=== PATIENT | male | born 1955 | race Caucasian/White ===

== ENCOUNTER 2021-03-23 12:40 | Emergency (ER) | payer MEDICARE, SELFPAY ==
[2021-03-23] VITALS (8 sets, daily range): BP systolic 126–194; BP diastolic 66–80; PULSE 90–120; RESP 18–23; TEMP 37.3; O2SAT 90–96; BMI 43.5
[2021-03-23 13:04] LABS: Glucose Point of Care 420 mg/dL (70-110)
--- NOTE | 2021-03-23 13:10 | XR_ITS ---
WS: [id number] Right clavicle, 2 views, 03/23/2021 Clinical Data: pain Comparison: None. Findings: No fractures or dislocations are seen. The AC joint is normal. The soft tissues are unremarkable. The sternoclavicular joint is normal. XR/[place] [id number] Impression: Negative right clavicle.
--- NOTE | 2021-03-23 13:10 | CT_ITS ---
WS: [id number] CT HEAD TECHNIQUE: Noncontrast CT of the head obtained from the skullbase to the vertex. CLINICAL INFORMATION: fall COMPARISON: None. DLP: 2004.[address] scans at [facility] use at least one of these dose optimization techniques: automated e xposure control; mA and/or kV adjustment per patient size (includes targeted exams where dose is matc hed to clinical indication); or iterative reconstruction. FINDINGS: Some images degraded by beam hardening artifact. No evidence of intracranial hemorrhage or mass effect. Prior postoperative changes left frontotempora l craniotomy. Encephalomalacia in the underlying frontal and anterior temporal lobes. Ventricular sys tem and basal cisterns are patent. Mild small vessel changes with mild parenchymal volume loss. No ex tra-axial fluid collections. No evidence of mass or mass effect. Paranasal sinuses and mastoid air cells are well aerated. .Normal visualized soft tissues. CT/CT head wo con* [id number] IMPRESSION: 1. No evidence of intracranial hemorrhage or mass effect. 2. Mild small vessel changes with mild parenchymal volume loss. 3. Prior postoperative changes left frontal temporal craniotomy with underlyin g encephalomalacia. 4. No acute intracranial findings.
--- NOTE | 2021-03-23 13:10 | XR_ITS ---
WS: [id number] Right shoulder, 3 views, 03/23/2021 Clinical Data: pain Comparison: None. Findings: No fractures or dislocations are seen. The AC joint is normal. The adjacent right clavicle, right sca pula and ribs are normal. The soft tissues are unremarkable. XR/XR shoulder RT min 2V* [id number] Impression: Negative right shoulder.
--- NOTE | 2021-03-23 13:10 | CT_ITS ---
WS: [id number] CT FACIAL BONES TECHNIQUE: Noncontrast facial bones with coronal and sagittal reformatted images. CLINICAL INFORMATION: fall COMPARISON: None. DLP: 987.[address] scans at [facility] use at least one of these dose optimization techniques: automated e xposure control; mA and/or kV adjustment per patient size (includes targeted exams where dose is matc hed to clinical indication); or iterative reconstruction. FINDINGS: Paranasal sinuses are well aerated. Mastoid air cells are well aerated. Prior postoperative changes l eft frontal craniotomy. Normal zygoma. Normal pterygoid plates. Normal lamina papyracea bilaterally. Anterior nasal bones are normal. Normal mandible. No evidence of mandibular fracture dislocation. Inf erior orbits are normal. Prominent periparotid and intraparotid lymph nodes in the upper neck partial ly visualized. This can be followed up with neck CT. CT/CT facial bones wo con* [id number] IMPRESSION: 1. No acute facial fractures. 2. Paranasal sinuses and mastoid air cells well aerated. 3. Prominent periparotid and intraparotid lymph nodes partially visualized. Th is can be followed up with contrast-enhanced neck CT.
--- NOTE | 2021-03-23 13:10 | XR_ITS ---
WS: [id number] Right arm and humerus, 2 views, 03/23/2021 Clinical Data: pain Comparison: None. Findings: No fractures or dislocations are seen. The shaft of the humerus is intact. The soft tissues of the r ight arm are normal. XR/[place] [id number] Impression: Negative right arm and humerus.
--- NOTE | 2021-03-23 13:10 | XR_ITS ---
WS: [id number] Portable AP upright chest, 03/23/2021 Clinical Data: dyspnea Comparison: Portable chest, 01/26/2018. Findings: No nodules, masses or effusions are seen. The heart is enlarged. The pulmonary vascularity is not increased. No pneumonia or pneumothorax is seen. There is left basilar atelectasis and/or scar ring unchanged. The aortic arch and descending thoracic aorta show minimal tortuosity. XR/XR chest 1V portable [id number] Impression: Cardiomegaly and atherosclerosis.
--- NOTE | 2021-03-23 13:10 | XR_ITS ---
WS: [id number] Right forearm, AP and lateral views, 03/23/2021 Clinical Data: pain Comparison: None. Findings: No fractures or dislocations are seen. The soft tissues are normal. The visualized right wrist and el bow show no obvious abnormalities. XR/XR forearm RT 2V [id number] Impression: Negative for fracture.
--- NOTE | 2021-03-23 13:10 | XR_ITS ---
WS: [id number] Right elbow, 3 views, 03/23/2021 Clinical Data: pain Comparison: None. Findings: No fractures or dislocations are seen. The radial head is normal. The soft tissues are unremarkable. XR/XR elbow RT min 3V* [id number] Impression: Negative right elbow.
--- NOTE | 2021-03-23 13:10 | W.ED.GENADLT ---
HPI - General Adult General: Chief complaint: General Medical Stated complaint: weakness, r shoulder pain Time Seen by Provider: 03/23/21 12:49 History of Present Illness: HPI narrative: Patient is a 65-year-old male with a history of COPD, diabetes, hypertension who presents emergency room 1 week of feeling weak. Patient says that he has been feeling nauseous and has had 4-5 episode of vomiting. Since last week, after mowing his lawn, patient noticed a red streak that is goes up to his right arm on the inner aspect. Patient also noticed a pop sensation and inability to range the R arm after mowing his lawn. Patient went to see a chiropractor for evaluation of the arm and had manipulation performed. No formal XR's were done. Since then, patient has had significant pain. Denies any fever or chills, cough/runny nose/sore throat. Patient reports significant exertional dyspnea. Of note, patient fell yesterday and hit his head. Onset: 1 week ago Duration:1 week Location:home Severity:moderate Review of Systems Narrative: Constitutional: No fever, no chills. HEENT: No vision changes CV: No chest pain, no palpitations PULM: no cough, +dyspnea. GI: No abdominal pain, +N/+V/-D. : No dysuria MSKEL: +R arm pain, +R inner arm redness, +R shoulder pain to ROM SKIN: No new rashes, no lesions. NEURO: No headache, no focal weakness. HEME: No visible bruises PSYCH: Normal mood Physical Exam Narrative: EXAM NARRATIVE: Head: Atraumatic Eyes: PERRL, conjunctiva without injection ENT: Mucous membrane moist NECK: Supple, ROM intact LUNGS: +Wheezing b/l CV: RRR ABDOMEN: Soft, nontender in all quadrants EXTREMITY: Normal ROM SKIN: +erythema over the R arm on the inner aspect, no focal crepitus to palpation on the affected arm, +moderate tenderness to palpation over the R shoulder/R eblow and R humerus NEURO: Awake and alert, no focal motor deficits PSYCH: Normal mood and affect Course Vital Signs: Vital signs: Vital Signs Temperature 99.2 F 03/23/21 12:47 Pulse Rate 109 H 03/23/21 21:46 Respiratory Rate 22 H 03/23/21 21:46 Blood Pressure 126/66 03/23/21 21:46 Pulse Oximetry 96 03/23/21 21:46 MDM - General Adult MDM Narrative: Medical decision making narrative: 65-year-old male presents emergency room with facial redness over the inner aspect of right arm and dyspnea x1 week in the setting of nausea vomiting. On exam, patient is hemodynamically stable noted to be mildly hypoxemic to the low 90s on 3 L nasal cannula. Patient has a baseline COPD and wheezing bilaterally Will evaluate for trauma since patient reports popping sensation in the R arm and inability to move with XR. White count of 19.9 today. Hemoglobin 7.9 today. proBNP and troponin mildly elevated today. Chest x-ray showed cardiomegaly. CT brain did not show any signs of brain bleed. Suspect possible infection of the arm. Breathing treatments given for wheezing Lab showed hyponatriemia, MONCHO, anemia, and hyperglycemia. Troponin mildly elevated. Patient is given clindamycin, vancomycin and cefepime for antibiotics and IVF. CT with contrast of the upper extremity showed right subscapularis gas, intra-articular gas, and right lateral chest cellulitis concerning for possible diffuse necrotizing/gas infection. Case was discussed with Dr. Jones for informs me that he does not feel comfortable with this procedure given possible involvement of the brachial plexus. Case was discussed with Dr. Matute at [facility] who agrees with the ED to ED transfer. Disposition: Transfer to outside ED Lab Data: Labs: Lab Results 03/23/21 03/23/21 03/23/21 12:55 13:00 13:00 WBC 19.9 10^3/uL H 10 ^3/uL (4.0-10.0) RBC 3.34 10^6/uL L 10 ^6/uL (4.1-5.3) Hgb 7.9 g/dL L g/dL (11.7-16.6) Hct 26.4 % L % (42.0-52.0) MCV 79.0 fl L fl (80-94) MCH 23.7 pg L pg (28.0-34.0) MCHC 29.9 g/dL L g/dL (30.0-36.0) RDW 15.2 % H % (12.1-15.1) Plt Count 288 10^3/cmm 10^3 /cmm (130-400) MPV 10.0 fL fL (7.4-10.4) Lymph % (Auto) Not Reportable Maries % (Auto) Not Reportable Lymph # (Auto) Not Reportable Maries # (Auto) Not Reportable Total Counted 100 (0-100) Atypical Lymphs % Not Reportable Absolute Neutrophi ls 18.3 10^3/cmm H 1 0^3/cmm (1.4-6.5) Segmented Neutroph ils 64 % % Abs Segm Neuts (Ma n) 12.7 10/cmm H 10/ cmm (1.6-7.1) Band Neutrophils 28.0 % % Abs Band Neuts (Ma n) 5.6 10^3/cmm H 10 ^3/cmm (0.0-1.2) Lymphocytes (Manua l) 5 % % Monocytes (Manual) 3.0 % % Absolute Monocytes 0.6 10^3/cmm 10^3 /cmm (0.1-0.6) Eosinophils (Manua l) Not Reportable Basophils (Manual) Not Reportable Platelet Estimate Normal (Normal) Giant Platelets Trace Hypochromasia 1+ H Microcytosis Trace Tear Drop Cells Trace Ovalocytes Trace Specimen Type Sample Site ABG pH ABG pCO2 ABG pO2 ABG HCO3 ABG Base Excess Matthew Test Hematocrit O2 Delivery Device O2 Liters/Min FiO2 Environmental Compliance Inspector ID Sodium 124 mmol/L L mmol /L (136-145) Potassium 4.3 mmol/L mmol/L (3.5-5.1) Chloride 89 mmol/L L mmol/ L (98-107) Carbon Dioxide 23 mmol/L mmol/L (22-29) Anion Gap 16.3 (5-19) BUN 43 mg/dL H mg/dL (8-23) Creatinine 1.6 mg/dL H mg/dL (0.7-1.2) GFR Calculation 43.6 mL/min L mL/ min (90-130) Glucose 367 mg/dL H mg/dL (65-115) POC Glucose 420 mg/dL H mg/dL (70-110) Calculated Osmolal ity 284 mOsm/kg L mOs m/kg (285-295) Lactate Calcium 8.5 mg/dL mg/dL (8.5-10.5) Total Bilirubin 0.4 mg/dL mg/dL (0.15-1.2) AST 25 U/L U/L (0-40) ALT 13 U/L U/L (0-41) Alkaline Phosphata se 117 IU/L IU/L (40-130) Troponin T Baselin e Troponin T 120 Min [place] Troponin T Troponin T Hi Sens 6Hr Troponin T Hi Sens 6Hr Delta NT-Pro-B Natriuret Pep 983 pg/mL H pg/mL (0-125) Total Protein 6.3 g/dL L g/dL (6.6-8.7) Albumin 2.5 g/dL L g/dL (3.5-5.2) Globulin 3.8 g/dL g/dL (1.3-4.6) Lipase 21 U/L U/L (13-60) Urine Color Urine Appearance Urine pH Ur Specific Gravit y Urine Protein Urine Glucose (UA) Urine Ketones Urine Blood Urine Nitrate Urine Bilirubin Urine Urobilinogen Ur Leukocyte Meg ase Urine RBC Urine WBC Ur Squamous Epith Cells Amorphous Sediment Urine Bacteria Hyaline Casts Urine Mucus SARS-CoV-2 Ag (Rap id) 03/23/21 03/23/21 03/23/21 13:00 13:00 14:38 WBC RBC Hgb Hct MCV MCH MCHC RDW Plt Count MPV Lymph % (Auto) Maries % (Auto) Lymph # (Auto) Maries # (Auto) Total Counted Atypical Lymphs % Absolute Neutrophi ls Segmented Neutroph ils Abs Segm Neuts (Ma n) Band Neutrophils Abs Band Neuts (Ma n) Lymphocytes (Manua l) Monocytes (Manual) Absolute Monocytes Eosinophils (Manua l) Basophils (Manual) Platelet Estimate Giant Platelets Hypochromasia Microcytosis Tear Drop Cells Ovalocytes Specimen Type Sample Site ABG pH ABG pCO2 ABG pO2 ABG HCO3 ABG Base Excess Matthew Test Hematocrit O2 Delivery Device O2 Liters/Min FiO2 Environmental Compliance Inspector ID Sodium Potassium Chloride Carbon Dioxide Anion Gap BUN Creatinine GFR Calculation Glucose POC Glucose Calculated Osmolal ity Lactate 2.1 mmol/L mmol/L (0.5-2.2) Calcium Total Bilirubin AST ALT Alkaline Phosphata se Troponin T Baselin e 25 ng/L H ng/L (0-15) Troponin T 120 Min [place] Troponin T Troponin T Hi Sens 6Hr Troponin T Hi Sens 6Hr [place] NT-Pro-B Natriuret Pep Total Protein Albumin Globulin Lipase Urine Color Urine Appearance Urine pH Ur Specific Gravit y Urine Protein Urine Glucose (UA) Urine Ketones Urine Blood Urine Nitrate Urine Bilirubin Urine Urobilinogen Ur Leukocyte Meg ase Urine RBC Urine WBC Ur Squamous Epith Cells Amorphous Sediment Urine Bacteria Hyaline Casts Urine Mucus SARS-CoV-2 Ag (Rap id) Negative (Negative) 03/23/21 03/23/21 03/23/21 15:10 15:12 15:53 WBC RBC Hgb Hct MCV MCH MCHC RDW Plt Count MPV Lymph % (Auto) Maries % (Auto) Lymph # (Auto) Maries # (Auto) Total Counted Atypical Lymphs % Absolute Neutrophi ls Segmented Neutroph ils Abs Segm Neuts (Ma n) Band Neutrophils Abs Band Neuts (Ma n) Lymphocytes (Manua l) Monocytes (Manual) Absolute Monocytes Eosinophils (Manua l) Basophils (Manual) Platelet Estimate Giant Platelets Hypochromasia Microcytosis Tear Drop Cells Ovalocytes Specimen Type Arterial Sample Site Radial, left ABG pH 7.36 (7.35-7.45) ABG pCO2 43.5 mmHg mmHg (35-45) ABG pO2 73.2 mmHg L mmHg (80.0-100.0) ABG HCO3 24.4 mmol/L mmol/ L (22-26) ABG Base Excess -1.0 mmol/L mmol/ L (-2.0-2.0) Matthew Test Pos Hematocrit 25.4 % L % (42-52) O2 Delivery Device Nc O2 Liters/Min 2.0 % % FiO2 28.0 % % Environmental Compliance Inspector ID Ed Sodium Potassium Chloride Carbon Dioxide Anion Gap BUN Creatinine GFR Calculation Glucose POC Glucose Calculated Osmolal ity Lactate Calcium Total Bilirubin AST ALT Alkaline Phosphata se Troponin T Baselin e Troponin T 120 Min [place] 25.87 ng/L H ng/L (0-15) Delta Troponin T 0.87 ABS# ABS# (0-10) Troponin T Hi Sens 6Hr Troponin T Hi Sens 6Hr [place] NT-Pro-B Natriuret Pep Total Protein Albumin Globulin Lipase Urine Color Yellow (Yellow) Urine Appearance Hazy A (CLEAR) Urine pH 6.5 (5-7) Ur Specific Gravit y 1.010 (1.005-1.030) Urine Protein Neg (Negative) Urine Glucose (UA) Norm (Normal) Urine Ketones Negative (Negative) Urine Blood 3+ H (Negative) Urine Nitrate Negative (Negative) Urine Bilirubin Neg (Negative) Urine Urobilinogen Norm mg/dL mg/dL (Negative) Ur Leukocyte Meg ase Negative (Negative) Urine RBC 5-10 /hpf H /hpf (0-2) Urine WBC 5-10 /hpf H /hpf (0-5) Ur Squamous Epith Cells Not Reportable Amorphous Sediment 2+ /hpf /hpf Urine Bacteria 1+ /hpf H /hpf (NONE) Hyaline Casts 0-4 /lpf H /lpf Urine Mucus 1+ /hpf /hpf SARS-CoV-2 Ag (Rap id) 03/23/21 19:15 WBC RBC Hgb Hct MCV MCH MCHC RDW Plt Count MPV Lymph % (Auto) Maries % (Auto) Lymph # (Auto) Maries # (Auto) Total Counted Atypical Lymphs % Absolute Neutrophi ls Segmented Neutroph ils Abs Segm Neuts (Ma n) Band Neutrophils Abs Band Neuts (Ma n) Lymphocytes (Manua l) Monocytes (Manual) Absolute Monocytes Eosinophils (Manua l) Basophils (Manual) Platelet Estimate Giant Platelets Hypochromasia Microcytosis Tear Drop Cells Ovalocytes Specimen Type Sample Site ABG pH ABG pCO2 ABG pO2 ABG HCO3 ABG Base Excess Matthew Test Hematocrit O2 Delivery Device O2 Liters/Min FiO2 Environmental Compliance Inspector ID Sodium Potassium Chloride Carbon Dioxide Anion Gap BUN Creatinine GFR Calculation Glucose POC Glucose Calculated Osmolal ity Lactate Calcium Total Bilirubin AST ALT Alkaline Phosphata se Troponin T Baselin e Troponin T 120 Min [place] Troponin T Troponin T Hi Sens 6Hr 23.23 ng/L H ng/L (0-15) Troponin T Hi Sens 6Hr Delta -1.77 ng/L L ng/L (0-12) NT-Pro-B Natriuret Pep Total Protein Albumin Globulin Lipase Urine Color Urine Appearance Urine pH Ur Specific Gravit y Urine Protein Urine Glucose (UA) Urine Ketones Urine Blood Urine Nitrate Urine Bilirubin Urine Urobilinogen Ur Leukocyte Meg ase Urine RBC Urine WBC Ur Squamous Epith Cells Amorphous Sediment Urine Bacteria Hyaline Casts Urine Mucus SARS-CoV-2 Ag (Rap id) Imaging Data^: Other Imaging: Radiologist's impression: [address] [address]NZyt ReportSigned Patient: Juan Thomasnit #: [id number]: 6Acct#:[id number]/Sex: 65 / MADM Date: 03/23/21Loc: ERRoom/Bed:Attending Dr: Ordering Provider/Ordering MD: Maru Ford MD Date of Service: 03/23/21 Procedure(s): XR shoulder RT min 2V* 24172 Accession Number(s): [id number] Report Number: [id number] WS: [email or web address] Right shoulder, 3 views, 03/23/2021 Clinical Data: pain Comparison: None. Findings: No fractures or dislocations are seen. The AC joint is normal. The adjacent right clavicle, right scapula and ribs are normal. The soft tissues are unremarkable. XR/XR shoulder RT min 2V* 23950 Impression: Negative right shoulder. Dictated By:Cortney Goss MDSigned By:Cortney Goss MDSigned Date/Time:03/23/211407DD/ [address] [place] [address], [place] [address]VOic ReportSigned Patient: Juan Thomas #: [id number]: 1955cct#:[id number]/Sex: 65 / MADM Date: 03/23/21Loc: ERRoom/Bed:Attending Dr: Ordering Provider/Ordering MD: Maru Ford MD Date of Service: 03/23/21 Procedure(s): [place] [address] Accession Number(s): [id number] Report Number: [id number] WS: [email or web address] Right arm and humerus, 2 views, 03/23/2021 Clinical Data: pain Comparison: None. Findings: No fractures or dislocations are seen. The shaft of the humerus is intact. The soft tissues of the right arm are normal. XR/[place] [address] Impression: Negative right arm and humerus. Dictated By:Cortney Goss MDSigned By:Cortney Goss MDSigned Date/Time:03/23/21 140DD/ 1408 [facility] [place], [place] [address]LR Scan ReportSigned Patient: Juan Thomas #: [id number]: 1955cct#:[id number]/Sex: 65 / MADM Date: 03/23/21Loc: ERRoom/Bed:Attending Dr: Ordering Provider/Ordering MD: Maru Ford MD Date of Service: 03/23/21 Procedure(s): CT head wo con* 79362 Accession Number(s): [id number] Report Number: [id number] WS: [id number] CT HEAD TECHNIQUE: Noncontrast CT of the head obtained from the skullbase to the vertex. CLINICAL INFORMATION: fall COMPARISON: None. DLP: 2004.[address] scans at [facility] use at least one of these dose optimization techniques: automated exposure control; mA and/or kV adjustment per patient size (includes targeted exams where dose is matched to clinical indication); or iterative reconstruction. FINDINGS: Some images degraded by beam hardening artifact. No evidence of intracranial hemorrhage or mass effect. Prior postoperative changes left frontotemporal craniotomy. Encephalomalacia in the underlying frontal and anterior temporal lobes. Ventricular system and basal cisterns are patent. Mild small vessel changes with mild parenchymal volume loss. No extra-axial fluid collections. No evidence of mass or mass effect. Paranasal sinuses and mastoid air cells are well aerated. .Normal visualized soft tissues. CT/CT head wo con* 81106 IMPRESSION: 1. No evidence of intracranial hemorrhage or mass effect. 2. Mild small vessel changes with mild parenchymal volume loss. 3. Prior postoperative changes left frontal temporal craniotomy with underlying encephalomalacia. 4. No acute intracranial findings. Dictated By:Daljit Villalpando MDSigned By:Daljit Villalpando MDSigned Date/Time:03/23/21 1401DD/ 1358 [address] Thomasnis Marie 65 M 1955 [facility] [place] [address]KVpb ReportSigned Patient: Juan Thomas #: [id number]: 1955cct#:[id number]/Sex: 65 / MADM Date: 03/23/21Loc: ERRoom/Bed:Attending Dr: Ordering Provider/Ordering MD: Maru Ford MD Date of Service: 03/23/21 Procedure(s): XR forearm RT 2V 68339 Accession Number(s): [id number] Report Number: [id number] WS: [email or web address] Right forearm, AP and lateral views, 03/23/2021 Clinical Data: pain Comparison: None. Findings: No fractures or dislocations are seen. The soft tissues are normal. The visualized right wrist and elbow show no obvious abnormalities. XR/XR forearm RT 2V 56484 Impression: Negative for fracture. Dictated By:Cortney Goss MDSigned By:Cortney Goss MDSigned Date/Time:03/23/[address] [address]FP Scan ReportSigned Patient: Juan Thomas #: [id number]: 1955t#:[id number]/Sex: 65 / MAD Date: 03/23/21Loc: ERRoom/Bed:Attending Dr: Ordering Provider/Ordering MD: Maru Ford MD Date of Service: 03/23/21 Procedure(s): CT facial bones wo con* 90032 Accession Number(s): [id number] Report Number: [id number] WS: [id number] CT FACIAL BONES TECHNIQUE: Noncontrast facial bones with coronal and sagittal reformatted images. CLINICAL INFORMATION: fall COMPARISON: None. DLP: 987.[address] scans at [facility] use at least one of these dose optimization techniques: automated exposure control; mA and/or kV adjustment per patient size (includes targeted exams where dose is matched to clinical indication); or iterative reconstruction. FINDINGS: Paranasal sinuses are well aerated. Mastoid air cells are well aerated. Prior postoperative changes left frontal craniotomy. Normal zygoma. Normal pterygoid plates. Normal lamina papyracea bilaterally. Anterior nasal bones are normal. Normal mandible. No evidence of mandibular fracture dislocation. Inferior orbits are normal. Prominent periparotid and intraparotid lymph nodes in the upper neck partially visualized. This can be followed up with neck CT. CT/CT facial bones wo con* 87192 IMPRESSION: 1. No acute facial fractures. 2. Paranasal sinuses and mastoid air cells well aerated. 3. Prominent periparotid and intraparotid lymph nodes partially visualized. This can be followed up with contrast-enhanced neck CT. Dictated By:Daljit Villalpando MDSigned By:Daljit Villalpando MDSigned Date/Time:03/23/21 1406DD/ [address] [place], [place] [address]DQqd ReportSigned Patient: Juan Thomas #: [id number]: 1955cct#:[id number]/Sex: 65 MADM Date: 03/23/21Loc: ERRoom/Bed:Attending Dr: Ordering Provider/Ordering MD: Maru Ford MD Date of Service: 03/23/21 Procedure(s): XR elbow RT min 3V* 64506 Accession Number(s): [id number] Report Number: [id number] WS: [email or web address] Right elbow, 3 views, 03/23/2021 Clinical Data: pain Comparison: None. Findings: No fractures or dislocations are seen. The radial head is normal. The soft tissues are unremarkable. XR/XR elbow RT min 3V* 94222 Impression: Negative right elbow. Dictated By:Cortney Goss MDSigned By:Cortney Goss MDSigned Date/Time:03/23/21 1409DD/ 1409\ [facility] [place], [place] [address]WMhl ReportSigned Patient: Juan Thomas #: [id number]: 1955cct#:[id number]/Sex: 65 / MADM Date: 03/23/21Loc: ERRoom/Bed:Attending Dr: Ordering Provider/Ordering MD: Maru Ford MD Date of Service: 03/23/21 Procedure(s): [place] [address] Accession Number(s): [id number] Report Number: [id number] WS: [email or web address] Right clavicle, 2 views, 03/23/2021 Clinical Data: pain Comparison: None. Findings: No fractures or dislocations are seen. The AC joint is normal. The soft tissues are unremarkable. The sternoclavicular joint is normal. XR/[place] [address] Impression: Negative right clavicle. Dictated By:Cortney Goss MDSigned By:Cortney Goss MDSigned Date/Time:03/23/21 1407DD/ [address] [place], [place] [address]WBmk ReportSigned Patient: Juan Thomas #: [id number]: 1955cct#:[id number]/Sex: 65 / MADM Date: 03/23/21Loc: ERRoom/Bed:Attending Dr: Ordering Provider/Ordering MD: Maru Ford MD Date of Service: 03/23/21 Procedure(s): XR chest 1V portable 30400 Accession Number(s): [id number] Report Number: [id number] WS: [email or web address] Portable AP upright chest, 03/23/2021 Clinical Data: dyspnea Comparison: Portable chest, 01/26/2018. Findings: No nodules, masses or effusions are seen. The heart is enlarged. The pulmonary vascularity is not increased. No pneumonia or pneumothorax is seen. There is left basilar atelectasis and/or scarring unchanged. The aortic arch and descending thoracic aorta show minimal tortuosity. XR/XR chest 1V portable 21876 Impression: Cardiomegaly and atherosclerosis. Dictated By:Cortney Goss MDSigned By:Cortney Goss MDSigned Date/Time:03/23/218DD/ 1426 [facility] [place], [place] [address]SS Scan ReportSigned Patient: Juan Thomas #: [id number]: 1955t#:[id number]/Sex: 65 / MADM Date: 03/23/21Loc: ERRoom/Bed:Attending Dr: Ordering Provider/Ordering MD: Maru Ford MD Date of Service: 03/23/21 Procedure(s): CT humerus RT w con Accession Number(s): [id number] Report Number: [id number] PROCEDURE INFORMATION: Exam: CT Right Upper Extremity With Contrast, Upper Arm Exam date and time: 03/23/2021 5:10 PM Age: 65 years old Clinical indication: Pain; Swelling; Arm, upper; Right; Upper arm; Additional info: Right shoulder pain- eval soft tissue infection TECHNIQUE: Imaging protocol: CT of the Right upper extremity with contrast material. Exam focused on the upper arm. Radiation optimization: All CT scans at this facility use at least one of these dose optimization techniques: automated exposure control; mA and/or kV adjustment per patient size (includes targeted exams where dose is matched to clinical indication); or iterative reconstruction. Contrast material: VISI 320; Contrast volume: 95 ml; Contrast route: INTRAVENOUS (IV); COMPARISON: CT humerus RT w con 03/23/2021 5:00 PM RADIATION DOSE METRICS: Total DLP (mGy-cm): 3894.39 FINDINGS: Bones/joints: No lytic bone lesions. No fractures. Unremarkable glenohumeral joint space alignment. Probable foci of air within the right glenohumeral joint. Small glenohumeral joint effusion cannot be excluded. Low-attenuation fluid and foci of gas in the right acromioclavicular joint. Soft tissues: Subcutaneous soft tissue fat stranding changes are noted in the medial right upper arm. Superficial subcutaneous soft tissue fat stranding changes are noted in the right lateral chest wall. Decreased attenuation in the right subscapularis muscle probably representing muscle necrosis or fluid pockets within the musculature. Scattered foci of air in the right axilla, subscapularis muscle, right pectoralis muscle, right biceps musculature. CT/CT humerus RT w con IMPRESSION: 1. Areas of soft tissue inflammation in the right lateral chest wall and the right upper arm consistent with cellulitis. 2. Areas of fluid attenuation in the right subscapularis with foci of gas representing myositis and possibly multifocal abscesses. 3. Intra-articular air and possible right glenohumeral joint effusion. Cannot exclude septic arthritis. 4. Intra-articular air and small amount of fluid within the right acromioclavicular joint. Septic arthritis not excluded. Radiation Dose CTDIVOL = (mGy): DLP = 3894.39 (mGy-cm) Dictated By:Prasanna Solis By:Prasanna Solis Date/Time:03/23/21 1823DD/ 1710 Discharge Plan Discharge Patient Disposition: Transfer to ED Clinical Impression: Dyspnea, Cellulitis, Anemia, Elevated troponin, Acute hyponatremia, Hypoxemia, Necrotizing soft tissue infection Condition: Stable Prescriptions: No Action atorvastatin 20 mg tablet 20 mg PO DAILY RF: 0 albuterol sulfate 2.5 mg /3 mL (0.083 %) solution for nebulization 2.5 mg inhalation Q4H PRN (Reason: Shortness Of Breath) RF: 0 spironolacton-hydrochlorothiaz 25-25 mg tablet 0.5 tab PO QAM RF: 0 sertraline 100 mg tablet 100 mg PO DAILY RF: 0 clonazepam 1 mg tablet 1 mg PO BEDTIME RF: 0 amlodipine 5 mg tablet 5 mg PO QAM RF: 0 levothyroxine 25 mcg tablet 25 mcg PO QAM RF: 0 gabapentin 800 mg tablet 800 mg PO BID RF: 0 trazodone 150 mg tablet 150 mg PO BEDTIME RF: 0 metformin 1,000 mg tablet 1,000 mg PO BID RF: 0 metoprolol tartrate 50 mg tablet 50 mg PO BID RF: 0 omeprazole 20 mg capsule,delayed release(DR/EC) 20 mg PO QAM RF: 0 lisinopril 5 mg tablet 5 mg PO DAILY RF: 0 Wixela Inhub 100-50 mcg/dose blister with device 1 ea INHALATION BID RF: 0 albuterol sulfate 90 mcg/actuation HFA aerosol inhaler 2 puff INHALATION Q4H PRN (Reason: Shortness Of Breath) RF: 0 Novolog Mix 70-30 U-100 Insuln 100 unit/mL (70-30) solution See Rx Instructions .ROUTE .COMPLEX RF: 0 ibuprofen 200 mg Tablet 800 mg PO Q8H PRN (Reason: Pain) RF: 0 Referrals: Adin,Luisa G, REFINERY OPERATOR ALKYLATION [Primary Care Provider] - Coding Level of Care Code ED Networker for Josh Gallego
--- NOTE | 2021-03-23 13:12 | ECG_ITS ---
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 Measurements Intervals [place] Rate: 92 P: 48 [place]: 171 QRS: 16 QRSD: 107 T: 44 QT: 380 QTc: 470 Interpretive Statements SINUS RHYTHM Compared to ECG 01/26/2018 00:27:42 No significant changes Electronically Signed On 03-24-2021 22:47:17 CDT by Bora Gómez M.D. [email or web address]
[2021-03-23 13:21] LABS: Hematocrit 26.4 % (42.0-52.0); Hemoglobin 7.9 g/dL (11.7-16.6); Mean Corpuscular HGB Conc 29.9 g/dL (30.0-36.0); Mean Corpuscular Hemoglobin 23.7 pg (28.0-34.0); Platelet Count 288 10^3/cmm (130-400); Red Blood Count 3.34 10^6/uL (4.1-5.3); Red Cell Distribution Width 15.2 % (12.1-15.1); White Blood Count 19.9 10^3/uL (4.0-10.0)
[2021-03-23 13:34] LABS: Lactate (Lactic Acid level) 2.1 mmol/L (0.5-2.2)
[2021-03-23 13:38] LABS: Troponin(5th) Baseline 25 ng/L (0-15)
[2021-03-23 13:44] LABS: Alanine Aminotransferase 13 U/L (0-41); Albumin Level 2.5 g/dL (3.5-5.2); Alkaline Phosphatase 117 IU/L (40-130); Aspartate Amino Transferase 25 U/L (0-40); Blood Urea Nitrogen 43 mg/dL (8-23); Calcium 8.5 mg/dL (8.5-10.5); Carbon Dioxide 23 mmol/L (22-29); Chloride 89 mmol/L (98-107); Globulin 3.8 g/dL (1.3-4.6); Glomerular Filtration Rate 43.6 mL/min (90-130); Glucose 367 mg/dL (65-115); Lipase 21 U/L (13-60); NT Pro B Type Natriuretic Pept 983 pg/mL (0-125); Osmolality Calculated 284 mOsm/kg (285-295); Sodium 124 mmol/L (136-145); Total Bilirubin 0.4 mg/dL (0.15-1.2); Total Protein 6.3 g/dL (6.6-8.7)
[2021-03-23 13:50] LABS: Anion Gap 16.3 (5-19); Creatinine Clr Calc Pharmacy 70.1914
[2021-03-23 13:51] LABS: Potassium 4.3 mmol/L (3.5-5.1)
[2021-03-23 14:12] LABS: Absolute Neutrophil 18.3 10^3/cmm (1.4-6.5); Absolute Segmented Neutrophil 12.7 10/cmm (1.6-7.1); Band Neutrophils Absolute 5.6 10^3/cmm (0.0-1.2); Giant Platelets Trace; Hypochromasia 1+; Lymphocytes 5 %; Microcytosis Trace; Monocytes Absolute 0.6 10^3/cmm (0.1-0.6); Platelet Estimate Normal (Normal); Segmented Neutrophils 64 %; Total Cells Counted 100 (0-100)
[2021-03-23 14:13] LABS: Ovalocytes Trace; Tear Drop Cells Trace
[2021-03-23] MEDS: sodium chloride 0.9% 500 ML IV (14:30)
[2021-03-23] MEDS: morphine 4 mg/mL SDV 1 mL IVP (14:30)
[2021-03-23] MEDS: ipratropium-albuterol 3 mL Neb INHALATION ×3 (15:08)
[2021-03-23] MEDS: vancomycin 1,000 MG in sodium chloride 0.9% 250 ML 250 MG IV (15:11)
--- NOTE | 2021-03-23 15:12 | ECG_ITS ---
[facility] Test Date: 2021-03-23 Pat Name: Juan Thomas Department: Room: Gender: Male Sanitizer: : 1955 Requested By: Maru Ford Order Number: [id number] Gaudencio MD: Bora Gómez M.D. Measurements Intervals [place] Rate: 96 P: 43 DC: 165 QRS: 13 QRSD: 107 T: 57 QT: 360 QTc: 455 Interpretive Statements SINUS RHYTHM MODERATE INTRAVENTRICULAR CONDUCTION DELAY [105+ ms QRS DURATION, 80+ ms Q/S IN V1/V2, NO Q AND 60+ ms R IN I/aVL/V5/V6] NONSPECIFIC ST & T-WAVE ABNORMALITY Compared to ECG 03/23/2021 14:14:03 Intraventricular conduction delay now present T-wave abnormality now present Electronically Signed On 03-24-2021 22:50:20 CDT by Bora Gómez M.D. [id number] f
--- NOTE | 2021-03-23 15:19 | PC.PHAR ---
PT STATES HE TAKES CARE OF HIS OWN MEDICATIONS-PT STATES HE TAKES CARE OF THE MEDICATIONS ENTERED-PT STATES HE IS UNSURE IF HE TAKES THE SERTRALINE 100MG DAILY EXT MED HISTORY SHOWS LAST FILLED ON 01/13/21 90D/S
[2021-03-23 15:20] LABS: SARS Covid-2 Antigen Negative (Negative)
[2021-03-23 15:20] LABS: ABG PCO2 43.5 mmHg (35-45); ABG PH Result 7.36 (7.35-7.45); Arterial Blood Gas Hematocrit 25.4 % (42-52); Blood Gas Allen Test Pos; Blood Gas Sample Type Arterial; HCO3 ABG 24.4 mmol/L (22-26); PO2 ABG 73.2 mmHg (80.0-100.0)
[2021-03-23 15:21] LABS: Blood Gas Operator Identificat ED; Blood Gas Sample Site Radial, left; Oxygen Device NC
[2021-03-23 15:36] LABS: Troponin 5 2HR 25.87 ng/L (0-15); Troponin 5 2HR Delta 0.87 ABS# (0-10)
[2021-03-23 16:49] LABS: Add Urine Microscopic? YES; Bilirubin Urine Neg (Negative); Blood Urine 3+ (Negative); Glucose Urine UA Norm (Normal); Ketones Urine Negative (Negative); Leukocyte Esterase Urine Negative (Negative); Nitrate Urine Negative (Negative); Protein Urine Neg (Negative); Urine Appearance Hazy (CLEAR); Urine Color Yellow (Yellow); Urobilinogen Urine Norm (Negative); pH Urine 6.5 (5-7)
[2021-03-23] MEDS: HYDROmorphone 1 mg/mL INJ 1 mL IVP (16:49)
[2021-03-23 16:50] LABS: Amorphous Sediment Urine 2+ /hpf; Bacteria Urine 1+ /hpf; Hyaline Casts Urine 0-4 /lpf; Mucus Urine 1+ /hpf
[2021-03-23 16:51] LABS: Add Urine Culture? No
[2021-03-23] MEDS: clindamycin 600 MG/50 ML PREMIX 100 MG IV (16:55)
--- NOTE | 2021-03-23 17:10 | CTR_ITS ---
PROCEDURE INFORMATION: Exam: CT Right Upper Extremity With Contrast, Upper Arm Exam date and time: 03/23/2021 5:10 PM Age: 65 years old Clinical indication: Pain; Swelling; Arm, upper; Right; Upper arm; Additional info: Right shoulder pain- eval soft tissue infection TECHNIQUE: Imaging protocol: CT of the Right upper extremity with contrast material. Exam focused on the upper arm. Radiation optimization: All CT scans at this facility use at least one of these dose optimization techniques: automated exposure control; mA and/or kV adjustment per patient size (includes targeted exams where dose is matched to clinical indication); or iterative reconstruction. Contrast material: VISI 320; Contrast volume: 95 ml; Contrast route: INTRAVENOUS (IV); COMPARISON: CT humerus RT w con [id number] 03/23/2021 5:00 PM RADIATION DOSE METRICS: Total DLP (mGy-cm): 3894.39 FINDINGS: Bones/joints: No lytic bone lesions. No fractures. Unremarkable glenohumeral joint space alignment. Probable foci of air within the right glenohumeral joint. Small glenohumeral joint effusion cannot be excluded. Low-attenuation fluid and foci of gas in the right acromioclavicular joint. Soft tissues: Subcutaneous soft tissue fat stranding changes are noted in the medial right upper arm. Superficial subcutaneous soft tissue fat stranding changes are noted in the right lateral chest wall. Decreased attenuation in the right subscapularis muscle probably representing muscle necrosis or fluid pockets within the musculature. Scattered foci of air in the right axilla, subscapularis muscle, right pectoralis muscle, right biceps musculature. CT/CT humerus RT w con IMPRESSION: 1. Areas of soft tissue inflammation in the right lateral chest wall and the right upper arm consistent with cellulitis. 2. Areas of fluid attenuation in the right subscapularis with foci of gas representing myositis and possibly multifocal abscesses. 3. Intra-articular air and possible right glenohumeral joint effusion. Cannot exclude septic arthritis. 4. Intra-articular air and small amount of fluid within the right acromioclavicular joint. Septic arthritis not excluded. Radiation Dose CTDIVOL = (mGy): DLP = 3894.39 (mGy-cm)
[2021-03-23] MEDS: iodixanol 320 mg/mL 100mL Btl IV (17:23)
[2021-03-23] MEDS: cefepime 1,000 MG in sodium chloride 0.9% (plus) 50 ML 100 MG IV (18:42)
[2021-03-23 19:58] LABS: Troponin 5 6HR 23.23 ng/L (0-15); Troponin 5 6HR Delta -1.77 ng/L (0-12)
[2021-03-23] MEDS: naloxone 0.4 mg/ml SDV 0.2 MG IVP (20:15)
--- NOTE | 2021-03-23 21:32 | PC.NURSE ---
pt O2 sats dropping to 87% on 2lpm. Pt not responsive to sternal rub or verbal stimulation. O2 increased to 6lpm, Dr notified. vo obtained for 0.4mg of Narcan IVP. after initial IVP, pt GCS improved from 9 to 13. Additional orders obtained from 2mg of Narcan IVP. After second dose of Narcan, pt GCS improved to 15. Report given to EMS. Family updated on transfer status. Pt assisted to stretcher with EMS assistance.
[2021-03-24 16:56] LABS: Coronavirus Test Green County Not Detected
== END 2021-03-23 21:25 ==
PROVIDERS: Emergency Provider Emergency Medicine; PCP Nurse Practitioner
DX: L03.313 Cellulitis of chest wall (principal); R06.00 Dyspnea, unspecified; D64.9 Anemia, unspecified; R77.8 Other specified abnormalities of plasma proteins; E87.1 Hypo-osmolality and hyponatremia; R09.02 Hypoxemia; B99.8 Other infectious disease; M72.6 Necrotizing fasciitis; Z20.822 Contact with and (suspected) exposure to COVID-19
CPT/HCPCS: 36416; 36600; 51702; 70450; 70486; 71045; 73000; 73030; 73060; 73080; 73090; 73201; 80053; 81001; 82803; 82962; 83605; 83690; 83880; 84484; 85007; 85025; 87040; 87077; 87186; 87205; 87426; 87635; 93005; 94640; 96365; 96367; 96375; 99285; J0692; J1170; J2270; J2310; J3370; J3490; J7040; J7050; Q9967

== ENCOUNTER 2021-06-09 05:43 | Emergency (ER) | payer MEDICARE, SELFPAY ==
--- NOTE | 2021-06-09 05:47 | CTR_ITS ---
PROCEDURE INFORMATION: Exam: CT Head Without Contrast Exam date and time: 06/09/2021 5:47 AM Age: 65 years old Clinical indication: Injury or trauma; Blunt trauma (contusions or hematomas); Patient HX: Patient has recently sustained multiple falls and fell again this morning from standing at a nursing faciltiy. States hitting head. C/O of head and neck pain. ; Additional info: URBINA TECHNIQUE: Imaging protocol: Computed tomography of the head without contrast. Radiation optimization: All CT scans at this facility use at least one of these dose optimization techniques: automated exposure control; mA and/or kV adjustment per patient size (includes targeted exams where dose is matched to clinical indication); or iterative reconstruction. COMPARISON: CT head wo con* [id number] 03/23/2021 1:21 PM RADIATION DOSE METRICS: Total DLP (mGy-cm): 705.73 FINDINGS: Brain: On axial image # 49, series 400, suspect a very small subtle area of possible subdural blood adjacent to the right posterior falx. This only measures about 1 mm in thickness, and 4 mm in AP dimension, but the appearance was not present on the comparison exam. Follow-up may be helpful to exclude progression, as clinically directed. No mass effect or midline shift. No other acute intracranial hemorrhage. There is decreased attenuation in the periventricular white matter, likely from microvascular disease. Area of chronic encephalomalacia again seen in the anterior left temporal region. No definite acute infarct by CT. MRI could be more sensitive/specific for detection, as clinically directed. Cerebral ventricles: Ventricle size is normal for age. Paranasal sinuses: Minimal mucosal thickening in the sphenoid sinus. Included paranasal sinuses otherwise appear essentially clear. Mastoid air cells: No significant acute finding. Vasculature: Vascular calcifications in the internal carotid and vertebral basilar systems. Bones/joints: No definite acute skull fracture. Prior left temporal craniotomy. CT/CT head wo con* [id number] IMPRESSION: 1. Suspect a very small subtle area of possible subdural blood adjacent to the right posterior falx. Please see above details/discussion. 2. No mass effect or midline shift. 3. No other acute intracranial hemorrhage. 4. Changes of microvascular disease. 5. No definite acute infarct by CT, see above. 6. Other findings discussed above.
--- NOTE | 2021-06-09 05:47 | CTR_ITS ---
PROCEDURE INFORMATION: Exam: CT Cervical Spine Without Contrast Exam date and time: 06/09/2021 5:47 AM Age: 65 years old Clinical indication: Injury or trauma; Blunt trauma; Patient HX: Patient has recently sustained multiple falls and fell again this morning from standing at a nursing faciltiy. States hitting head. C/O of head and neck pain. ; Additional info: Fall TECHNIQUE: Imaging protocol: Computed tomography images of the cervical spine without contrast. Radiation optimization: All CT scans at this facility use at least one of these dose optimization techniques: automated exposure control; mA and/or kV adjustment per patient size (includes targeted exams where dose is matched to clinical indication); or iterative reconstruction. COMPARISON: No relevant prior studies available. RADIATION DOSE METRICS: Total DLP (mGy-cm): 863.86 FINDINGS: Bones/joints: On axial CT images, no definite acute fracture is visible. Sagittal and coronal reconstructions show no acute fracture or subluxation. Mild to moderate degenerative disc changes and facet joint arthritis at multiple levels. Discs/Spinal canal/Neural foramina: No definite/significant disc herniation by CT, MRI could be more sensitive if clinically indicated. Mastoid air cells: Small amount of fluid in inferior mastoid air cells bilaterally, greater on the left. No visible fracture in these regions. Lungs: No significant acute finding in the upper lungs. CT/CT cervical spin wo con* [id number] IMPRESSION: 1. No definite acute fracture or subluxation by CT. 2. Other findings discussed above.
--- NOTE | 2021-06-09 05:48 | ED_ITS ---
Documented by User: Ronaldo Tobias MD 06/09/21 05:53 HPI - Head Injury General: Chief complaint: Fall Stated complaint: FALL Time Seen by Provider: 06/09/21 05:46 Source: patient Mode of arrival: ambulatory Limitations: no limitations History of Present Illness: HPI Narrative: 65-year-old male who is here from [facility] he has had multiple falls there actually had a fall just the fourth. Hit his head then. Fell out of his bed again tonight states that he hit his head he is got head pain he rates a 3 out of 10 also some slight neck and right shoulder pain denies any other injuries no new lacerations denies any worsening improving factors. He has had no vomiting Associated symptoms: Deny nausea, neck pain or vomiting Review of Systems Const: Denies: fever(s), chills, body aches or change in appetite Eyes: Denies: blurry vision or eye discomfort ENMT: Denies: throat pain or dental pain Card: Denies: chest pain Resp: Denies: dyspnea GI: Denies: abdominal pain, nausea, vomiting or diarrhea : Denies: dysuria Musc: Denies: neck pain or back pain Skin/Breast: Denies: rash Neuro: Reports: headache(s) Psych: Denies: depression Keshav/Lymph: Denies: easy bruising All/Imm: Denies: urticaria PFSH ED PFSH: Medical History (Updated 06/09/21 @ 09:40 by Clayton Ricci DO) COPD (chronic obstructive pulmonary disease) Diabetes HTN (hypertension) Necrotizing fasciitis of shoulder region Social History Smoking and tobacco status: former smoker Alcohol intake: never Physical Exam Const: COMMON NORMALS: no acute distress, patient oriented x3 and healthy appearing HENMT: COMMON NORMALS: normocephalic HEAD & SCALP: normocephalic OTHER: Old laceration to forehead no new injuries noted Eye: COMMON NORMALS: Equal, round and reactive pupils present and EOMs intact bilaterally PUPIL: Yes Equal, round and reactive pupils present Neck/C-Spine: COMMON NORMALS: full ROM and supple Chest: COMMONS NORMALS: normal inspection of the chest and normal palpation of entire chest wall Resp: COMMON NORMALS: normal respiratory effort, No retractions, No use of accessory muscles and clear to auscultation bilaterally AUSCULTATION: clear to auscultation bilaterally Cardio: COMMON NORMALS: regular rate, regular rhythm and No murmurs present (Cardio) RATE: regular rate RHYTHM: regular rhythm GI: COMMON NORMALS: Normal to inspection, nondistended, normoactive bowel sounds present, Soft to palpation, non-tender and no masses PALPATION: Yes Soft to palpation Extremity: COMMON NORMALS: normal to inspection and full ROM Neuro: COMMON NORMALS: patient oriented x3, moves all extremities and no focal motor deficits Psych: COMMON NORMALS: mental status grossly normal, Normal thought process present and cooperative THOUGHT PROCESS: Normal thought process present Skin: COMMON NORMALS: no rashes or lesions noted and no wounds GENERAL SKIN EXAM: no rashes or lesions noted Course Vital Signs: Vital signs: Vital Signs Temperature 98.1 F 06/09/21 05:51 Pulse Rate 101 H 06/09/21 09:54 Respiratory Rate 24 H 06/09/21 10:00 Blood Pressure 180/95 06/09/21 09:54 Pulse Oximetry 91 06/09/21 09:54 Discharge Plan Discharge Patient Disposition: Home Clinical Impression: Fall, Subdural hematoma caused by concussion Condition: Stable Prescriptions: New levofloxacin 500 mg tablet 500 mg PO DAILY 7 Days RF: 0 No Action atorvastatin 20 mg tablet 20 mg PO DAILY RF: 0 albuterol sulfate 2.5 mg /3 mL (0.083 %) solution for nebulization 2.5 mg inhalation Q4H PRN (Reason: Shortness Of Breath) RF: 0 spironolacton-hydrochlorothiaz 25-25 mg tablet 0.5 tab PO QAM RF: 0 sertraline 100 mg tablet 100 mg PO DAILY RF: 0 clonazepam 1 mg tablet 1 mg PO BEDTIME RF: 0 amlodipine 5 mg tablet 5 mg PO QAM RF: 0 levothyroxine 25 mcg tablet 25 mcg PO QAM RF: 0 gabapentin 800 mg tablet 800 mg PO BID RF: 0 trazodone 150 mg tablet 150 mg PO BEDTIME RF: 0 metformin 1,000 mg tablet 1,000 mg PO BID RF: 0 metoprolol tartrate 50 mg tablet 50 mg PO BID RF: 0 omeprazole 20 mg capsule,delayed release(DR/EC) 20 mg PO QAM RF: 0 lisinopril 5 mg tablet 5 mg PO DAILY RF: 0 Wixela Inhub 100-50 mcg/dose blister with device 1 ea INHALATION BID RF: 0 albuterol sulfate 90 mcg/actuation HFA aerosol inhaler 2 puff INHALATION Q4H PRN (Reason: Shortness Of Breath) RF: 0 Novolog Mix 70-30 U-100 Insuln 100 unit/mL (70-30) solution See Rx Instructions .ROUTE .COMPLEX RF: 0 ibuprofen 200 mg Tablet 800 mg PO Q8H PRN (Reason: Pain) RF: 0 Discharge Orders: Discharge ED (Routine); Ordered 06/09/21 Ordered By: Clayton Ricci Referrals: Luisa Oakley APN [Primary Care Provider] - Discharge Diet: Usual diet Discharge Activity: Limit activity as instructed Patient Instructions: Opioid Safety Activity Restrictions/Additional Instructions: Discharge back to the senior care follow-up with Dr. Contreras within the next week for repeat head CT continue Lovenox per the recommendation of neurosurgery. Coding Level of Care Code ED Equipment Maintenance Supervisor for Chg Fwd Exam Comprehensive Documented by User: Clayton Ricci DO 06/10/21 12:13 HPI - Head Injury General: Chief complaint: Fall Stated complaint: FALL Time Seen by Provider: 06/09/21 05:46 History of Present Illness: HPI Narrative: 65-year-old male arrives in the from the senior care via EMS. Patient fell off of position multiple falls he actually has a laceration repair from previous fall in the forehead. No loss consciousness. Patient was initially seen by Dr. Jatinder cherry turned over at change of shift. He is on Lovenox. Complaint: head injury Onset (ago): minute(s) Mechanism of Injury: fall Place: other (snf) Loss of Consciousness: no Location of injury: frontal Severity: mild Radiation: none Other Injuries: laceration Context: other anticoagulant use Associated symptoms: Deny amnesia, confusion, nausea, neck pain, numbness, syncope, tingling, vertigo, visual changes, vomiting or weakness Review of Systems Const: Denies: fever(s), chills, body aches, change in appetite, fatigue or malaise ENMT: Denies: throat pain, ear or mastoid pain, nasal discharge or nasal congestion Card: Denies: syncope Resp: Denies: dyspnea, productive cough or non-productive cough GI: Denies: nausea or vomiting : Denies: flank pain, dysuria, urinary frequency or urinary urgency Musc: Denies: neck pain Skin/Breast: Denies: rash or pruritus Neuro: Denies: vertigo or confusion PFSH ED PFSH: Medical History (Updated 06/09/21 @ 09:40 by Clayton Ricci DO) COPD (chronic obstructive pulmonary disease) Diabetes HTN (hypertension) Necrotizing fasciitis of shoulder region Social History Smoking and tobacco status: former smoker Alcohol intake: never Physical Exam Const: COMMON NORMALS: no acute distress GENERAL APPEARANCE: cooperative and comfortable ORIENTATION/CONSCIOUSNESS: Yes awake HENMT: COMMON NORMALS: normocephalic, atraumatic, hearing grossly normal bila terally, external ears normal, EAC's normal, TM's normal bilaterally, Normal nasal mucous membranes and turbinates present, moist oral mucous membranes and oropharynx normal HEAD & SCALP: normocephalic and atraumatic NOSE: Normal nasal mucous membranes and turbinates present EXTERNAL EAR: Yes external ears normal EXTERNAL AUDITORY CANAL: EAC's normal TYMPANIC MEMBRANE: TM's normal bilaterally Eye: COMMON NORMALS: Equal, round and reactive pupils present, EOMs intact bilaterally, conjunctivae normal and no scleral icterus CONJUNCTIVA: Yes conjunctivae normal PUPIL: Yes Equal, round and reactive pupils present Neck/C-Spine: COMMON NORMALS: full ROM, no lymphadenopathy, supple and no JVD Resp: COMMON NORMALS: normal respiratory effort, No retractions, No use of accessory muscles and clear to auscultation bilaterally AUSCULTATION: clear to auscultation bilaterally Cardio: COMMON NORMALS: no JVD, regular rate, regular rhythm and No murmurs present (Cardio) RATE: regular rate RHYTHM: regular rhythm GI: COMMON NORMALS: Soft to palpation and No hepatosplenomegaly present AUSCULTATION: Yes normoactive bowel sounds PALPATION: Yes Soft to palpation, No Tenderness to palpation present (GI), No Guarding due to palpation present (GI) and Yes No hepatosplenomegaly present Extremity: COMMON NORMALS: normal to inspection, capillary refill normal, no clubbing, cyanosis or edema, no calf tenderness and no pedal edema Skin: COMMON NORMALS: no rashes or lesions noted GENERAL SKIN EXAM: no rashes or lesions noted Course Vital Signs: Vital signs: Vital Signs Temperature 98.1 F 06/09/21 05:51 Pulse Rate 101 H 06/09/21 09:54 Respiratory Rate 24 H 06/09/21 10:00 Blood Pressure 180/95 06/09/21 09:54 Pulse Oximetry 91 06/09/21 09:54 MDM - Head Injury MDM Narrative: Medical decision making narrative: Patient is a very small subdural hematoma along the along the right falx measures 1 x [address] Madden she confirmed it is definitely present although it except seems very minor. Patient is on Lovenox for DVT prophylaxis confirmed this with the senior care and talking to Dr. Contreras's attending. Called neurosurgery on-call Dr. Sr at [facility]. He states in a case like this he would not likely admit the patient he would simply monitor them on an outpatient basis. He does not recommend transfer. He does recommend that we repeat the CT in 1 week unless there is a condition change then do it sooner. He states that we can continue the Lovenox if it is felt to be necessary he does not feel that a finding this small requires stopping the Lovenox. Called and discussed with Dr. Alonzo who is the patient's attending at the senior care he agrees with the plan and is willing to make the follow-up on the head CT. Discussed at length with the family the findings and recommendations. Offered the alternatives of transfer however they told him that Dr. Nazario did not feel he would likely keep the patient and would recommend outpatient follow-up. All this considered they are willing to have him go back to the senior care they actually prefer that course of action they do understand the risks. Discussed with the patient as well. He prefers not to be transferred. Follow-up as above. Discharge Plan Discharge Patient Disposition: Home Clinical Impression: Fall, Subdural hematoma caused by concussion Condition: Stable Prescriptions: New levofloxacin 500 mg tablet 500 mg PO DAILY 7 Days RF: 0 No Action atorvastatin 20 mg tablet 20 mg PO DAILY RF: 0 albuterol sulfate 2.5 mg /3 mL (0.083 %) solution for nebulization 2.5 mg inhalation Q4H PRN (Reason: Shortness Of Breath) RF: 0 spironolacton-hydrochlorothiaz 25-25 mg tablet 0.5 tab PO QAM RF: 0 sertraline 100 mg tablet 100 mg PO DAILY RF: 0 clonazepam 1 mg tablet 1 mg PO BEDTIME RF: 0 amlodipine 5 mg tablet 5 mg PO QAM RF: 0 levothyroxine 25 mcg tablet 25 mcg PO QAM RF: 0 gabapentin 800 mg tablet 800 mg PO BID RF: 0 trazodone 150 mg tablet 150 mg PO BEDTIME RF: 0 metformin 1,000 mg tablet 1,000 mg PO BID RF: 0 metoprolol tartrate 50 mg tablet 50 mg PO BID RF: 0 omeprazole 20 mg capsule,delayed release(DR/EC) 20 mg PO QAM RF: 0 lisinopril 5 mg tablet 5 mg PO DAILY RF: 0 Wixela Inhub 100-50 mcg/dose blister with device 1 ea INHALATION BID RF: 0 albuterol sulfate 90 mcg/actuation HFA aerosol inhaler 2 puff INHALATION Q4H PRN (Reason: Shortness Of Breath) RF: 0 Novolog Mix 70-30 U-100 Insuln 100 unit/mL (70-30) solution See Rx Instructions .ROUTE .COMPLEX RF: 0 ibuprofen 200 mg Tablet 800 mg PO Q8H PRN (Reason: Pain) RF: 0 Discharge Orders: Discharge ED (Routine); Ordered 06/09/21 Ordered By: Clayton Ricci Referrals: Luisa Oakley APN [Primary Care Provider] - Discharge Diet: Usual diet Discharge Activity: Limit activity as instructed Patient Instructions: Opioid Safety Activity Restrictions/Additional Instructions: Discharge back to the senior care follow-up with Dr. Contreras within the next week for repeat head CT continue Lovenox per the recommendation of neurosurgery. Coding Level of Care Code ED Equipment Maintenance Supervisor for Josh Fwjennifer Exam Comprehensive
--- NOTE | 2021-06-09 05:50 | XRR_ITS ---
PROCEDURE INFORMATION: Exam: XR Right Shoulder Exam date and time: 06/09/2021 5:50 AM Age: 65 years old Clinical indication: Injury or trauma; Fall; Blunt trauma (contusions or hematomas); Right; Injury date: ; Injury details: Fell today pain to sholder; Prior surgery; Surgery date: 6+ months; Surgery type: RT shoulder surg x 7 TECHNIQUE: Imaging protocol: XR Right shoulder. Views: 2 or more views. COMPARISON: CR XR shoulder RT min 2V* [id number] 03/23/2021 1:46 PM FINDINGS: Bones/joints: Normal. Soft tissues: Normal. XR/XR shoulder RT min 2V* [id number] IMPRESSION: No acute findings.
[2021-06-09 05:51] VITALS: BP 159/95; PULSE 111; RESP 20; TEMP 36.7; O2SAT 95; BMI 36.5
[2021-06-09 05:57] VITALS: BP 159/95; PULSE 107; RESP 18; O2SAT 97
--- NOTE | 2021-06-09 07:17 | PC.NURSE ---
PT PLACED ON BED HERNANDEZ PER PT REQUEST. PT IS IN NAD.
[2021-06-09 07:30] VITALS: PULSE 106; RESP 28; O2SAT 90
[2021-06-09 08:30] VITALS: PULSE 105; RESP 28; O2SAT 91
--- NOTE | 2021-06-09 09:45 | PC.NURSE ---
REPORT GIVEN TO LEE BERNSTEIN AT [facility].
[2021-06-09 09:54] VITALS: BP 180/95; PULSE 101; RESP 30; O2SAT 91
--- NOTE | 2021-06-09 09:55 | PC.NURSE ---
INFORMED DR. HCIN OF RR OF 30/MIN VERBAL ORDER TO ORDER CXR 1 VIEW STAT.
--- NOTE | 2021-06-09 09:57 | XR_ITS ---
WS: [id number] Portable AP upright chest, 06/09/2021 Clinical Data: COUGH Comparison: Portable chest, 03/23/2021. Findings: The heart is enlarged. There is opacification in the left lower lobe which may represent at electasis, consolidation and/or effusion. The right lung is clear. The aortic arch shows mild tortuos ity. No pneumothorax is seen. XR/XR chest 1V portable [id number] Impression: 1 cardiomegaly. 2. Left lower lobe opacification which may represent atelectasis, effusion and/ or consolidation.
[2021-06-09 10:00] VITALS: RESP 24
--- NOTE | 2021-06-09 10:40 | PC.NURSE ---
REPORT GIVEN TO [facility]. PT IS ASSISTED ON AND OFF OF BED HERNANDEZ. PT IS IN NAD.
== END 2021-06-09 10:43 | disposition home or self-care (01) ==
PROVIDERS: Emergency Provider Family Medicine; PCP Nurse Practitioner
DX: S06.5X9A Traumatic subdural hemorrhage with loss of consciousness of unspecified duration, initial encounter (principal); Z79.4 Long term (current) use of insulin; Z79.84 Long term (current) use of oral hypoglycemic drugs; J44.9 Chronic obstructive pulmonary disease, unspecified; E11.9 Type 2 diabetes mellitus without complications; I10 Essential (primary) hypertension; Z87.891 Personal history of nicotine dependence; W06.XXXA Fall from bed, initial encounter; Y92.129 Unspecified place in nursing home as the place of occurrence of the external cause
CPT/HCPCS: 70450; 71045; 72125; 73030; 99283

== ENCOUNTER 2021-06-19 10:59 | Outpatient (CLI) | payer MEDICARE, SELFPAY ==
--- NOTE | 2021-06-19 11:11 | CT_ITS ---
WS: [id number] CT HEAD NONCONTRAST HISTORY: HEMATOMA/FALL TECHNIQUE: Contiguous axial imaging performed through the brain in 2.5 mm imaging. Bone and soft tiss ue windows. Sagittal and coronal reformats reviewed. All CT scans at [facility] use at least one of these dose optimization techniques: automated exposure control; mA and/or kV adjustment per pa tient size (includes targeted exams where dose is matched to clinical indication); or iterative recon struction. DLP: 1090.96 mGy.cm COMPARISON: 06/09/2021 and 03/23/2021 Focal area of increased density along the posterior RIGHT falx has resolved. No new or progression of suspected hematoma or extra-axial blood. There is no midline shift. Mild atrophy and chronic ischemic disease. Ventricles: Normal size with no hydrocephalus. Paranasal sinuses: As visualized are clear. Mastoid air cells: Well pneumatized. Calvarium and scalp: Resolving soft tissue injury over the frontal bone. CT/CT head wo con* [id number] IMPRESSION: 1. Resolution of the previously described RIGHT posterior falx subdural hemato ma. No new blood products or increasing blood products. 2. Mild atrophy and mild chronic microvascular ischemic disease is stable.
[2021-06-19 20:36] LABS: Glucose Point of Care 291 mg/dL (70-110)
== END 2021-06-19 11:00 | disposition home or self-care (01) ==
LOC: RAD 11:02
PROVIDERS: PCP Nurse Practitioner; Visit Provider Nurse Practitioner Family
DX: S00.93XA Contusion of unspecified part of head, initial encounter (principal); W19.XXXA Unspecified fall, initial encounter; G31.9 Degenerative disease of nervous system, unspecified; I67.82 Cerebral ischemia
CPT/HCPCS: 36416; 70450; 82962

== ENCOUNTER 2021-06-19 14:15 | Emergency (ER) | payer MEDICARE, SELFPAY ==
[2021-06-19 14:46] VITALS: BP 115/72; PULSE 108; RESP 16; TEMP 36.6; O2SAT 96
[2021-06-19 18:51] VITALS: BP 145/71; RESP 24; O2SAT 94
--- NOTE | 2021-06-19 19:30 | ED_ITS ---
Documented by User: Maur Ford MD 06/19/21 20:40 HPI - General Adult General: Chief complaint: Wound/Laceration Stated complaint: REDNESS SWELLING, R UPPER ARM Time Seen by Provider: 06/19/21 18:55 History of Present Illness: HPI narrative: Patient is a 65-year-old male with history of necrotizing fasciitis, diabetes, COPD on 3 L oxygen from [facility] presenting to the emergency room with worsening right arm swelling. Patient had previous fasciotomy performed on the right humerus. Since then, patient has been doing well up until 3 weeks ago when he noticed redness and swelling in the same area. Patient says that over the last 3 days the swelling and redness has progressively gotten worse. Patient denies any fever or chills, or active pain. Patient has been on multiple antibiotics without any resolution of symptoms. Most recently, patient was started on Bactrim this morning. He has no other focal complaints including chest pain shortness of breath, palpitation lightheadedness, abdominal pain, nausea/vomiting, diarrhea melena hematochezia. Onset: 3 weeks ago Duration: 3 weeks Location:home Severity:moderate Associated symptoms: Reports rash; Deny chest pain, dyspnea, nausea, palpitations or vomiting Review of Systems Const: Denies: fever(s) or chills Eyes: Denies: change in vision ENMT: Denies: mouth pain Card: Denies: chest pain or palpitations Resp: Denies: dyspnea or non-productive cough GI: Denies: abdominal pain, nausea, vomiting or diarrhea : Denies: dysuria Musc: Denies: extremity pain Skin/Breast: Reports: rash and new lesions (+R arm swelling and redness) Neuro: Denies: weakness in extremities Psych: Reports: other (Normal mood) Keshav/Lymph: Denies: easy bruising PFSH ED PFSH: Medical History COPD (chronic obstructive pulmonary disease) Diabetes HTN (hypertension) Necrotizing fasciitis of shoulder region Social History Smoking and tobacco status: former smoker Alcohol intake: never Physical Exam Const: COMMON NORMALS: alert HENMT: COMMON NORMALS: atraumatic HEAD & SCALP: atraumatic MOUTH: moist mucous membranes not abnormal Eye: COMMON NORMALS: EOMs intact bilaterally and conjunctivae normal CONJUNCTIVA: Yes conjunctivae normal Neck/C-Spine: COMMON NORMALS: full ROM and supple Resp: COMMON NORMALS: normal respiratory effort and clear to auscultation bilaterally AUSCULTATION: clear to auscultation bilaterally Cardio: RATE: tachycardic GI: COMMON NORMALS: Soft to palpation and non-tender PALPATION: Yes Soft to palpation Extremity: COMMON NORMALS: full ROM NARRATIVE EXTREMITY EXAM: + Right medial erythema along the humerus, no palpable tenderness to palpation, no fluctuance, +mild warmth on the affected area, old fasciotomy scar in place, no tense compartment on the affected side, 2+ radial pulse on the R side, sensations and strength intactin the R arm. Neuro: SENSORIUM/ORIENTATION: Yes alert MOTOR EXAM: No Abnormal motor stren gth present and Other motor observations present (no focal motor deficits) Psych: COMMON NORMALS: speech normal SPEECH: Yes normal speech MOOD & AFFECT: Yes euthymic mood Course Vital Signs: Vital signs: Vital Signs Temperature 97.8 F 06/19/21 14:46 Pulse Rate 108 H 06/19/21 14:46 Respiratory Rate 16 06/19/21 14:46 Blood Pressure 115/72 06/19/21 14:46 Pulse Oximetry 96 06/19/21 14:46 MDM - General Adult MDM Narrative: Medical decision making narrative: 65-year-old male with history of diabetes, prior history of necrotizing fasciitis presenting to the emergency room with complaints of right inner arm erythema that has acutely expanded in the last 3 days. On exam: Patient has erythema and mild warmth to palpation on the R inner arm. +mildly tachycardiac on arrival that improved without IVF. No findings of pain out of porportion. Patient will have white count 6.2. Given failure of outpatient antibiotic treatment, patient started on vancomycin and Unasyn. Blood culture pending. For shared decision making with patient who elects to go home at this time as opposed to getting admitted to the hospital. Patient has a lactic acid of 2.6 initially, pending repeat lactic acid. White count of 6.2. Since patient just recently started on the Bactrim, he will continue taking Bactrim with Augmentin. Patient also has an appointment with the wound care clinic. Rx bactrim DS BID x 10 days and augmentin BID x 10 days I have given patient follow up with our employment case manager to be seen by our outpatient wound care clinic. Patient aware of a call from our employment case manager to rosalio henry for appointment(s) and verbalizes understanding of the importance of following up. Case signed out to Dr. Tobias pending repeat lactic acid after IVF Lab Data: Labs: Lab Results 06/19/21 06/19/21 06/19/21 19:15 19:15 19:28 WBC 6.2 10^3/uL 10^3/ uL (4.0-10.0) RBC 3.53 10^6/uL L 10 ^6/uL (4.1-5.3) Hgb 9.6 g/dL L g/dL (11.7-16.6) Hct 30.2 % L % (42.0-52.0) MCV 85.6 fl fl (80-94) MCH 27.2 pg L pg (28.0-34.0) MCHC 31.8 g/dL g/dL (30.0-36.0) RDW 14.6 % % (12.1-15.1) Plt Count 249 10^3/cmm 10^3 /cmm (130-400) MPV 10.8 fL H fL (7.4-10.4) Neut % (Auto) 56.4 % % Lymph % (Auto) 30.4 % % [place] % (Auto) 11.1 % % Eos % (Auto) 1.3 % % Baso % (Auto) 0.5 % % Neut # (Auto) 3.51 10^3/uL 10^3 /uL (1.8-7.7) Lymph # (Auto) 1.9 10^3/uL 10^3/ uL (0.8-4.8) [place] # (Auto) 0.7 10^3/uL 10^3/ uL (0.2-0.9) Eos # (Auto) 0.1 10^3/uL 10^3/ uL (0.0-0.8) Baso # (Auto) 0.0 10^3/uL 10^3/ uL (0.0-0.1) Nucleated RBC % (a uto) 0 % % Nucleated RBCs # 0.0 /100WBC /100W BC Sodium Cancelled Potassium Cancelled Chloride Cancelled Carbon Dioxide Cancelled Anion Gap Cancelled BUN Cancelled Creatinine Cancelled GFR Calculation Cancelled Glucose Cancelled Calculated Osmolal ity Cancelled Lactic Acid 2.6 mmol/L H mmol /L (0.5-2.2) Lactic Acid (Sepsi s) Calcium Cancelled Total Bilirubin Cancelled AST Cancelled ALT Cancelled Alkaline Phosphata se Cancelled C-Reactive Protein Cancelled Total Protein Cancelled Albumin Cancelled Globulin Cancelled Procalcitonin Cancelled 06/19/21 06/19/21 20:08 22:30 WBC RBC Hgb Hct MCV MCH MCHC RDW Plt Count MPV Neut % (Auto) Lymph % (Auto) [place] % (Auto) Eos % (Auto) Baso % (Auto) Neut # (Auto) Lymph # (Auto) [place] # (Auto) Eos # (Auto) Baso # (Auto) Nucleated RBC % (a uto) Nucleated RBCs # Sodium 134 mmol/L L mmol /L (136-145) Potassium 4.6 mmol/L mmol/L (3.5-5.1) Chloride 95 mmol/L L mmol/ L (98-107) Carbon Dioxide 31 mmol/L H mmol/ L (22-29) Anion Gap 12.6 (5-19) BUN 13 mg/dL mg/dL (8-23) Creatinine 0.9 mg/dL mg/dL (0.7-1.2) GFR Calculation 84.7 mL/min L mL/ min (90-130) Glucose 264 mg/dL H mg/dL (65-115) Calculated Osmolal ity 287 mOsm/kg mOsm/ kg (285-295) Lactic Acid Lactic Acid (Sepsi s) 1.3 mmol/L mmol/L (0.5-2.2) Calcium 7.9 mg/dL L mg/dL (8.5-10.5) Total Bilirubin 0.2 mg/dL mg/dL (0.15-1.2) AST 36 U/L U/L (0-40) ALT 21 U/L U/L (0-41) Alkaline Phosphata se 217 IU/L H IU/L (40-130) C-Reactive Protein 29.4 mg/L H mg/L (0.0-4.9) Total Protein 6.7 g/dL g/dL (6.6-8.7) Albumin 2.6 g/dL L g/dL (3.5-5.2) Globulin 4.1 g/dL g/dL (1.3-4.6) Procalcitonin 0.10 ng/mL ng/mL (0-0.5) Discharge Plan Discharge Patient Disposition: Home Clinical Impression: Cellulitis of arm, right, Diabetes Condition: Stable Prescriptions: New Augmentin 875-125 mg tablet 1 tab PO BID 10 Days Qty: 20 RF: 0 Bactrim DS 800-160 mg tablet 1 tab PO BID 10 Days Qty: 20 RF: 0 Discontinued sertraline 100 mg tablet 100 mg PO DAILY@0800 RF: 0 sulfamethoxazole-trimethoprim [Bactrim DS] 800-160 mg Tablet 1 tab PO BID RF: 0 No Action amlodipine 5 mg tablet 5 mg PO DAILY@0800 RF: 0 levothyroxine 25 mcg tablet 25 mcg PO DAILY@0600 RF: 0 lisinopril 5 mg tablet 5 mg PO DAILY@0800 RF: 0 acetaminophen 325 mg Tablet 650 mg PO Q6H PRN (Reason: Pain) RF: 0 ipratropium-albuterol 0.5 mg-3 mg(2.5 mg base)/3 mL Solution For Nebulization 3 ml INHALATION Q6H PRN (Reason: Shortness Of Breath) RF: 0 fluconazole 200 mg Tablet 400 mg PO DAILY@0800 RF: 0 tamsulosin 0.4 mg Capsule 0.4 mg PO DAILY@0900 RF: 0 cephalexin 500 mg Capsule 500 mg PO Q6H RF: 0 gabapentin 300 mg Capsule 300 mg PO BID@,20 RF: 0 mirtazapine 15 mg Tablet 15 mg PO BEDTIME RF: 0 Maalox 200-200-20 mg/5 mL Suspension 30 ml PO Q4H PRN (Reason: Heartburn) RF: 0 insulin lispro 100 unit/mL Solution See Rx Instructions .ROUTE .COMPLEX RF: 0 Lantus Solostar U-100 Insulin 100 unit/mL (3 mL) Insulin Pen 50 unit SUBCUT BID@,20 RF: 0 melatonin 5 mg Tablet 5 mg PO BEDTIME PRN (Reason: Sleep) RF: 0 Belle-Bid 1 billion cell- 250 mg Tablet 2 tab PO BID@,20 RF: 0 Discharge Orders: Discharge ED (Routine); Ordered 06/19/21 Ordered By: Ronaldo Tobias Referrals: Rachel Blils MD [Primary Care Provider] - Discharge Diet: Advance as tolerated Discharge Activity: Increase activity as tolerated Patient Instructions: Cellulitis (ED) Activity Restrictions/Additional Instructions: Come back to the emergency room if your infection worsens, if you have fever or chills, worsening redness, pain, or any new or concerning complaints. Coding Level of Care Code ED Steam Shovel Operator for Chg Fwd Exam Comprehensive Documented by User: Ronaldo Tobias MD 06/19/21 23:52 HPI - General Adult General: Chief complaint: Wound/Laceration Stated complaint: REDNESS SWELLING, R UPPER ARM Time Seen by Provider: 06/19/21 18:55 PFSH ED PFSH: Medical History COPD (chronic obstructive pulmonary disease) Diabetes HTN (hypertension) Necrotizing fasciitis of shoulder region Social History Smoking and tobacco status: former smoker Alcohol intake: never Course Vital Signs: Vital signs: Vital Signs Temperature 97.8 F 06/19/21 14:46 Pulse Rate 108 H 06/19/21 14:46 Respiratory Rate 16 06/19/21 14:46 Blood Pressure 115/72 06/19/21 14:46 Pulse Oximetry 96 06/19/21 14:46 MDM - General Adult MDM Narrative: Medical decision making narrative: Patient's lactate improved he feels improved would like to go home feel he is stable for discharge to follow-up PCP and return if worsening. Lab Data: Labs: Lab Results 06/19/21 06/19/21 06/19/21 19:15 19:15 19:28 WBC 6.2 10^3/uL 10^3/ uL (4.0-10.0) RBC 3.53 10^6/uL L 10 ^6/uL (4.1-5.3) Hgb 9.6 g/dL L g/dL (11.7-16.6) Hct 30.2 % L % (42.0-52.0) MCV 85.6 fl fl (80-94) MCH 27.2 pg L pg (28.0-34.0) MCHC 31.8 g/dL g/dL (30.0-36.0) RDW 14.6 % % (12.1-15.1) Plt Count 249 10^3/cmm 10^3 /cmm (130-400) MPV 10.8 fL H fL (7.4-10.4) Neut % (Auto) 56.4 % % Lymph % (Auto) 30.4 % % [place] % (Auto) 11.1 % % Eos % (Auto) 1.3 % % Baso % (Auto) 0.5 % % Neut # (Auto) 3.51 10^3/uL 10^3 /uL (1.8-7.7) Lymph # (Auto) 1.9 10^3/uL 10^3/ uL (0.8-4.8) [place] # (Auto) 0.7 10^3/uL 10^3/ uL (0.2-0.9) Eos # (Auto) 0.1 10^3/uL 10^3/ uL (0.0-0.8) Baso # (Auto) 0.0 10^3/uL 10^3/ uL (0.0-0.1) Nucleated RBC % (a uto) 0 % % Nucleated RBCs # 0.0 /100WBC /100W BC Sodium Cancelled Potassium Cancelled Chloride Cancelled Carbon Dioxide Cancelled Anion Gap Cancelled BUN Cancelled Creatinine Cancelled GFR Calculation Cancelled Glucose Cancelled Calculated Osmolal ity Cancelled Lactic Acid 2.6 mmol/L H mmol /L (0.5-2.2) Lactic Acid (Sepsi s) Calcium Cancelled Total Bilirubin Cancelled AST Cancelled ALT Cancelled Alkaline Phosphata se Cancelled C-Reactive Protein Cancelled Total Protein Cancelled Albumin Cancelled Globulin Cancelled Procalcitonin Cancelled 06/19/21 06/19/21 20:08 22:30 WBC RBC Hgb Hct MCV MCH MCHC RDW Plt Count MPV Neut % (Auto) Lymph % (Auto) [place] % (Auto) Eos % (Auto) Baso % (Auto) Neut # (Auto) Lymph # (Auto) [place] # (Auto) Eos # (Auto) Baso # (Auto) Nucleated RBC % (a uto) Nucleated RBCs # Sodium 134 mmol/L L mmol /L (136-145) Potassium 4.6 mmol/L mmol/L (3.5-5.1) Chloride 95 mmol/L L mmol/ L (98-107) Carbon Dioxide 31 mmol/L H mmol/ L (22-29) Anion Gap 12.6 (5-19) BUN 13 mg/dL mg/dL (8-23) Creatinine 0.9 mg/dL mg/dL (0.7-1.2) GFR Calculation 84.7 mL/min L mL/ min (90-130) Glucose 264 mg/dL H mg/dL (65-115) Calculated Osmolal ity 287 mOsm/kg mOsm/ kg (285-295) Lactic Acid Lactic Acid (Sepsi s) 1.3 mmol/L mmol/L (0.5-2.2) Calcium 7.9 mg/dL L mg/dL (8.5-10.5) Total Bilirubin 0.2 mg/dL mg/dL (0.15-1.2) AST 36 U/L U/L (0-40) ALT 21 U/L U/L (0-41) Alkaline Phosphata se 217 IU/L H IU/L (40-130) C-Reactive Protein 29.4 mg/L H mg/L (0.0-4.9) Total Protein 6.7 g/dL g/dL (6.6-8.7) Albumin 2.6 g/dL L g/dL (3.5-5.2) Globulin 4.1 g/dL g/dL (1.3-4.6) Procalcitonin 0.10 ng/mL ng/mL (0-0.5) Discharge Plan Discharge Patient Disposition: Home Clinical Impression: Cellulitis of arm, right, Diabetes Condition: Stable Prescriptions: New Augmentin 875-125 mg tablet 1 tab PO BID 10 Days Qty: 20 RF: 0 Bactrim DS 800-160 mg tablet 1 tab PO BID 10 Days Qty: 20 RF: 0 Discontinued sertraline 100 mg tablet 100 mg PO DAILY@0800 RF: 0 sulfamethoxazole-trimethoprim [Bactrim DS] 800-160 mg Tablet 1 tab PO BID RF: 0 No Action amlodipine 5 mg tablet 5 mg PO DAILY@0800 RF: 0 levothyroxine 25 mcg tablet 25 mcg PO DAILY@0600 RF: 0 lisinopril 5 mg tablet 5 mg PO DAILY@0800 RF: 0 acetaminophen 325 mg Tablet 650 mg PO Q6H PRN (Reason: Pain) RF: 0 ipratropium-albuterol 0.5 mg-3 mg(2.5 mg base)/3 mL Solution For Nebulization 3 ml INHALATION Q6H PRN (Reason: Shortness Of Breath) RF: 0 fluconazole 200 mg Tablet 400 mg PO DAILY@0800 RF: 0 tamsulosin 0.4 mg Capsule 0.4 mg PO DAILY@0900 RF: 0 cephalexin 500 mg Capsule 500 mg PO Q6H RF: 0 gabapentin 300 mg Capsule 300 mg PO BID@08,20 RF: 0 mirtazapine 15 mg Tablet 15 mg PO BEDTIME RF: 0 Maalox 200-200-20 mg/5 mL Suspension 30 ml PO Q4H PRN (Reason: Heartburn) RF: 0 insulin lispro 100 unit/mL Solution See Rx Instructions .ROUTE .COMPLEX RF: 0 Lantus Solostar U-100 Insulin 100 unit/mL (3 mL) Insulin Pen 50 unit SUBCUT BID@07,20 RF: 0 melatonin 5 mg Tablet 5 mg PO BEDTIME PRN (Reason: Sleep) RF: 0 Belle-Bid 1 billion cell- 250 mg Tablet 2 tab PO BID@08,20 RF: 0 Discharge Orders: Discharge ED (Routine); Ordered 06/19/21 Ordered By: Ronaldo Tobias Referrals: Rachel Bills MD [Primary Care Provider] - Discharge Diet: Advance as tolerated Discharge Activity: Increase activity as tolerated Patient Instructions: Cellulitis (ED) Activity Restrictions/Additional Instructions: Come back to the emergency room if your infection worsens, if you have fever or chills, worsening redness, pain, or any new or concerning complaints. Coding Level of Care Code ED Steam Shovel Operator for Josh Fwjennifer Exam Comprehensive
[2021-06-19 19:40] LABS: Basophils % 0.5 %; Eosinophils # 0.1 10^3/uL (0.0-0.8); Eosinophils % 1.3 %; Hematocrit 30.2 % (42.0-52.0); Hemoglobin 9.6 g/dL (11.7-16.6); Lymphocytes # 1.9 10^3/uL (0.8-4.8); Lymphocytes % 30.4 %; Mean Corpuscular HGB Conc 31.8 g/dL (30.0-36.0); Mean Corpuscular Hemoglobin 27.2 pg (28.0-34.0); Mean Corpuscular Volume 85.6 fl (80-94); Mean Platelet Volume 10.8 fL (7.4-10.4); Monocytes # 0.7 10^3/uL (0.2-0.9); Monocytes % 11.1 %; Neutrophils # 3.51 10^3/uL (1.8-7.7); Neutrophils % 56.4 %; Nucleated Red Blood Cells % 0 %; Platelet Count 249 10^3/cmm (130-400); Red Blood Count 3.53 10^6/uL (4.1-5.3); Red Cell Distribution Width 14.6 % (12.1-15.1); White Blood Count 6.2 10^3/uL (4.0-10.0)
[2021-06-19 20:15] LABS: Lactic Sepsis W/Reflex 2.6 mmol/L (0.5-2.2)
[2021-06-19] MEDS: ampicillin-sulbactam 3 GM in sodium chloride 0.9% (plus) 50 ML IV (20:33)
[2021-06-19 20:44] LABS: Alanine Aminotransferase 21 U/L (0-41); Albumin Level 2.6 g/dL (3.5-5.2); Alkaline Phosphatase 217 IU/L (40-130); Blood Urea Nitrogen 13 mg/dL (8-23); C Reactive Protein 29.4 mg/L (0.0-4.9); Calcium 7.9 mg/dL (8.5-10.5); Carbon Dioxide 31 mmol/L (22-29); Chloride 95 mmol/L (98-107); Globulin 4.1 g/dL (1.3-4.6); Glomerular Filtration Rate 84.7 mL/min (90-130); Glucose 264 mg/dL (65-115); Osmolality Calculated 287 mOsm/kg (285-295); Sodium 134 mmol/L (136-145); Total Bilirubin 0.2 mg/dL (0.15-1.2); Total Protein 6.7 g/dL (6.6-8.7)
[2021-06-19 20:45] LABS: Anion Gap 12.6 (5-19); Aspartate Amino Transferase 36 U/L (0-40); Potassium 4.6 mmol/L (3.5-5.1)
[2021-06-19 20:51] VITALS: BP 154/92; RESP 18; O2SAT 96
[2021-06-19] MEDS: sodium chloride 0.9% 1,000 ML 999 ML IV (21:15)
[2021-06-19] MEDS: vancomycin 1,000 MG in sodium chloride 0.9% 250 ML 250 MG IV (21:19)
[2021-06-19 21:43] LABS: Reflex Lactate Order REFLEX LACTIC ORDERD
[2021-06-19 23:04] LABS: Lactic Acid level (Lactate) 1.3 mmol/L (0.5-2.2)
[2021-06-19 23:21] VITALS: BP 182/82; RESP 18; O2SAT 95
[2021-06-20 00:46] VITALS: BP 182/82; RESP 18; O2SAT 95
== END 2021-06-20 00:20 | disposition home or self-care (01) ==
PROVIDERS: Emergency Medicine; Nurse Practitioner Family; Emergency Provider Emergency Medicine; PCP Family Medicine
DX: L03.113 Cellulitis of right upper limb (principal); E11.9 Type 2 diabetes mellitus without complications; Z79.4 Long term (current) use of insulin; J44.9 Chronic obstructive pulmonary disease, unspecified; I10 Essential (primary) hypertension; Z87.891 Personal history of nicotine dependence
CPT/HCPCS: 80053; 83605; 84145; 85025; 86140; 87040; 96365; 96367; 99284; J0295; J3370; J7030; J7050

== ENCOUNTER 2021-08-06 20:20 | Inpatient (IN) | payer MEDICARE, SELFPAY ==
[2021-08-06] VITALS (7 sets, daily range): BP systolic 147–163; BP diastolic 65–97; PULSE 116–134; RESP 18–35; TEMP 37; O2SAT 97–100; BMI 39.5
--- NOTE | 2021-08-06 20:34 | XRR_ITS ---
PROCEDURE INFORMATION: Exam: XR Chest Exam date and time: 08/06/2021 8:34 PM Age: 66 years old Clinical indication: Dyspnea; Additional info: SOB TECHNIQUE: Imaging protocol: XR of the chest. Views: 1 view. COMPARISON: CR XR chest 1V portable [id number] 06/09/2021 10:04 AM FINDINGS: Lungs: A shallow breath is been obtained with crowding of the pulmonary vasculature seen as result. There increased peribronchial markings and increased strandy opacities present in the mid lower hemithoraces, findings that may represent bronchitis and atelectasis although a bilateral basilar pneumonitis cannot be excluded. Pleural spaces: Unremarkable. No pleural effusion. No pneumothorax. Heart/Mediastinum: Unremarkable. No cardiomegaly. Bones/joints: Unremarkable. XR/XR chest 1V portable [id number] IMPRESSION: Probable bilateral bronchitis and basilar atelectasis although a bilateral basilar pneumonitis cannot be excluded.
--- NOTE | 2021-08-06 20:35 | ECG_ITS ---
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 Measurements Intervals [place] Rate: 128 P: [place]: QRS: 23 QRSD: 94 T: 72 QT: 290 QTc: 424 Interpretive Statements ATRIAL FIBRILLATION WITH RAPID VENTRICULAR RESPONSE ANTEROSEPTAL MYOCARDIAL INFARCTION , OF INDETERMINATE AGE WARNING: DATA QUALITY MAY AFFECT INTERPRETATION Compared to ECG 03/23/2021 17:02:09 Myocardial infarct finding now present Sinus rhythm no longer present Intraventricular conduction delay no longer present T-wave abnormality no longer present Electronically Signed On 08-07-2021 16:11:38 RAG INSPECTOR by Melania Massey M.D. [email or web address]
[2021-08-06 20:48] LABS: ABG PH Result 7.41 (7.35-7.45); Arterial Blood Gas Hematocrit 27.7 % (42-52); Base Excess ABG 6.7 mmol/L (-2.0-2.0); Blood Gas Allen Test Pos; Blood Gas Sample Site Radial, left; Blood Gas Sample Type Arterial; HCO3 ABG 32.3 mmol/L (22-26); Oxygen Device NRB
[2021-08-06 20:50] LABS: Basophils % 0.3 %; Eosinophils # 0.1 10^3/uL (0.0-0.8); Eosinophils % 1.9 %; Hematocrit 30.2 % (42.0-52.0); Hemoglobin 8.7 g/dL (11.7-16.6); Lymphocytes # 1.6 10^3/uL (0.8-4.8); Lymphocytes % 20.9 %; Mean Corpuscular HGB Conc 28.8 g/dL (30.0-36.0); Mean Corpuscular Hemoglobin 24.6 pg (28.0-34.0); Mean Corpuscular Volume 85.6 fl (80-94); Mean Platelet Volume 9.9 fL (7.4-10.4); Monocytes # 0.8 10^3/uL (0.2-0.9); Monocytes % 10.1 %; Neutrophils # 4.99 10^3/uL (1.8-7.7); Neutrophils % 66.4 %; Nucleated Red Blood Cells % 0 %; Platelet Count 239 10^3/cmm (130-400); Red Blood Count 3.53 10^6/uL (4.1-5.3); Red Cell Distribution Width 14.3 % (12.1-15.1); White Blood Count 7.5 10^3/uL (4.0-10.0)
[2021-08-06] MEDS: FUROsemide 10 mg/mL SDV 10mL 80 MG IVP (21:01)
[2021-08-06 21:10] LABS: Lactic Sepsis W/Reflex 1.4 mmol/L (0.5-2.2)
[2021-08-06 21:15] LABS: D Dimer 1.86 ug/mIFEU (0-0.59); Troponin(5th) Baseline 42 ng/L (0-15)
--- NOTE | 2021-08-06 21:21 | ED_ITS ---
HPI - SOB/Dyspnea General: Chief Complaint: Shortness of Breath/Dyspnea Stated Complaint: diff breathing Time Seen by Provider: 08/06/21 20:23 Source: patient and EMS Mode of arrival: EMS History of Present Illness: HPI Narrative: 66-year-old male senior care patient, BiPAP dependent. He has a history of COPD and CHF. He presents with progressive shortness of breath for the past day or so. He denies fever or significant cough. He does note some swelling. He is alert and talking, on BiPAP on arrival. correction reported that they could not keep his oxygen saturation up on the BiPAP there. MD elicited complaint: shortness of breath Pertinent past history: COPD and congestive heart failure Onset (ago): hour(s) Timing: constant and progressively worsening Severity: severe Exacerbating factors: movement Relieving factors: nothing Known history of: COPD and congestive heart failure Associated symptoms: Reports chest congestion; Deny abdominal pain, chest pain, cough, fever(s), nausea or vomiting Treatment prior to arrival: oxygen and NIPPV Review of Systems Const: Denies: fever(s) ENMT: Denies: throat pain Card: Denies: chest pain Resp: Reports: dyspnea and chest congestion; Denies: productive cough or non-productive cough GI: Denies: abdominal pain, nausea or vomiting Skin/Breast: Denies: rash Neuro: Denies: confusion PFSH ED PFSH: Medical History COPD (chronic obstructive pulmonary disease) Diabetes HTN (hypertension) Necrotizing fasciitis of shoulder region Social History Smoking and tobacco status: former smoker Alcohol intake: never Physical Exam Const: GENERAL APPEARANCE: cooperative and ill appearing ORIENTA TION/CONSCIOUSNESS: Yes awake, Yes oriented to person, Yes oriented to place and Yes oriented to time HENMT: COMMON NORMALS: normocephalic, atraumatic and Normal external nose present HEAD & SCALP: normocephalic and atraumatic FACE & SINUS: normal facial exam NOSE: Normal external nose present Eye: COMMON NORMALS: Equal, round and reactive pupils present and EOMs intact bilaterally PUPIL: Yes Equal, round and reactive pupils present Neck/C-Spine: COMMON NORMALS: full ROM Chest: COMMONS NORMALS: normal inspection of the chest Resp: EFFORT & INSPECTION: Yes labored and Yes uses accessory muscles AUSCULTATION: rales and rhonchi Cardio: COMMON NORMALS: regular rate and regular rhythm RATE: regular rate RHYTHM: regular rhythm GI: COMMON NORMALS: Normal to inspection, nondistended, normoactive bowel sounds present, Soft to palpation and non-tender PALPATION: Yes Soft to palpation : COMMON NORMALS: Yes no CVA tenderness BLADDER/KIDNEY EXAM: Yes no CVA tenderness Back/Pelvis: COMMON NORMALS: no CVA tenderness Extremity: GENERAL: Yes edema (2+) Neuro: CONNOR COMA SCALE: document GCS findings Connor coma scale eye opening: Spontaneous Connor coma scale verbal response: Orientated Connor coma scale motor response: Obey commands Connor coma scale total score: 15 SENSORIUM/ORIENTATION: Yes oriented to person, Yes oriented to place and Yes oriented to time Psych: COMMON NORMALS: cooperative Course Consultations: Consultation #1: javier Time: 23:41 Vital Signs: Vital signs: Vital Signs Temperature 98.6 F 08/06/21 20:23 Pulse Rate 134 H 08/06/21 21:39 Respiratory Rate 24 H 08/06/21 21:38 Blood Pressure 163/97 08/06/21 23:33 Pulse Oximetry 97 08/06/21 23:33 MDM - SOB/Dyspnea Medical Decision Making 66-year-old male presents in respiratory failure. Has responded well to BiPAP treatment here. He has had 80 mg of Lasix, Solu-Medrol, and DuoNeb treatments. Chest x-ray bilateral lower lobe atelectasis versus pneumonitis. CTA of the chest shows no PE, a possible left lung consolidation, and bilateral effusions. The patient was not given antibiotics, as he is afebrile, has no leukocytosis, and has not been coughing. His COVID-19 PCR is negative. He will be admitted for acute on chronic respiratory failure with hypoxia. His hemoglobin is 8.7 which is roughly stable for him. Lab Data : 08/06/21 20:37 08/06/21 20:37 Labs/Radiology: Radiology Impressions Chest X-Ray 08/06/21 20:34 IMPRESSION: Probable bilateral bronchitis and basilar atelectasis although a bilateral basilar pneumonitis cannot be excluded. Chest CTA 08/06/21 21:53 IMPRESSION: 1. There is no evidence for pulmonary emboli. 2. There are small bilateral pleural effusions. 3. Strandy opacities and consolidation is seen in the left lower lobe. Subtle ground-glass opacities are seen adjacent to the major fissure within the left upper lobe and minimal patchy and strandy opacities are seen in the right lung base. These findings may represent atelectasis although a infiltrate and pneumonia cannot be excluded within the left lower lobe. Laboratory Results WBC 7.5 10^3/uL (4.0-10.0) 08/06/21 20:37 RBC 3.53 10^6/uL (4.1-5.3) L 08/06/21 20:37 Hgb 8.7 g/dL (11.7-16.6) L 08/06/21 20: Hct 30.2 % (42.0-52.0) L 08/06/21 20:37 MCV 85.6 fl (80-94) 08/06/21 20: MCH 24.6 pg (28.0-34.0) L 08/06/21 20: MCHC 28.8 g/dL (30.0-36.0) L 08/06/21 20:37 RDW 14.3 % (12.1-15.1) 08/06/21 20:37 Plt Count 239 10^3/cmm (130-400) 08/06/21 20:37 MPV 9.9 fL (7.4-10.4) 08/06/21 20:37 Neut % (Auto) 66.4 % 08/06/21 20:37 Lymph % (Auto) 20.9 % 08/06/21 20:37 [place] % (Auto) 10.1 % 08/06/21 20:37 Eos % (Auto) 1.9 % 08/06/21 20:37 Baso % (Auto) 0.3 % 08/06/21 20:37 Neut # (Auto) 4.99 10^3/uL (1.8-7.7) 08/06/21 20:37 Lymph # (Auto) 1.6 10^3/uL (0.8-4.8) 08/06/21 20:37 [place] # (Auto) 0.8 10^3/uL (0.2-0.9) 08/06/21 20:37 Eos # (Auto) 0.1 10^3/uL (0.0-0.8) 08/06/21 20:37 Baso # (Auto) 0.0 10^3/uL (0.0-0.1) 08/06/21 20:37 Nucleated RBC % (auto) 0 % 08/06/21 20:37 Nucleated RBCs # 0.0 /100WBC 08/06/21 20:37 D-Dimer 1.86 ug/mIFEU (0-0.59) H 08/06/21 20:37 Specimen Type Arterial 08/06/21 20:35 Sample Site Radial, left 08/06/21 20:35 ABG pH 7.41 (7.35-7.45) 08/06/21 20:35 ABG pCO2 51.0 mmHg (35-45) H 08/06/21 20:35 ABG pO2 101.0 mmHg (80.0-100.0) H 08/06/21 20:35 ABG HCO3 32.3 mmol/L (22-26) H 08/06/21 20:35 ABG Base Excess 6.7 mmol/L (-2.0-2.0) H 08/06/21 20:35 Matthew Test Pos 08/06/21 20:35 Hematocrit 27.7 % (42-52) L 08/06/21 20:35 O2 Delivery Device Nrb 08/06/21 20:35 O2 Liters/Min 15.0 % 08/06/21 20:35 FiO2 100.0 % 08/06/21 20:35 Band Reamer Machine Operator ID Hensa 08/06/21 20:35 Sodium 134 mmol/L (136-145) L 08/06/21 20:37 Potassium 4.3 mmol/L (3.5-5.1) 08/06/21 20:37 Chloride 100 mmol/L (98-107) 08/06/21 20:37 Carbon Dioxide 27 mmol/L (22-29) 08/06/21 20:37 Anion Gap 11.3 (5-19) 08/06/21 20:37 BUN 14 mg/dL (8-23) 08/06/21 20:37 Creatinine 0.9 mg/dL (0.7-1.2) 08/06/21 20:37 GFR Calculation 84.4 mL/min (90-130) L 08/06/21 20:37 Glucose 157 mg/dL (65-115) H 08/06/21 20:37 Calculated Osmolality 282 mOsm/kg (285-295) L 08/06/21 20:37 Lactic Acid 1.4 mmol/L (0.5-2.2) 08/06/21 20:37 Calcium 8.8 mg/dL (8.5-10.5) 08/06/21 20:37 Total Bilirubin 0.2 mg/dL (0.15-1.2) 08/06/21 20:37 AST 21 U/L (0-40) 08/06/21 20:37 ALT 10 U/L (0-41) 08/06/21 20:37 Alkaline Phosphatase 204 IU/L (40-130) H 08/06/21 20:37 Troponin T Baseline 42 ng/L (0-15) H 08/06/21 20:37 Troponin T 120 Minute 40.49 ng/L (0-15) H 08/06/21 22:54 Delta Troponin T -1.51 ABS# (0-10) L 08/06/21 22:54 C-Reactive Protein 40.9 mg/L (0.0-4.9) H 08/06/21 20:37 NT-Pro-B Natriuret Pep 1499 pg/mL (0-125) H 08/06/21 20:37 Total Protein 7.5 g/dL (6.6-8.7) 08/06/21 20:37 Albumin 3.0 g/dL (3.5-5.2) L 08/06/21 20:37 Globulin 4.5 g/dL (1.3-4.6) 08/06/21 20:37 Procalcitonin 0.09 ng/mL (0-0.5) 08/06/21 20:37 Coronavirus 229E (PCR) Not detected (NOT DETECT) 08/06/21 21:05 SARS-CoV-2 (PCR) Not detected (NOT DETECT) 08/06/21 21:05 Discharge Plan Discharge Patient Disposition: Admitted As Inpatient Clinical Impression: Respiratory failure Qualifiers: Chronicity: acute on chronic Respiratory failure complication: hypoxia Qualified Code(s): J96.21 - Acute and chronic respiratory failure with hypoxia Condition: Fair Coding Level of Care Code ED Door To Door Selling Agent for [facility] Fwd Exam Comprehensive
[2021-08-06 21:23] LABS: NT Pro B Type Natriuretic Pept 1499 pg/mL (0-125); Procalcitonin 0.09 ng/mL (0-0.5)
[2021-08-06 21:34] LABS: Alanine Aminotransferase 10 U/L (0-41); Alkaline Phosphatase 204 IU/L (40-130); Anion Gap 11.3 (5-19); Aspartate Amino Transferase 21 U/L (0-40); Blood Urea Nitrogen 14 mg/dL (8-23); C Reactive Protein 40.9 mg/L (0.0-4.9); Calcium 8.8 mg/dL (8.5-10.5); Carbon Dioxide 27 mmol/L (22-29); Chloride 100 mmol/L (98-107); Globulin 4.5 g/dL (1.3-4.6); Glomerular Filtration Rate 84.4 mL/min (90-130); Glucose 157 mg/dL (65-115); Osmolality Calculated 282 mOsm/kg (285-295); Potassium 4.3 mmol/L (3.5-5.1); Sodium 134 mmol/L (136-145); Total Bilirubin 0.2 mg/dL (0.15-1.2); Total Protein 7.5 g/dL (6.6-8.7)
--- NOTE | 2021-08-06 21:53 | CTR_ITS ---
PROCEDURE INFORMATION: Exam: CTA Chest With Contrast Exam date and time: 08/06/2021 9:53 PM Age: 66 years old Clinical indication: Shortness of breath; Patient HX: Progressive SOB x 2 days; Additional info: SOB hypoxia TECHNIQUE: Imaging protocol: Computed tomographic angiography of the chest with contrast. 3D rendering (Not supervised by radiologist): MIP and/or 3D reconstructed images were created by the technologist. Radiation optimization: All CT scans at this facility use at least one of these dose optimization techniques: automated exposure control; mA and/or kV adjustment per patient size (includes targeted exams where dose is matched to clinical indication); or iterative reconstruction. Contrast material: OMNI 350; Contrast volume: 90 ml; Contrast route: INTRAVENOUS (IV); COMPARISON: CR (CHEST, ) 08/06/2021 8:57 PM RADIATION DOSE METRICS: Total DLP (mGy-cm): 629.74 FINDINGS: Pulmonary arteries: Normal. No pulmonary emboli. Aorta: Unremarkable. No aortic aneurysm. No aortic dissection. Lungs: See Pleural spaces finding. Pleural spaces: There are tiny bilateral pleural effusions. Strandy opacities and some consolidation is seen within the left lower lobe superimposed over the small left pleural effusion. Minimal patchy and strandy opacities are seen in the right lung base superimposed over the pleural effusion. Additionally, there are some ground-glass opacity seen within the left upper lobe adjacent to the major fissure. Heart: Calcifications are seen within the coronary arteries. Lymph nodes: Unremarkable. No enlarged lymph nodes. Bones/joints: Unremarkable. No acute fracture. Soft tissues: Unremarkable. CT/CT angio chest PE protcl [id number] IMPRESSION: 1. There is no evidence for pulmonary emboli. 2. There are small bilateral pleural effusions. 3. Strandy opacities and consolidation is seen in the left lower lobe. Subtle ground-glass opacities are seen adjacent to the major fissure within the left upper lobe and minimal patchy and strandy opacities are seen in the right lung base. These findings may represent atelectasis although a infiltrate and pneumonia cannot be excluded within the left lower lobe.
--- NOTE | 2021-08-06 22:35 | ECG_ITS ---
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 Measurements Intervals [place] Rate: 127 P: [place]: QRS: 18 QRSD: 93 T: 63 QT: 294 QTc: 427 Interpretive Statements ATRIAL FIBRILLATION WITH RAPID VENTRICULAR RESPONSE ABNORMAL RHYTHM ECG Compared to ECG 08/06/2021 20:46:49 Myocardial infarct finding no longer present Electronically Signed On 08-07-2021 16:21:41 INSOLE AND OUTSOLE SPLITTER by Melania Massey M.D. [id number]
[2021-08-06 22:52] LABS: Adenovirus Not Detected (NOT DETECT); Chlamydia Pneumoniae Not Detected (NOT DETECT); Coronavirus 229E,HKU1,NL63,OC4 Not Detected (NOT DETECT); Human Metapneumovirus Not Detected (NOT DETECT); Human Rhinovirus/Enterovirus Not Detected (NOT DETECT); Influenza A Not Detected (NOT DETECT); Influenza A H1 Not Detected (NOT DETECT); Influenza A H1-2009 Not Detected (NOT DETECT); Influenza A H3 Not Detected (NOT DETECT); Influenza B Not Detected (NOT DETECT); Mycoplasma Pneumoniae Not Detected (NOT DETECT); Parainfluenza Virus Type 1 Not Detected (NOT DETECT); Parainfluenza Virus Type 2 Not Detected (NOT DETECT); Parainfluenza Virus Type 3 Not Detected (NOT DETECT); Parainfluenza Virus Type 4 Not Detected (NOT DETECT); Respiratory Syncytial Virus A Not Detected (NOT DETECT); Respiratory Syncytial Virus B Not Detected (NOT DETECT); SARS-COV-2 Not Detected (NOT DETECT)
[2021-08-06] MEDS: iohexol 350 mg/mL 100 mL Btl IV (22:52)
[2021-08-06 23:16] LABS: Troponin 5 2HR 40.49 ng/L (0-15)
[2021-08-06 23:20] LABS: Troponin 5 2HR Delta -1.51 ABS# (0-10)
[2021-08-07] VITALS (19 sets, daily range): BP systolic 105–162; BP diastolic 43–86; PULSE 99–126; RESP 15–26; TEMP 36.6–37.1; O2SAT 91–97; BMI 39.5
[2021-08-07] MEDS: ropinirole 1 mg Tablet PO (00:01)
[2021-08-07] MEDS: ketorolac 30 mg/mL INJ 15 MG IVP (00:01)
--- NOTE | 2021-08-07 02:12 | P.HP_ITS ---
Providers/Chief Complaint Admitting Physician: Vanessa Pineda MD Primary Care Provider: Rachel Bills MD Chief Complaint: diff breathing History of Present Illness Juan Thomas is a 66 year old male with PMH COPD on 3lpm at home, recently diagnosed heart failure at SNF, discharged from SNF 2 days ago, h/o necrotizing fascitis of right arm in Mar 2021 which required Tx to [facility], [place] s/p multiple debridements, blood cx with strep spp at the time. States he had a prolonged admission course, then transferred to LTAC and eventually SNF and now discharged home 2 days ago. Presented to ER overnight with c/o shortness of breath that started suddenly yesterday morning. no fever, cough. States he has been compliant with all medications since his SNF discharge. Uses CPAP at home. Did not find any relief with CPAP use yesterday and presented to the ER. Here noted to be hypoxic with 02 sat low 80s. Improved on Bipap. Abg as noted below. CTA chest negative for PE. Shows possible pneumonia vs atelcatasis. Does not recall if he has ever had an echocardiogram. States he was clinically diagnosed with CHF and started on lasix recently. Does not recall dose. Has B/L LE edema. EKG additionally notes A futter/A fib with RVR, patient denies any past h/o being diagnosed with the same. HR ranging between 90-104 at this time. COVID PCR negative Review of Systems General: Reports: 10 or more systems reviewed and unremarkable except in HPI and below Const: Denies: fever(s), chills or body aches Eyes: Denies: change in vision, blurry vision or photophobia ENMT: Reports: hoarseness; Denies: throat pain, enlarged tonsils, odynophagia or nasal congestion Card: Denies: chest pain, palpitations, irregular heart rhythm, edema, swelling of feet/ankles, lightheadedness, pre-syncope, dyspnea on exertion or orthopnea Resp: Denies: dyspnea, productive cough, non-productive cough, wheezing, stridor, pain on inspiration, change in phlegm color, hemoptysis or chest congestion GI: Denies: abdominal pain, nausea, vomiting, hematemesis, coffee ground emesis, dysphagia, heartburn, diarrhea, constipation, GI cramping, change in stool character, hematochezia or melena : Denies: flank pain, dysuria, urinary frequency, urinary urgency, urinary hesitancy or hematuria Musc: Denies: neck pain, back pain, extremity pain, joint swelling, joint warmth or deformity Neuro: Denies: headache(s), numbness in extremities, weakness in extremities, sensory changes, difficulty walking, frequent falls, dizziness, vertigo, behavioral changes, Slurred speech present or seizure-like activity Psych: Denies: anxiety, depression, suicidal ideation or homicidal ideation Endo: Denies: polyuria, polydipsia, tired all the time, cold intolerance or hot flashes Keshav/Lymph: Denies: easy bruising or easy bleeding Medications/Allergies Home Medications Medication Instructions Recorded Confirmed Last Taken Type amlodipine 5 mg tablet 5 mg PO DAILY@0800 03/23/21 06/19/21 03/23/21 History levothyroxine 25 mcg tablet 25 mcg PO DAILY@0600 03/23/21 06/19/21 03/23/21 History lisinopril 5 mg tablet 5 mg PO DAILY@0800 03/23/21 06/19/21 Unknown History L.acidophilus-L.bulgar-B.bifid-S.thermoph 2 tab PO BID@,06/19/21 06/19/21 Unknown History 1 billion cell-250 mg tablet (Belle-Bid) acetaminophen 325 mg tablet 650 mg PO Q6H PRN 06/19/21 06/19/21 Unknown History aluminum-mag hydroxide-simethicone 30 ml PO Q4H PRN 06/19/21 06/19/21 Unknown History 200 mg-200 mg-20 mg/5 mL oral susp cephalexin 500 mg capsule 500 mg PO Q6H 06/19/21 06/19/21 Unknown History fluconazole 200 mg tablet 400 mg PO DAILY@0800 06/19/21 06/19/21 Unknown History gabapentin 300 mg capsule 300 mg PO BID@08,06/19/21 06/19/21 Unknown History insulin glargine 100 unit/mL (3 50 unit SUBCUT BID@07,06/19/21 06/19/21 Unknown History mL) subcutaneous pen (Lantus Solostar U-100 Insulin) insulin lispro 100 unit/mL See Rx Instructions .ROUTE .COMPLEX 06/19/21 06/19/21 Unknown History subcutaneous solution ipratropium 0.5 mg-albuterol 3 mg 3 ml INHALATION Q6H PRN 06/19/21 06/19/21 Unknown History (2.5 mg base)/3 mL nebulization soln melatonin 5 mg tablet 5 mg PO BEDTIME PRN 06/19/21 06/19/21 Unknown History mirtazapine 15 mg tablet 15 mg PO BEDTIME 06/19/21 06/19/21 Unknown History tamsulosin 0.4 mg capsule 0.4 mg PO DAILY@0900 06/19/21 06/19/21 Unknown History Allergies Allergy/AdvReac Type Severity Reaction Status Date / Time No Known Allergies Allergy Unverified 06/19/21 14:51 PFSH Acute PFSH: Medical History COPD (chronic obstructive pulmonary disease) Diabetes HTN (hypertension) Necrotizing fasciitis of shoulder region Social History Smoking and tobacco status: former smoker Alcohol intake: never Vitals/I&O/Wt Last Vital Signs Temp 98.3 F 08/07/21 01:53 Pulse 103 H 08/07/21 02:08 Resp 18 08/07/21 02:08 BP 148/86 08/07/21 02:08 Pulse Ox 96 08/07/21 02:08 Weight last 48 hrs Weight 136.078 kg Physical Exam Narrative: GEN: Awake, alert and oriented, Bipap in place CVS: S1S2 N RS: B/L crackles at lung bases Abd: Soft, nt/nd , bs+ 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 Chest CTA 08/06/21 21:53 IMPRESSION: 1. There is no evidence for pulmonary emboli. 2. There are small bilateral pleural effusions. 3. Strandy opacities and consolidation is seen in the left lower lobe. Subtle ground-glass opacities are seen adjacent to the major fissure within the left upper lobe and minimal patchy and strandy opacities are seen in the right lung base. These findings may represent atelectasis although a infiltrate and pneumonia cannot be excluded within the left lower lobe. Laboratory Results WBC 7.5 10^3/uL (4.0-10.0) 08/06/21 20:37 RBC 3.53 10^6/uL (4.1-5.3) L 08/06/21 20:37 Hgb 8.7 g/dL (11.7-16.6) L 08/06/21 20:37 Hct 30.2 % (42.0-52.0) L 08/06/21 20:37 MCV 85.6 fl (80-94) 08/06/21 20:37 MCH 24.6 pg (28.0-34.0) L 08/06/21 20:37 MCHC 28.8 g/dL (30.0-36.0) L 08/06/21 20:37 RDW 14.3 % (12.1-15.1) 08/06/21 20:37 Plt Count 239 10^3/cmm (130-400) 08/06/21 20:37 MPV 9.9 fL (7.4-10.4) 08/06/21 20:37 Neut % (Auto) 66.4 % 08/06/21 20:37 Lymph % (Auto) 20.9 % 08/06/21 20:37 [place] % (Auto) 10.1 % 08/06/21 20:37 Eos % (Auto) 1.9 % 08/06/21 20:37 Baso % (Auto) 0.3 % 08/06/21 20:37 Neut # (Auto) 4.99 10^3/uL (1.8-7.7) 08/06/21 20:37 Lymph # (Auto) 1.6 10^3/uL (0.8-4.8) 08/06/21 20:37 [place] # (Auto) 0.8 10^3/uL (0.2-0.9) 08/06/21 20:37 Eos # (Auto) 0.1 10^3/uL (0.0-0.8) 08/06/21 20:37 Baso # (Auto) 0.0 10^3/uL (0.0-0.1) 08/06/21 20:37 Nucleated RBC % (auto) 0 % 08/06/21 20:37 Nucleated RBCs # 0.0 /100WBC 08/06/21 20:37 D-Dimer 1.86 ug/mIFEU (0-0.59) H 08/06/21 20:37 Specimen Type Arterial 08/06/21 20:35 Sample Site Radial, left 08/06/21 20:35 ABG pH 7.41 (7.35-7.45) 08/06/21 20:35 ABG pCO2 51.0 mmHg (35-45) H 08/06/21 20:35 ABG pO2 101.0 mmHg (80.0-100.0) H 08/06/21 20:35 ABG HCO3 32.3 mmol/L (22-26) H 08/06/21 20:35 ABG Base Excess 6.7 mmol/L (-2.0-2.0) H 08/06/21 20:35 Matthew Test Pos 08/06/21 20:35 Hematocrit 27.7 % (42-52) L 08/06/21 20:35 O2 Delivery Device Nrb 08/06/21 20:35 O2 Liters/Min 15.0 % 08/06/21 20:35 FiO2 100.0 % 08/06/21 20:35 Mother Repairer ID Hensa 08/06/21 20:35 Sodium 134 mmol/L (136-145) L 08/06/21 20:37 Potassium 4.3 mmol/L (3.5-5.1) 08/06/21 20:37 Chloride 100 mmol/L (98-107) 08/06/21 20:37 Carbon Dioxide 27 mmol/L (22-29) 08/06/21 20:37 Anion Gap 11.3 (5-19) 08/06/21 20:37 BUN 14 mg/dL (8-23) 08/06/21 20:37 Creatinine 0.9 mg/dL (0.7-1.2) 08/06/21 20:37 GFR Calculation 84.4 mL/min (90-130) L 08/06/21 20:37 Glucose 157 mg/dL (65-115) H 08/06/21 20:37 POC Glucose 293 mg/dL (70-110) H 08/07/21 05:44 Calculated Osmolality 282 mOsm/kg (285-295) L 08/06/21 20:37 Lactic Acid 1.4 mmol/L (0.5-2.2) 08/06/21 20:37 Calcium 8.8 mg/dL (8.5-10.5) 08/06/21 20:37 Total Bilirubin 0.2 mg/dL (0.15-1.2) 08/06/21 20:37 AST 21 U/L (0-40) 08/06/21 20:37 ALT 10 U/L (0-41) 08/06/21 20:37 Alkaline Phosphatase 204 IU/L (40-130) H 08/06/21 20:37 Troponin T Baseline 42 ng/L (0-15) H 08/06/21 20:37 Troponin T 120 Minute 40.49 ng/L (0-15) H 08/06/21 22:54 Delta Troponin T -1.51 ABS# (0-10) L 08/06/21 22:54 Troponin T Hi Sens 6Hr 33.15 ng/L (0-15) H 08/07/21 05:32 Troponin T Hi Sens 6Hr Delta -8.85 ng/L (0-12) L 08/07/21 05:32 C-Reactive Protein 40.9 mg/L (0.0-4.9) H 08/06/21 20:37 NT-Pro-B Natriuret Pep 1499 pg/mL (0-125) H 08/06/21 20:37 Total Protein 7.5 g/dL (6.6-8.7) 08/06/21 20:37 Albumin 3.0 g/dL (3.5-5.2) L 08/06/21 20:37 Globulin 4.5 g/dL (1.3-4.6) 03/06/22 20:37 Procalcitonin 0.09 ng/mL (0-0.5) 08/06/21 20:37 Coronavirus 229E (PCR) Not detected (NOT DETECT) 08/06/21 21:05 SARS-CoV-2 (PCR) Not detected (NOT DETECT) 08/06/21 21:05 A&P Assessment and plan (1) Pneumonia: CTA with possible pneumonia vs atelactasis Started on Ceftriaxone and azithromycin for CAP titrate 02 to keep sat ~90% Status: Acute (2) COPD (chronic obstructive pulmonary disease): Acute on chronic with exacerbation Receievd 125mg solumedrol in ER continue methylpred 40mg iv q12h duonebs q6h and budesonide 0.5 q12h Status: Acute (3) Diabetes: Insulin sliding scale Status: Acute (4) HTN (hypertension): Status: Acute (5) Atrial flutter: newly diagnosed per patient HR raging 90-104, start metoprolol 12.mg BID Tele monitoring Status: Acute (6) Heart failure: Unspecified heart failure at this time , per patient this appears to have been a recent clinical diagnosis Check echocardiogram troponin series currently negative at 2 and 6 hrs Lasix 80mg iv given in ER< continue 40mg iv daily titrate per urine output and kidney funtion BNP 1400 Unknown if evalauted for endocarditis in Mar 2021 at time of nec fascitis and strep bacetremia Status: Acute Plan h/o nec fascitis and strep bacetremia Mar 2021: no preceeding trauma per patient. Site of right arm debridements does not appear to grossly cellulitic at this time, however he reports that it appears to be slightly more erythematous over the past week. No fluctuatant swelling Blood cx taken and pending Attestations Medical Necessity Statement*: >2midnight admission anticipated for treatment of pneumonia with iv abx, treatment of heart failure with iv diuretics, need for BIPAP support currently, newly diagnosed A flutter Coding Level of Care Code Acute Corridor Redevelopment Manager for [facility] F[facility] Diagnoses Pneumonia J18.9 COPD (chronic obstructive pulmonary disease) J44.9 Diabetes E11.9 HTN (hypertension) I10 Atrial flutter I48.92 Heart failure I50.9
[2021-08-07] MEDS: metoprolol tartrate 1 mg/1 mL SDV 5 mL 5 MG IVP ×2 (02:35→06:38)
--- NOTE | 2021-08-07 02:35 | ECG_ITS ---
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 Measurements Intervals [place] Rate: 116 P: [place]: QRS: 21 QRSD: 96 T: 69 QT: 319 QTc: 444 Interpretive Statements ATRIAL fibrillation WITH RAPID VENTRICULAR RESPONSE ANTEROSEPTAL MYOCARDIAL INFARCTION , OF INDETERMINATE AGE [40+ ms Q WAVE IN V1-V4] Compared to ECG 08/06/2021 22:54:59 Myocardial infarct finding now present Electronically Signed On 08-07-2021 16:19:59 DIRECTOR OF ASSISTED LIVING by Melania Massey M.D. [id number]
[2021-08-07 05:54] LABS: Glucose Point of Care 293 mg/dL (70-110)
[2021-08-07 06:02] LABS: Troponin 5 6HR 33.15 ng/L (0-15)
[2021-08-07 06:10] LABS: Troponin 5 6HR Delta -8.85 ng/L (0-12)
[2021-08-07] MEDS: enoxaparin 40 mg/0.4 mL Syringe SUBCUT (06:16)
[2021-08-07] MEDS: levothyroxine 25 mcg Tablet PO (06:16)
--- NOTE | 2021-08-07 06:36 | USCV_ITS ---
William Juan Age: 66 Gender: M : 1955 Exam Date: 08/07/2021 16:56 Ordering Phys: Vanessa Pineda MD Technologist: KENDY [place] [facility] [place]: heart [place] BP: 140 / 80 HR: 82 Rhythm: Sinus Technical Quality: Adequate MEASUREMENTS (Male / Female) Normal Values 2D ECHO LV Diastolic Diameter PLAX 4.8 cm 4.2 - 5.9 / 3.9 - 5.3 cm LV Systolic Diameter PLAX 3.5 cm IVS Diastolic Thickness 0.8 cm 0.6 - 1.0 / 0.6 - 0.9 cm IVS Systolic Thickness 1.1 cm LVPW Diastolic Thickness 1.4 cm 0.6 - 1.0 / 0.6 - 0.9 cm LVPW Systolic Thickness 2.0 cm LVOT Diameter 2.0 cm LV Ejection Fraction 2D Teich 53.5 % LV Ejection Fraction MOD 2C 56.0 % LV Ejection Fraction 2C AL 58.7 % LA Diameter 3.8 cm LA Width 4.6 cm LA Height 6.9 cm RA Width 4.9 cm RA Height 5.8 cm Aorta at Sinotubular Diameter 2.5 cm M-MODE Aortic Annulus Diameter 3.0 cm LA Ao Ratio MM 1.1 MV E Point Septal Separation 0.6 cm DOPPLER AV Peak Velocity 134.0 cm/s LVOT Peak Velocity 116.0 cm/s AV Area Cont Eq vti 2.7 cm squared AV Area Cont Eq pk 2.8 cm squared TR Peak Velocity 299.5 cm/s TR Peak Gradient 35.9 mmHg TR Mean Velocity 243.4 cm/s TR Mean Gradient 25.7 mmHg TR Velocity Time Integral 74.0 cm RV Acceleration Time 0.1 s RV Ejection Time 0.3 s RV AcT/ET 0.4 FINDINGS Left Ventricle Normal left ventricular size. LV systolic function is normal with EF of 55-60%. No regional wall motion abnormalities. Diastolic function is indeterminate because of atrial fibrillation Right Ventricle The right ventricle is normal in size and function. Right Atrium The right atrium is normal in size. Left Atrium The left atrium is dilated Mitral Valve Structurally normal mitral valve without significant stenosis or prolapse. There is mild mitral regurgitation. Aortic Valve Structurally normal aortic valve without significant sclerosis or stenosis. There is no aortic regurgitation. Tricuspid Valve Structurally normal tricuspid valve without significant stenosis or regurgitation. Insufficient TR jet to calculate RV systolic pressure Pulmonic Valve Grossly normal Pericardium Normal pericardium without effusion. Aorta Normal ascending aorta dimension. CONCLUSIONS LV systolic function is normal with EF of 55-60% Diastolic function is indeterminate because of atrial fibrillation Left atrium is dilated Mild mitral regurgitation Compared to prior echocardiogram from 01/20/2018, no significant changes are noted Bora Gómez MD (Electronically Signed) Final Date: 07 August 2021 21:51 S
[2021-08-07] MEDS: budesonide 0.5 mg/2 mL Neb INHALATION ×2 (08:41→22:40)
[2021-08-07] MEDS: ipratropium-albuterol 3 mL Neb INHALATION ×3 (08:41→22:40)
[2021-08-07] MEDS: tamsulosin 0.4 mg Capsule PO (09:02)
[2021-08-07] MEDS: azithromycin 250 mg Tablet 500 MG PO (09:02)
[2021-08-07] MEDS: amlodipine 5 mg Tablet PO (09:02)
[2021-08-07] MEDS: lisinopril 5 mg Tablet PO (09:02)
[2021-08-07] MEDS: gabapentin 300 mg Capsule PO ×2 (09:02→21:01)
[2021-08-07] MEDS: insulin lispro 100 unit/1 mL SUBCUT ×4 (09:03→21:08)
[2021-08-07] MEDS: pantoprazole DR 40 mg Tablet PO (09:03)
[2021-08-07] MEDS: metoprolol tartrate 25 mg Tablet 12.5 MG PO (09:03)
[2021-08-07] MEDS: cefTRIAXone 1,000 MG in sodium chloride 0.9% (plus) 50 ML 100 MG IV (09:17)
--- NOTE | 2021-08-07 09:49 | PC.NURSE ---
Physician notified Physician notified of patients afib with RVR rate in 130's this morning and currently in the 112-120 range now. Received verbal orders to give 25mg PO metoprolol once time
[2021-08-07] MEDS: FUROsemide 10 mg/mL SDV 4mL 40 MG IVP (10:07)
[2021-08-07] MEDS: metoprolol tartrate 25 mg Tablet PO ×2 (10:33→12:03)
--- NOTE | 2021-08-07 11:31 | PC.NURSE ---
Physician orders Lantus 45 units ONE time NOW> Additional dose of Metoprolol 25mg PO ONCE NOW.
[2021-08-07 11:37] LABS: Glucose Point of Care 473 mg/dL (70-110)
[2021-08-07] MEDS: insulin glargine 100 units/1 mL 45 UNIT SUBCUT ×2 (12:03→21:03)
--- NOTE | 2021-08-07 12:09 | PC.CHAP ---
Pastoral Care Encounter/Spiritual Assessment Type of Contact [] Declined bookbinder chief visit [] Patient/Family/Request visit [] Outpatient visit [] Follow-up visit [] Physician referral [] Code/Alert [x] Routine visit [] Staff referral [] Actively dying [] Patient sleeping [] Family support [] [] Out of room [] Palliative care [] [] Receiving care in room [] Pre-surgical visit [] Trauma [] Long length of stay [] ICU visit [] Other: Relational/Emotional Strength [x] Patient feels connected with others/family/visitors/staff [] Distress [] Loneliness/isolation [] Abandonment Spirituality of Patient [x] Person of Kasia [x] Attends Orthodoxy of their Kasia [x] Believes in Prayer [] Reads Bible or Jain materials [] There are Spiritual issues to be addressed Mens Locker Room Attendant Interventions [x] Prayer [x] Active listening x] Non-anxious presence [x] Spiritual/emotional support [] Crisis/trauma care [x] Spiritual counseling [] Bereavement support [] Provided bereavement packet [] Provided Bible/devotional materials [] Provided toy/stuffed animal, coloring book to patient or family member [] Provided Communion [] Anointing/[place] [] Salvation [x] Completed spiritual assessment [] Other: Impact on Illness or Injury [] Angry [] Fearful [] Anxious [] Often cries [] Exhaustion [] Unable to work [] Unable to attend baptism [] Unable to walk/stand [] Unable to read [] Unable to drive [] Unable to eat/drink [] Unable to sleep [] Unable to be with family [] Patient intubated [] Other: Summary Time spent with patient 10 min
--- NOTE | 2021-08-07 12:29 | USCV_ITS ---
Juan Thomas Age: 66 Gender: M : 1955 Exam Date: 08/07/2021 16:27 Ordering Phys: Sascha Em MD Technologist: Erik Colunga Exam Location: [facility] – [place] Indication: DVT PROCEDURES: Venous duplex imaging was performed in only the right upper extremity. The following venous structures were evaluated: internal jugular vein, subclavian vein, axillary vein, and brachial veins. In addition, the basilic vein, cephalic vein, radial vein, and ulnar vein. FINDINGS: The veins of the right upper extremity are readily compressible with normal venous flow dynamics including spontaneous flow, respiratory phasic variation and augmentation. The cephalic vein was not identified. The patient had a scar running along the area of the cephalic vein location. CONCLUSIONS No right upper extremity DVT. Cephalic vein not identified. Dr. Dana Madden DO (Electronically Signed) Final Date: 08 August 2021 08:04 S
[2021-08-07 17:03] LABS: Glucose Point of Care 298 mg/dL (70-110)
[2021-08-07] MEDS: levothyroxine 50 mcg Tablet PO (17:26)
[2021-08-07] MEDS: acetaminophen 325 mg Tablet 650 MG PO (21:01)
[2021-08-07] MEDS: CLONazepam 1 mg Tablet 0.5 MG PO (21:02)
[2021-08-07] MEDS: metoprolol tartrate 50 mg Tablet PO (21:02)
[2021-08-07] MEDS: mirtazapine 15 mg Tablet PO (21:02)
--- NOTE | 2021-08-07 21:14 | PC.NURSE ---
Patient complaints of headache and wanting a sleeping aide. Patient takes klonopin at home for sleep. Given tylenol and Klonopin. Will monitor.
[2021-08-07 21:23] LABS: Glucose Point of Care 255 mg/dL (70-110)
[2021-08-08] VITALS (13 sets, daily range): BP systolic 94–143; BP diastolic 62–77; PULSE 76–107; RESP 16–24; TEMP 36.6–36.8; O2SAT 91–99
[2021-08-08 03:25] LABS: Basophils % 0.1 %; Hematocrit 28.8 % (42.0-52.0); Hemoglobin 8.3 g/dL (11.7-16.6); Lymphocytes # 1.6 10^3/uL (0.8-4.8); Lymphocytes % 15.9 %; Mean Corpuscular HGB Conc 28.8 g/dL (30.0-36.0); Mean Corpuscular Hemoglobin 24.5 pg (28.0-34.0); Mean Platelet Volume 10.3 fL (7.4-10.4); Monocytes # 0.9 10^3/uL (0.2-0.9); Neutrophils % 74.5 %; Nucleated Red Blood Cells % 0 %; Platelet Count 285 10^3/cmm (130-400); Red Blood Count 3.39 10^6/uL (4.1-5.3); Red Cell Distribution Width 14.3 % (12.1-15.1); White Blood Count 10.2 10^3/uL (4.0-10.0)
[2021-08-08 03:54] LABS: Alanine Aminotransferase 12 U/L (0-41); Albumin Level 3.4 g/dL (3.5-5.2); Alkaline Phosphatase 169 IU/L (40-130); Anion Gap 14.5 (5-19); Aspartate Amino Transferase 17 U/L (0-40); Blood Urea Nitrogen 31 mg/dL (8-23); Calcium 9.2 mg/dL (8.5-10.5); Carbon Dioxide 27 mmol/L (22-29); Chloride 93 mmol/L (98-107); Globulin 4.2 g/dL (1.3-4.6); Glomerular Filtration Rate 60.6 mL/min (90-130); Glucose 207 mg/dL (65-115); Osmolality Calculated 283 mOsm/kg (285-295); Potassium 4.5 mmol/L (3.5-5.1); Sodium 130 mmol/L (136-145); Thyroid Stimulating Hormone 0.21 uIU/mL (0.27-4.20); Total Bilirubin 0.2 mg/dL (0.15-1.2); Total Protein 7.6 g/dL (6.6-8.7)
[2021-08-08] MEDS: sertraline 50 mg Tablet PO (06:00)
[2021-08-08] MEDS: enoxaparin 40 mg/0.4 mL Syringe SUBCUT (06:00)
--- NOTE | 2021-08-08 07:22 | PC.NURSE ---
Patient alert and oriented. Patient heart rate managed through the night. Will continue to monitor.
[2021-08-08 08:11] LABS: Glucose Point of Care 181 mg/dL (70-110)
[2021-08-08] MEDS: insulin lispro 100 unit/1 mL SUBCUT ×4 (08:15→21:54)
[2021-08-08] MEDS: azithromycin 250 mg Tablet 500 MG PO (08:16)
[2021-08-08] MEDS: cefTRIAXone 1,000 MG in sodium chloride 0.9% (plus) 50 ML 100 MG IV (08:16)
[2021-08-08] MEDS: lisinopril 5 mg Tablet PO (08:16)
[2021-08-08] MEDS: amlodipine 5 mg Tablet PO (08:16)
[2021-08-08] MEDS: tamsulosin 0.4 mg Capsule PO (08:17)
[2021-08-08] MEDS: gabapentin 300 mg Capsule PO ×2 (08:17→21:53)
[2021-08-08] MEDS: pantoprazole DR 40 mg Tablet PO (08:17)
[2021-08-08] MEDS: predniSONE 20 mg Tablet 40 MG PO (08:17)
[2021-08-08] MEDS: FUROsemide 10 mg/mL SDV 4mL 40 MG IVP (08:18)
[2021-08-08] MEDS: metoprolol tartrate 50 mg Tablet PO (08:37)
[2021-08-08] MEDS: insulin glargine 100 units/1 mL 45 UNIT SUBCUT ×2 (08:37→21:54)
[2021-08-08] MEDS: ipratropium-albuterol 3 mL Neb INHALATION ×3 (09:43→20:56)
[2021-08-08] MEDS: budesonide 0.5 mg/2 mL Neb INHALATION ×2 (09:43→20:56)
--- NOTE | 2021-08-08 10:57 | CT_ITS ---
WS: [id number] CT RIGHT SHOULDER HISTORY: History of necrotizing fasciitis, post debridement. Possible collection. Technique: All CT scans at [facility] use at least one of these dose optimization techniques: automated exposure control; mA and/or kV adjustment per patient size (includes targeted exams where dose is matched to clinical indication); or iterative reconstruction. DLP: 4758.99 mGy.cm COMPARISON: Reviewed study from 08/06/2021 and 03/23/2021. Abnormal appearance to the humeral head and the glenoid. There is loss of the normal cortex. Mild ost eolysis and loss of the normal mineral content of the humeral head and the adjacent glenoid. Narrowin g of the glenohumeral joint. Small erosions along the glenoid with loss of the normal cortex. There a re also erosions and irregularity involving the glenoid. Humeral head is slightly high riding. There is a fluid collection surrounding the humeral head with adjacent soft tissue edema. Small osteophyte versus bone fragment just medial to the humeral metaphysis. Narrowing of the AC joint with small osteophytes. Visualized RIGHT lung is clear. There is a very small layering RIGHT pleural effusion. CT/CT shoulder RT wo con* [id number] IMPRESSION: 1. Progressive narrowing and osseous destruction at the RIGHT glenohumeral jama nt since 03/23/2021. There are erosions with joint space narrowing and loss of the normal normalization. There is also a moderate size joint effusion. Differe ntial includes septic arthritis and inflammatory arthritis. Consider rheumatoid but more likely infected joint. Extensive joint capsule thickening and air not ed on a prior CT from 03/23/2021. The foci of air are no longer present but the re has been progressive destruction of the glenohumeral joint. 2. Mild AC joint arthritis.
[2021-08-08 11:08] LABS: Glucose Point of Care 270 mg/dL (70-110)
[2021-08-08 11:53] LABS: Free T4 Free Thyroxine 1.07 ng/dL (0.82-1.77); T3 Free 1.8 PG/ML (2.0-4.4)
[2021-08-08] MEDS: metoprolol tartrate 25 mg Tablet PO (12:41)
--- NOTE | 2021-08-08 15:17 | PM.PN ---
Subjective Subjective: No acute events overnight. Patient has remained hemodynamically stable. Currently on 2 L O2 96%. Seen with family at bedside. States feeling a little better. Heart rate better controlled. Vitals/I&O/Wt Last Vital Signs Temp 98.1 F 08/08/21 07:47 Pulse 78 08/08/21 14:43 Resp 18 08/08/21 14:43 BP 126/77 08/08/21 11:03 Pulse Ox 96 08/08/21 14:43 08/08/21 08/08/21 08/08/21 06:59 14:59 22:59 Intake Total 120 / 664 720 / 720 Output Total 350 / 850 1900 / 1900 Balance -230 / -186 -1180 / -1180 Weight last 48 hrs Weight 136.078 kg Weight 136.078 kg Physical Exam Narrative: General: No acute distress, AO x3, on 2 L nasal cannula HEENT: PERRLA, pupils bilaterally equal and reactive Chest: Bilateral bronchial breath sounds, fine crackles were present in lower zone bilaterally, equal good air entry bilaterally CVS: S1-S2 irregularly irregular, no murmurs, no tachycardia, no gallops, no rubs Abdomen: Soft, nontender, no organomegaly, bowel sounds present Neuro: No focal deficits, no facial deformity, AO x3, power 5/5 in all limbs Data : 08/08/21 02:16 08/08/21 02:16 Micro: Microbiology 08/06/21 22:54 Blood Culture - Preliminary Blood NEGATIVE TO DATE 08/06/21 20:37 Blood Culture - Preliminary Blood NEGATIVE TO DATE A&P Assessment and plan (1) Atrial flutter: Status: Acute (2) Heart failure: Status: Acute Qualifiers: Heart failure type: diastolic Heart failure chronicity: acute on chronic Qualified Code(s): I50.33 - Acute on chronic diastolic (congestive) heart failure (3) Pneumonia: Status: Acute (4) COPD (chronic obstructive pulmonary disease): Status: Acute (5) Diabetes: Status: Acute (6) HTN (hypertension): Status: Acute Plan Shortness of breath: Most likely secondary to diastolic congestive heart failure along with mild COPD exacerbation. Less likely secondary to pneumonia. CT chest done on admission consistent with possible pneumonia in the left lower lobe versus atelectasis. Pro-Sylvester negative, patient has remained afebrile, mild leukocytosis. Hold off on antibiotics and monitor. Echocardiogram done shows an EF of 55%, indeterminate diastolic function given atrial fibrillation., Dilated LA, mild MR. Continue with IV Lasix 40 mg daily for now. Strict input output charting, daily weights. Fluid restriction up to 1500 cc. Continue with DuoNeb every 6 hour, budesonide twice daily. Prednisone 40 mg oral daily for 5 days. Atrial fibrillation with rapid ventricular response: Heart rate better controlled. Increase metoprolol to 75 mg twice daily. Asa vas score?4 for age hypertension, diabetes, congestive heart failure. Discussed in detail regarding anticoagulation with patient about merits versus demerits of anticoagulation for stroke prevention. Patient is agreeable to start. Start on Eliquis 5 mg twice daily. Hypertension: Goal blood pressure less than 140/90 mmHg. Continue to hold dose of lisinopril. Metoprolol as above. Stop amlodipine. If needed will uptitrate lisinopril. Type 2 diabetes mellitus: Insulin sliding scale at high-dose protocol. Lantus 40 units twice daily. Necrotizing fascitis and strep bacetremia Mar 2021: no preceeding trauma per patient. Site of right arm debridements does not appear to grossly cellulitic at this time, however he reports that it appears to be slightly more erythematous over the past week. No fluctuatant swelling. Upper limb Doppler negative for DVT. CT upper limb to rule out underlying collection. Blood cx taken and so far negative. Full code. Cardiac carb consistent diet. Protonix for PUD prophylaxis. Discharge planning: Discussed in detail with the patient. Patient wants to go to SNF for further rehabilitation. Awaiting placement. Attestations Medical Necessity Statement*: Requires further hospitalization for management of shortness of breath secondary to diastolic congestive heart failure, mild COPD exacerbation leading of atrial fibrillation. 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
[2021-08-08 16:57] LABS: Glucose Point of Care 265 mg/dL (70-110)
[2021-08-08] MEDS: levothyroxine 50 mcg Tablet PO (18:08)
--- NOTE | 2021-08-08 20:06 | PC.NURSE ---
i reported high pulse 106 to nurse
[2021-08-08 20:54] LABS: Glucose Point of Care 325 mg/dL (70-110)
[2021-08-08] MEDS: apixaban 5 mg Tablet PO (21:53)
[2021-08-08] MEDS: CLONazepam 1 mg Tablet 0.5 MG PO (21:53)
[2021-08-08] MEDS: mirtazapine 15 mg Tablet PO (21:55)
[2021-08-08] MEDS: metoprolol tartrate 50 mg Tablet 75 MG PO (21:55)
[2021-08-09] VITALS (16 sets, daily range): BP systolic 110–134; BP diastolic 66–82; PULSE 83–111; RESP 16–20; TEMP 36.3–36.7; O2SAT 90–96
[2021-08-09] MEDS: ipratropium-albuterol 3 mL Neb INHALATION ×4 (03:07→20:50)
[2021-08-09] MEDS: sertraline 50 mg Tablet PO (06:11)
[2021-08-09 06:34] LABS: Glucose Point of Care 123 mg/dL (70-110)
[2021-08-09 07:22] LABS: Basophils # 0.1 10^3/uL (0.0-0.1); Basophils % 0.5 %; Eosinophils # 0.1 10^3/uL (0.0-0.8); Eosinophils % 0.7 %; Hematocrit 29.1 % (42.0-52.0); Hemoglobin 8.4 g/dL (11.7-16.6); Lymphocytes # 2.8 10^3/uL (0.8-4.8); Lymphocytes % 29.8 %; Mean Corpuscular HGB Conc 28.9 g/dL (30.0-36.0); Mean Corpuscular Hemoglobin 24.9 pg (28.0-34.0); Mean Corpuscular Volume 86.4 fl (80-94); Mean Platelet Volume 9.7 fL (7.4-10.4); Monocytes % 11.1 %; Neutrophils % 57.5 %; Nucleated Red Blood Cells % 0 %; Platelet Count 262 10^3/cmm (130-400); Red Blood Count 3.37 10^6/uL (4.1-5.3); Red Cell Distribution Width 14.5 % (12.1-15.1); White Blood Count 9.2 10^3/uL (4.0-10.0)
[2021-08-09 07:35] LABS: Alanine Aminotransferase 16 U/L (0-41); Albumin Level 3.2 g/dL (3.5-5.2); Alkaline Phosphatase 159 IU/L (40-130); Anion Gap 12.2 (5-19); Aspartate Amino Transferase 28 U/L (0-40); Blood Urea Nitrogen 41 mg/dL (8-23); Calcium 9.2 mg/dL (8.5-10.5); Carbon Dioxide 27 mmol/L (22-29); Chloride 99 mmol/L (98-107); Globulin 3.9 g/dL (1.3-4.6); Glomerular Filtration Rate 74.8 mL/min (90-130); Glucose 92 mg/dL (65-115); Osmolality Calculated 288 mOsm/kg (285-295); Potassium 4.2 mmol/L (3.5-5.1); Sodium 134 mmol/L (136-145); Total Bilirubin 0.2 mg/dL (0.15-1.2); Total Protein 7.1 g/dL (6.6-8.7)
[2021-08-09] MEDS: budesonide 0.5 mg/2 mL Neb INHALATION ×2 (08:14→20:50)
--- NOTE | 2021-08-09 09:23 | PC.SOCIAL ---
IMM Update Pg. 2 of IMM updated and reviewed with patient, who verbalized understanding. Copy provided.
[2021-08-09] MEDS: cefTRIAXone 1,000 MG in sodium chloride 0.9% (plus) 50 ML 100 MG IV (09:40)
[2021-08-09] MEDS: tamsulosin 0.4 mg Capsule PO (09:41)
[2021-08-09] MEDS: gabapentin 300 mg Capsule PO ×2 (09:41→20:17)
[2021-08-09] MEDS: metoprolol tartrate 50 mg Tablet 75 MG PO ×2 (09:42→20:16)
[2021-08-09] MEDS: pantoprazole DR 40 mg Tablet PO (09:44)
[2021-08-09] MEDS: azithromycin 250 mg Tablet 500 MG PO (09:44)
[2021-08-09] MEDS: predniSONE 20 mg Tablet 40 MG PO (09:44)
[2021-08-09] MEDS: lisinopril 5 mg Tablet PO (09:44)
[2021-08-09] MEDS: apixaban 5 mg Tablet PO ×2 (10:11→20:17)
[2021-08-09] MEDS: insulin glargine 100 units/1 mL 45 UNIT SUBCUT ×2 (10:12→20:17)
[2021-08-09] MEDS: FUROsemide 40 mg Tablet 60 MG PO (10:44)
[2021-08-09 10:48] LABS: Glucose Point of Care 232 mg/dL (70-110)
[2021-08-09] MEDS: insulin lispro 100 unit/1 mL SUBCUT ×3 (12:22→20:23)
--- NOTE | 2021-08-09 13:43 | PM.PN ---
Subjective Subjective: No acute events overnight. Has remained hemodynamically stable. Today morning patient lost his IV line. Denies any nausea, vomiting, headache. Review of CPAP overnight. On 1 L oxygen during the day. Vitals/I&O/Wt Last Vital Signs Temp 97.9 F 08/09/21 12:00 Pulse 93 08/09/21 12:00 Resp 18 08/09/21 12:00 BP 127/68 08/09/21 12:00 Pulse Ox 90 08/09/21 12:00 08/08/21 08/09/21 08/09/21 22:59 06:59 14:59 Intake Total 290 / 1010 1080 / 1080 Output Total 710 / 3110 320 / 3430 700 / 700 Balance -420 / -2100 -320 / -2420 380 / 380 Physical Exam Narrative: General: No acute distress, AO x3, on 2 L nasal cannula HEENT: PERRLA, pupils bilaterally equal and reactive Chest: Bilateral bronchial breath sounds, fine crackles were present in lower zone bilaterally, equal good air entry bilaterally CVS: S1-S2 irregularly irregular, no murmurs, no tachycardia, no gallops, no rubs Abdomen: Soft, nontender, no organomegaly, bowel sounds present Neuro: No focal deficits, no facial deformity, AO x3, power 5/5 in all limbs Data : 08/09/21 07:04 08/09/21 07:04 A&P Assessment and plan (1) Atrial flutter: Status: Acute (2) Heart failure: Status: Acute Qualifiers: Heart failure type: diastolic Heart failure chronicity: acute on chronic Qualified Code(s): I50.33 - Acute on chronic diastolic (congestive) heart failure (3) Pneumonia: Status: Acute (4) COPD (chronic obstructive pulmonary disease): Status: Acute (5) Diabetes: Status: Acute (6) HTN (hypertension): Status: Acute Plan Shortness of breath: Most likely secondary to diastolic congestive heart failure along with mild COPD exacerbation. Less likely secondary to pneumonia. CT chest done on admission consistent with possible pneumonia in the left lower lobe versus atelectasis. Pro-Sylvester negative, patient has remained afebrile, mild leukocytosis. Hold off on antibiotics and monitor. Echocardiogram done shows an EF of 55%, indeterminate diastolic function given atrial fibrillation. Dilated LA, mild MR. Switch to oral Lasix 60 mg daily. Strict input output charting, daily weights. Fluid restriction up to 1500 cc. Continue with DuoNeb every 6 hour, budesonide twice daily. Prednisone 40 mg oral daily for 5 days. Atrial fibrillation with rapid ventricular response: Heart rate better controlled. Continue with metoprolol 75 mg twice daily. Asa vas score?4 for age hypertension, diabetes, congestive heart failure. Discussed in detail regarding anticoagulation with patient about merits versus demerits of anticoagulation for stroke prevention. Patient is agreeable to start. Continue with Eliquis 5 mg twice daily. Hypertension: Goal blood pressure less than 140/90 mmHg. Continue with lisinopril 5 mg daily, metoprolol as above. Stop amlodipine. If needed will uptitrate lisinopril. Type 2 diabetes mellitus: Insulin sliding scale at high-dose protocol. Lantus 40 units twice daily. Necrotizing fascitis and strep bacetremia Mar 2021: no preceeding trauma per patient. Site of right arm debridements does not appear to grossly cellulitic at this time, however he reports that it appears to be slightly more erythematous over the past week. No fluctuatant swelling. Upper limb Doppler negative for DVT. CT upper limb to rule out underlying collection. Blood cx taken and so far negative. Full code. Cardiac carb consistent diet. Protonix for PUD prophylaxis. Discharge planning: Discussed in detail with the patient. Patient wants to go to SNF for further rehabilitation. Awaiting placement. 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 Fwd Diagnoses Atrial flutter I48.92 Heart failure I50.33 Heart failure type: diastolic Heart failure chronicity: acute on chronic Pneumonia J18.9 COPD (chronic obstructive pulmonary disease) J44.9 Diabetes E11.9 HTN (hypertension) I10
[2021-08-09 16:59] LABS: Glucose Point of Care 232 mg/dL (70-110)
--- NOTE | 2021-08-09 18:55 | PC.NURSE ---
i reported high pulse 107 to nurse
[2021-08-09] MEDS: levothyroxine 50 mcg Tablet PO (19:15)
[2021-08-09] MEDS: mirtazapine 15 mg Tablet PO (20:17)
[2021-08-09 20:27] LABS: Glucose Point of Care 371 mg/dL (70-110)
[2021-08-09] MEDS: CLONazepam 1 mg Tablet 0.5 MG PO (22:59)
[2021-08-10] VITALS (9 sets, daily range): BP systolic 120–136; BP diastolic 67–87; PULSE 83–101; RESP 16–20; TEMP 36.4–36.6; O2SAT 88–95
[2021-08-10] MEDS: ipratropium-albuterol 3 mL Neb INHALATION ×2 (02:55→08:45)
[2021-08-10 04:28] LABS: Basophils % 0.4 %; Eosinophils % 0.3 %; Hematocrit 29.4 % (42.0-52.0); Hemoglobin 8.6 g/dL (11.7-16.6); Lymphocytes # 2.3 10^3/uL (0.8-4.8); Lymphocytes % 25.3 %; Mean Corpuscular HGB Conc 29.3 g/dL (30.0-36.0); Mean Corpuscular Hemoglobin 24.4 pg (28.0-34.0); Mean Corpuscular Volume 83.5 fl (80-94); Mean Platelet Volume 9.7 fL (7.4-10.4); Monocytes # 1.2 10^3/uL (0.2-0.9); Monocytes % 12.9 %; Neutrophils # 5.49 10^3/uL (1.8-7.7); Neutrophils % 60.7 %; Nucleated Red Blood Cells % 0 %; Platelet Count 278 10^3/cmm (130-400); Red Blood Count 3.52 10^6/uL (4.1-5.3); Red Cell Distribution Width 14.5 % (12.1-15.1); White Blood Count 9.1 10^3/uL (4.0-10.0)
[2021-08-10 04:54] LABS: Alanine Aminotransferase 18 U/L (0-41); Alkaline Phosphatase 159 IU/L (40-130); Anion Gap 13.4 (5-19); Aspartate Amino Transferase 29 U/L (0-40); Blood Urea Nitrogen 43 mg/dL (8-23); Calcium 9.2 mg/dL (8.5-10.5); Carbon Dioxide 29 mmol/L (22-29); Chloride 98 mmol/L (98-107); Globulin 4.4 g/dL (1.3-4.6); Glomerular Filtration Rate 84.4 mL/min (90-130); Glucose 95 mg/dL (65-115); Osmolality Calculated 293 mOsm/kg (285-295); Potassium 4.4 mmol/L (3.5-5.1); Sodium 136 mmol/L (136-145); Total Bilirubin 0.2 mg/dL (0.15-1.2); Total Protein 7.4 g/dL (6.6-8.7)
[2021-08-10] MEDS: sertraline 50 mg Tablet PO (06:05)
[2021-08-10 06:20] LABS: Glucose Point of Care 93 mg/dL (70-110)
--- NOTE | 2021-08-10 07:47 | PC.NURSE ---
Report received from Anisha Haskins at this time.
[2021-08-10] MEDS: metoprolol tartrate 50 mg Tablet 75 MG PO (08:24)
[2021-08-10] MEDS: tamsulosin 0.4 mg Capsule PO (08:24)
[2021-08-10] MEDS: lisinopril 5 mg Tablet PO (08:24)
[2021-08-10] MEDS: FUROsemide 40 mg Tablet 60 MG PO (08:25)
[2021-08-10] MEDS: gabapentin 300 mg Capsule PO (08:25)
[2021-08-10] MEDS: apixaban 5 mg Tablet PO (08:25)
[2021-08-10] MEDS: pantoprazole DR 40 mg Tablet PO (08:25)
[2021-08-10] MEDS: predniSONE 20 mg Tablet 40 MG PO (08:25)
[2021-08-10] MEDS: insulin glargine 100 units/1 mL 45 UNIT SUBCUT (08:32)
[2021-08-10] MEDS: budesonide 0.5 mg/2 mL Neb INHALATION (08:45)
[2021-08-10 11:24] LABS: SARS Covid-2 Antigen Negative (Negative)
[2021-08-10 12:15] LABS: Glucose Point of Care 168 mg/dL (70-110)
--- NOTE | 2021-08-10 12:40 | P.DS_ITS ---
Discharge Providers Date of Admission: 08/06/21 23:43 Date of Discharge: August 10, 2021 Attending Provider at Admission: Vanessa Pineda MD Attending Provider at Discharge: Sascha Em MD Primary Care Provider: Rachel Bills MD Diagnoses at Discharge Discharge Diagnosis (1) Atrial flutter: Status: Acute (2) Heart failure: Status: Acute Qualifiers: Heart failure type: diastolic Heart failure chronicity: acute on chronic Qualified Code(s): I50.33 - Acute on chronic diastolic (congestive) heart failure (3) Pneumonia: Status: Acute (4) COPD (chronic obstructive pulmonary disease): Status: Acute (5) Diabetes: Status: Acute (6) HTN (hypertension): Status: Acute Reason for Visit Reason for Visit: diff breathing Hospital Course Hospital Course Juan Thomas is a 66 year old male with PMH COPD on 3lpm at home, recently diagnosed heart failure at SNF, discharged from SNF 2 days ago, h/o necrotizing fascitis of right arm in Mar 2021 which required Tx to [facility] ID s/p multiple debridements, blood cx with strep spp at the time. States he had a prolonged admission course, then transferred to LTAC and eventually SNF and now discharged home 2 days ago. Presented to ER overnight with c/o? shortness of breath that started suddenly yesterday morning. no fever, cough. States he has been compl iant with all medications since his SNF discharge. Uses CPAP at home. Did not find any relief with CPAP use yesterday and presented to the ER. Here noted to be hypoxic with 02 sat low 80s. Improved on Bipap. Abg as noted below. CTA chest negative for PE. Shows possible pneumonia vs atelcatasis. Does not recall if he has ever had an echocardiogram. States he was clinically diagnosed with CHF and started on lasix recently. Does not recall dose. Has B/L LE edema. EKG additionally notes A futter/A fib with RVR, patient denies any past h/o being diagnosed with the same. HR ranging between 90-104 at this time. COVID PCR negative. Patient admitted to hospital for further evaluation and management of hypoxia. It is believed her symptoms are most likely secondary to acute on chronic diastolic heart failure exacerbated due to atrial fibrillation with rapid ventricular response. He was started on rate controlling medication and IV diuresis. He responded well to the treatment. Echocardiogram was done which showed an EF 55 to 60% with dilated LA. For admission there was some concerns for a possible pneumonia which ruled out with a negative chest imaging and procalcitonin. Patient has remained hemodynamically stable and afebrile off antibiotics. There was a concern for infection in the arm where he had necrotizing fasciitis for which upper limb ultrasound and CT scan were done which were negative for any acute abnormality but CT arm was consistent with arthritis of right shoulder with moderate-sized effusion. There are no concerns currently for infection. Blood cultures and urine culture during hospitalization has remained negative. Patient worked well with physical therapy. Safe discharge planning were discussed with patient and his family members and he is agreeable to go to SNF. He has been discharged hemodynamically stable condition to SNF with advised to follow-up with his primary care provider within next 1 week. Home oxygen evaluation has been requested prior to discharge. Physical Exam Narrative: General: No acute distress, AO x3, on 2 L nasal cannula HEENT: PERRLA, pupils bilaterally equal and reactive Chest: Bilateral bronchial breath sounds, fine crackles were present in lower zone bilaterally, equal good air entry bilaterally CVS: S1-S2 irregularly irregular, no murmurs, no tachycardia, no gallops, no rubs Abdomen: Soft, nontender, no organomegaly, bowel sounds present Neuro: No focal deficits, no facial deformity, AO x3, power 5/5 in all limbs Discharge Data Studies Completed and Pending Completed Studies During Hospitalization Category Date Time Status CT angio chest PE protcl [id number] Urgent Cat Scan 08/06/21 21:[address] shoulder RT wo con* [id number] Routine Cat Scan 08/08/21 10:57 Completed XR chest 1V portable [id number] Urgent Exams 08/06/21 20:34 [place] [id number] Routine Ultrasound 08/07/21 12:29 Completed CV. echo complete* [id number] Routine Ultrasound 08/07/21 06:36 Completed Pending at discharge Category Date Time Status Blood Culture Stat Lab 08/06/21 22:54 Results Sputum Culture and Gram Stain Routine Lab 08/07/21 02:06 Uncollected Radiology Impressions Chest X-Ray 08/06/21 20:34 IMPRESSION: Probable bilateral bronchitis and basilar atelectasis although a bilateral basilar pneumonitis cannot be excluded. Chest CTA 08/06/21 21:53 IMPRESSION: 1. There is no evidence for pulmonary emboli. 2. There are small bilateral pleural effusions. 3. Strandy opacities and consolidation is seen in the left lower lobe. Subtle ground-glass opacities are seen adjacent to the major fissure within the left upper lobe and minimal patchy and strandy opacities are seen in the right lung base. These findings may represent atelectasis although a infiltrate and pneumonia cannot be excluded within the left lower lobe. Shoulder CT 08/08/21 10:57 IMPRESSION: 1. Progressive narrowing and osseous destruction at the RIGHT glenohumeral joint since 03/23/2021. There are erosions with joint space narrowing and loss of the normal normalization. There is also a moderate size joint effusion. Differential includes septic arthritis and inflammatory arthritis. Consider rheumatoid but more likely infected joint. Extensive joint capsule thickening and air noted on a prior CT from 03/23/2021. The foci of air are no longer present but there has been progressive destruction of the glenohumeral joint. 2. Mild AC joint arthritis. Echocardiogram: CONCLUSIONS ?LV systolic function is normal with EF of 55-60% ?Diastolic function is indeterminate because of atrial?fibrillation ?Left atrium is dilated ?Mild mitral regurgitation ?Compared to prior echocardiogram from 01/20/2018, no significant?changes are noted ?Bora Gómez MD ?(Electronically Signed) ?Final Date:? ? ? 07 August 2021 ? 21:51 Laboratory Results WBC 9.1 10^3/uL (4.0-10.0) 08/10/21 03:40 RBC 3.52 10^6/uL (4.1-5.3) L 08/10/21 03:40 Hgb 8.6 g/dL (11.7-16.6) L 08/10/21 03:40 Hct 29.4 % (42.0-52.0) L 08/10/21 03:40 MCV 83.5 fl (80-94) 08/10/21 03:40 MCH 24.4 pg (28.0-34.0) L 08/10/21 03:40 MCHC 29.3 g/dL (30.0-36.0) L 08/10/21 03:40 RDW 14.5 % (12.1-15.1) 08/10/21 03:40 Plt Count 278 10^3/cmm (130-400) 08/10/21 03:40 MPV 9.7 fL (7.4-10.4) 08/10/21 03:40 Neut % (Auto) 60.7 % 08/10/21 03:40 Lymph % (Auto) 25.3 % 08/10/21 03:40 [place] % (Auto) 12.9 % 08/10/21 03:40 Eos % (Auto) 0.3 % 08/10/21 03:40 Baso % (Auto) 0.4 % 08/10/21 03:40 Neut # (Auto) 5.49 10^3/uL (1.8-7.7) 08/10/21 03:40 Lymph # (Auto) 2.3 10^3/uL (0.8-4.8) 08/10/21 03:40 [place] # (Auto) 1.2 10^3/uL (0.2-0.9) H 08/10/21 03:40 Eos # (Auto) 0.0 10^3/uL (0.0-0.8) 08/10/21 03:40 Baso # (Auto) 0.0 10^3/uL (0.0-0.1) 08/10/21 03:40 Nucleated RBC % (auto) 0 % 08/10/21 03:40 Nucleated RBCs # 0.0 /100WBC 08/10/21 03:40 D-Dimer 1.86 ug/mIFEU (0-0.59) H 08/06/21 20:37 Specimen Type Arterial 08/06/21 20:35 Sample Site Radial, left 08/06/21 20:35 ABG pH 7.41 (7.35-7.45) 08/06/21 20:35 ABG pCO2 51.0 mmHg (35-45) H 08/06/21 20:35 ABG pO2 101.0 mmHg (80.0-100.0) H 08/06/21 20:35 ABG HCO3 32.3 mmol/L (22-26) H 08/06/21 20:35 ABG Base Excess 6.7 mmol/L (-2.0-2.0) H 08/06/21 20:35 Matthew Test Pos 08/06/21 20:35 Hematocrit 27.7 % (42-52) L 08/06/21 20:35 O2 Delivery Device Nrb 08/06/21 20:35 O2 Liters/Min 15.0 % 08/06/21 20:35 FiO2 100.0 % 08/06/21 20:35 Director Construction Services ID Amauri 08/06/21 20:35 Sodium 136 mmol/L (136-145) 08/10/21 03:40 Potassium 4.4 mmol/L (3.5-5.1) 08/10/21 03:40 Chloride 98 mmol/L (98-107) 08/10/21 03:40 Carbon Dioxide 29 mmol/L (22-29) 08/10/21 03:40 Anion Gap 13.4 (5-19) 08/10/21 03:40 BUN 43 mg/dL (8-23) H 08/10/21 03:40 Creatinine 0.9 mg/dL (0.7-1.2) 08/10/21 03:40 GFR Calculation 84.4 mL/min (90-130) L 08/10/21 03:40 Glucose 95 mg/dL (65-115) 08/10/21 03:40 POC Glucose 168 mg/dL (70-110) H 08/10/21 12:02 Calculated Osmolality 293 mOsm/kg (285-295) 08/10/21 03:40 Lactic Acid 1.4 mmol/L (0.5-2.2) 08/06/21 20:37 Calcium 9.2 mg/dL (8.5-10.5) 08/10/21 03:40 Total Bilirubin 0.2 mg/dL (0.15-1.2) 08/10/21 03:40 AST 29 U/L (0-40) 08/10/21 03:40 ALT 18 U/L (0-41) 08/10/21 03:40 Alkaline Phosphatase 159 IU/L (40-130) H 08/10/21 03:40 Troponin T Baseline 42 ng/L (0-15) H 08/06/21 20:37 Troponin T 120 Minute 40.49 ng/L (0-15) H 08/06/21 22:54 Delta Troponin T -1.51 ABS# (0-10) L 08/06/21 22:54 Troponin T Hi Sens 6Hr 33.15 ng/L (0-15) H 08/07/21 05:32 Troponin T Hi Sens 6Hr Delta -8.85 ng/L (0-12) L 08/07/21 05:32 C-Reactive Protein 40.9 mg/L (0.0-4.9) H 08/06/21 20:37 NT-Pro-B Natriuret Pep 1499 pg/mL (0-125) H 08/06/21 20:37 Total Protein 7.4 g/dL (6.6-8.7) 08/10/21 03:40 Albumin 3.0 g/dL (3.5-5.2) L 08/10/21 03:40 Globulin 4.4 g/dL (1.3-4.6) 08/10/21 03:40 Procalcitonin 0.09 ng/mL (0-0.5) 08/06/21 20:37 TSH 0.21 uIU/mL (0.27-4.20) L 08/08/21 02:16 Free T4 1.07 ng/dL (0.82-1.77) 08/08/21 02:16 Free T3 1.8 PG/ML (2.0-4.4) L 08/08/21 02:16 Coronavirus 229E (PCR) Not detected (NOT DETECT) 08/06/21 21:05 SARS-CoV-2 (PCR) Not detected (NOT DETECT) 08/06/21 21:05 SARS-CoV-2 Ag (Rapid) Negative (Negative) 08/10/21 10:30 Vitals Last Vital Signs Temp 97.9 F 08/10/21 12:00 Pulse 101 H 08/10/21 12:00 Resp 18 08/10/21 12:00 BP 136/87 08/10/21 12:00 Pulse Ox 93 08/10/21 12:00 Discharge Plan Discharge Patient Disposition: Home Condition: Stable Prescriptions: New prednisone 20 mg Tablet 40 mg PO DAILY Qty: 3 0RF pantoprazole 40 mg Tablet,Delayed Release (Dr/Ec) 40 mg PO DAILY Qty: 30 0RF metoprolol tartrate 50 mg Tablet 75 mg PO BID@0900,2100 30 Days Qty: 90 0RF Eliquis 5 mg Tablet 5 mg PO BID@0900,2100 Qty: 60 0RF furosemide [Lasix] 40 mg tablet 40 mg PO DAILY Qty: 30 0RF Continued metformin 500 mg tablet 500 mg PO QAM 0RF sertraline 100 mg tablet 100 mg PO QAM 0RF clonazepam 1 mg tablet 0.5 mg PO BEDTIME PRN (Reason: Sleep) 0RF levothyroxine 50 mcg tablet 50 mcg PO QPM 0RF Novolog Flexpen U-100 Insulin 100 unit/mL (3 mL) insulin pen See Rx Instructions .ROUTE .COMPLEX 0RF Rx Instructions: sliding scale subcutaneously before meals Probiotic 1 cap PO DAILY 0RF Rx Instructions: for 14 days lisinopril 5 mg tablet 5 mg PO DAILY@0800 0RF acetaminophen 325 mg Tablet 650 mg PO Q6H PRN (Reason: Pain) 0RF ipratropium-albuterol 0.5 mg-3 mg(2.5 mg base)/3 mL Solution For Nebulization 3 ml INHALATION Q6H PRN (Reason: Shortness Of Breath) 0RF tamsulosin 0.4 mg Capsule 0.4 mg PO DAILY@0900 0RF gabapentin 300 mg Capsule 300 mg PO BID@08,20 0RF alum-mag hydroxide-simeth [Maalox] 200-200-20 mg/5 mL Suspension 30 ml PO Q4H PRN (Reason: Heartburn) 0RF Lantus Solostar U-100 Insulin 100 unit/mL (3 mL) Insulin Pen 45 unit SUBCUT BID 0RF melatonin 5 mg Tablet 5 mg PO BEDTIME PRN (Reason: Sleep) 0RF Belle-Bid 1 billion cell- 250 mg Tablet 2 tab PO BID@08,20 0RF Discontinued sulfamethoxazole-trimethoprim 800-160 mg tablet 1 tab PO Q12H 0RF Rx Instructions: rx filled 08/04/21 3d/s amoxicillin-pot clavulanate 875-125 mg tablet 1 tab PO BID 0RF Rx Instructions: rx filled 08/04/21 3d/s amlodipine 5 mg tablet 5 mg PO DAILY@0800 0RF Discharge Orders: Discharge Order (Routine); Ordered 08/10/21 Ordered By: Sascha Em Referrals: Rachel Bills MD [Primary Care Provider] - 2 weeks Discharge Diet: Cardiac and Diabetic Discharge Activity: Resume usual activity and Increase activity as tolerated Patient Instructions: Opioid Safety Activity Restrictions/Additional Instructions: Continue with fluid restriction up to 2 L. Do not take more than 2 g of salt daily. Take Lasix 40 mg oral daily. Repeat BMP in 1 week. Please follow-up with your primary care provider within next 2 weeks. Should consider follow-up with orthopedics within next 1 month for right shoulder arthritis. Discharge Attestations Time Spent in Discharge Care*: greater than 30 min Quality Metrics Clinical Quality Measures [ No reported AMI, CVA or VTE this stay] Coding Level of Care Code Acute [facility] note Diagnoses Atrial flutter I48.92 Heart failure I50.33 Heart failure type: diastolic Heart failure chronicity: acute on chronic Pneumonia J18.9 COPD (chronic obstructive pulmonary disease) J44.9 Diabetes E11.9 HTN (hypertension) I10
--- NOTE | 2021-08-10 14:06 | PC.NURSE ---
Report to Delisa at [facility] AT THIS TIME.
== END 2021-08-10 14:35 | disposition skilled nursing facility (03) | DRG 291 ==
LOC: ER 23:44 → MEDSURG 08-07 00:41
PROVIDERS: Admitting Provider Student in an Organized Health Care Education/Training Program; Emergency Provider Emergency Medicine; PCP Family Medicine; Visit Provider Student in an Organized Health Care Education/Training Program
DX: I11.0 Hypertensive heart disease with heart failure (principal); I50.33 Acute on chronic diastolic (congestive) heart failure; J96.21 Acute and chronic respiratory failure with hypoxia; J44.1 Chronic obstructive pulmonary disease with (acute) exacerbation; I48.91 Unspecified atrial fibrillation; Z99.89 Dependence on other enabling machines and devices; Z87.891 Personal history of nicotine dependence; E11.65 Type 2 diabetes mellitus with hyperglycemia; M19.011 Primary osteoarthritis, right shoulder; Z79.84 Long term (current) use of oral hypoglycemic drugs; Z79.4 Long term (current) use of insulin
CPT/HCPCS: 36415; 36416; 36600; 71045; 71275; 73200; 80053; 82803; 82962; 83605; 83880; 84145; 84439; 84443; 84481; 84484; 85025; 85378; 86140; 87040; 87426; 87635; 93005; 93306; 93971; 94640; 94660; 94664; 96372; 96374; 96375; 97116; 97162; 97530; 99291; J0696; J1650; J1815 ×2; J1885; J1940; J2920; J2930; J3490; J7512; J7626; Q0144; Q9967

== ENCOUNTER 2021-09-10 09:39 | Inpatient (IN) | payer MEDICARE, SELFPAY ==
[2021-09-10] VITALS (10 sets, daily range): BP systolic 111–130; BP diastolic 59–86; PULSE 88–119; RESP 13–28; TEMP 36.8–36.9; O2SAT 93–100; BMI 42.2; BMI 44.0
--- NOTE | 2021-09-10 10:11 | ECG_ITS ---
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 Measurements Intervals [place] Rate: 103 P: [place]: QRS: 10 QRSD: 97 T: 53 QT: 362 QTc: 475 Interpretive Statements ATRIAL FIBRILLATION WITH RAPID VENTRICULAR RESPONSE LOW QRS VOLTAGE IN PRECORDIAL LEADS [QRS DEFLECTION < 1.0 mV IN CHEST LEADS] ABNORMAL RHYTHM ECG Possible old anteroseptal Compared to ECG 08/07/2021 03:03:59 Low QRS voltage now present Electronically Signed On 09-10-2021 22:00:32 CDT by Rohit Mas M.D. [email or web address]
--- NOTE | 2021-09-10 10:11 | XRR_ITS ---
PROCEDURE INFORMATION: Exam: XR Chest Exam date and time: 09/10/2021 10:48 AM Age: 66 years old Clinical indication: Shortness of breath; Additional info: SOB TECHNIQUE: Imaging protocol: XR of the chest. Views: 1 view. Total images: 1 COMPARISON: CR (CHEST, ) 08/06/2021 8:57 PM FINDINGS: Lungs: Nonspecific left greater than right bibasilar opacities, favoring atelectasis or pneumonia. Pleural spaces: There is blunting of both costophrenic angles, suggestive of small pleural effusions. Heart/Mediastinum: Cardiomegaly. Bones/joints: Osseous structures are unchanged from the prior exam. XR/XR chest 1V portable [id number] IMPRESSION: 1. Cardiomegaly. 2. Nonspecific left greater than right bibasilar opacities, favoring atelectasis or pneumonia. 3. There is blunting of both costophrenic angles, suggestive of small pleural effusions.
--- NOTE | 2021-09-10 10:12 | W.ED.SOB ---
HPI - SOB/Dyspnea General: Chief Complaint: Shortness of Breath/Dyspnea Stated Complaint: RESP DISTRESS Time Seen by Provider: 09/10/21 09:56 History of Present Illness: HPI Narrative: 66-year-old with history of CHF and COPD presents with shortness of breath. States she recently was discharged from long-term care however for the last 3 to 4 days the shortness of breath has been worse. He is normally on 3-3.5 liters by nasal cannula but was saturating at 83% on this at home. He denies any chest pain. Denies any worsening lower extremity swelling. Denies any lower extremity pain. States that he previously had necrotizing fasciitis that required operation on his right upper extremity but denies any recent pain swelling erythema or rash. Review of Systems Narrative: - CONSTITUTIONAL: Denies weight loss, fever and chills. - HEENT: Denies changes in vision and hearing. - RESPIRATORY: As above - CV: Denies palpitations and CP. - GI: Denies abdominal pain, nausea, vomiting and diarrhea. - : Denies dysuria and urinary frequency. - MSK: Denies myalgia and joint pain. - SKIN: Denies rash and pruritus. - NEUROLOGICAL: Denies headache, weakness, numbness and syncope. - PSYCHIATRIC: Denies suicidal ideation [facility] ED PFSH: Medical History COPD (chronic obstructive pulmonary disease) Diabetes HTN (hypertension) Necrotizing fasciitis of shoulder region Social History Smoking and tobacco status: former smoker Alcohol intake: never Physical Exam Narrative: EXAM NARRATIVE: - GENERAL: Alert and oriented x 3. No acute distress. Well-nourished. - EYES: EOMI. Anicteric. - HENT: Atraumatic, no C-spine tenderness. Moist mucous membranes. No scleral icterus. No cervical lymphadenopathy. - LUNGS: Bilateral crackles. No accessory muscle use. Equal lung sounds bilaterally. No respiratory distress. - CARDIOVASCULAR: Regular rate and rhythm. No murmur. No JVD. - ABDOMEN: Soft, non-tender and non-distended. Negative CVA tenderness bilaterally, no rebound or guarding, negative Gonzalez sign. No palpable masses. - EXTREMITIES: No edema. Non-tender. Old surgical scars on right upper extremity. - SKIN: No rashes or lesions. Warm. - NEUROLOGIC: No meningismus or focal neurological deficits. CN II-XII grossly intact. - PSYCHIATRIC: Cooperative. Appropriate mood and affect. Course Vital Signs: Vital signs: Vital Signs Temperature 98.3 F 09/10/21 09:43 Pulse Rate 91 09/10/21 12:34 Respiratory Rate 23 H 09/10/21 12:34 Blood Pressure 127/86 09/10/21 12:34 Pulse Oximetry 98 09/10/21 12:34 MDM - SOB/Dyspnea Medical Decision Making 66-year-old presents due to shortness of breath. Does appear to be fluid overloaded and has crackles on his lungs. Improved with Lasix. Still requires 2 L by nasal cannula. States his Lasix dose was recently been up to 40 from 20 and then 40 twice daily abdomen 40 once a day. States despite this he still getting more more short of breath and overloaded. D-dimer is elevated but CTA does not reveal any signs of PE. Imaging is consistent with volume overload. EKG and troponins do not reveal any sign of acute ischemia or other acute abnormality. High-sensitivity troponin is elevated in the 30s but repeat is stable. He denies any chest pain. Remainder of lab work and imaging reviewed. Discussed with hospitalist and they agreed patient would benefit from admission. Patient admitted in stable condition. Further evaluation management per hospitalist team. Lab Data : 09/10/21 10:31 09/10/21 10:31 Labs/Radiology: Radiology Impressions Chest X-Ray 09/10/21 10:11 IMPRESSION: 1. Cardiomegaly. 2. Nonspecific left greater than right bibasilar opacities, favoring atelectasis or pneumonia. 3. There is blunting of both costophrenic angles, suggestive of small pleural effusions. Chest CTA 09/10/21 10:53 IMPRESSION: 1. Intra-abdominal ascites is present. 2. Small bilateral pleural effusions with compressive atelectasis. 3. No pulmonary artery embolism identified. 4. Cardiomegaly with pulmonary vascular congestion. 5. Nonspecific left basilar opacities, edema and/or pneumonia. Laboratory Results WBC 7.4 10^3/uL (4.0-10.0) 09/10/21 10:31 RBC 3.05 10^6/uL (4.1-5.3) L 09/10/21 10: Hgb 7.2 g/dL (11.7-16.6) L 09/10/21 10: Hct 25.1 % (42.0-52.0) L 09/10/21 10: MCV 82.3 fl (80-94) 09/10/21 10: MCH 23.6 pg (28.0-34.0) L 09/10/21: MCHC 28.7 g/dL (30.0-36.0) L 09/10/21 10: RDW 15.4 % (12.1-15.1) H 09/10/21 10: Plt Count 199 10^3/cmm (130-400) 09/10/21: MPV 9.9 fL (7.4-10.4) 09/10/21: Neut % (Auto) 64.1 % 09/10/21: Lymph % (Auto) 21.6 % 09/10/21: [place] % (Auto) 12.1 % 09/10/21: Eos % (Auto) 1.4 % 09/10/21: Baso % (Auto) 0.5 % 09/10/21: Neut # (Auto) 4.71 10^3/uL (1.8-7.7) 09/10/21: Lymph # (Auto) 1.6 10^3/uL (0.8-4.8) 09/10/21 10: [place] # (Auto) 0.9 10^3/uL (0.2-0.9) 09/10/21 10: Eos # (Auto) 0.1 10^3/uL (0.0-0.8) 09/10/21: Baso # (Auto) 0.0 10^3/uL (0.0-0.1) 09/10/21: Nucleated RBC % (auto) 0 % 09/10/21: Nucleated RBCs # 0.0 /100WBC 09/10/21 10: D-Dimer 2.36 ug/mIFEU (0-0.59) H 09/10/21 10: Specimen Type Venous 09/10/21 11:57 Matthew Test N/a 09/10/21 11:57 VBG pH 7.39 (7.32-7.42) 09/10/21 11:57 VBG pCO2 53.1 mmHg (41-51) H 09/10/21 11:57 VBG pO2 29.2 mmHg (25-40) 09/10/21 11:57 VBG HCO3 32.4 mmol/L (24-28) H 09/10/21 11:57 VBG Base Excess 6.7 mmol/L (-3.0-3.0) H 09/10/21 11:57 VBG Hematocrit 23.2 % (42-52) L 09/10/21 11:57 O2 Liters/Min 2.0 % 09/10/21 11:57 Mathematical Engineering Technician ID Clarrrro 09/10/21 11:57 Sodium 134 mmol/L (136-145) L 09/10/21 10:31 Potassium 4.2 mmol/L (3.5-5.1) 09/10/21 10:31 Chloride 96 mmol/L (98-107) L 09/10/21 10:31 Carbon Dioxide 30 mmol/L (22-29) H 09/10/21 10:31 Anion Gap 12.2 (5-19) 09/10/21 10:31 BUN 26 mg/dL (8-23) H 09/10/21 10:31 Creatinine 1.0 mg/dL (0.7-1.2) 09/10/21 10:31 GFR Calculation 74.8 mL/min (90-130) L 09/10/21 10:31 Glucose 198 mg/dL (65-115) H 09/10/21 10:31 Calculated Osmolality 288 mOsm/kg (285-295) 09/10/21 10:31 Calcium 8.8 mg/dL (8.5-10.5) 09/10/21 10:31 Total Bilirubin 0.3 mg/dL (0.15-1.2) 09/10/21 10:31 AST 19 U/L (0-40) 09/10/21 10:31 ALT 11 U/L (0-41) 09/10/21 10:31 Alkaline Phosphatase 173 IU/L (40-130) H 09/10/21 10:31 Troponin T Baseline 39 ng/L (0-15) H 09/10/21 10:31 Troponin T 120 Minute 39.02 ng/L (0-15) H 09/10/21 11:57 Delta Troponin T 0.02 ABS# (0-10) 09/10/21 11:57 NT-Pro-B Natriuret Pep 1030 pg/mL (0-125) H 09/10/21 10:31 Total Protein 7.1 g/dL (6.6-8.7) 09/10/21 10:31 Albumin 3.1 g/dL (3.5-5.2) L 09/10/21 10:31 Globulin 4.0 g/dL (1.3-4.6) 09/10/21 10:31 SARS-CoV-2 Ag (Rapid) Negative (Negative) 09/10/21 10:31 EKG Data EKG 1: Other EKG Comments: A. fib with RVR, rate of 103, no sign of acute ischemia or other acute abnormality. Discharge Plan Discharge Condition: Stable Prescriptions: No Action metformin 500 mg tablet 500 mg PO QAM 0RF sertraline 100 mg tablet 100 mg PO QAM 0RF clonazepam 1 mg tablet 0.5 mg PO BEDTIME PRN (Reason: Sleep) 0RF levothyroxine 50 mcg tablet 50 mcg PO QPM 0RF Novolog Flexpen U-100 Insulin 100 unit/mL (3 mL) insulin pen See Rx Instructions .ROUTE .COMPLEX 0RF Rx Instructions: sliding scale subcutaneously before meals Probiotic 1 cap PO DAILY 0RF Rx Instructions: for 14 days prednisone 20 mg Tablet 40 mg PO DAILY Qty: 3 0RF pantoprazole 40 mg Tablet,Delayed Release (Dr/Ec) 40 mg PO DAILY Qty: 30 0RF Eliquis 5 mg Tablet 5 mg PO BID@0900,2100 Qty: 60 0RF Lasix 40 mg tablet 40 mg PO DAILY Qty: 30 0RF lisinopril 5 mg tablet 5 mg PO DAILY@0800 0RF acetaminophen 325 mg Tablet 650 mg PO Q6H PRN (Reason: Pain) 0RF ipratropium-albuterol 0.5 mg-3 mg(2.5 mg base)/3 mL Solution For Nebulization 3 ml INHALATION Q6H PRN (Reason: Shortness Of Breath) 0RF tamsulosin 0.4 mg Capsule 0.4 mg PO DAILY@0900 0RF gabapentin 300 mg Capsule 300 mg PO BID@08,20 0RF alum-mag hydroxide-simeth 200-200-20 mg/5 mL Suspension 30 ml PO Q4H PRN (Reason: Heartburn) 0RF Lantus Solostar U-100 Insulin 100 unit/mL (3 mL) Insulin Pen 45 unit SUBCUT BID 0RF melatonin 5 mg Tablet 5 mg PO BEDTIME PRN (Reason: Sleep) 0RF Belle-Bid 1 billion cell- 250 mg Tablet 2 tab PO BID@,20 0RF Referrals: Rachel Bills MD [Primary Care Provider] - Coding Level of Care Code ED [employer] for Josh Gallego
[2021-09-10] MEDS: FUROsemide 10 mg/mL SDV 4mL 40 MG IVP ×2 (10:24→15:32)
[2021-09-10 10:36] LABS: Basophils % 0.5 %; Eosinophils # 0.1 10^3/uL (0.0-0.8); Eosinophils % 1.4 %; Hematocrit 25.1 % (42.0-52.0); Hemoglobin 7.2 g/dL (11.7-16.6); Lymphocytes # 1.6 10^3/uL (0.8-4.8); Lymphocytes % 21.6 %; Mean Corpuscular HGB Conc 28.7 g/dL (30.0-36.0); Mean Corpuscular Hemoglobin 23.6 pg (28.0-34.0); Mean Corpuscular Volume 82.3 fl (80-94); Mean Platelet Volume 9.9 fL (7.4-10.4); Monocytes # 0.9 10^3/uL (0.2-0.9); Monocytes % 12.1 %; Neutrophils # 4.71 10^3/uL (1.8-7.7); Neutrophils % 64.1 %; Nucleated Red Blood Cells % 0 %; Platelet Count 199 10^3/cmm (130-400); Red Blood Count 3.05 10^6/uL (4.1-5.3); Red Cell Distribution Width 15.4 % (12.1-15.1); White Blood Count 7.4 10^3/uL (4.0-10.0)
[2021-09-10 10:51] LABS: D Dimer 2.36 ug/mIFEU (0-0.59)
--- NOTE | 2021-09-10 10:53 | CTR_ITS ---
PROCEDURE INFORMATION: Exam: CTA Chest With Contrast Exam date and time: 09/10/2021 12:20 PM Age: 66 years old Clinical indication: Shortness of breath; Additional info: Pe TECHNIQUE: Imaging protocol: Computed tomographic angiography of the chest with contrast. 3D rendering (Not supervised by radiologist): MIP and/or 3D reconstructed images were created by the technologist. Total images: 863 Radiation optimization: All CT scans at this facility use at least one of these dose optimization techniques: automated exposure control; mA and/or kV adjustment per patient size (includes targeted exams where dose is matched to clinical indication); or iterative reconstruction. Contrast material: OMNIPAQUE 350; Contrast volume: 83 ml; Contrast route: INTRAVENOUS (IV); COMPARISON: CT angio chest PE protcl [id number] 08/06/2021 10:43 PM RADIATION DOSE METRICS: Total DLP (mGy-cm): 989.28 FINDINGS: Pulmonary arteries: Pulmonary artery evaluation of good technical quality with no pulmonary artery embolism identified. Pulmonary vascular congestion. Aorta: Unremarkable. No aortic aneurysm. No aortic dissection. Other arteries: Mild atherosclerotic disease is evident. Lungs: Compressive atelectasis of the lungs. Nonspecific left basilar opacities, edema and/or pneumonia. Pleural spaces: Small bilateral pleural effusions are present. Heart: There is severe coronary arterial calcification present. Cardiomegaly. Lymph nodes: Numerous mildly prominent mediastinal lymph nodes felt to be reactive. Calcified mediastinal and hilar nodes noted. Intraperitoneal space: Intra-abdominal ascites is present. Bones/joints: Old rib fractures are evident. Soft tissues: Unremarkable. CT/CT angio chest PE protcl [id number] IMPRESSION: 1. Intra-abdominal ascites is present. 2. Small bilateral pleural effusions with compressive atelectasis. 3. No pulmonary artery embolism identified. 4. Cardiomegaly with pulmonary vascular congestion. 5. Nonspecific left basilar opacities, edema and/or pneumonia.
[2021-09-10 11:08] LABS: SARS Covid-2 Antigen Negative (Negative)
[2021-09-10 11:10] LABS: Troponin(5th) Baseline 39 ng/L (0-15)
[2021-09-10 11:20] LABS: Alanine Aminotransferase 11 U/L (0-41); Albumin Level 3.1 g/dL (3.5-5.2); Alkaline Phosphatase 173 IU/L (40-130); Anion Gap 12.2 (5-19); Aspartate Amino Transferase 19 U/L (0-40); Blood Urea Nitrogen 26 mg/dL (8-23); Calcium 8.8 mg/dL (8.5-10.5); Carbon Dioxide 30 mmol/L (22-29); Chloride 96 mmol/L (98-107); Glomerular Filtration Rate 74.8 mL/min (90-130); Glucose 198 mg/dL (65-115); NT Pro B Type Natriuretic Pept 1030 pg/mL (0-125); Osmolality Calculated 288 mOsm/kg (285-295); Potassium 4.2 mmol/L (3.5-5.1); Sodium 134 mmol/L (136-145); Total Bilirubin 0.3 mg/dL (0.15-1.2); Total Protein 7.1 g/dL (6.6-8.7)
[2021-09-10 12:19] LABS: Base Excess VBG 6.7 mmol/L (-3.0-3.0); Blood Gas Sample Type Venous; HCO3 VBG 32.4 mmol/L (24-28); PCO2 VBG 53.1 mmHg (41-51); PO2 VBG 29.2 mmHg (25-40); Venous Blood Gas Hematocrit 23.2 % (42-52); pH VBG 7.39 (7.32-7.42)
[2021-09-10 12:24] LABS: Troponin 5 2HR 39.02 ng/L (0-15)
[2021-09-10 12:34] LABS: Troponin 5 2HR Delta 0.02 ABS# (0-10)
[2021-09-10] MEDS: iodixanol 320 mg/mL 100mL Btl IV (13:01)
--- NOTE | 2021-09-10 14:00 | PM.HP ---
Providers/Chief Complaint Admitting Physician: Evan Stock DO Primary Care Provider: Rachel Bills MD Chief Complaint: RESP DISTRESS History of Present Illness Juan Thomas is a 66 year old male who presented to ER with wosening dyspnea and leg swelling. was recently discharged from SNF and has been home a few days when symptoms started. He has a history of Atrial fibrillation and COPD. Was recently treated for sepsis last march and has been in/out of hospital and rehab since that time. He takes eliquis for chronic atrial fibrillation. In ER today he was noted to be in respiratory distress and tachypneic, tachycardic. EKG demonstrated A-fib with rate into the 100's. Labs noted anemia, which is chronic for the patient. He had an elevatd D-dimer with negative CT for PE. CXR and CT both concerning for fluid overload. BNP was elevated to 1030. Troponin was mildly elevated with negative delta. Received lasix in the ER x 1 dose today IV. Admitted to Med-Surg for inpatient managment. Review of Systems General: Reports: 10 or more systems reviewed and unremarkable except in HPI and below Const: Reports: other (Denies recent illness. ); Denies: fever(s) or chills Eyes: Denies: change in vision or eye discharge ENMT: Denies: throat pain or oral sores Card: Reports: edema; Denies: chest pain or palpitations Resp: Reports: dyspnea; Denies: productive cough, non-productive cough or wheezing GI: Denies: abdominal pain, nausea, vomiting, diarrhea or constipation : Denies: dysuria or urinary frequency Musc: Denies: joint pain or joint swelling Skin/Breast: Denies: rash or sores Neuro: Denies: headache(s), weakness in extremities or sensory changes Psych: Denies: anxiety or depression Endo: Denies: polyuria or polydipsia Keshav/Lymph: Denies: easy bruising Medications/Allergies Home Medications Medication Instructions Recorded Confirmed Last Taken Type lisinopril 5 mg tablet 5 mg PO DAILY@0800 03/23/21 08/07/21 Unknown History acetaminophen 325 mg tablet 650 mg PO Q6H PRN 06/19/21 08/07/21 Unknown History aluminum-mag hydroxide-simethicone 30 ml PO Q4H PRN 06/19/21 08/07/21 Unknown History 200 mg-200 mg-20 mg/5 mL oral susp gabapentin 300 mg capsule 300 mg PO BID@08,20 06/19/21 08/07/21 Unknown History insulin glargine 100 unit/mL (3 45 unit SUBCUT BID 06/19/21 08/07/21 Unknown History mL) subcutaneous pen (Lantus Solostar U-100 Insulin) ipratropium 0.5 mg-albuterol 3 mg 3 ml INHALATION Q6H PRN 06/19/21 08/07/21 Unknown History (2.5 mg base)/3 mL nebulization soln tamsulosin 0.4 mg capsule 0.4 mg PO DAILY@0900 06/19/21 08/07/21 Unknown History clonazepam 1 mg tablet 0.5 mg PO BEDTIME PRN 08/07/21 08/07/21 Unknown History insulin aspart U-100 100 unit/mL See Rx Instructions .ROUTE .COMPLEX 08/07/21 08/07/21 Unknown History (3 mL) subcutaneous pen (Novolog Flexpen U-100 Insulin aspart) levothyroxine 50 mcg tablet 50 mcg PO QPM 08/07/21 08/07/21 Unknown History metformin 500 mg tablet 500 mg PO QAM 08/07/21 08/07/21 Unknown History sertraline 100 mg tablet 100 mg PO QAM 08/07/21 08/07/21 Unknown History apixaban 5 mg tablet (Eliquis) 5 mg PO BID@0900,2100 #60 tab 08/10/21 Unknown Rx furosemide 40 mg tablet (Lasix) 40 mg PO DAILY #30 tab 08/10/21 Unknown Rx pantoprazole 40 mg tablet,delayed 40 mg PO DAILY #30 tab 08/10/21 Unknown Rx release Lactobacillus acidophilus 5,000 mmu cells PO BID 09/10/21 09/10/21 09/09/21 History (Acidophilus) trazodone 150 mg tablet 150 mg PO BEDTIME 09/10/21 09/10/21 09/09/21 History Allergies Allergy/AdvReac Type Severity Reaction Status Date / Time No Known Allergies Allergy Verified 08/07/21 09:28 PFSH Acute PFSH: Medical History (Updated 09/10/21 @ 14:14 by Evan Stock DO) COPD (chronic obstructive pulmonary disease) Diabetes HTN (hypertension) Necrotizing fasciitis of shoulder region Social History Smoking and tobacco status: former smoker Alcohol intake: never Vitals/I&O/Wt Last Vital Signs Temp 98.3 F 09/10/21 09:43 Pulse 97 09/10/21 13:18 Resp 28 H 09/10/21 13:18 BP 120/67 09/10/21 13:18 Pulse Ox 93 09/10/21 13:18 Weight last 48 hrs Weight 320 lb Physical Exam Const: COMMON NORMALS: no acute distress and patient oriented x3 NUTRITIONAL APPEARANCE: obese HENMT: COMMON NORMALS: normocephalic and atraumatic EXTERNAL EAR: Yes external ears normal MOUTH: Normal oral and palatal mucosa present Eye: COMMON NORMALS: Equal, round and reactive pupils present, EOMs intact bilaterally and conjunctivae normal CONJUNCTIVA: Yes conjunctivae normal Neck/C-Spine: COMMON NORMALS: full ROM GENERAL: Yes JVD Resp: EFFORT & INSPECTION: Yes tachypneic AUSCULTATION: crackles Laterality: bilateral (Throughout the lung platt. ) Cardio: COMMON NORMALS: regular rate RHYTHM: abnormal rhythm irregularly irregular HEART SOUNDS: no gallops and no murmurs GI: COMMON NORMALS: Normal to inspection, nondistended, normoactive bowel sounds present, Soft to palpation and non-tender Back/Pelvis: COMMON NORMALS: no CVA tenderness Extremity: GENERAL: Yes edema (2+ LE edema) Skin: COMMON NORMALS: no rashes or lesions noted Data : 09/10/21 10:31 09/10/21 10:31 A&P Assessment and plan (1) Dyspnea: Status: Acute (2) Atrial fibrillation: Status: Acute (3) Elevated troponin: Status: Acute (4) Normocytic anemia: Status: Acute (5) Hyponatremia: Status: Acute (6) HTN (hypertension): Status: Acute (7) Diabetes mellitus type 2, uncontrolled, with complications: Status: Acute (8) Diabetic peripheral neuropathy associated with type 2 diabetes mellitus: Status: Acute (9) Acquired hypothyroidism: Status: Acute (10) GERD without esophagitis: Status: Acute (11) Anxiety and depression: Status: Acute (12) BPH (benign prostatic hyperplasia): Status: Acute Plan 66 y/o M admitted for worsening dyspnea and worsening edema with history of A-fib. - Admit to Med/Surg for inpatient monitoring and treatment. - history of COPD. Previous diagnosis of Diastolic heart failure. 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 - CXR, CT today demonstrate fluid overload and compressive atelectasis with pleural effusions. Exam with diffuse crackles and BLE edema. EKG demonstrates Atrial fibrillation with RVR - rate at 103. He did have recent echo one month ago which showed EF at 55-60%. - Troponin elevated with negative delta. Negative D-Dimer. He does have elevated trop at baseline, likely from volume overload vs. cardiac strain. CT negative for PE. - Discussed case with cardiology who has agreed to see the patient. Appreciate their recommendations. - Lasix 40mg IV BID. - Continue home eliquis for atrial fibrillation. - Telemetry on floor. - Strict I/O's and daily weights. - 2L fluid restriction. - Will have PT to eval and treat for decreased strength. - Will check anemia panel as he does have chronic anemia. Hgb today is at 7.2 - SCD's and Eliquis for DVT PPx. - History of GERD on protonix. Will continue daily for GI PPx. - Recheck labs in a.m. including TSH, anemia panel, A1c, lipid panel. He does not appear to be on statin at this time. - Continue other home meds for chronic medical illnesses. 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
[2021-09-10 17:26] LABS: Glucose Point of Care 194 mg/dL (70-110)
[2021-09-10 17:27] LABS: Troponin 5 6HR 44.58 ng/L (0-15)
[2021-09-10 17:31] LABS: Troponin 5 6HR Delta 5.58 ng/L (0-12)
[2021-09-10] MEDS: levothyroxine 50 mcg Tablet PO (17:44)
--- NOTE | 2021-09-10 18:05 | PM.CONSULT ---
Providers/Reason For Consult Consulting Physician/Specialty*: KEMI Mas MD/cardiology Reason for Consult*: Atrial fibrillation/CHF Requesting Physician: Dr. Stock Attending Physician: Evan Stock DO Primary Care Provider: Rachel Bills MD History of Present Illness History of Present Illness Juan Thomas is a 66 year old male, is admitted to hospital through the emergency room, where he presented with complaints of progressive shortness of breath. This patient has a history of hypertension, type 2 diabetes, COPD, sleep apnea and a recent prolonged , atrial fibrillation, diastolic heart failure has baseline shortness of breath and was on 3 L of oxygen by nasal cannula. For the last few days, his shortness of breath has been getting worse. He was finding extremely difficult to move around without getting into respiratory distress. He did not have any chest pain or chest tightness. No fever or chills. No severe cough. He has some swelling of the lower extremities which is somewhat chronic with no significant worsening. No other associated symptoms. Patient has been in and out of hospitals in the emergency room several times in the recent past. In March of last year, he presented to the hospital with pain and swelling of the right shoulder and shortness of breath. He was diagnosed with necrotizing fasciitis of the right shoulder area. At that time he was transferred to the [facility] in [facility]. He was in the ICU for up almost 2 months. Currently patient, he was on a ventilator and then he subsequently underwent tracheostomy. According the patient, he almost spent 2 months in the ICU/hospital. He also had multiple surgical intervention for the fasciitis, total of 7?. From the hospital, [facility] was in [facility] [place] [facility] for a total of 4 months or so. He was admitted to this hospital in August when he presented with shortness of breath. He had some features of bronchitis/pneumonia. He also had evidence of heart failure. He was treated with IV antibiotics, diuretics and other symptomatic measures. He was discharged home in stable condition. He might have developed atrial fibrillation during his prolonged hospital stay. Apparently the patient never had atrial fibrillation prior to March of last year. He is currently on long-term oral anticoagulation. He was found to be anemic with a hemoglobin around 8 during his last hospital admission. Today the hemoglobin was 7.2. Patient is any hematemesis or melena. Normal ejection fraction by echocardiogram in August. He has no history for coronary artery disease or myocardial infarction. In his knowledge, he never had any ischemia work-up. He denies any history of chest pain. Review of Systems Narrative: CONSTITUTIONAL: No fever or chills. Has been having feeling of weakness and shortness of breath for the last several months EYES: No blurring of vision or other visual disturbances lately. ENT: No hoarseness of voice, auditory disturbances or sore throat. CARDIOVASCULAR: As mentioned above. RESPIRATORY: COPD/sleep apnea GASTROINTESTINAL: No hematemesis or melena. GENITOURINARY: No dysuria or hematuria. INTEGUMENTARY: Necrotizing fasciitis as mentioned above NEURO: History of anxiety disorder PSYCHIATRIC: No history of psychosis or major depression. HEMATOLOGIC: Iron deficiency anemia ENDOCRINE: Type 2 diabetes MUSCULOSKELETAL: No recent joint pain or swelling. ALLERGY/IMMUNOLOGY: As mentioned above. Medications/Allergies Home Medications Medication Instructions Recorded Confirmed Last Taken Type lisinopril 5 mg tablet 5 mg PO DAILY@0800 03/23/21 09/10/21 09/09/21 History acetaminophen 325 mg tablet 650 mg PO Q6H PRN 06/19/21 09/10/21 Unknown History aluminum-mag hydroxide-simethicone 30 ml PO Q4H PRN 06/19/21 09/10/21 Unknown History 200 mg-200 mg-20 mg/5 mL oral susp gabapentin 300 mg capsule 300 mg PO BID@08,20 06/19/21 09/10/21 09/09/21 History insulin glargine 100 unit/mL (3 25 unit SUBCUT BID 06/19/21 09/10/21 09/09/21 History mL) subcutaneous pen (Lantus Solostar U-100 Insulin) ipratropium 0.5 mg-albuterol 3 mg 3 ml INHALATION Q6H PRN 06/19/21 09/10/21 Unknown History (2.5 mg base)/3 mL nebulization soln tamsulosin 0.4 mg capsule 0.4 mg PO DAILY@0900 06/19/21 09/10/21 09/09/21 History clonazepam 1 mg tablet 0.5 mg PO BEDTIME PRN 08/07/21 09/10/21 09/09/21 History insulin aspart U-100 100 unit/mL See Rx Instructions .ROUTE .COMPLEX 08/07/21 09/10/21 Unknown History (3 mL) subcutaneous pen (Novolog Flexpen U-100 Insulin aspart) levothyroxine 50 mcg tablet 50 mcg PO QPM 08/07/21 09/10/21 09/09/21 History metformin 500 mg tablet 500 mg PO QAM 08/07/21 09/10/21 09/09/21 History sertraline 100 mg tablet 100 mg PO QAM 08/07/21 09/10/21 09/09/21 History apixaban 5 mg tablet (Eliquis) 5 mg PO BID@0900,2100 #60 tab 08/10/21 09/10/21 09/09/21 Rx furosemide 40 mg tablet (Lasix) 40 mg PO DAILY #30 tab 08/10/21 09/10/21 09/09/21 Rx pantoprazole 40 mg tablet,delayed 40 mg PO DAILY #30 tab 08/10/21 09/10/21 09/09/21 Rx release Lactobacillus acidophilus 5,000 mmu cells PO BID 09/10/21 09/10/21 09/09/21 History (Acidophilus) trazodone 150 mg tablet 150 mg PO BEDTIME 09/10/21 09/10/21 09/09/21 History Allergies Allergy/AdvReac Type Severity Reaction Status Date / Time No Known Allergies Allergy Verified 08/07/21 09:28 Current Medications Generic Name Dose Route Start Last Admin Trade Name Freq PRN Reason Stop Dose Admin Furosemide 40 mg 09/10/21 14:30 09/10/21 15:32 Furosemide 10 Mg/Ml Sdv 4ml IVP 40 mg Q12H ARMANDO Administration Levothyroxine Sodium 50 mcg 09/10/21 18:00 09/10/21 17:44 Levothyroxine 50 Mcg Tablet PO 50 mcg QPM ARMANDO Administration PFSH Acute PFSH: Medical History COPD (chronic obstructive pulmonary disease) Diabetes HTN (hypertension) Necrotizing fasciitis of shoulder region Social History Smoking and tobacco status: former smoker Alcohol intake: never Vitals/I&O/Wt Last Vital Signs Temp 98.3 F 09/10/21 09:43 Pulse 92 09/10/21 15:05 Resp 13 04/10/22 15:05 BP 130/73 09/10/21 15:05 Pulse Ox 97 09/10/21 15:05 09/10/21 09/10/21 09/10/21 06:59 14:59 22:59 Intake Total 240 / 240 Output Total 400 / 400 Balance -160 / -160 Weight last 48 hrs Weight 334 lb Weight 320 lb Physical Exam Narrative: GENERAL: The patient is alert and oriented times three. Moderate respiratory distress especially when he tries to move in the bed HEENT: Moderate pallor. No, icterus or lymphadenopathy. The pupils are symmetrical oral cavity: There are no mucous membrane lesions. Funduscopic examination: The fundus is not visualized. NECK: Trachea appears to be central. No masses noted. No JVD or thyromegaly appreciated. No carotid bruit. RESPIRATORY: Chest is symmetrical. No intercostals muscle retraction or any accessory muscle activation. There is no chest wall tenderness. Breath sounds are heard bilaterally. Patient is depressed at the bases coarse crackles and occasional expiratory wheezes BREASTS: Deferred. HEART: The PMI could not be palpated. No palpable precordial events. The first heart sound is variable. Second heart sound is normal no S3 or S4 heard. No pericardial rub or any click heard. ABDOMEN: Abdomen is obese. No vessel pulsations or distention. No tenderness. No organomegaly appreciated. No abdominal bruit. Bowel sounds are normally heard. : Deferred. RECTAL: Deferred. LYMPHATIC: No lymphadenopathy noted in the neck or groin. EXTREMITIES: 1-2+ edema both lower extremities. No cyanosis. Peripheral pulses are palpable and fairly good volume and amplitude MUSCULOSKELETAL: No acute joint deformities or swelling. SKIN: The long scar in the right shoulder area appears to have healed fairly well NEUROPSYCHIATRIC: The patient is alert and oriented x3. Appears to be in a good mood. The higher functions are grossly within normal limits. No tremors or rigidity noted. Data : 09/10/21 18:55 09/10/21 10:31 Other Labs: Laboratory Last Values WBC 7.4 10^3/uL (4.0-10.0) 09/10/21 10:31 RBC 3.05 10^6/uL (4.1-5.3) L 09/10/21 10:31 Hgb 7.2 g/dL (11.7-16.6) L 09/10/21 10: Hct 25.1 % (42.0-52.0) L 09/10/21: MCV 82.3 fl (80-94) 09/10/21 10: MCH 23.6 pg (28.0-34.0) L 09/10/21 10: MCHC 28.7 g/dL (30.0-36.0) L 09/10/21: RDW 15.4 % (12.1-15.1) H 09/10/21 10: Plt Count 199 10^3/cmm (130-400) 09/10/21: MPV 9.9 fL (7.4-10.4) 09/10/21: Neut % (Auto) 64.1 % 09/10/21: Lymph % (Auto) 21.6 % 09/10/21: [place] % (Auto) 12.1 % 09/10/21: Eos % (Auto) 1.4 % 09/10/21 10: Baso % (Auto) 0.5 % 09/10/21 10: Neut # (Auto) 4.71 10^3/uL (1.8-7.7) 09/10/21: Lymph # (Auto) 1.6 10^3/uL (0.8-4.8) 09/10/21 10: [place] # (Auto) 0.9 10^3/uL (0.2-0.9) 09/10/21 10: Eos # (Auto) 0.1 10^3/uL (0.0-0.8) 09/10/21: Baso # (Auto) 0.0 10^3/uL (0.0-0.1) 09/10/21: Nucleated RBC % (auto) 0 % 09/10/21: Nucleated RBCs # 0.0 /100WBC 09/10/21 10: D-Dimer 2.36 ug/mIFEU (0-0.59) H 09/10/21 10:31 Specimen Type Venous 09/10/21 11:57 Matthew Test N/a 09/10/21 11:57 VBG pH 7.39 (7.32-7.42) 09/10/21 11:57 VBG pCO2 53.1 mmHg (41-51) H 09/10/21 11:57 VBG pO2 29.2 mmHg (25-40) 09/10/21 11:57 VBG HCO3 32.4 mmol/L (24-28) H 09/10/21 11:57 VBG Base Excess 6.7 mmol/L (-3.0-3.0) H 09/10/21 11:57 VBG Hematocrit 23.2 % (42-52) L 09/10/21 11:57 O2 Liters/Min 2.0 % 09/10/21 11:57 Lace Finisher ID Clarrrro 09/10/21 11:57 Sodium 134 mmol/L (136-145) L 09/10/21 10:31 Potassium 4.2 mmol/L (3.5-5.1) 09/10/21 10:31 Chloride 96 mmol/L (98-107) L 09/10/21 10:31 Carbon Dioxide 30 mmol/L (22-29) H 09/10/21 10:31 Anion Gap 12.2 (5-19) 09/10/21 10:31 BUN 26 mg/dL (8-23) H 09/10/21 10:31 Creatinine 1.0 mg/dL (0.7-1.2) 09/10/21 10:31 GFR Calculation 74.8 mL/min (90-130) L 09/10/21 10:31 Glucose 198 mg/dL (65-115) H 09/10/21 10:31 POC Glucose 194 mg/dL (70-110) H 09/10/21 17:08 Calculated Osmolality 288 mOsm/kg (285-295) 09/10/21 10:31 Calcium 8.8 mg/dL (8.5-10.5) 09/10/21 10:31 Total Bilirubin 0.3 mg/dL (0.15-1.2) 09/10/21 10:31 AST 19 U/L (0-40) 09/10/21 10:31 ALT 11 U/L (0-41) 09/10/21 10:31 Alkaline Phosphatase 173 IU/L (40-130) H 09/10/21 10:31 Troponin T Baseline 39 ng/L (0-15) H 09/10/21 10:31 Troponin T 120 Minute 39.02 ng/L (0-15) H 09/10/21 11:57 Delta Troponin T 0.02 ABS# (0-10) 09/10/21 11:57 Troponin T Hi Sens 6Hr 44.58 ng/L (0-15) H 09/10/21 16:40 Troponin T Hi Sens 6Hr Delta 5.58 ng/L (0-12) 09/10/21 16:40 NT-Pro-B Natriuret Pep 1030 pg/mL (0-125) H 09/10/21 10:31 Total Protein 7.1 g/dL (6.6-8.7) 09/10/21 10:31 Albumin 3.1 g/dL (3.5-5.2) L 09/10/21 10:31 Globulin 4.0 g/dL (1.3-4.6) 09/10/21 10:31 SARS-CoV-2 Ag (Rapid) Negative (Negative) 09/10/21 10:31 EKG 1: My Interpretation: Atrial fibrillation with a rapid ventricular rate of 103 bpm. Poor R wave progression. Features suggestive of old anteroseptal myocardial infarction. Nonspecific T wave changes. EKG computer-generated impression: Chest X-Ray 09/10/21 10:11 IMPRESSION: 1. Cardiomegaly. 2. Nonspecific left greater than right bibasilar opacities, favoring atelectasis or pneumonia. 3. There is blunting of both costophrenic angles, suggestive of small pleural effusions. Chest CTA 09/10/21 10:53 IMPRESSION: 1. Intra-abdominal ascites is present. 2. Small bilateral pleural effusions with compressive atelectasis. 3. No pulmonary artery embolism identified. 4. Cardiomegaly with pulmonary vascular congestion. 5. Nonspecific left basilar opacities, edema and/or pneumonia. Echocardiogram on 08/07/2021 LV systolic function is normal with EF of 55-60% ?Diastolic function is indeterminate because of atrial ?fibrillation ?Left atrium is dilated ?Mild mitral regurgitation ?Compared to prior echocardiogram from 01/20/2018, no significant ?changes are noted A&P Assessment and plan (1) Acute on chronic diastolic (congestive) heart failure: Etiology could be multifactorial. Anemia, COPD exacerbation, atrial fibrillation, etc. are contributing factors. Patient may be carefully treated with IV diuretics. Status: Acute (2) Atrial fibrillation with rapid ventricular response: Patient's heart rate is fairly under control now. Because of the severe anemia, the rapid ventricular rate could be a compensatory mechanism. At this point, I would be focusing more on correcting the anemia and treating the underlying cause. Status: Acute (3) Hypochromic microcytic anemia: Patient may benefit from blood transfusion to keep the hemoglobin around 9-10. Anemia work-up as per the primary. Status: Acute (4) COPD exacerbation: Patient has a history of sleep apnea. Management as per the primary. Status: Acute (5) Diabetes mellitus type 2, uncontrolled, with complications: Aggressive management be appropriate. Status: Acute (6) HTN (hypertension): The blood pressure is fairly under control. Status: Acute Plan Agree with IV Lasix 40 mg every 12 hours. Once respiratory status is stable, we may consider doing a myocardial perfusion imaging to rule out any underlying coronary ischemia. Based on the patient's clinical progress, further recommendations will be made. Thank you for the opportunity to eval this patient and make these recommendations Consult Attestations Medical Necessity Statement: Patient requires continued hospital stay for close monitoring and further management Coding Level of Care Code Acute Trial [employer] Judge for [facility] Fwd History Detailed Exam Detailed Medical Decision Making High Complexity Diagnoses Acute on chronic diastolic (congestive) heart failure I50.33 Atrial fibrillation with rapid ventricular response I48.91 COPD exacerbation J44.1 Diabetes mellitus type 2, uncontrolled, with complications HTN (hypertension) I10 Hypochromic microcytic anemia D50.9 Time Spent (min) 70
[2021-09-10 19:05] LABS: Hematocrit 25.2 % (42.0-52.0); Hemoglobin 7.4 g/dL (11.7-16.6)
[2021-09-10] MEDS: apixaban 5 mg Tablet PO (20:23)
[2021-09-10] MEDS: gabapentin 300 mg Capsule PO (20:23)
[2021-09-10] MEDS: trazodone 150 mg Tablet PO (21:25)
[2021-09-10] MEDS: insulin glargine 100 units/1 mL 45 UNIT SUBCUT (21:25)
[2021-09-10] MEDS: CLONazepam 1 mg Tablet PO (21:25)
[2021-09-11] VITALS (23 sets, daily range): BP systolic 108–163; BP diastolic 52–86; PULSE 79–116; RESP 16–20; TEMP 36.3–37.1; O2SAT 91–99
[2021-09-11] MEDS: FUROsemide 10 mg/mL SDV 4mL 40 MG IVP ×3 (02:40→15:05)
[2021-09-11 05:46] LABS: Anion Gap 11.9 (5-19); Blood Urea Nitrogen 23 mg/dL (8-23); Calcium 8.9 mg/dL (8.5-10.5); Carbon Dioxide 29 mmol/L (22-29); Chloride 98 mmol/L (98-107); Glomerular Filtration Rate 74.8 mL/min (90-130); Glucose 171 mg/dL (65-115); Osmolality Calculated 288 mOsm/kg (285-295); Potassium 3.9 mmol/L (3.5-5.1); Sodium 135 mmol/L (136-145); Thyroid Stimulating Hormone 0.67 uIU/mL (0.27-4.20)
[2021-09-11 06:07] LABS: Estmated Average Glucose 151; Hemoglobin A1C 6.9 % (4.0-6.0)
[2021-09-11 06:09] LABS: Chol HDL Ratio 3.27 mg/dL (1.0-5.00); Cholesterol 108 mg/dL (0-200); Ferritin 40 ng/mL (30-400); HDL Cholesterol 33 mg/dL (60-100); Iron 18 ug/dL (59-158); LDL Cholesterol Calculated 61 mg/dL (50-129); LDL HDL Ratio 1.85 RATIO (0.00-3.22); Percent Saturation 5.2 % (20-50); Total Iron Binding Capacity 342 mcg/dl; Transferrin 308 mg/dL (200-360); Triglycerides 69 mg/dL (0-150); Unsaturated Iron Binding 324 ug/dL (112-347)
[2021-09-11] MEDS: metformin 500 mg Tablet PO (06:13)
[2021-09-11] MEDS: sertraline 100 mg Tablet PO (06:13)
[2021-09-11 06:25] LABS: Glucose Point of Care 220 mg/dL (70-110)
[2021-09-11 06:26] LABS: Glucose Point of Care 185 mg/dL (70-110)
[2021-09-11 06:43] LABS: Basophils % 0.3 %; Eosinophils # 0.1 10^3/uL (0.0-0.8); Eosinophils % 2.1 %; Hematocrit 23.4 % (42.0-52.0); Hemoglobin 6.8 g/dL (11.7-16.6); Lymphocytes # 1.3 10^3/uL (0.8-4.8); Lymphocytes % 20.4 %; Mean Corpuscular HGB Conc 29.1 g/dL (30.0-36.0); Mean Corpuscular Hemoglobin 23.7 pg (28.0-34.0); Mean Corpuscular Volume 81.5 fl (80-94); Mean Platelet Volume 10.1 fL (7.4-10.4); Monocytes # 0.8 10^3/uL (0.2-0.9); Monocytes % 13.4 %; Neutrophils # 3.91 10^3/uL (1.8-7.7); Neutrophils % 63.3 %; Nucleated Red Blood Cells % 0 %; Platelet Count 189 10^3/cmm (130-400); Red Blood Count 2.87 10^6/uL (4.1-5.3); Red Cell Distribution Width 15.6 % (12.1-15.1); White Blood Count 6.2 10^3/uL (4.0-10.0)
[2021-09-11] MEDS: lisinopril 5 mg Tablet PO (07:44)
[2021-09-11] MEDS: tamsulosin 0.4 mg Capsule PO (07:44)
[2021-09-11] MEDS: apixaban 5 mg Tablet PO (07:44)
[2021-09-11] MEDS: pantoprazole DR 40 mg Tablet PO ×3 (07:44→17:15)
[2021-09-11] MEDS: insulin glargine 100 units/1 mL 45 UNIT SUBCUT ×2 (07:44→19:48)
[2021-09-11] MEDS: gabapentin 300 mg Capsule PO ×2 (07:44→19:38)
--- NOTE | 2021-09-11 08:06 | P.PN_ITS ---
Subjective Subjective: History and physical reviewed. Patient reports he still feels short of breath. Perhaps a little bit better from yesterday. No chest discomfort. Admits to some nosebleeds in the past. No black or tarry stool or blood in his stool. Denies any hematuria. Had been drinking quite a bit of water at home. Medications: Reviewed: Yes Vitals/I&O/Wt Last Vital Signs Temp 98.3 F 09/11/21 07:56 Pulse 114 H 09/11/21 07:56 Resp 18 09/11/21 07:56 BP 111/68 09/11/21 07:56 Pulse Ox 95 09/11/21 07:56 09/10/21 09/11/21 09/11/21 22:59 06:59 14:59 Intake Total 600 / 600 50 / 650 Output Total 1400 / 1400 1200 / 2600 Balance -800 / -800 -1150 / -1950 Weight last 48 hrs Weight 133.084 kg Weight 151.5 kg Weight 145.15 kg Physical Exam Narrative: General exam is a pale white male in no apparent distress. 2 L out over the last 24 hours Neck is supple Cardiovascular irregular, irregular without murmur Lungs clear but with diminished breath sounds at the bases Abdomen is soft with positive bowel sounds Extremities 2+ edema, no cyanosis or clubbing Data : 09/11/21 04:19 09/11/21 04:19 A&P Assessment and plan (1) Acute on chronic diastolic (congestive) heart failure: Patient currently being diuresed with 40 mg of Lasix IV every 12 hours He is 2 L negative over the last 24 hours Creatinine 1.0. Additional 40 mg of Lasix IV, following 1 unit of blood Appreciate cardiology consultation May need to increase Lasix overall, but is getting an extra 40 mg of Lasix IV after blood transfusion we will readdress this tomorrow. 1500 cc fluid restriction Status: Acute (2) Atrial fibrillation with rapid ventricular response: Heart rhythm not ideally controlled currently. Consider metoprolol, low-dose, should heart rate not improved with transfusion Discontinue Eliquis Status: Acute (3) Hypochromic microcytic anemia: Check stool Hemoccults Noted to be iron deficient Transfuse 1 unit packed red blood cell Hemoglobin 1 hour following transfusion Increase Protonix to twice daily Discontinue Eliquis. Risks discussed with patient. Status: Acute (4) Diabetes mellitus type 2, uncontrolled, with complications: Discontinue Metformin Continue sliding scale Status: Acute Plan Multiple other medical problems as not noted in past medical history Global weakness, recently discharged from the custodial. Physical therapy consultation. SCDs for DVT prophylaxis. Anticoagulation contraindicated secondary to anemia Attestations Medical Necessity Statement*: Needs continued hospitalization secondary to need for further diuresis for acute diastolic heart failure, and treatment and exploration of anemia. Coding Level of Care Code Acute Long Term Care Social Worker for [facility] Fwd Diagnoses Acute on chronic diastolic (congestive) heart failure I50.33 Atrial fibrillation with rapid ventricular response I48.91 Hypochromic microcytic anemia D50.9 Diabetes mellitus type 2, uncontrolled, with complications
[2021-09-11] MEDS: acetaminophen 325 mg Tablet 650 MG PO (09:57)
--- NOTE | 2021-09-11 10:32 | PC.CHAP ---
Pastoral Care Encounter/Spiritual Assessment Type of Contact [] Declined centrifugal supervisor visit [] Patient/Family/Request visit [] Outpatient visit [] Follow-up visit [] Physician referral [] Code/Alert x[] Routine visit [] Staff referral [] Actively dying [] Patient sleeping [] Family support [] [] Out of room [] Palliative care [] [] Receiving care in room [] Pre-surgical visit [] Trauma [] Long length of stay [] ICU visit [] Other: Relational/Emotional Strength [x] Patient feels connected with others/family/visitors/staff [] Distress [] Loneliness/isolation [] Abandonment Spirituality of Patient [x] Person of Kasia [x] Attends [facility] of their [place] [x] Believes in Prayer [] Reads Bible or Anabaptism materials [] There are Spiritual issues to be addressed Sheriffs Interventions [x] Prayer [] Active listening [x] Non-anxious presence [] Spiritual/emotional support [] Crisis/trauma care [] Spiritual counseling [] Bereavement support [] Provided bereavement packet [] Provided Bible/devotional materials [] Provided toy/stuffed animal, coloring book to patient or family member [] Provided Communion [] Anointing/[place] [] Salvation [x] Completed spiritual assessment [] Other: Impact on Illness or Injury [] Angry [] Fearful [] Anxious [] Often cries [] Exhaustion [] Unable to work [] Unable to attend yazdanism [] Unable to walk/stand [] Unable to read [] Unable to drive [] Unable to eat/drink [] Unable to sleep [] Unable to be with family [] Patient intubated [] Other: Summary Time spent with patient 10 mi9n
[2021-09-11 11:30] LABS: Glucose Point of Care 245 mg/dL (70-110)
[2021-09-11] MEDS: sodium chloride 0.9% (100 ml) 100 ML (15:03)
[2021-09-11 16:10] LABS: Hematocrit 27.2 % (42.0-52.0); Hemoglobin 7.7 g/dL (11.7-16.6)
[2021-09-11] MEDS: levothyroxine 50 mcg Tablet PO (17:15)
[2021-09-11 17:22] LABS: Glucose Point of Care 111 mg/dL (70-110)
[2021-09-11 18:15] LABS: Add Urine Culture? No; Bacteria Urine TRACE /hpf; Bilirubin Urine Neg (Negative); Blood Urine Neg (Negative); Glucose Urine UA Norm (Normal); Ketones Urine Negative (Negative); Leukocyte Esterase Urine Negative (Negative); Nitrate Urine Negative (Negative); Protein Urine Neg (Negative); Urine Appearance Clear (CLEAR); Urine Color Colorless (Yellow); Urobilinogen Urine Norm (Negative); pH Urine 5 (5-7)
--- NOTE | 2021-09-11 18:36 | PM.PN ---
Subjective Subjective: The patient's breathing is much better. Denies any chest pain. No fever or chills. No significant cough. Vitals are stable Medications: Medication Review Details: Current Medications Acetaminophen (Acetaminophen 325 Mg Tablet) 650 mg PO Q6H PRN PRN Reason: Mild/Mod Pain Or Temp >/= 101 Last Admin: 09/11/21 09:57 Dose: 650 mg Documented by: Hydrocodone Bitart/Acetaminophen (Hydrocodone-Acetaminophen 5-325 Mg Tablet) 1 tab PO Q4H PRN PRN Reason: MODERATE TO SEVERE PAIN Albuterol/Ipratropium (Ipratropium-Albuterol 3 Ml Neb) 3 ml INHALATION Q6H PRN PRN Reason: Shortness Of Breath Calcium Carbonate (Calcium Carbonate 500 Mg Chew Tablet) 1,000 mg PO Q4H PRN PRN Reason: DYSPEPSI Clonazepam (Clonazepam 1 Mg Tablet) 1 mg PO BEDTIME PENDING SALE TO [facility] Last Admin: 09/10/21 21:25 Dose: 1 mg Documented by: Furosemide (Furosemide 10 Mg/Ml Sdv 4ml) 40 mg IVP Q12H PENDING SALE TO [facility] Last Admin: 09/11/21 15:05 Dose: 40 mg Documented by: Gabapentin (Gabapentin 300 Mg Capsule) 300 mg PO BID@08,20 PENDING SALE TO [facility] Last Admin: 09/11/21 07:44 Dose: 300 mg Documented by: Insulin Glargine (Insulin Glargine 100 Units/1 Ml) 45 unit SUBCUT BID@0800,2000 PENDING SALE TO [facility] Last Admin: 09/11/21 07:44 Dose: 45 unit Documented by: Levothyroxine Sodium (Levothyroxine 50 Mcg Tablet) 50 mcg PO QPM PENDING SALE TO [facility] Last Admin: 09/11/21 17:15 Dose: 50 mcg Documented by: Lisinopril (Lisinopril 5 Mg Tablet) 5 mg PO DAILY@0800 PENDING SALE TO [facility] Last Admin: 09/11/21 07:44 Dose: 5 mg Documented by: Metoprolol Tartrate (Metoprolol Tartrate 25 Mg Tablet) 25 mg PO BID@0900,2100 PENDING SALE TO [facility] Non-Formulary Medication (Insulin Aspart U-100 [Novolog Flexpen U-100 Insulin]) 0 unit PO .COMPLEX PENDING SALE TO [facility] Ondansetron HCl (Ondansetron 4 Mg Tablet) 4 mg PO Q8H PRN PRN Reason: NAUSEA Pantoprazole Sodium (Pantoprazole Dr 40 Mg Tablet) 40 mg PO BID PENDING SALE TO [facility] Last Admin: 09/11/21 17:15 Dose: 40 mg Documented by: Sertraline HCl (Sertraline 100 Mg Tablet) 100 mg PO QAM PENDING SALE TO [facility] Last Admin: 09/11/21 06:13 Dose: 100 mg Documented by: Tamsulosin HCl (Tamsulosin 0.4 Mg Capsule) 0.4 mg PO DAILY@0900 PENDING SALE TO [facility] Last Admin: 09/11/21 07:44 Dose: 0.4 mg Documented by: Trazodone HCl (Trazodone 150 Mg Tablet) 150 mg PO BEDTIME PENDING SALE TO [facility] Last Admin: 09/10/21 21:25 Dose: 150 mg Documented by: Vitals/I&O/Wt Last Vital Signs Temp 97.7 F 09/11/21 16:00 Pulse 101 H 09/11/21 16:00 Resp 18 09/11/21 16:00 BP 159/74 09/11/21 16:00 Pulse Ox 91 09/11/21 16:00 09/11/21 09/11/21 09/11/21 06:59 14:59 22:59 Intake Total 50 / 650 480 / 480 580 / 1060 Output Total 1200 / 2600 Balance -1150 / -1950 480 / 480 580 / 1060 Weight last 48 hrs Weight 293 lb 6.4 oz Weight 334 lb Weight 320 lb Physical Exam Narrative: GENERAL: The patient is alert and oriented times three. Moderate respiratory distress especially when he tries to move in the bed HEENT: Moderate pallor. No, icterus or lymphadenopathy. oral cavity: There are no mucous membrane lesions. NECK: Trachea appears to be central. No masses noted. No JVD or thyromegaly appreciated. No carotid bruit. RESPIRATORY: Chest is symmetrical. No intercostals muscle retraction or any accessory muscle activation. There is no chest wall tenderness. Breath sounds are heard bilaterally. Patient is depressed at the bases coarse crackles and occasional expiratory wheezes BREASTS: Deferred. HEART: The PMI could not be palpated. No palpable precordial events. The first heart sound is variable. Second heart sound is normal no S3 or S4 heard. No pericardial rub or any click heard. ABDOMEN: Abdomen is obese. No vessel pulsations or distention. No tenderness. No organomegaly appreciated. No abdominal bruit. Bowel sounds are normally heard. : Deferred. RECTAL: Deferred. LYMPHATIC: No lymphadenopathy noted in the neck. EXTREMITIES: 1-2+ edema both lower extremities. No cyanosis. Peripheral pulses are palpable and fairly good volume and amplitude MUSCULOSKELETAL: No acute joint deformities or swelling. SKIN: The long scar in the right shoulder area appears to have healed fairly well NEUROPSYCHIATRIC: The patient is alert and oriented x3. Appears to be in a good mood. The higher functions are grossly within normal limits. No tremors or rigidity noted. Data : 09/11/21 16:00 09/11/21 04:19 Other Labs: Laboratory Last Values WBC 6.2 10^3/uL (4.0-10.0) 09/11/21 04:19 RBC 2.87 10^6/uL (4.1-5.3) L 09/11/21 04:19 Hgb 7.7 g/dL (11.7-16.6) L 09/11/21 16:00 Hct 27.2 % (42.0-52.0) L 09/11/21 16:00 MCV 81.5 fl (80-94) 09/11/21 04:19 MCH 23.7 pg (28.0-34.0) L 09/11/21 04:19 MCHC 29.1 g/dL (30.0-36.0) L 09/11/21 04:19 RDW 15.6 % (12.1-15.1) H 09/11/21 04:19 Plt Count 189 10^3/cmm (130-400) 09/11/21 04:19 MPV 10.1 fL (7.4-10.4) 09/11/21 04:19 Neut % (Auto) 63.3 % 09/11/21 04:19 Lymph % (Auto) 20.4 % 09/11/21 04:19 [place] % (Auto) 13.4 % 09/11/21 04:19 Eos % (Auto) 2.1 % 09/11/21 04:19 Baso % (Auto) 0.3 % 09/11/21 04:19 Neut # (Auto) 3.91 10^3/uL (1.8-7.7) 09/11/21 04:19 Lymph # (Auto) 1.3 10^3/uL (0.8-4.8) 09/11/21 04:19 [place] # (Auto) 0.8 10^3/uL (0.2-0.9) 09/11/21 04:19 Eos # (Auto) 0.1 10^3/uL (0.0-0.8) 09/11/21 04:19 Baso # (Auto) 0.0 10^3/uL (0.0-0.1) 09/11/21 04:19 Nucleated RBC % (auto) 0 % 09/11/21 04:19 Nucleated RBCs # 0.0 /100WBC 09/11/21 04:19 Haptoglobin 212.0 mg/L (30-200) H 09/11/21 04:19 D-Dimer 2.36 ug/mIFEU (0-0.59) H 09/10/21 10:31 Specimen Type Venous 09/10/21 11:57 Matthew Test N/a 09/10/21 11:57 VBG pH 7.39 (7.32-7.42) 09/10/21 11:57 VBG pCO2 53.1 mmHg (41-51) H 09/10/21 11:57 VBG pO2 29.2 mmHg (25-40) 09/10/21 11:57 VBG HCO3 32.4 mmol/L (24-28) H 09/10/21 11:57 VBG Base Excess 6.7 mmol/L (-3.0-3.0) H 09/10/21 11:57 VBG Hematocrit 23.2 % (42-52) L 09/10/21 11:57 O2 Liters/Min 2.0 % 09/10/21 11:57 Cotton Weigher ID Clarrrro 09/10/21 11:57 Sodium 135 mmol/L (136-145) L 09/11/21 04:19 Potassium 3.9 mmol/L (3.5-5.1) 09/11/21 04:19 Chloride 98 mmol/L (98-107) 09/11/21 04:19 Carbon Dioxide 29 mmol/L (22-29) 09/11/21 04:19 Anion Gap 11.9 (5-19) 09/11/21 04:19 BUN 23 mg/dL (8-23) 09/11/21 04:19 Creatinine 1.0 mg/dL (0.7-1.2) 09/11/21 04:19 GFR Calculation 74.8 mL/min (90-130) L 09/11/21 04:19 Glucose 171 mg/dL (65-115) H 09/11/21 04:19 POC Glucose 111 mg/dL (70-110) H 09/11/21 17:07 Estimat Average Glucose 151 09/11/21 04:19 Hemoglobin A1c 6.9 % (4.0-6.0) H 09/11/21 04:19 Calculated Osmolality 288 mOsm/kg (285-295) 09/11/21 04:19 Calcium 8.9 mg/dL (8.5-10.5) 09/11/21 04:19 Iron 18 ug/dL (59-158) L 09/11/21 04:19 TIBC 342 mcg/dl 09/11/21 04:19 % Saturation 5.2 % (20-50) L 09/11/21 04:19 Unsat Iron Binding 324 ug/dL (112-347) 09/11/21 04:19 Transferrin 308 mg/dL (200-360) 09/11/21 04:19 Ferritin 40 ng/mL (30-400) 09/11/21 04:19 Total Bilirubin 0.3 mg/dL (0.15-1.2) 09/10/21 10:31 AST 19 U/L (0-40) 09/10/21 10:31 ALT 11 U/L (0-41) 09/10/21 10:31 Alkaline Phosphatase 173 IU/L (40-130) H 09/10/21 10:31 Troponin T Baseline 39 ng/L (0-15) H 09/10/21 10:31 Troponin T 120 Minute 39.02 ng/L (0-15) H 09/10/21 11:57 Delta Troponin T 0.02 ABS# (0-10) 09/10/21 11:57 Troponin T Hi Sens 6Hr 44.58 ng/L (0-15) H 09/10/21 16:40 Troponin T Hi Sens 6Hr Delta 5.58 ng/L (0-12) 09/10/21 16:40 NT-Pro-B Natriuret Pep 1030 pg/mL (0-125) H 09/10/21 10:31 Total Protein 7.1 g/dL (6.6-8.7) 09/10/21 10:31 Albumin 3.1 g/dL (3.5-5.2) L 09/10/21 10:31 Globulin 4.0 g/dL (1.3-4.6) 09/10/21 10:31 Triglycerides 69 mg/dL (0-150) 09/11/21 04:19 Cholesterol 108 mg/dL (0-200) 09/11/21 04:19 LDL Cholesterol, Calc 61 mg/dL (50-129) 09/11/21 04:19 HDL Cholesterol 33 mg/dL (60-100) L 09/11/21 04:19 LDL/HDL Ratio 1.85 RATIO (0.00-3.22) 09/11/21 04: Cholesterol/HDL Ratio 3.27 mg/dL (1.0-5.00) 09/11/21 04:19 TSH 0.67 uIU/mL (0.27-4.20) 09/11/21 04:19 Urine Color Colorless (Yellow) 09/11/21 17:00 Urine Appearance Clear (CLEAR) 09/11/21 17:00 Urine pH 5 (5-7) 09/11/21 17:00 Ur Specific [place] 1.010 (1.005-1.030) 09/11/21 17:00 Urine Protein Neg (Negative) 09/11/21 17:00 Urine Glucose (UA) Norm (Normal) 09/11/21 17:00 Urine Ketones Negative (Negative) 09/11/21 17:00 Urine Blood Neg (Negative) 09/11/21 17:00 Urine Nitrate Negative (Negative) 09/11/21 17:00 Urine Bilirubin Neg (Negative) 09/11/21 17:00 Urine Urobilinogen Norm mg/dL (Negative) 09/11/21 17:00 Ur Leukocyte Esterase Negative (Negative) 09/11/21 17:00 Urine RBC None /hpf (0-2) 09/11/21 17:00 Urine WBC None /hpf (0-5) 09/11/21 17:00 Ur Squamous Epith Cells None /hpf (0-5) 09/11/21 17:00 Amorphous Sediment Not Reportable 09/11/21 17:00 Urine Bacteria Trace /hpf (NONE) 09/11/21 17:00 SARS-CoV-2 Ag (Rapid) Negative (Negative) 09/10/21 10:31 Blood Type O Negative 09/11/21 09:00 Rho(D) Type Negative 09/11/21 09:00 Antibody Screen Negative 09/11/21 09:00 Crossmatch See Detail 09/11/21 09:00 A&P Assessment and plan (1) Acute on chronic diastolic (congestive) heart failure: Etiology could be multifactorial. Anemia, COPD exacerbation, atrial fibrillation, etc. are contributing factors. Patient may be carefully treated with IV diuretics. Status: Acute (2) Atrial fibrillation with rapid ventricular response: Patient's heart rate is fairly under control now. Because of the severe anemia, the rapid ventricular rate could be a compensatory mechanism. At this point, I would be focusing more on correcting the anemia and treating the underlying cause. Status: Acute (3) Hypochromic microcytic anemia: Patient may benefit from blood transfusion to keep the hemoglobin around 9-10. Anemia work-up as per the primary. Status: Acute (4) COPD exacerbation: Patient has a history of sleep apnea. Management as per the primary. Status: Acute (5) Diabetes mellitus type 2, uncontrolled, with complications: Aggressive management be appropriate. Status: Acute (6) HTN (hypertension): The blood pressure is fairly under control. Status: Acute Plan May continue on the Lasix and potassium. Possible blood transfusion today. We will consider myocardial perfusion imaging once the respiratory status is more stable Attestations Medical Necessity Statement*: Patient requires continued hospital stay for close monitoring and further management Coding Level of Care Code Acute Veneer Marker for g Fwd History Detailed Exam Detailed Medical Decision Making Moderate Complexity Diagnoses Acute on chronic diastolic (congestive) heart failure I50.33 Atrial fibrillation with rapid ventricular response I48.91 Hypochromic microcytic anemia D50.9 COPD exacerbation J44.1 Diabetes mellitus type 2, uncontrolled, with complications HTN (hypertension) I10
[2021-09-11] MEDS: CLONazepam 1 mg Tablet PO (20:14)
[2021-09-11] MEDS: trazodone 150 mg Tablet PO (20:14)
[2021-09-11] MEDS: metoprolol tartrate 25 mg Tablet PO (20:14)
[2021-09-11] MEDS: sodium chloride 0.9% (100 ml) 100 ML 50 ML (20:19)
[2021-09-11 20:49] LABS: Glucose Point of Care 132 mg/dL (70-110)
[2021-09-12] VITALS (10 sets, daily range): BP systolic 117–158; BP diastolic 69–81; PULSE 81–109; RESP 17–18; TEMP 36.3–36.7; O2SAT 93–98
[2021-09-12] MEDS: FUROsemide 10 mg/mL SDV 10mL 60 MG IVP ×2 (02:37→13:52)
[2021-09-12 03:29] LABS: Basophils % 0.6 %; Eosinophils # 0.2 10^3/uL (0.0-0.8); Eosinophils % 2.7 %; Hematocrit 28.2 % (42.0-52.0); Hemoglobin 8.2 g/dL (11.7-16.6); Lymphocytes # 1.4 10^3/uL (0.8-4.8); Lymphocytes % 21.1 %; Mean Corpuscular HGB Conc 29.1 g/dL (30.0-36.0); Mean Corpuscular Hemoglobin 24.1 pg (28.0-34.0); Mean Corpuscular Volume 82.9 fl (80-94); Mean Platelet Volume 9.7 fL (7.4-10.4); Monocytes % 14.4 %; Neutrophils # 4.01 10^3/uL (1.8-7.7); Neutrophils % 60.7 %; Nucleated Red Blood Cells % 0 %; Platelet Count 180 10^3/cmm (130-400); Red Cell Distribution Width 15.8 % (12.1-15.1); White Blood Count 6.6 10^3/uL (4.0-10.0)
[2021-09-12 04:00] LABS: Alanine Aminotransferase 11 U/L (0-41); Alkaline Phosphatase 160 IU/L (40-130); Anion Gap 12.8 (5-19); Aspartate Amino Transferase 20 U/L (0-40); Blood Urea Nitrogen 22 mg/dL (8-23); Carbon Dioxide 31 mmol/L (22-29); Chloride 100 mmol/L (98-107); Globulin 3.7 g/dL (1.3-4.6); Glucose 72 mg/dL (65-115); Osmolality Calculated 292 mOsm/kg (285-295); Potassium 3.8 mmol/L (3.5-5.1); Sodium 140 mmol/L (136-145); Total Bilirubin 0.4 mg/dL (0.15-1.2); Total Protein 6.7 g/dL (6.6-8.7)
--- NOTE | 2021-09-12 05:00 | PC.NURSE ---
SHIFT SUMMARY Pt is very pleasant. Has denied pain. Received 1 unit of PRBC's in the evening and tolerated well. Receiving IV Lasix and is voiding per urinal with very good output. Continues to have pitting edema to BLE. Has been up in chair couple of times tonight. O2 at 3l per NC and is SOB with exertion. Says this has been normal for him lately. Wears own CPAP at HS.
[2021-09-12] MEDS: sertraline 100 mg Tablet PO (06:06)
[2021-09-12 06:46] LABS: Glucose Point of Care 65 mg/dL (70-110)
--- NOTE | 2021-09-12 07:56 | P.PN_ITS ---
Subjective Subjective: Juan reports he feels some better. Less short of breath. Up and around the room some yesterday. Still feels swollen. Medications: Reviewed: Yes Vitals/I&O/Wt Last Vital Signs Temp 97.9 F 09/12/21 07:41 Pulse 109 H 09/12/21 07:41 Resp 18 09/12/21 07:41 BP 138/79 09/12/21 07:41 Pulse Ox 98 09/12/21 07:41 09/11/21 09/12/21 09/12/21 22:59 06:59 14:59 Intake Total 580 / 1060 750 / 1810 Output Total 3050 / 3050 2275 / 5325 Balance -2470 / -1989 -1525 / -3515 Weight last 48 hrs Weight 147.508 kg Weight 133.084 kg Weight 151.5 kg Weight 145.15 kg Physical Exam Narrative: General exam is a pale white male in no apparent distress. Over 3 L negative over the last 24 hours Neck is supple Cardiovascular irregular, irregular without murmur Lungs clear but with diminished breath sounds at the bases Abdomen is soft with positive bowel sounds Extremities 1+ edema, no cyanosis or clubbing Data : 09/12/21 02:46 09/12/21 02:46 Other Labs: Stool was heme positive Micro: Microbiology 09/11/21 18:41 Occult Blood (FIT) - Final Stool A&P Assessment and plan (1) Acute on chronic diastolic (congestive) heart failure: Becoming more compensated. He still has some extra fluid on board. Continue Lasix 60 mg IV every 12 hours Continue fluid restriction, salt restriction Status: Acute (2) Atrial fibrillation with rapid ventricular response: Heart rate still a little high, despite correction of anemia. Increase metoprolol to 50 mg twice daily Eliquis has been discontinued secondary to anemia. Risk discussed with the patient yesterday. Daughter was present for conversation. Status: Acute (3) Hypochromic microcytic anemia: Significantly iron deficient Transfused 2 units of packed red blood cells yesterday Iron transfusion today Repeat CBC tomorrow Stool Hemoccult positive. He will need an EGD and a colonoscopy as an outpatient Continue Protonix twice daily Status: Acute (4) Diabetes mellitus type 2, uncontrolled, with complications: Sliding scale insulin Status: Acute Plan Obstructive sleep apnea. To wear CPAP when sleeping. Multiple other medical problems as outlined in past medical history SCDs for DVT prophylaxis Full code Attestations Medical Necessity Statement*: Needs continued hospitalization for further diuresis secondary to acute diastolic heart failure. Coding Level of Care Code Acute Desizing Pad Operator for Chg Fwd Diagnoses Acute on chronic diastolic (congestive) heart failure I50.33 Atrial fibrillation with rapid ventricular response I48.91 Hypochromic microcytic anemia D50.9 Diabetes mellitus type 2, uncontrolled, with complications
[2021-09-12] MEDS: insulin glargine 100 units/1 mL 45 UNIT SUBCUT ×2 (08:04→21:37)
[2021-09-12] MEDS: tamsulosin 0.4 mg Capsule PO (08:04)
[2021-09-12] MEDS: iron sucrose 200 MG in sodium chloride 0.9% (100 ml) 100 ML 220 MG IV (08:04)
[2021-09-12] MEDS: pantoprazole DR 40 mg Tablet PO ×2 (08:04→17:29)
[2021-09-12] MEDS: gabapentin 300 mg Capsule PO ×2 (08:04→21:36)
[2021-09-12] MEDS: lisinopril 5 mg Tablet PO (08:04)
[2021-09-12] MEDS: metoprolol tartrate 25 mg Tablet 50 MG PO ×2 (08:15→21:38)
[2021-09-12 08:42] LABS: Glucose Point of Care 116 mg/dL (70-110)
[2021-09-12 12:34] LABS: Glucose Point of Care 138 mg/dL (70-110)
[2021-09-12] MEDS: levothyroxine 50 mcg Tablet PO (17:29)
[2021-09-12 17:36] LABS: Glucose Point of Care 115 mg/dL (70-110)
[2021-09-12 20:52] LABS: Glucose Point of Care 193 mg/dL (70-110)
[2021-09-12] MEDS: CLONazepam 1 mg Tablet PO (21:38)
[2021-09-12] MEDS: trazodone 150 mg Tablet PO (21:38)
--- NOTE | 2021-09-12 22:47 | P.PN_ITS ---
Subjective Subjective: Patient had tenderness of blood transfusion yesterday. He is currently receiving iron transfusion. Denies any chest pain or chest tightness. Shortness of breath has markedly improved. Medications: Medication Review Details: Current Medications Acetaminophen (Acetaminophen 325 Mg Tablet) 650 mg PO Q6H PRN PRN Reason: Mild/Mod Pain Or Temp >/= 101 Last Admin: 09/11/21 09:57 Dose: 650 mg Documented by: Hydrocodone Bitart/Acetaminophen (Hydrocodone-Acetaminophen 5-325 Mg Tablet) 1 tab PO Q4H PRN PRN Reason: MODERATE TO SEVERE PAIN Albuterol/Ipratropium (Ipratropium-Albuterol 3 Ml Neb) 3 ml INHALATION Q6H PRN PRN Reason: Shortness Of Breath Calcium Carbonate (Calcium Carbonate 500 Mg Chew Tablet) 1,000 mg PO Q4H PRN PRN Reason: DYSPEPSI Clonazepam (Clonazepam 1 Mg Tablet) 1 mg PO BEDTIME [facility] Last Admin: 09/12/21 21:38 Dose: 1 mg Documented by: Furosemide (Furosemide 10 Mg/Ml Sdv 4ml) 40 mg IVP Q12H [facility] Gabapentin (Gabapentin 300 Mg Capsule) 300 mg PO BID@08,20 [facility] Last Admin: 09/12/21 21:36 Dose: 300 mg Documented by: Insulin Glargine (Insulin Glargine 100 Units/1 Ml) 45 unit SUBCUT BID@0800,2000 [facility] Last Admin: 09/12/21 21:37 Dose: 45 unit Documented by: Levothyroxine Sodium (Levothyroxine 50 Mcg Tablet) 50 mcg PO QPM [facility] Last Admin: 09/12/21 17:29 Dose: 50 mcg Documented by: Lisinopril (Lisinopril 5 Mg Tablet) 5 mg PO DAILY@0800 [facility] Last Admin: 09/12/21 08:04 Dose: 5 mg Documented by: Metoprolol Tartrate (Metoprolol Tartrate 25 Mg Tablet) 50 mg PO BID@0900,2100 [facility] Last Admin: 09/12/21 21:38 Dose: 50 mg Documented by: Non-Formulary Medication (Insulin Aspart U-100 [Novolog Flexpen U-100 Insulin]) 0 unit PO .COMPLEX [facility] Ondansetron HCl (Ondansetron 4 Mg Tablet) 4 mg PO Q8H PRN PRN Reason: NAUSEA Pantoprazole Sodium (Pantoprazole Dr 40 Mg Tablet) 40 mg PO BID [facility] Last Admin: 09/12/21 17:29 Dose: 40 mg Documented by: Sertraline HCl (Sertraline 100 Mg Tablet) 100 mg PO QAM [facility] Last Admin: 09/12/21 06:06 Dose: 100 mg Documented by: Tamsulosin HCl (Tamsulosin 0.4 Mg Capsule) 0.4 mg PO DAILY@0900 [facility] Last Admin: 09/12/21 08:04 Dose: 0.4 mg Documented by: Trazodone HCl (Trazodone 150 Mg Tablet) 150 mg PO BEDTIME [facility] Last Admin: 09/12/21 21:38 Dose: 150 mg Documented by: Vitals/I&O/Wt Last Vital Signs Temp 97.6 F 09/12/21 20:00 Pulse 100 09/12/21 20:00 Resp 17 09/12/21 20:00 BP 158/79 09/12/21 20:00 Pulse Ox 95 09/12/21 20:00 09/12/21 09/12/21 09/12/21 06:59 14:59 22:59 Intake Total 750 / 1810 830 / 830 240 / 1070 Output Total 2275 / 5325 350 / 350 340 / 690 Balance -1525 / -3515 480 / 480 -100 / 380 Weight last 48 hrs Weight 325 lb 3.2 oz Weight 293 lb 6.4 oz Physical Exam Narrative: GENERAL: The patient is alert and oriented times three. Moderate respiratory distress especially when he tries to move in the bed HEENT: Moderate pallor. No, icterus or lymphadenopathy. oral cavity: There are no mucous membrane lesions. NECK: Trachea appears to be central. No masses noted. No JVD or thyromegaly appreciated. No carotid bruit. RESPIRATORY: Chest is symmetrical. No intercostals muscle retraction or any acc essory muscle activation. There is no chest wall tenderness. Breath sounds are heard bilaterally. Patient is depressed at the bases coarse crackles and occasional expiratory wheezes BREASTS: Deferred. HEART: The PMI could not be palpated. No palpable precordial events. The first heart sound is variable. Second heart sound is normal no S3 or S4 heard. No pericardial rub or any click heard. ABDOMEN: Abdomen is obese. No vessel pulsations or distention. No tenderness. No organomegaly appreciated. No abdominal bruit. Bowel sounds are normally heard. : Deferred. RECTAL: Deferred. LYMPHATIC: No lymphadenopathy noted in the neck. EXTREMITIES: 1-2+ edema both lower extremities. No cyanosis. Peripheral pulses are palpable and fairly good volume and amplitude MUSCULOSKELETAL: No acute joint deformities or swelling. SKIN: The long scar in the right shoulder area appears to have healed fairly well NEUROPSYCHIATRIC: The patient is alert and oriented x3. Appears to be in a good mood. The higher functions are grossly within normal limits. No tremors or rigidity noted. Data : 09/12/21 02:46 09/12/21 02:46 Other Labs: Laboratory Last Values WBC 6.6 10^3/uL (4.0-10.0) 09/12/21 02:46 RBC 3.40 10^6/uL (4.1-5.3) L 09/12/21 02:46 Hgb 8.2 g/dL (11.7-16.6) L 09/12/21 02:46 Hct 28.2 % (42.0-52.0) L 09/12/21 02:46 MCV 82.9 fl (80-94) 09/12/21 02:46 MCH 24.1 pg (28.0-34.0) L 09/12/21 02:46 MCHC 29.1 g/dL (30.0-36.0) L 09/12/21 02:46 RDW 15.8 % (12.1-15.1) H 09/12/21 02:46 Plt Count 180 10^3/cmm (130-400) 09/12/21 02:46 MPV 9.7 fL (7.4-10.4) 09/12/21 02:46 Neut % (Auto) 60.7 % 09/12/21 02:46 Lymph % (Auto) 21.1 % 09/12/21 02:46 [place] % (Auto) 14.4 % 09/12/21 02:46 Eos % (Auto) 2.7 % 09/12/21 02:46 Baso % (Auto) 0.6 % 09/12/21 02:46 Neut # (Auto) 4.01 10^3/uL (1.8-7.7) 09/12/21 02:46 Lymph # (Auto) 1.4 10^3/uL (0.8-4.8) 09/12/21 02:46 [place] # (Auto) 1.0 10^3/uL (0.2-0.9) H 09/12/21 02:46 Eos # (Auto) 0.2 10^3/uL (0.0-0.8) 09/12/21 02:46 Baso # (Auto) 0.0 10^3/uL (0.0-0.1) 09/12/21 02:46 Nucleated RBC % (auto) 0 % 09/12/21 02:46 Nucleated RBCs # 0.0 /100WBC 09/12/21 02:46 Haptoglobin 212.0 mg/L (30-200) H 09/11/21 04:19 D-Dimer 2.36 ug/mIFEU (0-0.59) H 09/10/21 10:31 Specimen Type Venous 09/10/21 11:57 Matthew Test N/a 09/10/21 11:57 VBG pH 7.39 (7.32-7.42) 09/10/21 11:57 VBG pCO2 53.1 mmHg (41-51) H 09/10/21 11:57 VBG pO2 29.2 mmHg (25-40) 09/10/21 11:57 VBG HCO3 32.4 mmol/L (24-28) H 09/10/21 11:57 VBG Base Excess 6.7 mmol/L (-3.0-3.0) H 09/10/21 11:57 VBG Hematocrit 23.2 % (42-52) L 09/10/21 11:57 O2 Liters/Min 2.0 % 09/10/21 11:57 Load Builder ID Clarrrro 09/10/21 11:57 Sodium 140 mmol/L (136-145) 09/12/21 02:46 Potassium 3.8 mmol/L (3.5-5.1) 09/12/21 02:46 Chloride 100 mmol/L (98-107) 09/12/21 02:46 Carbon Dioxide 31 mmol/L (22-29) H 09/12/21 02:46 Anion Gap 12.8 (5-19) 09/12/21 02:46 BUN 22 mg/dL (8-23) 09/12/21 02:46 Creatinine 1.1 mg/dL (0.7-1.2) 09/12/21 02:46 GFR Calculation 67.0 mL/min (90-130) L 09/12/21 02:46 Glucose 72 mg/dL (65-115) 09/12/21 02:46 POC Glucose 193 mg/dL (70-110) H 09/12/21 20:38 Estimat Average Glucose 151 09/11/21 04:19 Hemoglobin A1c 6.9 % (4.0-6.0) H 09/11/21 04:19 Calculated Osmolality 292 mOsm/kg (285-295) 09/12/21 02:46 Calcium 9.0 mg/dL (8.5-10.5) 09/12/21 02:46 Iron 18 ug/dL (59-158) L 09/11/21 04:19 TIBC 342 mcg/dl 09/11/21 04:19 % Saturation 5.2 % (20-50) L 09/11/21 04:19 Unsat Iron Binding 324 ug/dL (112-347) 09/11/21 04:19 Transferrin 308 mg/dL (200-360) 09/11/21 04:19 Ferritin 40 ng/mL (30-400) 09/11/21 04:19 Total Bilirubin 0.4 mg/dL (0.15-1.2) 09/12/21 02:46 AST 20 U/L (0-40) 09/12/21 02:46 ALT 11 U/L (0-41) 09/12/21 02:46 Alkaline Phosphatase 160 IU/L (40-130) H 09/12/21 02:46 Troponin T Baseline 39 ng/L (0-15) H 09/10/21 10:31 Troponin T 120 Minute 39.02 ng/L (0-15) H 09/10/21 11:57 Delta Troponin T 0.02 ABS# (0-10) 09/10/21 11:57 Troponin T Hi Sens 6Hr 44.58 ng/L (0-15) H 09/10/21 16:40 Troponin T Hi Sens 6Hr Delta 5.58 ng/L (0-12) 09/10/21 16:40 NT-Pro-B Natriuret Pep 1030 pg/mL (0-125) H 09/10/21 10:31 Total Protein 6.7 g/dL (6.6-8.7) 09/12/21 02:46 Albumin 3.0 g/dL (3.5-5.2) L 09/12/21 02:46 Globulin 3.7 g/dL (1.3-4.6) 09/12/21 02:46 Triglycerides 69 mg/dL (0-150) 09/11/21 04:19 Cholesterol 108 mg/dL (0-200) 09/11/21 04:19 LDL Cholesterol, Calc 61 mg/dL (50-129) 09/11/21 04:19 HDL Cholesterol 33 mg/dL (60-100) L 09/11/21 04:19 LDL/HDL Ratio 1.85 RATIO (0.00-3.22) 09/11/21 04:19 Cholesterol/HDL Ratio 3.27 mg/dL (1.0-5.00) 09/11/21 04:19 TSH 0.67 uIU/mL (0.27-4.20) 09/11/21 04:19 Urine Color Colorless (Yellow) 09/11/21 17:00 Urine Appearance Clear (CLEAR) 09/11/21 17:00 Urine pH 5 (5-7) 09/11/21 17:00 Ur Specific [place] 1.010 (1.005-1.030) 09/11/21 17:00 Urine Protein Neg (Negative) 09/11/21 17:00 Urine Glucose (UA) Norm (Normal) 09/11/21 17:00 Urine Ketones Negative (Negative) 09/11/21 17:00 Urine Blood Neg (Negative) 09/11/21 17:00 Urine Nitrate Negative (Negative) 09/11/21 17:00 Urine Bilirubin Neg (Negative) 09/11/21 17:00 Urine Urobilinogen Norm mg/dL (Negative) 09/11/21 17:00 Ur Leukocyte Esterase Negative (Negative) 09/11/21 17:00 Urine RBC None /hpf (0-2) 09/11/21 17:00 Urine WBC None /hpf (0-5) 09/11/21 17:00 Ur Squamous Epith Cells None /hpf (0-5) 09/11/21 17:00 Amorphous Sediment Not Reportable 09/11/21 17:00 Urine Bacteria Trace /hpf (NONE) 09/11/21 17:00 SARS-CoV-2 Ag (Rapid) Negative (Negative) 09/10/21 10:31 Blood Type O Negative 09/11/21 09:00 Rho(D) Type Negative 09/11/21 09:00 Antibody Screen Negative 09/11/21 09:00 Crossmatch See Detail 09/11/21 09:00 Micro: Microbiology 09/11/21 18:41 Occult Blood (FIT) - Final Stool A&P Assessment and plan (1) Acute on chronic diastolic (congestive) heart failure: Etiology could be multifactorial. Anemia, COPD exacerbation, atrial fibrillation, etc. are contributing factors. Patient seems to be responding to the diuretics and the blood transfusion well. At this point, he may not require any further investigations. Status: Acute (2) Atrial fibrillation with rapid ventricular response: Patient's heart rate is fairly under control now. Because of the severe anemia, the rapid ventricular rate could be a compensatory mechanism. At this point, I would be focusing more on correcting the anemia and treating the underlying cause. I discussed with the patient about doing a myocardial perfusion imaging, to evaluate for any underlying coronary ischemia. For the patient, he had a stress test many years ago and is not wanting to go for another stress test. Status: Acute (3) Hypochromic microcytic anemia: Patient may benefit from blood transfusion to keep the hemoglobin around 9-10. Anemia work-up as per the primary. Status: Acute (4) COPD exacerbation: Patient has a history of sleep apnea. Management as per the primary. Status: Acute (5) Diabetes mellitus type 2, uncontrolled, with complications: Aggressive management be appropriate. Status: Acute (6) HTN (hypertension): The blood pressure is fairly under control. Status: Acute Plan May continue on the Lasix and potassium. Repeat BMP and CBC in the morning. Attestations 2 Medical Necessity Statement*: Disposition as per the primary Coding Level of Care Code Acute Professional Services Consultant for Josh Gallego Diagnoses Acute on chronic diastolic (congestive) heart failure I50.33 Atrial fibrillation with rapid ventricular response I48.91 Hypochromic microcytic anemia D50.9 COPD exacerbation J44.1 Diabetes mellitus type 2, uncontrolled, with complications HTN (hypertension) I10
[2021-09-13] VITALS (9 sets, daily range): BP systolic 116–146; BP diastolic 66–78; PULSE 80–100; RESP 12–17; TEMP 36.5–36.9; O2SAT 90–98
[2021-09-13] MEDS: FUROsemide 10 mg/mL SDV 4mL 40 MG IVP ×2 (03:21→08:27)
[2021-09-13 04:52] LABS: Basophils % 0.6 %; Eosinophils # 0.2 10^3/uL (0.0-0.8); Eosinophils % 2.6 %; Hemoglobin 8.7 g/dL (11.7-16.6); Lymphocytes # 1.6 10^3/uL (0.8-4.8); Lymphocytes % 24.3 %; Mean Corpuscular Hemoglobin 24.4 pg (28.0-34.0); Mean Corpuscular Volume 84.3 fl (80-94); Mean Platelet Volume 10.2 fL (7.4-10.4); Monocytes % 15.4 %; Neutrophils % 56.6 %; Nucleated Red Blood Cells % 0 %; Platelet Count 191 10^3/cmm (130-400); Red Blood Count 3.56 10^6/uL (4.1-5.3); Red Cell Distribution Width 15.9 % (12.1-15.1); White Blood Count 6.5 10^3/uL (4.0-10.0)
[2021-09-13] MEDS: sertraline 100 mg Tablet PO (05:20)
[2021-09-13 05:23] LABS: Alanine Aminotransferase 11 U/L (0-41); Alkaline Phosphatase 167 IU/L (40-130); Anion Gap 13.9 (5-19); Aspartate Amino Transferase 22 U/L (0-40); Blood Urea Nitrogen 21 mg/dL (8-23); Carbon Dioxide 32 mmol/L (22-29); Chloride 99 mmol/L (98-107); Globulin 4.2 g/dL (1.3-4.6); Glomerular Filtration Rate 74.8 mL/min (90-130); Glucose 78 mg/dL (65-115); Osmolality Calculated 294 mOsm/kg (285-295); Potassium 3.9 mmol/L (3.5-5.1); Sodium 141 mmol/L (136-145); Total Bilirubin 0.3 mg/dL (0.15-1.2); Total Protein 7.2 g/dL (6.6-8.7)
[2021-09-13] MEDS: metoprolol tartrate 25 mg Tablet 50 MG PO ×2 (08:26→20:54)
[2021-09-13] MEDS: tamsulosin 0.4 mg Capsule PO (08:26)
[2021-09-13] MEDS: gabapentin 300 mg Capsule PO ×2 (08:26→20:54)
[2021-09-13] MEDS: insulin glargine 100 units/1 mL 45 UNIT SUBCUT ×2 (08:27→21:30)
[2021-09-13] MEDS: lisinopril 5 mg Tablet PO (08:27)
[2021-09-13] MEDS: iron sucrose 200 MG in sodium chloride 0.9% (100 ml) 100 ML 220 MG IV (08:27)
[2021-09-13] MEDS: pantoprazole DR 40 mg Tablet PO ×2 (08:27→16:57)
--- NOTE | 2021-09-13 10:24 | PC.SOCIAL ---
IMM Update Pg. 2 of IMM updated and reviewed with patient who verbalized understanding. Copy provided.
--- NOTE | 2021-09-13 12:01 | P.PN_ITS ---
Subjective Subjective: Juan reports he is still swollen. Still has shortness of breath when he exerts himself. Is better from on admission. Denies any chest pain. Medications: Reviewed: Yes Vitals/I&O/Wt Last Vital Signs Temp 98.5 F 09/13/21 11:15 Pulse 89 09/13/21 11:15 Resp 16 09/13/21 08:36 BP 116/72 09/13/21 11:15 Pulse Ox 96 09/13/21 11:15 09/12/21 09/13/21 09/13/21 22:59 06:59 14:59 Intake Total 240 / 1070 125 / 1195 110 / 110 Output Total 340 / 690 1220 / 1910 Balance -100 / 380 -1095 / -715 110 / 110 Weight last 48 hrs Weight 147.508 kg Physical Exam Narrative: General exam no distress. 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 Additional 40 mg of Lasix IV now Continue Lasix 60 mg IV every 12 hours Continue fluid restriction, salt restriction Status: Acute (2) Atrial fibrillation with rapid ventricular response: Heart rate now well controlled on metoprolol 50 mg twice daily Eliquis has been discontinued secondary to anemia. Risk discussed with the patient yesterday. Daughter was present for conversation. Status: Acute (3) Hypochromic microcytic anemia: Significantly iron deficient Transfused 2 units of packed red blood cells September 11 Repeat iron transfusion today. One was given September 12 as well Hemoglobin improved Stool Hemoccult positive. He will need an EGD and a colonoscopy as an outpatient Continue Protonix twice daily Status: Acute (4) Diabetes mellitus type 2, uncontrolled, with complications: Sliding scale insulin Status: Acute Plan Obstructive sleep apnea. To wear CPAP when sleeping. Multiple other medical problems as outlined in past medical history SCDs for DVT prophylaxis Full code Patient and family contemplating placement at intermediate facility. Attestations Medical Necessity Statement*: Needs continued hospitalization for further diu resis to fully compensate heart failure prior to discharge. 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
[2021-09-13 12:54] LABS: Glucose Point of Care 145 mg/dL (70-110)
[2021-09-13] MEDS: levothyroxine 50 mcg Tablet PO (16:57)
[2021-09-13] MEDS: acetaminophen 325 mg Tablet 650 MG PO (17:09)
[2021-09-13 17:43] LABS: Glucose Point of Care 95 mg/dL (70-110)
[2021-09-13] MEDS: trazodone 150 mg Tablet PO (20:54)
[2021-09-13] MEDS: CLONazepam 1 mg Tablet PO (20:54)
[2021-09-13 21:02] LABS: Glucose Point of Care 73 mg/dL (70-110)
[2021-09-13 21:03] LABS: Glucose Point of Care 147 mg/dL (70-110)
[2021-09-13] MEDS: FUROsemide 10 mg/mL SDV 10mL 60 MG IVP (21:26)
--- NOTE | 2021-09-13 21:49 | PC.NURSE ---
Administered 25units Lantus per patient request. Verified by JORGITO Bradford.
--- NOTE | 2021-09-13 22:37 | P.PN_ITS ---
Subjective Subjective: Patient is mainly complaining about swelling of both lower extremities. He has been sitting up in the chair most of the day. Is swelling of the abdomen is much better. His shortness of breath also significantly improved. Denies any fever or chills. No cough. Hemoglobin seems to be dropping Medications: Medication Review Details: Current Medications Acetaminophen (Acetaminophen 325 Mg Tablet) 650 mg PO Q6H PRN PRN Reason: Mild/Mod Pain Or Temp >/= 101 Last Admin: 09/13/21 17:09 Dose: 650 mg Documented by: Hydrocodone Bitart/Acetaminophen (Hydrocodone-Acetaminophen 5-325 Mg Tablet) 1 tab PO Q4H PRN PRN Reason: MODERATE TO SEVERE PAIN Albuterol/Ipratropium (Ipratropium-Albuterol 3 Ml Neb) 3 ml INHALATION Q6H PRN PRN Reason: Shortness Of Breath Calcium Carbonate (Calcium Carbonate 500 Mg Chew Tablet) 1,000 mg PO Q4H PRN PRN Reason: DYSPEPSI Clonazepam (Clonazepam 1 Mg Tablet) 1 mg PO BEDTIME [facility] Last Admin: 09/13/21 20:54 Dose: 1 mg Documented by: Furosemide (Furosemide 10 Mg/Ml Sdv 10ml) 60 mg IVP Q12H [facility] Last Admin: 09/13/21 21:26 Dose: 60 mg Documented by: Gabapentin (Gabapentin 300 Mg Capsule) 300 mg PO BID@08 [facility] Last Admin: 09/13/21 20:54 Dose: 300 mg Documented by: Insulin Glargine (Insulin Glargine 100 Units/1 Ml) 45 unit SUBCUT BID@0800,2000 [facility] Last Admin: 09/13/21 21:30 Dose: 45 unit Documented by: Levothyroxine Sodium (Levothyroxine 50 Mcg Tablet) 50 mcg PO QPM [facility] Last Admin: 09/13/21 16:57 Dose: 50 mcg Documented by: Lisinopril (Lisinopril 5 Mg Tablet) 5 mg PO DAILY@0800 [facility] Last Admin: 09/13/21 08:27 Dose: 5 mg Documented by: Metoprolol Tartrate (Metoprolol Tartrate 25 Mg Tablet) 50 mg PO BID@0900,2100 [facility] Last Admin: 09/13/21 20:54 Dose: 50 mg Documented by: Non-Formulary Medication (Insulin Aspart U-100 [Novolog Flexpen U-100 Insulin]) 0 unit PO .COMPLEX [facility] Ondansetron HCl (Ondansetron 4 Mg Tablet) 4 mg PO Q8H PRN PRN Reason: NAUSEA Pantoprazole Sodium (Pantoprazole Dr 40 Mg Tablet) 40 mg PO BID [facility] Last Admin: 09/13/21 16:57 Dose: 40 mg Documented by: Sertraline HCl (Sertraline 100 Mg Tablet) 100 mg PO QAM [facility] Last Admin: 09/13/21 05:20 Dose: 100 mg Documented by: Tamsulosin HCl (Tamsulosin 0.4 Mg Capsule) 0.4 mg PO DAILY@0900 [facility] Last Admin: 09/13/21 08:26 Dose: 0.4 mg Documented by: Trazodone HCl (Trazodone 150 Mg Tablet) 150 mg PO BEDTIME [facility] Last Admin: 09/13/21 20:54 Dose: 150 mg Documented by: Vitals/I&O/Wt Last Vital Signs Temp 98.2 F 09/13/21 20:00 Pulse 80 09/13/21 20:24 Resp 16 09/13/21 20:24 BP 122/78 09/13/21 20:00 Pulse Ox 97 09/13/21 20:24 09/13/21 09/13/21 09/13/21 06:59 14:59 22:59 Intake Total 125 / 1195 110 / 110 Output Total 1220 / 1910 1500 / 1500 1430 / 2930 Balance -1095 / -715 -1390 / -1390 -1430 / -2820 Weight last 48 hrs Weight 325 lb 3.2 oz Physical Exam Narrative: GENERAL: The patient is alert and oriented times three. Moderate respiratory distress especially when he tries to move in the bed HEENT: Mild pallor. No, icterus or lymphadenopathy. oral cavity: There are no mucous membrane lesions. NECK: Trachea appears to be central. No masses noted. No JVD or thyromegaly appreciated. No carotid bruit. RESPIRATORY: Chest is symmetrical. No intercostals muscle retraction or any accessory muscle activation. There is no chest wall tenderness. Breath sounds are heard bilaterally. Patient is depressed at the bases coarse crackles and occasional expiratory wheezes BREASTS: Deferred. HEART: The PMI could not be palpated. No palpable precordial events. The first heart sound is variable. Second heart sound is normal no S3 or S4 heard. No per icardial rub or any click heard. ABDOMEN: Abdomen is obese. No vessel pulsations or distention. No tenderness. No organomegaly appreciated. No abdominal bruit. Bowel sounds are normally heard. : Deferred. RECTAL: Deferred. LYMPHATIC: No lymphadenopathy noted in the neck. EXTREMITIES: 2+ edema both lower extremities. No cyanosis. Peripheral pulses are palpable and fairly good volume and amplitude MUSCULOSKELETAL: No acute joint deformities or swelling. SKIN: The long scar in the right shoulder area appears to have healed fairly well NEUROPSYCHIATRIC: The patient is alert and oriented x3. Appears to be in a good mood. The higher functions are grossly within normal limits. No tremors or ri gidity noted. Data : 09/13/21 04:30 09/13/21 04:30 A&P Assessment and plan (1) Acute on chronic diastolic (congestive) heart failure: The heart failure seems to be getting compensated clinically. I discussed the patient about doing a myocardial perfusion imaging, to evaluate for any underlying coronary ischemia. The patient does not have any chest pain or any chest tightness. The patient is wanting to hold off on this for the time being. He seems to understand implications. Status: Acute (2) Atrial fibrillation with rapid ventricular response: The ventricular rate seems to be getting under control. Advised to continue on the current measures. Status: Acute (3) Hypochromic microcytic anemia: Patient had 2 units of blood transfusion. The hemoglobin seems to be slowly dropping Status: Acute (4) COPD exacerbation: Clinically improving. Continue on the current measures. Status: Acute (5) Diabetes mellitus type 2, uncontrolled, with complications: Aggressive management be appropriate. Status: Acute (6) HTN (hypertension): The blood pressure is fairly under control. May continue to monitor the blood pressure closely. Status: Acute Plan Peripheral edema -mostly dependent. May try compression stockings and feet elevation. May continue on the Lasix and potassium. Repeat BMP and CBC in the morning. 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
[2021-09-13] MEDS: HYDROcodone-acetaminophen 5-325 mg Tablet 1 TAB PO (23:09)
[2021-09-14 04:00] VITALS: BP 144/75; PULSE 101; RESP 18; TEMP 36.7; O2SAT 94
[2021-09-14] MEDS: sertraline 100 mg Tablet PO (05:29)
[2021-09-14 06:06] LABS: Basophils % 0.5 %; Eosinophils # 0.2 10^3/uL (0.0-0.8); Eosinophils % 2.9 %; Hematocrit 32.2 % (42.0-52.0); Hemoglobin 9.2 g/dL (11.7-16.6); Lymphocytes # 1.6 10^3/uL (0.8-4.8); Lymphocytes % 26.9 %; Mean Corpuscular HGB Conc 28.6 g/dL (30.0-36.0); Mean Corpuscular Hemoglobin 23.8 pg (28.0-34.0); Mean Corpuscular Volume 83.4 fl (80-94); Mean Platelet Volume 10.1 fL (7.4-10.4); Monocytes # 0.8 10^3/uL (0.2-0.9); Neutrophils # 3.19 10^3/uL (1.8-7.7); Neutrophils % 55.2 %; Nucleated Red Blood Cells % 0 %; Platelet Count 197 10^3/cmm (130-400); Red Blood Count 3.86 10^6/uL (4.1-5.3); Red Cell Distribution Width 16.1 % (12.1-15.1); White Blood Count 5.8 10^3/uL (4.0-10.0)
[2021-09-14 06:17] LABS: Glucose Point of Care 88 mg/dL (70-110)
[2021-09-14 06:33] LABS: Anion Gap 11.7 (5-19); Blood Urea Nitrogen 23 mg/dL (8-23); Calcium 9.1 mg/dL (8.5-10.5); Carbon Dioxide 34 mmol/L (22-29); Chloride 98 mmol/L (98-107); Glomerular Filtration Rate 60.6 mL/min (90-130); Glucose 72 mg/dL (65-115); Magnesium 2.3 mg/dL (1.7-2.3); Osmolality Calculated 292 mOsm/kg (285-295); Potassium 3.7 mmol/L (3.5-5.1); Sodium 140 mmol/L (136-145)
[2021-09-14 07:09] VITALS: BP 143/80; PULSE 99; RESP 15; TEMP 36.4; O2SAT 97
[2021-09-14] MEDS: insulin glargine 100 units/1 mL 45 UNIT SUBCUT (08:16)
[2021-09-14] MEDS: lisinopril 5 mg Tablet PO (08:16)
[2021-09-14] MEDS: FUROsemide 10 mg/mL SDV 10mL 60 MG IVP (08:16)
[2021-09-14] MEDS: tamsulosin 0.4 mg Capsule PO (08:16)
[2021-09-14] MEDS: gabapentin 300 mg Capsule PO (08:16)
[2021-09-14] MEDS: pantoprazole DR 40 mg Tablet PO (08:17)
[2021-09-14] MEDS: metoprolol tartrate 25 mg Tablet 50 MG PO (08:17)
--- NOTE | 2021-09-14 09:20 | PM.DCS ---
Discharge Providers Date of Admission: 09/10/21 13:02 Date of Discharge: September 14, 2021 Attending Provider at Admission: Evan Stock DO Attending Provider at Discharge: Gopal Bills MD Primary Care Provider: Rachel Bills MD Diagnoses at Discharge Discharge Diagnosis (1) Acute on chronic diastolic (congestive) heart failure: Status: Acute (2) Atrial fibrillation with rapid ventricular response: Status: Acute (3) Hypochromic microcytic anemia: Status: Acute (4) COPD exacerbation: Status: Acute (5) Diabetes mellitus type 2, uncontrolled, with complications: Status: Acute (6) HTN (hypertension): Status: Acute Reason for Visit Reason for Visit: RESP DISTRESS Hospital Course Hospital Course Juan is a 66-year-old white male who presented to the hospital short of breath, and significantly anemic. He was found to be in acute diastolic heart failure. Hemoglobin drifted down less than 7. He was clearly iron deficient, and had heme positive stools although this was not grossly bloody. His Eliquis was discontinued for his atrial fibrillation. He was transfused 2 units of packed red blood cells. He received 2 transfusions of iron. IV Lasix was used during his hospital stay for diuresis. Protonix was increased to 40 mg twice daily. With these changes the patient improved significantly and became much less short of breath. I discussed with him holding his Eliquis until further evaluation of his GI tract could occur when his heart failure was better compensated. He agreed to this risk. As he was improving significantly but still weak, arrangements for transfer to a nursing facility occurred on September 14. He will follow-up with his primary care provider at the nursing facility, and have a CBC and BMP in 3 days. He will see Dr. Gordon in follow-up in clinic for consideration of EGD and colonoscopy. He will not take Eliquis in the interim. Discharge hemoglobin 9.2. Discharge creatinine 1.2. Overall negative fluid balance in the hospital 10.9 L of diuresis. He will continue his low-salt diet and fluid restriction as an outpatient. Physical Exam Narrative: General exam is a white male, no distress, on 2 to 3 L of oxygen which is his baseline Neck is supple Cardiovascular regular rate and rhythm. Heart sounds distant. No murmur Lungs clear. Diminished breath sounds at the bases. No wheezes or crackles Abdomen is soft nontender positive bowel sounds Extremities no cyanosis clubbing or edema, cap refill brisk Skin no rash Discharge Data Studies Completed and Pending Completed Studies During Hospitalization Category Date Time Status CT angio chest PE protcl [id number] Stat Cat Scan 09/10/21 10:53 Completed XR chest 1V portable [id number] Stat Exams 09/10/21 10:11 Completed Radiology Impressions Chest X-Ray 09/10/21 10:11 IMPRESSION: 1. Cardiomegaly. 2. Nonspecific left greater than right bibasilar opacities, favoring atelectasis or pneumonia. 3. There is blunting of both costophrenic angles, suggestive of small pleural effusions. Chest CTA 09/10/21 10:53 IMPRESSION: 1. Intra-abdominal ascites is present. 2. Small bilateral pleural effusions with compressive atelectasis. 3. No pulmonary artery embolism identified. 4. Cardiomegaly with pulmonary vascular congestion. 5. Nonspecific left basilar opacities, edema and/or pneumonia. Laboratory Results WBC 5.8 10^3/uL (4.0-10.0) 09/14/21 05:16 RBC 3.86 10^6/uL (4.1-5.3) L 09/14/21 05:16 Hgb 9.2 g/dL (11.7-16.6) L 09/14/21 05:16 Hct 32.2 % (42.0-52.0) L 09/14/21 05:16 MCV 83.4 fl (80-94) 09/14/21 05:16 MCH 23.8 pg (28.0-34.0) L 09/14/21 05:16 MCHC 28.6 g/dL (30.0-36.0) L 09/14/21 05:16 RDW 16.1 % (12.1-15.1) H 09/14/21 05:16 Plt Count 197 10^3/cmm (130-400) 09/14/21 05:16 MPV 10.1 fL (7.4-10.4) 09/14/21 05:16 Neut % (Auto) 55.2 % 09/14/21 05:16 Lymph % (Auto) 26.9 % 09/14/21 05:16 [place] % (Auto) 14.0 % 09/14/21 05:16 Eos % (Auto) 2.9 % 09/14/21 05:16 Baso % (Auto) 0.5 % 09/14/21 05:16 Neut # (Auto) 3.19 10^3/uL (1.8-7.7) 09/14/21 05:16 Lymph # (Auto) 1.6 10^3/uL (0.8-4.8) 09/14/21 05:16 [place] # (Auto) 0.8 10^3/uL (0.2-0.9) 09/14/21 05:16 Eos # (Auto) 0.2 10^3/uL (0.0-0.8) 09/14/21 05:16 Baso # (Auto) 0.0 10^3/uL (0.0-0.1) 09/14/21 05:16 Nucleated RBC % (auto) 0 % 09/14/21 05:16 Nucleated RBCs # 0.0 /100WBC 09/14/21 05:16 Haptoglobin 212.0 mg/L (30-200) H 09/11/21 04:19 D-Dimer 2.36 ug/mIFEU (0-0.59) H 09/10/21 10:31 Specimen Type Venous 09/10/21 11:57 Sample Site Not Reportable 09/10/21 11:57 Matthew Test N/a 09/10/21 11:57 VBG pH 7.39 (7.32-7.42) 09/10/21 11:57 VBG pCO2 53.1 mmHg (41-51) H 09/10/21 11:57 VBG pO2 29.2 mmHg (25-40) 09/10/21 11:57 VBG HCO3 32.4 mmol/L (24-28) H 09/10/21 11:57 VBG Base Excess 6.7 mmol/L (-3.0-3.0) H 09/10/21 11:57 VBG Hematocrit 23.2 % (42-52) L 09/10/21 11:57 O2 Delivery Device Not Reportable 09/10/21 11:57 O2 Liters/Min 2.0 % 09/10/21 11:57 Emanations Analysis Technician ID Clarrrro 09/10/21 11:57 Sodium 140 mmol/L (136-145) 09/14/21 05:16 Potassium 3.7 mmol/L (3.5-5.1) 09/14/21 05:16 Chloride 98 mmol/L (98-107) 09/14/21 05:16 Carbon Dioxide 34 mmol/L (22-29) H 09/14/21 05:16 Anion Gap 11.7 (5-19) 09/14/21 05:16 BUN 23 mg/dL (8-23) 09/14/21 05:16 Creatinine 1.2 mg/dL (0.7-1.2) 09/14/21 05:16 GFR Calculation 60.6 mL/min (90-130) L 09/14/21 05:16 Glucose 72 mg/dL (65-115) 09/14/21 05:16 POC Glucose 88 mg/dL (70-110) 09/14/21 06:07 Estimat Average Glucose 151 09/11/21 04:19 Hemoglobin A1c 6.9 % (4.0-6.0) H 09/11/21 04:19 Calculated Osmolality 292 mOsm/kg (285-295) 09/14/21 05:16 Calcium 9.1 mg/dL (8.5-10.5) 09/14/21 05:16 Magnesium 2.3 mg/dL (1.7-2.3) 09/14/21 05:16 Iron 18 ug/dL (59-158) L 09/11/21 04:19 TIBC 342 mcg/dl 09/11/21 04:19 % Saturation 5.2 % (20-50) L 09/11/21 04:19 Unsat Iron Binding 324 ug/dL (112-347) 09/11/21 04:19 Transferrin 308 mg/dL (200-360) 09/11/21 04:19 Ferritin 40 ng/mL (30-400) 09/11/21 04:19 Total Bilirubin 0.3 mg/dL (0.15-1.2) 09/13/21 04:30 AST 22 U/L (0-40) 09/13/21 04:30 ALT 11 U/L (0-41) 09/13/21 04:30 Alkaline Phosphatase 167 IU/L (40-130) H 09/13/21 04:30 Troponin T Baseline 39 ng/L (0-15) H 09/10/21 10:31 Troponin T 120 Minute 39.02 ng/L (0-15) H 09/10/21 11:57 Delta Troponin T 0.02 ABS# (0-10) 09/10/21 11:57 Troponin T Hi Sens 6Hr 44.58 ng/L (0-15) H 09/10/21 16:40 Troponin T Hi Sens 6Hr Delta 5.58 ng/L (0-12) 09/10/21 16:40 NT-Pro-B Natriuret Pep 1030 pg/mL (0-125) H 09/10/21 10:31 Total Protein 7.2 g/dL (6.6-8.7) 09/13/21 04:30 Albumin 3.0 g/dL (3.5-5.2) L 09/13/21 04:30 Globulin 4.2 g/dL (1.3-4.6) 09/13/21 04:30 Triglycerides 69 mg/dL (0-150) 09/11/21 04:19 Cholesterol 108 mg/dL (0-200) 09/11/21 04:19 LDL Cholesterol, Calc 61 mg/dL (50-129) 09/11/21 04:19 HDL Cholesterol 33 mg/dL (60-100) L 09/11/21 04:19 LDL/HDL Ratio 1.85 RATIO (0.00-3.22) 09/11/21 04:19 Cholesterol/HDL Ratio 3.27 mg/dL (1.0-5.00) 09/11/21 04:19 TSH 0.67 uIU/mL (0.27-4.20) 09/11/21 04:19 Urine Color Colorless (Yellow) 09/11/21 17:00 Urine Appearance Clear (CLEAR) 09/11/21 17:00 Urine pH 5 (5-7) 09/11/21 17:00 Ur Specific [place] 1.010 (1.005-1.030) 09/11/21 17:00 Urine Protein Neg (Negative) 09/11/21 17:00 Urine Glucose (UA) Norm (Normal) 09/11/21 17:00 Urine Ketones Negative (Negative) 09/11/21 17:00 Urine Blood Neg (Negative) 09/11/21 17:00 Urine Nitrate Negative (Negative) 09/11/21 17:00 Urine Bilirubin Neg (Negative) 09/11/21 17:00 Urine Urobilinogen Norm mg/dL (Negative) 09/11/21 17:00 Ur Leukocyte Esterase Negative (Negative) 09/11/21 17:00 Urine RBC None /hpf (0-2) 09/11/21 17:00 Urine WBC None /hpf (0-5) 09/11/21 17:00 Ur Squamous Epith Cells None /hpf (0-5) 09/11/21 17:00 Amorphous Sediment Not Reportable 09/11/21 17:00 Urine Bacteria Trace /hpf (NONE) 09/11/21 17:00 SARS-CoV-2 Ag (Rapid) Negative (Negative) 09/10/21 10:31 Blood Type O Negative 09/11/21 09:00 Rho(D) Type Negative 09/11/21 09:00 Antibody Screen Negative 09/11/21 09:00 Crossmatch See Detail 09/11/21 09:00 Vitals Last Vital Signs Temp 97.5 F L 09/14/21 07:09 Pulse 99 09/14/21 07:09 Resp 15 09/14/21 07:09 BP 143/80 09/14/21 07:09 Pulse Ox 97 09/14/21 07:09 Discharge Plan Discharge Patient Disposition: Xfer SNF Condition: Stable Prescriptions: New pantoprazole 40 mg Tablet,Delayed Release (Dr/Ec) 40 mg PO BID Qty: 60 0RF bumetanide 1 mg tablet 1 mg PO BID Qty: 60 0RF potassium chloride 10 mEq capsule, extended release 10 meq PO DAILY Qty: 30 0RF metoprolol tartrate 25 mg Tablet 50 mg PO BID@0900,2100 Qty: 60 0RF Continued metformin 500 mg tablet 500 mg PO QAM 0RF sertraline 100 mg tablet 100 mg PO QAM 0RF clonazepam 1 mg tablet 0.5 mg PO BEDTIME PRN (Reason: Sleep) 0RF levothyroxine 50 mcg tablet 50 mcg PO QPM 0RF insulin aspart U-100 [Novolog Flexpen U-100 Insulin] 100 unit/mL (3 mL) insulin pen See Rx Instructions .ROUTE .COMPLEX 0RF Rx Instructions: sliding scale subcutaneously before meals lisinopril 5 mg tablet 5 mg PO DAILY@0800 0RF acetaminophen 325 mg Tablet 650 mg PO Q6H PRN (Reason: Pain) 0RF ipratropium-albuterol 0.5 mg-3 mg(2.5 mg base)/3 mL Solution For Nebulization 3 ml INHALATION Q6H PRN (Reason: Shortness Of Breath) 0RF tamsulosin 0.4 mg Capsule 0.4 mg PO DAILY@0900 0RF gabapentin 300 mg Capsule 300 mg PO BID@08,20 0RF alum-mag hydroxide-simeth 200-200-20 mg/5 mL Suspension 30 ml PO Q4H PRN (Reason: Heartburn) 0RF Lantus Solostar U-100 Insulin 100 unit/mL (3 mL) Insulin Pen 25 unit SUBCUT BID 0RF trazodone 150 mg Tablet 150 mg PO BEDTIME 0RF Acidophilus Capsule 5,000 mmu cells PO BID 0RF Discontinued pantoprazole 40 mg Tablet,Delayed Release (Dr/Ec) 40 mg PO DAILY Qty: 30 0RF Eliquis 5 mg Tablet 5 mg PO BID@0900,2100 Qty: 60 0RF furosemide [Lasix] 40 mg tablet 40 mg PO DAILY Qty: 30 0RF Discharge Orders: Discharge Order (Routine); Ordered 09/14/21 Ordered By: Gopal Bills Referrals: [facility] [Outside] [facility] [Outside] Rachel Bills MD [Primary Care Provider] - 4-7 days (At nursing facility CBC, BMP in 3 days) Wesley Gordon MD [Physician] - 7-10 days (Referral for evaluation for EGD and colonoscopy, anemia) Discharge Diet: Cardiac and Diabetic Discharge Activity: Increase activity as tolerated Activity Restrictions/Additional Instructions: CBC and BMP in 3 days Weigh daily, notify physician if weight gain greater than 3 pounds of baseline 2 straight days or any worsening fluid gain Continue 2 L oxygen on discharge, titrate for sat greater than or equal to 92% Low-salt diet 1500 cc fluid restriction Discharge Attestations Time Spent in Discharge Care*: greater than 30 min Quality Metrics Clinical Quality Measures [ No reported AMI, CVA or VTE this stay] Coding Level of Care Code Acute Chg FW DC note Diagnoses Acute on chronic diastolic (congestive) heart failure I50.33 Atrial fibrillation with rapid ventricular response I48.91 Hypochromic microcytic anemia D50.9 COPD exacerbation J44.1 Diabetes mellitus type 2, uncontrolled, with complications HTN (hypertension) I10
[2021-09-14 09:45] VITALS: PULSE 89; RESP 16; O2SAT 98
[2021-09-14 11:36] LABS: Glucose Point of Care 123 mg/dL (70-110)
[2021-09-14 12:00] VITALS: BP 119/67; PULSE 94; RESP 15; TEMP 36.8; O2SAT 90
[2021-09-14 14:19] VITALS: BP 119/67; PULSE 94; RESP 15; TEMP 36.8; O2SAT 90
== END 2021-09-14 14:19 | disposition skilled nursing facility (03) | DRG 291 ==
LOC: ER 13:08 → MEDSURG 13:25 → CSU 09-11 18:07 → MEDSURG 09-11 18:10
PROVIDERS: Admitting Provider Family Medicine; Emergency Provider Emergency Medicine; PCP Family Medicine; Visit Provider Internal Medicine
DX: I11.0 Hypertensive heart disease with heart failure (principal); I50.33 Acute on chronic diastolic (congestive) heart failure; J44.1 Chronic obstructive pulmonary disease with (acute) exacerbation; E87.1 Hypo-osmolality and hyponatremia; I48.20 Chronic atrial fibrillation, unspecified; D50.9 Iron deficiency anemia, unspecified; Z79.84 Long term (current) use of oral hypoglycemic drugs; Z79.4 Long term (current) use of insulin; Z87.891 Personal history of nicotine dependence; K21.9 Gastro-esophageal reflux disease without esophagitis; E11.42 Type 2 diabetes mellitus with diabetic polyneuropathy; G47.33 Obstructive sleep apnea (adult) (pediatric); R19.5 Other fecal abnormalities; F32.A Depression, unspecified; F41.9 Anxiety disorder, unspecified
CPT/HCPCS: 36415; 36416; 36430; 71045; 71275; 80048; 80053; 80061; 81001; 82274; 82728; 82803; 82962; 83010; 83036; 83540; 83550; 83735; 83880; 84443; 84466; 84484; 85014; 85018; 85025; 85378; 86850; 86900; 86920; 87426; 93005; 96372; 96374; 97110; 97116; 97161; 97530; 99285; J1644; J1756; J1815; J1940; J2250; J3010; J3490; P9016; Q9967

== ENCOUNTER → 2021-09-26 09:30 | Outpatient (BNVA) | payer MEDICARE, SELFPAY | PROVIDERS: PCP Family Medicine; Visit Provider Surgery | DX: D50.9 Iron deficiency anemia, unspecified (principal); K21.9 Gastro-esophageal reflux disease without esophagitis | CPT/HCPCS: 99204 ==

== ENCOUNTER → 2021-10-05 10:07 | Outpatient (BNVA) | payer MEDICARE, SELFPAY | PROVIDERS: PCP Family Medicine; Visit Provider Internal Medicine Critical Care Medicine | DX: J44.9 Chronic obstructive pulmonary disease, unspecified (principal); J96.11 Chronic respiratory failure with hypoxia; I50.30 Unspecified diastolic (congestive) heart failure; I95.9 Hypotension, unspecified; F17.210 Nicotine dependence, cigarettes, uncomplicated; E11.8 Type 2 diabetes mellitus with unspecified complications | CPT/HCPCS: 99204 ==

== ENCOUNTER 2021-10-05 10:50 | Emergency (ER) | payer MEDICARE, SELFPAY ==
[2021-10-05 11:03] VITALS: BP 111/62; PULSE 101; RESP 18; TEMP 36.8; O2SAT 94
--- NOTE | 2021-10-05 11:20 | PC.NURSE ---
Placed on cardiac catheterization technician, showing a-fib with rate of 104
--- NOTE | 2021-10-05 11:20 | ED_ITS ---
HPI - Dizziness General: Chief Complaint: Dizziness Stated Complaint: SYNCOPE Time Seen by Provider: 10/05/21 10:57 Source: patient Mode of arrival: wheelchair Limitations: no limitations History of Present Illness: HPI Narrative: This patient was brought to the emergency department from outpatient clinic. He was there for a follow-up appointment and felt lightheaded and dizzy and felt as if he might pass out . He notified staff who mobilized assistance and transported him to the emergency department. He denies any concomitant chest pain, focal weakness, difficulty with speech etc. He has a history of atrial fibrillation, congestive heart failure, diabetes. He does admit to not eating anything today and did not take his usual a.m. insulin. He recently returned h [facility] within the last few days from a SNF stay after an inpatient hospitalization for anemia. He was taken off his anticoagulants for stroke prevention [facility] due to his anemia. At that time he also received packed red cells as well as iron infusion. He states he is not had any dark stools now he is having normal colored stools he is having urine output. He states he had a few loose stools yesterday but he no more issues throughout the night. He denies any known exposure to infectious disease fevers chills etc. He states while driving his vehicle in the parking lot before his hospital appointment he had a brief episode of chest discomfort that he attributed to possibly being related the fact that he is driving predominantly with his left arm due to his right arm being less functional after multiple surgeries. 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 MD elicited complaint: lightheadedness and near syncope Severity: moderate Description: lightheadedness Associated symptoms: Reports no associated symptoms; Denies chills, headache(s), nausea, palpitations or vomiting Associated neuro symptoms: Reports no associated symptoms; Deny numbness in extremities Review of Systems Const: Denies: fever(s), chills or body aches Eyes: Denies: change in vision or blurry vision ENMT: Denies: throat pain or odynophagia Card: Reports: irregular heart rhythm; Denies: palpitations Resp: Denies: productive cough, non-productive cough, wheezing or stridor GI: Denies: abdominal pain, nausea, vomiting, hematochezia or melena : Denies: flank pain, difficulty urinating, dysuria or urinary frequency Musc: Reports: limited range of motion (Right shoulder chronic); Denies: neck pain, extremity pain or extremity swelling Skin/Breast: Denies: rash, pruritus or erythema Neuro: Denies: headache(s), numbness in extremities, weakness in extremities, vertigo, Slurred speech present, difficulty communicating thoughts or seizure- like activity Endo: Denies: polyuria, polydipsia or tired all the time PFSH ED PFSH: Medical History Brain aneurysm COPD (chronic obstructive pulmonary disease) Diabetes Necrotizing fasciitis of shoulder region Surgical History History of shoulder surgery Social History Smoking and tobacco status: current every day smoker (2/day) cigarettes Packs smoked per day: 2 Years cigarettes smoked: 50 [ Other cigarette details: started at age 16] Alcohol intake: never Physical Exam Narrative: EXAM NARRATIVE: The patient is alert makes good eye contact answers questions in a goal-directed fashion. Const: COMMON NORMALS: no acute distress and patient oriented x3 NUTRITIONAL APPEARANCE: overweight HENMT: COMMON NORMALS: normocephalic, atraumatic, Normal nasal mucous membranes and turbinates present, moist oral mucous membranes and oropharynx normal HEAD & SCALP: normocephalic and atraumatic FACE & SINUS: face not symmetric (He has right-sided facial weakness) NOSE: Normal nasal mucous membranes and turbinates present Eye: COMMON NORMALS: Equal, round and reactive pupils present, EOMs intact bilaterally and no scleral icterus PUPIL: Yes Equal, round and reactive pupils present Neck/C-Spine: COMMON NORMALS: full ROM, supple, no JVD and Thyroid normal THYROID: Thyroid normal Chest: COMMONS NORMALS: normal inspection of the chest and normal palpation of entire chest wall Resp: COMMON NORMALS: normal respiratory effort, No retractions, No use of accessory muscles and clear to auscultation bilaterally AUSCULTATION: clear to auscultation bilaterally Cardio: COMMON NORMALS: no JVD, No murmurs present (Cardio) and Peripheral pulses 2+ throughout RHYTHM: abnormal rhythm irregularly irregular PERIPHERAL PULSES: Peripheral pulses 2+ throughout GI: COMMON NORMALS: Normal to inspection, nondistended, normoactive bowel sounds present (He has a obese protuberant down abdomen without scars masses or other abnor), Soft to palpation, non-tender, No hepatosplenomegaly present and no masses PALPATION: Yes Soft to palpation and Yes No hepatosplenomegaly present : COMMON NORMALS: Yes no CVA tenderness BLADDER/KIDNEY EXAM: Yes no CVA tenderness Back/Pelvis: COMMON NORMALS: no CVA tenderness, thoracic and lumbar spine normal to inspection, no thoracic nor lumbar tenderness and thoraco-lumbar ROM normal Extremity: GENERAL: Yes normal exam except as noted, No calf tenderness and No cyanosis RIGHT UPPER EXTREMITY: Yes shoulder joint Right shoulder: Yes Right shoulder joint ROM exam (Markedly diminished right shoulder range of motion) Neuro: COMMON NORMALS: patient oriented x3, moves all extremities, no focal motor deficits and no sensory deficits noted CRANIAL NERVES: Yes CN VII (facial) (Weakness) Laterality: right SPEECH: speech normal Course Reevaluation(s): Reevaluation #1: Initial labs noted. His hemoglobin is somewhat stable and consistent with prior hemoglobins since discharge. His initial troponin is elevated. He is no longer having current chest pain however will need to go ahead and do a serial troponin evaluation to ensure that there is no ongoing ACS or other worrisome condition. Time: 12:32 Reevaluation #2: Repeat troponin shows a decrease his high-sensitivity troponin value. Review of past chart reveals that he is had troponin leak in the past which is likely related to his chronic atrial fibrillation and cardiac dysfunction. He was seen by cardiology during his last hospitalization. Patient states he feels back to baseline and desires to be discharged. No evidence at this time of ongoing emergency medical condition. Should note that the patient normally wears oxygen at 24 hours a day but this morning when he was headed to the doctor's office he had discovered that his oxygen concentrator was not functioning so therefore had his oxygen off. I am not sure if this contributed to his current presentation but certainly consideration. No evidence at this time of ACS or other ongoing emergency medical condition. Patient voices understanding and acknowledges all discussion. Time: 14:31 Vital Signs: Vital signs: Vital Signs Temperature 98.2 F 10/05/21 11:03 Pulse Rate 76 10/05/21 12:57 Respiratory Rate 16 10/05/21 12:57 Blood Pressure 104/79 10/05/21 12:57 Pulse Oximetry 94 10/05/21 12:57 MDM - Dizziness Medical Decision Making Patient with multiple medical problems to include cardiac dysfunction, atrial fibrillation etc. presented to emergency department from clinic with lightheadedness and possible near syncope symptoms. His work-up and observation time in emergency department been reassuring. No evidence at this time of an ongoing emergency medical condition. Certainly does not suggest CABLE HOOKER related event, ACS, hyper or hypoglycemia etc. After period of observation and repeat ancillary studies he is stable to be discharged to outpatient follow-up. Medical Records I reviewed the patient's medical records. Prior cardiology work-up noted. Prior elevated troponin T levels noted. Lab Data I reviewed the patient's lab results. : 10/05/21 11:32 10/05/21 11:32 Laboratory Results WBC 7.2 10^3/uL (4.0-10.0) 10/05/21 11:32 RBC 3.77 10^6/uL (4.1-5.3) L 10/05/21 11:32 Hgb 9.5 g/dL (11.7-16.6) L 10/05/21 11:32 Hct 32.2 % (42.0-52.0) L 10/05/21 11:32 MCV 85.4 fl (80-94) 10/05/21 11:32 MCH 25.2 pg (28.0-34.0) L 10/05/21 11:32 MCHC 29.5 g/dL (30.0-36.0) L 10/05/21 11:32 RDW 18.1 % (12.1-15.1) H 10/05/21 11:32 Plt Count 201 10^3/cmm (130-400) 10/05/21 11:32 MPV 10.6 fL (7.4-10.4) H 10/05/21 11:32 Neut % (Auto) 68.6 % 10/05/21 11:32 Lymph % (Auto) 20.3 % 10/05/21 11:32 [place] % (Auto) 8.6 % 10/05/21 11:32 Eos % (Auto) 1.3 % 10/05/21 11:32 Baso % (Auto) 0.6 % 10/05/21 11:32 Neut # (Auto) 4.95 10^3/uL (1.8-7.7) 10/05/21 11:32 Lymph # (Auto) 1.5 10^3/uL (0.8-4.8) 10/05/21 11:32 [place] # (Auto) 0.6 10^3/uL (0.2-0.9) 10/05/21 11:32 Eos # (Auto) 0.1 10^3/uL (0.0-0.8) 10/05/21 11:32 Baso # (Auto) 0.0 10^3/uL (0.0-0.1) 10/05/21 11:32 Nucleated RBC % (auto) 0 % 10/05/21 11:32 Nucleated RBCs # 0.0 /100WBC 10/05/21 11:32 Sodium 138 mmol/L (136-145) 10/05/21 11:32 Potassium 3.7 mmol/L (3.5-5.1) 10/05/21 11:32 Chloride 96 mmol/L (98-107) L 10/05/21 11:32 Carbon Dioxide 32 mmol/L (22-29) H 10/05/21 11:32 Anion Gap 13.7 (5-19) 10/05/21 11:32 BUN 16 mg/dL (8-23) 10/05/21 11:32 Creatinine 1.2 mg/dL (0.7-1.2) 10/05/21 11:32 GFR Calculation 60.6 mL/min (90-130) L 10/05/21 11:32 Glucose 182 mg/dL (65-115) H 10/05/21 11:32 Calculated Osmolality 292 mOsm/kg (285-295) 10/05/21 11:32 Calcium 9.3 mg/dL (8.5-10.5) 10/05/21 11:32 Troponin T Gen 5 ng/L 46 ng/L (0-15) H 10/05/21 11:32 Troponin T 120 Minute 40.51 ng/L (0-15) H 10/05/21 13:32 Delta Troponin T -5.49 ABS# (0-10) L 10/05/21 13:32 EKG Data EKG 1: I personally reviewed and interpreted this EKG as follows: EKG interpretation time: 11:21 Interpretation: Resting EKG shows a ventricular rate of 103 bpm. Rhythm consistent with atrial fibrillation with a rapid ventricular response. QRS duration is normal. QTc normal. No discernible acute ST-T wave changes at this time. Consistent with prior tracings available in the system. EKG 2: I personally reviewed and interpreted this EKG as follows: EKG interpretation time: 14:22 Interpretation: Second EKG this date reveals atrial fibrillation with a ventricular rate of 81 bpm. Normal intervals normal axis no other acute ST-T wave changes noted at this time. No change from previous. Discharge Plan Discharge Patient Disposition: Home Clinical Impression: Atrial fibrillation, Chronic respiratory failure with hypoxia, Heart failure with preserved ejection fraction Condition: Stable Prescriptions: No Action Anoro Ellipta 62.5-25 mcg/actuation blister with device 1 inh inhalation DAILY 60 Days Qty: 60 3RF metformin 500 mg tablet 500 mg PO QAM 0RF sertraline 100 mg tablet 100 mg PO QAM 0RF clonazepam 1 mg tablet 0.5 mg PO BEDTIME PRN (Reason: Sleep) 0RF levothyroxine 50 mcg tablet 50 mcg PO QPM 0RF insulin aspart U-100 [Novolog Flexpen U-100 Insulin] 100 unit/mL (3 mL) insulin pen See Rx Instructions .ROUTE .COMPLEX 0RF Rx Instructions: sliding scale subcutaneously before meals lisinopril 5 mg tablet 5 mg PO DAILY@0800 0RF acetaminophen 325 mg Tablet 650 mg PO Q6H PRN (Reason: Pain) 0RF ipratropium-albuterol 0.5 mg-3 mg(2.5 mg base)/3 mL Solution For Nebulization 3 ml INHALATION Q6H PRN (Reason: Shortness Of Breath) 0RF tamsulosin 0.4 mg Capsule 0.4 mg PO DAILY@0900 0RF gabapentin 300 mg Capsule 300 mg PO BID@08,20 0RF alum-mag hydroxide-simeth 200-200-20 mg/5 mL Suspension 30 ml PO Q4H PRN (Reason: Heartburn) 0RF Lantus Solostar U-100 Insulin 100 unit/mL (3 mL) Insulin Pen 25 unit SUBCUT BID 0RF trazodone 150 mg Tablet 150 mg PO BEDTIME 0RF Acidophilus Capsule 5,000 mmu cells PO BID 0RF pantoprazole 40 mg Tablet,Delayed Release (Dr/Ec) 40 mg PO BID Qty: 60 0RF metoprolol tartrate 25 mg Tablet 50 mg PO BID@0900,2100 Qty: 60 0RF bumetanide 1 mg tablet 1 mg PO BID Qty: 60 0RF potassium chloride 10 mEq capsule, extended release 10 meq PO DAILY Qty: 30 0RF Discharge Orders: Discharge ED (Routine); Ordered 10/05/21 Ordered By: Juan Howard Referrals: Rachel Bills MD [Primary Care Provider] - Discharge Diet: Usual diet Discharge Activity: Increase activity as tolerated Patient Instructions: Opioid Safety Activity Restrictions/Additional Instructions: Follow-up with your regular scheduled appointments. Ensure that you are oxygen concentrator and other sources of supplemental oxygen are working. Wear them as previously prescribed. Take all your usual medications as prescribed. If you develop any sustained chest pain of more than an hour, increasing shortness of breath or other constitutional symptoms of concern return to this or the nearest emergency department. Coding Level of Care Code ED Forensic Identification Specialist for Josh Gallego Exam Comprehensive
--- NOTE | 2021-10-05 11:25 | ECG_ITS ---
[facility] Test Date: 2021-10-05 Pat Name: Juan Thomas Department: Room: Gender: Male Retrieval Specialist: : 1955 Requested By: Juan Howard Order Number: [id number] Ratliff MD: Melania Massey M.D. Measurements Intervals [place] Rate: 103 P: [place]: QRS: 3 QRSD: 97 T: 62 QT: 359 QTc: 472 Interpretive Statements ATRIAL FIBRILLATION WITH RAPID VENTRICULAR RESPONSE ANTEROSEPTAL MYOCARDIAL INFARCTION , OF INDETERMINATE AGE [40+ ms Q WAVE IN V1-V4] Compared to ECG 09/10/2021 10:29:35 Myocardial infarct finding now present Electronically Signed On 10-05-2021 12:23:27 CDT by Melania Massey M.D. [id number]
[2021-10-05 11:49] LABS: Basophils % 0.6 %; Eosinophils # 0.1 10^3/uL (0.0-0.8); Eosinophils % 1.3 %; Hematocrit 32.2 % (42.0-52.0); Hemoglobin 9.5 g/dL (11.7-16.6); Lymphocytes # 1.5 10^3/uL (0.8-4.8); Lymphocytes % 20.3 %; Mean Corpuscular HGB Conc 29.5 g/dL (30.0-36.0); Mean Corpuscular Hemoglobin 25.2 pg (28.0-34.0); Mean Corpuscular Volume 85.4 fl (80-94); Mean Platelet Volume 10.6 fL (7.4-10.4); Monocytes # 0.6 10^3/uL (0.2-0.9); Monocytes % 8.6 %; Neutrophils # 4.95 10^3/uL (1.8-7.7); Neutrophils % 68.6 %; Nucleated Red Blood Cells % 0 %; Platelet Count 201 10^3/cmm (130-400); Red Blood Count 3.77 10^6/uL (4.1-5.3); Red Cell Distribution Width 18.1 % (12.1-15.1); White Blood Count 7.2 10^3/uL (4.0-10.0)
[2021-10-05 12:05] LABS: Troponin T (5th) Once 46 ng/L (0-15)
[2021-10-05 12:06] LABS: Anion Gap 13.7 (5-19); Blood Urea Nitrogen 16 mg/dL (8-23); Calcium 9.3 mg/dL (8.5-10.5); Carbon Dioxide 32 mmol/L (22-29); Chloride 96 mmol/L (98-107); Glomerular Filtration Rate 60.6 mL/min (90-130); Glucose 182 mg/dL (65-115); Osmolality Calculated 292 mOsm/kg (285-295); Potassium 3.7 mmol/L (3.5-5.1); Sodium 138 mmol/L (136-145)
[2021-10-05 12:57] VITALS: BP 104/79; PULSE 76; RESP 16; O2SAT 94
--- NOTE | 2021-10-05 12:57 | PC.NURSE ---
Pt ate a snack, resting in bed without complaints at this time.
[2021-10-05 14:00] LABS: Troponin 5 2HR 40.51 ng/L (0-15)
[2021-10-05 14:04] LABS: Troponin 5 2HR Delta -5.49 ABS# (0-10)
--- NOTE | 2021-10-05 14:31 | ECG_ITS ---
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 Measurements Intervals [place] Rate: 81 P: [place]: QRS: 7 QRSD: 98 T: 31 QT: 381 QTc: 442 Interpretive Statements ATRIAL FIBRILLATION ANTEROSEPTAL MYOCARDIAL INFARCTION , PROBABLY OLD [40+ ms Q WAVE IN V1-V4] Compared to ECG 10/05/2021 11:19:17 No significant changes Electronically Signed On 10-05-2021 16:16:39 CDT by Shaka Varela M.D. [id number]
[2021-10-05 15:22] VITALS: BP 104/79; PULSE 76; RESP 18; TEMP 36.6; O2SAT 96
[2021-10-05 23:22] LABS: Glucose Point of Care 183 mg/dL (70-110)
== END 2021-10-05 15:23 | disposition home or self-care (01) ==
PROVIDERS: Emergency Provider Emergency Medicine; PCP Family Medicine
DX: I48.20 Chronic atrial fibrillation, unspecified (principal); J96.11 Chronic respiratory failure with hypoxia; I50.32 Chronic diastolic (congestive) heart failure; E11.9 Type 2 diabetes mellitus without complications; D64.9 Anemia, unspecified; F17.210 Nicotine dependence, cigarettes, uncomplicated; Z99.81 Dependence on supplemental oxygen; Z79.4 Long term (current) use of insulin; Z79.84 Long term (current) use of oral hypoglycemic drugs
CPT/HCPCS: 36416; 80048; 82962; 84484; 85025; 93005; 99283

== ENCOUNTER 2021-10-18 07:14 | Day surgery (SDC) | payer MEDICARE, SELFPAY ==
[2021-10-16 10:36] VITALS: BMI 39.3
[2021-10-18 07:34] VITALS: BP 121/77; PULSE 81; RESP 20; TEMP 36.1; O2SAT 97
--- NOTE | 2021-10-18 07:53 | ANES.PREANE2 ---
Pre-Anesthetic Assessment Height/Weight: Height 1.85 m Weight 135.171 kg Temp Pulse Resp BP Pulse Ox 97.0 F L 81 20 H 121/77 97 10/18/21 07:34 10/18/21 07:34 10/18/21 07:34 10/18/21 07:34 10/18/21 07:34 Preop Diagnosis: diagnostic Operation Date: 10/18/21 08:30 Proposed Procedures p EGD [id number]/k21.96/z12.11(Not Applicable) - Wesley Gordon MD s Colonoscopy(Not Applicable) - Wesley Gordon MD Familial anesthetic complications: None Was Beta Mary Beth taken within 24 hours: Yes Was Clonidine taken within 24 hours: N/A Last intake: Intake Last Liquid Date 10/17/21 Last Liquid Time 22:30 Last Solid Date 10/16/21 Social Tobacco and No alcohol Exam alert, oriented x 3 and clear to auscultation bilaterally Airway Submandibular: within normal limits Cervical ROM: within normal limits Mallampati: Class II Dentition: false Pulmonary Chronic Obstructive Pulmonary Disease CV/HEM Atrial Fibrillation, Anemia, Arrythmia, Congestive Heart Failure and Hypertension GI Gastroesophageal Reflux Disease Metabolic Diabetes Mellitus, Hyperlipidemia, Morbid Obesity and Thyroid Disease Neuropsych Anxiety and Depression Anesthetic Plan ASA status: 3 Anesthesia: MAC Medications/Allergies Home Medications Medication Instructions Recorded Confirmed Last Taken Type lisinopril 5 mg tablet 5 mg PO DAILY@0800 03/23/21 10/16/21 10/17/21 History aluminum-mag hydroxide-simethicone 30 ml PO Q4H PRN 06/19/21 10/16/21 10/17/21 History 200 mg-200 mg-20 mg/5 mL oral susp gabapentin 300 mg capsule 300 mg PO BID@08,20 06/19/21 10/16/21 10/17/21 History insulin glargine 100 unit/mL (3 25 unit SUBCUT BID 06/19/21 10/16/21 10/17/21 History mL) subcutaneous pen (Lantus Solostar U-100 Insulin) ipratropium 0.5 mg-albuterol 3 mg 3 ml INHALATION Q6H PRN 06/19/21 10/16/21 10/17/21 History (2.5 mg base)/3 mL nebulization soln tamsulosin 0.4 mg capsule 0.4 mg PO DAILY@0900 06/19/21 10/16/21 10/17/21 History clonazepam 1 mg tablet 0.5 mg PO BEDTIME PRN 08/07/21 10/16/21 10/17/21 History insulin aspart U-100 100 unit/mL See Rx Instructions .ROUTE .COMPLEX 08/07/21 10/16/21 10/17/21 History (3 mL) subcutaneous pen (Novolog Flexpen U-100 Insulin aspart) levothyroxine 50 mcg tablet 50 mcg PO QPM 08/07/21 10/16/21 10/17/21 History metformin 500 mg tablet 500 mg PO QAM 08/07/21 10/16/21 10/17/21 History sertraline 100 mg tablet 100 mg PO QAM 08/07/21 10/16/21 10/17/21 History Lactobacillus acidophilus 5,000 mmu cells PO BID 09/10/21 10/16/21 10/17/21 History (Acidophilus) trazodone 150 mg tablet 150 mg PO BEDTIME 09/10/21 10/16/21 10/17/21 History bumetanide 1 mg tablet 1 mg PO BID #60 tab 09/14/21 10/16/21 10/17/21 Rx metoprolol tartrate 25 mg tablet 50 mg PO BID@0900,2100 #60 tab 09/14/21 10/16/21 10/18/21 Rx pantoprazole 40 mg tablet,delayed 40 mg PO BID #60 tab 09/14/21 10/16/21 10/17/21 Rx release potassium chloride 10 mEq 10 meq PO DAILY #30 cap 09/14/21 10/16/21 10/17/21 Rx capsule,extended release glycopyrrolate 9 mcg-formoterol 2 puff INHALATION Q12H 30 Days 10/09/21 10/16/21 10/17/21 Rx 4.8 mcg HFA aerosol inhaler #10.7 g (Bevespi Aerosphere) Allergies Allergy/AdvReac Type Severity Reaction Status Date / Time No Known Allergies Allergy Verified 10/16/21 10:33 [facility] Anesthesia Medical History Brain aneurysm COPD (chronic obstructive pulmonary disease) Diabetes Necrotizing fasciitis of shoulder region Surgical History History of shoulder surgery Social History Smoking and tobacco status: current every day smoker (2/day) cigarettes Packs smoked per day: 2 Years cigarettes smoked: 50 [ Other cigarette details: started at age 16] Alcohol intake: never Data Anesthesia Cardiac Studies: Echocardiogram 08/07/21
[2021-10-18] MEDS: sodium chloride 0.9% 1,000 ML 30 ML IV (08:06)
--- NOTE | 2021-10-18 08:28 | W.PM.OPSFHP ---
Same Day Surgery H&P Indication for Procedure/HPI DATE OF PROCEDURE: October 18, 2021 CHIEF COMPLAINT/INDICATIONFOR SURGICAL PROCEDURE: egd/colon PREOP DIAGNOSIS: diagnostic PLANNED PROCEDURE: Operation Date: 10/18/21 08:30 Proposed Procedures p EGD [id number]/k21.96/z12.11(Not Applicable) - Wesley Gordon MD s Colonoscopy(Not Applicable) - Wesley Gordon MD Medications/Allergies* Home Medications Medication Instructions Recorded Confirmed Type lisinopril 5 mg tablet 5 mg PO DAILY@0800 03/23/21 10/16/21 History aluminum-mag hydroxide-simethicone 30 ml PO Q4H PRN 06/19/21 10/16/21 History 200 mg-200 mg-20 mg/5 mL oral susp gabapentin 300 mg capsule 300 mg PO BID@08,20 06/19/21 10/16/21 History insulin glargine 100 unit/mL (3 25 unit SUBCUT BID 06/19/21 10/16/21 History mL) subcutaneous pen (Lantus Solostar U-100 Insulin) ipratropium 0.5 mg-albuterol 3 mg 3 ml INHALATION Q6H PRN 06/19/21 10/16/21 History (2.5 mg base)/3 mL nebulization soln tamsulosin 0.4 mg capsule 0.4 mg PO DAILY@0900 06/19/21 10/16/21 History clonazepam 1 mg tablet 0.5 mg PO BEDTIME PRN 08/07/21 10/16/21 History insulin aspart U-100 100 unit/mL See Rx Instructions .ROUTE .COMPLEX 08/07/21 10/16/21 History (3 mL) subcutaneous pen (Novolog Flexpen U-100 Insulin aspart) levothyroxine 50 mcg tablet 50 mcg PO QPM 08/07/21 10/16/21 History metformin 500 mg tablet 500 mg PO QAM 08/07/21 10/16/21 History sertraline 100 mg tablet 100 mg PO QAM 08/07/21 10/16/21 History Lactobacillus acidophilus 5,000 mmu cells PO BID 09/10/21 10/16/21 History (Acidophilus) trazodone 150 mg tablet 150 mg PO BEDTIME 09/10/21 10/16/21 History Allergies/Adverse Reactions Allergy/AdvReac Type Severity Reaction Status Date / Time No Known Allergies Allergy Verified 10/16/21 10:33 Current Medications: Generic Name Dose Route Start Last Admin Trade Name Freq PRN Reason Stop Dose Admin Sodium Chloride 1,000 mls @ 30 mls/hr 10/18/21 07:30 10/18/21 08:06 Sodium Chloride 0.9% IV 10/19/21 07:29 30 mls/hr .Q24H ARMANDO Administration Pertinent History/Comorbid Conditions* Medical History (Updated 10/05/21 @ 14:32 by Juan Howard DO) Brain aneurysm COPD (chronic obstructive pulmonary disease) Diabetes Necrotizing fasciitis of shoulder region Surgical History (Updated 09/26/21 @ 10:08 by Wesley Gordon MD) History of shoulder surgery Social History Smoking and tobacco status: current every day smoker (2/day) cigarettes Packs smoked per day: 2 Years cigarettes smoked: 50 [ Other cigarette details: started at age 16] Alcohol intake: never Pertinent Exam Findings alert, oriented x 3 and regular rate & rhythm Recommendations Surgery/Procedure today Coding Level of Care Code Acute Copier And Printer Field Technician for Josh Gallego
[2021-10-18 09:20] VITALS: BP 93/51; PULSE 50; RESP 16; TEMP 36.1; O2SAT 95
[2021-10-18 09:35] VITALS: BP 112/73; PULSE 86; RESP 18; O2SAT 97
--- NOTE | 2021-10-18 09:35 | ANE.PACU2 ---
Inpatient post-anesthesia follow up: Airway intact: Yes Vital signs: Temperature 97 F Pulse Rate 50 Respiratory Rate 16 Blood Pressure 93/51 Pulse Oximetry 95 Oxygen Delivery Me thod Nasal Cannula Oxygen Flow Rate 3 Fraction of Inspir ed Oxygen Hydration adequate: Yes Nausea and vomiting: No Pain level: 1 Mental status: Baseline
[2021-10-18 09:41] VITALS: BP 116/65; PULSE 87; RESP 6; O2SAT 97
== END 2021-10-18 10:09 | disposition home or self-care (01) ==
PROVIDERS: PCP Family Medicine; Visit Provider Surgery
PROC: 0DJ08ZZ Inspection of Upper Intestinal Tract, Via Natural or Artificial Opening Endoscopic (ICD-10-PCS; CPT 43235; principal; 2021-10-18 08:30)
PROC: 0DJD8ZZ Inspection of Lower Intestinal Tract, Via Natural or Artificial Opening Endoscopic (ICD-10-PCS; CPT 45378; 2021-10-18 08:30)
DX: Z12.11 Encounter for screening for malignant neoplasm of colon (principal); K21.9 Gastro-esophageal reflux disease without esophagitis; D12.5 Benign neoplasm of sigmoid colon; K29.70 Gastritis, unspecified, without bleeding; J44.9 Chronic obstructive pulmonary disease, unspecified; I48.91 Unspecified atrial fibrillation; I11.0 Hypertensive heart disease with heart failure; I50.9 Heart failure, unspecified; E11.9 Type 2 diabetes mellitus without complications; E78.5 Hyperlipidemia, unspecified; E66.01 Morbid (severe) obesity due to excess calories; Z68.39 Body mass index [BMI] 39.0-39.9, adult; F41.9 Anxiety disorder, unspecified; F32.9 Major depressive disorder, single episode, unspecified; Z79.4 Long term (current) use of insulin; Z79.84 Long term (current) use of oral hypoglycemic drugs; F17.210 Nicotine dependence, cigarettes, uncomplicated
CPT/HCPCS: 43235; 45385; 88305; J2704; J7030

== ENCOUNTER → 2021-10-31 10:25 | Outpatient (BNVA) | payer MEDICARE, SELFPAY | PROVIDERS: PCP Family Medicine; Visit Provider Surgery | DX: Z09 Encounter for follow-up examination after completed treatment for conditions other than malignant neoplasm (principal) | CPT/HCPCS: 99212 ==

== ENCOUNTER 2021-11-01 14:04 | Outpatient (CLI) | payer MEDICARE, SELFPAY ==
--- NOTE | 2021-11-01 14:15 | PFTS_ITS ---
Date of Study:11/01/21 Date of Dictation: 11/03/2021 MECHANICS: Postbronchodilator forced vital capacity (FVC) is reduced. Postbronchodilator forced expiratory volume in one second (FEV1) is moderately reduced 71 %. FEV1/FVC is normal. There is no significant response to bronchodilators. FLOW VOLUME LOOP: Normal . LUNG VOLUMES: Total lung capacity (TLC) is reduced. Residual volume (RV) is reduced. DIFFUSING CAPACITY FOR CARBON MONOXIDE: Moderately reduced . INTERPRETATION: The spirometry consistent with moderate restriction. No significant response to bronchodilators. Lung volumes suggestive of mild restriction. There is moderate gas transfer defect. Clinical correlation recommended. MTDD
== END 2021-11-01 14:05 | disposition home or self-care (01) ==
LOC: RT 14:08
PROVIDERS: PCP Family Medicine; Visit Provider Internal Medicine Critical Care Medicine
DX: R06.02 Shortness of breath (principal); F17.210 Nicotine dependence, cigarettes, uncomplicated
CPT/HCPCS: 94060; 94726; 94729; J7611

== ENCOUNTER → 2021-11-07 11:31 | Outpatient (BNVA) | payer MEDICARE, SELFPAY | PROVIDERS: PCP Family Medicine; Visit Provider Internal Medicine Cardiovascular Disease | DX: I11.0 Hypertensive heart disease with heart failure (principal); I50.33 Acute on chronic diastolic (congestive) heart failure; J96.11 Chronic respiratory failure with hypoxia; D50.9 Iron deficiency anemia, unspecified; E11.8 Type 2 diabetes mellitus with unspecified complications; Z79.84 Long term (current) use of oral hypoglycemic drugs; Z79.4 Long term (current) use of insulin; F17.210 Nicotine dependence, cigarettes, uncomplicated; Z79.01 Long term (current) use of anticoagulants; I48.20 Chronic atrial fibrillation, unspecified | CPT/HCPCS: 80048; 83880; 85025; 99214 ==

== ENCOUNTER → 2022-01-05 09:33 | Outpatient (BNVA) | payer MEDICARE, SELFPAY | PROVIDERS: PCP Family Medicine; Visit Provider Internal Medicine Critical Care Medicine | DX: J96.11 Chronic respiratory failure with hypoxia (principal); I50.30 Unspecified diastolic (congestive) heart failure; J41.0 Simple chronic bronchitis; F17.210 Nicotine dependence, cigarettes, uncomplicated; E66.01 Morbid (severe) obesity due to excess calories; Z68.39 Body mass index [BMI] 39.0-39.9, adult; Z99.81 Dependence on supplemental oxygen | CPT/HCPCS: 99214 ==

== ENCOUNTER 2022-02-15 22:43 | Observation (INO) | payer MEDICARE, SELFPAY ==
[2022-02-15 22:51] VITALS: BP 183/74; PULSE 86; RESP 18; TEMP 37.1; O2SAT 89; BMI 39.5
--- NOTE | 2022-02-15 22:54 | ED_ITS ---
HPI - Altered Mental Status General: Chief Complaint: Altered Mental Status Stated Complaint: AMS Time Seen by Provider: 02/15/22 22:53 Limitations: altered mental status History of Present Illness: Mr. Thomas is a 66-year-old gentleman with complex past medical history including hypertension, hyperlipidemia, diabetes with history of noncompliance, atrial fibrillation, chronic respiratory failure with hypoxia, heart failure who presents to the emergency department for altered mental status. Patient was last known well via telephone at approximately 7 PM and shortly before 911 was activated called family again and appeared confused and breathing heavily. Patient himself is a very limited historian at this time it does appear to have altered mental status. Does endorse some abdominal symptoms recently but otherwise history is limited by mental status. Review of Systems General: Reports: ROS unobtainable due to mental status PFSH ED PFSH: Medical History Brain aneurysm Diabetes Iron deficiency anemia Necrotizing fasciitis of shoulder region Surgical History H/O esophagogastroduodenoscopy (10/18/21) History of shoulder surgery Status post colonoscopy (10/18/21) Family History Grandfather Clotting disorder Family/Other CAD (coronary artery disease) Cancer Diabetes Stroke Grandmother CAD (coronary artery disease) Dementia Father Cancer Lung disease Mother Cancer Denies family history of Chronic kidney disease (CKD) Suicide Anesthesia complication Bleeding disorder Social History Smoking and tobacco status: current every day smoker cigarettes Packs smoked per day: 2 Years cigarettes smoked: 50 [ Other cigarette details: started at age 16] Alcohol intake: never Physical Exam Const: COMMON NORMALS: alert GENERAL APPEARANCE: well developed and ill appearing HENMT: COMMON NORMALS: normocephalic and atraumatic HEAD & SCALP: normocephalic and atraumatic THROAT: posterior oropharynx normal Eye: COMMON NORMALS: conjunctivae normal CONJUNCTIVA: Yes conjunctivae normal SCLERA: sclerae normal Neck/C-Spine: COMMON NORMALS: supple GENERAL: Yes trachea midline Resp: COMMON NORMALS: clear to auscultation bilaterally EFFORT & INSPECTION: Yes able to speak in complete sentences AUSCULTATION: clear to auscultation bilaterally Cardio: COMMON NORMALS: regular rate and regular rhythm RATE: regular rate RHYTHM: regular rhythm GI: COMMON NORMALS: Soft to palpation PALPATION: Yes Soft to palpation and Yes Tenderness to palpation present (GI) PERCUSSION: normal to percussion Extremity: GENERAL: Yes normal exam except as noted and No edema Neuro: COMMON NORMALS: moves all extremities, no focal motor deficits and no sensory deficits noted; negative for CN's II-XII intact bilaterally (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 Patient outside tPA window. Exam noted for altered mental status and possibly baseline neurologic findings. EKG shows first-degree AV block sinus rhythm, no STEMI. Labs with normocytic anemia, no leukocytosis. ABG compensated. Metabolic end without clear etiology of patient's symptoms. Imaging negative for acute etiology patient symptoms. Somewhat improved on reexamination however given absence of etiology admitted for further management. Medical Records I reviewed the patient's medical records. Lab Data I reviewed the patient's lab results. : 02/19/22 08:33 02/19/22 08:33 Radiology Impressions Chest X-Ray 02/15/22 23:00 IMPRESSION: 1. Left lower lobe atelectasis versus minimal infiltrate. 2. Cardiomegaly. Head CT 02/15/22 23:00 IMPRESSION: No acute intracranial abnormality. Chest/Abdomen/Pelvis CT 02/16/22 00:35 IMPRESSION: 1. Negative for pulmonary embolus. 2. Cardiomegaly. 3. Coronary artery atherosclerotic calcifications. 4. Scattered prominent mediastinal lymph nodes measuring 10 mm, nonspecific. 5. Bibasilar left greater than right atelectasis versus infiltrate. IMPRESSION: 1. Negative for acute inflammatory process in the abdomen or pelvis. 2. Small to moderate umbilical hernia without bowel or inflammation. 3. Minimal edema about the pancreatic head may reflect a mild pancreatitis in the appropriate clinical setting Head/Neck CTA 02/16/22 00:35 IMPRESSION: There is no evidence for aneurysmal dilatation, occlusion or significant stenoses of the visualized intracranial arteries. IMPRESSION: No significant stenosis or occlusion. REFERENCES: NASCET CRITERIA. The degree of stenosis in the cervical segment of the internal carotid artery is based on NASCET criteria. Normal is no stenosis. Mild is less than 50% stenosis. Moderate is 50-69% stenosis. Severe is 70% to 99% stenosis. Total occlusion is no detectable patent lumen. Laboratory Results WBC 8.6 10^3/uL (4.0-10.0) 02/15/22 23:10 RBC 2.77 10^6/uL (4.1-5.3) L 02/15/22 23:10 Hgb 7.0 g/dL (11.7-16.6) L 02/15/22 23:10 Hct 23.8 % (42.0-52.0) L 02/15/22 23:10 MCV 85.9 fl (80-94) 02/15/22 23:10 MCH 25.3 pg (28.0-34.0) L 02/15/22 23:10 MCHC 29.4 g/dL (30.0-36.0) L 02/15/22 23:10 RDW 14.2 % (12.1-15.1) 02/15/22 23:10 Plt Count 196 10^3/cmm (130-400) 02/15/22 23:10 MPV 10.3 fL (7.4-10.4) 02/15/22 23:10 Neut % (Auto) 61.1 % 02/15/22 23:10 Lymph % (Auto) 26.3 % 02/15/22 23:10 [place] % (Auto) 9.6 % 02/15/22 23:10 Eos % (Auto) 1.6 % 02/15/22 23:10 Baso % (Auto) 0.5 % 02/15/22 23:10 Neut # (Auto) 5.27 10^3/uL (1.8-7.7) 02/15/22 23:10 Lymph # (Auto) 2.3 10^3/uL (0.8-4.8) 02/15/22 23:10 [place] # (Auto) 0.8 10^3/uL (0.2-0.9) 02/15/22 23:10 Eos # (Auto) 0.1 10^3/uL (0.0-0.8) 02/15/22 23:10 Baso # (Auto) 0.0 10^3/uL (0.0-0.1) 02/15/22 23:10 Nucleated RBC % (auto) 0 % 02/15/22 23:10 Nucleated RBCs # 0.0 /100WBC 02/15/22 23:10 Specimen Type Arterial 02/15/22 23:12 Sample Site Radial, left 02/15/22 23:12 ABG pH 7.38 (7.35-7.45) 02/15/22 23:12 ABG pCO2 56.3 mmHg (35-45) H 02/15/22 23:12 ABG pO2 61.0 mmHg (80.0-100.0) L 02/15/22 23:12 ABG HCO3 33.5 mmol/L (22-26) H 02/15/22 23:12 ABG Base Excess 7.6 mmol/L (-2.0-2.0) H 02/15/22 23:12 Matthew Test Pos 02/15/22 23:12 Hematocrit 20.6 % (42-52) L 02/15/22 23:12 O2 Delivery Device Nc 02/15/22 23:12 O2 Liters/Min 4.0 % 02/15/22 23:12 Blood Donor Recruiter Supervisor ID Rick 02/15/22 23:12 Sodium 134 mmol/L (136-145) L 02/15/22 23:10 Potassium 3.9 mmol/L (3.5-5.1) 02/15/22 23:10 Chloride 95 mmol/L (98-107) L 02/15/22 23:10 Carbon Dioxide 30 mmol/L (22-29) H 02/15/22 23:10 Anion Gap 12.9 (5-19) 02/15/22 23:10 BUN 14 mg/dL (8-23) 02/15/22 23:10 Creatinine 1.1 mg/dL (0.7-1.2) 02/15/22 23:10 GFR Calculation 67.0 mL/min (90-130) L 02/15/22 23:10 Glucose 194 mg/dL (65-115) H 02/15/22 23:10 POC Glucose 136 mg/dL (70-110) H 02/16/22 06:40 Calculated Osmolality 284 mOsm/kg (285-295) L 02/15/22 23:10 Calcium 8.7 mg/dL (8.5-10.5) 02/15/22 23:10 Iron 23 ug/dL (59-158) L 02/16/22 05:45 TIBC 427 mcg/dl 02/16/22 05:45 % Saturation 5.3 % (20-50) L 02/16/22 05:45 Unsat Iron Binding 404 ug/dL (112-347) H 02/16/22 05:45 Total Bilirubin 0.2 mg/dL (0.15-1.2) 02/15/22 23:10 AST 27 U/L (0-40) 02/15/22 23:10 ALT 20 U/L (0-41) 02/15/22 23:10 Alkaline Phosphatase 164 U/L (40-130) H 02/15/22 23:10 Troponin T Baseline 31 ng/L (0-15) H 02/15/22 23:10 Troponin T 120 Minute 31.96 ng/L (0-15) H 02/16/22 01:56 Delta Troponin T 0.96 ABS# (0-10) 02/16/22 01:56 Troponin T Hi Sens 6Hr 35.93 ng/L (0-15) H 02/16/22 05:10 Troponin T Hi Sens 6Hr Delta 4.93 ng/L (0-12) 02/16/22 05:10 C-Reactive Protein 7.6 mg/L (0.0-4.9) H 02/16/22 05:10 NT-Pro-B Natriuret Pep 365 pg/mL (0-125) H 02/16/22 05:10 Total Protein 7.0 g/dL (6.6-8.7) 02/15/22 23:10 Albumin 3.3 g/dL (3.5-5.2) L 02/15/22 23:10 Globulin 3.7 g/dL (1.3-4.6) 02/15/22 23:10 Lipase 28 U/L (13-60) 02/16/22 01:56 Procalcitonin 0.05 ng/mL (0-0.5) 02/16/22 05:10 TSH 0.38 uIU/mL (0.27-4.20) 02/16/22 05:10 Urine Color Yellow (Yellow) 02/16/22 00:50 Urine Appearance Clear (CLEAR) 02/16/22 00:50 Urine pH 5 (5-7) 02/16/22 00:50 Ur Specific [place] 1.020 (1.005-1.030) 02/16/22 00:50 Urine Protein Neg (Negative) 02/16/22 00:50 Urine Glucose (UA) Norm (Normal) 02/16/22 00:50 Urine Ketones Negative (Negative) 02/16/22 00:50 Urine Blood 2+ (Negative) H 02/16/22 00:50 Urine Nitrate Negative (Negative) 02/16/22 00:50 Urine Bilirubin Neg (Negative) 02/16/22 00:50 Urine Urobilinogen Norm mg/dL (Negative) 02/16/22 00:50 Ur Leukocyte Esterase Negative (Negative) 02/16/22 00:50 Urine RBC 5-10 /hpf (0-2) H 02/16/22 00:50 Urine WBC 0-4 /hpf (0-5) H 02/16/22 00:50 Ur Squamous Epith Cells 0-4 /hpf (0-5) H 02/16/22 00:50 Amorphous Sediment 1+ /hpf 02/16/22 00:50 Urine Bacteria None /hpf (NONE) 02/16/22 00:50 Hyaline Casts 0-4 /lpf H 02/16/22 00:50 Urine Mucus 2+ /hpf 02/16/22 00:50 Salicylates 1.7 mg/dL (3-10) L 02/15/22 23:10 Urine Opiates Screen Negative ng/mL (Negative) 02/16/22 00:50 Acetaminophen < 5.0 ug/mL (10-30) L 02/15/22 23:10 Ur Barbiturates Screen Negative ng/mL (Negative) 02/16/22 00:50 Ur Phencyclidine Scrn Negative ng/mL (Negative) 02/16/22 00:50 Ur Amphetamines Screen Negative ng/mL (Negative) 02/16/22 00:50 U Benzodiazepines Scrn Negative ng/mL (Negative) 02/16/22 00:50 Urine Cocaine Screen Negative ng/mL (Negative) 02/16/22 00:50 U Marijuana (THC) Screen Positive ng/mL (Negative) H 02/16/22 00:50 Ethyl Alcohol < 10 mg/dL (0-10) 02/15/22 23:10 Coronavirus 229E (PCR) Not detected (NOT DETECT) 02/15/22 23:18 SARS-CoV-2 (PCR) Not detected (NOT DETECT) 02/15/22 23:18 Blood Type O Negative 02/16/22 05:45 Rho(D) Type Negative 02/16/22 05:45 Antibody Screen Negative 02/16/22 05:45 Crossmatch See Detail 02/16/22 05:45 Discharge Plan Discharge Patient Disposition: Placed in Observation Admit Provider: Kiran Quinones Clinical Impression: Altered mental status Discharge Diet: Cardiac and Diabetic Discharge Activity: Resume usual activity Coding Level of Care Code ED Miller Helper for Josh Gallego
--- NOTE | 2022-02-15 23:00 | CTR_ITS ---
PROCEDURE INFORMATION: Exam: CT Head Without Contrast Exam date and time: 02/15/2022 11:31 PM Age: 66 years old Clinical indication: Other: General weakness. Patient HX: General weakness and lethargy. History of bells palsy and cerebral aneurysm. ; Additional info: AMS, facial droop TECHNIQUE: Imaging protocol: Computed tomography of the head without contrast. Radiation optimization: All CT scans at this facility use at least one of these dose optimization techniques: automated exposure control; mA and/or kV adjustment per patient size (includes targeted exams where dose is matched to clinical indication); or iterative reconstruction. COMPARISON: CT head wo con* [id number] 06/19/2021 12:12 PM RADIATION DOSE METRICS: Total DLP (mGy-cm): 1629.18 FINDINGS: Brain: Normal. No hemorrhage. Unremarkable white matter. No mass effect. Cerebral ventricles: No ventriculomegaly. Paranasal sinuses: Visualized sinuses are unremarkable. No fluid levels. Mastoid air cells: Visualized mastoid air cells are well aerated. Bones/joints: Left frontal temporal craniotomy changes. Soft tissues: Unremarkable. CT/CT head wo con* [id number] IMPRESSION: No acute intracranial abnormality.
--- NOTE | 2022-02-15 23:00 | XRR_ITS ---
PROCEDURE INFORMATION: Exam: XR Chest Exam date and time: 02/15/2022 11:39 PM Age: 66 years old Clinical indication: Shortness of breath; Patient HX: SOB with general weakness. History of copd. ; Additional info: SOB, AMS TECHNIQUE: Imaging protocol: Radiologic exam of the chest. Views: 1 view. COMPARISON: CR (CHEST, ) 09/10/2021 10:48 AM FINDINGS: Lungs: Left lower lobe atelectasis versus minimal infiltrate. Pleural spaces: Unremarkable. No pleural effusion. No pneumothorax. Heart/Mediastinum: Cardiomegaly. Bones/joints: Unremarkable. XR/XR chest 1V portable [id number] IMPRESSION: 1. Left lower lobe atelectasis versus minimal infiltrate. 2. Cardiomegaly.
--- NOTE | 2022-02-15 23:01 | ECG_ITS ---
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 Measurements Intervals [place] Rate: 87 P: 42 [place]: 178 QRS: 12 QRSD: 106 T: 71 QT: 374 QTc: 451 Interpretive Statements SINUS RHYTHM NONSPECIFIC ST & T-WAVE ABNORMALITY Compared to ECG 10/05/2021 14:17:58 T-wave abnormality now present Atrial fibrillation no longer present Myocardial infarct finding no longer present Electronically Signed On 02-16-2022 13:43:35 CDT by Melania Massey M.D. [id number]
[2022-02-15] MEDS: lactated ringers 1,000 ML 999 ML IV (23:14)
[2022-02-15 23:24] LABS: ABG PCO2 56.3 mmHg (35-45); ABG PH Result 7.38 (7.35-7.45); Arterial Blood Gas Hematocrit 20.6 % (42-52); Base Excess ABG 7.6 mmol/L (-2.0-2.0); Blood Gas Allen Test Pos; Blood Gas Operator Identificat WALCI; Blood Gas Sample Site Radial, left; Blood Gas Sample Type Arterial; HCO3 ABG 33.5 mmol/L (22-26); Oxygen Device NC
[2022-02-15 23:37] LABS: Basophils % 0.5 %; Eosinophils # 0.1 10^3/uL (0.0-0.8); Eosinophils % 1.6 %; Hematocrit 23.8 % (42.0-52.0); Lymphocytes # 2.3 10^3/uL (0.8-4.8); Lymphocytes % 26.3 %; Mean Corpuscular HGB Conc 29.4 g/dL (30.0-36.0); Mean Corpuscular Hemoglobin 25.3 pg (28.0-34.0); Mean Corpuscular Volume 85.9 fl (80-94); Mean Platelet Volume 10.3 fL (7.4-10.4); Monocytes # 0.8 10^3/uL (0.2-0.9); Monocytes % 9.6 %; Neutrophils # 5.27 10^3/uL (1.8-7.7); Neutrophils % 61.1 %; Nucleated Red Blood Cells % 0 %; Platelet Count 196 10^3/cmm (130-400); Red Blood Count 2.77 10^6/uL (4.1-5.3); Red Cell Distribution Width 14.2 % (12.1-15.1); White Blood Count 8.6 10^3/uL (4.0-10.0)
[2022-02-15 23:46] VITALS: BP 164/71; PULSE 80; RESP 20; O2SAT 97
[2022-02-16] VITALS (15 sets, daily range): BP systolic 137–214; BP diastolic 72–98; PULSE 65–91; RESP 16–22; TEMP 36.5–36.8; O2SAT 95–99; BMI 39.5
[2022-02-16 00:01] LABS: Troponin(5th) Baseline 31 ng/L (0-15)
[2022-02-16 00:08] LABS: NT Pro B Type Natriuretic Pept 355 pg/mL (0-125); Procalcitonin 0.05 ng/mL (0-0.5); Thyroid Stimulating Hormone 0.53 uIU/mL (0.27-4.20)
[2022-02-16 00:20] LABS: Alanine Aminotransferase 20 U/L (0-41); Albumin Level 3.3 g/dL (3.5-5.2); Alkaline Phosphatase 164 U/L (40-130); Aspartate Amino Transferase 27 U/L (0-40); Blood Urea Nitrogen 14 mg/dL (8-23); C Reactive Protein 7.4 mg/L (0.0-4.9); Calcium 8.7 mg/dL (8.5-10.5); Carbon Dioxide 30 mmol/L (22-29); Chloride 95 mmol/L (98-107); Globulin 3.7 g/dL (1.3-4.6); Glucose 194 mg/dL (65-115); Osmolality Calculated 284 mOsm/kg (285-295); Salicylate 1.7 mg/dL (3-10); Sodium 134 mmol/L (136-145); Total Bilirubin 0.2 mg/dL (0.15-1.2)
[2022-02-16 00:32] LABS: Acetaminophen < 5.0 ug/mL (10-30); Alcohol Level < 10 mg/dL (0-10)
[2022-02-16 00:33] LABS: Anion Gap 12.9 (5-19); Potassium 3.9 mmol/L (3.5-5.1)
--- NOTE | 2022-02-16 00:35 | CTR_ITS ---
PROCEDURE INFORMATION: Exam: CTA Head With Contrast, Arteriography Exam date and time: 02/16/2022 1:05 AM Age: 66 years old Clinical indication: Patient HX: General weakness and lethargy. History of intracranial aneurysm. ; Additional info: AMS, HX aneurysm TECHNIQUE: Imaging protocol: Computed tomographic angiography of the head with contrast. Exam focused on the arteries. 3D rendering (Not supervised by radiologist): MIP and/or 3D reconstructed images were created by the technologist. Radiation optimization: All CT scans at this facility use at least one of these dose optimization techniques: automated exposure control; mA and/or kV adjustment per patient size (includes targeted exams where dose is matched to clinical indication); or iterative reconstruction. Contrast material: OMNI 350; Contrast volume: 150 ml; Contrast route: INTRAVENOUS (IV); COMPARISON: CT head wo con* [id number] 02/15/2022 11:31 PM RADIATION DOSE METRICS: Total DLP (mGy-cm): 1139.06 FINDINGS: ANTERIOR CIRCULATION: Right internal carotid artery: Diffuse calcifications are seen within the cavernous segments of the right internal carotid artery. Right middle cerebral artery: No occlusion or significant stenosis. No aneurysm. Right anterior cerebral artery: No occlusion or significant stenosis. No aneurysm. Left internal carotid artery: An aneurysmal clip is seen in the region of the clinoid segment the left internal carotid artery. Diffuse calcifications are seen within the cavernous segment of the left internal carotid artery. Left middle cerebral artery: No occlusion or significant stenosis. No aneurysm. Left anterior cerebral artery: No occlusion or significant stenosis. No aneurysm. POSTERIOR CIRCULATION: Right vertebral artery: No occlusion or significant stenosis. No aneurysm. Left vertebral artery: No occlusion or significant stenosis. No aneurysm. Basilar artery: No occlusion or significant stenosis. No aneurysm. Right posterior cerebral artery: No occlusion or significant stenosis. No aneurysm. Left posterior cerebral artery: No occlusion or significant stenosis. No aneurysm. Brain: No definite mass, mass effect, or midline shift. Cerebral ventricles: No ventriculomegaly. Bones/joints: Status post left frontotemporal craniotomy. Soft tissues: Unremarkable. PROCEDURE INFORMATION: Exam: CTA Neck With Contrast Exam date and time: 02/16/2022 1:05 AM Age: 66 years old Clinical indication: Patient HX: General weakness and lethargy. History of intracranial aneurysm. ; Additional info: AMS, HX aneurysm TECHNIQUE: Imaging protocol: Computed tomographic angiography of the neck with contrast. 3D rendering (Not supervised by radiologist): MIP and/or 3D reconstructed images were created by the technologist. Radiation optimization: All CT scans at this facility use at least one of these dose optimization techniques: automated exposure control; mA and/or kV adjustment per patient size (includes targeted exams where dose is matched to clinical indication); or iterative reconstruction. Contrast material: OMNI 350; Contrast volume: 150 ml; Contrast route: INTRAVENOUS (IV); COMPARISON: CT cervical spin wo con* [id number] 06/09/2021 6:17 AM RADIATION DOSE METRICS: Total DLP (mGy-cm): 1139.06 FINDINGS: Right common carotid artery: No stenosis. No dissection or occlusion. Right internal carotid artery: Mild calcifications are seen within the carotid bulb. No stenosis of the extracranial segment. No dissection or occlusion. Right external carotid artery: No occlusion or stenosis of the origin. Left common carotid artery: No stenosis. No dissection or occlusion. Left internal carotid artery: Mild calcifications are seen within the carotid bulb. No stenosis of the extracranial segment. No dissection or occlusion. Left external carotid artery: No occlusion or stenosis of the origin. Right vertebral artery: No stenosis. No dissection or occlusion. Left vertebral artery: No stenosis. No dissection or occlusion. Soft tissues: Normal. No significant soft tissue swelling. Bones/joints: No acute fracture. CT/CT angio headneck* [id number] IMPRESSION: There is no evidence for aneurysmal dilatation, occlusion or significant stenoses of the visualized intracranial arteries. IMPRESSION: No significant stenosis or occlusion. REFERENCES: NASCET CRITERIA. The degree of stenosis in the cervical segment of the internal carotid artery is based on NASCET criteria. Normal is no stenosis. Mild is less than 50% stenosis. Moderate is 50-69% stenosis. Severe is 70% to 99% stenosis. Total occlusion is no detectable patent lumen.
--- NOTE | 2022-02-16 00:35 | CTR_ITS ---
PROCEDURE INFORMATION: Exam: CT Chest With Contrast; Diagnostic Exam date and time: 02/16/2022 1:16 AM Age: 66 years old Clinical indication: Other: N/a; Abdominal pain; Generalized; Shortness of breath; Patient HX: SOB with abd pain. ; Additional info: AMS, abd pain TECHNIQUE: Imaging protocol: Diagnostic computed tomography of the chest with contrast. Radiation optimization: All CT scans at this facility use at least one of these dose optimization techniques: automated exposure control; mA and/or kV adjustment per patient size (includes targeted exams where dose is matched to clinical indication); or iterative reconstruction. Contrast material: OMNI 350; Contrast volume: 65 ml; Contrast route: INTRAVENOUS (IV); COMPARISON: CT angio chest PE protcl [id number] 09/10/2021 12:20 PM RADIATION DOSE METRICS: Total DLP (mGy-cm): 1895.58 FINDINGS: Lungs: Bibasilar left greater than right atelectasis versus infiltrate. Pleural spaces: Unremarkable. No pneumothorax. No pleural effusion. Heart: Cardiomegaly. Coronary artery atherosclerotic calcifications. Lymph nodes: Scattered prominent mediastinal lymph nodes measuring 10 mm, nonspecific. Vasculature: Unremarkable. No aortic aneurysm. Bones/joints: Unremarkable. No acute fracture. Soft tissues: Unremarkable. PROCEDURE INFORMATION: Exam: CT Abdomen And Pelvis With Contrast Exam date and time: 02/16/2022 1:16 AM Age: 66 years old Clinical indication: Other: N/a; Abdominal pain; Generalized; Shortness of breath; Patient HX: SOB with abd pain. ; Additional info: AMS, abd pain TECHNIQUE: Imaging protocol: Computed tomography of the abdomen and pelvis with contrast. Radiation optimization: All CT scans at this facility use at least one of these dose optimization techniques: automated exposure control; mA and/or kV adjustment per patient size (includes targeted exams where dose is matched to clinical indication); or iterative reconstruction. Contrast material: OMNI 350; Contrast volume: 65 ml; Contrast route: INTRAVENOUS (IV); COMPARISON: CT angio chest PE protcl [id number] 09/10/2021 12:20 PM RADIATION DOSE METRICS: Total DLP (mGy-cm): 1895.58 FINDINGS: Liver: Normal. No mass. Gallbladder and bile ducts: Normal. No calcified stones. No ductal dilation. Pancreas: Minimal edema about the pancreatic head may reflect a mild pancreatitis in the appropriate clinical setting Spleen: Normal. No splenomegaly. Adrenal glands: Normal. No mass. Kidneys and ureters: Normal. No hydronephrosis. Stomach and bowel: Unremarkable. No obstruction. No mucosal thickening. Appendix: No evidence of appendicitis. Intraperitoneal space: Unremarkable. No free air. No significant fluid collection. Vasculature: Unremarkable. No abdominal aortic aneurysm. Lymph nodes: Unremarkable. No enlarged lymph nodes. Urinary bladder: Unremarkable as visualized. Reproductive: Unremarkable as visualized. Bones/joints: Unremarkable. No acute fracture. Soft tissues: Small to moderate umbilical hernia without bowel or inflammation. CT/CT chest abd pel w con* IMPRESSION: 1. Negative for pulmonary embolus. 2. Cardiomegaly. 3. Coronary artery atherosclerotic calcifications. 4. Scattered prominent mediastinal lymph nodes measuring 10 mm, nonspecific. 5. Bibasilar left greater than right atelectasis versus infiltrate. IMPRESSION: 1. Negative for acute inflammatory process in the abdomen or pelvis. 2. Small to moderate umbilical hernia without bowel or inflammation. 3. Minimal edema about the pancreatic head may reflect a mild pancreatitis in the appropriate clinical setting
--- NOTE | 2022-02-16 01:01 | ECG_ITS ---
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 Measurements Intervals [place] Rate: 86 P: 53 DC: 211 QRS: 16 QRSD: 109 T: 65 QT: 363 QTc: 436 Interpretive Statements SINUS RHYTHM WITH FIRST DEGREE AV BLOCK Compared to ECG 02/15/2022 23:17:39 First degree AV block now present T-wave abnormality no longer present Electronically Signed On 02-17-2022 8:44:55 CDT by Melania Massey M.D. [id number]
[2022-02-16 01:10] LABS: Adenovirus Not Detected (NOT DETECT); Chlamydia Pneumoniae Not Detected (NOT DETECT); Coronavirus 229E,HKU1,NL63,OC4 Not Detected (NOT DETECT); Human Metapneumovirus Not Detected (NOT DETECT); Human Rhinovirus/Enterovirus Not Detected (NOT DETECT); Influenza A Not Detected (NOT DETECT); Influenza A H1 Not Detected (NOT DETECT); Influenza A H1-2009 Not Detected (NOT DETECT); Influenza A H3 Not Detected (NOT DETECT); Influenza B Not Detected (NOT DETECT); Mycoplasma Pneumoniae Not Detected (NOT DETECT); Parainfluenza Virus Type 1 Not Detected (NOT DETECT); Parainfluenza Virus Type 2 Not Detected (NOT DETECT); Parainfluenza Virus Type 3 Not Detected (NOT DETECT); Parainfluenza Virus Type 4 Not Detected (NOT DETECT); Respiratory Syncytial Virus A Not Detected (NOT DETECT); Respiratory Syncytial Virus B Not Detected (NOT DETECT); SARS-COV-2 Not Detected (NOT DETECT)
[2022-02-16 01:10] LABS: Amphetamines Screen Urine Negative (Negative); Barbiturates Screen Urine Negative (Negative); Benzodiazepines Screen Urine Negative (Negative); Cocaine Screen Urine Negative (Negative); Opiate Screen Urine Negative (Negative); PCP Screen Urine Negative (Negative); THC Screen Urine Positive (Negative)
[2022-02-16 01:20] LABS: Urine Appearance Clear (CLEAR); Urine Color Yellow (Yellow); pH Urine 5 (5-7)
[2022-02-16 01:21] LABS: Add Urine Culture? No; Add Urine Microscopic? YES; Amorphous Sediment Urine 1+ /hpf; Bilirubin Urine Neg (Negative); Blood Urine 2+ (Negative); Glucose Urine UA Norm (Normal); Hyaline Casts Urine 0-4 /lpf; Ketones Urine Negative (Negative); Leukocyte Esterase Urine Negative (Negative); Mucus Urine 2+ /hpf; Nitrate Urine Negative (Negative); Protein Urine Neg (Negative); Squamous Epithelial Cell Urine 0-4 /hpf (0-5); Urobilinogen Urine Norm (Negative); WBC Urine 0-4 /hpf (0-5)
[2022-02-16] MEDS: iohexol 350 mg/mL 100 mL Btl IV ×3 (02:27→02:28)
[2022-02-16 02:36] LABS: Troponin 5 2HR 31.96 ng/L (0-15)
[2022-02-16 02:37] LABS: Troponin 5 2HR Delta 0.96 ABS# (0-10)
[2022-02-16 02:55] LABS: Lipase 28 U/L (13-60)
--- NOTE | 2022-02-16 03:24 | PC.NURSE ---
Report called to Alirio Berkowitz
--- NOTE | 2022-02-16 03:30 | PM.HP ---
Providers/Chief Complaint Admitting Physician: Kiran Quinones MD Primary Care Provider: Rachel Bills MD Chief Complaint: AMS History of Present Illness Juan Thomas is a 66 year old male with a past medical history of atrial fibrillation not on anticoagulation due to GI bleed history, history of insulin-dependent type 2 diabetes mellitus, hypertension, heart failure with preserved ejection fraction, history of COPD, history of smoking, recent hospitalization for necrotizing fasciitis of the right shoulder requiring prolonged intubation mechanical ventilation, reversal of tracheostomy who presents [facility] due to increased confusion, generalized weakness, fatigue. Patient tells me that he lives at home by himself, he is able to ambulate without any difficulty, he is able to take care of himself. He tells me this evening he started to not feel well, no fevers, no chills, but was not feeling well. He then tells me that he proceeded to have generalized weakness, no focal neurologic deficits he has bilateral lower extremity peripheral neuropathy. No slurring of his words, no facial droop, but he tells me that he was so weak he had trouble lifting both his arms. He was also increasingly confused. Denies any dysuria, no hematuria, no shortness of breath, no abdominal pain, no diarrhea, no chest pain. Currently he is alert oriented x3, following all commands, no facial droop no slurring of his words, no paresthesias, no weakness what I did neurologic testing, testing of his strength he tells me that he feels a lot better but a few hours ago he was unable to move all of his extremities due to weakness. Review of Systems Const: Reports: fatigue and malaise; Denies: fever(s) Eyes: Denies: change in vision Card: Denies: chest pain Resp: Denies: dyspnea GI: Denies: abdominal pain : Denies: dysuria Musc: Denies: back pain Neuro: Reports: numbness in extremities, weakness in extremities and difficulty walking; Denies: dizziness, Slurred speech present or difficulty communicating thoughts Medications/Allergies Home Medications Medication Instructions Recorded Confirmed Last Taken Type lisinopril 5 mg tablet 5 mg PO DAILY@0800 03/23/21 01/05/22 10/17/21 History aluminum-mag hydroxide-simethicone 30 ml PO Q4H PRN Heartburn 06/19/21 01/05/22 10/17/21 History 200 mg-200 mg-20 mg/5 mL oral susp gabapentin 300 mg capsule 300 mg PO BID@08,20 06/19/21 01/05/22 10/17/21 History ipratropium 0.5 mg-albuterol 3 mg 3 ml inhalation Q6H PRN Shortness 06/19/21 01/05/22 10/17/21 History (2.5 mg base)/3 mL nebulization Of Breath soln tamsulosin 0.4 mg capsule 0.4 mg PO DAILY@0900 06/19/21 01/05/22 10/17/21 History clonazepam 1 mg tablet 0.5 mg PO BEDTIME PRN Sleep 08/07/21 01/05/22 10/17/21 History insulin aspart U-100 100 unit/mL See Rx Instructions .Route .COMPLEX 08/07/21 01/05/22 10/17/21 History (3 mL) subcutaneous pen (Novolog Flexpen U-100 Insulin aspart) levothyroxine 50 mcg tablet 50 mcg PO QPM 08/07/21 01/05/22 10/17/21 History sertraline 100 mg tablet 100 mg PO QAM 08/07/21 01/05/22 10/17/21 History Lactobacillus acidophilus 5,000 mmu cells PO BID 09/10/21 01/05/22 10/17/21 History (Acidophilus) trazodone 150 mg tablet 150 mg PO BEDTIME 09/10/21 01/05/22 10/17/21 History bumetanide 1 mg tablet 1 mg PO BID #60 tabs 09/14/21 01/05/22 10/17/21 Rx glycopyrrolate 9 mcg-formoterol 2 puff inhalation Q12H 30 days 10/09/21 01/05/22 10/17/21 Rx 4.8 mcg HFA aerosol inhaler #10.7 grams (Bevespi Aerosphere) fluticasone propionate 50 2 spray intranasal DAILY 11/07/21 01/05/22 Unknown History mcg/actuation nasal spray,suspension insulin glargine 100 unit/mL (3 25 unit SUBCUT BID 11/07/21 01/05/22 Unknown History mL) subcutaneous pen (Lantus Solostar U-100 Insulin) melatonin 3 mg tablet 6 mg PO DAILY 11/07/21 01/05/22 Unknown History metformin 500 mg tablet,extended 500 mg PO DAILY 11/07/21 01/05/22 Unknown History release 24 hr metoprolol tartrate 25 mg tablet 75 mg PO BID@0900,2100 11/07/21 01/05/22 Unknown History omeprazole 20 mg capsule,delayed 20 mg PO DAILY 11/07/21 01/05/22 Unknown History release pantoprazole 40 mg tablet,delayed 40 mg PO DAILY 11/07/21 01/05/22 Unknown History release potassium chloride 10 mEq 10 meq PO DAILY 11/07/21 01/05/22 Unknown History tablet,extended release Allergies Allergy/AdvReac Type Severity Reaction Status Date / Time No Known Allergies Allergy Verified 01/05/22 09:45 PFSH Acute PFSH: Medical History Brain aneurysm Diabetes Necrotizing fasciitis of shoulder region Surgical History H/O esophagogastroduodenoscopy (10/18/21) History of shoulder surgery Status post colonoscopy (10/18/21) Family History Grandfather Clotting disorder Family/Other CAD (coronary artery disease) Cancer Diabetes Stroke Grandmother CAD (coronary artery disease) Dementia Father Cancer Lung disease Mother Cancer Denies family history of Chronic kidney disease (CKD) Suicide Anesthesia complication Bleeding disorder Social History Smoking and tobacco status: current every day smoker (less than pack a day) cigarettes Packs smoked per day: 2 Years cigarettes smoked: 50 [ Other cigarette details: started at age 16] Alcohol intake: never Vitals/I&O/Wt Last Vital Signs Temp 98.8 F 02/15/22 22:51 Pulse 90 02/16/22 02:39 Resp 22 H 02/16/22 02:39 BP 189/82 02/16/22 02:39 Pulse Ox 95 02/16/22 02:39 O2 Del Method 02/15/22 22:51 O2 Flow Rate 3 02/15/22 22:51 02/15/22 02/15/22 02/16/22 14:59 22:59 06:59 Intake Total 1000 / 1000 Balance 1000 / 1000 Weight last 48 hrs Weight 136.078 kg Physical Exam Const: COMMON NORMALS: no acute distress and patient oriented x3 HENMT: COMMON NORMALS: normocephalic HEAD & SCALP: normocephalic Eye: COMMON NORMALS: Equal, round and reactive pupils present and EOMs intact bilaterally Neck/C-Spine: COMMON NORMALS: no JVD Resp: COMMON NORMALS: normal respiratory effort, No retractions, No use of accessory muscles and clear to auscultation bilaterally AUSCULTATION: clear to auscultation bilaterally Cardio: COMMON NORMALS: no JVD, regular rate, regular rhythm, S1 normal heart sound present and S2 normal heart sound present RATE: regular rate RHYTHM: regular rhythm HEART SOUNDS: S1 normal heart sound present and S2 normal heart sound present GI: COMMON NORMALS: Normal to inspection, nondistended, normoactive bowel sounds present, Soft to palpation, non-tender, No hepatosplenomegaly present, no masses and no bruits PALPATION: Yes Soft to palpation and Yes No hepatosplenomegaly present Extremity: COMMON NORMALS: capillary refill normal, no clubbing, cyanosis or edema, no calf tenderness and no pedal edema Neuro: COMMON NORMALS: patient oriented x3, CN's II-XII intact bilaterally, moves all extremities and no focal motor deficits Psych: COMMON NORMALS: mental status grossly normal Skin: NARRATIVE SKIN EXAM: Surgical scar, right shoulder Data : 02/15/22 23:10 02/15/22 23:10 Micro: Microbiology 02/15/22 23:59 Blood Culture - Preliminary Blood SPECIMEN COLLECTED A&P Assessment and plan (1) Altered mental status: Status: Acute (2) Heart failure with preserved ejection fraction: Status: Acute (3) Chronic respiratory failure with hypoxia: Status: Acute (4) Hypochromic microcytic anemia: Status: Acute (5) Anxiety and depression: Status: Acute (6) GERD without esophagitis: Status: Acute (7) Acquired hypothyroidism: Status: Acute (8) Atrial fibrillation: Status: Acute (9) Diabetic peripheral neuropathy associated with type 2 diabetes mellitus: Status: Acute (10) HTN (hypertension): Status: Acute Plan Altered mental status with generalized weakness -Currently alert oriented x3, weakness has resolved -Etiology unclear, -He is hypertensive, possible hypertensive encephalopathy -He also has a history of atrial fibrillation, not on anticoagulation, potentially TIA episode -Hemoglobin 7 -UA no evidence of UTI, -Urine positive for marijuana -Head CTA no acute findings -Head CT no acute findings -[place] CT does show bibasilar left greater than right atelectasis, no shortness of breath complaints, no cough, no fevers, no significant leukocytosis Plan -Neurochecks,NIH stroke scale stroke scale, aspiration precautions -Blood pressure management, hydralazine, continue home metoprolol -Serial EKGs, serial troponins, telemetry monitoring -Pro-Sylvester, CRP, although CT of the chest shows infiltrates bibasilar, potentially pneumonia could be an etiology of started on Rocephin and azithromycin -Not on anticoagulation due to atrial fibrillation, can consider MRI of the brain if mentation worsens however he is back to baseline -Type 2 diabetes mellitus, low-dose sliding scale, Lantus 10 units twice daily -History of GI bleed, with acute on chronic anemia, hemoglobin 7, tonics, Carafate, monitor hemoglobin repeat at 8 PM, no bloody or black stools reported -Full code -SCDs for DVT prophylaxis Attestations Medical Necessity Statement*: Patient requires hospitalization for altered mental status, generalized weakness, outpatient with observation Coding Level of Care Code Acute Supervisor Cell Room for g Fwd Diagnoses Altered mental status R41.82 Heart failure with preserved ejection fraction I50.30 Chronic respiratory failure with hypoxia J96.11 Hypochromic microcytic anemia D50.9 Anxiety and depression F41.9; F32.A GERD without esophagitis K21.9 Acquired hypothyroidism E03.9 Atrial fibrillation I48.91 Diabetic peripheral neuropathy associated with type 2 diabetes mellitus E11.42 HTN (hypertension) I10
[2022-02-16] MEDS: cefTRIAXone 1,000 MG in sodium chloride 0.9% (plus) 50 ML 100 MG IV (04:43)
[2022-02-16] MEDS: pantoprazole 40 mg SDV IVP ×2 (04:47→15:19)
[2022-02-16] MEDS: hyDRALAzine 10 mg Tablet PO ×3 (04:47→17:30)
[2022-02-16] MEDS: azithromycin 500 MG in sodium chloride 0.9% 250 ML 250 MG IV (05:01)
--- NOTE | 2022-02-16 05:01 | ECG_ITS ---
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 Measurements Intervals [place] Rate: 82 P: 40 [place]: 203 QRS: -9 QRSD: 107 T: 49 QT: 369 QTc: 432 Interpretive Statements SINUS RHYTHM Compared to ECG 02/16/2022 03:32:14 First degree AV block no longer present Electronically Signed On 02-17-2022 8:44:20 CDT by Melania Massey M.D. [id number]
[2022-02-16] MEDS: sertraline 100 mg Tablet PO (05:02)
[2022-02-16] MEDS: sucralfate 1 gm Tablet PO ×4 (06:03→20:18)
[2022-02-16 06:31] LABS: Troponin 5 6HR 35.93 ng/L (0-15)
[2022-02-16 06:41] LABS: Troponin 5 6HR Delta 4.93 ng/L (0-12)
[2022-02-16 06:43] LABS: Glucose Point of Care 136 mg/dL (70-110)
[2022-02-16 07:08] LABS: NT Pro B Type Natriuretic Pept 365 pg/mL (0-125); Procalcitonin 0.05 ng/mL (0-0.5); Thyroid Stimulating Hormone 0.38 uIU/mL (0.27-4.20)
[2022-02-16 07:19] LABS: C Reactive Protein 7.6 mg/L (0.0-4.9)
[2022-02-16 08:17] LABS: Hematocrit 23.5 % (42.0-52.0); Hemoglobin 7.1 g/dL (11.7-16.6); Mean Corpuscular HGB Conc 30.2 g/dL (30.0-36.0); Mean Corpuscular Hemoglobin 25.4 pg (28.0-34.0); Mean Corpuscular Volume 83.9 fl (80-94); Mean Platelet Volume 10.3 fL (7.4-10.4); Platelet Count 183 10^3/cmm (130-400); Red Cell Distribution Width 14.4 % (12.1-15.1); White Blood Count 8.9 10^3/uL (4.0-10.0)
[2022-02-16] MEDS: potassium chloride ER 10 mEq Tablet PO (09:01)
[2022-02-16] MEDS: bumetanide 1 mg Tablet PO ×2 (09:02→17:30)
[2022-02-16] MEDS: tamsulosin 0.4 mg Capsule PO (09:02)
[2022-02-16] MEDS: lisinopril 5 mg Tablet PO (09:02)
[2022-02-16] MEDS: insulin glargine 100 units/1 mL 10 UNIT SUBCUT ×2 (09:02→17:30)
[2022-02-16 09:06] LABS: Absolute Eosinophils 0.1 10^3/cmm (0.0-0.7); Absolute Segmented Neutrophil 5.6 10/cmm (1.6-7.1); Eosinophils 2 %; Lymphocytes 28 %; Lymphocytes Absolute 2.5 10^3/cmm (1.2-3.4); Monocytes Absolute 0.6 10^3/cmm (0.1-0.6); Segmented Neutrophils 63 %; Total Cells Counted 100 (0-100)
[2022-02-16] MEDS: metoprolol tartrate 25 mg Tablet 75 MG PO ×2 (09:06→20:17)
[2022-02-16 09:07] LABS: Absolute Neutrophil 5.6 10^3/cmm (1.4-6.5); Platelet Estimate Normal (Normal)
[2022-02-16] MEDS: gabapentin 300 mg Capsule PO ×2 (09:07→20:18)
[2022-02-16 11:21] LABS: Glucose Point of Care 218 mg/dL (70-110)
[2022-02-16] MEDS: insulin lispro 100 unit/1 mL SUBCUT ×2 (12:01→17:29)
--- NOTE | 2022-02-16 14:08 | PM.MISC ---
Miscellaneous Note Note: Seen this morning. Patient states he has been feeling weak and has been monitoring his stools for the last few days as he is felt his generalized weakness come back on. He said he has felt like this even before when his hemoglobin dropped. He was not surprised that it was 7.1 because he could feel the symptoms coming on. In the past he had an EGD and colonoscopy done but nothing was found except a polyp. He did not see any gross blood or blackness in his stools lately. He states overall he just feels weak. 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 I will order FOBT Iron studies Continue Protonix 40 twice daily If FOBT positive will discuss with GEN stallworth for potential scope We will continue to monitor hemoglobin. Check CBC tonight. Will transfuse if less than 7 Control blood sugar At time of my evaluation patient mental status is back to baseline. He knows where he is he knows what is going on he knows why he is in the hospital he is oriented and alert to person time place.
[2022-02-16 15:12] LABS: Iron 23 ug/dL (59-158)
[2022-02-16 15:13] LABS: Percent Saturation 5.3 % (20-50); Total Iron Binding Capacity 427 mcg/dl; Unsaturated Iron Binding 404 ug/dL (112-347)
[2022-02-16 17:08] LABS: Glucose Point of Care 173 mg/dL (70-110)
[2022-02-16] MEDS: levothyroxine 50 mcg Tablet PO (17:30)
--- NOTE | 2022-02-16 19:34 | PC.NURSE ---
NIHSS Pt has some right facial asymetry and weakness of his right arm. He says both are competely normal. Tells me he has history of [place] Palsy and has had facial droop since.
[2022-02-16 19:41] LABS: Basophils % 0.5 %; Eosinophils # 0.1 10^3/uL (0.0-0.8); Eosinophils % 1.2 %; Hematocrit 22.1 % (42.0-52.0); Hemoglobin 6.6 g/dL (11.7-16.6); Lymphocytes # 2.2 10^3/uL (0.8-4.8); Lymphocytes % 25.7 %; Mean Corpuscular HGB Conc 29.9 g/dL (30.0-36.0); Mean Corpuscular Hemoglobin 25.5 pg (28.0-34.0); Mean Corpuscular Volume 85.3 fl (80-94); Mean Platelet Volume 10.3 fL (7.4-10.4); Monocytes % 11.6 %; Neutrophils # 5.26 10^3/uL (1.8-7.7); Neutrophils % 60.5 %; Nucleated Red Blood Cells % 0 %; Platelet Count 195 10^3/cmm (130-400); Red Blood Count 2.59 10^6/uL (4.1-5.3); Red Cell Distribution Width 14.6 % (12.1-15.1); White Blood Count 8.7 10^3/uL (4.0-10.0)
[2022-02-16] MEDS: ondansetron 2 mg/ML SDV 2 mL 4 MG IVP (19:46)
[2022-02-16] MEDS: trazodone 150 mg Tablet PO (20:18)
[2022-02-16 21:10] LABS: Glucose Point of Care 174 mg/dL (70-110)
--- NOTE | 2022-02-16 22:51 | PC.NURSE ---
TRANSFUSION Unit of PRBC's started by RN. Will stay with pt to monitor first 15 min
[2022-02-17] VITALS (13 sets, daily range): BP systolic 136–158; BP diastolic 64–81; PULSE 64–86; RESP 16–18; TEMP 36.3–36.7; O2SAT 93–100
[2022-02-17] MEDS: acetaminophen 325 mg Tablet 650 MG PO (01:42)
[2022-02-17] MEDS: sodium chloride 0.9% (100 ml) 100 ML 125 ML (02:26)
[2022-02-17] MEDS: hyDRALAzine 10 mg Tablet PO ×3 (03:52→20:19)
[2022-02-17] MEDS: cefTRIAXone 1,000 MG in sodium chloride 0.9% (plus) 50 ML 100 MG IV (03:52)
[2022-02-17] MEDS: pantoprazole 40 mg SDV IVP ×2 (03:53→15:08)
[2022-02-17] MEDS: azithromycin 500 MG in sodium chloride 0.9% 250 ML 250 MG IV (04:40)
[2022-02-17 05:15] LABS: Basophils % 0.5 %; Eosinophils # 0.2 10^3/uL (0.0-0.8); Eosinophils % 2.3 %; Hematocrit 27.5 % (42.0-52.0); Lymphocytes # 2.9 10^3/uL (0.8-4.8); Lymphocytes % 33.6 %; Mean Corpuscular HGB Conc 29.1 g/dL (30.0-36.0); Mean Corpuscular Hemoglobin 25.6 pg (28.0-34.0); Mean Corpuscular Volume 88.1 fl (80-94); Mean Platelet Volume 10.5 fL (7.4-10.4); Monocytes # 0.9 10^3/uL (0.2-0.9); Monocytes % 10.9 %; Neutrophils # 4.49 10^3/uL (1.8-7.7); Neutrophils % 52.2 %; Nucleated Red Blood Cells % 0 %; Platelet Count 188 10^3/cmm (130-400); Red Blood Count 3.12 10^6/uL (4.1-5.3); Red Cell Distribution Width 14.5 % (12.1-15.1); White Blood Count 8.6 10^3/uL (4.0-10.0)
[2022-02-17 05:38] LABS: Anion Gap 10.4 (5-19); Blood Urea Nitrogen 18 mg/dL (8-23); Calcium 8.6 mg/dL (8.5-10.5); Carbon Dioxide 32 mmol/L (22-29); Chloride 98 mmol/L (98-107); Glucose 119 mg/dL (65-115); Osmolality Calculated 285 mOsm/kg (285-295); Potassium 4.4 mmol/L (3.5-5.1); Sodium 136 mmol/L (136-145)
[2022-02-17] MEDS: sucralfate 1 gm Tablet PO ×4 (06:10→20:19)
[2022-02-17] MEDS: sertraline 100 mg Tablet PO (06:10)
[2022-02-17 06:21] LABS: Glucose Point of Care 126 mg/dL (70-110)
[2022-02-17] MEDS: gabapentin 300 mg Capsule PO ×2 (09:54→20:19)
[2022-02-17] MEDS: insulin glargine 100 units/1 mL 10 UNIT SUBCUT ×2 (09:55→17:17)
[2022-02-17] MEDS: lisinopril 5 mg Tablet PO (09:55)
[2022-02-17] MEDS: metoprolol tartrate 25 mg Tablet 75 MG PO ×2 (09:55→20:19)
[2022-02-17] MEDS: bumetanide 1 mg Tablet PO ×2 (09:55→17:18)
[2022-02-17] MEDS: potassium chloride ER 10 mEq Tablet PO (09:56)
[2022-02-17] MEDS: tamsulosin 0.4 mg Capsule PO (09:56)
--- NOTE | 2022-02-17 11:13 | PM.PN ---
Subjective Subjective: Seen this morning. Overnight patient's hemoglobin dropped to 6.6. He required 1 unit of blood transfusion. He is status post 1 unit at this time. Repeat hemoglobin is 8.0. He states he does not feel any better and still feels overall weak. Patient recently had a EGD colonoscopy done in October 2021. It showed nonerosive gastritis. Colonoscopy showed a polyp that was clipped. Vitals/I&O/Wt Last Vital Signs Temp 97.6 F 02/17/22 04:59 Pulse 78 02/17/22 08:02 Resp 16 02/17/22 08:02 BP 154/81 02/17/22 08:00 Pulse Ox 98 02/17/22 08:02 O2 Del Method 02/17/22 08:02 O2 Flow Rate 3 02/17/22 08:02 02/16/22 02/17/22 02/17/22 22:59 06:59 14:59 Intake Total 240 / 960 1010 / 1970 340 / 340 Output Total 300 / 975 1500 / 2475 Balance -60 / -15 -490 / -505 340 / 340 Weight last 48 hrs Weight 136.078 kg Weight 136.078 kg Physical Exam Narrative: General: Alert oriented x3, patient seen sitting up in bed appearing comfortable at this time on 2 L nasal cannula which is his baseline. HEENT: Normocephalic, atraumatic, EOMI, breathing properly, no acute distress Cardio: Regular rate rhythm, normal S1-S2, Respiratory: To auscultation bilaterally, no wheezes no rhonchi, diminished at bases GI: Abdomen soft, nontender, nondistended, bowel sounds + Extremities: No lower extremity edema Data : 02/17/22 04:23 02/17/22 04:27 Micro: Microbiology 02/15/22 23:59 Blood Culture - Preliminary Blood NEGATIVE TO DATE A&P Assessment and plan (1) Altered mental status: Status: Acute (2) Heart failure with preserved ejection fraction: Status: Acute (3) Chronic respiratory failure with hypoxia: Status: Acute (4) Hypochromic microcytic anemia: Status: Acute (5) Anxiety and depression: Status: Acute (6) GERD without esophagitis: Status: Acute (7) Acquired hypothyroidism: Status: Acute (8) Atrial fibrillation: Status: Acute (9) Diabetic peripheral neuropathy associated with type 2 diabetes mellitus: Status: Acute (10) HTN (hypertension): Status: Acute Plan #Acute on chronic anemia #Altered mental status with generalized weakness present at admission?resolved by next morning #Atrial fibrillation, not on anticoagulation due to GI bleed history #Insulin-dependent type 2 diabetes mellitus #Hypertension #Heart failure with preserved ejection fraction #History of COPD #History of smoking #Recent hospitalization for necrotizing fasciitis of right shoulder requiring prolonged intubation mechanical ventilation reversal of tracheostomy ? Patient is alert oriented x3, weakness is resolved, etiology unclear ? He was hypotensive on admission. Mental status was probably due to hypertensive encephalopathy. This has resolved as well. ? He also has a history of atrial fibrillation not on anticoagulation possibly had a TIA episode. ? Hemoglobin at admission was 7. No evidence of black stools ? No evidence of UTI. Urine positive for marijuana ? CT abdomen, head CT no acute findings ? Head CT does show posterior left greater than right atelectasis no shortness of breath complaints, fever or leukocytosis. ? Continue to manage blood pressure continue home medications ? Rocephin and azithromycin to be continued at this time to complete 7 days of therapy due to chest CT showing some infiltrates. ? Lantus 10 units twice a day, low-dose sliding scale ? Patient did require a unit of blood overnight. Continue to monitor hemoglobin every 12 hours. Continue Carafate, Protonix. ? Patient recently had EGD colonoscopy October 2021 with no significant findings ? Patient may potentially benefit from PillCam endoscopy. We will consult GI for further input. Discussed with Dr. Rizo. He recommended to monitor patient for now. Should he develop gross blood per rectum or melanotic stool he will require emergent EGD colonoscopy otherwise we will possibly plan for Saturday or see how he does clinically today and tomorrow. Due to his recent scope we will not barnett to another procedure. We will continue to monitor patient in the hospital for now. -Full code -SCDs for DVT prophylaxis Attestations Medical Necessity Statement*: Continue to monitor in the hospital for anemia. Patient has required a blood transfusion. We will continue monitor hemoglobin for now. 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
[2022-02-17 11:43] LABS: Glucose Point of Care 228 mg/dL (70-110)
[2022-02-17] MEDS: insulin lispro 100 unit/1 mL SUBCUT (12:08)
[2022-02-17] MEDS: ondansetron 2 mg/ML SDV 2 mL 4 MG IVP (14:50)
[2022-02-17 17:07] LABS: Glucose Point of Care 130 mg/dL (70-110)
[2022-02-17] MEDS: levothyroxine 50 mcg Tablet PO (17:18)
[2022-02-17 18:52] LABS: Basophils % 0.4 %; Eosinophils # 0.2 10^3/uL (0.0-0.8); Hematocrit 24.7 % (42.0-52.0); Hemoglobin 7.5 g/dL (11.7-16.6); Lymphocytes # 1.9 10^3/uL (0.8-4.8); Mean Corpuscular HGB Conc 30.4 g/dL (30.0-36.0); Mean Corpuscular Hemoglobin 26.3 pg (28.0-34.0); Mean Corpuscular Volume 86.7 fl (80-94); Monocytes # 0.8 10^3/uL (0.2-0.9); Monocytes % 9.9 %; Neutrophils % 62.4 %; Nucleated Red Blood Cells % 0 %; Platelet Count 178 10^3/cmm (130-400); Red Blood Count 2.85 10^6/uL (4.1-5.3); Red Cell Distribution Width 14.4 % (12.1-15.1); White Blood Count 7.7 10^3/uL (4.0-10.0)
[2022-02-17] MEDS: trazodone 150 mg Tablet PO (20:20)
[2022-02-18] VITALS (7 sets, daily range): BP systolic 137–173; BP diastolic 69–75; PULSE 65–78; RESP 15–18; TEMP 36.5–36.7; O2SAT 91–99
[2022-02-18] MEDS: acetaminophen 325 mg Tablet 650 MG PO ×2 (01:58→20:45)
[2022-02-18] MEDS: cefTRIAXone 1,000 MG in sodium chloride 0.9% (plus) 50 ML 100 MG IV (03:38)
[2022-02-18] MEDS: hyDRALAzine 10 mg Tablet PO ×3 (03:38→20:44)
[2022-02-18] MEDS: azithromycin 500 MG in sodium chloride 0.9% 250 ML 250 MG IV (04:24)
[2022-02-18] MEDS: pantoprazole 40 mg SDV IVP ×2 (04:33→15:49)
[2022-02-18 05:54] LABS: Basophils # 0.1 10^3/uL (0.0-0.1); Basophils % 0.6 %; Eosinophils # 0.2 10^3/uL (0.0-0.8); Eosinophils % 2.3 %; Hematocrit 26.6 % (42.0-52.0); Hemoglobin 7.9 g/dL (11.7-16.6); Lymphocytes # 2.4 10^3/uL (0.8-4.8); Lymphocytes % 30.4 %; Mean Corpuscular HGB Conc 29.7 g/dL (30.0-36.0); Mean Corpuscular Volume 87.5 fl (80-94); Mean Platelet Volume 10.5 fL (7.4-10.4); Monocytes # 0.9 10^3/uL (0.2-0.9); Monocytes % 11.1 %; Neutrophils # 4.29 10^3/uL (1.8-7.7); Neutrophils % 55.3 %; Nucleated Red Blood Cells % 0 %; Platelet Count 189 10^3/cmm (130-400); Red Blood Count 3.04 10^6/uL (4.1-5.3); Red Cell Distribution Width 14.5 % (12.1-15.1); White Blood Count 7.8 10^3/uL (4.0-10.0)
[2022-02-18 06:26] LABS: Glucose Point of Care 134 mg/dL (70-110)
[2022-02-18 06:28] LABS: Anion Gap 12.2 (5-19); Blood Urea Nitrogen 22 mg/dL (8-23); Calcium 8.5 mg/dL (8.5-10.5); Carbon Dioxide 32 mmol/L (22-29); Chloride 97 mmol/L (98-107); Glomerular Filtration Rate 50.7 mL/min (90-130); Glucose 156 mg/dL (65-115); Osmolality Calculated 291 mOsm/kg (285-295); Potassium 4.2 mmol/L (3.5-5.1); Sodium 137 mmol/L (136-145)
[2022-02-18] MEDS: sucralfate 1 gm Tablet PO ×4 (06:28→20:45)
[2022-02-18] MEDS: sertraline 100 mg Tablet PO (06:28)
[2022-02-18] MEDS: gabapentin 300 mg Capsule PO ×2 (08:55→20:44)
[2022-02-18] MEDS: lisinopril 5 mg Tablet PO (08:55)
[2022-02-18] MEDS: bumetanide 1 mg Tablet PO (08:56)
[2022-02-18] MEDS: tamsulosin 0.4 mg Capsule PO (08:56)
[2022-02-18] MEDS: metoprolol tartrate 25 mg Tablet 75 MG PO ×2 (08:56→20:45)
[2022-02-18] MEDS: insulin glargine 100 units/1 mL 10 UNIT SUBCUT ×2 (08:57→17:30)
[2022-02-18] MEDS: potassium chloride ER 10 mEq Tablet PO (09:02)
[2022-02-18] MEDS: lactulose oral liq 20 gm/30 mL UDC PO (09:08)
[2022-02-18 11:07] LABS: Glucose Point of Care 214 mg/dL (70-110)
[2022-02-18] MEDS: insulin lispro 100 unit/1 mL SUBCUT ×2 (11:40→17:31)
--- NOTE | 2022-02-18 12:43 | USCV_ITS ---
William Juan Age: 66 Gender: M : 1955 Exam Date: 02/18/2022 13:02 Ordering Phys: Daksha العلي MD Technologist: Reynaldo Dumont Exam Location: [facility] [place] Indication: chf BP: 132 / 84 HR: 66 Rhythm: Sinus Technical Quality: Adequate MEASUREMENTS (Male / Female) Normal Values 2D ECHO LV Diastolic Diameter PLAX 4.1 cm 4.2 - 5.9 / 3.9 - 5.3 cm LV Systolic Diameter PLAX 2.8 cm IVS Diastolic Thickness 1.0 cm 0.6 - 1.0 / 0.6 - 0.9 cm IVS Systolic Thickness 1.6 cm LVPW Diastolic Thickness 1.1 cm 0.6 - 1.0 / 0.6 - 0.9 cm LVPW Systolic Thickness 1.2 cm LVOT Diameter 2.1 cm LV Ejection Fraction 2D Teich 59.2 % LV Ejection Fraction MOD 2C 68.1 % LV Ejection Fraction 2C AL 69.4 % LA Diameter 3.9 cm M-MODE Aortic Annulus Diameter 3.8 cm LA Ao Ratio MM 1.2 MV E Point Septal Separation 0.8 cm FINDINGS Left Ventricle This is a 2D examination only. No M-mode or Doppler examination performed. Normal left ventricular size, systolic function and wall thickness, with no regional wall motion abnormalities. Left ventricular ejection fraction is estimated at 55-60 %. Right Ventricle Normal right ventricular size and systolic function. Right Atrium The right atrium is normal in size. Left Atrium Mildly increased left atrial size. Mitral Valve Structurally normal mitral valve. Aortic Valve Structurally normal trileaflet aortic valve. Tricuspid Valve Structurally normal tricuspid valve. Pulmonic Valve Pulmonic valve not well visualized. Pericardium Normal pericardium without effusion. Aorta Normal ascending aorta dimension. IVC Inferior vena cava not visualized. CONCLUSIONS This is a 2D examination only. No M-mode or Doppler examination performed. Normal left ventricular size, systolic function and wall thickness, with no regional wall motion abnormalities. Left ventricular ejection fraction is estimated at 55-60 %. There is no change from the previous study done 08/07/2021 Dr. Shaka Varela MD (Electronically Signed) Final Date: 18 February 2022 17:33 S
--- NOTE | 2022-02-18 12:44 | P.PN_ITS ---
Vitals/I&O/Wt Last Vital Signs Temp 97.7 F 02/18/22 08:00 Pulse 66 02/18/22 08:00 Resp 16 02/18/22 08:00 BP 159/75 02/18/22 08:00 Pulse Ox 98 02/18/22 08:00 O2 Del Method 02/18/22 08:00 O2 Flow Rate 3 02/18/22 08:00 02/17/22 02/18/22 02/18/22 22:59 06:59 14:59 Intake Total 720 / 1300 770 / 2070 610 / 610 Output Total 700 / 700 1600 / 2300 Balance 20 / 600 -830 / -230 610 / 610 Physical Exam Narrative: General: Alert oriented x3, patient seen sitting up in bed appearing comfortable at this time on 2 L nasal cannula which is his baseline. HEENT: Normocephalic, atraumatic, EOMI, breathing properly, no acute distress Cardio: Regular rate rhythm, normal S1-S2, Respiratory: To auscultation bilaterally, no wheezes no rhonchi, diminished at bases GI: Abdomen soft, nontender, nondistended, bowel sounds + Extremities: No lower extremity edema Data : 02/18/22 05:02 02/18/22 05:02 A&P Assessment and plan (1) Altered mental status: Status: Acute (2) Heart failure with preserved ejection fraction: Status: Acute (3) Chronic respiratory failure with hypoxia: Status: Acute (4) Hypochromic microcytic anemia: Status: Acute (5) Anxiety and depression: Status: Acute (6) GERD without esophagitis: Status: Acute (7) Acquired hypothyroidism: Status: Acute (8) Atrial fibrillation: Status: Acute (9) Diabetic peripheral neuropathy associated with type 2 diabetes mellitus: Status: Acute (10) HTN (hypertension): Status: Acute Plan #Acute on chronic anemia -stable #MONCHO #Altered mental status with generalized weakness present at admission?resolved by next morning #Atrial fibrillation, not on anticoagulation due to GI bleed history #Insulin-dependent type 2 diabetes mellitus #Hypertension #Heart failure with preserved ejection fraction #History of COPD #History of smoking #Recent hospitalization for necrotizing fasciitis of right shoulder requiring prolonged intubation mechanical ventilation reversal of tracheostomy ? Patient is alert oriented x3, weakness is resolved, etiology unclear ? He was hypotensive on admission. Mental status was probably due to hypertensive encephalopathy. This has resolved as well. ? He also has a history of atrial fibrillation not on anticoagulation possibly had a TIA episode. ? Hemoglobin at admission was 7. No evidence of black stools ? No evidence of UTI. Urine positive for marijuana ? CT abdomen, head CT no acute findings ? Head CT does show posterior left greater than right atelectasis no shortness of breath complaints, fever or leukocytosis. ? Continue to manage blood pressure continue home medications ? Rocephin and azithromycin to be continued at this time to complete 7 days of therapy due to chest CT showing some infiltrates. ? Lantus 10 units twice a day, low-dose sliding scale ? Received 1 unit blood transfusion on 02/16.. Continue Carafate, Protonix. ? Patient recently had EGD colonoscopy October 2021 with no significant findings ? Patient may potentially benefit from PillCam endoscopy. Due to his recent scope we will not barnett to another procedure. We will continue to monitor patient in the hospital for now. Hemoglobin is now stable. We will refer as an outpatient for PillCam endoscopy. -Creatinine 1.4 today. - MONCHO. We will start normal saline 75 cc/h. Hold diuretics. -Full code -SCDs for DVT prophylaxis Attestations Medical Necessity Statement*: Patient has a newly developed acute kidney injury. He will need IV fluids and we need to hold diuretics today. Once kidney function improved we will plan for discharge. Coding Level of Care Code Acute [employer] Worker for Chg Fwd Diagnoses Altered mental status R41.82 Heart failure with preserved ejection fraction I50.30 Chronic respiratory failure with hypoxia J96.11 Hypochromic microcytic anemia D50.9 Anxiety and depression F41.9; F32.A GERD without esophagitis K21.9 Acquired hypothyroidism E03.9 Atrial fibrillation I48.91 Diabetic peripheral neuropathy associated with type 2 diabetes mellitus E11.42 HTN (hypertension) I10
[2022-02-18] MEDS: iron sucrose 200 MG in sodium chloride 0.9% (100 ml) 100 ML 220 MG IV (14:59)
[2022-02-18] MEDS: sodium chloride 0.9% 1,000 ML 75 ML IV (15:01)
[2022-02-18 17:10] LABS: Glucose Point of Care 184 mg/dL (70-110)
[2022-02-18] MEDS: levothyroxine 50 mcg Tablet PO (17:31)
[2022-02-18] MEDS: trazodone 150 mg Tablet PO (20:45)
[2022-02-18 20:52] LABS: Glucose Point of Care 203 mg/dL (70-110)
[2022-02-19] MEDS: pantoprazole 40 mg SDV IVP (03:33)
[2022-02-19] MEDS: hyDRALAzine 10 mg Tablet PO (03:37)
[2022-02-19] MEDS: cefTRIAXone 1,000 MG in sodium chloride 0.9% (plus) 50 ML 100 MG IV (03:38)
[2022-02-19 03:52] VITALS: BP 173/69; PULSE 78; RESP 17; TEMP 36.6
[2022-02-19 04:06] VITALS: BP 190/80; PULSE 71; RESP 18; TEMP 36.6; O2SAT 96
[2022-02-19 04:59] VITALS: O2SAT 97
[2022-02-19] MEDS: sertraline 100 mg Tablet PO (05:32)
[2022-02-19] MEDS: sodium chloride 0.9% 1,000 ML 75 ML IV (05:32)
[2022-02-19] MEDS: azithromycin 500 MG in sodium chloride 0.9% 250 ML 250 MG IV (05:32)
[2022-02-19 05:57] LABS: Glucose Point of Care 133 mg/dL (70-110)
[2022-02-19 06:44] LABS: Glucose Point of Care 164 mg/dL (70-110)
[2022-02-19 07:42] VITALS: BP 165/74; PULSE 68; RESP 18; TEMP 36.6; O2SAT 95
[2022-02-19 09:09] LABS: Anion Gap 15.6 (5-19); Blood Urea Nitrogen 20 mg/dL (8-23); Calcium 8.8 mg/dL (8.5-10.5); Carbon Dioxide 28 mmol/L (22-29); Chloride 99 mmol/L (98-107); Glucose 108 mg/dL (65-115); Osmolality Calculated 289 mOsm/kg (285-295); Potassium 4.6 mmol/L (3.5-5.1); Sodium 138 mmol/L (136-145)
[2022-02-19] MEDS: sucralfate 1 gm Tablet PO (09:16)
[2022-02-19] MEDS: insulin lispro 100 unit/1 mL SUBCUT (09:16)
[2022-02-19] MEDS: gabapentin 300 mg Capsule PO (09:17)
[2022-02-19] MEDS: tamsulosin 0.4 mg Capsule PO (09:17)
[2022-02-19] MEDS: lisinopril 5 mg Tablet PO (09:17)
[2022-02-19] MEDS: insulin glargine 100 units/1 mL 10 UNIT SUBCUT (09:17)
[2022-02-19] MEDS: metoprolol tartrate 25 mg Tablet 75 MG PO (09:17)
[2022-02-19 09:27] VITALS: PULSE 75; RESP 18; O2SAT 97
[2022-02-19] MEDS: potassium chloride ER 10 mEq Tablet PO (09:30)
[2022-02-19 09:40] LABS: Basophils # 0.1 10^3/uL (0.0-0.1); Basophils % 0.9 %; Eosinophils # 0.2 10^3/uL (0.0-0.8); Eosinophils % 2.4 %; Hematocrit 26.9 % (42.0-52.0); Hemoglobin 8.1 g/dL (11.7-16.6); Mean Corpuscular HGB Conc 30.1 g/dL (30.0-36.0); Mean Corpuscular Hemoglobin 26.1 pg (28.0-34.0); Mean Corpuscular Volume 86.8 fl (80-94); Mean Platelet Volume 10.8 fL (7.4-10.4); Monocytes # 0.9 10^3/uL (0.2-0.9); Monocytes % 12.2 %; Neutrophils # 3.86 10^3/uL (1.8-7.7); Neutrophils % 55.2 %; Nucleated Red Blood Cells % 0 %; Platelet Count 196 10^3/cmm (130-400); Red Cell Distribution Width 14.6 % (12.1-15.1)
--- NOTE | 2022-02-19 09:57 | PM.DCS ---
Discharge Providers Date of Admission: 02/18/22 14:47 Date of Discharge: February 19, 2022 Attending Provider at Admission: Kiran Quinones MD Attending Provider at Discharge: Daksha العلي MD Primary Care Provider: Rachel Bills MD Diagnoses at Discharge Discharge Diagnosis (1) Altered mental status: Status: Resolved (2) Heart failure with preserved ejection fraction: Status: Acute (3) Chronic respiratory failure with hypoxia: Status: Acute (4) Hypochromic microcytic anemia: Status: Acute (5) Anxiety and depression: Status: Acute (6) GERD without esophagitis: Status: Acute (7) Acquired hypothyroidism: Status: Acute (8) Atrial fibrillation: Status: Acute (9) Diabetic peripheral neuropathy associated with type 2 diabetes mellitus: Status: Acute (10) HTN (hypertension): Status: Acute Reason for Visit Reason for Visit: AMS Brief History: As per Dr. Quinones Juan Thomas is a 66 year old male with a past medical history of atrial fibrillation not on anticoagulation due to GI bleed history, history of insulin-dependent type 2 diabetes mellitus, hypertension, heart failure with preserved ejection fraction, history of COPD, history of smoking, recent hospitalization for necrotizing fasciitis of the right shoulder requiring prolonged intubation mechanical ventilation, reversal of tracheostomy who presents [facility] due to increased confusion, generalized weakness, fatigue.? Patient tells me that he lives at home by himself, he is able to ambulate without any difficulty, he is able to take care of himself.? He tells me this evening he started to not feel well, no fevers, no chills, but was not feeling well.? He then tells me that he proceeded to have generalized weakness, no focal neurologic deficits he has bilateral lower extremity peripheral neuropathy.? No slurring of his words, no facial droop, but he tells me that he was so weak he had trouble lifting both his arms.? He was also increasingly confused.? Denies any dysuria, no hematuria, no shortness of breath, no abdominal pain, no diarrhea, no chest pain.? Currently he is alert oriented x3, following all commands, no facial droop no slurring of his words, no paresthesias, no weakness what I did neurologic testing, testing of his strength he tells me that he feels a lot better but a few hours ago he was unable to move all of his extremities due to weakness. Hospital Course Hospital Course Patient presented to the ER with altered. And weakness. By the time he got admitted to the hospital the weakness had already resolved. CT head did not show any acute findings, head CTA did not show any acute findings. Urine positive for marijuana, UA had no evidence of UTI. He does have a history of atrial fibrillation but not on anticoagulation due to history of GI bleed. Hemoglobin 7 at admission. He was placed on Protonix, Carafate. Patient was monitoring his stools few days before coming in. He had a recent EGD colonoscopy done on October 2021. 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 He was given 1 unit of blood and hemoglobin came up. Remained stable. FOBT was positive. Due to patient's recent colonoscopy endoscopy and hemoglobin being currently stable with no black tarry stools or gross blood it was decided to discharge patient with referral for [facility] endoscopy as an outpatient. Patient was referred to Dr. Smith's office. I also discussed the case with him who happily excepted the referral. Patient also had a limited echo done which did not show much of a change compared to last time. Patient was also given an office visit referral to hematology for further work-up of his anemia. During hospital stay he did develop a little bit of an MONCHO. Patient's diuretic was held and he was given some fluids. Patient was sent home on his usual diuretic dose after her IV hydration. I did discuss the possibility of doing a low-dose of diuretic but patient did not agree. He stated he will continue to monitor BMP as an outpatient follow-up with his primary care doctor but would like to continue his current Bumex dose. Patient was discharged home in stable condition. All questions were answered. This documentation was created by [employer] clinical partner software. Every effort was made to ensure accuracy of clinical partner. Any obvious errors or omissions should be clarified with the author of the document. Physical Exam Narrative: General: Alert oriented x3, patient seen sitting up in bed appearing comfortable at this time on 2 L nasal cannula which is his baseline. HEENT: Normocephalic, atraumatic, EOMI, breathing properly, no acute distress Cardio: Regular rate rhythm, normal S1-S2, Respiratory: To auscultation bilaterally, no wheezes no rhonchi, diminished at bases GI: Abdomen soft, nontender, nondistended, bowel sounds + Extremities: No lower extremity edema Discharge Data Studies Completed and Pending Completed Studies During Hospitalization Category Date Time Status CT chest abdomen pelvis [CT chest abd pel w con*] Stat Cat Scan 02/16/22 00:[address] head wo con* [id number] Stat Cat Scan 02/15/22 23:00 Completed CTA head neck [CT angio headneck* [id number]] Stat Cat Scan 02/16/22 00:35 Completed XR chest 1V portable [id number] Stat Exams 02/15/22 23:00 Completed CV. echo limited [id number] Routine Ultrasound 02/18/22 12:43 Completed Pending at discharge Category Date Time Status Blood Culture Stat Lab 02/15/22 23:01 Results Radiology Impressions Chest X-Ray 02/15/22 23:00 IMPRESSION: 1. Left lower lobe atelectasis versus minimal infiltrate. 2. Cardiomegaly. Head CT 02/15/22 23:00 IMPRESSION: No acute intracranial abnormality. Chest/Abdomen/Pelvis CT 02/16/22 00:35 IMPRESSION: 1. Negative for pulmonary embolus. 2. Cardiomegaly. 3. Coronary artery atherosclerotic calcifications. 4. Scattered prominent mediastinal lymph nodes measuring 10 mm, nonspecific. 5. Bibasilar left greater than right atelectasis versus infiltrate. IMPRESSION: 1. Negative for acute inflammatory process in the abdomen or pelvis. 2. Small to moderate umbilical hernia without bowel or inflammation. 3. Minimal edema about the pancreatic head may reflect a mild pancreatitis in the appropriate clinical setting Head/Neck CTA 02/16/22 00:35 IMPRESSION: There is no evidence for aneurysmal dilatation, occlusion or significant stenoses of the visualized intracranial arteries. IMPRESSION: No significant stenosis or occlusion. REFERENCES: NASCET CRITERIA. The degree of stenosis in the cervical segment of the internal carotid artery is based on NASCET criteria. Normal is no stenosis. Mild is less than 50% stenosis. Moderate is 50-69% stenosis. Severe is 70% to 99% stenosis. Total occlusion is no detectable patent lumen. Laboratory Results WBC 7.0 10^3/uL (4.0-10.0) 02/19/22 08:33 RBC 3.10 10^6/uL (4.1-5.3) L 02/19/22 08:33 Hgb 8.1 g/dL (11.7-16.6) L 02/19/22 08:33 Hct 26.9 % (42.0-52.0) L 02/19/22 08:33 MCV 86.8 fl (80-94) 02/19/22 08:33 MCH 26.1 pg (28.0-34.0) L 02/19/22 08:33 MCHC 30.1 g/dL (30.0-36.0) 02/19/22 08:33 RDW 14.6 % (12.1-15.1) 02/19/22 08:33 Plt Count 196 10^3/cmm (130-400) 02/19/22 08:33 MPV 10.8 fL (7.4-10.4) H 02/19/22 08:33 Neut % (Auto) 55.2 % 02/19/22 08:33 Lymph % (Auto) 29.0 % 02/19/22 08:33 Lynn % (Auto) 12.2 % 02/19/22 08:33 Eos % (Auto) 2.4 % 02/19/22 08:33 Baso % (Auto) 0.9 % 02/19/22 08:33 Neut # (Auto) 3.86 10^3/uL (1.8-7.7) 02/19/22 08:33 Lymph # (Auto) 2.0 10^3/uL (0.8-4.8) 02/19/22 08:33 Lynn # (Auto) 0.9 10^3/uL (0.2-0.9) 02/19/22 08:33 Eos # (Auto) 0.2 10^3/uL (0.0-0.8) 02/19/22 08:33 Baso # (Auto) 0.1 10^3/uL (0.0-0.1) 02/19/22 08:33 Nucleated RBC % (auto) 0 % 02/19/22 08:33 Total Counted 100 (0-100) 02/16/22 08:03 Atypical Lymphs % 0.0 % (0-5) 02/16/22 08:03 Absolute Neutrophils 5.6 10^3/cmm (1.4-6.5) 02/16/22 08:03 Segmented Neutrophils 63 % 02/16/22 08:03 Abs Segm Neuts (Man) 5.6 10/cmm (1.6-7.1) 02/16/22 08:03 Band Neutrophils 0.0 % 02/16/22 08:03 Abs Band Neuts (Man) 0.0 10^3/cmm (0.0-1.2) 02/16/22 08:03 Absolute Lymphocytes 2.5 10^3/cmm (1.2-3.4) 02/16/22 08:03 Lymphocytes (Manual) 28 % 02/16/22 08:03 Monocytes (Manual) 7.0 % 02/16/22 08:03 Absolute Monocytes 0.6 10^3/cmm (0.1-0.6) 02/16/22 08:03 Eosinophils (Manual) 2 % 02/16/22 08:03 Absolute Eosinophils 0.1 10^3/cmm (0.0-0.7) 02/16/22 08:03 Basophils (Manual) 0.0 % 02/16/22 08:03 Absolute Basophils 0.0 10^3/cmm (0.0-0.2) 02/16/22 08:03 Nucleated RBCs # 0.0 /100WBC 02/19/22 08:33 Platelet Estimate Normal (Normal) 02/16/22 08:03 Specimen Type Arterial 02/15/22 23:12 Sample Site Radial, left 02/15/22 23:12 ABG pH 7.38 (7.35-7.45) 02/15/22 23:12 ABG pCO2 56.3 mmHg (35-45) H 02/15/22 23:12 ABG pO2 61.0 mmHg (80.0-100.0) L 02/15/22 23:12 ABG HCO3 33.5 mmol/L (22-26) H 02/15/22 23:12 ABG Base Excess 7.6 mmol/L (-2.0-2.0) H 02/15/22 23:12 Matthew Test Pos 02/15/22 23:12 Hematocrit 20.6 % (42-52) L 02/15/22 23:12 O2 Delivery Device Nc 02/15/22 23:12 O2 Liters/Min 4.0 % 02/15/22 23:12 Cottonseed Meat Presser ID Rick 02/15/22 23:12 Sodium 138 mmol/L (136-145) 02/19/22 08:33 Potassium 4.6 mmol/L (3.5-5.1) 02/19/22 08:33 Chloride 99 mmol/L (98-107) 02/19/22 08:33 Carbon Dioxide 28 mmol/L (22-29) 02/19/22 08:33 Anion Gap 15.6 (5-19) 02/19/22 08:33 BUN 20 mg/dL (8-23) 02/19/22 08:33 Creatinine 1.1 mg/dL (0.7-1.2) 02/19/22 08:33 GFR Calculation 67.0 mL/min (90-130) L 02/19/22 08:33 Glucose 108 mg/dL (65-115) 02/19/22 08:33 POC Glucose 164 mg/dL (70-110) H 02/19/22 06:32 Calculated Osmolality 289 mOsm/kg (285-295) 02/19/22 08:33 Calcium 8.8 mg/dL (8.5-10.5) 02/19/22 08:33 Iron 23 ug/dL (59-158) L 02/16/22 05:45 TIBC 427 mcg/dl 02/16/22 05:45 % Saturation 5.3 % (20-50) L 02/16/22 05:45 Unsat Iron Binding 404 ug/dL (112-347) H 02/16/22 05:45 Total Bilirubin 0.2 mg/dL (0.15-1.2) 02/15/22 23:10 AST 27 U/L (0-40) 02/15/22 23:10 ALT 20 U/L (0-41) 02/15/22 23:10 Alkaline Phosphatase 164 U/L (40-130) H 02/15/22 23:10 Troponin T Baseline 31 ng/L (0-15) H 02/15/22 23:10 Troponin T 120 Minute 31.96 ng/L (0-15) H 02/16/22 01:56 Delta Troponin T 0.96 ABS# (0-10) 02/16/22 01:56 Troponin T Hi Sens 6Hr 35.93 ng/L (0-15) H 02/16/22 05:10 Troponin T Hi Sens 6Hr Delta 4.93 ng/L (0-12) 02/16/22 05:10 C-Reactive Protein 7.6 mg/L (0.0-4.9) H 02/16/22 05:10 NT-Pro-B Natriuret Pep 365 pg/mL (0-125) H 02/16/22 05:10 Total Protein 7.0 g/dL (6.6-8.7) 02/15/22 23:10 Albumin 3.3 g/dL (3.5-5.2) L 02/15/22 23:10 Globulin 3.7 g/dL (1.3-4.6) 02/15/22 23:10 Lipase 28 U/L (13-60) 02/16/22 01:56 Procalcitonin 0.05 ng/mL (0-0.5) 02/16/22 05:10 TSH 0.38 uIU/mL (0.27-4.20) 02/16/22 05:10 Urine Color Yellow (Yellow) 02/16/22 00:50 Urine Appearance Clear (CLEAR) 02/16/22 00:50 Urine pH 5 (5-7) 02/16/22 00:50 Ur Specific Rincon 1.020 (1.005-1.030) 02/16/22 00:50 Urine Protein Neg (Negative) 02/16/22 00:50 Urine Glucose (UA) Norm (Normal) 02/16/22 00:50 Urine Ketones Negative (Negative) 02/16/22 00:50 Urine Blood 2+ (Negative) H 02/16/22 00:50 Urine Nitrate Negative (Negative) 02/16/22 00:50 Urine Bilirubin Neg (Negative) 02/16/22 00:50 Urine Urobilinogen Norm mg/dL (Negative) 02/16/22 00:50 Ur Leukocyte Esterase Negative (Negative) 02/16/22 00:50 Urine RBC 5-10 /hpf (0-2) H 02/16/22 00:50 Urine WBC 0-4 /hpf (0-5) H 02/16/22 00:50 Ur Squamous Epith Cells 0-4 /hpf (0-5) H 02/16/22 00:50 Amorphous Sediment 1+ /hpf 02/16/22 00:50 Urine Bacteria None /hpf (NONE) 02/16/22 00:50 Hyaline Casts 0-4 /lpf H 02/16/22 00:50 Urine Mucus 2+ /hpf 02/16/22 00:50 Salicylates 1.7 mg/dL (3-10) L 02/15/22 23:10 Urine Opiates Screen Negative ng/mL (Negative) 02/16/22 00:50 Acetaminophen < 5.0 ug/mL (10-30) L 02/15/22 23:10 Ur Barbiturates Screen Negative ng/mL (Negative) 02/16/22 00:50 Ur Phencyclidine Scrn Negative ng/mL (Negative) 02/16/22 00:50 Ur Amphetamines Screen Negative ng/mL (Negative) 02/16/22 00:50 U Benzodiazepines Scrn Negative ng/mL (Negative) 02/16/22 00:50 Urine Cocaine Screen Negative ng/mL (Negative) 02/16/22 00:50 U Marijuana (THC) Screen Positive ng/mL (Negative) H 02/16/22 00:50 Ethyl Alcohol < 10 mg/dL (0-10) 02/15/22 23:10 Coronavirus 229E (PCR) Not detected (NOT DETECT) 02/15/22 23:18 SARS-CoV-2 (PCR) Not detected (NOT DETECT) 02/15/22 23:18 Blood Type O Negative 02/16/22 05:45 Rho(D) Type Negative 02/16/22 05:45 Antibody Screen Negative 02/16/22 05:45 Crossmatch See Detail 02/16/22 05:45 Vitals Last Vital Signs Temp 97.8 F 02/19/22 07:42 Pulse 75 02/19/22 09:27 Resp 18 02/19/22 09:27 BP 165/74 02/19/22 07:42 Pulse Ox 97 02/19/22 09:27 O2 Del Method 02/19/22 09:27 O2 Flow Rate 3 02/19/22 09:27 Discharge Plan Discharge Patient Disposition: Home Condition: Stable Prescriptions: New metoprolol tartrate 25 mg Tablet 75 mg PO BID@0900,2100 30 Days Qty: 60 0RF hydralazine 25 mg tablet 50 mg PO Q8H 30 Days Qty: 180 0RF sucralfate 1 gram Tablet 1 g PO AC&BEDTIME 14 Days Qty: 28 0RF Continued potassium chloride 10 mEq tablet extended release 10 meq PO DAILY Bevespi Aerosphere 9-4.8 mcg HFA aerosol inhaler 2 puff inhalation Q12H 30 Days Qty: 10.7 4RF sertraline 100 mg tablet 100 mg PO QAM clonazepam 1 mg tablet 0.5 mg PO BEDTIME PRN (Reason: Sleep) levothyroxine 50 mcg tablet 50 mcg PO QPM insulin aspart U-100 [Novolog Flexpen U-100 Insulin] 100 unit/mL (3 mL) insulin pen See Rx Instructions .ROUTE .COMPLEX Rx Instructions: sliding scale subcutaneously before meals ipratropium-albuterol 0.5 mg-3 mg(2.5 mg base)/3 mL Solution For Nebulization 3 ml INHALATION Q6H PRN (Reason: Shortness Of Breath) tamsulosin 0.4 mg Capsule 0.4 mg PO DAILY@0900 gabapentin 300 mg Capsule 300 mg PO BID@08,20 alum-mag hydroxide-simeth 200-200-20 mg/5 mL Suspension 30 ml PO Q4H PRN (Reason: Heartburn) Lantus Solostar U-100 Insulin 100 unit/mL (3 mL) insulin pen 25 unit SUBCUT BID levothyroxine 25 mcg tablet 25 mcg PO DAILY metformin 1,000 mg tablet 1,000 mg PO BID FeroSul 325 mg (65 mg iron) tablet 325 mg PO DAILY levocetirizine 5 mg tablet 5 mg PO DAILY bumetanide 1 mg tablet 1 mg PO BID Qty: 60 0RF trazodone 150 mg Tablet 150 mg PO BEDTIME Changed pantoprazole 40 mg tablet,delayed release (DR/EC) 40 mg PO BIDWMEAL 30 Days Qty: 60 0RF Held lisinopril 5 mg tablet 5 mg PO DAILY@0800 Hold Instructions: Acute kidney injury. Hold for 72 hours. See Primary care doctor before resuming Discontinued omeprazole 20 mg capsule,delayed release(DR/EC) 20 mg PO DAILY Discharge Orders: Discharge Order (Routine); Ordered 02/19/22 Ordered By: Daksha العلي Referrals: Rachel Bills MD [Primary Care Provider] - 02/22/22 11:15 am Vipul Smith MD [Physician] - 02/28/22 2:00 pm () Andre Matute MD [Staff Physician] - 7-10 days (Dr. Matute office will call with appointment.) Discharge Diet: Cardiac and Diabetic Discharge Activity: Resume usual activity Patient Instructions: Anemia, Metoprolol (By mouth), Sucralfate (By mouth), Hydralazine (By mouth), Pneumonitis (DC), Opioid Safety Discharge Attestations Time Spent in Discharge Care*: greater than 30 min Quality Metrics Clinical Quality Measures [ No reported AMI, CVA or VTE this stay] Coding Level of Care Code Acute Chg FW DC note Diagnoses Altered mental status R41.82 Heart failure with preserved ejection fraction I50.30 Chronic respiratory failure with hypoxia J96.11 Hypochromic microcytic anemia D50.9 Anxiety and depression F41.9; F32.A GERD without esophagitis K21.9 Acquired hypothyroidism E03.9 Atrial fibrillation I48.91 Diabetic peripheral neuropathy associated with type 2 diabetes mellitus E11.42 HTN (hypertension) I10
[2022-02-19 10:55] LABS: Glucose Point of Care 228 mg/dL (70-110)
== END 2022-02-19 13:37 | disposition home or self-care (01) ==
LOC: ER 02-16 02:51 → MEDSURG 02-16 03:13
PROVIDERS: Admitting Provider Family Medicine; Emergency Provider Emergency Medicine; PCP Family Medicine; Visit Provider Internal Medicine
DX: R41.82 Altered mental status, unspecified (principal); I50.30 Unspecified diastolic (congestive) heart failure; J96.11 Chronic respiratory failure with hypoxia; D50.9 Iron deficiency anemia, unspecified; F41.9 Anxiety disorder, unspecified; F32.A Depression, unspecified; K21.9 Gastro-esophageal reflux disease without esophagitis; E03.9 Hypothyroidism, unspecified; I48.91 Unspecified atrial fibrillation; E11.42 Type 2 diabetes mellitus with diabetic polyneuropathy; I10 Essential (primary) hypertension; Z79.4 Long term (current) use of insulin; J44.9 Chronic obstructive pulmonary disease, unspecified; Z87.891 Personal history of nicotine dependence; D64.9 Anemia, unspecified; N17.9 Acute kidney failure, unspecified; I11.0 Hypertensive heart disease with heart failure; I50.9 Heart failure, unspecified; F17.210 Nicotine dependence, cigarettes, uncomplicated
CPT/HCPCS: 36415; 36416; 36430; 36600; 70450; 70496; 70498; 71045; 71260; 74177; 80048; 80053; 80306; 80307; 81001; 82274; 82803; 82962; 83540; 83550; 83690; 83880; 84145; 84443; 84484; 85007; 85025; 85027; 86140; 86850; 86900; 86920; 87040; 87635; 93005; 93308; 94664; 96372; 97116; 97161; 97165; 99285; C9113; G0378; J0456; J0696; J1756; J1815; J2405; J7030; J7050; P9016; Q9967

== ENCOUNTER 2022-02-27 13:36 | Oncology outpatient (recurring) (ONCR) | payer MEDICARE, SELFPAY ==
[2022-02-27 14:12] LABS: Basophils # 0.1 10^3/uL (0.0-0.1); Basophils % 0.7 %; Eosinophils # 0.2 10^3/uL (0.0-0.8); Eosinophils % 2.1 %; Hematocrit 31.4 % (42.0-52.0); Hemoglobin 9.3 g/dL (11.7-16.6); Lymphocytes # 1.8 10^3/uL (0.8-4.8); Mean Corpuscular HGB Conc 29.6 g/dL (30.0-36.0); Mean Corpuscular Hemoglobin 26.6 pg (28.0-34.0); Mean Corpuscular Volume 89.7 fl (80-94); Mean Platelet Volume 9.6 fL (7.4-10.4); Monocytes # 0.7 10^3/uL (0.2-0.9); Monocytes % 9.8 %; Neutrophils # 4.76 10^3/uL (1.8-7.7); Neutrophils % 63.1 %; Nucleated Red Blood Cells % 0 %; Platelet Count 221 10^3/cmm (130-400); Red Cell Distribution Width 15.9 % (12.1-15.1); White Blood Count 7.5 10^3/uL (4.0-10.0)
[2022-02-27 14:31] LABS: Anion Gap 10.6 (5-19); Blood Urea Nitrogen 15 mg/dL (8-23); Carbon Dioxide 34 mmol/L (22-29); Chloride 99 mmol/L (98-107); Glucose 174 mg/dL (65-115); Osmolality Calculated 295 mOsm/kg (285-295); Potassium 3.6 mmol/L (3.5-5.1); Sodium 140 mmol/L (136-145)
[2022-02-27 16:18] LABS: Ferritin 66 ng/mL (30-400); Iron 115 ug/dL (59-158); Percent Saturation 29.2 % (20-50); Total Iron Binding Capacity 393 mcg/dl; Unsaturated Iron Binding 278 ug/dL (112-347); Vitamin B12 426 pg/mL (232-1245)
== END 2022-03-02 23:59 | disposition home or self-care (01) ==
PROVIDERS: Internal Medicine; PCP Family Medicine; Visit Provider Internal Medicine Hematology & Oncology
DX: D50.9 Iron deficiency anemia, unspecified (principal); R53.1 Weakness; R53.83 Other fatigue; K52.9 Noninfective gastroenteritis and colitis, unspecified; Z86.010 Personal history of colon polyps; Z79.899 Other long term (current) drug therapy; F17.210 Nicotine dependence, cigarettes, uncomplicated
CPT/HCPCS: 36415; 80048; 82607; 82728; 83540; 83550; 85025; 99204

== ENCOUNTER 2022-03-01 07:53 | Outpatient (CLI) | payer MEDICARE, SELFPAY ==
--- NOTE | 2022-03-01 | ECG_ITS ---
[facility] Test Date: 2022-03-01 Pat Name: Juan Thomas Department: Room: Gender: Male Watch Parts Inspector: Simran Burnett : 1955 Requested By: Rohit Mas Order Number: [id number] Gaudencio MD: Rohit Mas M.D. Interpretive Statements NAME OF STUDY: LEXISCAN SESTAMIBI STRESS TEST INDICATION: Chest Pain PROCEDURE: At the baseline, the EKG revealed normal sinus rhythm with a poor R wave progression. Nonspecific IVCD. The baseline heart was 69 bpm with a blood pressue of 136/73 mm of Hg Lexiscan was infused over a period of 20 seconds. A total of 0.4 milligrams of Lexiscan was infused. The stress phase was continued for a total of 5 minutes. Heart rate at the end of the stress phase was 79 bpm with a blood pressure 130/65 mm of Hg. The EKG at the peak infusion revealed no significant changes. Sestamibi was injected 20 seconds after the Lexiscan infusion. Heart rate at the end of the recovery phase was 77 bpm with a blood pressure of 116/61 mm of Hg. CONCLUSION: 1. No significant EKG changes with the LexiScan infusion 2. No LexiScan induced chest pain or cardiac arrhythmia 3. Normal blood pressure and heart rate response 4. Sestamibi/sestamibi perfusion scan pending; see separate report. Electronically Signed On 03-03-2022 17:29:53 CDT by Rohit Mas M.D. [email or web address] Technologiesselect medical [facility].[employer]/store/OM/[id number]
[2022-03-01 07:57] VITALS: BMI 40.2
--- NOTE | 2022-03-01 07:58 | NMCV_ITS ---
NM orestes perf SPECT r/s* [id number] Juan Thomas Age: 66 Gender: M : 1955 Exam Date: 03/01/2022 09:10 Ordering Phys: Rohit Mas MD ([email or web address]) Technologist: DHAVAL Townsend Exam Location: [facility] Indications: SHORTNESS OF BREATH STRESS TEST Please see separate stress test [facility] for full findings IMAGE PROTOCOL Rest/Stress 1 Lexiscan Day Radiopharmaceutical Dose (mCi) Administration Site Administered by Rest: Tc-99m 11.0 IV DHAVAL Townsend Sestamibi Stress:Tc-99m 32.5 IV DHAVAL Townsend Sestamibi Rest: 01-Mar-2022 60 Discovery 630 Stress: 01-Mar-2022 30 Discovery 630 0.4mg Lexiscan. Supine position only as patient was unable to lay prone. SPECT RESULTS Technical Quality: Good Raw Data Analysis: Normal Image Corrections: No attenuation or motion correction applied Summed Stress Score: 6 Summed Rest Score: 3 Summed Difference Score: 4 PERFUSION FINDINGS Moderate areas of moderately decreased tracer uptake in the basal and mid inferior, mid inferolateral and apical lateral regions. Some reversibility was noted in the apical lateral, mid inferolateral and basal inferior regions. FUNCTIONAL RESULTS (calculated via Gated SPECT) Stress Image LV EF (%): 54 Stress EDV (mL):169 TID: 0.98 Stress ESV (mL):78 FUNCTIONAL FINDINGS: Segmental wall motion analysis revealing mild hypokinesia of the LV apex IMPRESSIONS 1. Myocardial perfusion imaging revealing moderate areas of decreased tracer uptake in the inferior, inferolateral and apical lateral regions with some reversibility in the inferolateral apical lateral and basal inferior regions, suggesting myocardial scarring with ischemia, mostly in the distribution of the left circumflex artery with some areas of ischemia in the distribution of the right coronary artery 2. Normal LV ejection fraction of 54%. 3. LV wall motion analysis revealed mild hypokinesia of the LV apex. 4. Mildly dilated LV cavity with an end-systolic volume of 78 mL Compared to the study from 01/21/2018, areas of ischemia appears to be new Dr Rohit Mas MD [facility] (Electronically Signed) Final Date: 02 March 2022 13:11 S
[2022-03-01] MEDS: regadenoson 0.4 Mg/5 ml Syringe IVP (09:51)
[2022-03-01 10:05] VITALS: BP 116/61; PULSE 77
== END 2022-03-01 07:54 | disposition home or self-care (01) ==
PROVIDERS: PCP Family Medicine; Visit Provider Internal Medicine Cardiovascular Disease
DX: I50.9 Heart failure, unspecified (principal)
CPT/HCPCS: 78452; 93017; A9500; J2785

== ENCOUNTER → 2022-03-06 12:16 | Outpatient (BNVA) | payer MEDICARE, SELFPAY | PROVIDERS: PCP Family Medicine; Visit Provider Internal Medicine Cardiovascular Disease | DX: I48.91 Unspecified atrial fibrillation (principal); I11.0 Hypertensive heart disease with heart failure; I50.30 Unspecified diastolic (congestive) heart failure; J96.11 Chronic respiratory failure with hypoxia; F17.210 Nicotine dependence, cigarettes, uncomplicated; D50.8 Other iron deficiency anemias; E11.69 Type 2 diabetes mellitus with other specified complication; Z79.4 Long term (current) use of insulin; D64.9 Anemia, unspecified | CPT/HCPCS: 36415; 80048; 82728; 83540; 83550; 83880; 85025; 99214 ==

== ENCOUNTER → 2022-03-08 15:01 | Outpatient (BNVA) | payer MEDICARE, SELFPAY | PROVIDERS: PCP Family Medicine; Visit Provider Surgery | DX: D50.9 Iron deficiency anemia, unspecified (principal) | CPT/HCPCS: 99213 ==

== ENCOUNTER → 2022-03-12 09:01 | Outpatient (BNVA) | payer MEDICARE, SELFPAY | PROVIDERS: PCP Family Medicine; Visit Provider Surgery | DX: D50.9 Iron deficiency anemia, unspecified (principal) | CPT/HCPCS: 99024 ==

== ENCOUNTER 2022-03-16 12:19 | Outpatient (CLI) | payer MEDICARE, SELFPAY ==
[2022-03-16 12:47] LABS: Basophils # 0.1 10^3/uL (0.0-0.1); Basophils % 0.7 %; Eosinophils # 0.2 10^3/uL (0.0-0.8); Hemoglobin 9.9 g/dL (11.7-16.6); Lymphocytes # 1.5 10^3/uL (0.8-4.8); Lymphocytes % 19.3 %; Mean Corpuscular HGB Conc 30.9 g/dL (30.0-36.0); Mean Corpuscular Hemoglobin 27.3 pg (28.0-34.0); Mean Corpuscular Volume 88.2 fl (80-94); Mean Platelet Volume 10.7 fL (7.4-10.4); Monocytes # 0.7 10^3/uL (0.2-0.9); Monocytes % 9.4 %; Neutrophils # 5.24 10^3/uL (1.8-7.7); Neutrophils % 68.2 %; Nucleated Red Blood Cells % 0 %; Platelet Count 176 10^3/cmm (130-400); Red Blood Count 3.63 10^6/uL (4.1-5.3); Red Cell Distribution Width 15.4 % (12.1-15.1); White Blood Count 7.7 10^3/uL (4.0-10.0)
== END 2022-03-16 12:20 | disposition home or self-care (01) ==
LOC: LAB 12:20
PROVIDERS: PCP Family Medicine; Visit Provider Family Medicine
DX: Z01.89 Encounter for other specified special examinations (principal)
CPT/HCPCS: 85025

== ENCOUNTER → 2022-03-28 11:36 | Outpatient (BNVA) | payer MEDICARE, SELFPAY | PROVIDERS: PCP Family Medicine; Visit Provider Surgery | DX: Z09 Encounter for follow-up examination after completed treatment for conditions other than malignant neoplasm (principal); D50.9 Iron deficiency anemia, unspecified | CPT/HCPCS: 99213 ==

== ENCOUNTER 2022-04-03 13:05 | Oncology outpatient (recurring) (ONCR) | payer MEDICARE, SELFPAY ==
[2022-04-03 13:42] LABS: Basophils # 0.1 10^3/uL (0.0-0.1); Basophils % 0.6 %; Eosinophils # 0.2 10^3/uL (0.0-0.8); Eosinophils % 2.1 %; Hematocrit 34.7 % (42.0-52.0); Hemoglobin 10.5 g/dL (11.7-16.6); Lymphocytes # 1.7 10^3/uL (0.8-4.8); Lymphocytes % 21.2 %; Mean Corpuscular HGB Conc 30.3 g/dL (30.0-36.0); Mean Corpuscular Hemoglobin 26.7 pg (28.0-34.0); Mean Corpuscular Volume 88.3 fl (80-94); Monocytes # 0.8 10^3/uL (0.2-0.9); Monocytes % 10.4 %; Neutrophils # 5.23 10^3/uL (1.8-7.7); Neutrophils % 65.3 %; Nucleated Red Blood Cells % 0 %; Platelet Count 198 10^3/cmm (130-400); Red Blood Count 3.93 10^6/uL (4.1-5.3); Red Cell Distribution Width 15.9 % (12.1-15.1)
[2022-04-03 14:02] LABS: Ferritin 46 ng/mL (30-400); Iron 95 ug/dL (59-158); Percent Saturation 26.4 % (20-50); Total Iron Binding Capacity 359 mcg/dl; Unsaturated Iron Binding 264 ug/dL (112-347)
== END 2022-05-02 23:59 | disposition home or self-care (01) ==
PROVIDERS: PCP Family Medicine; Visit Provider Internal Medicine Hematology & Oncology
DX: D50.9 Iron deficiency anemia, unspecified (principal); R53.1 Weakness; R53.83 Other fatigue; K52.9 Noninfective gastroenteritis and colitis, unspecified; Z86.010 Personal history of colon polyps; Z79.899 Other long term (current) drug therapy
CPT/HCPCS: 36415; 82728; 83540; 83550; 85025; 99214

== ENCOUNTER 2022-04-30 20:00 | Outpatient (CLI) | payer MEDICARE, SELFPAY | END 2022-04-30 20:01 | disposition home or self-care (01) | LOC: SLEEP 05-01 05:57 | PROVIDERS: PCP Family Medicine; Visit Provider Family Medicine | DX: G47.33 Obstructive sleep apnea (adult) (pediatric) (principal) | CPT/HCPCS: 95811 ==

== ENCOUNTER 2022-05-04 10:11 | Oncology outpatient (recurring) (ONCR) | payer MEDICARE, SELFPAY ==
[2022-05-04 10:33] LABS: Basophils # 0.1 10^3/uL (0.0-0.1); Basophils % 0.8 %; Eosinophils # 0.3 10^3/uL (0.0-0.8); Eosinophils % 3.3 %; Hematocrit 39.3 % (42.0-52.0); Hemoglobin 12.3 g/dL (11.7-16.6); Lymphocytes # 2.7 10^3/uL (0.8-4.8); Lymphocytes % 25.9 %; Mean Corpuscular HGB Conc 31.3 g/dL (30.0-36.0); Mean Corpuscular Hemoglobin 27.4 pg (28.0-34.0); Mean Corpuscular Volume 87.5 fl (80-94); Mean Platelet Volume 10.3 fL (7.4-10.4); Monocytes # 1.1 10^3/uL (0.2-0.9); Neutrophils # 6.03 10^3/uL (1.8-7.7); Neutrophils % 58.6 %; Nucleated Red Blood Cells % 0 %; Platelet Count 209 10^3/cmm (130-400); Red Blood Count 4.49 10^6/uL (4.1-5.3); Red Cell Distribution Width 15.6 % (12.1-15.1); White Blood Count 10.3 10^3/uL (4.0-10.0)
[2022-05-04 10:51] LABS: Ferritin 73 ng/mL (30-400); Iron 83 ug/dL (59-158); Total Iron Binding Capacity 377 mcg/dl; Unsaturated Iron Binding 294 ug/dL (112-347)
== END 2022-06-02 23:59 | disposition home or self-care (01) ==
LOC: ONCMED 10:12
PROVIDERS: PCP Family Medicine; Visit Provider Internal Medicine Hematology & Oncology
DX: D50.9 Iron deficiency anemia, unspecified (principal); R53.1 Weakness; R53.83 Other fatigue; K52.9 Noninfective gastroenteritis and colitis, unspecified; Z86.010 Personal history of colon polyps; Z79.899 Other long term (current) drug therapy; F17.210 Nicotine dependence, cigarettes, uncomplicated
CPT/HCPCS: 36415; 82728; 83540; 83550; 85025; 99214

== ENCOUNTER 2022-07-25 12:29 | Emergency (ER) | payer MEDICARE, SELFPAY ==
[2022-07-25] VITALS (7 sets, daily range): BP systolic 94–132; BP diastolic 58–70; PULSE 74–86; RESP 15–20; TEMP 37.2; O2SAT 94–98; BMI 42.3
--- NOTE | 2022-07-25 12:37 | ECG_ITS ---
[facility] Test Date: 2022-07-25 Pat Name: Juan Thomas Department: Room: Gender: Male Cable Tender: : 1955 Requested By: Clayton Gregory Order Number: [id number] Gaudencio MD: Bora Gómez M.D. Measurements Intervals [place] Rate: 83 P: 13 AK: 173 QRS: 7 QRSD: 100 T: 71 QT: 341 QTc: 401 Interpretive Statements SINUS RHYTHM Compared to ECG 02/16/2022 05:08:02 No significant changes Electronically Signed On 07-25-2022 17:27:46 [employer] by Bora Gómez M.D. [email or web address].Who Can Fix My Carwhitfield medical surgical hospitalIn [facility].[employer]/store/OM/[id number]
--- NOTE | 2022-07-25 12:38 | XR_ITS ---
WS: [id number] Exam: XR chest 1V portable [id number] Date/Time of Exam: 07/25/2022 12:38 PM Reason For Exam: dyspnea/cough Comparison 02/15/2022. The lungs are fully expanded and clear. Normal cardiomediastinal silhouette. No pleural effusions. [place] structures are intact. XR/XR chest 1V portable [id number] IMPRESSION: 1. No acute cardiopulmonary process.
--- NOTE | 2022-07-25 12:45 | W.ED.WEAKNES ---
HPI - Weakness General: Chief complaint: Weakness Stated complaint: GENERALIZED WEAKNESS Time Seen by Provider: 07/25/22 12:30 Source: patient Mode of arrival: ambulatory History of Present Illness: 67-year-old male presents emergency room with complaints of generally feeling weak this morning. Please get a pass out at times she denies any chest pain or abdominal pain no dysuria urgency or frequency nausea vomiting or diarrhea. No fever sweats or chills. He has a history of diabetes mellitus hypertension hypothyroidism. In addition to this he has a history of atrial fibrillation he is not on any anticoagulation because of previous GI bleeding. He has seen oncology for iron deficiency anemia. MD Complaint: generalized weakness Onset (ago): day(s) Duration: constant Location: generalized Relieving factors: none Exacerbating factors: none Associated symptoms: Denies chest pain, chills, confusion, melena, decreased appetite, diaphoresis, dysuria, easy bruising, fever(s), headache(s), myalgias, nausea, rash, short of breath, syncope or vomiting Review of Systems Const: Denies: fever(s), chills or diaphoresis ENMT: Denies: throat pain, ear or mastoid pain, nasal discharge or nasal congestion Card: Denies: chest pain or syncope Resp: Denies: dyspnea, productive cough or non-productive cough GI: Denies: nausea, vomiting or melena : Denies: dysuria Skin/Breast: Denies: rash or pruritus Neuro: Denies: headache(s) or confusion Keshav/Lymph: Denies: easy bruising PFSH ED PFSH: Medical History Brain aneurysm Diabetes Iron deficiency anemia Necrotizing fasciitis of shoulder region Surgical History H/O esophagogastroduodenoscopy (10/18/21) History of shoulder surgery Status post colonoscopy (10/18/21) Family History Grandfather Clotting disorder Family/Other CAD (coronary artery disease) Cancer Diabetes Stroke Grandmother CAD (coronary artery disease) Dementia Father Cancer Lung disease Mother Cancer Denies family history of Chronic kidney disease (CKD) Suicide Anesthesia complication Bleeding disorder Social History Smoking and tobacco status: current every day smoker (1 ppd, smoked x 50 years) cigarettes Packs smoked per day: 2 Years cigarettes smoked: 50 [ Other cigarette details: started at age 16] Alcohol intake: never Physical Exam Const: GENERAL APPEARANCE: cooperative and comfortable ORIENTATION/CONSCIOUSNESS: Yes awake, Yes oriented to person, Yes oriented to place and Yes oriented to time HENMT: COMMON NORMALS: normocephalic, atraumatic and hearing grossly normal bilaterally HEAD & SCALP: normocephalic and atraumatic Resp: COMMON NORMALS: normal respiratory effort, No retractions, No use of accessory muscles and clear to auscultation bilaterally AUSCULTATION: clear to auscultation bilaterally Cardio: COMMON NORMALS: regular rate, regular rhythm and No murmurs present (Cardio) RATE: regular rate RHYTHM: regular rhythm GI: COMMON NORMALS: Soft to palpation and No hepatosplenomegaly present AUSCULTATION: Yes normoactive bowel sounds PALPATION: Yes Soft to palpation, No Tenderness to palpation present (GI), No Guarding due to palpation present (GI) and Yes No hepatosplenomegaly present Extremity: COMMON NORMALS: normal to inspection, capillary refill normal, no clubbing, cyanosis or edema, no calf tenderness and no pedal edema Neuro: SENSORIUM/ORIENTATION: Yes oriented to person, Yes oriented to place and Yes oriented to time Skin: COMMON NORMALS: no rashes or lesions noted GENERAL SKIN EXAM: no rashes or lesions noted Course Vital Signs: Vital signs: Vital Signs Temperature 98.9 F 07/25/22 12:37 Pulse Rate 76 07/25/22 15:26 Respiratory Rate 15 07/25/22 14:48 Blood Pressure 125/60 07/25/22 15:26 Pulse Oximetry 94 07/25/22 15:26 Oxygen Delivery Me thod 07/25/22 14:48 Oxygen Flow Rate 3 07/25/22 14:00 MDM - Weakness Medical Decision Making Abs and imaging reviewed mild leukocytosis and mild acute kidney injury. His symptoms markedly improved with 1500 mL of fluid in the ER. He is feeling much better would like to go home. I think it is appropriate at this point recommend he continue his current medications and recheck with his primary care doctor within the week to reevaluate his kidney function. Medical Records I reviewed the patient's medical records. Lab Data I reviewed the patient's lab results. 07/25/22 12:50 07/25/22 12:50 Radiology Impressions Chest X-Ray 07/25/22 12:38 IMPRESSION: 1. No acute cardiopulmonary process. Laboratory Results WBC 14.1 10^3/uL (4.0-10.0) H 07/25/22 12:50 RBC 3.73 10^6/uL (4.1-5.3) L 07/25/22 12:50 Hgb 10.9 g/dL (11.7-16.6) L 07/25/22 12:50 Hct 33.6 % (42.0-52.0) L 07/25/22 12:50 MCV 90.1 fl (80-94) 07/25/22 12:50 MCH 29.2 pg (28.0-34.0) 07/25/22 12:50 MCHC 32.4 g/dL (30.0-36.0) 07/25/22 12:50 RDW 14.1 % (12.1-15.1) 07/25/22 12:50 Plt Count 218 10^3/cmm (130-400) 07/25/22 12:50 MPV 10.3 fL (7.4-10.4) 07/25/22 12:50 Neut % (Auto) 69.4 % 07/25/22 12:50 Lymph % (Auto) 20.1 % 07/25/22 12:50 [place] % (Auto) 7.2 % 07/25/22 12:50 Eos % (Auto) 2.1 % 07/25/22 12:50 Baso % (Auto) 0.6 % 07/25/22 12:50 Neut # (Auto) 9.80 10^3/uL (1.8-7.7) H 07/25/22 12:50 Lymph # (Auto) 2.8 10^3/uL (0.8-4.8) 07/25/22 12:50 [place] # (Auto) 1.0 10^3/uL (0.2-0.9) H 07/25/22 12:50 Eos # (Auto) 0.3 10^3/uL (0.0-0.8) 07/25/22 12:50 Baso # (Auto) 0.1 10^3/uL (0.0-0.1) 07/25/22 12:50 Nucleated RBC % (auto) 0 % 07/25/22 12:50 Nucleated RBCs # 0.0 /100WBC 07/25/22 12:50 Sodium 135 mmol/L (136-145) L 07/25/22 12:50 Potassium 4.8 mmol/L (3.5-5.1) 07/25/22 12:50 Chloride 95 mmol/L (98-107) L 07/25/22 12:50 Carbon Dioxide 26 mmol/L (22-29) 07/25/22 12:50 Anion Gap 18.8 (5-19) 07/25/22 12:50 BUN 35 mg/dL (8-23) H 07/25/22 12:50 Creatinine 2.0 mg/dL (0.7-1.2) H 07/25/22 12:50 GFR Calculation 33.5 mL/min (90-130) L 07/25/22 12:50 Glucose 195 mg/dL (65-115) H 07/25/22 12:50 Calculated Osmolality 293 mOsm/kg (285-295) 07/25/22 12:50 Calcium 8.9 mg/dL (8.5-10.5) 07/25/22 12:50 Total Bilirubin 0.3 mg/dL (0.15-1.2) 07/25/22 12:50 AST 23 U/L (0-40) 07/25/22 12:50 ALT 18 U/L (0-41) 07/25/22 12:50 Alkaline Phosphatase 118 U/L (40-130) 07/25/22 12:50 NT-Pro-B Natriuret Pep 162 pg/mL (0-125) H 07/25/22 12:50 Total Protein 7.1 g/dL (6.6-8.7) 07/25/22 12:50 Albumin 3.5 g/dL (3.5-5.2) 07/25/22 12:50 Globulin 3.6 g/dL (1.3-4.6) 07/25/22 12:50 Discharge Plan Discharge Patient Disposition: Home Clinical Impression: Acute kidney injury, Diabetes mellitus type 2, uncontrolled, with complications Condition: Stable Prescriptions: No Action potassium chloride 10 mEq tablet extended release 10 meq PO DAILY omeprazole 20 mg capsule,delayed release(DR/EC) 20 mg PO DAILY pantoprazole 40 mg tablet,delayed release (DR/EC) 40 mg PO DAILY sertraline 100 mg tablet 100 mg PO QAM clonazepam 1 mg tablet 0.5 mg PO BEDTIME PRN (Reason: Sleep) levothyroxine 50 mcg tablet 50 mcg PO QPM insulin aspart U-100 [Novolog FlexPen U-100 Insulin] 100 unit/mL (3 mL) insulin pen See Rx Instructions .ROUTE .COMPLEX Rx Instructions: sliding scale subcutaneously before meals lisinopril 5 mg tablet 5 mg PO DAILY@0800 Hold Instructions: Acute kidney injury. Hold for 72 hours. See Primary care doctor before resuming ipratropium-albuterol 0.5 mg-3 mg(2.5 mg base)/3 mL Solution For Nebulization 3 ml INHALATION Q6H PRN (Reason: Shortness Of Breath) tamsulosin 0.4 mg Capsule 0.4 mg PO DAILY@0900 gabapentin 300 mg Capsule 300 mg PO BID@08,20 Lantus Solostar U-100 Insulin 100 unit/mL (3 mL) insulin pen 25 unit SUBCUT BID levothyroxine 25 mcg tablet 25 mcg PO DAILY metformin 1,000 mg tablet 1,000 mg PO BID levocetirizine 5 mg tablet 5 mg PO DAILY bumetanide 1 mg tablet 1 mg PO BID Qty: 60 0RF FeroSul 325 mg (65 mg iron) tablet 325 mg PO BID trazodone 150 mg Tablet 150 mg PO BEDTIME Discharge Orders: Discharge ED (Routine); Ordered 07/25/22 Ordered By: Clayton Ricci Referrals: Rachel Bills MD [Primary Care Provider] - Discharge Diet: Usual diet Discharge Activity: Increase activity as tolerated Patient Instructions: Opioid Safety, Pain Management Activity Restrictions/Additional Instructions: You are seen today for generalized weakness. Kidney function is slightly worsened reflecting volume depletion (dehydration). With IV fluids given you have significant improvement we will discharge you home continue same medications recommend you follow-up with your doctor within the next week for repeat evaluation of your kidney function. Coding Level of Care Code ED Associate Professor [employer] for Josh Gallego
[2022-07-25 12:54] LABS: Basophils # 0.1 10^3/uL (0.0-0.1); Basophils % 0.6 %; Eosinophils # 0.3 10^3/uL (0.0-0.8); Eosinophils % 2.1 %; Hematocrit 33.6 % (42.0-52.0); Hemoglobin 10.9 g/dL (11.7-16.6); Lymphocytes # 2.8 10^3/uL (0.8-4.8); Lymphocytes % 20.1 %; Mean Corpuscular HGB Conc 32.4 g/dL (30.0-36.0); Mean Corpuscular Hemoglobin 29.2 pg (28.0-34.0); Mean Corpuscular Volume 90.1 fl (80-94); Mean Platelet Volume 10.3 fL (7.4-10.4); Monocytes % 7.2 %; Neutrophils % 69.4 %; Nucleated Red Blood Cells % 0 %; Platelet Count 218 10^3/cmm (130-400); Red Blood Count 3.73 10^6/uL (4.1-5.3); Red Cell Distribution Width 14.1 % (12.1-15.1); White Blood Count 14.1 10^3/uL (4.0-10.0)
[2022-07-25] MEDS: sodium chloride 0.9% 500 ML 999 ML IV (12:57)
[2022-07-25 13:17] LABS: Alanine Aminotransferase 18 U/L (0-41); Albumin Level 3.5 g/dL (3.5-5.2); Alkaline Phosphatase 118 U/L (40-130); Anion Gap 18.8 (5-19); Aspartate Amino Transferase 23 U/L (0-40); Blood Urea Nitrogen 35 mg/dL (8-23); Calcium 8.9 mg/dL (8.5-10.5); Carbon Dioxide 26 mmol/L (22-29); Chloride 95 mmol/L (98-107); Globulin 3.6 g/dL (1.3-4.6); Glomerular Filtration Rate 33.5 mL/min (90-130); Glucose 195 mg/dL (65-115); Osmolality Calculated 293 mOsm/kg (285-295); Potassium 4.8 mmol/L (3.5-5.1); Sodium 135 mmol/L (136-145); Total Bilirubin 0.3 mg/dL (0.15-1.2); Total Protein 7.1 g/dL (6.6-8.7)
[2022-07-25 14:22] LABS: NT Pro B Type Natriuretic Pept 162 pg/mL (0-125)
[2022-07-25] MEDS: sodium chloride 0.9% 500 ML IV (15:13)
== END 2022-07-25 16:53 | disposition home or self-care (01) ==
PROVIDERS: Emergency Provider Family Medicine; PCP Family Medicine
DX: N17.9 Acute kidney failure, unspecified (principal); E11.9 Type 2 diabetes mellitus without complications; Z79.4 Long term (current) use of insulin; Z79.84 Long term (current) use of oral hypoglycemic drugs; F17.210 Nicotine dependence, cigarettes, uncomplicated
CPT/HCPCS: 71045; 80053; 83880; 85025; 93005; 96360; 96361; 99285; J7040

== ENCOUNTER 2023-03-15 17:50 | Emergency (ER) | payer MEDICARE, SELFPAY ==
[2023-03-15 18:01] VITALS: BP 138/84; PULSE 83; RESP 17; TEMP 37; O2SAT 97; BMI 36.9
[2023-03-15 18:14] VITALS: BP 179/83; PULSE 80; RESP 18; O2SAT 93
[2023-03-15] MEDS: tetanus-diphtheria tox (adult) 0.5 mL SDV IM (18:47)
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
[2023-03-15 19:37] VITALS: BP 156/87; PULSE 83; RESP 18; O2SAT 94
[2023-03-19 16:14] LABS: Carboxyhemoglobin, Blood 6 %TOTAL HGB
== END 2023-03-15 19:30 | disposition home or self-care (01) ==
PROVIDERS: Emergency Provider Family Medicine; PCP Family Medicine
DX: T23.151A Burn of first degree of right palm, initial encounter (principal); T23.152A Burn of first degree of left palm, initial encounter; T20.04XA Burn of unspecified degree of nose (septum), initial encounter; W40.8XXA Explosion of other specified explosive materials, initial encounter; T59.811A Toxic effect of smoke, accidental (unintentional), initial encounter; Z79.4 Long term (current) use of insulin; Z79.84 Long term (current) use of oral hypoglycemic drugs; F17.210 Nicotine dependence, cigarettes, uncomplicated; E11.9 Type 2 diabetes mellitus without complications; Z23 Encounter for immunization
CPT/HCPCS: 36415; 82375; 90471; 90714; 99283

== ENCOUNTER 2023-12-15 18:32 | Inpatient (IN) | payer MEDICARE, SELFPAY ==
[2023-12-15] VITALS (9 sets, daily range): BP systolic 185–213; BP diastolic 75–106; PULSE 65–80; RESP 14–26; TEMP 36.9; O2SAT 93–99; BMI 44.9
--- NOTE | 2023-12-15 18:38 | ECG_ITS ---
[facility] Test Date: 2023-12-15 Pat Name: Juan Thomas Department: Room: Gender: Male Ball Winder: : 1955 Requested By: Chase Acosta Order Number: [id number] Ratliff MD: Bora Gómez M.D. Measurements Intervals [place] Rate: 66 P: 30 WI: 199 QRS: -6 QRSD: 124 T: 81 QT: 394 QTc: 415 Interpretive Statements SINUS RHYTHM MODERATE INTRAVENTRICULAR CONDUCTION DELAY [105+ ms QRS DURATION, 80+ ms Q/S IN V1/V2, NO Q AND 60+ ms R IN I/aVL/V5/V6] Compared to ECG 07/25/2022 12:42:05 Intraventricular conduction delay now present Electronically Signed On 12-16-2023 9:45:45 CDT by Bora Gómez M.D. [email or web address]
--- NOTE | 2023-12-15 18:52 | XRR_ITS ---
PROCEDURE INFORMATION: Exam: XR Chest Exam date and time: 12/15/2023 7:09 PM Age: 68 years old Clinical indication: Shortness of breath; Patient HX: SOB TECHNIQUE: Imaging protocol: Radiologic exam of the chest. Views: 1 view. COMPARISON: CR XR chest 1V portable [id number] 07/25/2022 1:24 PM FINDINGS: Lungs: Small airspace opacity in the peripheral left lung base. The right lung is clear. Pleural spaces: Unremarkable. No pleural effusion. No pneumothorax. Heart/Mediastinum: Unremarkable. No cardiomegaly. Diaphragm: Stable elevation of left diaphragm. Bones/joints: Unremarkable. XR/XR chest 1V portable [id number] IMPRESSION: Atelectasis versus pneumonia in the peripheral left base.
--- NOTE | 2023-12-15 18:56 | W.ED.SOB ---
HPI - SOB/Dyspnea General: Chief Complaint: Shortness of Breath/Dyspnea Stated Complaint: SOB Time Seen by Provider: 12/15/23 18:39 History of Present Illness: HPI Narrative: 68-year-old male with a history of diabetes COPD and atrial fibrillation. He is evidently not on anticoagulation because of a GI bleed history. He presents with generalized weakness and shortness of breath since this morning. He notes that he had some drainage yesterday. Drainage seems to increase today. He denies fever or chills. Denies increased swelling in his legs although he does have chronic swelling. He denies chest pain. Cough is productive of clear to green sputum. Associated symptoms: Deny abdominal pain, chest pain, dizziness, fever(s), nausea, palpitations or vomiting Review of Systems Const: Denies: fever(s), chills or body aches Eyes: Denies: change in vision Card: Denies: chest pain or palpitations GI: Denies: abdominal pain, nausea, vomiting, diarrhea or hematochezia Skin/Breast: Denies: rash Neuro: Denies: headache(s), weakness in extremities, dizziness or confusion PFSH ED PFSH: Medical History Iron deficiency anemia Brain aneurysm Necrotizing fasciitis of shoulder region Diabetes Surgical History Status post colonoscopy (10/18/21) H/O esophagogastroduodenoscopy (10/18/21) History of shoulder surgery Family History Grandfather Clotting disorder Family/Other CAD (coronary artery disease) Cancer Diabetes Stroke Grandmother CAD (coronary artery disease) Dementia Father Cancer Lung disease Mother Cancer Denies family history of Chronic kidney disease (CKD) Suicide Anesthesia complication Bleeding disorder Social History Smoking and tobacco/nicotine status: current every day tobacco/nicotine user (1 ppd, smoked x 50 years) cigarettes Packs smoked per day: 2 Years cigarettes smoked: 50 [ Other cigarette details: started at age 16] Alcohol intake: never Substance/Drug Use: never Physical Exam Const: GENERAL APPEARANCE: cooperative and ill appearing (mildly); not frail appearing HENMT: COMMON NORMALS: normocephalic, atraumatic and Normal external nose present HEAD & SCALP: normocephalic and atraumatic FACE & SINUS: normal facial exam and other (Left-sided chronic facial weakness) NOSE: Normal external nose present Eye: COMMON NORMALS: Equal, round and reactive pupils present and EOMs intact bilaterally PUPIL: Yes Equal, round and reactive pupils present Neck/C-Spine: GENERAL: Yes trachea midline Chest: CHEST: Yes Symmetrical chest wall rise Resp: EFFORT & INSPECTION: Yes tachypneic AUSCULTATION: wheezes and diminished lung sounds Cardio: COMMON NORMALS: regular rate and regular rhythm RATE: regular rate RHYTHM: regular rhythm GI: COMMON NORMALS: Normal to inspection, nondistended, normoactive bowel sounds present Extremity: COMMON NORMALS: no pedal edema Neuro: CONNOR COMA SCALE: document GCS findings Connor coma scale eye opening: Spontaneous [place] coma scale verbal response: Orientated [place] coma scale motor response: Obey commands [place] coma scale total score: 15 SENSORY EXAM: Yes extremities (intact) Psych: COMMON NORMALS: speech normal SPEECH: Yes normal speech Skin: COMMON NORMALS: no rashes or lesions noted GENERAL SKIN EXAM: no rashes or lesions noted Course Vital Signs: Vital signs: Vital Signs Temperature 98.4 F 12/15/23 18:41 Pulse Rate 68 12/15/23 19:12 Respiratory Rate 18 12/15/23 19:12 Blood Pressure 185/94 12/15/23 18:41 Pulse Oximetry 99 12/15/23 19:12 Oxygen Delivery Me thod Nasal Cannula 12/15/23 19:12 Oxygen Flow Rate 3 12/15/23 19:12 MDM - SOB/Dyspnea Medical Decision Making 68-year-old male here with weakness, and shortness of breath. Chest x-ray shows atelectasis versus less likely pneumonia in the left base. White blood cell count is 10. Hemoglobin is 8.7. He does have a history of blood loss anemia prior. His creatinine is 2.4, which is an increase from prior. BUN is elevated at 44. He is significantly hyperkalemic 7.8. EKG shows interventricular conduction delay with a QRS of 120 ms, normal axis, significantly peaked T waves, and no acute ST wave changes. His rate is 65. He is given insulin/dextrose, calcium, sodium bicarbonate, and albuterol for hyperkalemia. He will go to the ICU. Hospitalist is seeing the patient in the ER. Lab Data 12/15/23 20:06 12/15/23 20:06 Labs/Radiology: Radiology Impressions Chest X-Ray 12/15/23 18:52 IMPRESSION: Atelectasis versus pneumonia in the peripheral left base. Abdomen/Pelvis CT 12/15/23 21:17 IMPRESSION: 1. No acute findings. COMMENTS: Consistent with the [place]'s Incidental Findings Committee white paper (J Am Ivon Radiol 2017): For any incidental adrenal lesion greater than or equal to 1 cm but less than or equal to 4 cm classified in this report as benign, likely benign, or containing fat (including classification as an adenoma or myelolipoma), no follow-up imaging is recommended per consensus recommendations based on imaging criteria. Further lab evaluation could be pursued if warranted based on clinical findings. Laboratory Results WBC 10.10 10^3/uL (3.29-11.43) 12/15/23 20:06 RBC 3.06 10^6/uL (3.85-5.65) L 12/15/23 20:06 Hgb 8.70 g/dL (11.27-16.99) L 12/15/23 20:06 Hct 28.7 % (37-53) L 12/15/23 20:06 MCV 93.8 fl (82-101) 12/15/23 20:06 MCH 28.4 pg (27-33) 12/15/23 20:06 MCHC 30.3 g/dL (30-55) 12/15/23 20:06 RDW 13.8 % (12.1-15.1) 12/15/23 20:06 Plt Count 199 10^3/cmm (157-399) 12/15/23 20:06 MPV 10.1 fL (7.4-10.4) 12/15/23 20:06 Neut % (Auto) 75.2 % 12/15/23 20:06 Lymph % (Auto) 14.3 % 12/15/23 20:06 Burt % (Auto) 7.4 % 12/15/23 20:06 Eos % (Auto) 2.1 % 12/15/23 20:06 Baso % (Auto) 0.5 % 12/15/23 20:06 Neut # (Auto) 7.60 10^3/uL (1.8-7.7) 12/15/23 20:06 Lymph # (Auto) 1.4 10^3/uL (0.8-4.8) 12/15/23 20:06 Burt # (Auto) 0.8 10^3/uL (0.2-0.9) 12/15/23 20:06 Eos # (Auto) 0.2 10^3/uL (0.0-0.8) 12/15/23 20:06 Baso # (Auto) 0.1 10^3/uL (0.0-0.1) 12/15/23 20:06 Nucleated RBC % (auto) 0 % 12/15/23 20:06 Nucleated RBCs # 0.0 /100WBC 12/15/23 20:06 Specimen Type Arterial 12/15/23 19:25 Sample Site Radial, left 12/15/23 19:25 ABG pH 7.40 (7.35-7.45) 12/15/23 19:25 ABG pCO2 44.6 mmHg (35-45) 12/15/23 19:25 ABG pO2 88.8 mmHg (80.0-100.0) 12/15/23 19:25 ABG HCO3 27.5 mmol/L (22-26) H 12/15/23 19:25 ABG Base Excess 2.3 mmol/L (-2.0-2.0) H 12/15/23 19:25 Matthew Test Pos 12/15/23 19:25 Hematocrit 27.9 % (42-52) L 12/15/23 19:25 Hgb O2 Saturation 92.9 % (95-100) L 12/15/23 19:25 Carboxyhemoglobin 3.5 %THgb (0.4-20.1) 12/15/23 19:25 Methemoglobin 0.5 % (0.4-1.5) 12/15/23 19:25 Total Hemoglobin 9.1 g/dL (14-18) L 12/15/23 19:25 O2 Delivery Device Nc 12/15/23 19:25 O2 Liters/Min 3.0 % 12/15/23 19:25 Automat Watcher ID Cl 12/15/23 19:25 Sodium 133 mmol/L (136-145) L 12/15/23 20:06 Potassium 7.8 mmol/L (3.5-5.1) H* 12/15/23 20:06 Chloride 99 mmol/L (98-107) 12/15/23 20:06 Carbon Dioxide 27 mmol/L (22-29) 12/15/23 20:06 Anion Gap 14.8 (5-19) 12/15/23 20:06 BUN 44 mg/dL (8-23) H 12/15/23 20:06 Creatinine 2.4 mg/dL (0.7-1.2) H 12/15/23 20:06 GFR Calculation 27.1 mL/min (90-130) L 12/15/23 20:06 Glucose 182 mg/dL (65-115) H 12/15/23 20:06 Calculated Osmolality 292 mOsm/kg (285-295) 12/15/23 20:06 Lactic Acid 0.9 mmol/L (0.5-2.2) 12/15/23 20:06 Calcium 8.9 mg/dL (8.5-10.5) 12/15/23 20:06 Phosphorus 3.3 mg/dL (2.5-4.5) 12/15/23 20:06 Magnesium 2.4 mg/dL (1.7-2.3) H 12/15/23 20:06 Total Bilirubin 0.2 mg/dL (0.15-1.2) 12/15/23 20:06 AST 19 U/L (0-40) 12/15/23 20:06 ALT 12 U/L (0-41) 12/15/23 20:06 Alkaline Phosphatase 143 U/L (40-130) H 12/15/23 20:06 NT-Pro-B Natriuret Pep 3067 pg/mL (0-125) H 12/15/23 20:06 Total Protein 7.8 g/dL (6.6-8.7) 12/15/23 20:06 Albumin 3.8 g/dL (3.5-5.2) 12/15/23 20:06 Globulin 4.0 g/dL (1.3-4.6) 12/15/23 20:06 All radiology interpretation(s) finalized by discharge Critical Care Time Critical Care Time: Critical Care Time: Yes Total Critical Care Time: 35 Attestation: This case had a high probability of a clinically significant, sudden, or life threatening deterioration of this patient's condition which required my full and direct attention, intervention and personal management. Time is independent of any procedures performed Discharge Plan Discharge Patient Disposition: Admitted As Inpatient Clinical Impression: Acute hyperkalemia, Heart failure, Hypochromic microcytic anemia Condition: Serious Prescriptions: No Action potassium chloride 10 mEq tablet extended release 10 meq PO DAILY furosemide 40 mg tablet 40 mg PO lisinopril 20 mg tablet 20 mg PO metoprolol tartrate 50 mg tablet 50 mg PO pramipexole 0.125 mg tablet 0.25 mg PO DAILY metformin 500 mg tablet extended release 24 hr 500 mg PO omeprazole 20 mg capsule,delayed release(DR/EC) 20 mg PO DAILY sertraline 100 mg tablet 100 mg PO QAM clonazepam 1 mg tablet 0.5 mg PO BEDTIME PRN (Reason: Sleep) insulin aspart U-100 [Novolog FlexPen U-100 Insulin] 100 unit/mL (3 mL) insulin pen See Rx Instructions .ROUTE .COMPLEX Rx Instructions: sliding scale subcutaneously before meals ipratropium-albuterol 0.5 mg-3 mg(2.5 mg base)/3 mL Solution For Nebulization 3 ml INHALATION Q6H PRN (Reason: Shortness Of Breath) gabapentin 300 mg Capsule 300 mg PO BID@08,20 Lantus Solostar U-100 Insulin 100 unit/mL (3 mL) insulin pen 25 unit SUBCUT BID levothyroxine 25 mcg tablet 25 mcg PO DAILY levocetirizine 5 mg tablet 5 mg PO DAILY FeroSul 325 mg (65 mg iron) tablet 325 mg PO BID trazodone 150 mg Tablet 150 mg PO BEDTIME Silvadene 1 % cream 1 applic topical BID Qty: 50 0RF Rx Instructions: apply a 1.5 mm thickness Referrals: Rachel Bills MD [Primary Care Provider] - Coding Level of Care Code ED Head Filter Tank Tender Helper for Josh Gallego
[2023-12-15] MEDS: ipratropium-albuterol 3 mL Neb INHALATION (19:12)
[2023-12-15] MEDS: FUROsemide 10 mg/mL SDV 10mL 60 MG IVP (19:19)
[2023-12-15] MEDS: methylPREDNISolone sod succ 125 mg/2 mL INJ 80 MG IV (19:19)
[2023-12-15 19:35] LABS: ABG PCO2 44.6 mmHg (35-45); Arterial Blood Gas Hematocrit 27.9 % (42-52); Base Excess ABG 2.3 mmol/L (-2.0-2.0); Blood Gas Allen Test Pos; Blood Gas Operator Identificat CL; Blood Gas Sample Site Radial, left; Blood Gas Sample Type Arterial; Carboxyhemoglobin 3.5 %THgb (0.4-20.1); HCO3 ABG 27.5 mmol/L (22-26); HGB O2 Sat 92.9 % (95-100); Methemoglobin 0.5 % (0.4-1.5); Oxygen Device NC; PO2 ABG 88.8 mmHg (80.0-100.0); Total Hemoglobin 9.1 g/dL (14-18)
[2023-12-15 20:14] LABS: Basophils # 0.1 10^3/uL (0.0-0.1); Basophils % 0.5 %; Eosinophils # 0.2 10^3/uL (0.0-0.8); Eosinophils % 2.1 %; Hematocrit 28.7 % (37-53); Lymphocytes # 1.4 10^3/uL (0.8-4.8); Lymphocytes % 14.3 %; Mean Corpuscular HGB Conc 30.3 g/dL (30-55); Mean Corpuscular Hemoglobin 28.4 pg (27-33); Mean Corpuscular Volume 93.8 fl (82-101); Mean Platelet Volume 10.1 fL (7.4-10.4); Monocytes # 0.8 10^3/uL (0.2-0.9); Monocytes % 7.4 %; Neutrophils % 75.2 %; Nucleated Red Blood Cells % 0 %; Platelet Count 199 10^3/cmm (157-399); Red Blood Count 3.06 10^6/uL (3.85-5.65); Red Cell Distribution Width 13.8 % (12.1-15.1)
[2023-12-15 20:32] LABS: Alanine Aminotransferase 12 U/L (0-41); Albumin Level 3.8 g/dL (3.5-5.2); Alkaline Phosphatase 143 U/L (40-130); Anion Gap 14.8 (5-19); Aspartate Amino Transferase 19 U/L (0-40); Blood Urea Nitrogen 44 mg/dL (8-23); Calcium 8.9 mg/dL (8.5-10.5); Carbon Dioxide 27 mmol/L (22-29); Chloride 99 mmol/L (98-107); Creatinine Clr Calc Pharmacy 45.6785; Glomerular Filtration Rate 27.1 mL/min (90-130); Glucose 182 mg/dL (65-115); Lactic Sepsis W/Reflex 0.9 mmol/L (0.5-2.2); Osmolality Calculated 292 mOsm/kg (285-295); Sodium 133 mmol/L (136-145); Total Bilirubin 0.2 mg/dL (0.15-1.2); Total Protein 7.8 g/dL (6.6-8.7)
[2023-12-15 20:35] LABS: Potassium 7.8 mmol/L (3.5-5.1)
[2023-12-15] MEDS: cefTRIAXone 1,000 mg SDV 1000 MG IVP (20:46)
[2023-12-15 21:08] LABS: NT Pro B Type Natriuretic Pept 3067 pg/mL (0-125)
--- NOTE | 2023-12-15 21:17 | CTR_ITS ---
PROCEDURE INFORMATION: Exam: CT Abdomen And Pelvis Without Contrast Exam date and time: 12/15/2023 9:31 PM Age: 68 years old Clinical indication: Patient HX: Ty. Creat 2.4. ; Additional info: Acute renal failure. Obstruction? TECHNIQUE: Imaging protocol: Computed tomography of the abdomen and pelvis without contrast. Radiation optimization: All CT scans at this facility use at least one of these dose optimization techniques: automated exposure control; mA and/or kV adjustment per patient size (includes targeted exams where dose is matched to clinical indication); or iterative reconstruction. COMPARISON: CT chest abdpel w/*[id number] 02/16/2022 1:16 AM RADIATION DOSE METRICS: Total DLP (mGy-cm): 1376.67 FINDINGS: Lungs: Atelectasis and calcified granuloma in the left lower lobe. Liver: Normal. No mass. Gallbladder and biliary ducts: Normal. No calcified stones. No ductal dilation. Pancreas: Normal. No ductal dilation. Spleen: Normal. No splenomegaly. Adrenal glands: 1.7 cm right and 1.8 cm left adrenal nodules, Hounsfield units less than 10, consistent with a benign adenomas. No imaging follow-up recommended. Kidneys and ureters: Normal. No hydronephrosis. Stomach and bowel: Unremarkable. No obstruction. No mucosal thickening. Appendix: The appendix is visualized and is normal. Intraperitoneal space: Mild mesenteric fat stranding or scarring in the right lower quadrant, posterior and separate from the appendix. No pneumoperitoneum. No fluid collection. Vasculature: Moderate calcified arterial plaque. No aneurysm. Lymph nodes: Unremarkable. No enlarged lymph nodes. Urinary bladder: Unremarkable as visualized. Reproductive: Calcification in the central prostate. Bones/joints: Degenerative changes of the spine. No acute fracture. Soft tissues: Fat containing right inguinal and umbilical hernias. CT/CT kidney stone [id number] IMPRESSION: 1. No acute findings. COMMENTS: Consistent with the [place] [employer]'s Incidental Findings Committee white paper (J Am Ivon Radiol 2017): For any incidental adrenal lesion greater than or equal to 1 cm but less than or equal to 4 cm classified in this report as benign, likely benign, or containing fat (including classification as an adenoma or myelolipoma), no follow-up imaging is recommended per consensus recommendations based on imaging criteria. Further lab evaluation could be pursued if warranted based on clinical findings.
--- NOTE | 2023-12-15 21:23 | P.HP_ITS ---
Providers/Chief Complaint 2 Primary Care Provider: Rachel Bills MD Chief Complaint: SOB History of Present Illness Juan Thomas is a 68 year old male who present to the hospital with chief complaint of shortness of breath generalized weakness and malaise. In the ER he was diagnosed with MONCHO, hyperkalemia. He was given hyperkalemia cocktail. I have requested CT abdomen pelvis without contrast to rule out obstruction. Patient does not want Briceño catheter placement stating that he has been voiding every hour for last few days. He is compliant with his medications. Patient takes lisinopril, potassium supplementation along Lasix We are requesting ICU admission, repeat BMP to check potassium level at 10:30 PM Patient has active CHF signs with high BNP Cardiorenal MONCHO Patient stating that he probably needs to follow-up with nephrology but has not seen anyone his GFR is around 33 EKG showing hyperacute T waves, no QTc punctation or QT widening At baseline patient uses 3 to 4 L of oxygen, currently doing well on 3 L Review of Systems 2 Const: Denies: fever(s) Eyes: Denies: change in vision ENMT: Denies: throat pain Card: Reports: swelling of feet/ankles; Denies: chest pain Resp: Reports: dyspnea GI: Denies: abdominal pain : Denies: flank pain Medications/Allergies Home Medications Medication Instructions Recorded Confirmed Last Taken Type gabapentin 300 mg capsule 300 mg PO BID@08,20 06/19/21 03/15/23 10/17/21 History ipratropium 0.5 mg-albuterol 3 mg 3 ml inhalation Q6H PRN Shortness 06/19/21 03/15/23 10/17/21 History (2.5 mg base)/3 mL nebulization Of Breath soln clonazepam 1 mg tablet 0.5 mg PO BEDTIME PRN Sleep 08/07/21 03/15/23 10/17/21 History insulin aspart U-100 100 unit/mL See Rx Instructions .Route .COMPLEX 08/07/21 03/15/23 10/17/21 History (3 mL) subcutaneous pen (Novolog FlexPen U-100 Insulin aspart) sertraline 100 mg tablet 100 mg PO QAM 08/07/21 03/15/23 10/17/21 History trazodone 150 mg tablet 150 mg PO BEDTIME 09/10/21 03/15/2310/17/22 History insulin glargine 100 unit/mL (3 25 unit SUBCUT BID 11/07/21 03/15/23 Unknown History mL) subcutaneous pen (Lantus Solostar U-100 Insulin) potassium chloride 10 mEq 10 meq PO DAILY 11/07/21 03/15/23 Unknown History tablet,extended release levocetirizine 5 mg tablet 5 mg PO DAILY 02/16/22 03/15/23 Unknown History levothyroxine 25 mcg tablet 25 mcg PO DAILY 02/16/22 03/15/23 Unknown History ferrous sulfate 325 mg (65 mg 325 mg PO BID 03/06/22 03/15/23 Unknown History iron) tablet (FeroSul) omeprazole 20 mg capsule,delayed 20 mg PO DAILY 04/03/22 03/15/23 Unknown History release furosemide 40 mg tablet 40 mg PO 03/15/23 03/15/23 Unknown History lisinopril 20 mg tablet 20 mg PO 03/15/23 03/15/23 Unknown History metformin 500 mg tablet,extended 500 mg PO 03/15/23 03/15/23 Unknown History release 24 hr metoprolol tartrate 50 mg tablet 50 mg PO 03/15/23 03/15/23 Unknown History pramipexole 0.125 mg tablet 0.25 mg PO DAILY 03/15/23 03/15/23 Unknown History silver sulfadiazine 1 % topical 1 applic topical BID #50 grams 03/15/23 Unknown Rx cream (Silvadene) Allergies Allergy/AdvReac Type Severity Reaction Status Date / Time No Known Allergies Allergy Verified 03/15/23 17:11 PFSH Acute 2 PFSH: Medical History Iron deficiency anemia Brain aneurysm Necrotizing fasciitis of shoulder region Diabetes Surgical History Status post colonoscopy (10/18/21) H/O esophagogastroduodenoscopy (10/18/21) History of shoulder surgery Family History Grandfather Clotting disorder Family/Other CAD (coronary artery disease) Cancer Diabetes Stroke Grandmother CAD (coronary artery disease) Dementia Father Cancer Lung disease Mother Cancer Denies family history of Chronic kidney disease (CKD) Suicide Anesthesia complication Bleeding disorder Social History Smoking and tobacco/nicotine status: current every day tobacco/nicotine user (1 ppd, smoked x 50 years) cigarettes Packs smoked per day: 2 Years cigarettes smoked: 50 [ Other cigarette details: started at age 16] Alcohol intake: never Substance/Drug Use: never Vitals/I&O/Wt Last Vital Signs Temp 98.4 F 12/15/23 18:41 Pulse 68 12/15/23 19:12 Resp 18 12/15/23 19:12 BP 185/94 12/15/23 18:41 Pulse Ox 99 12/15/23 19:12 O2 Del Method Nasal Cannula 12/15/23 19:12 O2 Flow Rate 3 12/15/23 19:12 Weight last 48 hrs Weight 154.221 kg Physical Exam 2 Narrative: Signs of hyperkalemia Awake and alert GCS 15 Hemodynamic stable Hypertensive No active chest pain Pleasant cooperative Currently on 3 L and at the bedside Lower extremity edema S1, S2 variable with heart rate around 60s to 68 Data 12/15/23 20:06 12/15/23 20:06 A&P Assessment and plan (1) HTN (hypertension): (2) Heart failure with preserved ejection fraction: (3) Atrial fibrillation: (4) Diabetes mellitus type 2, uncontrolled, with complications: (5) GERD without esophagitis: (6) BPH (benign prostatic hyperplasia): (7) Pneumonia: (8) Shortness of breath: (9) Acute hyperkalemia: Plan Hyperkalemia Hyperacute T waves on EKG Patient has been given hyperkalemia cocktail Repeat BMP to check potassium at 10:30 PM Admit to ICU Discontinue lisinopril and potassium supplementation Acute diastolic CHF exacerbation Use IV diuresis Acute on chronic kidney disease Cardiorenal Patient does not want Briceño catheter placement Start IV diuresis Stop lisinopril, hold potassium supplementation I will reduce the dose of insulin Gabapentin has to be readjusted as well Chronic hypoxia required 3 L at baseline Community-acquired pneumonia continue antibiotics Afebrile Patient is endorsing patient endorsing productive cough Full code Cardiac consistent carb diet A-fib without RVR not a candidate of anticoagulation secondary to history of GI bleed DVT prophylaxis heparin Attestations 2 Medical Necessity Statement*: More than 2 midnights anticipated Diagnoses HTN (hypertension) I10 Heart failure with preserved ejection fraction I50.30 Atrial fibrillation I48.91 Diabetes mellitus type 2, uncontrolled, with complications GERD without esophagitis K21.9 BPH (benign prostatic hyperplasia) N40.0 Pneumonia J18.9 Shortness of breath R06.02 Acute hyperkalemia E87.5
[2023-12-15] MEDS: sodium bicarbonate 8.4% 1 mEq/mL 50mL Syr 50 MEQ IVP (21:46)
[2023-12-15] MEDS: calcium gluconate 0.1 gm/mL 10% SDV 10mL 1 GM IVP (21:47)
[2023-12-15] MEDS: dextrose 10% 250 ML 1000 ML IV ×2 (22:01→22:24)
[2023-12-15 22:07] LABS: Magnesium 2.4 mg/dL (1.7-2.3); Phosphorus 3.3 mg/dL (2.5-4.5)
[2023-12-15] MEDS: insulin regular-human 100 units/1 mL 10 UNIT IVP (22:09)
[2023-12-15] MEDS: azithromycin 500 MG in sodium chloride 0.9% 250 ML 250 MG IV (22:46)
[2023-12-15] MEDS: sodium polystyrene sulfonate 15 gm/60 mL Btl PO (22:50)
[2023-12-15] MEDS: heparin 5,000 unit/mL INJ 1 mL 5000 UNIT SUBCUT (22:51)
[2023-12-15 23:13] LABS: Adenovirus Not Detected (NOT DETECT); Chlamydia Pneumoniae Not Detected (NOT DETECT); Coronavirus 229E,HKU1,NL63,OC4 Not Detected (NOT DETECT); Human Metapneumovirus Not Detected (NOT DETECT); Human Rhinovirus/Enterovirus Not Detected (NOT DETECT); Influenza A Not Detected (NOT DETECT); Influenza A H1 Not Detected (NOT DETECT); Influenza A H1-2009 Not Detected (NOT DETECT); Influenza A H3 Not Detected (NOT DETECT); Influenza B Not Detected (NOT DETECT); Mycoplasma Pneumoniae Not Detected (NOT DETECT); Parainfluenza Virus Type 1 Not Detected (NOT DETECT); Parainfluenza Virus Type 2 Not Detected (NOT DETECT); Parainfluenza Virus Type 3 Not Detected (NOT DETECT); Parainfluenza Virus Type 4 Not Detected (NOT DETECT); Respiratory Syncytial Virus A Not Detected (NOT DETECT); Respiratory Syncytial Virus B Not Detected (NOT DETECT); SARS-COV-2 Not Detected (NOT DETECT)
[2023-12-15] MEDS: hyDRALAzine 20 mg/mL INJ 1 mL IVP (23:32)
[2023-12-16] VITALS (147 sets, daily range): BP systolic 116–220; BP diastolic 52–120; PULSE 63–105; RESP 11–32; TEMP 36.7–37; O2SAT 89–97; BMI 46.6
--- NOTE | 2023-12-16 00:05 | PC.NURSE ---
PT ACCIDENTALLY PULLED IV OUT. IV INTACT. WILL REPLACE BEFORE TRANSFER TO ICU.
--- NOTE | 2023-12-16 00:39 | PC.NURSE ---
PT PLACED IN RECLINER DUE TO UNBEARABLE PAIN IN ER BED. PT FEELS MORE COMFORTABLE NOW.
[2023-12-16] MEDS: nitroglycerin 1 gm/inch oint Pkt 2 INCH TOPICAL ×4 (01:23→20:30)
--- NOTE | 2023-12-16 03:24 | P.PNCC_ITS ---
Critical Care Event Note There was quite a delay in moving patient from ER to ICU. Orders were held in transfer. Particularly the repeat BMP at 11 PM and message to nurse was not seen by anyone. Around 2 AM I ordered a stat BMP. It is finally getting drawn at 3.25 AM. Patient still having peaked T waves. Blood pressure 243 systolic. Will start Cardene drip at this time. Around 1 AM patient was placed on Nitro- Bid. I was not informed regarding hypertension up until a few moments ago. I have ordered a stat EKG, BMP and ordered a Cardene drip with instructions not to lower blood pressure past 170 systolic. If patient still hyperkalemic we will repeat insulin dextrose, calcium gluconate, Kayexalate. Upon reviewing labs, may consider nephrology consult for potential need of dialysis. Discussed with RN in detail. Patient asymptomatic at this time The high probability of a clinically significant, sudden or life threatening deterioration of the patient's [cardiovascular, renal] system(s) required my full and direct attention, intervention and personal management. The critical care time is as shown. This time is in addition to time spent performing any reported procedures but includes the following: [x] Data and vital sign review and interpretation [x] Patient assessment, examination and intervention [x] Documentation [x] Medication orders and management Critical Care Time Code activated: No Critical Care Time (min): 15 Coding Level of Care Code Acute Code for Chg Julián
--- NOTE | 2023-12-16 03:25 | ECG_ITS ---
[facility] Test Date: 2023-12-16 Pat Name: Juan Thomas Department: Room: ICU10 Gender: Male Quad Stayer: : 1955 Requested By: Daksha العلي Order Number: [id number] Gaudencio MD: Bora Gómez M.D. Measurements Intervals [place] Rate: 85 P: 34 ID: [id number] QRS: 107 QRSD: 123 T: -6 QT: 375 QTc: 448 Interpretive Statements SINUS RHYTHM RIGHT AXIS DEVIATION [QRS AXIS > 100] POSSIBLE RIGHT VENTRICULAR CONDUCTION DELAY [RSR (QR) IN V1/V2] SEPTAL MYOCARDIAL INFARCTION , OF INDETERMINATE AGE [40+ ms Q WAVE IN V1/V2] Compared to ECG 12/15/2023 18:38:08 Right-axis deviation now present Myocardial infarct finding now present Intraventricular conduction delay no longer present Electronically Signed On 12-16-2023 9:44:59 CDT by Bora Gómez M.D. [id number]
[2023-12-16] MEDS: nicardipine 20 MG/200 ML PREMIX 50 MG IV (03:35)
[2023-12-16 04:12] LABS: Anion Gap 19.3 (5-19); Blood Urea Nitrogen 46 mg/dL (8-23); Carbon Dioxide 22 mmol/L (22-29); Chloride 95 mmol/L (98-107); Creatinine Clr Calc Pharmacy 46.7218; Glomerular Filtration Rate 27.1 mL/min (90-130); Glucose 390 mg/dL (65-115); Osmolality Calculated 296 mOsm/kg (285-295); Sodium 129 mmol/L (136-145)
[2023-12-16 04:13] LABS: Potassium 7.3 mmol/L (3.5-5.1)
[2023-12-16 04:18] LABS: Basophils % 0.1 %; Hematocrit 28.4 % (37-53); Lymphocytes # 0.4 10^3/uL (0.8-4.8); Lymphocytes % 5.3 %; Mean Corpuscular Hemoglobin 28.6 pg (27-33); Mean Corpuscular Volume 92.2 fl (82-101); Mean Platelet Volume 10.5 fL (7.4-10.4); Monocytes # 0.1 10^3/uL (0.2-0.9); Monocytes % 0.6 %; Neutrophils # 7.74 10^3/uL (1.8-7.7); Neutrophils % 93.5 %; Nucleated Red Blood Cells % 0 %; Platelet Count 182 10^3/cmm (157-399); Red Blood Count 3.08 10^6/uL (3.85-5.65); Red Cell Distribution Width 13.6 % (12.1-15.1); White Blood Count 8.28 10^3/uL (3.29-11.43)
[2023-12-16] MEDS: sodium polystyrene sulfonate 15 gm/60 mL Btl PO (04:24)
[2023-12-16 04:40] LABS: Troponin(5th) Baseline 99 ng/L (0-15)
[2023-12-16 04:42] LABS: Magnesium 2.2 mg/dL (1.7-2.3); Phosphorus 2.9 mg/dL (2.5-4.5)
[2023-12-16] MEDS: calcium gluconate 0.1 gm/mL 10% SDV 10mL 1 GM IVP (05:04)
[2023-12-16] MEDS: insulin regular-human 10 UNIT in SYRINGE 1 EACH IVP (05:10)
[2023-12-16] MEDS: sodium bicarbonate 150 MEQ in dextrose 5% 1,000 ML 100 MEQ IV (05:24)
[2023-12-16 05:44] LABS: Glucose Point of Care 439 mg/dL (70-110)
[2023-12-16] MEDS: INSULIN REGULAR IN 0.9 % NACL 100 UNIT/100 ML BAG 15 UNIT IV (05:46)
--- NOTE | 2023-12-16 05:52 | PC.NURSE ---
Insulin drip Dr. العلي contacted and order received for the new insulin drip protocol and to discontinue the older insulin drip protocol.
--- NOTE | 2023-12-16 06:04 | ECG_ITS ---
[facility] Test Date: 2023-12-16 Pat Name: Juan Thomas Department: Room: ICU10 Gender: Male Library Services Dean: : 1955 Requested By: Daksha العلي Order Number: [id number] Gaudencio MD: Bora Gómez M.D. Measurements Intervals [place] Rate: 85 P: 67 FL: 148 QRS: 49 QRSD: 107 T: 1 QT: 364 QTc: 435 Interpretive Statements SINUS RHYTHM MODERATE ST DEPRESSION [0.05+ mV ST DEPRESSION] Compared to ECG 12/16/2023 03:49:28 ST (T wave) deviation now present Right-axis deviation no longer present Myocardial infarct finding no longer present Electronically Signed On 12-16-2023 9:46:50 CDT by Bora Gómez M.D. [id number]
[2023-12-16 06:38] LABS: Glucose Point of Care 396 mg/dL (70-110)
--- NOTE | 2023-12-16 06:44 | P.CONIM_ITS ---
Providers/Reason For Consult 2 Consulting Physician/Specialty*: bernie perdomo md/ telenephrology Reason for Consult*: shaji, hyperkalemia Requesting Physician: Dr Marshal العلي Attending Physician: Daksha العلي MD Primary Care Provider: Rachel Bills MD History of Present Illness History of Present Illness Juan Thomas is a 68 year old male With history of right shoulder and arm necrotizing fasciitis in 2021. Patient has history of diabetes with severe restless leg syndrome. Patient has history of hypertension obesity depression sleep apnea. The patient takes significant amount of Advil he tells me up to 16 a day for the last few months for his restless leg syndrome. The patient is here with weakness and lethargy and shortness of breath and was found to have acute kidney injury however looking at old labs his creatinine was 2 it is now 2.4 mg/dL. The patient was also found to have hyperkalemia. Renal is asked to see the patient for further consultation. Patient states that he is short of breath patient a Briceño placed with urine output. Patient remains short of breath. Patient has dyspnea on exertion and orthopnea. Patient was also started on antibiotics and Bumex by the house doctor. Review of Systems 2 Narrative: Week, shortness of breath, orthopnea, dyspnea, urinary frequency wakes up a few times a night and has to urinate almost every hour during the day. No nausea no vomiting no chest pain no headaches no diarrhea no constipation positive leg swelling. Medications/Allergies Home Medications Medication Instructions Recorded Confirmed Last Taken Type gabapentin 300 mg capsule 300 mg PO BID@08,20 06/19/21 03/15/23 10/17/21 History ipratropium 0.5 mg-albuterol 3 mg 3 ml inhalation Q6H PRN Shortness 06/19/21 03/15/23 10/17/21 History (2.5 mg base)/3 mL nebulization Of Breath soln clonazepam 1 mg tablet 0.5 mg PO BEDTIME PRN Sleep 08/07/21 03/15/23 10/17/21 History insulin aspart U-100 100 unit/mL See Rx Instructions .Route .COMPLEX 08/07/21 03/15/23 10/17/21 History (3 mL) subcutaneous pen (Novolog FlexPen U-100 Insulin aspart) sertraline 100 mg tablet 100 mg PO QAM 08/07/21 03/15/23 10/17/21 History trazodone 150 mg tablet 150 mg PO BEDTIME 09/10/21 03/15/23 10/17/21 History insulin glargine 100 unit/mL (3 25 unit SUBCUT BID 11/07/21 03/15/23 Unknown History mL) subcutaneous pen (Lantus Solostar U-100 Insulin) potassium chloride 10 mEq 10 meq PO DAILY 11/07/21 03/15/23 Unknown History tablet,extended release levocetirizine 5 mg tablet 5 mg PO DAILY 02/16/22 03/15/23 Unknown History levothyroxine 25 mcg tablet 25 mcg PO DAILY 02/16/22 03/15/23 Unknown History ferrous sulfate 325 mg (65 mg 325 mg PO BID 03/06/22 03/15/23 Unknown History iron) tablet (FeroSul) omeprazole 20 mg capsule,delayed 20 mg PO DAILY 04/03/22 03/15/23 Unknown History release furosemide 40 mg tablet 40 mg PO 03/15/23 03/15/23 Unknown History lisinopril 20 mg tablet 20 mg PO 03/15/23 03/15/23 Unknown History metformin 500 mg tablet,extended 500 mg PO 03/15/23 03/15/23 Unknown History release 24 hr metoprolol tartrate 50 mg tablet 50 mg PO 03/15/23 03/15/23 Unknown History pramipexole 0.125 mg tablet 0.25 mg PO DAILY 03/15/23 03/15/23 Unknown History silver sulfadiazine 1 % topical 1 applic topical BID #50 grams 03/15/23 Unknown Rx cream (Silvadene) Allergies Allergy/AdvReac Type Severity Reaction Status Date / Time No Known Allergies Allergy Verified 03/15/23 17:11 Current Medications Generic Name Dose Route Start Last Admin Trade Name Freq PRN Reason Stop Dose Admin Heparin Sodium (Porcine) 5,000 unit 12/15/23 21:30 12/15/23 22:51 Heparin 5,000 Unit/Ml Inj 1 Ml SUBCUT 5,000 unit Q12H ARMANDO Administration Nicardipine/Sodium Chloride 20 mg in 200 mls @ 0 mls/hr 12/16/23 03:30 12/16/23 04:08 Cardene IV 7.5 mg/hr .Q0M ARMANDO 75 mls/hr Titration Protocol Per Protocol Sodium Bicarbonate 150 meq/ 1,150 mls @ 100 mls/hr 12/16/23 04:30 12/16/23 05:24 Dextrose IV 100 mls/hr .[id number] ARMANDO Administration Insulin Human Regular 100 unit in 100 mls @ 0 mls/hr 12/16/23 05:45 12/16/23 06:37 Myxredlin 100 Unit/100 Ml Bag IV 16.5 unit/hr PROTOCOL ARMANDO 16.5 mls/hr Titration Protocol Per Protocol Nitroglycerin 2 inch 12/16/23 01:15 12/16/23 01:23 Nitroglycerin 1 Gm/Inch Oint Pkt TOPICAL 2 inch Q6H ARMANDO Administration PFSH Acute 2 PFSH: Medical History Iron deficiency anemia Brain aneurysm Necrotizing fasciitis of shoulder region Diabetes Surgical History Status post colonoscopy (10/18/21) H/O esophagogastroduodenoscopy (10/18/21) History of shoulder surgery Family History Grandfather Clotting disorder Family/Other CAD (coronary artery disease) Cancer Diabetes Stroke Grandmother CAD (coronary artery disease) Dementia Father Cancer Lung disease Mother Cancer Denies family history of Chronic kidney disease (CKD) Suicide Anesthesia complication Bleeding disorder Social History Smoking and tobacco/nicotine status: current every day tobacco/nicotine user (1 ppd, smoked x 50 years) cigarettes Packs smoked per day: 2 Years cigarettes smoked: 50 [ Other cigarette details: started at age 16] Alcohol intake: never Substance/Drug Use: never Vitals/I&O/Wt Last Vital Signs Temp 98.4 F 12/15/23 18:41 Pulse 96 12/16/23 05:13 Resp 25 H 12/16/23 01:30 BP 215/97 12/16/23 01:30 Pulse Ox 93 12/16/23 05:13 O2 Del Method Nasal Cannula 12/16/23 02:06 O2 Flow Rate 3 12/15/23 23:30 FiO2 32 12/16/23 05:13 12/15/23 12/15/23 12/16/23 14:59 22:59 06:59 Intake Total 500 / 500 290.25 / 790.25 Output Total 925 / 925 Balance 500 / 500 -634.75 / -134.75 Weight last 48 hrs Weight 160.481 kg Weight 154.221 kg Physical Exam 2 Narrative: Obese man sitting up using BiPAP. Vital signs noted blood pressure elevated. HEENT normocephalic atraumatic. Neck is supple Lungs dull bases rhonchi and crackles. Heart regular positive S1-S2. Abdomen soft positive bowel sounds. Extremities 1+ edema. Patient has a Briceño catheter. Neuro awake alert oriented x 3. Urinary Catheter Management: Briceño: Cath Placed During This Visit: yes Reason for Continuing Indwelling Catheter: Accurate Measurement of Urinary Output in Critically Ill Patients Urinary Catheter Date of Insertion: 12/16/23 Urinary Catheter Time of Insertion: 05:04 Data 12/16/23 03:41 12/16/23 03:41 Micro: Microbiology 12/15/23 22:30 Blood Culture - Preliminary Blood SPECIMEN COLLECTED 12/15/23 22:30 Blood Culture - Preliminary Blood SPECIMEN COLLECTED A&P Assessment and plan (1) Acute hyperkalemia: 68-year-old gentleman with heart failure preserved EF, GI bleed, home O2 dependent, diabetes, sleep apnea, obesity. The patient is here with weakness and shortness of breath. 1. Acute kidney injury -his labs were reviewed. His creatinine was 1.1 mg to 1.2 mg/dL in 2021. Creatinine of 2 in 2022, and his creatinine is now 2.4 mg/dL. Imaging reviewed without hydronephrosis. Risk for renal dysfunction in this patient can be from interstitial nephritis the patient takes 16 NSAIDs a day. Also risk for diabetic hypertensive disease. Agree with stopping ADRIANA in addition. Will send urine studies. Also protein creatinine and albumin and electrolytes. Will give the patient Bumex at this time to try to help with the diuresis. 2. Severe hypertension: To be concerned about a hypertensive TMA he is anemic however does not have significant thrombocytopenia. Will try to treat his blood pressure without using a send admission. Patient is on a Cardene drip. Will add amlodipine, can add a beta-rustam. No ADRIANA inhibitor's or ARB with severe hyperkalemia and acute kidney injury. 3. Hyponatremia somewhat corrects given his hyperglycemia. 4. Hyperkalemia from acute kidney injury using a [facility] [place] and potassium supplements. Stop ADRIANA intervention and potassium supplements monitor chemistries every 4 hours. Monitor with Bumex. 5. Anemia send iron studies also send electrophoresis and immunofixation given renal insufficiency and acute kidney injury. 6. Patient has an anion gap metabolic acidosis of approximately 12 however he is well compensated. Patient likely has hypercapnic respiratory acidosis at baseline however now is hyperventilating. Check thyroid function. Diabetic control. Consider repeat echo. Will follow the patient closely along with you. The patient was seen and examined using A/V equipment and a nurse at the telehealth visit. The patient consents to telehealth and to hemodialysis if necessary. Plan See above Consult Attestations 2 Medical Necessity Statement: Acute kidney injury hyperkalemia EKG changes heart failure preserved EF hypertensive urgency. And anemia Time Spent in Patient Care: Greater than 35 minutes (>than 50% of time spent in counselling and/or direct pt care on unit) . Critical Care Time: The high probability of a clinically significant, sudden or life threatening deterioration of the patient's [] system(s) required my full and direct attention, intervention and personal management. The critical care time is as shown. This time is in addition to time spent performing any reported procedures but includes the following: [x] Data and vital sign review and interpretation [x] Patient assessment, examination and intervention [x] Documentation [x] Medication orders and management Critical Care Time (min): 45 Coding Level of Care Code Acute Code for g Fwd Diagnoses Acute hyperkalemia E87.5
[2023-12-16] MEDS: nicardipine 20 MG/200 ML PREMIX 75 MG IV ×7 (06:54→22:20)
--- NOTE | 2023-12-16 07:02 | USCV_ITS ---
Juan Thomas Age: 68 Gender: M : 1955 Exam Date: 12/16/2023 09:34 Ordering Phys: Pb Camacho MD Technologist: CT Exam Location: [facility] [place] Indication: chf BP: 116 / 85 HR: 84 Rhythm: Sinus Technical Quality: Adequate MEASUREMENTS (Male / Female) Normal Values 2D ECHO LVOT Diameter 2.2 cm LV Ejection Fraction MOD 4C 65.4 % LV Ejection Fraction MOD 2C 55.5 % LV Ejection Fraction 2C AL 55.3 % LA Diameter 5.0 cm RA Systolic Volume 4C AL 66.3 ml RA Systolic Volume 4C MOD 63.8 ml LA Sys Volume AL 95.1 cm cubed LA Sys Volume Index AL 32.1 cm cubed/m squared Aorta at Sinotubular Diameter 3.1 cm M-MODE LA Ao Ratio MM 1.8 AV Cusp Separation MM 2.6 cm DOPPLER AV Peak Velocity 161.0 cm/s LVOT Peak Velocity 152.0 cm/s AV Area Cont Eq vti 4.1 cm squared AV Area Cont Eq pk 3.7 cm squared MV Peak Velocity 117.0 cm/s MV Area PHT 4.0 cm squared Mitral E to A Ratio 1.2 TR Peak Velocity 172.0 cm/s TR Peak Gradient 11.8 mmHg TV Peak E Velocity 75.0 cm/s Right Atrial Pressure 3.0 mmHg Pulmonary Artery Systolic Pressu 14.8 mmHg PV Peak Velocity 150.8 cm/s FINDINGS Left Ventricle Normal left ventricular size and systolic function, EF 65%. No regional wall motion abnormalities. Mild left ventricular hypertrophy. Grade III/IV diastolic dysfunction (restrictive filling pattern), severely elevated filling pressures. Right Ventricle Normal right ventricular size and systolic function Right Atrium Normal right atrial size. Left Atrium The left atrium is normal in size. Mitral Valve No gross abnormalities noted Aortic Valve No gross abnormalities noted Tricuspid Valve Trace tricuspid valve regurgitation. Pulmonic Valve Pulmonic valve not well visualized. Pericardium Normal pericardium without effusion. Aorta Normal aortic annulus size. IVC Inferior vena cava not visualized. CONCLUSIONS Normal left ventricular size and systolic function, EF 65%. No regional wall motion abnormalities. Mild left ventricular hypertrophy. Grade III/IV diastolic dysfunction (restrictive filling pattern), severely elevated filling pressures. Trace tricuspid valve regurgitation. Estimated pulmonary artery peak systolic pressure, possibly within normal limits There is no pericardial effusion. There are no intracardiac masses. Dr Rohit Mas MD FACC (Electronically Signed) Final Date: 17 December 2023 08:21 S
[2023-12-16 07:55] LABS: Troponin 5 2HR 84.86 ng/L (0-15)
[2023-12-16 07:57] LABS: Uric Acid 9.5 mg/dL (3.4-7.0)
[2023-12-16 08:02] LABS: Hepatitis C Virus Antibody Non-Reactive (Nonreactive); Thyroid Stimulating Hormone 0.51 uIU/mL (0.27-4.20)
[2023-12-16 08:03] LABS: Troponin 5 2HR Delta -14.14 ABS# (0-10)
[2023-12-16 08:09] LABS: Blood Urea Nitrogen 49 mg/dL (8-23); Carbon Dioxide 18 mmol/L (22-29); Chloride 96 mmol/L (98-107); Glomerular Filtration Rate 25.8 mL/min (90-130); Glucose 311 mg/dL (65-115); Osmolality Calculated 295 mOsm/kg (285-295); Sodium 130 mmol/L (136-145)
[2023-12-16 08:10] LABS: Anion Gap 22.4 (5-19); Potassium 6.4 mmol/L (3.5-5.1)
[2023-12-16 08:13] LABS: Complement C3 153 mg/dL (90-180); Creatine Phosphokinase 152 U/L (39-308)
[2023-12-16 08:20] LABS: Glucose Point of Care 331 mg/dL (70-110)
--- NOTE | 2023-12-16 08:50 | P.PN_ITS ---
Subjective 2 Subjective: Has not physical reviewed. Patient without complaints this morning. I reviewed the business transformation consultant's note as well. He reports he feels little swollen, but it is better than it has been in the last week. Feels like his shortness of breath is improved. Denies any chest discomfort. Medications: Reviewed: Yes Vitals/I&O/Wt Last Vital Signs Temp 98.4 F 12/15/23 18:41 Pulse 96 12/16/23 05:13 Resp 25 H 12/16/23 01:30 BP 215/97 12/16/23 01:30 Pulse Ox 93 12/16/23 05:13 O2 Del Method Nasal Cannula 12/16/23 02:06 O2 Flow Rate 3 12/15/23 23:30 FiO2 32 12/16/23 05:13 12/15/23 12/16/23 12/16/23 22:59 06:59 14:59 Intake Total 500 / 500 462.75 / 962.75 22.825 / 22.825 Output Total 925 / 925 Balance 500 / 500 -462.25 / 37.75 22.825 / 22.825 Weight last 48 hrs Weight 160.481 kg Weight 160.481 kg Weight 154.221 kg Physical Exam 2 Narrative: General exam is a white male, on nasal cannula, with an elevated respiratory rate but denied major complaints. Approximately mid 20s on his respiratory rate. Neck is supple Cardiovascular regular rate and rhythm without murmur Lungs no wheezing or crackles. Diminished breath sounds are noted bilaterally. Abdomen is soft nontender with positive bowel sounds Extremities 1+ edema bilaterally Urinary Catheter Management: Briceño: Cath Placed During This Visit: yes Reason for Continuing Indwelling Catheter: Accurate Measurement of Urinary Output in Critically Ill Patients Urinary Catheter Date of Insertion: 12/16/23 Urinary Catheter Time of Insertion: 05:04 Data 12/16/23 03:41 12/16/23 07:12 Micro: Microbiology 12/15/23 22:30 Blood Culture - Preliminary Blood SPECIMEN COLLECTED 12/15/23 22:30 Blood Culture - Preliminary Blood SPECIMEN COLLECTED A&P Assessment and plan (1) Acute hyperkalemia: Patient presents with acute hyperkalemia Kayexalate 30 g p.o. given this morning by nephrology. Currently on a insulin drip Currently getting bicarbonate fluids Received a dose of Bumex this morning Potassium is decreasing, now 6.4 BMP ordered for noon Appreciate nephrology consultation (2) Acute kidney injury: Patient taking a significant amount of anti-inflammatories prior to coming in No obstruction on CT scan. Abdomen and pelvis CT without contrast was done with no acute findings. Continue to follow serial BMPs secondary to hyperkalemia Hold ARB. Discontinue Neurontin secondary to renal failure Avoid renal toxic medication Continue Briceño (3) Normocytic anemia: Patient with significant anemia Stool Hemoccults. While dictating this note I was informed patient has some blood in stool. Will give him Protonix 40 mg IV every 12 hours. Hold heparin. Monitor and consider further workup after patient is stabilized. Previous iron studies did not demonstrate iron deficiency May in part be due to renal dysfunction CBC daily Check PT PTT with next blood draw. (4) Diabetes mellitus type 2, uncontrolled, with complications: Continue insulin drip Transition to sliding scale, likely small dose of long-acting insulin later in the afternoon (5) Elevated troponin: Appears to be a type II elevation Echocardiogram is when ordered (6) Pneumonia: Concern of pneumonia on x-ray Patient is hypoxic Continue Rocephin, doxycycline Sputum culture, MRSA PCR, respiratory panel. Respiratory panel was negative (7) Heart failure with preserved ejection fraction: Patient with some evidence of fluid overload on exam Bumex had been ordered by nephrology. (8) HTN (hypertension): Patient with marked hypertension Reconcile medicine list Currently on nicardipine Goal blood pressures around 150-170 systolic Plan History of A-fib. Currently sinus rhythm. Taken off anticoagulation secondary to history of GI bleed. Multiple other medical problems as outlined in past medical history Full code SCDs for DVT prophylaxis. Anticoagulation contraindicated secondary to blood noted in stool. Attestations 2 Medical Necessity Statement*: Needs continued hospitalization secondary to hyperkalemia with potential for worsening secondary to the patient's acute kidney injury. Also now with some bleeding. Critical Care Time: The high probability of a clinically significant, sudden or life threatening deterioration of the patient's [renal, pulmonary, cardiac] system(s) required my full and direct attention, intervention and personal management. The critical care time is as shown. This time is in addition to time spent performing any reported procedures but includes the following: [x] Data and vital sign review and interpretation [x] Patient assessment, examination and intervention [x] Documentation [x] Medication orders and management Critical Care Time (min): 38 Coding Level of Care Code Critical Care >/= 30 minutes Critical care time (in minutes): 38 The high probability of a clinically significant, sudden or life threatening deterioration, as referenced in this documentation, required my full and direct attention, intervention and personal management. The critical care time shown is in addition to time spent performing any reported separately billable procedures and includes the following: [x] Data and vital sign review and interpretation [x ] Patient assessment, examination and intervention [x] Medication orders and management [x] Patient/Family updates as able [x] Care Coordination and Documentation. Diagnoses Acute hyperkalemia E87.5 Acute kidney injury N17.9 Normocytic anemia D64.9 Diabetes mellitus type 2, uncontrolled, with complications Elevated troponin R77.8 Pneumonia J18.9 Heart failure with preserved ejection fraction I50.30 HTN (hypertension) I10
[2023-12-16] MEDS: bumetanide 0.25 mg/mL SDV 4 mL 1 MG IVP (08:53)
[2023-12-16] MEDS: sodium polystyrene sulfonate 15 gm/60 mL Btl 30 GM PO (08:54)
[2023-12-16] MEDS: pantoprazole DR 40 mg Tablet PO (08:54)
[2023-12-16] MEDS: doxycycline 100 mg Tablet PO ×2 (08:54→17:07)
[2023-12-16] MEDS: cefTRIAXone 1,000 MG in sodium chloride 0.9% (plus) 50 ML 100 MG IV (08:55)
[2023-12-16] MEDS: bumetanide 25 MG in empty flexible container 1 EACH 4 MG IV (08:55)
[2023-12-16] MEDS: pantoprazole 40 mg SDV IVP ×2 (09:19→20:30)
[2023-12-16 09:26] LABS: Glucose Point of Care 139 mg/dL (70-110)
--- NOTE | 2023-12-16 10:04 | ECG_ITS ---
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 Measurements Intervals [place] Rate: 84 P: 46 FL: 204 QRS: 8 QRSD: 106 T: 55 QT: 373 QTc: 442 Interpretive Statements SINUS RHYTHM MODERATE INTRAVENTRICULAR CONDUCTION DELAY [105+ ms QRS DURATION, 80+ ms Q/S IN V1/V2, NO Q AND 60+ ms R IN I/aVL/V5/V6] MODERATE ST DEPRESSION [0.05+ mV ST DEPRESSION] Compared to ECG 12/16/2023 06:35:07 Intraventricular conduction delay now present ST (T wave) deviation still present Electronically Signed On 12-16-2023 14:22:01 CDT by Bora Gómez M.D. [id number]
[2023-12-16 11:02] LABS: Lactate (Lactic Acid level) 2.9 mmol/L (0.5-2.2)
[2023-12-16 11:04] LABS: Troponin 5 6HR 88.58 ng/L (0-15)
[2023-12-16 11:05] LABS: Glucose Point of Care 152 mg/dL (70-110)
[2023-12-16] MEDS: metoprolol tartrate 25 mg Tablet PO ×2 (11:05→20:31)
[2023-12-16 11:07] LABS: Troponin 5 6HR Delta -10.42 ng/L (0-12)
[2023-12-16 12:10] LABS: Glucose Point of Care 297 mg/dL (70-110)
[2023-12-16 12:10] LABS: Glucose Point of Care 251 mg/dL (70-110)
[2023-12-16 14:11] LABS: INR 1.24 (0.8-1.2)
[2023-12-16 14:12] LABS: Partial Thromboplastin Time 25.7 SECONDS (23.9-36.7)
[2023-12-16 14:17] LABS: Anion Gap 19.1 (5-19); Blood Urea Nitrogen 53 mg/dL (8-23); Carbon Dioxide 26 mmol/L (22-29); Chloride 96 mmol/L (98-107); Glomerular Filtration Rate 25.8 mL/min (90-130); Glucose 287 mg/dL (65-115); Osmolality Calculated 305 mOsm/kg (285-295); Potassium 6.1 mmol/L (3.5-5.1); Sodium 135 mmol/L (136-145)
[2023-12-16 14:36] LABS: Glucose Point of Care 360 mg/dL (70-110)
[2023-12-16 15:45] LABS: Glucose Urine UA 1+ (Normal); Protein Urine 3+ (Negative); Urine Appearance Turbid (CLEAR); Urine Color Red (Yellow); pH Urine 6 (5-7)
[2023-12-16 15:46] LABS: Bilirubin Urine Neg (Negative); Blood Urine 3+ (Negative); Ketones Urine 1+ (Negative); Leukocyte Esterase Urine 2+ (Negative); Nitrate Urine Negative (Negative); Urobilinogen Urine Norm (Negative)
[2023-12-16 15:47] LABS: Add Urine Culture? Yes; Bacteria Urine TRACE /hpf; RBC Urine TOO NUMEROUS TO CNT /hpf (0-2); Squamous Epithelial Cell Urine 0-4 /hpf (0-5)
[2023-12-16 15:49] LABS: Potassium, Radom Urine 44 mmol/L; Urine Creatinine 80 mg/dL (39-259); Urine Random Chloride 34 mmol/L; Urine Random Sodium 45 mmol/L
[2023-12-16 15:50] LABS: Creatinine Urine, Random 80 mg/dL (39-259)
[2023-12-16 16:01] LABS: Urine Protein Random 341 mg/dL
[2023-12-16 16:02] LABS: Microalbum Creatinine Ratio Ur 2863 mg/dL (0-20); Microalbumin Random Urine 229 ug/dL (0-20)
[2023-12-16 16:14] LABS: Anion Gap 20.1 (5-19); Blood Urea Nitrogen 52 mg/dL (8-23); Calcium 8.8 mg/dL (8.5-10.5); Carbon Dioxide 24 mmol/L (22-29); Chloride 93 mmol/L (98-107); Glomerular Filtration Rate 25.8 mL/min (90-130); Glucose 285 mg/dL (65-115); Osmolality Calculated 296 mOsm/kg (285-295); Potassium 6.1 mmol/L (3.5-5.1); Sodium 131 mmol/L (136-145)
[2023-12-16 17:03] LABS: Glucose Point of Care 311 mg/dL (70-110)
[2023-12-16] MEDS: insulin lispro 100 unit/1 mL SUBCUT (17:07)
[2023-12-16 22:57] LABS: Anion Gap 17.7 (5-19); Blood Urea Nitrogen 54 mg/dL (8-23); Carbon Dioxide 28 mmol/L (22-29); Chloride 96 mmol/L (98-107); Creatinine Clr Calc Pharmacy 46.7218; Glomerular Filtration Rate 27.1 mL/min (90-130); Glucose 185 mg/dL (65-115); Osmolality Calculated 302 mOsm/kg (285-295); Potassium 5.7 mmol/L (3.5-5.1); Sodium 136 mmol/L (136-145)
[2023-12-17] VITALS (240 sets, daily range): BP systolic 144–194; BP diastolic 49–141; PULSE 62–93; RESP 11–33; TEMP 36.4–36.9; O2SAT 84–98
[2023-12-17] MEDS: nicardipine 20 MG/200 ML PREMIX 75 MG IV ×5 (00:57→21:57)
[2023-12-17 01:27] LABS: Blood Urea Nitrogen 53 mg/dL (8-23); Calcium 8.6 mg/dL (8.5-10.5); Carbon Dioxide 27 mmol/L (22-29); Chloride 95 mmol/L (98-107); Glomerular Filtration Rate 25.8 mL/min (90-130); Glucose 197 mg/dL (65-115); Osmolality Calculated 300 mOsm/kg (285-295); Sodium 135 mmol/L (136-145)
[2023-12-17 01:47] LABS: Anion Gap 18.7 (5-19); Potassium 5.7 mmol/L (3.5-5.1)
[2023-12-17] MEDS: nystatin powder 15 gm Btl 1 APPLIC TOPICAL ×3 (01:56→17:16)
[2023-12-17] MEDS: nitroglycerin 1 gm/inch oint Pkt 2 INCH TOPICAL ×3 (01:56→12:58)
[2023-12-17 03:56] LABS: Basophils % 0.3 %; Eosinophils # 0.1 10^3/uL (0.0-0.8); Eosinophils % 0.6 %; Hematocrit 25.4 % (37-53); Lymphocytes # 1.5 10^3/uL (0.8-4.8); Lymphocytes % 10.4 %; Mean Corpuscular HGB Conc 31.5 g/dL (30-55); Mean Corpuscular Hemoglobin 28.7 pg (27-33); Mean Platelet Volume 10.7 fL (7.4-10.4); Monocytes # 1.2 10^3/uL (0.2-0.9); Monocytes % 8.6 %; Neutrophils # 11.19 10^3/uL (1.8-7.7); Neutrophils % 79.7 %; Nucleated Red Blood Cells % 0 %; Platelet Count 201 10^3/cmm (157-399); Red Blood Count 2.79 10^6/uL (3.85-5.65); White Blood Count 14.03 10^3/uL (3.29-11.43)
[2023-12-17 04:24] LABS: Alanine Aminotransferase 11 U/L (0-41); Albumin Level 3.5 g/dL (3.5-5.2); Alkaline Phosphatase 124 U/L (40-130); Aspartate Amino Transferase 20 U/L (0-40); Blood Urea Nitrogen 53 mg/dL (8-23); Calcium 8.8 mg/dL (8.5-10.5); Carbon Dioxide 27 mmol/L (22-29); Chloride 95 mmol/L (98-107); Globulin 2.9 g/dL (1.3-4.6); Glomerular Filtration Rate 25.8 mL/min (90-130); Glucose 212 mg/dL (65-115); Osmolality Calculated 303 mOsm/kg (285-295); Sodium 136 mmol/L (136-145); Total Bilirubin 0.3 mg/dL (0.15-1.2); Total Protein 6.4 g/dL (6.6-8.7)
[2023-12-17 04:29] LABS: Calcium 8.9 mg/dL (8.5-10.5)
[2023-12-17 04:39] LABS: 25 Hydroxy Vitamin D 6 ng/mL (30-100); Ferritin 68 ng/mL (30-400); Iron 34 ug/dL (59-158); Percent Saturation 10.2 % (20-50); Phosphorus 5.2 mg/dL (2.5-4.5); Total Iron Binding Capacity 333 mcg/dl; Unsaturated Iron Binding 299 ug/dL (112-347)
--- NOTE | 2023-12-17 07:27 | XR_ITS ---
WS: [id number] PORTABLE CHEST HISTORY: Post PICC insertion COMPARISON: 12/15/2023 Interval insertion of left-sided PICC line in good position. Tip terminates at the caval atrial junct ion. No complications are apparent. There are a few scattered asymmetries at the lung bases probably representing atelectasis. No pleural effusion or pneumothorax. Cardiac size: Normal. Mediastinum/Aorta: Normal mediastinum. No osseous abnormality seen. XR/XR chest 1V portable [id number] IMPRESSION: Satisfactory positioning LEFT PICC line.
[2023-12-17 07:45] LABS: Uric Acid 9.7 mg/dL (3.4-7.0)
--- NOTE | 2023-12-17 08:03 | P.PN_ITS ---
Subjective 2 Subjective: feels better. no n/v/f/c/whitaker/d. per chart he had bloody stools. he does not recall bloody stools. Medications: Reviewed: Yes Medication Review Details: Current Medications Acetaminophen (Acetaminophen 500 Mg Tablet) 500 mg PO Q4H PRN PRN Reason: fever Albuterol/Ipratropium (Ipratropium-Albuterol 3 Ml Neb) 3 ml INHALATION Q6H PRN PRN Reason: SHORTNESS OF BREATH Doxycycline Monohydrate (Doxycycline 100 Mg Tablet) 100 mg PO BID [facility]; Protocol Last Admin: 12/16/23 17:07 Dose: 100 mg Glucagon (Glucagon 1 Mg/Ml Kit 1 Ml) 1 mg IM ONCE PRN; Protocol PRN Reason: Adult Acute Hypoglycemia Nursing Prot. Glucagon (Glucagon 1 Mg/Ml Kit 1 Ml) 1 mg IM ONCE PRN; Protocol PRN Reason: Adult Acute Hypoglycemia Nursing Prot. Heparin Sodium (Porcine) (Heparin 5,000 Unit/Ml Inj 1 Ml) 5,000 unit SUBCUT Q12H [facility] Last Admin: 12/16/23 09:00 Dose: Not Given Dextrose (D5w) 500 mls @ 0 mls/hr IV ONCE PRN; Protocol PRN Reason: Adult Acute Hypoglycemia Prot Dextrose (D10w) 125 mls @ 750 mls/hr IV PRN PRN; Protocol PRN Reason: Adult Acute Hypoglycemia Nursing Protocol Dextrose (D10w) 250 mls @ 1,000 mls/hr IV PRN PRN; Protocol PRN Reason: Adult Acute Hypoglycemia Nursing Protocol Ceftriaxone Sodium 1,000 mg/ (Sodium Chloride) 50 mls @ 100 mls/hr IV DAILY [facility]; Protocol Last Infusion: 12/16/23 09:25 Dose: Infused Nicardipine/Sodium Chloride (Cardene) 20 mg in 200 mls @ 0 mls/hr IV .Q0M [facility]; Protocol Last Admin: 12/17/23 06:26 Dose: 7.5 mg/hr, 75 mls/hr Dextrose (D10w) 250 mls @ 1,000 mls/hr IV PRN PRN PRN Reason: HYPOGLYCEMIA Dextrose (D5w) 500 mls @ 0 mls/hr IV ONCE PRN; Protocol PRN Reason: Adult Acute Hypoglycemia Prot Dextrose (D10w) 125 mls @ 750 mls/hr IV PRN PRN; Protocol PRN Reason: Adult Acute Hypoglycemia Nursing Protocol Dextrose (D10w) 250 mls @ 1,000 mls/hr IV PRN PRN; Protocol PRN Reason: Adult Acute Hypoglycemia Nursing Protocol Bumetanide 25 mg/ N/A 100 mls @ 4 mls/hr IV .Q24H [facility] Last Admin: 12/16/23 08:55 Dose: 1 mg/hr, 4 mls/hr Insulin Human Lispro (Insulin Lispro 100 Unit/1 Ml) 0 unit SUBCUT TIDWM [facility]; Protocol Last Admin: 12/16/23 17:07 Dose: 12 unit Metoprolol Tartrate (Metoprolol Tartrate 25 Mg Tablet) 25 mg PO BID@0900,2100 [facility] Last Admin: 12/16/23 20:31 Dose: 25 mg Nitroglycerin (Nitroglycerin 1 Gm/Inch Oint Pkt) 2 inch TOPICAL Q6H [facility] Last Admin: 12/17/23 01:56 Dose: 2 inch Nystatin (Nystatin Powder 15 Gm Btl) 1 applic TOPICAL BID [facility] Last Admin: 12/17/23 01:56 Dose: 1 applic Ondansetron HCl (Ondansetron 2 Mg/Ml Sdv 2 Ml) 4 mg IVP Q6H PRN PRN Reason: NAUSEA AND VOMITING Pantoprazole Sodium (Pantoprazole 40 Mg Sdv) 40 mg IVP Q12H [facility] Last Admin: 12/16/23 20:30 Dose: 40 mg Pramipexole Dihydrochloride (Pramipexole 0.25 Mg Tablet) 0.25 mg PO TID PRN PRN Reason: RESTLESS LEG SYNDROME Vitals/I&O/Wt Last Vital Signs Temp 98.5 F 12/17/23 04:20 Pulse 76 12/17/23 06:30 Resp 14 12/17/23 06:30 BP 146/100 12/17/23 06:30 Pulse Ox 93 12/17/23 06:30 O2 Del Method Nasal Cannula 12/16/23 09:36 O2 Flow Rate 3 12/16/23 09:36 FiO2 32 12/16/23 23:15 12/16/23 12/17/23 12/17/23 22:59 06:59 14:59 Intake Total 701.25 / 1528.550 840 / 2368.550 Output Total 1700 / 1700 3300 / 5000 Balance -998.75 / -171.450 -2460 / -2631.450 Weight last 48 hrs Weight 161.479 kg Weight 160.481 kg Weight 160.481 kg Weight 154.221 kg Physical Exam 2 Narrative: Obese man sitting in chair, NARD Vital signs noted on cardene and bumex drips HEENT normocephalic atraumatic. Neck is supple Lungs dull bases , improved air movement b/l. Heart regular positive S1-S2. Abdomen soft positive bowel sounds. Extremities 1+ edema improving b/l Patient has a Briceño catheter. Neuro awake alert oriented x 3. Urinary Catheter Management: Briceño: Cath Placed During This Visit: yes Reason for Continuing Indwelling Catheter: Accurate Measurement of Urinary Output in Critically Ill Patients Urinary Catheter Date of Insertion: 12/16/23 Urinary Catheter Time of Insertion: 05:04 Data 12/17/23 03:20 12/17/23 03:20 Micro: Microbiology 12/15/23 22:30 Blood Culture - Preliminary Blood NEGATIVE TO DATE 12/15/23 22:30 Blood Culture - Preliminary Blood NEGATIVE TO DATE A&P Assessment and plan (1) Acute hyperkalemia: 68-year-old gentleman with heart failure preserved EF, GI bleed, home O2 dependent, diabetes, sleep apnea, obesity. The patient is here with weakness and shortness of breath. 1. Acute kidney injury -his labs were reviewed. His creatinine was 1.1 mg to 1.2 mg/dL in 2021. Creatinine of 2 in 2022, and his creatinine is now 2.4 mg/dL. Imaging reviewed without hydronephrosis. Risk for renal dysfunction in this patient can be from interstitial nephritis the patient takes 16 NSAIDs a day. Also risk for diabetic, hypertensive disease. Agree with stopping ADRIANA in addition. -urine reviewed w/ blood and protein- likely from dm- has ur alb/ cr 2863- will however, send serologies -check ldh, retic count, haptaglobin 2. Severe hypertension: To be concerned about a hypertensive TMA he is anemic however does not have significant thrombocytopenia. Will try to treat his blood pressure without using a adriana-i or arb Patient is on a Cardene drip. wean off cardene Will add amlodipine, can inc beta-rustam. No ADRIANA inhibitor's or ARB with severe hyperkalemia and acute kidney injury. 3. Hyponatremia improved 4. Hyperkalemia from acute kidney injury using a center mission and potassium supplements. Stop ADRIANA intervention and potassium supplements monitor chemistries every 4 hours. Monitor with Bumex. 5. Anemia -replace iron await electrophoresis and immunofixation given renal insufficiency and acute kidney injury. 6. replace vit d . Diabetic control -f/u echo. Will follow the patient closely along with you. The patient was seen and examined using A/V equipment and a nurse at the telehealth visit. The patient consents to telehealth and to hemodialysis if necessary. Plan See above Attestations 2 Medical Necessity Statement*: shaji, hyperkalemia Time Spent in Patient Care: 16 - 35 minutes (>than 50% of time sp ent in counselling and/or direct pt care on unit) . Coding Level of Care Code Acute Code for Chg Fwd Diagnoses Acute hyperkalemia E87.5
--- NOTE | 2023-12-17 08:10 | PICC.NOTE ---
Triple lumen PICC placed to left brachial vein. Referred to vascular access nurse for PICC placement due to poor access. Risks and benefits discussed and informed consent obtained from patient. Pt with history of surgery to right shoulder. Extensive scarring noted. Left arm assessed with left brachial vein measuring 4.8 mm, straight, and apparent best choice for placement. Using sterile technique and MST, left brachial vein accessed x 1 stick. Mid-arm circumference measured 10 cm from left AC 41 cm. Trimmed cath 53 cm with 0 cm external length noted. CXR shows tip in cavoatrial junction, in good position for use per radiologist. Line secured with stat-lock. Insertion site covered with Biopatch and TSM. Report given to bedside nurse, JORGITO Dorado.
[2023-12-17 08:22] LABS: Reticulocyte % 2.7 % (0.5-2.0)
[2023-12-17 08:40] LABS: Lactate Dehydrogenase 183 U/L (135-225)
[2023-12-17 08:55] LABS: Glucose Point of Care 259 mg/dL (70-110)
[2023-12-17] MEDS: pantoprazole 40 mg SDV IVP ×2 (08:59→20:36)
[2023-12-17] MEDS: cefTRIAXone 1,000 MG in sodium chloride 0.9% (plus) 50 ML 100 MG IV (08:59)
[2023-12-17] MEDS: amlodipine 10 mg Tablet PO (08:59)
[2023-12-17] MEDS: bumetanide 0.25 mg/mL SDV 4 mL 1 MG IVP ×2 (08:59→20:00)
[2023-12-17] MEDS: doxycycline 100 mg Tablet PO ×2 (09:00→17:14)
[2023-12-17] MEDS: insulin lispro 100 unit/1 mL SUBCUT ×3 (09:01→17:15)
[2023-12-17] MEDS: sodium polystyrene sulfonate 15 gm/60 mL Btl 30 GM PO (09:01)
[2023-12-17] MEDS: ergocalciferol (vitamin D2) 50,000 Unit Capsule 50000 UNIT PO (09:05)
[2023-12-17] MEDS: metoprolol tartrate 25 mg Tablet 50 MG PO ×2 (09:05→20:00)
--- NOTE | 2023-12-17 09:05 | P.PN_ITS ---
Subjective 2 Subjective: No complaints. Feels better. No chest discomfort. Does not feel short of breath. Still on nicardipine. Still on Bumex. Wants something for his restless legs. No further blood noted in bowel movement Medications: Reviewed: Yes Vitals/I&O/Wt Last Vital Signs Temp 98.5 F 12/17/23 04:20 Pulse 75 12/17/23 08:26 Resp 17 12/17/23 08:26 BP 146/100 12/17/23 06:30 Pulse Ox 94 12/17/23 08:26 O2 Del Method Nasal Cannula 12/17/23 08:26 O2 Flow Rate 3 12/17/23 08:26 FiO2 32 12/16/23 23:15 12/16/23 12/17/23 12/17/23 22:59 06:59 14:59 Intake Total 701.25 / 1528.550 840 / 2368.550 Output Total 1700 / 1700 3300 / 5000 Balance -998.75 / -171.450 -2460 / -2631.450 Weight last 48 hrs Weight 161.479 kg Weight 160.481 kg Weight 160.481 kg Weight 154.221 kg Physical Exam 2 Narrative: General exam is a white male, on 3 L, no distress Neck is supple Cardiovascular regular rate and rhythm without murmur Lungs no wheezing or crackles. Diminished breath sounds are noted bilaterally. Abdomen is soft nontender with positive bowel sounds Extremities no significant edema Urinary Catheter Management: Briceoñ: Cath Placed During This Visit: yes Reason for Continuing Indwelling Catheter: Accurate Measurement of Urinary Output in Critically Ill Patients Urinary Catheter Date of Insertion: 12/16/23 Urinary Catheter Time of Insertion: 05:04 Data 12/17/23 03:20 12/17/23 03:20 Micro: Microbiology 12/15/23 22:30 Blood Culture - Preliminary Blood NEGATIVE TO DATE 12/15/23 22:30 Blood Culture - Preliminary Blood NEGATIVE TO DATE A&P Assessment and plan (1) Acute hyperkalemia: Patient presents with acute hyperkalemia Potassium is still elevated Kayexalate 30 g p.o. x 1 Currently on a Bumex drip Repeat BMP about 1 PM Appreciate nephrology consultation (2) Acute kidney injury: Patient taking a significant amount of anti-inflammatories prior to coming in No obstruction on CT scan. Abdomen and pelvis CT without contrast was done with no acute findings. Continue to follow BMP secondary to hyperkalemia, renal failure Hold ARB. Discontinue Neurontin secondary to renal failure Avoid renal toxic medication Continue Briceño (3) Normocytic anemia: Patient with significant anemia Had several episodes of blood in stool yesterday. Heparin subcutaneous was held. Had previous workup and no source found in the past. Placed on Protonix IV. If no further bleeding today, consider restart of heparin subcu. SCDs for now. Has iron deficiency, and may be in some part secondary to chronic kidney disease CBC daily Haptoglobin was checked by nephrology. No evidence of hemolysis. Nephrology supplementing with IV iron (4) Diabetes mellitus type 2, uncontrolled, with complications: Continue sliding scale insulin. Add low-dose Lantus 10 units at night considering his renal dysfunction (5) Elevated troponin: Appears to be a type II elevation Echocardiogram is when ordered (6) Pneumonia: Concern of pneumonia on x-ray Patient is hypoxic Continue Rocephin, doxycycline Sputum culture, MRSA PCR, respiratory panel. Respiratory panel was negative (7) Heart failure with preserved ejection fraction: Patient with some evidence of fluid overload on exam Bumex had been ordered by nephrology. Converted to every 12 hours Bumex today (8) HTN (hypertension): Patient with marked hypertension Reconcile medicine list Currently on nicardipine Will wean off nicardipine. Norvasc has been initiated by nephrology. Metoprolol has been increased. Plan History of A-fib. Currently sinus rhythm. Taken off anticoagulation secondary to history of GI bleed. Multiple other medical problems as outlined in past medical history Full code SCDs for DVT prophylaxis. Anticoagulation contraindicated secondary to blood noted in stool. Attestations 2 Medical Necessity Statement*: Needs continued hospital stay secondary to marked hypertension requiring nicardipine drip, fluid overload requiring Bumex IV, acute kidney injury with hyperkalemia. Critical Care Time: The high probability of a clinically significant, sudden or life threatening deterioration of the patient's [renal failure, hyperkalemia, hypertension, pneumonia] system(s) required my full and direct attention, intervention and personal management. The critical care time is as shown. This time is in addition to time spent performing any reported procedures but includes the following: [x] Data and vital sign review and interpretation [x] Patient assessment, examination and intervention [x] Documentation [x] Medication orders and management Critical Care Time (min): 34 Coding Level of Care Code Acute Code for Chg Fwd Diagnoses Acute hyperkalemia E87.5 Acute kidney injury N17.9 Normocytic anemia D64.9 Diabetes mellitus type 2, uncontrolled, with complications Elevated troponin R77.8 Pneumonia J18.9 Heart failure with preserved ejection fraction I50.30 HTN (hypertension) I10
[2023-12-17] MEDS: pramipexole 0.25 mg Tablet PO ×2 (09:11→20:00)
[2023-12-17] MEDS: ferric gluconate 125 MG in sodium chloride 0.9% (100 ml) 100 ML 110 MG IV (10:40)
[2023-12-17 12:25] LABS: Anti-Double Strand DNA AB 2 IU/mL
[2023-12-17 12:52] LABS: Glucose Point of Care 276 mg/dL (70-110)
[2023-12-17] MEDS: nicardipine 20 MG/200 ML PREMIX 50 MG IV ×2 (12:58→19:30)
[2023-12-17] MEDS: isosorbide mononitrate ER 30 mg Tablet PO (13:37)
[2023-12-17 14:39] LABS: Blood Urea Nitrogen 57 mg/dL (8-23); Calcium 8.7 mg/dL (8.5-10.5); Carbon Dioxide 28 mmol/L (22-29); Chloride 93 mmol/L (98-107); Creatinine Clr Calc Pharmacy 43.2814; Glomerular Filtration Rate 24.7 mL/min (90-130); Glucose 223 mg/dL (65-115); Osmolality Calculated 297 mOsm/kg (285-295); Sodium 132 mmol/L (136-145)
[2023-12-17 16:00] LABS: Anti-Nuclear Antibody Screen NEGATIVE (NEGATIVE)
[2023-12-17 17:08] LABS: Glucose Point of Care 271 mg/dL (70-110)
[2023-12-17] MEDS: heparin 5,000 unit/mL INJ 1 mL 5000 UNIT SUBCUT (17:15)
[2023-12-17] MEDS: insulin glargine 100 units/1 mL 10 UNIT SUBCUT (20:00)
[2023-12-17 20:26] LABS: Methicillin-Resist S.aureu PCR DETECTED (NOT DETECTED)
[2023-12-18] VITALS (227 sets, daily range): BP systolic 130–222; BP diastolic 60–153; PULSE 60–100; RESP 6–33; TEMP 36.4–37.1; O2SAT 88–99
[2023-12-18] MEDS: nicardipine 20 MG/200 ML PREMIX 75 MG IV (00:19)
[2023-12-18 04:14] LABS: Basophils # 0.1 10^3/uL (0.0-0.1); Basophils % 0.5 %; Eosinophils # 0.2 10^3/uL (0.0-0.8); Eosinophils % 1.8 %; Hematocrit 25.3 % (37-53); Lymphocytes # 1.5 10^3/uL (0.8-4.8); Lymphocytes % 14.9 %; Mean Corpuscular HGB Conc 30.8 g/dL (30-55); Mean Corpuscular Hemoglobin 28.3 pg (27-33); Mean Corpuscular Volume 91.7 fl (82-101); Mean Platelet Volume 10.3 fL (7.4-10.4); Monocytes # 1.1 10^3/uL (0.2-0.9); Monocytes % 10.3 %; Neutrophils % 71.9 %; Nucleated Red Blood Cells % 0 %; Platelet Count 198 10^3/cmm (157-399); Red Blood Count 2.76 10^6/uL (3.85-5.65); Red Cell Distribution Width 13.8 % (12.1-15.1); White Blood Count 10.29 10^3/uL (3.29-11.43)
[2023-12-18 04:35] LABS: Alanine Aminotransferase 11 U/L (0-41); Albumin Level 3.3 g/dL (3.5-5.2); Alkaline Phosphatase 125 U/L (40-130); Anion Gap 19.9 (5-19); Aspartate Amino Transferase 17 U/L (0-40); Blood Urea Nitrogen 62 mg/dL (8-23); Calcium 8.4 mg/dL (8.5-10.5); Carbon Dioxide 28 mmol/L (22-29); Chloride 98 mmol/L (98-107); Creatinine Clr Calc Pharmacy 41.6784; Globulin 2.8 g/dL (1.3-4.6); Glomerular Filtration Rate 23.6 mL/min (90-130); Glucose 205 mg/dL (65-115); Osmolality Calculated 316 mOsm/kg (285-295); Phosphorus 5.5 mg/dL (2.5-4.5); Potassium 4.9 mmol/L (3.5-5.1); Sodium 141 mmol/L (136-145); Total Bilirubin 0.2 mg/dL (0.15-1.2); Total Protein 6.1 g/dL (6.6-8.7)
[2023-12-18] MEDS: heparin 5,000 unit/mL INJ 1 mL 5000 UNIT SUBCUT ×2 (05:51→17:23)
[2023-12-18] MEDS: pramipexole 0.25 mg Tablet PO ×3 (06:14→20:24)
[2023-12-18 07:48] LABS: Glucose Point of Care 236 mg/dL (70-110)
[2023-12-18] MEDS: pantoprazole DR 40 mg Tablet PO ×2 (08:14→17:23)
[2023-12-18] MEDS: bumetanide 0.25 mg/mL SDV 4 mL 1 MG IVP ×2 (08:15→20:16)
[2023-12-18] MEDS: amlodipine 10 mg Tablet PO (08:15)
[2023-12-18] MEDS: levothyroxine 25 mcg Tablet PO (08:15)
[2023-12-18] MEDS: insulin lispro 100 unit/1 mL SUBCUT ×3 (08:15→17:24)
[2023-12-18] MEDS: isosorbide mononitrate ER 30 mg Tablet PO ×2 (08:15→17:23)
[2023-12-18] MEDS: doxycycline 100 mg Tablet PO ×2 (08:15→17:23)
[2023-12-18] MEDS: cefTRIAXone 1,000 MG in sodium chloride 0.9% (plus) 50 ML 100 MG IV (08:16)
[2023-12-18] MEDS: metoprolol tartrate 25 mg Tablet 50 MG PO ×2 (08:18→20:16)
[2023-12-18] MEDS: tamsulosin 0.4 mg Capsule PO (08:20)
[2023-12-18] MEDS: ferric gluconate 125 MG in sodium chloride 0.9% (100 ml) 100 ML 110 MG IV (09:03)
--- NOTE | 2023-12-18 09:15 | P.PN_ITS ---
Subjective 2 Subjective: Patient reports he is feeling better. Denies being short of breath. Feels less swollen. Was taken off nicardipine last night but put back on early this morning. Medications: Reviewed: Yes Vitals/I&O/Wt Last Vital Signs Temp 97.8 F 12/18/23 05:00 Pulse 89 12/18/23 07:40 Resp 15 12/18/23 07:40 BP 189/80 12/18/23 07:40 Pulse Ox 93 12/18/23 07:40 O2 Del Method Nasal Cannula 12/17/23 08:26 O2 Flow Rate 3 12/17/23 08:26 FiO2 32 12/16/23 23:15 12/17/23 12/18/23 12/18/23 22:59 06:59 14:59 Intake Total 491.250 / 2538.800 339.584 / 2878.384 Output Total 2400 / 2400 1450 / 3850 Balance -1908.750 / 138.800 -1110.416 / -971.616 Weight last 48 hrs Weight 162.477 kg Weight 161.479 kg Physical Exam 2 Narrative: General exam is a white male, on 3 L, no distress. I turned this down to 2 L. Neck is supple Cardiovascular regular rate and rhythm without murmur Lungs no wheezing or crackles. Diminished breath sounds are noted bilaterally. Abdomen is soft nontender with positive bowel sounds Extremities no significant edema Urinary Catheter Management: Briceño: Cath Placed During This Visit: yes Reason for Continuing Indwelling Catheter: Accurate Measurement of Urinary Output in Critically Ill Patients Urinary Catheter Date of Insertion: 12/16/23 Urinary Catheter Time of Insertion: 05:04 Data 12/18/23 03:46 12/18/23 03:46 Micro: Microbiology 12/15/23 22:30 Blood Culture - Preliminary Blood Staphylococcus epidermidis 12/16/23 19:35 Gram Stain - Final Sputum - Expectorated Sputum 12/16/23 14:50 Urine Culture - Preliminary Urine,Clean Catch A&P Assessment and plan (1) Acute hyperkalemia: Patient presents with acute hyperkalemia Potassium is now normal Renal function slightly worse, nephrology following Appreciate nephrology consultation (2) Acute kidney injury: Patient taking a significant amount of anti-inflammatories prior to coming in No obstruction on CT scan. Abdomen and pelvis CT without contrast was done with no acute findings. Continue to follow BMP secondary to hyperkalemia, renal failure Hold ARB. Neurontin was discontinued secondary to renal failure Avoid renal toxic medication Continue Briceño (3) Normocytic anemia: Patient with significant anemia Hemoglobin stable. Past history of GI bleed. He did have a slight bloody stool his first hospital stay but nothing further. Heparin subcu was restarted. Previous GI workup for anemia was negative. Change Protonix to p.o. Has iron deficiency, and may be in some part secondary to chronic kidney disease CBC daily Haptoglobin was checked by nephrology. No evidence of hemolysis. Nephrology supplementing with IV iron (4) Diabetes mellitus type 2, uncontrolled, with complications: Continue sliding scale insulin. Continue low-dose Lantus (5) Elevated troponin: Appears to be a type II elevation Echocardiogram demonstrates preserved EF, 3/4 diastolic dysfunction (6) Pneumonia: Concern of pneumonia on x-ray Patient is now back on his baseline oxygen requirement Currently on Rocephin, doxycycline Sputum culture, pending. MRSA PCR positive but last x-ray demonstrates infiltration his cleared and only a slight amount of atelectasis is present. Will not place on vancomycin as this could endanger kidney function and patient is significantly improving. Blood culture 1/4 bottles staph epi likely contaminant (7) Heart failure with preserved ejection fraction: Patient is better compensated today On Bumex IV Nephrology will address diuretics (8) HTN (hypertension): Patient with marked hypertension Currently back on nicardipine Continue Norvasc 10 mg a day, metoprolol 50 mg twice daily. Imdur was added and will increase to twice daily. Hydralazine will be ordered as needed. Try to wean off nicardipine today and transfer to first floor Plan History of A-fib. Currently sinus rhythm. Taken off anticoagulation secondary to history of GI bleed in the past Multiple other medical problems as outlined in past medical history Full code SCDs for DVT prophylaxis. Heparin for DVT prophylaxis Overall plan is to skilled care for rehabilitation. Attestations 2 Medical Necessity Statement*: Needs continued hospital stay for close follow-up of renal function as patient with renal failure, and IV antibiotics for pneumonia. Diagnoses Acute hyperkalemia E87.5 Acute kidney injury N17.9 Normocytic anemia D64.9 Diabetes mellitus type 2, uncontrolled, with complications Elevated troponin R77.8 Pneumonia J18.9 Heart failure with preserved ejection fraction I50.30 HTN (hypertension) I10 Time Spent (min) 31
[2023-12-18] MEDS: hyDRALAzine 50 mg Tablet PO ×3 (10:17→20:16)
[2023-12-18] MEDS: hyDRALAzine 20 mg/mL INJ 1 mL 10 MG IVP ×2 (10:17→22:08)
[2023-12-18] MEDS: nystatin powder 15 gm Btl 1 APPLIC TOPICAL ×2 (10:21→17:26)
--- NOTE | 2023-12-18 12:41 | P.PN_ITS ---
Subjective 2 Subjective: no new complaints Medications: Reviewed: Yes Vitals/I&O/Wt Last Vital Signs Temp 98.6 F 12/18/23 12:00 Pulse 78 12/18/23 12:05 Resp 14 12/18/23 12:05 BP 147/77 12/18/23 12:10 Pulse Ox 95 12/18/23 12:05 O2 Del Method Nasal Cannula 12/18/23 09:43 O2 Flow Rate 3 12/18/23 09:43 FiO2 32 12/16/23 23:15 12/17/23 12/18/23 12/18/23 22:59 06:59 14:59 Intake Total 491.250 / 2538.800 339.584 / 2878.384 467.916 / 467.916 Output Total 2400 / 2400 1450 / 3850 Balance -1908.750 / 138.800 -1110.416 / -971.616 467.916 / 467.916 Weight last 48 hrs Weight 162.477 kg Weight 161.479 kg Physical Exam 2 Narrative: Obese man sitting in chair, NARD Vital signs noted on cardene and bumex drips HEENT normocephalic atraumatic. Neck is supple Lungs dull bases , improved air movement b/l. Heart regular positive S1-S2. Abdomen soft positive bowel sounds. Extremities 1+ edema improving b/l Patient has a Briceño catheter. Neuro awake alert oriented x 3. Urinary Catheter Management: Briceño: Cath Placed During This Visit: yes Reason for Continuing Indwelling Catheter: Accurate Measurement of Urinary Output in Critically Ill Patients Urinary Catheter Date of Insertion: 12/16/23 Urinary Catheter Time of Insertion: 05:04 Data 12/18/23 03:46 12/18/23 03:46 Micro: Microbiology 12/16/23 14:50 Urine Culture - Final Urine,Clean Catch 12/15/23 22:30 Blood Culture - Preliminary Blood Staphylococcus epidermidis 12/16/23 19:35 Gram Stain - Final Sputum - Expectorated Sputum A&P Assessment and plan (1) Acute hyperkalemia: 68-year-old gentleman with heart failure preserved EF, GI bleed, home O2 dependent, diabetes, sleep apnea, obesity. The patient is here with weakness and shortness of breath. 1. Acute kidney injury -his labs were reviewed. His creatinine was 1.1 mg to 1.2 mg/dL in 2021. Creatinine of 2 in 2022, and his creatinine is now 2.4 mg/dL. Imaging reviewed without hydronephrosis. Risk for renal dysfunction in this patient can be from interstitial nephritis the patient takes 16 NSAIDs a day. Also risk for diabetic, hypertensive disease. Agree with stopping ADRIANA in addition. -urine reviewed w/ blood and protein- likely from dm- has ur alb/ cr 2863- will however, send serologies -check ldh, retic count, haptaglobin - continue to monitor renal fxn - Cr 2.7 today 2. Severe hypertension: To be concerned about a hypertensive TMA he is anemic however does not have significant thrombocytopenia. Will try to treat his blood pressure without using a adriana-i or arb Patient is on a Cardene drip. wean off cardene Will add amlodipine, can inc beta-rustam. No ADRIANA inhibitor's or ARB with severe hyperkalemia and acute kidney injury. 3. Hyponatremia improved 4. Hyperkalemia from acute kidney injury using a [facility] [place] and potassium supplements. Stop ADRIANA intervention and potassium supplements monitor chemistries every 4 hours. Monitor with Bumex. 5. Anemia -replace iron await electrophoresis and immunofixation given renal insufficiency and acute kidney injury. 6. replace vit d . 7. Diabetic control -f/u echo. Will follow the patient closely along with you. The patient was seen and examined using A/V equipment and a nurse at the telehealth visit. The patient consents to telehealth and to hemodialysis if necessary. Plan See above Attestations 2 Medical Necessity Statement*: per cintia Coding Level of Care Code Acute Code for Chg Fwd Diagnoses Acute hyperkalemia E87.5
--- NOTE | 2023-12-18 14:02 | PC.SOCIAL ---
IMM Update pg 2 of IMM updated and reviewed w/ patient. Copy provided and copy dated, initialed and placed in chart.
--- NOTE | 2023-12-18 14:11 | PICC.NOTE ---
24 hour dressing change to left upper arm completed using sterile technique. Small amount old bloody drainage noted on gauze dressing. Insertion site cleaned with CHG. Biopatch applied. Secured with stat-lock and Sorbaview TSM. No significant bleeding or bruising noted. Pt tolerated well. Report given to bedside nurseEstrada.
[2023-12-18 21:21] LABS: Glucose Point of Care 204 mg/dL (70-110)
[2023-12-18 21:24] LABS: Glucose Point of Care 250 mg/dL (70-110)
[2023-12-18 21:57] LABS: Glucose Point of Care 349 mg/dL (70-110)
[2023-12-18] MEDS: trazodone 150 mg Tablet PO (21:58)
[2023-12-18] MEDS: insulin glargine 100 units/1 mL 10 UNIT SUBCUT (21:58)
[2023-12-18] MEDS: acetaminophen 500 mg Tablet PO (23:05)
[2023-12-19] VITALS (18 sets, daily range): BP systolic 157–217; BP diastolic 54–93; PULSE 65–101; RESP 13–30; TEMP 36.4–36.6; O2SAT 91–97; BMI 47.2
[2023-12-19 01:45] LABS: ANCA Screen NEGATIVE (NEGATIVE)
[2023-12-19 05:42] LABS: Basophils # 0.1 10^3/uL (0.0-0.1); Basophils % 0.5 %; Eosinophils # 0.2 10^3/uL (0.0-0.8); Eosinophils % 2.4 %; Hematocrit 26.7 % (37-53); Lymphocytes % 21.5 %; Mean Corpuscular HGB Conc 31.1 g/dL (30-55); Mean Corpuscular Volume 90.2 fl (82-101); Mean Platelet Volume 10.4 fL (7.4-10.4); Monocytes # 1.1 10^3/uL (0.2-0.9); Monocytes % 11.1 %; Neutrophils # 6.08 10^3/uL (1.8-7.7); Nucleated Red Blood Cells % 0 %; Platelet Count 226 10^3/cmm (157-399); Red Blood Count 2.96 10^6/uL (3.85-5.65); Red Cell Distribution Width 13.6 % (12.1-15.1)
[2023-12-19 06:01] LABS: Magnesium 2.1 mg/dL (1.7-2.3); Phosphorus 4.7 mg/dL (2.5-4.5)
[2023-12-19 06:03] LABS: Blood Urea Nitrogen 57 mg/dL (8-23); Calcium 8.5 mg/dL (8.5-10.5); Carbon Dioxide 27 mmol/L (22-29); Chloride 99 mmol/L (98-107); Creatinine Clr Calc Pharmacy 49.1003; Glomerular Filtration Rate 28.4 mL/min (90-130); Glucose 168 mg/dL (65-115); Osmolality Calculated 308 mOsm/kg (285-295); Sodium 139 mmol/L (136-145)
[2023-12-19 06:04] LABS: Anion Gap 17.3 (5-19); Potassium 4.3 mmol/L (3.5-5.1)
[2023-12-19] MEDS: heparin 5,000 unit/mL INJ 1 mL 5000 UNIT SUBCUT (06:28)
[2023-12-19] MEDS: amlodipine 10 mg Tablet PO (08:32)
[2023-12-19] MEDS: pantoprazole DR 40 mg Tablet PO (08:32)
[2023-12-19] MEDS: levothyroxine 25 mcg Tablet PO (08:32)
[2023-12-19] MEDS: tamsulosin 0.4 mg Capsule PO (08:32)
[2023-12-19] MEDS: doxycycline 100 mg Tablet PO (08:32)
[2023-12-19] MEDS: isosorbide mononitrate ER 30 mg Tablet PO (08:32)
[2023-12-19] MEDS: hyDRALAzine 50 mg Tablet PO (08:33)
[2023-12-19] MEDS: metoprolol tartrate 25 mg Tablet 50 MG PO (08:36)
[2023-12-19 08:55] LABS: Glucose Point of Care 272 mg/dL (70-110)
[2023-12-19] MEDS: insulin lispro 100 unit/1 mL SUBCUT ×2 (08:55→15:23)
[2023-12-19] MEDS: bumetanide 1 mg Tablet PO (08:55)
[2023-12-19] MEDS: cefTRIAXone 1,000 MG in sodium chloride 0.9% (plus) 50 ML 100 MG IV (08:55)
[2023-12-19] MEDS: ferric gluconate 125 MG in sodium chloride 0.9% (100 ml) 100 ML 100 MG IV (09:30)
[2023-12-19] MEDS: pramipexole 0.25 mg Tablet PO (10:21)
[2023-12-19] MEDS: hyDRALAzine 20 mg/mL INJ 1 mL 10 MG IVP (10:43)
[2023-12-19] MEDS: nystatin powder 15 gm Btl 1 APPLIC TOPICAL (11:07)
[2023-12-19 11:55] LABS: Glucose Point of Care 199 mg/dL (70-110)
--- NOTE | 2023-12-19 12:24 | P.DS_ITS ---
Discharge Providers Date of Admission: 12/16/23 02:00 Date of Discharge: December 19, 2023 Attending Provider at Admission: Daksha العلي MD Attending Provider at Discharge: Gopal Bills MD Primary Care Provider: Rachel Bills MD Diagnoses at Discharge Discharge Diagnosis (1) Acute hyperkalemia: Status: Acute Reason for Visit Reason for Visit: SOB Hospital Course Hospital Course Juan is a 68-year-old white male who presented to the hospital with significant renal failure and hyperkalemia. He was concern of pneumonia as well, and he had significant heart failure with fluid overload. He was placed in the ICU, and treatment for hyperkalemia ensued. A catheter was placed, and he was placed on IV diuretics. Ultimately with treatment potassium came down. Renal function slowly improved. There was no evidence of obstruction on scan. Pneumonia was treated with Rocephin, and doxycycline. He continued to improve until 12/18 which he was thought to be stable to be discharged from the hospital to nursing facility for rehab. At that time he was on 3 L of oxygen which was his baseline. His edema is markedly improved. He has been transition to oral Bumex. He will complete 5 days more of antibiotics, and should have follow-up lab in 3 to 5 days at the nursing facility. Multiple medication changes were made, and he should avoid any renal toxic medication. He was given opportunity ask questions, and agrees with the plan. An echocardiogram was also performed and the patient was in the hospital this demonstrated 3/4 diastolic dysfunction, and preserved EF. Physical Exam Narrative: General exam no distress Neck is supple Cardiovascular regular in rhythm Lungs clear Abdomen soft Extremities no cyanosis clubbing. Trace edema is present bilaterally. Urinary Catheter Management: Briceño: Cath Placed During This Visit: yes, but has since been removed by the nurse Reason for Continuing Indwelling Catheter: Decision to DC Catheter Urinary Catheter Date of Insertion: 12/16/23 Urinary Catheter Time of Insertion: 05:04 Date Urinary Catheter Removed: 12/19/23 Time Urinary Catheter Discontinued: 10:58 Discharge Data Studies Completed and Pending Completed Studies During Hospitalization Category Date Time Status CT kidney stone 03072 Stat Cat Scan 12/15/23 21:17 Completed CXRP [XR chest 1V portable [id number]] Routine Exams 12/17/23 07:27 Completed XR chest 1V portable [id number] Stat Exams 12/15/23 18:52 Completed CV. echo complete* [id number] Routine Ultrasound 12/16/23 07:02 Completed Pending at discharge Category Date Time Status Blood Culture Stat Lab 12/15/23 22:30 Results Glomerular Basement AB IGG Routine Lab 12/17/23 08:09 Received Radiology Impressions Abdomen/Pelvis CT 12/15/23 21:17 IMPRESSION: 1. No acute findings. COMMENTS: Consistent with the [employer]'s Incidental Findings Committee white paper (J Am Ivon Radiol 2017): For any incidental adrenal lesion greater than or equal to 1 cm but less than or equal to 4 cm classified in this report as benign, likely benign, or containing fat (including classification as an adenoma or myelolipoma), no follow-up imaging is recommended per consensus recommendations based on imaging criteria. Further lab evaluation could be pursued if warranted based on clinical findings. Chest X-Ray 12/17/23 07:27 IMPRESSION: Satisfactory positioning LEFT PICC line. Laboratory Results WBC 9.50 10^3/uL (3.29-11.43) 12/19/23 04:19 RBC 2.96 10^6/uL (3.85-5.65) L 12/19/23 04:19 Hgb 8.30 g/dL (11.27-16.99) L 12/19/23 04:19 Hct 26.7 % (37-53) L 12/19/23 04:19 MCV 90.2 fl (82-101) 12/19/23 04:19 MCH 28.0 pg (27-33) 12/19/23 04:19 MCHC 31.1 g/dL (30-55) 12/19/23 04:19 RDW 13.6 % (12.1-15.1) 12/19/23 04:19 Plt Count 226 10^3/cmm (157-399) 12/19/23 04:19 MPV 10.4 fL (7.4-10.4) 12/19/23 04:19 Neut % (Auto) 64.0 % 12/19/23 04:19 Lymph % (Auto) 21.5 % 12/19/23 04:19 [place] % (Auto) 11.1 % 12/19/23 04:19 Eos % (Auto) 2.4 % 12/19/23 04:19 Baso % (Auto) 0.5 % 12/19/23 04:19 Reticulocyte % (Auto) 2.7 % (0.5-2.0) H 12/17/23 03:20 Neut # (Auto) 6.08 10^3/uL (1.8-7.7) 12/19/23 04:19 Lymph # (Auto) 2.0 10^3/uL (0.8-4.8) 12/19/23 04:19 [place] # (Auto) 1.1 10^3/uL (0.2-0.9) H 12/19/23 04:19 Eos # (Auto) 0.2 10^3/uL (0.0-0.8) 12/19/23 04:19 Baso # (Auto) 0.1 10^3/uL (0.0-0.1) 12/19/23 04:19 Nucleated RBC % (auto) 0 % 12/19/23 04:19 Nucleated RBCs # 0.0 /100WBC 12/19/23 04:19 Haptoglobin 249.0 mg/L (30-200) H 12/17/23 03:20 PT 16.10 SECONDS (12.1-14.9) H 12/16/23 13:15 INR 1.24 (0.8-1.2) H 12/16/23 13:15 APTT 25.7 SECONDS (23.9-36.7) 12/16/23 13:15 Specimen Type Arterial 12/15/23 19:25 Sample Site Radial, left 12/15/23 19:25 ABG pH 7.40 (7.35-7.45) 12/15/23 19:25 ABG pCO2 44.6 mmHg (35-45) 12/15/23 19:25 ABG pO2 88.8 mmHg (80.0-100.0) 12/15/23 19:25 ABG HCO3 27.5 mmol/L (22-26) H 12/15/23 19:25 ABG Base Excess 2.3 mmol/L (-2.0-2.0) H 12/15/23 19:25 Matthew Test Pos 12/15/23 19:25 Hematocrit 27.9 % (42-52) L 12/15/23 19:25 Hgb O2 Saturation 92.9 % (95-100) L 12/15/23 19:25 Carboxyhemoglobin 3.5 %THgb (0.4-20.1) 12/15/23 19:25 Methemoglobin 0.5 % (0.4-1.5) 12/15/23 19:25 Total Hemoglobin 9.1 g/dL (14-18) L 12/15/23 19:25 O2 Delivery Device Nc 12/15/23 19:25 O2 Liters/Min 3.0 % 12/15/23 19:25 Busperson ID Cl 12/15/23 19:25 Sodium 139 mmol/L (136-145) 12/19/23 04:19 Potassium 4.3 mmol/L (3.5-5.1) 12/19/23 04:19 Chloride 99 mmol/L (98-107) 12/19/23 04:19 Carbon Dioxide 27 mmol/L (22-29) 12/19/23 04:19 Anion Gap 17.3 (5-19) 12/19/23 04:19 BUN 57 mg/dL (8-23) H 12/19/23 04:19 Creatinine 2.3 mg/dL (0.7-1.2) H 12/19/23 04:19 GFR Calculation 28.4 mL/min (90-130) L 12/19/23 04:19 Glucose 168 mg/dL (65-115) H 12/19/23 04:19 POC Glucose 199 mg/dL (70-110) H 12/19/23 11:52 Calculated Osmolality 308 mOsm/kg (285-295) H 12/19/23 04:19 Lactic Acid 0.9 mmol/L (0.5-2.2) 12/15/23 20:06 Lactate 2.9 mmol/L (0.5-2.2) H 12/16/23 09:41 Uric Acid 9.7 mg/dL (3.4-7.0) H 12/17/23 03:20 Calcium 8.5 mg/dL (8.5-10.5) 12/19/23 04:19 Phosphorus 4.7 mg/dL (2.5-4.5) H 12/19/23 04:19 Magnesium 2.1 mg/dL (1.7-2.3) 12/19/23 04:19 Iron 34 ug/dL (59-158) L 12/17/23 03:20 TIBC 333 mcg/dl 12/17/23 03:20 % Saturation 10.2 % (20-50) L 12/17/23 03:20 Unsat Iron Binding 299 ug/dL (112-347) 12/17/23 03:20 Ferritin 68 ng/mL (30-400) 12/17/23 03:20 Total Bilirubin 0.2 mg/dL (0.15-1.2) 12/18/23 03:46 AST 17 U/L (0-40) 12/18/23 03:46 ALT 11 U/L (0-41) 12/18/23 03:46 Alkaline Phosphatase 125 U/L (40-130) 12/18/23 03:46 Lactate Dehydrogenase 183 U/L (135-225) 12/17/23 03:20 Creatine Kinase 152 U/L (39-308) 12/16/23 03:43 Troponin T Baseline 99 ng/L (0-15) H 12/16/23 03:41 Troponin T 120 Minute 84.86 ng/L (0-15) H 12/16/23 07:12 Delta Troponin T -14.14 ABS# (0-10) L 12/16/23 07:12 Troponin T Hi Sens 6Hr 88.58 ng/L (0-15) H 12/16/23 09:41 Troponin T Hi Sens 6Hr Delta -10.42 ng/L (0-12) L 12/16/23 09:41 NT-Pro-B Natriuret Pep 3067 pg/mL (0-125) H 12/15/23 20:06 Total Protein 6.1 g/dL (6.6-8.7) L 12/18/23 03:46 Albumin 3.3 g/dL (3.5-5.2) L 12/18/23 03:46 Globulin 2.8 g/dL (1.3-4.6) 12/18/23 03:46 25-OH Vitamin D Total 6 ng/mL (30-100) L 12/17/23 03:20 TSH 0.51 uIU/mL (0.27-4.20) 12/16/23 03:43 PTH Intact 81.0 pg/mL (15-65) H 12/17/23 03:20 Calcium (PTH Intact) 8.9 mg/dL (8.5-10.5) 12/17/23 03:20 Urine Color Red (Yellow) A 12/16/23 14:50 Urine Appearance Turbid (CLEAR) A 12/16/23 14:50 Urine pH 6 (5-7) 12/16/23 14:50 Ur Specific [place] 1.010 (1.005-1.030) 12/16/23 14:50 Urine Protein 3+ (Negative) H 12/16/23 14:50 Urine Glucose (UA) 1+ (Normal) H 12/16/23 14:50 Urine Ketones 1+ (Negative) H 12/16/23 14:50 Urine Blood 3+ (Negative) H 12/16/23 14:50 Urine Nitrate Negative (Negative) 12/16/23 14:50 Urine Bilirubin Neg (Negative) 12/16/23 14:50 Urine Urobilinogen Norm mg/dL (Negative) 12/16/23 14:50 Ur Leukocyte Esterase 2+ (Negative) H 12/16/23 14:50 Urine RBC Too numerous to cnt /hpf (0-2) H 12/16/23 14:50 Urine WBC 11-20 /hpf (0-5) 12/16/23 14:50 Ur Squamous Epith Cells 0-4 /hpf (0-5) H 12/16/23 14:50 Amorphous Sediment Not Reportable 12/16/23 14:50 Urine Bacteria Trace /hpf (NONE) 12/16/23 14:50 Ur Random Microalbumin 229 ug/dL (0-20) H 12/16/23 14:50 U Random Total Protein 341 mg/dL 12/16/23 14:50 Ur Random Sodium 45 mmol/L 12/16/23 14:50 Ur Random Sodium Cancelled 12/16/23 14:50 Ur Random Potassium 44 mmol/L 12/16/23 14:50 Ur Random Chloride 34 mmol/L 12/16/23 14:50 Urine Creatinine 80 mg/dL (39-259) 12/16/23 14:50 Urine Creatinine 80 mg/dL (39-259) 12/16/23 14:50 Microalb/Creat Ratio 2863 mg/dL (0-20) H 12/16/23 14:50 CALOS Screen Negative (NEGATIVE) 12/16/23 09:41 ANCA Screen Negative (NEGATIVE) 12/16/23 09:41 ANCA Titer Not Reportable 12/16/23 09:41 Anti-ds DNA IgG Ab 2 IU/mL 12/16/23 09:41 Complement C3 153 mg/dL (90-180) 12/16/23 03:43 Complement C4 29 mg/dL (10-40) 12/16/23 03:43 Adenovirus (PCR) Not detected (NOT DETECT) 12/15/23 19:24 C. pneumoniae DNA (PCR) Not detected (NOT DETECT) 12/15/23 19:24 Coronavirus 229E (PCR) Not detected (NOT DETECT) 12/15/23 19:24 Hepatitis C Antibody Non-reactive (Nonreactive) 12/16/23 03:43 Human Metapneumovir PCR Not detected (NOT DETECT) 12/15/23 19:24 Influenza A (H1) PCR Not detected (NOT DETECT) 12/15/23 19:24 Influ A (H1/09) PCR Not detected (NOT DETECT) 12/15/23 19:24 Influenza A (H3) PCR Not detected (NOT DETECT) 12/15/23 19:24 Influenza Type A (PCR) Not detected (NOT DETECT) 12/15/23 19:24 Influenza Type B (PCR) Not detected (NOT DETECT) 12/15/23 19:24 M. pneumoniae (PCR) Not detected (NOT DETECT) 12/15/23 19:24 Parainfluenza 1 (PCR) Not detected (NOT DETECT) 12/15/23 19:24 Parainfluenza 2 (PCR) Not detected (NOT DETECT) 12/15/23 19:24 Parainfluenza 3 (PCR) Not detected (NOT DETECT) 12/15/23 19:24 Parainfluenza 4 (PCR) Not detected (NOT DETECT) 12/15/23 19:24 RSV Type A (PCR) Not detected (NOT DETECT) 12/15/23 19:24 RSV Type B (PCR) Not detected (NOT DETECT) 12/15/23 19:24 Entero/Rhino (PCR) Not detected (NOT DETECT) 12/15/23 19:24 SARS-CoV-2 (PCR) Not detected (NOT DETECT) 12/15/23 19:24 MRSA (PCR) Detected (NOT DETECTED) A 12/16/23 14:50 Vitals Last Vital Signs Temp 97.6 F 12/19/23 05:00 Pulse 80 12/19/23 11:00 Resp 18 12/19/23 11:00 BP 209/81 12/19/23 11:00 Pulse Ox 94 12/19/23 09:19 O2 Del Method Nasal Cannula 12/19/23 09:19 O2 Flow Rate 2 12/19/23 09:19 FiO2 32 12/16/23 23:15 Discharge Plan Discharge Patient Disposition: Xfer SNF Condition: Stable Prescriptions: New ipratropium-albuterol 0.5 mg-3 mg(2.5 mg base)/3 mL Solution For Nebulization 3 ml inhalation Q6H PRN (Reason: Shortness Of Breath) Qty: 280 0RF nystatin [Nystop] 100,000 unit/gram Powder 1 applic topical BID Qty: 60 0RF amlodipine 10 mg Tablet 10 mg PO DAILY Qty: 30 0RF cefdinir 300 mg capsule 300 mg PO BID 5 Days Qty: 10 0RF doxycycline monohydrate 100 mg Tablet 100 mg PO BID Qty: 10 0RF pramipexole 0.25 mg Tablet 0.25 mg PO TID PRN (Reason: Restless Leg Syndrome) Qty: 90 0RF metoprolol tartrate 25 mg Tablet 50 mg PO BID@0900,2100 Qty: 120 0RF pantoprazole 40 mg Tablet,Delayed Release (Dr/Ec) 40 mg PO BID Qty: 60 0RF isosorbide mononitrate 30 mg Tablet Extended Release 24 Hr 30 mg PO BID Qty: 60 0RF hydralazine 50 mg Tablet 50 mg PO TID Qty: 90 0RF bumetanide 1 mg Tablet 1 mg PO BID Qty: 60 0RF Continued omeprazole 20 mg capsule,delayed release(DR/EC) 20 mg PO DAILY sertraline 100 mg tablet 100 mg PO QAM clonazepam 1 mg tablet 0.5 mg PO BEDTIME PRN (Reason: Sleep) insulin aspart U-100 [Novolog FlexPen U-100 Insulin] 100 unit/mL (3 mL) insulin pen See Rx Instructions .ROUTE .COMPLEX Rx Instructions: sliding scale subcutaneously before meals levothyroxine 25 mcg tablet 25 mcg PO DAILY levocetirizine 5 mg tablet 5 mg PO DAILY FeroSul 325 mg (65 mg iron) tablet 325 mg PO BID silver sulfadiazine [Silvadene] 1 % cream 1 applic topical BID Qty: 50 0RF Rx Instructions: apply a 1.5 mm thickness simvastatin 10 mg tablet 10 mg PO DAILY tamsulosin 0.4 mg capsule 0.4 mg PO DAILY Changed Lantus Solostar U-100 Insulin 100 unit/mL (3 mL) insulin pen 20 unit SUBCUT BID Qty: 10 0RF Discontinued potassium chloride 10 mEq tablet extended release 10 meq PO DAILY furosemide 40 mg tablet 40 mg PO DAILY lisinopril 20 mg tablet 20 mg PO DAILY metoprolol tartrate 50 mg tablet 50 mg PO DAILY pramipexole 0.125 mg tablet 0.25 mg PO DAILY metformin 500 mg tablet extended release 24 hr 500 mg PO DAILY gabapentin 300 mg Capsule 300 mg PO TID trazodone 150 mg Tablet 150 mg PO BEDTIME bumetanide 1 mg tablet 1 mg PO DAILY spironolactone 50 mg tablet 50 mg PO DAILY Discharge Orders: Discharge Order (Routine); Ordered 12/19/23 Ordered By: Gopal Bills Referrals: [facility] [Outside] Rachel Bills MD [Primary Care Provider] - Discharge Diet: Cardiac and Diabetic Discharge Activity: Increase activity as tolerated Activity Restrictions/Additional Instructions: Oxygen 3 L per nasal cannula titrate for sat greater than equal to 90% CBC and BMP on Saturday Take all medicine as prescribed Discharge Attestations Time Spent in Discharge Care*: greater than 30 min Quality Metrics Clinical Quality Measures [ No reported AMI, CVA or VTE this stay] Coding Level of Care Code 54825 Total time (in minutes) for Discharge: 43 Diagnoses Acute hyperkalemia E87.5
[2023-12-19 15:00] LABS: Glomerular Bsmt Membrane IGG <1.0 AI
--- NOTE | 2023-12-19 16:28 | PC.NURSE ---
report called to [facility] nurse Ellie Manzo LPN , sent per taxi after picc removed whole and intact voided freely
--- NOTE | 2023-12-19 18:28 | P.PN_ITS ---
Subjective 2 Subjective: no new complaints Medications: Reviewed: Yes Vitals/I&O/Wt Last Vital Signs Temp 97.6 F 12/19/23 05:00 Pulse 92 12/19/23 16:36 Resp 18 12/19/23 16:36 BP 167/71 12/19/23 16:36 Pulse Ox 94 12/19/23 09:19 O2 Del Method Nasal Cannula 12/19/23 09:19 O2 Flow Rate 2 12/19/23 09:19 FiO2 32 12/16/23 23:15 12/19/23 12/19/23 12/19/23 06:59 14:59 22:59 Intake Total 750 / 750 Output Total 801 / 3651 3351 / 3351 Balance -801 / -2263.084 -2601 / -2601 Weight last 48 hrs Weight 162.477 kg Weight 162.477 kg Physical Exam 2 Narrative: Obese man sitting in chair, NARD Vital signs noted on cardene and bumex drips HEENT normocephalic atraumatic. Neck is supple Lungs dull bases , improved air movement b/l. Heart regular positive S1-S2. Abdomen soft positive bowel sounds. Extremities 1+ edema improving b/l Patient has a Briceño catheter. Neuro awake alert oriented x 3. Urinary Catheter Management: Briceño: Cath Placed During This Visit: yes, but has since been removed by the nurse Reason for Continuing Indwelling Catheter: Decision to DC Catheter Urinary Catheter Date of Insertion: 12/16/23 Urinary Catheter Time of Insertion: 05:04 Date Urinary Catheter Removed: 12/19/23 Time Urinary Catheter Discontinued: 10:58 Data 12/19/23 04:19 12/19/23 04:19 Micro: Microbiology 12/16/23 19:35 Gram Stain - Final Sputum - Expectorated Sputum Sputum Culture - Final A&P Assessment and plan (1) Acute hyperkalemia: 68-year-old gentleman with heart failure preserved EF, GI bleed, home O2 dependent, diabetes, sleep apnea, obesity. The patient is here with weakness and shortness of breath. 1. Acute kidney injury -his labs were reviewed. His creatinine was 1.1 mg to 1.2 mg/dL in 2021. Creatinine of 2 in 2022, and his creatinine is now 2.4 mg/dL. Imaging reviewed without hydronephrosis. Risk for renal dysfunction in this patient can be from interstitial nephritis the patient takes 16 NSAIDs a day. Also risk for diabetic, hypertensive disease. Agree with stopping ADRIANA in addition. -urine reviewed w/ blood and protein- likely from dm- has ur alb/ cr 2863- will however, send serologies -check ldh, retic count, haptaglobin - continue to monitor renal fxn - Cr 2.3 today 2. Severe hypertension: To be concerned about a hypertensive TMA he is anemic however does not have significant thrombocytopenia. Will try to treat his blood pressure without using a adriana-i or arb Patient is on a Cardene drip. wean off cardene Will add amlodipine, can inc beta-rustam. No ADRIANA inhibitor's or ARB with severe hyperkalemia and acute kidney injury. 3. Hyponatremia improved 4. Hyperkalemia from acute kidney injury using a [facility] [place] and potassium supplements. Stop ADRIANA intervention and potassium supplements monitor chemistries every 4 hours. Monitor with Bumex. 5. Anemia -replace iron await electrophoresis and immunofixation given renal insufficiency and acute kidney injury. 6. replace vit d . 7. Diabetic control -f/u echo. Will follow the patient closely along with you. The patient was seen and examined using A/V equipment and a nurse at the telehealth visit. The patient consents to telehealth and to hemodialysis if necessary. Plan See above Attestations 2 Medical Necessity Statement*: per cintia Coding Level of Care Code Acute Code for Chg Fwd Diagnoses Acute hyperkalemia E87.5
== END 2023-12-19 16:10 | disposition skilled nursing facility (03) | DRG 640 ==
LOC: ER 22:41 → ICU 12-16 04:41
PROVIDERS: Internal Medicine; Internal Medicine Nephrology; Admitting Provider Internal Medicine; Emergency Provider Emergency Medicine; PCP Family Medicine; Visit Provider Internal Medicine
DX: E87.5 Hyperkalemia (principal); I50.33 Acute on chronic diastolic (congestive) heart failure; J18.9 Pneumonia, unspecified organism; I13.0 Hypertensive heart and chronic kidney disease with heart failure and stage 1 through stage 4 chronic kidney disease, or unspecified chronic kidney disease; N17.9 Acute kidney failure, unspecified; Z68.42 Body mass index [BMI] 45.0-49.9, adult; N18.9 Chronic kidney disease, unspecified; E11.22 Type 2 diabetes mellitus with diabetic chronic kidney disease; Z11.52 Encounter for screening for COVID-19; Z79.4 Long term (current) use of insulin; Z79.84 Long term (current) use of oral hypoglycemic drugs; E11.65 Type 2 diabetes mellitus with hyperglycemia; F17.210 Nicotine dependence, cigarettes, uncomplicated; I48.91 Unspecified atrial fibrillation; K21.9 Gastro-esophageal reflux disease without esophagitis; N40.0 Benign prostatic hyperplasia without lower urinary tract symptoms; R09.02 Hypoxemia; G25.81 Restless legs syndrome; E66.9 Obesity, unspecified; R79.89 Other specified abnormal findings of blood chemistry; D63.1 Anemia in chronic kidney disease; I16.0 Hypertensive urgency; E87.1 Hypo-osmolality and hyponatremia; G47.30 Sleep apnea, unspecified; F32.A Depression, unspecified
CPT/HCPCS: 36415; 36416; 36573; 36592; 36600; 51702; 71045; 74176; 80048; 80053; 81001; 82044; 82306; 82310; 82436; 82550; 82570; 82728; 82805; 82962; 83010; 83520; 83540; 83550; 83605; 83615; 83735; 83880; 83970; 84100; 84133; 84156; 84300; 84443; 84484; 84550; 85025; 85045; 85610; 85730; 86036; 86038; 86160; 86225; 86803; 87040; 87070; 87077; 87086; 87150; 87186; 87205; 87486; 87581; 87633; 87641; 93005; 93306; 94640; 94660; 96365; 96372; 96375; 96376; 97110; 97116; 97162; 97167; 97530; 97535; 99285; C1751; C9113; J0360; J0456; J0612; J0696; J1644; J1815; J1940; J2916; J2919; J3490; J7050; J7070; J7799; Q3014

== ENCOUNTER 2024-01-24 12:35 | Inpatient (IN) | payer MEDICARE, SELFPAY ==
[2024-01-24] VITALS (16 sets, daily range): BP systolic 110–179; BP diastolic 54–73; PULSE 58–67; RESP 15–19; TEMP 36.4–37; O2SAT 90–98; BMI 50.1; BMI 50.9
--- NOTE | 2024-01-24 13:02 | ED_ITS ---
HPI - Recheck/Abnormal Lab/Rx 2 General: Chief Complaint: Recheck/Abnormal Lab/Rx Stated Complaint: Kidney failure - doctor sent Time Seen by Provider: 01/24/24 12:52 History of Present Illness: Six 68-year-old male presents to the emergency room with complaints of renal failure. Patient has chronic kidney disease they did recently make some changes stopped his metformin decreased another medicine he is not sure which one it was in response to worsening kidney function. He had lab work done either yesterday or today that showed significant worsening is directly over his primary care doctor 1 patient seen initially we do not have the most recent labs done as an outpatient. Denies chest pain or shortness of breath. Related Data Home Medications Medication Instructions Recorded Confirmed clonazepam 1 mg tablet 0.5 mg PO BEDTIME PRN Sleep 08/07/21 12/16/23 insulin aspart U-100 100 unit/mL See Rx Instructions .Route .COMPLEX 08/07/21 12/16/23 (3 mL) subcutaneous pen (Novolog FlexPen U-100 Insulin aspart) sertraline 100 mg tablet 100 mg PO QAM 08/07/21 12/16/23 levocetirizine 5 mg tablet 5 mg PO DAILY 02/16/22 12/16/23 levothyroxine 25 mcg tablet 25 mcg PO DAILY 02/16/22 12/16/23 ferrous sulfate 325 mg (65 mg 325 mg PO BID 03/06/22 12/16/23 iron) tablet (FeroSul) omeprazole 20 mg capsule,delayed 20 mg PO DAILY 04/03/22 12/16/23 release simvastatin 10 mg tablet 10 mg PO DAILY 12/16/23 12/16/23 tamsulosin 0.4 mg capsule 0.4 mg PO DAILY 12/16/23 12/16/23 Previous Rx's Medication Instructions Recorded silver sulfadiazine 1 % topical 1 applic topical BID #50 grams 03/15/23 cream (Silvadene) amlodipine 10 mg tablet 10 mg PO DAILY #30 tabs 12/19/23 bumetanide 1 mg tablet 1 mg PO BID #60 tabs 12/19/23 doxycycline monohydrate 100 mg 100 mg PO BID #10 tabs 12/19/23 tablet hydralazine 50 mg tablet 50 mg PO TID #90 tabs 12/19/23 insulin glargine 100 unit/mL (3 20 unit (0.2 mL) SUBCUT BID #10 mL 12/19/23 mL) subcutaneous pen (Lantus Solostar U-100 Insulin) ipratropium 0.5 mg-albuterol 3 mg 3 ml inhalation Q6H PRN Shortness 12/19/23 (2.5 mg base)/3 mL nebulization Of Breath #280 mL soln isosorbide mononitrate 30 mg 30 mg PO BID #60 tabs 12/19/23 tablet,extended release 24 hr metoprolol tartrate 25 mg tablet 50 mg (2 x 25 mg) PO BID@0900,2100 12/19/23 #120 tabs nystatin 100,000 unit/gram topical 1 applic topical BID #60 grams 12/19/23 powder (Nystop) pantoprazole 40 mg tablet,delayed 40 mg PO BID #60 tabs 12/19/23 release pramipexole 0.25 mg tablet 0.25 mg PO TID PRN Restless Leg 12/19/23 Syndrome #90 tabs Allergies Allergy/AdvReac Type Severity Reaction Status Date / Time No Known Allergies Allergy Verified 03/15/23 17:11 Review of Systems 2 Const: Denies: fever(s) or chills Card: Denies: chest pain Resp: Denies: dyspnea GI: Denies: abdominal pain : Denies: dysuria, urinary frequency or urinary urgency Musc: Denies: neck pain or back pain Skin/Breast: Denies: rash PFSH ED 2 PFSH: Medical History Iron deficiency anemia Brain aneurysm Necrotizing fasciitis of shoulder region Diabetes Surgical History Status post colonoscopy (10/18/21) H/O esophagogastroduodenoscopy (10/18/21) History of shoulder surgery Family History Grandfather Clotting disorder Family/Other CAD (coronary artery disease) Cancer Diabetes Stroke Grandmother CAD (coronary artery disease) Dementia Father Cancer Lung disease Mother Cancer Denies family history of Chronic kidney disease (CKD) Suicide Anesthesia complication Bleeding disorder Social History Smoking and tobacco/nicotine status: current every day tobacco/nicotine user (1 ppd, smoked x 50 years) cigarettes Packs smoked per day: 2 Years cigarettes smoked: 50 [ Other cigarette details: started at age 16] Alcohol intake: never Substance/Drug Use: never Physical Exam 2 Const: GENERAL APPEARANCE: cooperative ORIENTATION/CONSCIOUSNESS: Yes awake, Yes oriented to person, Yes oriented to place and Yes oriented to time HENMT: COMMON NORMALS: normocephalic, atraumatic and hearing grossly normal bilaterally HEAD & SCALP: normocephalic and atraumatic Resp: COMMON NORMALS: normal respiratory effort, No retractions, No use of accessory muscles and clear to auscultation bilaterally AUSCULTATION: clear to auscultation bilaterally Cardio: COMMON NORMALS: regular rate, regular rhythm and No murmurs present (Cardio) RATE: regular rate RHYTHM: regular rhythm GI: COMMON NORMALS: Soft to palpation and No hepatosplenomegaly present A USCULTATION: Yes normoactive bowel sounds PALPATION: Yes Soft to palpation, No Tenderness to palpation present (GI), No Guarding due to palpation present (GI) and Yes No hepatosplenomegaly present OTHER: Hemoccult positive on rectal exam no masses noted on rectal exam normal external rectal sphincter tone Extremity: COMMON NORMALS: capillary refill normal and no calf tenderness G ENERAL: Yes edema (+2) Neuro: SENSORIUM/ORIENTATION: Yes oriented to person, Yes oriented to place and Yes oriented to time Skin: COMMON NORMALS: no rashes or lesions noted GENERAL SKIN EXAM: no rashes or lesions noted Course 2 Vital Signs: Vital signs: Vital Signs Temperature 98.3 F 01/24/24 12:53 Pulse Rate 61 01/24/24 15:56 Respiratory Rate 18 01/24/24 14:37 Blood Pressure 152/69 01/24/24 15:56 Pulse Oximetry 96 01/24/24 15:56 Oxygen Delivery Me thod Room Air 01/24/24 15:23 Oxygen Flow Rate 3 01/24/24 14:37 MDM - Recheck/Abnormal Lab/Rx Medical Decision Making Worsening anemia as well as worsening acute on chronic kidney failure with hyperkalemia. Patient's hyperkalemia treated in the emergency room with calcium chloride albuterol and insulin. Is not having any arrhythmias at this point. Will admit for improvement of renal function and monitoring of potassium for top potential transfusion for anemia. Patient relates he previously had full endoscopy workup for anemia with no findings. Medical Records I reviewed the patient's medical records. Lab Data I reviewed the patient's lab results. 01/24/24 13:05 01/24/24 13:05 Laboratory Results WBC 10.76 10^3/uL (3.29-11.43) 01/24/24 13:05 RBC 2.54 10^6/uL (3.85-5.65) L 01/24/24 13:05 Hgb 7.10 g/dL (11.27-16.99) L 01/24/24 13:05 Hct 23.5 % (37-53) L 01/24/24 13:05 MCV 92.5 fl (82-101) 01/24/24 13:05 MCH 28.0 pg (27-33) 01/24/24 13:05 MCHC 30.2 g/dL (30-55) 01/24/24 13:05 RDW 14.6 % (12.1-15.1) 01/24/24 13:05 Plt Count 189 10^3/cmm (157-399) 01/24/24 13:05 MPV 10.3 fL (7.4-10.4) 01/24/24 13:05 Neut % (Auto) 78.1 % 01/24/24 13:05 Lymph % (Auto) 11.2 % 01/24/24 13:05 [place] % (Auto) 7.3 % 01/24/24 13:05 Eos % (Auto) 2.0 % 01/24/24 13:05 Baso % (Auto) 0.5 % 01/24/24 13:05 Neut # (Auto) 8.40 10^3/uL (1.8-7.7) H 01/24/24 13:05 Lymph # (Auto) 1.2 10^3/uL (0.8-4.8) 01/24/24 13:05 [place] # (Auto) 0.8 10^3/uL (0.2-0.9) 01/24/24 13:05 Eos # (Auto) 0.2 10^3/uL (0.0-0.8) 01/24/24 13:05 Baso # (Auto) 0.1 10^3/uL (0.0-0.1) 01/24/24 13:05 Nucleated RBC % (auto) 0 % 01/24/24 13:05 Nucleated RBCs # 0.0 /100WBC 01/24/24 13:05 Sodium 135 mmol/L (136-145) L 01/24/24 13:05 Potassium 5.5 mmol/L (3.5-5.1) H 01/24/24 13:05 Chloride 100 mmol/L (98-107) 01/24/24 13:05 Carbon Dioxide 25 mmol/L (22-29) 01/24/24 13:05 Anion Gap 15.5 (5-19) 01/24/24 13:05 BUN 48 mg/dL (8-23) H 01/24/24 13:05 Creatinine 2.8 mg/dL (0.7-1.2) H 01/24/24 13:05 GFR Calculation 22.6 mL/min (90-130) L 01/24/24 13:05 Glucose 212 mg/dL (65-115) H 01/24/24 13:05 Calculated Osmolality 299 mOsm/kg (285-295) H 01/24/24 13:05 Calcium 8.3 mg/dL (8.5-10.5) L 01/24/24 13:05 Total Bilirubin 0.2 mg/dL (0.15-1.2) 01/24/24 13:05 AST 14 U/L (0-40) 01/24/24 13:05 ALT 9 U/L (0-41) 01/24/24 13:05 Alkaline Phosphatase 118 U/L (40-130) 01/24/24 13:05 Total Protein 6.3 g/dL (6.6-8.7) L 01/24/24 13:05 Albumin 3.3 g/dL (3.5-5.2) L 01/24/24 13:05 Globulin 3.0 g/dL (1.3-4.6) 01/24/24 13:05 Blood Type O Negative 01/24/24 14:08 Rho(D) Type Rh negative 01/24/24 14:08 Antibody Screen Negative 01/24/24 14:08 Crossmatch See Detail 01/24/24 14:08 All radiology interpretation(s) finalized by discharge Discharge Plan Discharge Patient Disposition: Admitted As Inpatient Admit Provider: Sangeeta Rodriguez Clinical Impression: Acute on chronic renal failure, Acute hyperkalemia, Anemia Condition: Stable Coding Level of Care Code ED Placement Director for Josh Gallego
--- NOTE | 2024-01-24 13:03 | ECG_ITS ---
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 Measurements Intervals [place] Rate: 57 P: 60 VA: 231 QRS: 45 QRSD: 108 T: 69 QT: 411 QTc: 402 Interpretive Statements SINUS BRADYCARDIA WITH FIRST DEGREE AV BLOCK SEPTAL MYOCARDIAL INFARCTION , OF INDETERMINATE AGE [40+ ms Q WAVE IN V1/V2] Compared to ECG 12/16/2023 11:28:58 First degree AV block now present Myocardial infarct finding now present Sinus rhythm no longer present Intraventricular conduction delay no longer present ST (T wave) deviation no longer present Electronically Signed On 01-24-2024 20:03:02 CDT by Bora Gómez M.D. [id number]
[2024-01-24 13:21] LABS: Basophils # 0.1 10^3/uL (0.0-0.1); Basophils % 0.5 %; Eosinophils # 0.2 10^3/uL (0.0-0.8); Hematocrit 23.5 % (37-53); Lymphocytes # 1.2 10^3/uL (0.8-4.8); Lymphocytes % 11.2 %; Mean Corpuscular HGB Conc 30.2 g/dL (30-55); Mean Corpuscular Volume 92.5 fl (82-101); Mean Platelet Volume 10.3 fL (7.4-10.4); Monocytes # 0.8 10^3/uL (0.2-0.9); Monocytes % 7.3 %; Neutrophils % 78.1 %; Nucleated Red Blood Cells % 0 %; Platelet Count 189 10^3/cmm (157-399); Red Blood Count 2.54 10^6/uL (3.85-5.65); Red Cell Distribution Width 14.6 % (12.1-15.1); White Blood Count 10.76 10^3/uL (3.29-11.43)
[2024-01-24 13:45] LABS: Alanine Aminotransferase 9 U/L (0-41); Albumin Level 3.3 g/dL (3.5-5.2); Alkaline Phosphatase 118 U/L (40-130); Anion Gap 15.5 (5-19); Aspartate Amino Transferase 14 U/L (0-40); Blood Urea Nitrogen 48 mg/dL (8-23); Calcium 8.3 mg/dL (8.5-10.5); Carbon Dioxide 25 mmol/L (22-29); Chloride 100 mmol/L (98-107); Glomerular Filtration Rate 22.6 mL/min (90-130); Glucose 212 mg/dL (65-115); Osmolality Calculated 299 mOsm/kg (285-295); Potassium 5.5 mmol/L (3.5-5.1); Sodium 135 mmol/L (136-145); Total Bilirubin 0.2 mg/dL (0.15-1.2); Total Protein 6.3 g/dL (6.6-8.7)
[2024-01-24] MEDS: sodium chloride 0.9% 1,000 ML 999 ML IV (13:48)
[2024-01-24] MEDS: calcium chloride 10% Syr 10 mL 1 GM IVP (14:15)
[2024-01-24] MEDS: insulin regular-human 100 units/1 mL 10 UNIT IVP (14:19)
[2024-01-24] MEDS: albuterol 2.5 mg/3 mL Neb 10 MG INHALATION (14:24)
--- NOTE | 2024-01-24 15:51 | P.HP_ITS ---
Providers/Chief Complaint 2 Admitting Physician: Sangeeta Rodriguez MD Primary Care Provider: Rachel Bills MD Chief Complaint: Kidney failure - doctor sent History of Present Illness Juan Thomas is a 68 year old male with history of diabetes, insulin- dependent, no history of cardiomyopathy however takes diuretics, hypertension, lives alone, presented from home when PCP called him because of abnormal labs of hyperkalemia and anemia. Patient is stating that he has not noticed any chest pain, fever, diarrhea. He has noticed that he is gaining weight and he is weight has worsened in last 1 month, he is denying previous history of stent placed or heart attack. In the past he had received blood, stating that he has undergone capsule endoscopy and colonoscopy and no active GI bleed was found anywhere he is not sure why he had anemic episodes in the past Review of Systems 2 Const: Denies: fever(s) Eyes: Denies: change in vision ENMT: Denies: throat pain Card: Reports: swelling of feet/ankles Resp: Reports: dyspnea GI: Denies: abdominal pain : Denies: flank pain Musc: Reports: back pain and extremity pain Medications/Allergies Home Medications Medication Instructions Recorded Confirmed Last Taken Type clonazepam 1 mg tablet 0.5 mg PO BEDTIME PRN Sleep 08/07/21 12/16/23 10/17/21 History insulin aspart U-100 100 unit/mL See Rx Instructions .Route .COMPLEX 08/07/21 12/16/23 12/15/23 History (3 mL) subcutaneous pen (Novolog FlexPen U-100 Insulin aspart) sertraline 100 mg tablet 100 mg PO QAM 08/07/21 12/16/23 12/15/23 History levocetirizine 5 mg tablet 5 mg PO DAILY 02/16/22 12/16/23 12/15/23 History levothyroxine 25 mcg tablet 25 mcg PO DAILY 02/16/22 12/16/23 12/15/23 History ferrous sulfate 325 mg (65 mg 325 mg PO BID 03/06/22 12/16/23 12/15/23 History iron) tablet (FeroSul) omeprazole 20 mg capsule,delayed 20 mg PO DAILY 04/03/22 12/16/23 12/15/23 History release silver sulfadiazine 1 % topical 1 applic topical BID #50 grams 03/15/23 12/16/23 Unknown Rx cream (Silvadene) simvastatin 10 mg tablet 10 mg PO DAILY 12/16/23 12/16/23 12/15/23 History tamsulosin 0.4 mg capsule 0.4 mg PO DAILY 12/16/23 12/16/23 12/15/23 History amlodipine 10 mg tablet 10 mg PO DAILY #30 tabs 12/19/23 Unknown Rx bumetanide 1 mg tablet 1 mg PO BID #60 tabs 12/19/23 Unknown Rx doxycycline monohydrate 100 mg 100 mg PO BID #10 tabs 12/19/23 Unknown Rx tablet hydralazine 50 mg tablet 50 mg PO TID #90 tabs 12/19/23 Unknown Rx insulin glargine 100 unit/mL (3 20 unit (0.2 mL) SUBCUT BID #10 mL 12/19/23 12/16/23 12/15/23 Rx mL) subcutaneous pen (Lantus Solostar U-100 Insulin) ipratropium 0.5 mg-albuterol 3 mg 3 ml inhalation Q6H PRN Shortness 12/19/23 Unknown Rx (2.5 mg base)/3 mL nebulization Of Breath #280 mL soln isosorbide mononitrate 30 mg 30 mg PO BID #60 tabs 12/19/23 Unknown Rx tablet,extended release 24 hr metoprolol tartrate 25 mg tablet 50 mg (2 x 25 mg) PO BID@0900,2100 12/19/23 Unknown Rx #120 tabs nystatin 100,000 unit/gram topical 1 applic topical BID #60 grams 12/19/23 Unknown Rx powder (Nystop) pantoprazole 40 mg tablet,delayed 40 mg PO BID #60 tabs 12/19/23 Unknown Rx release pramipexole 0.25 mg tablet 0.25 mg PO TID PRN Restless Leg 12/19/23 Unknown Rx Syndrome #90 tabs Allergies Allergy/AdvReac Type Severity Reaction Status Date / Time No Known Allergies Allergy Verified 03/15/23 17:11 PFSH Acute 2 PFSH: Medical History Iron deficiency anemia Brain aneurysm Necrotizing fasciitis of shoulder region Diabetes Surgical History Status post colonoscopy (10/18/21) H/O esophagogastroduodenoscopy (10/18/21) History of shoulder surgery Family History Grandfather Clotting disorder Family/Other CAD (coronary artery disease) Cancer Diabetes Stroke Grandmother CAD (coronary artery disease) Dementia Father Cancer Lung disease Mother Cancer Denies family history of Chronic kidney disease (CKD) Suicide Anesthesia complication Bleeding disorder Social History Smoking and tobacco/nicotine status: current every day tobacco/nicotine user (1 ppd, smoked x 50 years) cigarettes Packs smoked per day: 2 Years cigarettes smoked: 50 [ Other cigarette details: started at age 16] Alcohol intake: never Substance/Drug Use: never Vitals/I&O/Wt Last Vital Signs Temp 98.3 F 01/24/24 12:53 Pulse 66 01/24/24 15:23 Resp 18 01/24/24 14:37 BP 145/70 01/24/24 15:23 Pulse Ox 94 01/24/24 15:23 O2 Del Method Room Air 01/24/24 15:23 O2 Flow Rate 3 01/24/24 14:37 Weight last 48 hrs Weight 172.365 kg Physical Exam 2 Narrative: Congestive heart failure Anasarca Lower extremity venous stasis dermatitis Nonpurulent cellulitis Pleasant cooperative Currently on 3 L GCS 15 Nonfocal neuroexam Eating supper Data 01/24/24 13:05 01/24/24 13:05 A&P Assessment and plan (1) HTN (hypertension): (2) Heart failure with preserved ejection fraction: (3) Atrial fibrillation: (4) Diabetes mellitus type 2, uncontrolled, with complications: (5) GERD without esophagitis: (6) Acute on chronic renal failure: (7) Acute hyperkalemia: (8) BPH (benign prostatic hyperplasia): (9) Normocytic anemia: (10) Diabetic peripheral neuropathy associated with type 2 diabetes mellitus: (11) Chronic respiratory failure with hypoxia: Plan Anasarca I think this is combination of CHF and chronic kidney disease Will not request echo, it was not recently Previous echo showed preserved action fraction Start Bumex 2 mg IV every 12 hours Patient does not want Briceño catheter placement Acute on chronic anemia Patient is stating that previous Endoscopy and Colonoscopy Were Unremarkable He Has Not Noticed Dark-Colored Stools or Hematemesis Will Give 1 Unit PRBC Check B12 and iron level Could be anemia of chronic disease Acute on chronic kidney disease Hyperkalemia cocktail given Will give Kayexalate as well Recheck BMP Will request nephro consultation Restless leg syndrome continue pramipexole Chronic hypoxia required 3 L of oxygen Poor insight, lives alone, insulin-dependent diabetes Will use consistent carb diet with insulin and sliding scale Hypertension, continue diabetes regimen Full code Attestations 2 Medical Necessity Statement*: AlertMore than 2 midnights anticipated Coding Level of Care Code Acute Code for Chg Fwd Diagnoses HTN (hypertension) I10 Heart failure with preserved ejection fraction I50.30 Atrial fibrillation I48.91 Diabetes mellitus type 2, uncontrolled, with complications GERD without esophagitis K21.9 Acute on chronic renal failure N17.9; N18.9 Acute hyperkalemia E87.5 BPH (benign prostatic hyperplasia) N40.0 Normocytic anemia D64.9 Diabetic peripheral neuropathy associated with type 2 diabetes mellitus E11.42 Chronic respiratory failure with hypoxia J96.11
[2024-01-24] MEDS: sodium chloride 0.9% 500 ML IV (16:44)
[2024-01-24 17:25] LABS: Glucose Point of Care 164 mg/dL (70-110)
[2024-01-24] MEDS: doxycycline 100 mg Tablet PO (17:25)
[2024-01-24] MEDS: pantoprazole 40 mg SDV IVP (17:25)
[2024-01-24] MEDS: isosorbide mononitrate ER 30 mg Tablet PO (17:25)
[2024-01-24] MEDS: sodium chloride 0.9% 100 mL Bag 50 ML IV (17:26)
[2024-01-24] MEDS: bumetanide 0.25 mg/mL SDV 10 mL 2 MG IVP (18:15)
[2024-01-24] MEDS: insulin lispro 100 unit/1 mL SUBCUT ×2 (18:16→21:25)
[2024-01-24] MEDS: sodium polystyrene sulfonate 15 gm/60 mL Btl PO (18:29)
[2024-01-24 19:19] LABS: Blood Urea Nitrogen 48 mg/dL (8-23); Calcium 9.3 mg/dL (8.5-10.5); Carbon Dioxide 26 mmol/L (22-29); Chloride 101 mmol/L (98-107); Glomerular Filtration Rate 24.7 mL/min (90-130); Glucose 173 mg/dL (65-115); Iron 42 ug/dL (59-158); Osmolality Calculated 299 mOsm/kg (285-295); Sodium 136 mmol/L (136-145); Vitamin B12 345 pg/mL (232-1245)
[2024-01-24 19:45] LABS: Charge for UA Resulting for Rev
[2024-01-24 19:49] LABS: Bilirubin Urine Negative (Negative); Blood Urine Negative (Negative); Glucose Urine UA Negative (Normal); Ketones Urine Negative (Negative); Leukocyte Esterase Urine Negative (Negative); Nitrate Urine Negative (Negative); Protein Urine 1+ (Negative); Urine Appearance Clear (CLEAR); Urine Color Yellow (Yellow); Urobilinogen Urine 0.2 mg/dL (Negative)
[2024-01-24 19:51] LABS: Bacteria Urine None Seen /hpf; Hyaline Casts Urine 3.71 /lpf; RBC Urine 0-2 /hpf (0-2); Squamous Epithelial Cell Urine 0-5 /hpf (0-5); WBC Urine 0-5 /hpf (0-5)
[2024-01-24 20:54] LABS: Glucose Point of Care 208 mg/dL (70-110)
[2024-01-24] MEDS: metoprolol tartrate 25 mg Tablet 50 MG PO (21:24)
[2024-01-24] MEDS: hyDRALAzine 50 mg Tablet PO (21:25)
[2024-01-24] MEDS: insulin glargine 100 units/1 mL 20 UNIT SUBCUT (21:25)
[2024-01-24] MEDS: pramipexole 0.25 mg Tablet PO (21:28)
[2024-01-25] VITALS (11 sets, daily range): BP systolic 136–185; BP diastolic 65–81; PULSE 56–62; RESP 16–20; TEMP 36.4–36.8; O2SAT 92–99
[2024-01-25] MEDS: trazodone 150 mg Tablet PO (01:07)
[2024-01-25 04:37] LABS: Basophils # 0.1 10^3/uL (0.0-0.1); Basophils % 0.6 %; Eosinophils # 0.2 10^3/uL (0.0-0.8); Eosinophils % 2.1 %; Hematocrit 26.5 % (37-53); Lymphocytes # 1.6 10^3/uL (0.8-4.8); Lymphocytes % 15.7 %; Mean Corpuscular HGB Conc 28.7 g/dL (30-55); Mean Corpuscular Hemoglobin 28.4 pg (27-33); Mean Corpuscular Volume 98.9 fl (82-101); Mean Platelet Volume 10.1 fL (7.4-10.4); Monocytes # 0.9 10^3/uL (0.2-0.9); Neutrophils # 7.13 10^3/uL (1.8-7.7); Neutrophils % 71.7 %; Nucleated Red Blood Cells % 0 %; Platelet Count 165 10^3/cmm (157-399); Red Blood Count 2.68 10^6/uL (3.85-5.65); Red Cell Distribution Width 14.6 % (12.1-15.1); White Blood Count 9.94 10^3/uL (3.29-11.43)
[2024-01-25 04:55] LABS: Anion Gap 16.7 (5-19); Blood Urea Nitrogen 47 mg/dL (8-23); Calcium 8.3 mg/dL (8.5-10.5); Carbon Dioxide 22 mmol/L (22-29); Chloride 99 mmol/L (98-107); Glomerular Filtration Rate 23.6 mL/min (90-130); Glucose 111 mg/dL (65-115); Magnesium 2.4 mg/dL (1.7-2.3); Osmolality Calculated 289 mOsm/kg (285-295); Potassium 4.7 mmol/L (3.5-5.1); Sodium 133 mmol/L (136-145)
[2024-01-25] MEDS: bumetanide 0.25 mg/mL SDV 10 mL 2 MG IVP ×2 (06:01→17:32)
[2024-01-25 06:46] LABS: Glucose Point of Care 121 mg/dL (70-110)
--- OUTSIDE RECORDS SUMMARY | 2024-01-25 08:37 | XMS_ITS ---
Author Name Unknown Organization [facility] Address [address] [facility] [place] [address] Care Team Providers Care Machinist Set Up Name Role Phone Rachel Bills MD Primary Care Provider UnaAvila Rey [facility] [phone] REASON FOR VISIT Referral Encounters Encounter Location Date Provider Diagnosis [facility] [address] [place] [address] Dr Berger [address] [place] [address] 11/19/2023 Avila Mayorga Plan Of Treatment No Information Progress Notes * Juan GARCIA EDOB: [birth year] (68 yo M)Acc No.[id number]:11/19/2023 Patient:?Juan GARCIA :1955???Age:68 Y???Sex:Male Address:[address] [place] [address], [place], [address] * true * Date:? Generated for Printi ng/Charog/eTransmitting on:?01/25/2024 08:37 AM CDT
--- OUTSIDE RECORDS SUMMARY | 2024-01-25 08:38 | XMS_ITS | Patient Health Record ---
Author Name Unknown Organization [facility] Address [address] [place] [address] Care Team Providers Care Livestock Sales Representative Name Role Phone Rachel Bills MD Primary Care Provider Unava Avila [facility] [phone] Reason For Referral No Information Encounters Encounter Location Date Provider Diagnosis [facility] [address] [place] [address] Dr Berger [address] [place] [address] 11/19/2023 Avila Mayorga Plan Of Treatment No Information Insurance Providers Payer Name Payer Address Payer Phone Subscriber Number Group Number Insured Name Patient Relationship to Insured Coverage Start Date Coverage End Date [employer] Medicare Replacement [address] [address] [place] [address] [id number] Juan Thomas Self - patient is the insured
[2024-01-25] MEDS: metoprolol tartrate 25 mg Tablet 50 MG PO (10:25)
[2024-01-25] MEDS: levothyroxine 25 mcg Tablet PO (10:25)
[2024-01-25] MEDS: doxycycline 100 mg Tablet PO ×2 (10:25→17:32)
[2024-01-25] MEDS: hyDRALAzine 50 mg Tablet PO ×3 (10:25→21:38)
[2024-01-25] MEDS: pantoprazole 40 mg SDV IVP (10:26)
[2024-01-25] MEDS: pramipexole 0.25 mg Tablet PO ×3 (10:26→21:38)
[2024-01-25] MEDS: isosorbide mononitrate ER 30 mg Tablet PO ×2 (10:26→17:32)
--- NOTE | 2024-01-25 11:17 | P.CONIM_ITS ---
Providers/Reason For Consult 2 Consulting Physician/Specialty*: kommana/Nephrology Reason for Consult*: MONCHO on CKD Attending Physician: Dave Kothari MD Primary Care Provider: Rachel Bills MD History of Present Illness History of Present Illness Juan Thomas is a 68 year old male patient is a 68-year-old male with past medical history of diabetes, hypertension hypertension, hospital sent to the emergency department due to abnormal labs including hyperkalemia and anemia. Patient was recently discharged from the hospital about a month ago and during that time was noted to have acute on chronic kidney disease severe anemia. Baseline creatinine was noted to be in the mid 1 range creatinine was 2 range by the time he was discharged last month. He was noted to have proteinuria with an ACR of 2800 serologies was checked at that time. Also patient was noted to be taking NSAIDs and there was possibility of interstitial nephritis was considered and patient has stopped NSAIDs since then. Other lab data is significant for potassium of 5.5, hemoglobin of 7.1 creatinine was 2.8 on presentation. Review of Systems 2 Narrative: Other ROS negative Medications/Allergies Home Medications Medication Instructions Recorded Confirmed Last Taken Type clonazepam 1 mg tablet 0.5 mg PO BEDTIME PRN Sleep 08/07/21 01/24/24 1 Day Ago History ~01/23/24 insulin aspart U-100 100 unit/mL See Rx Instructions .Route .COMPLEX 08/07/21 01/24/24 1 Day Ago History (3 mL) subcutaneous pen (Novolog ~01/23/24 FlexPen U-100 Insulin aspart) sertraline 100 mg tablet 100 mg PO QAM 08/07/21 01/24/24 01/24/24 History levocetirizine 5 mg tablet 5 mg PO DAILY 02/16/22 01/24/24 01/24/24 History levothyroxine 25 mcg tablet 25 mcg PO DAILY 02/16/22 01/24/24 01/24/24 History ferrous sulfate 325 mg (65 mg 325 mg PO BID 03/06/22 01/24/24 01/24/24 History iron) tablet (FeroSul) omeprazole 20 mg capsule,delayed 20 mg PO DAILY 04/03/22 01/24/24 01/24/24 History release silver sulfadiazine 1 % topical 1 applic topical BID #50 grams 03/15/23 01/24/24 01/17/24 Rx cream (Silvadene) simvastatin 10 mg tablet 10 mg PO DAILY 12/16/23 01/24/24 01/24/24 History tamsulosin 0.4 mg capsule 0.4 mg PO DAILY 12/16/23 01/24/24 01/24/24 History amlodipine 10 mg tablet 10 mg PO DAILY #30 tabs 12/19/23 01/24/24 01/24/24 Rx bumetanide 1 mg tablet 1 mg PO BID #60 tabs 12/19/23 01/24/24 01/24/24 Rx doxycycline monohydrate 100 mg 100 mg PO BID #10 tabs 12/19/23 01/24/24 2 Weeks Ago Rx tablet ~01/10/24 hydralazine 50 mg tablet 50 mg PO TID #90 tabs 12/19/23 01/24/24 01/24/24 Rx insulin glargine 100 unit/mL (3 20 unit (0.2 mL) SUBCUT BID #10 mL 12/19/23 01/24/24 2 Days Ago Rx mL) subcutaneous pen (Lantus ~01/22/24 Solostar U-100 Insulin) ipratropium 0.5 mg-albuterol 3 mg 3 ml inhalation Q6H PRN Shortness 12/19/23 01/24/24 01/24/24 Rx (2.5 mg base)/3 mL nebulization Of Breath #280 mL soln isosorbide mononitrate 30 mg 30 mg PO BID #60 tabs 12/19/23 01/24/24 01/24/24 Rx tablet,extended release 24 hr metoprolol tartrate 25 mg tablet 50 mg (2 x 25 mg) PO BID@0900,2100 12/19/23 01/24/24 01/24/24 Rx #120 tabs nystatin 100,000 unit/gram topical 1 applic topical BID #60 grams 12/19/23 01/24/24 01/19/24 Rx powder (Nystop) pantoprazole 40 mg tablet,delayed 40 mg PO BID #60 tabs 12/19/23 01/24/24 01/24/24 Rx release pramipexole 0.25 mg tablet 0.25 mg PO TID PRN Restless Leg 12/19/23 01/24/24 01/24/24 Rx Syndrome #90 tabs Allergies Allergy/AdvReac Type Severity Reaction Status Date / Time No Known Allergies Allergy Verified 03/15/23 17:11 Current Medications Generic Name Dose Route Start Last Admin Trade Name Sadiq PRN Reason Stop Dose Admin Bumetanide 2 mg 01/24/24 18:15 01/25/24 06:01 Bumetanide 0.25 Mg/Ml Sdv 10 Ml IVP 2 mg Q12H ARMANDO Administration Doxycycline Monohydrate 100 mg 01/24/24 18:00 01/25/24 10:25 Doxycycline 100 Mg Tablet PO 100 mg BID ARMANDO Administration Protocol Hydralazine HCl 50 mg 01/24/24 21:00 01/25/24 10:25 Hydralazine 50 Mg Tablet PO 50 mg TID ARMANDO Administration Insulin Glargine 20 unit 01/24/24 21:00 01/24/24 21:25 Insulin Glargine 100 Units/1 Ml SUBCUT 20 unit BEDTIME ARMANDO Administration Insulin Human Lispro 0 unit 01/24/24 18:00 01/25/24 07:57 Insulin Lispro 100 Unit/1 Ml SUBCUT Not Given WM&BEDTIME ARMANDO Protocol Isosorbide Mononitrate 30 mg 01/24/24 18:00 01/25/24 10:26 Isosorbide Mononitrate Er 30 Mg Tablet PO 30 mg BID ARMANDO Administration Levothyroxine Sodium 25 mcg 01/25/24 09:00 01/25/24 10:25 Levothyroxine 25 Mcg Tablet PO 25 mcg DAILY ARMANDO Administration Metoprolol Tartrate 50 mg 01/24/24 21:00 01/25/24 10:25 Metoprolol Tartrate 25 Mg Tablet PO 50 mg BID@0900,2100 ARMANDO Administration Pantoprazole Sodium 40 mg 01/24/24 18:00 01/25/24 10:26 Pantoprazole 40 Mg Sdv IVP 40 mg BID ARMANDO Administration Pramipexole Dihydrochloride 0.25 mg 01/24/24 18:28 01/25/24 10:26 Pramipexole 0.25 Mg Tablet PO 0.25 mg TID PRN Administration Restless Leg Syndrome Senna/Docusate Sodium 1 tab 01/25/24 09:00 01/25/24 10:27 Sennosides-Docusate Tablet PO Not Given DAILY ARMANDO Sodium Chloride 50 ml 01/24/24 15:54 01/24/24 17:26 Sodium Chloride 0.9% 100 Ml Bag IV 01/25/24 15:55 50 ml PRN PRN Administration Blood transfusion prime and flush Trazodone HCl 150 mg 01/25/24 00:29 01/25/24 01:07 Trazodone 150 Mg Tablet PO 150 mg ONCE PRN Administration SLEEP PFSH Acute 2 PFSH: Medical History Iron deficiency anemia Brain aneurysm Necrotizing fasciitis of shoulder region Diabetes Surgical History Status post colonoscopy (10/18/21) H/O esophagogastroduodenoscopy (10/18/21) History of shoulder surgery Family History Grandfather Clotting disorder Family/Other CAD (coronary artery disease) Cancer Diabetes Stroke Grandmother CAD (coronary artery disease) Dementia Father Cancer Lung disease Mother Cancer Denies family history of Chronic kidney disease (CKD) Suicide Anesthesia complication Bleeding disorder Social History Smoking and tobacco/nicotine status: current every day tobacco/nicotine user (1 ppd, smoked x 50 years) cigarettes Packs smoked per day: 2 Years cigarettes smoked: 50 [ Other cigarette details: started at age 16] Alcohol intake: never Substance/Drug Use: never Vitals/I&O/Wt Last Vital Signs Temp 98.2 F 01/25/24 07:27 Pulse 60 01/25/24 08:37 Resp 16 01/25/24 08:37 BP 169/74 01/25/24 07:27 Pulse Ox 96 01/25/24 08:37 O2 Del Method Nasal Cannula 01/25/24 08:37 O2 Flow Rate 2.5 01/25/24 08:37 01/24/24 01/25/24 01/25/24 22:59 06:59 14:59 Intake Total 1726 / 1726 480 / 480 Output Total 800 / 800 250 / 1050 300 / 300 Balance 926 / 926 -250 / 676 180 / 180 Weight last 48 hrs Weight 177.383 kg Weight 175.172 kg Weight 172.365 kg Physical Exam 2 Narrative: Patient is awake alert no distress HEENT S1-S2 regular rate and rhythm per report Lungs Data 01/25/24 04:22 01/25/24 04:22 A&P Assessment and plan (1) Acute on chronic renal failure: 1. Acute on chronic kidney disease stage III: Baseline creatinine in the 1.5-2 range, patient was recently admitted to the hospital and was thought to have possible interstitial nephritis as etiology of MONCHO at that time due to NSAID use and also probable diabetic nephropathy. Patient now admitted with volume overload and congestive cardiac failure, -Agree with IV diuretics-IV Bumex 2 mg twice daily, strict intake and output, daily weights, 2 g sodium restriction and 1500 mL fluid. -No indication for dialysis, continue to monitor 2. Proteinuria: pt has Close to nephrotic range proteinuria, likely from diabetic nephropathy, serologies were checked during last admissions and negative 3. Severe anemia: Had negative GI workup in the past, will order DAVONTE 4. History of hypertension: Resumed home meds 4. Acute on chronic respiratory failure, due to volume overload, history of sleep apnea, diuretics as above 5. Hyperkalemia: Improved, low K diet Patient evaluated using audiovisual cart. Time spent 40 minutes. Consult Attestations 2 Medical Necessity Statement: Per medicine team Coding Level of Care Code Acute Code for Chg Fwd Diagnoses Acute on chronic renal failure N17.9; N18.9
[2024-01-25 11:32] LABS: Glucose Point of Care 237 mg/dL (70-110)
[2024-01-25] MEDS: insulin lispro 100 unit/1 mL SUBCUT ×3 (12:23→21:39)
[2024-01-25] MEDS: ipratropium-albuterol 3 mL Neb INHALATION ×2 (13:17→20:53)
--- NOTE | 2024-01-25 14:59 | P.PN_ITS ---
Subjective 2 Subjective: Patient reports he is feeling slightly better today. Does note edema in his lower extremities. Reports he lives alone. Endorses diffuse weakness. Discussed with nursing staff, he is requiring a fair amount of assistance. Patient otherwise denies other new complaints. Denies nausea or vomiting. Denies fevers or chills. Medications: Reviewed: Yes Vitals/I&O/Wt Last Vital Signs Temp 97.6 F 01/25/24 11:36 Pulse 56 L 01/25/24 13:18 Resp 17 01/25/24 13:18 BP 154/65 01/25/24 11:36 Pulse Ox 94 01/25/24 13:18 O2 Del Method Nasal Cannula 01/25/24 13:18 O2 Flow Rate 3 01/25/24 13:18 01/24/24 01/25/24 01/25/24 22:59 06:59 14:59 Intake Total 1726 / 1726 960 / 960 Output Total 800 / 800 250 / 1050 300 / 300 Balance 926 / 926 -250 / 676 660 / 660 Weight last 48 hrs Weight 177.383 kg Weight 175.172 kg Weight 172.365 kg Physical Exam 2 Narrative: General: Patient is awake and alert. Very pleasant. Head: Normocephalic. Atraumatic. EOM intact. Neck: No JVD. Cardiovascular: RRR. No gallops. No murmurs. Bilateral lower extremity edema present. Lungs: Breath sounds are diminished bilateral bases, no use of accessory muscles, no crackles or wheezes. Skin: No jaundice. No rashes. Abdomen: Normal bowel sounds, abdomen soft and nontender. Genito Urinary: Genital exam not performed since complaints not related. Rectal: Rectal exam not performed since no symptoms indicated blood loss. Extremities: No cyanosis or clubbing. Musculoskeletal: No swollen or erythematous joints. Neurological: Moves all 4 extremities. No myoclonus. Data 01/25/24 04:22 01/25/24 04:22 A&P Assessment and plan (1) HTN (hypertension): (2) Heart failure with preserved ejection fraction: (3) Atrial fibrillation: (4) Diabetes mellitus type 2, uncontrolled, with complications: (5) GERD without esophagitis: (6) Acute on chronic renal failure: (7) Acute hyperkalemia: (8) BPH (benign prostatic hyperplasia): (9) Normocytic anemia: (10) Diabetic peripheral neuropathy associated with type 2 diabetes mellitus: (11) Chronic respiratory failure with hypoxia: Plan Anasarca suspected secondary to CHF and CKD Recent echocardiogram reviewed Continue Bumex 2 mg IV every 12 hours Strict I's and O's Daily weights Acute on chronic anemia of chronic disease Status post 1 packed red blood cell with decent hemoglobin response Monitor for evidence of bleeding Repeat blood work in a.m. Acute on chronic kidney disease Hyperkalemia, resolved Nephrology has evaluated, appreciate recommendations Restless leg syndrome Continue pramipexole Chronic hypoxic respiratory failure 3 L baseline oxygen Continue breathing treatments Debility and physical deconditioning Patient noted the weak by care team Optimize underlying medical comorbidities Hypertension Off amlodipine Continue hydralazine Continue Lopressor Hypothyroidism Continue Synthroid GERD Continue PPI DVT prophylaxis: SCD CODE STATUS: Full code Attestations 2 Medical Necessity Statement*: Patient requires ongoing hospitalization for IV diuresis, titration of medications, serial labs, nephrology evaluation, and supportive care. Coding Level of Care Code Acute Code for Chg Fwd Diagnoses HTN (hypertension) I10 Heart failure with preserved ejection fraction I50.30 Atrial fibrillation I48.91 Diabetes mellitus type 2, uncontrolled, with complications GERD without esophagitis K21.9 Acute on chronic renal failure N17.9; N18.9 Acute hyperkalemia E87.5 BPH (benign prostatic hyperplasia) N40.0 Normocytic anemia D64.9 Diabetic peripheral neuropathy associated with type 2 diabetes mellitus E11.42 Chronic respiratory failure with hypoxia J96.11
[2024-01-25 16:22] LABS: Glucose Point of Care 197 mg/dL (70-110)
[2024-01-25] MEDS: pantoprazole DR 40 mg Tablet PO (17:32)
[2024-01-25 20:53] LABS: Glucose Point of Care 184 mg/dL (70-110)
[2024-01-25] MEDS: insulin glargine 100 units/1 mL 20 UNIT SUBCUT (21:38)
[2024-01-25] MEDS: metoprolol tartrate 25 mg Tablet PO (22:32)
[2024-01-26] VITALS (9 sets, daily range): BP systolic 148–194; BP diastolic 63–79; PULSE 57–76; RESP 18–20; TEMP 36.1–36.9; O2SAT 96–98
[2024-01-26] MEDS: trazodone 150 mg Tablet PO (01:09)
[2024-01-26] MEDS: ipratropium-albuterol 3 mL Neb INHALATION (01:43)
[2024-01-26] MEDS: acetaminophen 500 mg Tablet PO (02:08)
[2024-01-26] MEDS: hyDRALAzine 20 mg/mL INJ 1 mL 10 MG IVP (02:08)
[2024-01-26 05:00] LABS: Basophils # 0.1 10^3/uL (0.0-0.1); Basophils % 0.5 %; Eosinophils # 0.2 10^3/uL (0.0-0.8); Eosinophils % 1.8 %; Hematocrit 24.8 % (37-53); Lymphocytes # 1.6 10^3/uL (0.8-4.8); Lymphocytes % 16.8 %; Mean Corpuscular HGB Conc 30.2 g/dL (30-55); Mean Corpuscular Hemoglobin 28.8 pg (27-33); Mean Corpuscular Volume 95.4 fl (82-101); Mean Platelet Volume 10.5 fL (7.4-10.4); Monocytes # 0.8 10^3/uL (0.2-0.9); Neutrophils # 6.57 10^3/uL (1.8-7.7); Neutrophils % 71.1 %; Nucleated Red Blood Cells % 0 %; Platelet Count 167 10^3/cmm (157-399); Red Cell Distribution Width 14.3 % (12.1-15.1); White Blood Count 9.24 10^3/uL (3.29-11.43)
[2024-01-26 05:20] LABS: Albumin Level 3.2 g/dL (3.5-5.2); Anion Gap 16.4 (5-19); Blood Urea Nitrogen 48 mg/dL (8-23); Calcium 8.2 mg/dL (8.5-10.5); Carbon Dioxide 23 mmol/L (22-29); Chloride 99 mmol/L (98-107); Creatinine Clr Calc Pharmacy 45.7282; Glomerular Filtration Rate 24.7 mL/min (90-130); Glucose 130 mg/dL (65-115); Magnesium 2.2 mg/dL (1.7-2.3); Phosphorus 4.4 mg/dL (2.5-4.5); Potassium 4.4 mmol/L (3.5-5.1); Sodium 134 mmol/L (136-145)
[2024-01-26] MEDS: bumetanide 0.25 mg/mL SDV 10 mL 2 MG IVP (05:27)
[2024-01-26] MEDS: isosorbide mononitrate ER 30 mg Tablet PO (07:48)
[2024-01-26] MEDS: metoprolol tartrate 25 mg Tablet 50 MG PO (07:49)
[2024-01-26] MEDS: doxycycline 100 mg Tablet PO (07:51)
[2024-01-26] MEDS: hyDRALAzine 50 mg Tablet PO (07:51)
[2024-01-26] MEDS: sennosides-docusate Tablet 1 TAB PO (07:52)
[2024-01-26] MEDS: insulin lispro 100 unit/1 mL SUBCUT ×2 (07:52→12:27)
[2024-01-26] MEDS: levothyroxine 25 mcg Tablet PO (07:52)
[2024-01-26] MEDS: pramipexole 0.25 mg Tablet PO (07:52)
[2024-01-26] MEDS: pantoprazole DR 40 mg Tablet PO (07:52)
--- NOTE | 2024-01-26 09:55 | P.PN_ITS ---
Subjective 2 Subjective: denies any complaints Medications: Reviewed: Yes Vitals/I&O/Wt Last Vital Signs Temp 97 F L 01/26/24 07:25 Pulse 65 01/26/24 07:25 Resp 20 H 01/26/24 07:25 BP 162/71 01/26/24 07:25 Pulse Ox 96 01/26/24 07:25 O2 Del Method Nasal Cannula 01/26/24 07:25 O2 Flow Rate 3 01/26/24 07:25 01/25/24 01/26/24 01/26/24 22:59 06:59 14:59 Intake Total 240 / 1200 480 / 480 Output Total 700 / 1000 400 / 1400 500 / 500 Balance -460 / 200 -400 / -200 -20 / -20 Weight last 48 hrs Weight 178.715 kg Weight 177.383 kg Weight 175.172 kg Weight 172.365 kg Physical Exam 2 Narrative: Patient is awake alert no distress HEENT S1-S2 regular rate and rhythm per report Lungs Data 01/26/24 04:51 01/26/24 04:51 A&P Assessment and plan (1) Acute on chronic renal failure: 1. Acute on chronic kidney disease stage III: Baseline creatinine in the 1.5-2 range, patient was recently admitted to the hospital and was thought to have possible interstitial nephritis as etiology of MONCHO at that time due to NSAID use and also probable diabetic nephropathy. Patient now admitted with volume overload and congestive cardiac failure, -Agree with IV diuretics-IV Bumex 2 mg twice daily, strict intake and output, daily weights, 2 g sodium restriction and 1500 mL fluid. - can switch to PO bumex in AM , Cr stable -No indication for dialysis currently , continue to monitor - arrange Nephrology follow up @ [place] 2. Proteinuria: pt has Close to nephrotic range proteinuria, likely from diabetic nephropathy, serologies were checked during last admissions and negative 3. Severe anemia: Had negative GI workup in the past, will order DAVONTE 4. History of hypertension: Resumed home meds 4. Acute on chronic respiratory failure, due to volume overload, history of sleep apnea, diuretics as above 5. Hyperkalemia: Improved, low K diet Patient evaluated using audiovisual cart. Time spent 40 minutes. Attestations 2 Medical Necessity Statement*: PER MATTEO Coding Level of Care Code Acute Code for Chg Fwd Diagnoses Acute on chronic renal failure N17.9; N18.9
[2024-01-26 11:19] LABS: Glucose Point of Care 202 mg/dL (70-110)
--- NOTE | 2024-01-26 13:22 | PM.DCS ---
Discharge Providers Date of Admission: 01/24/24 18:10 Date of Discharge: January 26, 2024 Attending Provider at Admission: Sangeeta Rodriguez MD Attending Provider at Discharge: Dave Kothari MD Consults: Nephrology Primary Care Provider: Rachel Bills MD Diagnoses at Discharge Discharge Diagnosis (1) Acute on chronic renal failure: Status: Acute (2) HTN (hypertension): Status: Acute (3) Heart failure with preserved ejection fraction: Status: Acute (4) Diabetes mellitus type 2, uncontrolled, with complications: Status: Acute (5) BPH (benign prostatic hyperplasia): Status: Acute (6) Acute hyperkalemia: Status: Acute (7) Chronic respiratory failure with hypoxia: Status: Acute (8) Diabetic peripheral neuropathy associated with type 2 diabetes mellitus: Status: Acute (9) GERD without esophagitis: Status: Acute (10) Acquired hypothyroidism: Status: Acute (11) Iron deficiency anemia: Status: Chronic Reason for Visit Reason for Visit: Kidney failure - doctor sent Hospital Course Hospital Course Juan Thomas is a 68-year-old male with a past medical history significant for chronic kidney disease, insulin-dependent type 2 diabetes mellitus, hypertension, chronic hypoxic respiratory failure on 3 L oxygen, iron deficiency, and multiple other comorbidities who presented with abnormal labs obtained through his PCPs office. Patient was found to have acute hyperkalemia and renal insufficiency for which she was directed to the hospital. Patient was admitted for further management. He underwent medical treatment for hyperkalemia which resolved. Nephrology was consulted and followed for acute kidney injury on suspected chronic kidney disease. He was treated with IV Bumex with improvement in volume status. His home Bumex dose was increased to 2 mg twice daily. Due to lower extremity edema his amlodipine was discontinued. Recommend patient have close follow-up with his primary care provider with repeat labs within 1 week. Patient was noted to have a history of obstructive sleep apnea. He wears a home CPAP machine but has not been updated in about 15 years. Patient may benefit from BiPAP, he will likely need outpatient sleep studies in order to determine this. Will ultimately defer to PCP. Patient symptomatology significantly improved. Postacute care was considered but patient declined. He reports good support network through home health, friends and family. Patient discharged to home in stable condition. Physical Exam Narrative: General: Patient is awake and alert. Head: Normocephalic. Atraumatic. EOM intact. Neck: No JVD. Cardiovascular: Regular rate. No gallops. No murmurs. 2+ pitting edema bilateral lower extremities Lungs: Breath sounds diminished bilateral bases, no use of accessory muscles, no crackles or wheezes. On 3 L nasal cannula support. Skin: No jaundice. No rashes. Abdomen: Normal bowel sounds, abdomen soft and nontender. Genito Urinary: Genital exam not performed since complaints not related. Rectal: Rectal exam not performed since no symptoms indicated blood loss. Extremities: No cyanosis or clubbing. Musculoskeletal: No swollen or erythematous joints. Neurological: Moves all 4 extremities. No myoclonus. Discharge Data Studies Completed and Pending Pending at discharge Category Date Time Status Fecal Occult Blood [Immunochemical Fecal OCB] Routine Lab 01/24/24 15:23 Ordered Laboratory Results WBC 9.24 10^3/uL (3.29-11.43) 01/26/24 04:51 RBC 2.60 10^6/uL (3.85-5.65) L 01/26/24 04:51 Hgb 7.50 g/dL (11.27-16.99) L 01/26/24 04:51 Hct 24.8 % (37-53) L 01/26/24 04:51 MCV 95.4 fl (82-101) 01/26/24 04:51 MCH 28.8 pg (27-33) 01/26/24 04:51 MCHC 30.2 g/dL (30-55) D 01/26/24 04:51 RDW 14.3 % (12.1-15.1) 01/26/24 04:51 Plt Count 167 10^3/cmm (157-399) 01/26/24 04:51 MPV 10.5 fL (7.4-10.4) H 01/26/24 04:51 Neut % (Auto) 71.1 % 01/26/24 04:51 Lymph % (Auto) 16.8 % 01/26/24 04:51 [place] % (Auto) 9.0 % 01/26/24 04:51 Eos % (Auto) 1.8 % 01/26/24 04:51 Baso % (Auto) 0.5 % 01/26/24 04:51 Neut # (Auto) 6.57 10^3/uL (1.8-7.7) 01/26/24 04:51 Lymph # (Auto) 1.6 10^3/uL (0.8-4.8) 01/26/24 04:51 [place] # (Auto) 0.8 10^3/uL (0.2-0.9) 01/26/24 04:51 Eos # (Auto) 0.2 10^3/uL (0.0-0.8) 01/26/24 04:51 Baso # (Auto) 0.1 10^3/uL (0.0-0.1) 01/26/24 04:51 Nucleated RBC % (auto) 0 % 01/26/24 04:51 Nucleated RBCs # 0.0 /100WBC 01/26/24 04:51 Sodium 134 mmol/L (136-145) L 01/26/24 04:51 Potassium 4.4 mmol/L (3.5-5.1) 01/26/24 04:51 Chloride 99 mmol/L (98-107) 01/26/24 04:51 Carbon Dioxide 23 mmol/L (22-29) 01/26/24 04:51 Anion Gap 16.4 (5-19) 01/26/24 04:51 BUN 48 mg/dL (8-23) H 01/26/24 04:51 Creatinine 2.6 mg/dL (0.7-1.2) H 01/26/24 04:51 GFR Calculation 24.7 mL/min (90-130) L 01/26/24 04:51 Glucose 130 mg/dL (65-115) H 01/26/24 04:51 POC Glucose 202 mg/dL (70-110) H 01/26/24 11:13 Calculated Osmolality 289 mOsm/kg (285-295) 01/25/24 04:22 Calcium 8.2 mg/dL (8.5-10.5) L 01/26/24 04:51 Phosphorus 4.4 mg/dL (2.5-4.5) 01/26/24 04:51 Magnesium 2.2 mg/dL (1.7-2.3) 01/26/24 04:51 Iron 42 ug/dL (59-158) L 01/24/24 18:23 Total Bilirubin 0.2 mg/dL (0.15-1.2) 01/24/24 13:05 AST 14 U/L (0-40) 01/24/24 13:05 ALT 9 U/L (0-41) 01/24/24 13:05 Alkaline Phosphatase 118 U/L (40-130) 01/24/24 13:05 Total Protein 6.3 g/dL (6.6-8.7) L 01/24/24 13:05 Albumin 3.2 g/dL (3.5-5.2) L 01/26/24 04:51 Globulin 3.0 g/dL (1.3-4.6) 01/24/24 13:05 Vitamin B12 345 pg/mL (232-1245) 01/24/24 18:23 Urine Color Yellow (Yellow) 01/24/24 19:30 Urine Appearance Clear (CLEAR) 01/24/24 19:30 Urine pH 5.0 (5-7) 01/24/24 19:30 Ur Specific [place] 1.010 (1.005-1.030) 01/24/24 19:30 Urine Protein 1+ (Negative) A 01/24/24 19:30 Urine Glucose (UA) Negative (Normal) 01/24/24 19:30 Urine Ketones Negative (Negative) 01/24/24 19:30 Urine Blood Negative (Negative) 01/24/24 19:30 Urine Nitrate Negative (Negative) 01/24/24 19:30 Urine Bilirubin Negative (Negative) 01/24/24 19:30 Urine Urobilinogen 0.2 mg/dL (Negative) 01/24/24 19:30 Ur Leukocyte Esterase Negative (Negative) 01/24/24 19:30 Urine RBC 0-2 /hpf (0-2) 01/24/24 19:30 Urine WBC 0-5 /hpf (0-5) 01/24/24 19:30 Ur Squamous Epith Cells 0-5 /hpf (0-5) 01/24/24 19:30 Amorphous Sediment Not Reportable 01/24/24 19:30 Urine Bacteria None seen /hpf (NONE) 01/24/24 19:30 Hyaline Casts 3.71 /lpf 01/24/24 19:30 Blood Type O Negative 01/24/24 14:08 Rho(D) Type Rh negative 01/24/24 14:08 Antibody Screen Negative 01/24/24 14:08 Crossmatch See Detail 01/24/24 14:08 Vitals Last Vital Signs Temp 97.6 F 01/26/24 11:27 Pulse 57 L 01/26/24 11:27 Resp 18 01/26/24 11:27 BP 148/79 01/26/24 11:27 Pulse Ox 96 01/26/24 11:27 O2 Del Method Nasal Cannula 01/26/24 11:27 O2 Flow Rate 3 01/26/24 11:27 Discharge Plan Discharge Patient Disposition: Home Condition: Stable Prescriptions: Continued sertraline 100 mg tablet 100 mg PO QAM clonazepam 1 mg tablet 0.5 mg PO BEDTIME PRN (Reason: Sleep) insulin aspart U-100 [Novolog FlexPen U-100 Insulin] 100 unit/mL (3 mL) insulin pen See Rx Instructions .ROUTE .COMPLEX Rx Instructions: sliding scale subcutaneously before meals levothyroxine 25 mcg tablet 25 mcg PO DAILY levocetirizine 5 mg tablet 5 mg PO DAILY FeroSul 325 mg (65 mg iron) tablet 325 mg PO BID silver sulfadiazine [Silvadene] 1 % cream 1 applic topical BID Qty: 50 0RF Patient Comments: doesnt take anymore Rx Instructions: apply a 1.5 mm thickness simvastatin 10 mg tablet 10 mg PO DAILY tamsulosin 0.4 mg capsule 0.4 mg PO DAILY ipratropium-albuterol 0.5 mg-3 mg(2.5 mg base)/3 mL Solution For Nebulization 3 ml inhalation Q6H PRN (Reason: Shortness Of Breath) Qty: 280 0RF isosorbide mononitrate 30 mg Tablet Extended Release 24 Hr 30 mg PO BID Qty: 60 0RF doxycycline monohydrate 100 mg Tablet 100 mg PO BID Qty: 10 0RF Patient Comments: no longer takes pantoprazole 40 mg Tablet,Delayed Release (Dr/Ec) 40 mg PO BID Qty: 60 0RF pramipexole 0.25 mg Tablet 0.25 mg PO TID PRN (Reason: Restless Leg Syndrome) Qty: 90 0RF hydralazine 50 mg Tablet 50 mg PO TID Qty: 90 0RF nystatin [Nystop] 100,000 unit/gram Powder 1 applic topical BID Qty: 60 0RF Patient Comments: doesnt use anymore metoprolol tartrate 25 mg Tablet 50 mg PO BID@0900,2100 Qty: 120 0RF insulin glargine [Lantus Solostar U-100 Insulin] 100 unit/mL (3 mL) insulin pen 20 unit SUBCUT BID Qty: 10 0RF Changed bumetanide 1 mg Tablet 2 mg PO BID Qty: 60 0RF Discontinued omeprazole 20 mg capsule,delayed release(DR/EC) 20 mg PO DAILY amlodipine 10 mg Tablet 10 mg PO DAILY Qty: 30 0RF Discharge Orders: Discharge Order (Routine); Ordered 01/26/24 Ordered By: Dave Kothari Other Ambulatory Orders: Complete Blood Count w/Auto (Routine) Timeframe: 1 Week Location: Determined by Patient Ordered By: Dave Kothari Comprehensive Metabolic Panel (Routine) Timeframe: 1 Week Facility: [facility] - Location: Lab - Main Lab Ordered By: Dave Kothari NT Pro B Type Natriuretic Pept (Routine) Timeframe: 1 Week Facility: [facility] - Location: Lab - Main Lab Ordered By: Dave Kothari Referrals: Rachel Bills MD [Primary Care Provider] - 1 week (You will need to contact your primary care provider Dr. Bills at [phone] and make a follow up appointment.) Discharge Diet: Cardiac and Diabetic Discharge Activity: Resume usual activity and Increase activity as tolerated Patient Instructions: Chronic Kidney Disease (DC), Hyperkalemia (DC), Anemia (DC), Opioid Safety Activity Restrictions/Additional Instructions: 1. Follow up with PCP within one week with repeat labs. Outpatient lab orders have been entered. 2. Take medications as prescribed. 3. Avoid nephrotoxins. No NSAIDs. Discharge Attestations Time Spent in Discharge Care*: greater than 30 min Quality Metrics Clinical Quality Measures [ No reported AMI, CVA or VTE this stay] Coding Level of Care Code Acute Code for Chg Fwd Diagnoses Acute on chronic renal failure N17.9; N18.9 HTN (hypertension) I10 Heart failure with preserved ejection fraction I50.30 Diabetes mellitus type 2, uncontrolled, with complications BPH (benign prostatic hyperplasia) N40.0 Acute hyperkalemia E87.5 Chronic respiratory failure with hypoxia J96.11 Diabetic peripheral neuropathy associated with type 2 diabetes mellitus E11.42 GERD without esophagitis K21.9 Acquired hypothyroidism E03.9 Iron deficiency anemia D50.9
== END 2024-01-26 15:06 | disposition home or self-care (01) | DRG 683 ==
LOC: ER 13:02 → MEDSURG 15:57
PROVIDERS: Admitting Provider Internal Medicine; Emergency Provider Family Medicine; PCP Family Medicine; Visit Provider Internal Medicine
DX: N17.9 Acute kidney failure, unspecified (principal); I13.0 Hypertensive heart and chronic kidney disease with heart failure and stage 1 through stage 4 chronic kidney disease, or unspecified chronic kidney disease; I50.32 Chronic diastolic (congestive) heart failure; J96.11 Chronic respiratory failure with hypoxia; E11.22 Type 2 diabetes mellitus with diabetic chronic kidney disease; N18.30 Chronic kidney disease, stage 3 unspecified; E11.42 Type 2 diabetes mellitus with diabetic polyneuropathy; N40.0 Benign prostatic hyperplasia without lower urinary tract symptoms; E87.5 Hyperkalemia; K21.9 Gastro-esophageal reflux disease without esophagitis; E03.9 Hypothyroidism, unspecified; D50.9 Iron deficiency anemia, unspecified; G47.33 Obstructive sleep apnea (adult) (pediatric); G25.81 Restless legs syndrome; F17.210 Nicotine dependence, cigarettes, uncomplicated; Z79.4 Long term (current) use of insulin
CPT/HCPCS: 36415; 36416; 36430; 80048; 80053; 80069; 81003; 81015; 82607; 82962; 83540; 83735; 85025; 86850; 86900; 86902; 86920; 93005; 94640; 96361; 96372; 96374; 96375; 99285; J0360; J1815; J2470; J3490; J7030; J7040; J7613; P9016

== ENCOUNTER 2024-01-31 08:46 | Outpatient (CLI) | payer MEDICARE, SELFPAY ==
[2024-01-31 09:34] LABS: Anion Gap 13.9 (5-19); Blood Urea Nitrogen 49 mg/dL (8-23); Calcium 8.2 mg/dL (8.5-10.5); Carbon Dioxide 30 mmol/L (22-29); Chloride 101 mmol/L (98-107); Glomerular Filtration Rate 24.7 mL/min (90-130); Glucose 236 mg/dL (65-115); Osmolality Calculated 311 mOsm/kg (285-295); Potassium 4.9 mmol/L (3.5-5.1); Sodium 140 mmol/L (136-145)
== END 2024-01-31 08:47 | disposition home or self-care (01) ==
LOC: LAB 08:50
PROVIDERS: PCP Family Medicine; Visit Provider Family Medicine
DX: I50.9 Heart failure, unspecified (principal)
CPT/HCPCS: 80048

== ENCOUNTER 2024-02-21 13:33 | Outpatient (CLI) | payer MEDICARE, SELFPAY ==
[2024-02-21 13:58] LABS: Basophils # 0.1 10^3/uL (0.0-0.1); Basophils % 0.6 %; Eosinophils # 0.2 10^3/uL (0.0-0.8); Lymphocytes % 10.2 %; Mean Corpuscular HGB Conc 32.4 g/dL (30-55); Mean Corpuscular Hemoglobin 28.2 pg (27-33); Mean Corpuscular Volume 87.1 fl (82-101); Mean Platelet Volume 10.7 fL (7.4-10.4); Monocytes # 0.7 10^3/uL (0.2-0.9); Monocytes % 7.6 %; Neutrophils # 7.67 10^3/uL (1.8-7.7); Neutrophils % 78.9 %; Nucleated Red Blood Cells % 0 %; Platelet Count 186 10^3/cmm (157-399); Red Blood Count 2.87 10^6/uL (3.85-5.65); Red Cell Distribution Width 13.4 % (12.1-15.1); White Blood Count 9.72 10^3/uL (3.29-11.43)
[2024-02-21 14:21] LABS: Alanine Aminotransferase 13 U/L (0-41); Albumin Level 3.9 g/dL (3.5-5.2); Alkaline Phosphatase 141 U/L (40-130); Anion Gap 16.5 (5-19); Aspartate Amino Transferase 19 U/L (0-40); Blood Urea Nitrogen 77 mg/dL (8-23); Calcium 8.9 mg/dL (8.5-10.5); Carbon Dioxide 26 mmol/L (22-29); Chloride 95 mmol/L (98-107); Glomerular Filtration Rate 25.8 mL/min (90-130); Glucose 203 mg/dL (65-115); Osmolality Calculated 303 mOsm/kg (285-295); Potassium 5.5 mmol/L (3.5-5.1); Sodium 132 mmol/L (136-145); Total Bilirubin 0.2 mg/dL (0.15-1.2); Total Protein 6.9 g/dL (6.6-8.7)
== END 2024-02-21 13:34 | disposition home or self-care (01) ==
LOC: LAB 13:34
PROVIDERS: PCP Family Medicine; Visit Provider Family Medicine
DX: I13.0 Hypertensive heart and chronic kidney disease with heart failure and stage 1 through stage 4 chronic kidney disease, or unspecified chronic kidney disease (principal)
CPT/HCPCS: 80053; 85025

== ENCOUNTER 2024-05-18 22:42 | Inpatient (IN) | payer MEDICARE, SELFPAY ==
[2024-05-18] VITALS (11 sets, daily range): BP systolic 197–199; BP diastolic 72–74; PULSE 59–66; RESP 16–24; TEMP 36.7; O2SAT 95–98; BMI 44.9
--- NOTE | 2024-05-18 22:48 | XRR_ITS ---
PROCEDURE INFORMATION: Exam: XR Chest Exam date and time: 05/18/2024 11:24 PM Age: 68 years old Clinical indication: Shortness of breath and wheezing; Additional info: Weakness TECHNIQUE: Imaging protocol: Radiologic exam of the chest. Views: 1 view. COMPARISON: CR XR chest 1V portable [id number] 12/17/2023 8:10 AM FINDINGS: Limitations: Patient rotation. Lungs: Left basilar opacities suggesting atelectasis or scarring, similar compared to prior study. Stable mild interstitial prominence. Pleural spaces: No pleural effusion or pneumothorax. Heart/Mediastinum: Heart size is poorly evaluated. The cardiomediastinal silhouette appears stable. Bones/joints: No acute osseous abnormalities are seen. XR/XR chest 1V portable [id number] IMPRESSION: Left basilar opacities suggesting atelectasis or scarring, similar compared to prior study. Developing consolidation could also have this appearance.
--- NOTE | 2024-05-18 22:52 | ECG_ITS ---
[facility] Test Date: 2024-05-18 Pat Name: Juan Thomas Department: Room: ICU10 Gender: Male Public Opinion Survey Taker: : 1955 Requested By: Janie Gregory Order Number: [id number] Gaudencio MD: Bora Gómez M.D. Measurements Intervals [place] Rate: 65 P: 42 MO: 173 QRS: -10 QRSD: 125 T: 66 QT: 392 QTc: 410 Interpretive Statements SINUS RHYTHM MODERATE INTRAVENTRICULAR CONDUCTION DELAY [105+ ms QRS DURATION, 80+ ms Q/S IN V1/V2, NO Q AND 60+ ms R IN I/aVL/V5/V6] Compared to ECG 01/24/2024 13:11:13 Intraventricular conduction delay now present Sinus bradycardia no longer present First degree AV block no longer present Myocardial infarct finding no longer present Electronically Signed On 05-19-2024 15:10:36 RETAIL ASSET PROTECTION SPECIALIST by Bora Gómez M.D. [email or web address]
--- NOTE | 2024-05-18 23:05 | ED_ITS ---
HPI - Weakness 2 General: Chief complaint: Weakness Stated complaint: WEAKNESS Time Seen by Provider: 05/18/24 22:45 History of Present Illness: 68-year-old man with history of morbid o besity, COPD, chronic hypoxemic respiratory failure on 4 L nasal cannula at all times, diabetes, atrial fibrillation, and he reports congestive heart failure who presents the emergency room with generalized weakness. He normally uses canes to get around but today had gotten so weak that he was having to use a walker. He had then gone to the kitchen and became so weak that he had to sit down on the floor. EMS was called to help him get up. At that point he decided he should come in to be checked out because he was too weak to walk. He has a chronic cough. He does not think that is much worse than usual. He has chronic lower extremity swelling which may be a little worse than normal. No known fevers. No abdominal pain. No nausea or vomiting. He is slightly hypertensive on presentation. He is satting well on his home 4 L. Review of Systems 2 Narrative: Constitutional symptoms: Negative except as documented in HPI. Skin symptoms: Negative except as documented in HPI. Eye symptoms: Negative except as documented in HPI. ENMT symptoms: Negative except as documented in HPI. Respiratory symptoms: Negative except as documented in HPI. Cardiovascular symptoms: Negative except as documented in HPI. Gastrointestinal symptoms: Negative except as documented in HPI. Genitourinary symptoms: Negative except as documented in HPI. Musculoskeletal symptoms: Negative except as documented in HPI. Neurologic symptoms: Negative except as documented in HPI. Psychiatric symptoms: Negative except as documented in HPI. Endocrine symptoms: Negative except as documented in HPI. PFSH ED 2 PFSH: Medical History Anemia Acute hyperkalemia Hypotension Hypochromic microcytic anemia Anxiety and depression Normocytic anemia Heart failure Atrial flutter Pneumonia Respiratory failure Iron deficiency anemia Brain aneurysm Necrotizing fasciitis of shoulder region Diabetes Surgical History Status post colonoscopy (10/18/21) H/O esophagogastroduodenoscopy (10/18/21) History of shoulder surgery Family History Grandfather Clotting disorder Family/Other CAD (coronary artery disease) Cancer Diabetes Stroke Grandmother CAD (coronary artery disease) Dementia Father Cancer Lung disease Mother Cancer Denies family history of Chronic kidney disease (CKD) Suicide Anesthesia complication Bleeding disorder Social History Smoking and tobacco/nicotine status: current every day tobacco/nicotine user (1 ppd, smoked x 50 years) cigarettes Packs smoked per day: 2 Years cigarettes smoked: 50 [ Other cigarette details: started at age 16] Alcohol intake: never Substance/Drug Use: never Physical Exam 2 Narrative: EXAM NARRATIVE: General: Alert, no acute distress. Skin: Warm, dry. Head: Normocephalic, atraumatic. Neck: Supple, trachea midline. Eye: Extraocular movements are intact. Ears, nose, mouth and throat: mucosa moist. Cardiovascular: Regular, Normal peripheral perfusion. Tibial edema Respiratory: Coarse, mild wheeze, mild tachypnea. No increased work of breathing EMS reports that his oxygen saturations did drop with any exertion. Gastrointestinal: Soft, Nontender, Non distended Musculoskeletal: Normal ROM, no deformity. Neurological: Alert and oriented, No focal neurological deficit observed. Psychiatric: Cooperative, appropriate mood & affect. Course 2 Vital Signs: Vital signs: Vital Signs Temperature 98.0 F 05/18/24 22:47 Pulse Rate 60 05/18/24 23:45 Respiratory Rate 16 05/18/24 23:45 Blood Pressure 197/72 05/18/24 23:30 Pulse Oximetry 98 05/18/24 23:45 Oxygen Delivery Me thod Nasal Cannula 05/18/24 22:52 Oxygen Flow Rate 4 05/18/24 22:52 MDM - Weakness Medical Decision Making Medical decision making: Differential diagnosis for patient presenting with generalized weakness including but not limited to and based on the above HPI, review of systems and physical exam: Sepsis. Dehydration. Renal failure. Electrolyte abnormalities. Anemia. Congestive heart failure. Hypotension. Coronary syndrome. Hepatitis. Cirrhosis. Infections such as pneumonia, urinary tract infection, [place] illness, Cellulitis, Viral infections including influenza and Covid-19. Workup: labwork and lab/exam driven imaging ordered to evaluate, rule in and rule out above pathologies. EKG: Time 2252. Rate 65. Normal sinus rhythm, no ST-T changes, no ectopy, normal IN & QRS intervals, This was reviewed and interpreted by myself the ER physician at 2255. Chest x-ray: Scarring in the left lower lobe that appears similar to previous chest x-ray. No acute process. No infiltrate. No pneumothorax. This was reviewed and interpreted by myself the emergency room physician. I also reviewed the radiology report. Lab Review: Laboratory results were reviewed and interpreted by myself the emergency room physician. No leukocytosis. Hemoglobin stable at 8.5. BUN and creatinine are up slightly from previous at 40 and 3. Of note his potassium is 8. I reviewed the patient's medical record. Patient has been admitted recently with acute renal failure and hyperkalemia. Reexamination: Patient remained stable. No increased work of breathing. No altered mental status. No focal motor deficits. Consultation: I spoke with Dr. Kothari who is on-call for the hospitalist service. He recommends admission. He also recommends consultation with nephrology. I have contacted them. Consultation: I spoke with Dr. Camacho with nephrology. He is consulting on the patient. He agrees with Kayexalate, D10, insulin and calcium gluconate. He also recommends an indwelling Briceño catheter and an albuterol updraft which I have ordered. Assessment and plan: Hyperkalemia Renal failure Generalized weakness Chronic hypoxemic respiratory failure -Insulin, 250 bolus of D10, calcium gluconate, Kayexalate, albuterol updraft, indwelling Briceño catheter ? Oxygen stable on his 4 L nasal cannula at this time. ? I discussed the patient with the hospitalist on-call who is admitting the patient. - Discussed findings and plan with patient. Answered any questions. - All laboratory values were reviewed and interpreted personally by myself, the ER physician - All imaging was reviewed and interpreted personally by myself, the ER physician. - Evaluation and treatment of this problem were appropriate in the emergency setting Critical care -I spent a total of >35 minutes of critical care time managing the patient, independent of any other practitioner. -The time involved in the performance of separately reportable procedures was not counted towards critical care time. Lab Data 05/18/24 23:12 05/18/24 23:12 Laboratory Results WBC 9.12 10^3/uL (3.29-11.43) 05/18/24 23:12 RBC 2.97 10^6/uL (3.85-5.65) L 05/18/24 23:12 Hgb 8.50 g/dL (11.27-16.99) L 05/18/24 23:12 Hct 28.3 % (37-53) L 05/18/24 23:12 MCV 95.3 fl (82-101) 05/18/24 23:12 MCH 28.6 pg (27-33) 05/18/24 23:12 MCHC 30.0 g/dL (30-55) 05/18/24 23:12 RDW 13.8 % (12.1-15.1) 05/18/24 23:12 Plt Count 215 10^3/cmm (157-399) 05/18/24 23:12 MPV 10.0 fL (7.4-10.4) 05/18/24 23:12 Neut % (Auto) 76.6 % 05/18/24 23:12 Lymph % (Auto) 12.0 % 05/18/24 23:12 [place] % (Auto) 7.9 % 05/18/24 23:12 Eos % (Auto) 1.9 % 05/18/24 23:12 Baso % (Auto) 0.8 % 05/18/24 23:12 Neut # (Auto) 7.00 10^3/uL (1.8-7.7) 05/18/24 23:12 Lymph # (Auto) 1.1 10^3/uL (0.8-4.8) 05/18/24 23:12 [place] # (Auto) 0.7 10^3/uL (0.2-0.9) 05/18/24 23:12 Eos # (Auto) 0.2 10^3/uL (0.0-0.8) 05/18/24 23:12 Baso # (Auto) 0.1 10^3/uL (0.0-0.1) 05/18/24 23:12 Nucleated RBC % (auto) 0 % 05/18/24 23:12 Nucleated RBCs # 0.0 /100WBC 05/18/24 23:12 Specimen Type Arterial 05/18/24 23:19 Sample Site Brachial, right 05/18/24 23:19 ABG pH 7.36 (7.35-7.45) 05/18/24 23:19 ABG pCO2 44.1 mmHg (35-45) 05/18/24 23:19 ABG pO2 83.6 mmHg (80.0-100.0) 05/18/24 23:19 ABG HCO3 25.1 mmol/L (22-26) 05/18/24 23:19 ABG O2 Saturation 96.4 05/18/24 23:19 ABG Base Excess -0.4 mmol/L (-2.0-2.0) 05/18/24 23:19 Matthew Test N/a 05/18/24 23:19 A-a O2 Gradient 1.6 mmHg (5-10) L 05/18/24 23:19 Hematocrit 25.4 % (42-52) L 05/18/24 23:19 Hgb O2 Saturation 92.8 % (95-100) L 05/18/24 23:19 Carboxyhemoglobin 2.4 %THgb (0.4-20.1) 05/18/24 23:19 Methemoglobin 1.4 % (0.4-1.5) 05/18/24 23:19 Total Hemoglobin 8.3 g/dL (14-18) L 05/18/24 23:19 Sodium 135.0 mmol/L (131-143) 05/18/24 23:19 Potassium 7.5 mmol/L (3.5-5.0) H 05/18/24 23:19 Glucose 222.0 mg/dL (70-115) H 05/18/24 23:19 Ionized Calcium 1.2 mmol/L (1.1-1.4) 05/18/24 23:19 O2 Delivery Device Nc 05/18/24 23:19 O2 Liters/Min 4.0 % 05/18/24 23:19 Woodwork Salvage Inspector ID [email or web address] 05/18/24 23:19 Sodium 134 mmol/L (136-145) L 05/18/24 23:12 Potassium 8.0 mmol/L (3.5-5.1) H* 05/18/24 23:12 Chloride 100 mmol/L (98-107) 05/18/24 23:12 Carbon Dioxide 25 mmol/L (22-29) 05/18/24 23:12 Anion Gap 17.0 (5-19) 05/18/24 23:12 BUN 40 mg/dL (8-23) H 05/18/24 23:12 Creatinine 3.0 mg/dL (0.7-1.2) H 05/18/24 23:12 GFR Calculation 20.9 mL/min (90-130) L 05/18/24 23:12 Glucose 228 mg/dL (65-115) H 05/18/24 23:12 Calculated Osmolality 295 mOsm/kg (285-295) 05/18/24 23:12 Lactic Acid 1.1 mmol/L (0.5-2.2) 05/18/24 23:12 Calcium 9.2 mg/dL (8.5-10.5) 05/18/24 23:12 Total Bilirubin 0.2 mg/dL (0.15-1.2) 05/18/24 23:12 AST 21 U/L (0-40) 05/18/24 23:12 ALT 13 U/L (0-41) 05/18/24 23:12 Alkaline Phosphatase 178 U/L (40-130) H 05/18/24 23:12 Troponin T Baseline 107 ng/L (0-15) H* 05/18/24 23:12 NT-Pro-B Natriuret Pep 1743 pg/mL (0-125) H 05/18/24 23:12 Total Protein 7.7 g/dL (6.6-8.7) 05/18/24 23:12 Albumin 4.1 g/dL (3.5-5.2) 05/18/24 23:12 Globulin 3.6 g/dL (1.3-4.6) 05/18/24 23:12 Coronavirus (PCR) Negative (Negative) 05/18/24 23:12 Influenza A (PCR) Negative (Negative) 05/18/24 23:12 Influenza Type B (PCR) Negative (Negative) 05/18/24 23:12 RSV (PCR) Negative (Negative) 05/18/24 23:12 XR interpretation done by ED provider, pending radiology final review Discharge Plan Discharge Patient Disposition: Admitted As Inpatient Clinical Impression: Hyperkalemia, Chronic hypoxemic respiratory failure, Acute on chronic renal failure Condition: Stable Coding Level of Care Code ED Special Events Fundraiser for Chg Fwd Related Data Home Medications Medication Instructions Recorded Confirmed clonazepam 1 mg tablet 0.5 mg PO BEDTIME PRN Sleep 08/07/21 01/24/24 insulin aspart U-100 100 unit/mL See Rx Instructions .Route .COMPLEX 08/07/21 01/24/24 (3 mL) subcutaneous pen (Novolog FlexPen U-100 Insulin aspart) sertraline 100 mg tablet 100 mg PO QAM 08/07/21 01/24/24 levocetirizine 5 mg tablet 5 mg PO DAILY 02/16/22 01/24/24 levothyroxine 25 mcg tablet 25 mcg PO DAILY 02/16/22 01/24/24 ferrous sulfate 325 mg (65 mg 325 mg PO BID 03/06/22 01/24/24 iron) tablet (FeroSul) simvastatin 10 mg tablet 10 mg PO DAILY 12/16/23 01/24/24 tamsulosin 0.4 mg capsule 0.4 mg PO DAILY 12/16/23 01/24/24 Previous Rx's Medication Instructions Recorded silver sulfadiazine 1 % topical 1 applic topical BID #50 grams 03/15/23 cream (Silvadene) doxycycline monohydrate 100 mg 100 mg PO BID #10 tabs 12/19/23 tablet hydralazine 50 mg tablet 50 mg PO TID #90 tabs 12/19/23 insulin glargine 100 unit/mL (3 20 unit (0.2 mL) SUBCUT BID #10 mL 12/19/23 mL) subcutaneous pen (Lantus Solostar U-100 Insulin) ipratropium 0.5 mg-albuterol 3 mg 3 ml inhalation Q6H PRN Shortness 12/19/23 (2.5 mg base)/3 mL nebulization Of Breath #280 mL soln isosorbide mononitrate 30 mg 30 mg PO BID #60 tabs 12/19/23 tablet,extended release 24 hr metoprolol tartrate 25 mg tablet 50 mg (2 x 25 mg) PO BID@0900,2100 12/19/23 #120 tabs nystatin 100,000 unit/gram topical 1 applic topical BID #60 grams 12/19/23 powder (Nystop) pantoprazole 40 mg tablet,delayed 40 mg PO BID #60 tabs 12/19/23 release pramipexole 0.25 mg tablet 0.25 mg PO TID PRN Restless Leg 12/19/23 Syndrome #90 tabs bumetanide 1 mg tablet 2 mg (2 x 1 mg) PO BID #60 tabs 01/26/24 Allergies Allergy/AdvReac Type Severity Reaction Status Date / Time No Known Allergies Allergy Verified 05/18/24 22:52
[2024-05-18 23:27] LABS: Basophils # 0.1 10^3/uL (0.0-0.1); Basophils % 0.8 %; Eosinophils # 0.2 10^3/uL (0.0-0.8); Eosinophils % 1.9 %; Hematocrit 28.3 % (37-53); Lymphocytes # 1.1 10^3/uL (0.8-4.8); Mean Corpuscular Hemoglobin 28.6 pg (27-33); Mean Corpuscular Volume 95.3 fl (82-101); Monocytes # 0.7 10^3/uL (0.2-0.9); Monocytes % 7.9 %; Neutrophils % 76.6 %; Nucleated Red Blood Cells % 0 %; Platelet Count 215 10^3/cmm (157-399); Red Blood Count 2.97 10^6/uL (3.85-5.65); Red Cell Distribution Width 13.8 % (12.1-15.1); White Blood Count 9.12 10^3/uL (3.29-11.43)
[2024-05-18 23:30] LABS: ABG PCO2 44.1 mmHg (35-45); ABG PH Result 7.36 (7.35-7.45); Alveolar-Arterial Oxygen Gradi 1.6 mmHg (5-10); Arterial Blood Gas Hematocrit 25.4 % (42-52); Base Excess ABG -0.4 mmol/L (-2.0-2.0); Blood Gas Sample Site Brachial, right; Blood Gas Sample Type Arterial; Carboxyhemoglobin 2.4 %THgb (0.4-20.1); HCO3 ABG 25.1 mmol/L (22-26); HGB O2 Sat 92.8 % (95-100); Ionized Calcium Level - ABG 1.2 mmol/L (1.1-1.4); Methemoglobin 1.4 % (0.4-1.5); Oxygen Device NC; Oxygen Saturation ABG 96.4; PO2 ABG 83.6 mmHg (80.0-100.0); Potassium Level - ABG 7.5 mmol/L (3.5-5.0); Total Hemoglobin 8.3 g/dL (14-18)
[2024-05-18 23:42] LABS: Lactic Sepsis W/Reflex 1.1 mmol/L (0.5-2.2)
[2024-05-18 23:45] LABS: Troponin(5th) Baseline 107 ng/L (0-15)
[2024-05-18 23:52] LABS: Alanine Aminotransferase 13 U/L (0-41); Albumin Level 4.1 g/dL (3.5-5.2); Alkaline Phosphatase 178 U/L (40-130); Aspartate Amino Transferase 21 U/L (0-40); Blood Urea Nitrogen 40 mg/dL (8-23); Calcium 9.2 mg/dL (8.5-10.5); Carbon Dioxide 25 mmol/L (22-29); Chloride 100 mmol/L (98-107); Creatinine Clr Calc Pharmacy 36.5428; Globulin 3.6 g/dL (1.3-4.6); Glomerular Filtration Rate 20.9 mL/min (90-130); Glucose 228 mg/dL (65-115); NT Pro B Type Natriuretic Pept 1743 pg/mL (0-125); Osmolality Calculated 295 mOsm/kg (285-295); Sodium 134 mmol/L (136-145); Total Bilirubin 0.2 mg/dL (0.15-1.2); Total Protein 7.7 g/dL (6.6-8.7)
[2024-05-19] VITALS (123 sets, daily range): BP systolic 153–223; BP diastolic 63–140; PULSE 60–85; RESP 12–29; TEMP 36.6–36.9; O2SAT 90–100; BMI 47.0
[2024-05-19] LABS: Covid PCR NEGATIVE (Negative); Influenza A NEGATIVE (Negative); Influenza B NEGATIVE (Negative); Respiratory Syncytial Virus Ce NEGATIVE (Negative)
--- NOTE | 2024-05-19 00:04 | P.HP_ITS ---
Providers/Chief Complaint 2 Primary Care Provider: Rachel Bills MD Chief Complaint: WEAKNESS History of Present Illness Juan Thomas is a 68 year old male with a past medical history significant for hypertension, heart failure with a preserved ejection fraction, atrial fibrillation, type 2 diabetes mellitus, GERD, chronic renal failure, hyperkalemia, anemia, and multiple other comorbidities who presents to the emergency department with severe weakness. He reports onset yesterday. He describes his weakness as severe weakness in his bilateral lower extremities producing gait difficulty. He reports prior to arrival he was having to use his walker which he typically uses canes; however the walker was not enough and he became weak in his kitchen and had to sit down onto the floor. Had to call EMS for assistance. He endorses associated chronic lower extremity edema and wet cough. States his cough has been slightly worse for the past week. Denies fevers, chills, nausea or emesis. Reports chronic home oxygen use. In the emergency department, he is found to have severe hyperkalemia. Patient has a known history of prior hyperkalemic episodes. He denies prior history of temporary dialysis needs. In the ED, he was medically treated. ED provider contacted nephrology on-call for further recommendations. Review of Systems 2 Narrative: A complete review of systems was obtained and is negative except as stated in HPI. Medications/Allergies Home Medications Medication Instructions Recorded Confirmed Last Taken Type clonazepam 1 mg tablet 0.5 mg PO BEDTIME PRN Sleep 08/07/21 01/24/24 1 Day Ago History ~01/23/24 insulin aspart U-100 100 unit/mL See Rx Instructions .Route .COMPLEX 08/07/21 01/24/24 1 Day Ago History (3 mL) subcutaneous pen (Novolog ~01/23/24 FlexPen U-100 Insulin aspart) sertraline 100 mg tablet 100 mg PO QAM 08/07/21 01/24/24 01/24/24 History levocetirizine 5 mg tablet 5 mg PO DAILY 02/16/22 01/24/24 01/24/24 History levothyroxine 25 mcg tablet 25 mcg PO DAILY 02/16/22 01/24/24 01/24/24 History ferrous sulfate 325 mg (65 mg 325 mg PO BID 03/06/22 01/24/24 01/24/24 History iron) tablet (FeroSul) silver sulfadiazine 1 % topical 1 applic topical BID #50 grams 03/15/23 01/24/24 01/17/24 Rx cream (Silvadene) simvastatin 10 mg tablet 10 mg PO DAILY 12/16/23 01/24/24 01/24/24 History tamsulosin 0.4 mg capsule 0.4 mg PO DAILY 12/16/23 01/24/24 01/24/24 History doxycycline monohydrate 100 mg 100 mg PO BID #10 tabs 12/19/23 01/24/24 2 Weeks Ago Rx tablet ~01/10/24 hydralazine 50 mg tablet 50 mg PO TID #90 tabs 12/19/23 01/24/24 01/24/24 Rx insulin glargine 100 unit/mL (3 20 unit (0.2 mL) SUBCUT BID #10 mL 12/19/23 01/24/24 2 Days Ago Rx mL) subcutaneous pen (Lantus ~01/22/24 Solostar U-100 Insulin) ipratropium 0.5 mg-albuterol 3 mg 3 ml inhalation Q6H PRN Shortness 12/19/23 01/24/24 01/24/24 Rx (2.5 mg base)/3 mL nebulization Of Breath #280 mL soln isosorbide mononitrate 30 mg 30 mg PO BID #60 tabs 12/19/23 01/24/24 01/24/24 Rx tablet,extended release 24 hr metoprolol tartrate 25 mg tablet 50 mg (2 x 25 mg) PO BID@0900,2100 12/19/23 01/24/24 01/24/24 Rx #120 tabs nystatin 100,000 unit/gram topical 1 applic topical BID #60 grams 12/19/23 01/24/24 01/19/24 Rx powder (Nystop) pantoprazole 40 mg tablet,delayed 40 mg PO BID #60 tabs 12/19/23 01/24/24 01/24/24 Rx release pramipexole 0.25 mg tablet 0.25 mg PO TID PRN Restless Leg 12/19/23 01/24/24 01/24/24 Rx Syndrome #90 tabs bumetanide 1 mg tablet 2 mg (2 x 1 mg) PO BID #60 tabs 01/26/24 01/24/24 01/24/24 Rx Allergies Allergy/AdvReac Type Severity Reaction Status Date / Time No Known Allergies Allergy Verified 05/18/24 22:52 PFSH Acute 2 PFSH: Medical History Anemia Acute hyperkalemia Hypotension Hypochromic microcytic anemia Anxiety and depression Normocytic anemia Heart failure Atrial flutter Pneumonia Respiratory failure Iron deficiency anemia Brain aneurysm Necrotizing fasciitis of shoulder region Diabetes Surgical History Status post colonoscopy (10/18/21) H/O esophagogastroduodenoscopy (10/18/21) History of shoulder surgery Family History Grandfather Clotting disorder Family/Other CAD (coronary artery disease) Cancer Diabetes Stroke Grandmother CAD (coronary artery disease) Dementia Father Cancer Lung disease Mother Cancer Denies family history of Chronic kidney disease (CKD) Suicide Anesthesia complication Bleeding disorder Social History Smoking and tobacco/nicotine status: current every day tobacco/nicotine user (1 ppd, smoked x 50 years) cigarettes Packs smoked per day: 2 Years cigarettes smoked: 50 [ Other cigarette details: started at age 16] Alcohol intake: never Substance/Drug Use: never Vitals/I&O/Wt Last Vital Signs Temp 98.0 F 05/18/24 22:47 Pulse 60 05/18/24 23:45 Resp 16 05/18/24 23:45 BP 197/72 05/18/24 23:30 Pulse Ox 98 05/18/24 23:45 O2 Del Method Nasal Cannula 05/18/24 22:52 O2 Flow Rate 4 05/18/24 22:52 Weight last 48 hrs Weight 154.221 kg Physical Exam 2 Narrative: General: Patient is awake and alert. Pleasant. Head: Normocephalic. Atraumatic. EOM intact. Neck: No JVD. Cardiovascular: RRR. No gallops. No murmurs. Bilateral lower extremity edema present. Lungs: Breath sounds are diminished bilateral bases, no use of accessory muscles, no crackles or wheezes. Cough present. Skin: No jaundice. No rashes. Abdomen: Normal bowel sounds, abdomen soft and nontender. Genito Urinary: Genital exam not performed since complaints not related. Rectal: Rectal exam not performed since no symptoms indicated blood loss. Extremities: No cyanosis or clubbing. Musculoskeletal: No swollen or erythematous joints. Lower extremities diffusely weak. Neurological: Moves all 4 extremities. No myoclonus. Data 05/18/24 23:12 05/18/24 23:12 Micro: Microbiology 05/18/24 23:12 Blood Culture - Preliminary Blood SPECIMEN COLLECTED A&P Assessment and plan (1) Hyperkalemia: Severe life-threatening hyperkalemia to 8.0 Status post calcium gluconate, insulin/dextrose, Kayexalate in ED Trend potassium level Continuous telemetry monitoring Nephrology evaluated prior to my evaluation, follow-up recommendations (2) Acute kidney injury superimposed on CKD: Acute acute kidney injury on chronic kidney disease Patient started on lactated Ringer's by nephrology Urine analysis with urine electrolytes pending Strict I's and O's Renally dose medications Serial labs (3) Chronic hypoxemic respiratory failure: Continue supplemental oxygen Chest x-ray reviewed Breathing treatments as needed (4) Iron deficiency anemia: Hemoglobin at recent baseline Iron labs pending Continue to monitor (5) Diabetes mellitus type 2, uncontrolled, with complications: Continue long-acting insulin at reduced home dose Sliding scale insulin correction (6) Atrial fibrillation: Continue beta-rustam Telemetry monitoring (7) Heart failure with preserved ejection fraction: Strict I's and O's Daily weights IV Bumex ordered Continue home beta-rustam Plan DVT prophylaxis: SCD Attestations 2 Medical Necessity Statement*: Patient presents with severe weakness of lower extremities, found to have severe life-threatening hyperkalemia requiring pharmacological treatment, nephrology evaluation, IV fluids, possibly dialysis, and supportive care. Coding Level [facility] Care Code [facility] Hyperkal[facility] E87.5 Acute kidney injury superimposed on CKD N17.9; N18.9 Chronic hypoxemic respiratory failure J96.11 Iron deficiency anemia D50.9 Diabetes mellitus type 2, uncontrolled, with complications Atrial fibrillation I48.91 Heart failure with preserved ejection fraction I50.30
[2024-05-19] MEDS: calcium gluconate 0.1 gm/mL 10% SDV 10mL 1 GM IVP (00:26)
[2024-05-19] MEDS: insulin regular-human 100 units/1 mL 10 UNIT IVP (00:26)
--- NOTE | 2024-05-19 00:35 | USR_ITS ---
PROCEDURE INFORMATION: Exam: US Retroperitoneal, Complete, Kidneys and Bladder Exam date and time: 05/19/2024 1:13 AM Age: 68 years old Clinical indication: Other: Ty TECHNIQUE: Imaging protocol: Real-time ultrasound of the retroperitoneum with image documentation. Complete exam focused on the bilateral kidneys and urinary bladder. COMPARISON: US abdomen limited [id number] 01/26/2018 1:56 PM FINDINGS: Right kidney: The right kidney is normal. There is no evidence of renal calcification or hydronephrosis. The right kidney measures 9.6 cm in length. Left kidney: 3 cm simple appearing left renal cyst. Kidney is otherwise normal. There is no evidence of renal calcification or hydronephrosis. The left kidney measures 13.5 cm in length. Urinary bladder: The bladder is decompressed and contains a Briceño catheter. US/US renal BI* [id number] IMPRESSION: Unremarkable renal ultrasound.
--- NOTE | 2024-05-19 00:41 | P.CONIM_ITS ---
Providers/Reason For Consult 2 Consulting Physician/Specialty*: bernie perdomo md/ telenephrology Reason for Consult*: Acute kidney injury and hyperkalemia Requesting Physician: Dr Kothari and Dr Alonso Attending Physician: DR Kothari Primary Care Provider: Rachel Bills MD History of Present Illness History of Present Illness Juan Thomas is a 68 year old male Diabetic hypertensive CKD stage IV baseline creatinine 2.5 mg/dL from previous NSAID use hypertension obesity and diabetes. Patient also has history of hyperkalemia in the past. The patient presentsWith weakness and he fell today. Patient also states that he had a cough. Patient denies any NSAID use. The patient does have shortness of breath. Patient has minimal edema. Review of Systems 2 Narrative: Weak, fell, shortness of breath, cough, wheezing. Patient smokes and has known COPD. Medications/Allergies Home Medications Medication Instructions Recorded Confirmed Last Taken Type clonazepam 1 mg tablet 0.5 mg PO BEDTIME PRN Sleep 08/07/21 01/24/24 1 Day Ago History ~01/23/24 insulin aspart U-100 100 unit/mL See Rx Instructions .Route .COMPLEX 08/07/21 01/24/24 1 Day Ago History (3 mL) subcutaneous pen (Novolog ~01/23/24 FlexPen U-100 Insulin aspart) sertraline 100 mg tablet 100 mg PO QAM 08/07/21 01/24/24 01/24/24 History levocetirizine 5 mg tablet 5 mg PO DAILY 02/16/22 01/24/24 01/24/24 History levothyroxine 25 mcg tablet 25 mcg PO DAILY 02/16/22 01/24/24 01/24/24 History ferrous sulfate 325 mg (65 mg 325 mg PO BID 03/06/22 01/24/24 01/24/24 History iron) tablet (FeroSul) silver sulfadiazine 1 % topical 1 applic topical BID #50 grams 03/15/23 01/24/24 01/17/24 Rx cream (Silvadene) simvastatin 10 mg tablet 10 mg PO DAILY 12/16/23 01/24/24 01/24/24 History tamsulosin 0.4 mg capsule 0.4 mg PO DAILY 12/16/23 01/24/24 01/24/24 History doxycycline monohydrate 100 mg 100 mg PO BID #10 tabs 12/19/23 01/24/24 2 Weeks Ago Rx tablet ~01/10/24 hydralazine 50 mg tablet 50 mg PO TID #90 tabs 12/19/23 01/24/24 01/24/24 Rx insulin glargine 100 unit/mL (3 20 unit (0.2 mL) SUBCUT BID #10 mL 12/19/23 01/24/24 2 Days Ago Rx mL) subcutaneous pen (Lantus ~01/22/24 Solostar U-100 Insulin) ipratropium 0.5 mg-albuterol 3 mg 3 ml inhalation Q6H PRN Shortness 12/19/23 01/24/24 01/24/24 Rx (2.5 mg base)/3 mL nebulization Of Breath #280 mL soln isosorbide mononitrate 30 mg 30 mg PO BID #60 tabs 12/19/23 01/24/24 01/24/24 Rx tablet,extended release 24 hr metoprolol tartrate 25 mg tablet 50 mg (2 x 25 mg) PO BID@0900,2100 12/19/23 01/24/24 01/24/24 Rx #120 tabs nystatin 100,000 unit/gram topical 1 applic topical BID #60 grams 12/19/23 01/24/24 01/19/24 Rx powder (Nystop) pantoprazole 40 mg tablet,delayed 40 mg PO BID #60 tabs 12/19/23 01/24/24 01/24/24 Rx release pramipexole 0.25 mg tablet 0.25 mg PO TID PRN Restless Leg 12/19/23 01/24/24 01/24/24 Rx Syndrome #90 tabs bumetanide 1 mg tablet 2 mg (2 x 1 mg) PO BID #60 tabs 01/26/24 01/24/24 01/24/24 Rx Allergies Allergy/AdvReac Type Severity Reaction Status Date / Time No Known Allergies Allergy Verified 05/18/24 22:52 PFSH Acute 2 PFSH: Medical History Anemia Acute hyperkalemia Hypotension Hypochromic microcytic anemia Anxiety and depression Normocytic anemia Heart failure Atrial flutter Pneumonia Respiratory failure Iron deficiency anemia Brain aneurysm Necrotizing fasciitis of shoulder region Diabetes Surgical History Status post colonoscopy (10/18/21) H/O esophagogastroduodenoscopy (10/18/21) History of shoulder surgery Family History Grandfather Clotting disorder Family/Other CAD (coronary artery disease) Cancer Diabetes Stroke Grandmother CAD (coronary artery disease) Dementia Father Cancer Lung disease Mother Cancer Denies family history of Chronic kidney disease (CKD) Suicide Anesthesia complication Bleeding disorder Social History Smoking and tobacco/nicotine status: current every day tobacco/nicotine user (1 ppd, smoked x 50 years) cigarettes Packs smoked per day: 2 Years cigarettes smoked: 50 [ Other cigarette details: started at age 16] Alcohol intake: never Substance/Drug Use: never Vitals/I&O/Wt Last Vital Signs Temp 98.0 F 05/18/24 22:47 Pulse 60 05/18/24 23:45 Resp 16 05/18/24 23:45 BP 197/72 05/18/24 23:30 Pulse Ox 98 05/18/24 23:45 O2 Del Method Nasal Cannula 05/18/24 22:52 O2 Flow Rate 4 05/18/24 22:52 Weight last 48 hrs Weight 154.221 kg Physical Exam 2 Narrative: Morbidly obese man in bed vital signs noted. Patient is hypertensive. HEENT normocephalic atraumatic. Neck obese supple. Lungs wheezes and dull bases. Heart regular positive S1-S2. Abdomen is soft positive bowel sounds. Extremities bilateral Movement of legs. Minimal left lower extremity edema Neuro awake alert oriented x 3 Data 05/18/24 23:12 05/18/24 23:12 Micro: Microbiology 05/18/24 23:12 Blood Culture - Preliminary Blood SPECIMEN COLLECTED A&P Assessment and plan (1) Acute kidney injury superimposed on CKD: 68-year-old gentleman obesity hypertension insulin-dependent diabetes, COPD, HFpEF. The patient presents with weakness and shortness of breath involved. 1. CKD stage IV baseline creatinine 2.5 mg/dL from cardiorenal syndrome, hypertension, diabetes and previous NSAID use. 2. Acute on chronic renal failure question of progression versus question obstruction question medication. Patient denies any NSAID use ADRIANA inhibitor's ARB or Aldactone. 3. Hyperkalemia will treat medically now with Kayexalate calcium D50 regular insulin and albuterol. Will monitor labs every 4 hours if potassium does not improve I advised him that he will need to start dialysis. I explained the risk and benefits of hemodialysis and he consents to dialysis as needed. For now we will start Bumex as patient has heart failure preserved EF and in the past when he presented with acute kidney injury he responded to Bumex. Will also give lactated Ringer's to help force the diuresis. 4. Please do full anemia workup. 5. PTH was 81 in December 2023-Can repeat can check vitamin D level. Also check TSH was normal in the past. Patient was seen and examined using audiovisual equipment with the aid of a nurse. The patient consented to telehealth. and hemodialysis is needed. Plan see above Consult Attestations 2 Medical Necessity Statement: hyperkalemia Time Spent in Patient Care: Greater than 35 minutes (>than 50% of time spent in counselling and/or direct pt care on unit) . Coding Level of Care Code Acute Code for Chg Fwd Diagnoses Acute kidney injury superimposed on CKD N17.9; N18.9
[2024-05-19] MEDS: dextrose 10% 250 ML 1000 ML IV (00:50)
--- NOTE | 2024-05-19 00:50 | ECG_ITS ---
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 Measurements Intervals [place] Rate: 65 P: 42 WV: 173 QRS: -10 QRSD: 125 T: 66 QT: 392 QTc: 410 Interpretive Statements SINUS RHYTHM MODERATE INTRAVENTRICULAR CONDUCTION DELAY [105+ ms QRS DURATION, 80+ ms Q/S IN V1/V2, NO Q AND 60+ ms R IN I/aVL/V5/V6] Compared to ECG 01/24/2024 13:11:13 Intraventricular conduction delay now present Sinus bradycardia no longer present First degree AV block no longer present Myocardial infarct finding no longer present Electronically Signed On 05-19-2024 15:14:52 CARTOGRAPHIC ENGINEER by Bora Gómez M.D. [id number]
[2024-05-19 01:18] LABS: Bilirubin Urine Negative (Negative); Blood Urine Negative (Negative); Glucose Urine UA Trace (Normal); Ketones Urine Negative (Negative); Leukocyte Esterase Urine Negative (Negative); Nitrate Urine Negative (Negative); Protein Urine 3+ (Negative); Specific Gravity, Urine 1.013 (1.005-1.030); Urine Appearance Clear (CLEAR); Urine Color Yellow (Yellow); Urobilinogen Urine 0.2 mg/dL (Negative)
[2024-05-19 01:20] LABS: Bacteria Urine None Seen /hpf; RBC Urine 0-2 /hpf (0-2); Squamous Epithelial Cell Urine 0-5 /hpf (0-5); WBC Urine 0-5 /hpf (0-5)
[2024-05-19 01:36] LABS: Creatine Phosphokinase 148 U/L (39-308)
[2024-05-19 01:44] LABS: Hepatitis C Virus Antibody Non-Reactive (Nonreactive)
[2024-05-19] MEDS: sodium polystyrene sulfonate 15 gm/60 mL Btl PO (01:45)
[2024-05-19 01:47] LABS: Potassium 7.4 mmol/L (3.5-5.1)
[2024-05-19] MEDS: sodium polystyrene sulfonate 15 gm/60 mL Btl 30 GM PO ×3 (02:54→20:21)
[2024-05-19] MEDS: lactated ringers 1,000 ML 100 ML IV (02:55)
[2024-05-19] MEDS: bumetanide 0.25 mg/mL SDV 4 mL 2 MG IVP (02:55)
[2024-05-19] MEDS: bumetanide 0.25 mg/mL SDV 4 mL 2 MG IV (03:03)
[2024-05-19] MEDS: ropinirole 0.25 mg Tablet PO ×4 (04:13→21:21)
[2024-05-19] MEDS: hyDRALAzine 20 mg/mL INJ 1 mL 10 MG IVP ×3 (04:18→14:55)
--- NOTE | 2024-05-19 04:50 | ECG_ITS ---
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 Measurements Intervals [place] Rate: 70 P: -1 CT: 157 QRS: 9 QRSD: 112 T: 68 QT: 380 QTc: 412 Interpretive Statements SINUS RHYTHM MODERATE INTRAVENTRICULAR CONDUCTION DELAY [105+ ms QRS DURATION, 80+ ms Q/S IN V1/V2, NO Q AND 60+ ms R IN I/aVL/V5/V6] Compared to ECG 05/18/2024 22:52:04 No significant changes Electronically Signed On 05-19-2024 15:14:38 COMMUNITY HEALTH PLANNING DIRECTOR by Bora Gómez M.D. [id number]
[2024-05-19 05:51] LABS: Uric Acid 10.4 mg/dL (3.4-7.0)
[2024-05-19 05:54] LABS: Ferritin 61 ng/mL (30-400); Iron 31 ug/dL (59-158); Percent Saturation 9.6 % (20-50); Total Iron Binding Capacity 321 mcg/dl; Troponin 5 6HR Delta -0.5 ng/L (0-12); Unsaturated Iron Binding 290 ug/dL (112-347)
[2024-05-19 05:55] LABS: Troponin 5 6HR 106.5 ng/L (0-15)
[2024-05-19 06:06] LABS: Blood Urea Nitrogen 42 mg/dL (8-23); Calcium 9.2 mg/dL (8.5-10.5); Calcium 9.3 mg/dL (8.5-10.5); Carbon Dioxide 25 mmol/L (22-29); Chloride 100 mmol/L (98-107); Creatinine Clr Calc Pharmacy 41.6815; Glomerular Filtration Rate 23.6 mL/min (90-130); Glucose 153 mg/dL (65-115); Osmolality Calculated 298 mOsm/kg (285-295); Sodium 137 mmol/L (136-145)
[2024-05-19 06:09] LABS: 25 Hydroxy Vitamin D 6 ng/mL (30-100)
[2024-05-19 06:13] LABS: Parathyroid Hormone 36.7 pg/mL (15-65)
[2024-05-19 06:14] LABS: Potassium, Radom Urine 38 mmol/L; Urine Random Chloride 76 mmol/L; Urine Random Sodium 73 mmol/L
[2024-05-19 08:20] LABS: Glucose Point of Care 157 mg/dL (70-110)
--- NOTE | 2024-05-19 09:31 | P.PN_ITS ---
Subjective 2 Subjective: feels better. dec sob. excellent diuresis Medications: Reviewed: Yes Medication Review Details: Current Medications Acetaminophen (Acetaminophen 325 Mg Tablet) 650 mg PO Q6H PRN PRN Reason: Mild/Mod Pain Or Temp >/= 101 Glucagon (Glucagon 1 Mg/Ml Kit 1 Ml) 1 mg IM ONCE PRN; Protocol PRN Reason: Adult Acute Hypoglycemia Nursing Prot. Hydralazine HCl (Hydralazine 20 Mg/Ml Inj 1 Ml) 10 mg IVP Q4H PRN PRN Reason: SBP>180mmHg or DBP>110mmHG Last Admin: 05/19/24 04:18 Dose: 10 mg Dextrose (D10w) 250 mls @ 1,000 mls/hr IV PRN PRN PRN Reason: HYPOGLYCEMIA Last Infusion: 05/19/24 01:36 Dose: Infused Lactated Ringer's (Lactated Ringers) 1,000 mls @ 100 mls/hr IV .Q10H [facility] Last Admin: 05/19/24 02:55 Dose: 100 mls/hr Dextrose (D5w) 500 mls @ 0 mls/hr IV ONCE PRN; Protocol PRN Reason: Adult Acute Hypoglycemia Prot Dextrose (D10w) 125 mls @ 750 mls/hr IV PRN PRN; Protocol PRN Reason: Adult Acute Hypoglycemia Nursing Protocol Dextrose (D10w) 250 mls @ 1,000 mls/hr IV PRN PRN; Protocol PRN Reason: Adult Acute Hypoglycemia Nursing Protocol Insulin Glargine (Insulin Glargine 100 Units/1 Ml) 16 unit SUBCUT BID ARM[facility]O Insulin Human Lispro (Insulin Lispro 100 Unit/1 Ml) 0 unit SUBCUT WM&BEDTIME ARM[facility]O; Protocol Metoprolol Tartrate (Metoprolol Tartrate 50 Mg Tablet) 50 mg PO BID@0900,2100 [facility] Ondansetron HCl (Ondansetron 2 Mg/Ml Sdv 2 Ml) 4 mg IVP Q8H PRN PRN Reason: vomiting, or N/V if npo Ondansetron HCl (Ondansetron 4 Mg Tablet) 4 mg PO Q8H PRN PRN Reason: NAUSEA Ropinirole HCl (Ropinirole 0.25 Mg Tablet) 0.25 mg PO TID [facility] Last Admin: 05/19/24 04:13 Dose: 0.25 mg Vitals/I&O/Wt Last Vital Signs Temp 98.4 F 05/19/24 02:01 Pulse 73 05/19/24 06:20 Resp 21 H 05/19/24 06:00 BP 181/70 05/19/24 06:20 Pulse Ox 97 05/19/24 06:20 O2 Del Method Nasal Cannula 05/19/24 02:14 O2 Flow Rate 4 05/18/24 22:52 05/18/24 05/19/24 05/19/24 22:59 06:59 14:59 Intake Total 250 / 250 Balance 250 / 250 Weight last 48 hrs Weight 160.572 kg Weight 161.5 kg Weight 154.221 kg Physical Exam 2 Narrative: Morbidly obese man in bed vital signs noted. Patient is hypertensive. HEENT normocephalic atraumatic. Neck obese supple. Lungs improved ir movement, dull bases. Heart regular positive S1-S2. Abdomen is soft positive bowel sounds. Extremities bilateral Movement of legs. Minimal left lower extremity edema Neuro awake alert oriented x 3 Urinary Catheter Management: Briceño: Cath Placed During This Visit: yes Reason for Continuing Indwelling Catheter: Accurate Measurement of Urinary Output in Critically Ill Patients Urinary Catheter Date of Insertion: 05/19/24 Data 05/18/24 23:12 05/19/24 05:20 Micro: Microbiology 05/19/24 00:54 Blood Culture - Preliminary Blood SPECIMEN COLLECTED 05/18/24 23:12 Blood Culture - Preliminary Blood SPECIMEN COLLECTED A&P Assessment and plan (1) Acute kidney injury superimposed on CKD: 68-year-old gentleman obesity hypertension insulin-dependent diabetes, COPD, HFpEF. The patient presents with weakness and shortness of breath involved. 1. CKD stage IV baseline creatinine 2.5 mg/dL from cardiorenal syndrome, hypertension, diabetes and previous NSAID use. 2. Acute on chronic renal failure question of progression versus question obstruction question medication. Patient denies any NSAID use ADRIANA inhibitor's ARB or Aldactone. -no hydronephrosis on renal us 3. Hyperkalemia -improving w/ diuresis and med management. k was 8. is now 6 4. anemia- give iv iron 5. PTH is normal esrd. replace vit d. Also check TSH was normal in the past. Patient was seen and examined using audiovisual equipment with the aid of a nurse. The patient consented to telehealth. and hemodialysis is needed. Plan see above Attestations 2 Medical Necessity Statement*: chf, shaji, hyperkalemia Time Spent in Patient Care: Greater than 35 minutes (>than 50% of time spent in counselling and/or direct pt care on unit) . Coding Level of Care Code Acute Code for Chg Fwd Diagnoses Acute kidney injury superimposed on CKD N17.9; N18.9
[2024-05-19] MEDS: insulin lispro 100 unit/1 mL SUBCUT ×4 (10:06→21:51)
[2024-05-19] MEDS: insulin glargine 100 units/1 mL 16 UNIT SUBCUT ×2 (10:06→17:46)
[2024-05-19 10:08] LABS: Anion Gap 18.5 (5-19); Blood Urea Nitrogen 38 mg/dL (8-23); Calcium 8.9 mg/dL (8.5-10.5); Carbon Dioxide 25 mmol/L (22-29); Chloride 100 mmol/L (98-107); Glomerular Filtration Rate 27.1 mL/min (90-130); Glucose 160 mg/dL (65-115); Osmolality Calculated 298 mOsm/kg (285-295); Potassium 5.5 mmol/L (3.5-5.1); Sodium 138 mmol/L (136-145)
[2024-05-19] MEDS: bumetanide 0.25 mg/mL SDV 4 mL 1 MG IVP ×2 (10:08→21:51)
[2024-05-19] MEDS: ferric gluconate 125 MG in sodium chloride 0.9% (100 ml) 100 ML 110 MG IV (10:08)
[2024-05-19] MEDS: metoprolol tartrate 50 mg Tablet PO ×2 (10:08→21:21)
[2024-05-19 10:50] LABS: Thyroid Stimulating Hormone 1.66 uIU/mL (0.27-4.20)
[2024-05-19] MEDS: gabapentin 300 mg Capsule PO ×3 (10:57→21:21)
[2024-05-19] MEDS: pramipexole 0.25 mg Tablet PO (10:57)
[2024-05-19 11:28] LABS: Glucose Point of Care 212 mg/dL (70-110)
[2024-05-19 12:44] LABS: Glucose Point of Care 220 mg/dL (70-110)
--- NOTE | 2024-05-19 14:32 | PM.MISC ---
Miscellaneous Note Note: Seen this morning. Patient being seen by nephrology. Potassium down to 6.0 today. Repeat potassium BMP has been ordered. ? Avoid nephrotoxic medications. Follow nephrology recommendations. ? No urgent need for dialysis. Recheck BMP at 6 PM and again tomorrow morning.
--- NOTE | 2024-05-19 15:16 | PC.NURSE ---
Doctor Zohra was contacted about patient bringing in their own Bipap from home. Doctor okayed the patient using their own Bipap.
[2024-05-19 17:02] LABS: Glucose Point of Care 214 mg/dL (70-110)
--- NOTE | 2024-05-19 18:43 | CTR_ITS ---
PROCEDURE INFORMATION: Exam: CT Chest Without Contrast; Diagnostic Exam date and time: 05/19/2024 8:47 PM Age: 68 years old Clinical indication: Other: Weakness; Additional info: R/O pneumonia TECHNIQUE: Imaging protocol: Diagnostic computed tomography of the chest without contrast. Radiation optimization: All CT scans at this facility use at least one of these dose optimization techniques: automated exposure control; mA and/or kV adjustment per patient size (includes targeted exams where dose is matched to clinical indication); or iterative reconstruction. COMPARISON: CT chest abdpel w/*[id number] 02/16/2022 1:16 AM RADIATION DOSE METRICS: Total DLP (mGy-cm): 851.83 FINDINGS: Lungs: There is dependent atelectasis posterior left lower lobe and there is also some linear or platelike atelectasis in the lower lobe corresponding with the findings on the recent chest radiograph. No focal consolidation or pneumonia is identified. Pleural spaces: Unremarkable. No pneumothorax. No pleural effusion. Heart: The heart is mildly enlarged. There is visible intraventricular septum and low-density of blood within the heart suggests significant anemia. Please correlate with appropriate laboratory values. Coronary arteries: There is severe atherosclerotic calcification of the coronary arteries. Lymph nodes: There is some calcified hilar lymph nodes in keeping with old granulomatous disease. There are small paratracheal lymph nodes but no adenopathy. Vasculature: There is atherosclerotic calcification of the aortic arch and descending thoracic aorta. There is no thoracic aortic aneurysm. Bones/joints: The thoracic spine demonstrates moderate degenerative changes at multiple levels. There is no evidence of acute fracture. Soft tissues: Unremarkable. CT/CT chest con [id number] IMPRESSION: 1. Mild basilar atelectasis 2. Findings suggesting significant anemia.
[2024-05-19 19:23] LABS: Procalcitonin 0.11 ng/mL (0-0.5)
[2024-05-19 19:43] LABS: Anion Gap 20.5 (5-19); Blood Urea Nitrogen 40 mg/dL (8-23); Carbon Dioxide 26 mmol/L (22-29); Chloride 98 mmol/L (98-107); Glomerular Filtration Rate 28.4 mL/min (90-130); Glucose 207 mg/dL (65-115); Osmolality Calculated 302 mOsm/kg (285-295); Sodium 138 mmol/L (136-145)
[2024-05-19 19:48] LABS: Potassium 6.5 mmol/L (3.5-5.1)
[2024-05-19] MEDS: cefTRIAXone 1,000 mg SDV 1000 MG IVP (20:10)
[2024-05-19] MEDS: AZITHROMYCIN ADD-Vantage 500 MG in 0.9% NaCl ADD-Vantage 250 ML 250 MG IV (20:11)
[2024-05-19] MEDS: bumetanide 0.25 mg/mL SDV 10 mL 1 MG IVP (20:29)
[2024-05-19 21:27] LABS: Glucose Point of Care 262 mg/dL (70-110)
[2024-05-20] VITALS (40 sets, daily range): BP systolic 145–202; BP diastolic 62–107; PULSE 57–75; RESP 12–29; TEMP 35.9–36.8; O2SAT 90–99
[2024-05-20 01:43] LABS: Anion Gap 15.7 (5-19); Blood Urea Nitrogen 43 mg/dL (8-23); Calcium 8.8 mg/dL (8.5-10.5); Carbon Dioxide 27 mmol/L (22-29); Chloride 101 mmol/L (98-107); Creatinine Clr Calc Pharmacy 43.1418; Glomerular Filtration Rate 24.7 mL/min (90-130); Glucose 87 mg/dL (65-115); Osmolality Calculated 296 mOsm/kg (285-295); Potassium 5.7 mmol/L (3.5-5.1); Sodium 138 mmol/L (136-145)
[2024-05-20 05:29] LABS: Basophils # 0.1 10^3/uL (0.0-0.1); Basophils % 0.5 %; Eosinophils # 0.2 10^3/uL (0.0-0.8); Hematocrit 24.9 % (37-53); Lymphocytes # 1.2 10^3/uL (0.8-4.8); Lymphocytes % 12.1 %; Mean Corpuscular HGB Conc 30.5 g/dL (30-55); Mean Corpuscular Hemoglobin 28.7 pg (27-33); Mean Platelet Volume 9.7 fL (7.4-10.4); Neutrophils # 7.44 10^3/uL (1.8-7.7); Neutrophils % 74.6 %; Nucleated Red Blood Cells % 0 %; Platelet Count 188 10^3/cmm (157-399); Red Blood Count 2.65 10^6/uL (3.85-5.65); Red Cell Distribution Width 13.7 % (12.1-15.1); White Blood Count 9.98 10^3/uL (3.29-11.43)
[2024-05-20 05:57] LABS: Alanine Aminotransferase 11 U/L (0-41); Albumin Level 3.5 g/dL (3.5-5.2); Alkaline Phosphatase 133 U/L (40-130); Anion Gap 15.2 (5-19); Aspartate Amino Transferase 20 U/L (0-40); Blood Urea Nitrogen 45 mg/dL (8-23); Calcium 8.7 mg/dL (8.5-10.5); Carbon Dioxide 27 mmol/L (22-29); Chloride 101 mmol/L (98-107); Creatinine Clr Calc Pharmacy 44.8675; Globulin 3.2 g/dL (1.3-4.6); Glomerular Filtration Rate 25.8 mL/min (90-130); Glucose 178 mg/dL (65-115); Magnesium 1.9 mg/dL (1.7-2.3); Osmolality Calculated 302 mOsm/kg (285-295); Potassium 5.2 mmol/L (3.5-5.1); Sodium 138 mmol/L (136-145); Total Bilirubin 0.2 mg/dL (0.15-1.2); Total Protein 6.7 g/dL (6.6-8.7)
[2024-05-20] MEDS: pramipexole 0.25 mg Tablet PO (07:26)
--- NOTE | 2024-05-20 07:38 | PM.PN ---
Subjective Subjective: The patient was seen and examined. The patient is urinating well. Decreased shortness of breath no nausea no vomiting no fevers or chills no headaches. Patient would like to have his Briceño catheter removed. Medications: Reviewed: Yes Medication Review Details: Current Medications Acetaminophen (Acetaminophen 325 Mg Tablet) 650 mg PO Q6H PRN PRN Reason: Mild/Mod Pain Or Temp >/= 101 Bumetanide (Bumetanide 0.25 Mg/Ml Sdv 4 Ml) 1 mg IVP Q12H ARMANDO Last Admin: 05/19/24 21:51 Dose: 1 mg Ceftriaxone Sodium (Ceftriaxone 1,000 Mg Sdv) 1,000 mg IVP Q24H ARMANDO; Protocol Last Admin: 05/19/24 20:10 Dose: 1,000 mg Gabapentin (Gabapentin 300 Mg Capsule) 300 mg PO TID ARMANDO Last Admin: 05/19/24 21:21 Dose: 300 mg Glucagon (Glucagon 1 Mg/Ml Kit 1 Ml) 1 mg IM ONCE PRN; Protocol PRN Reason: Adult Acute Hypoglycemia Nursing Prot. Hydralazine HCl (Hydralazine 20 Mg/Ml Inj 1 Ml) 10 mg IVP Q4H PRN PRN Reason: SBP>180mmHg or DBP>110mmHG Last Admin: 05/19/24 14:55 Dose: 10 mg Dextrose (D5w) 500 mls @ 0 mls/hr IV ONCE PRN; Protocol PRN Reason: Adult Acute Hypoglycemia Prot Dextrose (D10w) 125 mls @ 750 mls/hr IV PRN PRN; Protocol PRN Reason: Adult Acute Hypoglycemia Nursing Protocol Dextrose (D10w) 250 mls @ 1,000 mls/hr IV PRN PRN; Protocol PRN Reason: Adult Acute Hypoglycemia Nursing Protocol Ferric Sodium Gluconate 125 mg (/ Sodium Chloride) 110 mls @ 110 mls/hr IV Q24H [facility] Stop: 05/26/24 10:44 Last Infusion: 05/19/24 21:29 Dose: Infused Azithromycin 500 mg/ Sodium (Chloride) 250 mls @ 250 mls/hr IV Q24H ARMANDO; Protocol Last Infusion: 05/19/24 21:29 Dose: Infused Insulin Glargine (Insulin Glargine 100 Units/1 Ml) 16 unit SUBCUT BID [facility] Last Admin: 05/19/24 17:46 Dose: 16 unit Insulin Human Lispro (Insulin Lispro 100 Unit/1 Ml) 0 unit SUBCUT WM&BEDTIME [facility]; Protocol Last Admin: 05/19/24 21:51 Dose: 10 unit Metoprolol Tartrate (Metoprolol Tartrate 50 Mg Tablet) 50 mg PO BID@0900,2100 [facility] Last Admin: 05/19/24 21:21 Dose: 50 mg Ondansetron HCl (Ondansetron 2 Mg/Ml Sdv 2 Ml) 4 mg IVP Q8H PRN PRN Reason: vomiting, or N/V if npo Ondansetron HCl (Ondansetron 4 Mg Tablet) 4 mg PO Q8H PRN PRN Reason: NAUSEA Pramipexole Dihydrochloride (Pramipexole 0.25 Mg Tablet) 0.25 mg PO TID PRN PRN Reason: Restless Leg Syndrome Last Admin: 05/19/24 10:57 Dose: 0.25 mg Ropinirole HCl (Ropinirole 0.25 Mg Tablet) 0.25 mg PO TID [facility] Last Admin: 05/19/24 21:21 Dose: 0.25 mg Vitals/I&O/Wt Last Vital Signs Temp 98.2 F 05/20/24 04:35 Pulse 62 05/20/24 06:00 Resp 17 05/20/24 06:00 BP 166/74 05/20/24 06:00 Pulse Ox 93 05/20/24 06:00 O2 Del Method BiPAP 05/19/24 16:00 O2 Flow Rate 4 05/18/24 22:52 05/19/24 05/20/24 05/20/24 22:59 06:59 14:59 Intake Total 360 / 360 Output Total 1600 / 3250 600 / 3850 Balance -1240 / -2890 -600 / -3490 Weight last 48 hrs Weight 157.17 kg Weight 160.572 kg Weight 161.5 kg Weight 154.221 kg Physical Exam Narrative: obese man in bed comfotable, vital signs noted. HEENT normocephalic atraumatic. Neck obese supple. Lungs improved air movement b/l. still has crackles Heart regular positive S1-S2. Abdomen is soft positive bowel sounds. Extremities bilateral Movement of legs. Minimal left lower extremity edema Neuro awake alert oriented x 3 Urinary Catheter Management: Briceño: Cath Placed During This Visit: yes Reason for Continuing Indwelling Catheter: Accurate Measurement of Urinary Output in Critically Ill Patients Urinary Catheter Date of Insertion: 05/19/24 Data 05/20/24 05:12 05/20/24 05:12 Micro: Microbiology 05/19/24 00:54 Blood Culture - Preliminary Blood NEGATIVE TO DATE 05/18/24 23:12 Blood Culture - Preliminary Blood NEGATIVE TO DATE A&P Assessment and plan (1) Acute kidney injury superimposed on CKD: 68-year-old gentleman obesity hypertension insulin-dependent diabetes, COPD, HFpEF. The patient presents with weakness and shortness of breath involved. 1. CKD stage IV baseline creatinine 2.5 mg/dL from cardiorenal syndrome, hypertension, diabetes and previous NSAID use. 2. Acute on chronic renal failure question of progression versus question obstruction question medication. Patient denies any NSAID use ADRIANA inhibitor's ARB or Aldactone. -no hydronephrosis on renal us cr back to baseline w/ diuresis dec bumex to po low k diet 3. Hyperkalemia -improving w/ diuresis and med management. k was 8. is now 5.2 4. anemia- give iv iron 5. PTH is normal esrd. replace vit d. - TSH is normal I have spoken to the nurse multiple times over the last day and treated his potassium appropriately and adjusted diuretics. If patient is able to ambulate. Please remove Briceño catheter. As patient has HFpEF we will start Jardiance. Patient was seen and examined using audiovisual equipment with the aid of a nurse. The patient consented to telehealth. and hemodialysis is needed. Plan see above Attestations Medical Necessity Statement*: Chronic kidney disease Stage IV, hyperkalemia heart failure preserved EF Time Spent in Patient Care: Greater than 35 minutes (>than 50% of time spent in counselling and/or direct pt care on unit). Coding Level of Care Code Acute Code for Chg Fwd Diagnoses Acute kidney injury superimposed on CKD N17.9; N18.9
--- NOTE | 2024-05-20 08:09 | PC.NURSE ---
Jardiance: Is not in [facility] formulary. Pt stated he does not take this at home. Dr Frey notified, he is aware, he wants this as a new medication.
[2024-05-20 08:23] LABS: Glucose Point of Care 152 mg/dL (70-110)
[2024-05-20] MEDS: insulin glargine 100 units/1 mL 16 UNIT SUBCUT ×2 (08:42→17:55)
[2024-05-20] MEDS: insulin lispro 100 unit/1 mL SUBCUT ×4 (08:43→20:32)
[2024-05-20] MEDS: ropinirole 0.25 mg Tablet PO ×3 (08:43→20:33)
[2024-05-20] MEDS: gabapentin 300 mg Capsule PO ×3 (08:43→20:33)
[2024-05-20] MEDS: bumetanide 1 mg Tablet PO ×2 (08:43→17:55)
[2024-05-20] MEDS: metoprolol tartrate 50 mg Tablet PO ×2 (08:43→20:33)
[2024-05-20] MEDS: sodium polystyrene sulfonate 15 gm/60 mL Btl PO (08:43)
[2024-05-20] MEDS: ferric gluconate 125 MG in sodium chloride 0.9% (100 ml) 100 ML 110 MG IV (10:47)
--- NOTE | 2024-05-20 11:34 | PC.NURSE ---
Pharmacy notified that the Jardiance would be ordered for pt at discharge.
[2024-05-20 12:09] LABS: Glucose Point of Care 237 mg/dL (70-110)
--- NOTE | 2024-05-20 13:32 | PM.PN ---
Subjective Subjective: Seen this morning. Hemoglobin 7.6 Potassium 5.2, creatinine 2.5 Denies any hematochezia hematemesis hematuria. States he has always been anemic and has had endoscopy, colonoscopy, PillCam endoscopy as well however as per him nothing was ever found. He has been chronically anemic and has never seen hematology before. Is on Bumex at home as well. He is on IV iron at this time. Nephrology following patient. Vitals/I&O/Wt Last Vital Signs Temp 97.5 F L 05/20/24 12:00 Pulse 65 05/20/24 12:00 Resp 15 05/20/24 12:00 BP 175/107 05/20/24 12:00 Pulse Ox 99 05/20/24 12:00 O2 Del Method Nasal Cannula 05/20/24 12:00 O2 Flow Rate 4 05/20/24 12:00 05/19/24 05/20/24 05/20/24 22:59 06:59 14:59 Intake Total 360 / 360 335 / 335 Output Total 1600 / 3250 600 / 3850 Balance -1240 / -2890 -600 / -3490 335 / 335 Weight last 48 hrs Weight 157.17 kg Weight 160.572 kg Weight 161.5 kg Weight 154.221 kg Physical Exam Narrative: General: Patient is awake and alert. Pleasant. Head: Normocephalic. Atraumatic. EOM intact. Cardiovascular: RRR. No gallops. No murmurs. Bilateral lower extremity edema present. Lungs: Breath sounds are diminished bilateral bases, no use of accessory muscles, no crackles or wheezes. Abdomen: Normal bowel sounds, abdomen soft and nontender. Extremities: No cyanosis or clubbing. Musculoskeletal: No swollen or erythematous joints. Lower extremities diffusely weak. Neurological: Moves all 4 extremities. No myoclonus. Urinary Catheter Management: Briceño: Cath Placed During This Visit: yes Reason for Continuing Indwelling Catheter: Accurate Measurement of Urinary Output in Critically Ill Patients Urinary Catheter Date of Insertion: 05/19/24 Data 05/20/24 05:12 05/20/24 05:12 Micro: Microbiology 05/19/24 00:54 Blood Culture - Preliminary Blood NEGATIVE TO DATE 05/18/24 23:12 Blood Culture - Preliminary Blood NEGATIVE TO DATE A&P Assessment and plan (1) Hyperkalemia: Severe life-threatening hyperkalemia to 8.0 Status post calcium gluconate, insulin/dextrose, Kayexalate in ED Trend potassium level Continuous telemetry monitoring Nephrology evaluated prior to my evaluation, follow-up recommendations (2) Acute kidney injury superimposed on CKD: Acute acute kidney injury on chronic kidney disease Patient started on lactated Ringer's by nephrology Urine analysis with urine electrolytes pending Strict I's and O's Renally dose medications Serial labs (3) Chronic hypoxemic respiratory failure: Continue supplemental oxygen Chest x-ray reviewed Breathing treatments as needed (4) Iron deficiency anemia: Hemoglobin at recent baseline Iron labs pending Continue to monitor (5) Diabetes mellitus type 2, uncontrolled, with complications: Continue long-acting insulin at reduced home dose Sliding scale insulin correction (6) Atrial fibrillation: Continue beta-rustam Telemetry monitoring (7) Heart failure with preserved ejection fraction: Strict I's and O's Daily weights IV Bumex ordered Continue home beta-rustam Plan DVT prophylaxis: SCD 05/20/2024 -Hemoglobin 7.6 today. Possible dilutional component? However patient is 2.9 L negative since admission. Says he has had a EGD colonoscopy in the past along with PillCam endoscopy. Currently on IV iron. Iron 31, TIBC 321, percent saturation 9.6, ferritin 61. He has a combined picture of anemia of chronic disease and iron deficiency anemia. Will continue oral iron at discharge. I will repeat CBC today. Will check FOBT. However he did see oncology in 2021 where it shows that patient's EGD colonoscopy in October 2021 showed nonerosive gastritis and a polyp in his colon which was removed. No obvious source of blood loss. Capsule endoscopy done in March 2022 showed no abnormality. ? Place patient on Protonix 40 twice daily. ? Vitamin D level 6. Will place on oral vitamin D ? CT chest shows low-density blood within the heart suggesting significant anemia. ? Patient's last stress test was in 2021. He denies any chest pain at this time. However he does have decreased tracer uptake in inferior inferolateral apical lateral regions with some reversibility. Patient was supposed to follow-up with cardiology in April 2024 however did not make it to the appointment. He denies chest pain or shortness of breath at this time. May follow-up as an outpatient. ? Continue on ceftriaxone azithromycin for possible COPD exacerbation. He did have shortness of breath yesterday. Does wear a CPAP at home. Is on 4 L nasal cannula at baseline and on the same here. ? Will need to avoid nephrotoxic medications. ? Continue Bumex 1 mg p.o. twice daily. I discussed with him regarding being on a low potassium diet going forward. ? Recheck CBC every 12 hours. Will transfuse for hemoglobin less than 7. ? Patient has been hypertensive. Will restart home amlodipine, Imdur, hydralazine. Continue to hold lisinopril. Stop spironolactone at discharge. -Will transfer to [facility] floor. Attestations Medical Necessity Statement*: Will need to continue to hospitalize patient for acute on chronic anemia. Will need further workup and management. Diagnoses Hyperkalemia E87.5 Acute kidney injury superimposed on CKD N17.9; N18.9 Chronic hypoxemic respiratory failure J96.11 Iron deficiency anemia D50.9 Diabetes mellitus type 2, uncontrolled, with complications Atrial fibrillation I48.91 Heart failure with preserved ejection fraction I50.30
[2024-05-20] MEDS: hyDRALAzine 50 mg Tablet PO ×2 (14:14→20:33)
[2024-05-20] MEDS: amlodipine 10 mg Tablet PO (14:14)
[2024-05-20 17:44] LABS: Glucose Point of Care 205 mg/dL (70-110)
[2024-05-20] MEDS: isosorbide mononitrate ER 30 mg Tablet PO (17:55)
[2024-05-20] MEDS: pantoprazole DR 40 mg Tablet PO (17:55)
[2024-05-20] MEDS: cefTRIAXone 1,000 mg SDV 1000 MG IVP (17:56)
[2024-05-20] MEDS: AZITHROMYCIN ADD-Vantage 500 MG in 0.9% NaCl ADD-Vantage 250 ML 250 MG IV (18:06)
--- NOTE | 2024-05-20 18:25 | PC.NURSE ---
Shift summary: Pt has had a great day per him. He sat up in chair from breakfast until about 1500. He used the BiPap again briefly this afternoon during a nap. Otherwise he has used his Home O2 amount of 4 lpm. He was steady on his feet getting out of bed, but took small shuffling steps. His BP meds have been changed today, his pressures have still been high: 160-200 SBP. While he was using his Bipap this afternoon was when the Lowest BP noted. Dr العلي was notified. NO complaints of pain. Sinus rhyhm noted on monitor. His lower legs are reddened. Urine output of 1700ml of clear yellow urine noted.
[2024-05-20 19:28] LABS: Basophils # 0.1 10^3/uL (0.0-0.1); Basophils % 0.5 %; Eosinophils # 0.2 10^3/uL (0.0-0.8); Eosinophils % 2.4 %; Hematocrit 27.3 % (37-53); Lymphocytes # 1.4 10^3/uL (0.8-4.8); Lymphocytes % 14.8 %; Mean Corpuscular Hemoglobin 28.6 pg (27-33); Mean Corpuscular Volume 95.1 fl (82-101); Mean Platelet Volume 9.9 fL (7.4-10.4); Monocytes % 9.9 %; Neutrophils % 71.6 %; Nucleated Red Blood Cells % 0 %; Platelet Count 196 10^3/cmm (157-399); Red Blood Count 2.87 10^6/uL (3.85-5.65); Red Cell Distribution Width 13.5 % (12.1-15.1); White Blood Count 9.65 10^3/uL (3.29-11.43)
[2024-05-20 20:31] LABS: Glucose Point of Care 218 mg/dL (70-110)
[2024-05-21] VITALS (32 sets, daily range): BP systolic 91–204; BP diastolic 58–114; PULSE 55–78; RESP 15–22; TEMP 36–37.1; O2SAT 82–100
[2024-05-21] MEDS: pramipexole 0.25 mg Tablet PO ×2 (03:37→17:50)
[2024-05-21 04:33] LABS: Basophils # 0.1 10^3/uL (0.0-0.1); Basophils % 0.7 %; Eosinophils # 0.3 10^3/uL (0.0-0.8); Eosinophils % 2.9 %; Hematocrit 25.3 % (37-53); Lymphocytes # 1.3 10^3/uL (0.8-4.8); Lymphocytes % 14.8 %; Mean Corpuscular Volume 93.4 fl (82-101); Mean Platelet Volume 9.7 fL (7.4-10.4); Monocytes # 1.1 10^3/uL (0.2-0.9); Monocytes % 11.8 %; Neutrophils # 6.25 10^3/uL (1.8-7.7); Neutrophils % 69.2 %; Nucleated Red Blood Cells % 0 %; Platelet Count 192 10^3/cmm (157-399); Red Blood Count 2.71 10^6/uL (3.85-5.65); Red Cell Distribution Width 13.5 % (12.1-15.1); White Blood Count 9.03 10^3/uL (3.29-11.43)
[2024-05-21 04:59] LABS: Alanine Aminotransferase 11 U/L (0-41); Albumin Level 3.4 g/dL (3.5-5.2); Alkaline Phosphatase 128 U/L (40-130); Anion Gap 11.6 (5-19); Aspartate Amino Transferase 21 U/L (0-40); Blood Urea Nitrogen 41 mg/dL (8-23); Calcium 8.9 mg/dL (8.5-10.5); Carbon Dioxide 30 mmol/L (22-29); Chloride 100 mmol/L (98-107); Creatinine Clr Calc Pharmacy 42.6185; Globulin 3.7 g/dL (1.3-4.6); Glomerular Filtration Rate 24.7 mL/min (90-130); Glucose 194 mg/dL (65-115); Magnesium 1.9 mg/dL (1.7-2.3); Osmolality Calculated 297 mOsm/kg (285-295); Phosphorus 4.8 mg/dL (2.5-4.5); Potassium 5.6 mmol/L (3.5-5.1); Sodium 136 mmol/L (136-145); Total Bilirubin 0.2 mg/dL (0.15-1.2); Total Protein 7.1 g/dL (6.6-8.7)
[2024-05-21] MEDS: sertraline 100 mg Tablet PO (05:51)
[2024-05-21 07:22] LABS: Glucose Point of Care 194 mg/dL (70-110)
[2024-05-21] MEDS: insulin lispro 100 unit/1 mL SUBCUT ×4 (09:28→21:10)
[2024-05-21] MEDS: sodium polystyrene sulfonate 15 gm/60 mL Btl PO (09:29)
[2024-05-21] MEDS: insulin glargine 100 units/1 mL 16 UNIT SUBCUT ×2 (09:29→17:42)
[2024-05-21] MEDS: ferric gluconate 125 MG in sodium chloride 0.9% (100 ml) 100 ML 110 MG IV (09:29)
[2024-05-21] MEDS: ropinirole 0.25 mg Tablet PO ×3 (09:30→21:06)
[2024-05-21] MEDS: amlodipine 10 mg Tablet PO (09:30)
[2024-05-21] MEDS: gabapentin 300 mg Capsule PO ×3 (09:30→21:06)
[2024-05-21] MEDS: pantoprazole DR 40 mg Tablet PO ×2 (09:30→17:40)
[2024-05-21] MEDS: bumetanide 1 mg Tablet PO (09:30)
[2024-05-21] MEDS: metoprolol tartrate 50 mg Tablet PO (09:30)
[2024-05-21] MEDS: isosorbide mononitrate ER 30 mg Tablet PO ×2 (09:30→17:41)
[2024-05-21] MEDS: cholecalciferol (vitamin D3) 5,000 unit Tablet 5000 UNIT PO (09:30)
[2024-05-21] MEDS: levothyroxine 25 mcg Tablet PO (09:30)
--- NOTE | 2024-05-21 10:07 | P.PN_ITS ---
Subjective 2 Subjective: feels better. dec sob and cp. no n/v/f/c/whitaker/d Medications: Reviewed: Yes Medication Review Details: Current Medications Acetaminophen (Acetaminophen 325 Mg Tablet) 650 mg PO Q6H PRN PRN Reason: Mild/Mod Pain Or Temp >/= 101 Amlodipine Besylate (Amlodipine 10 Mg Tablet) 10 mg PO DAILY [facility] Last Admin: 05/21/24 09:30 Dose: 10 mg Bumetanide (Bumetanide 1 Mg Tablet) 1 mg PO BID [facility] Last Admin: 05/21/24 09:30 Dose: 1 mg Ceftriaxone Sodium (Ceftriaxone 1,000 Mg Sdv) 1,000 mg IVP Q24H ARMANDO; Protocol Last Admin: 05/20/24 17:56 Dose: 1,000 mg Gabapentin (Gabapentin 300 Mg Capsule) 300 mg PO TID [facility] Last Admin: 05/21/24 09:30 Dose: 300 mg Glucagon (Glucagon 1 Mg/Ml Kit 1 Ml) 1 mg IM ONCE PRN; Protocol PRN Reason: Adult Acute Hypoglycemia Nursing Prot. Hydralazine HCl (Hydralazine 20 Mg/Ml Inj 1 Ml) 10 mg IVP Q4H PRN PRN Reason: SBP>180mmHg or DBP>110mmHG Last Admin: 05/19/24 14:55 Dose: 10 mg Hydralazine HCl (Hydralazine 50 Mg Tablet) 50 mg PO TID [facility] Last Admin: 05/20/24 20:33 Dose: 50 mg Dextrose (D5w) 500 mls @ 0 mls/hr IV ONCE PRN; Protocol PRN Reason: Adult Acute Hypoglycemia Prot Dextrose (D10w) 125 mls @ 750 mls/hr IV PRN PRN; Protocol PRN Reason: Adult Acute Hypoglycemia Nursing Protocol Dextrose (D10w) 250 mls @ 1,000 mls/hr IV PRN PRN; Protocol PRN Reason: Adult Acute Hypoglycemia Nursing Protocol Ferric Sodium Gluconate 125 mg (/ Sodium Chloride) 110 mls @ 110 mls/hr IV Q24H [facility] Stop: 05/26/24 10:44 Last Admin: 05/21/24 09:29 Dose: 110 mls/hr Azithromycin 500 mg/ Sodium (Chloride) 250 mls @ 250 mls/hr IV Q24H ARMANDO; Protocol Last Infusion: 05/20/24 19:45 Dose: Infused Insulin Glargine (Insulin Glargine 100 Units/1 Ml) 16 unit SUBCUT BID [facility] Last Admin: 05/21/24 09:29 Dose: 16 unit Insulin Human Lispro (Insulin Lispro 100 Unit/1 Ml) 0 unit SUBCUT WM&BEDTIME [facility]; Protocol Last Admin: 05/21/24 09:28 Dose: 6 unit Isosorbide Mononitrate (Isosorbide Mononitrate Er 30 Mg Tablet) 30 mg PO BID [facility] Last Admin: 05/21/24 09:30 Dose: 30 mg Levothyroxine Sodium (Levothyroxine 25 Mcg Tablet) 25 mcg PO DAILY [facility] Last Admin: 05/21/24 09:30 Dose: 25 mcg Metoprolol Tartrate (Metoprolol Tartrate 50 Mg Tablet) 50 mg PO BID@0900,2100 [facility] Last Admin: 05/21/24 09:30 Dose: 50 mg Non-Formulary Medication( Empagliflozin) 25 each XX UNK [facility] Ondansetron HCl (Ondansetron 2 Mg/Ml Sdv 2 Ml) 4 mg IVP Q8H PRN PRN Reason: vomiting, or N/V if npo Ondansetron HCl (Ondansetron 4 Mg Tablet) 4 mg PO Q8H PRN PRN Reason: NAUSEA Pantoprazole Sodium (Pantoprazole Dr 40 Mg Tablet) 40 mg PO BID [facility] Last Admin: 05/21/24 09:30 Dose: 40 mg Pramipexole Dihydrochloride (Pramipexole 0.25 Mg Tablet) 0.25 mg PO TID PRN PRN Reason: Restless Leg Syndrome Last Admin: 05/21/24 03:37 Dose: 0.25 mg Ropinirole HCl (Ropinirole 0.25 Mg Tablet) 0.25 mg PO TID [facility] Last Admin: 05/21/24 09:30 Dose: 0.25 mg Sertraline HCl (Sertraline 100 Mg Tablet) 100 mg PO QAM [facility] Last Admin: 05/21/24 05:51 Dose: 100 mg Sodium Chloride (Sodium Chloride 0.9% 100 Ml Bag) 50 ml IV PRN PRN PRN Reason: Blood transfusion prime and flush Stop: 05/22/24 10:05 Sodium Polystyrene Sulfonate (Sodium Polystyrene Sulfonate 15 Gm/60 Ml Btl) 15 gm PO DAILY [facility] Stop: 05/23/24 11:00 Last Admin: 05/21/24 09:29 Dose: 15 gm Vitamin D (Cholecalciferol (Vitamin D3) 5,000 Unit Tablet) 5,000 unit PO DAILY [facility] Last Admin: 05/21/24 09:30 Dose: 5,000 unit Vitals/I&O/Wt Last Vital Signs Temp 97.7 F 05/21/24 06:30 Pulse 63 05/21/24 06:30 Resp 17 05/21/24 06:30 BP 174/72 05/21/24 04:30 Pulse Ox 99 05/21/24 06:30 O2 Del Method Nasal Cannula 05/20/24 16:00 O2 Flow Rate 4 05/20/24 16:00 05/20/24 05/21/24 05/21/24 22:59 06:59 14:59 Intake Total 485 / 820 Output Total 600 / 1700 Balance -115 / -880 Weight last 48 hrs Weight 159.5 kg Weight 157.17 kg Physical Exam 2 Narrative: obese man, sitting up comfotably, vital signs noted. HEENT normocephalic atraumatic. Neck obese supple. Lungs improved air movement b/l. decreased crackles Heart regular positive S1-S2. Abdomen is soft positive bowel sounds. Extremities bilateral Movement of legs. Minimal left lower extremity edema Neuro awake alert oriented x 3 Urinary Catheter Management: Briceño: Cath Placed During This Visit: yes Reason for Continuing Indwelling Catheter: Accurate Measurement of Urinary Output in Critically Ill Patients Urinary Catheter Date of Insertion: 05/19/24 Data 05/21/24 04:06 05/21/24 04:06 A&P Assessment and plan (1) Acute kidney injury superimposed on CKD: 68-year-old gentleman obesity hypertension insulin-dependent diabetes, COPD, HFpEF. The patient presents with weakness and shortness of breath involved. 1. CKD stage IV baseline creatinine 2.5 mg/dL from cardiorenal syndrome, hypertension, diabetes and previous NSAID use. 2. Acute on chronic renal failure question of progression versus question obstruction question medication. Patient denies any NSAID use ADRIANA inhibitor's ARB or Aldactone. -no hydronephrosis on renal us cr back to baseline w/ diuresis inc bumex to po low k diet 3. Hyperkalemia -improving w/ diuresis and med management. k was 8. is now 5.6- outpt lokelma 10 d 4. anemia- give iv iron, will give a dose of EPO 5. PTH is normal esrd. replace vit d. - TSH is normal 6. htn -back on outpt meds- metoprolol 50 bid, imdur 30 bid, hydralazine 50 tid, and amlodipine 10 d. given hyperkalemia- dec metoprolol to 25 bid - remove Briceño catheter. As patient has HFpEF we will start Jardiance. Patient was seen and examined using audiovisual equipment with the aid of a nurse. The patient consented to telehealth. Discussed w/ Dr. العلي . Plan see above Attestations 2 Medical Necessity Statement*: diureses, treat htn Time Spent in Patient Care: 16 - 35 minutes (>than 50% of time sp ent in counselling and/or direct pt care on unit) . Coding Level of Care Code Acute Code for Chg Fwd Diagnoses Acute kidney injury superimposed on CKD N17.9; N18.9
[2024-05-21] MEDS: hyDRALAzine 50 mg Tablet PO (10:11)
[2024-05-21 11:07] LABS: Glucose Point of Care 257 mg/dL (70-110)
[2024-05-21] MEDS: hyDRALAzine 25 mg Tablet PO (11:49)
[2024-05-21] MEDS: epoetin alfa 20,000 unit/mL MDV (ESRD) 10000 UNIT SUBCUT (11:51)
--- NOTE | 2024-05-21 14:19 | P.PN_ITS ---
Subjective 2 Subjective: Seen today. Hemoglobin 7.6 today. Discussed with nephrology. Patient is on IV iron at this time. Nephrology will order EPO. Blood pressure has been elevated. Blood pressure up to 200 systolic. Vitals/I&O/Wt Last Vital Signs Temp 97.9 F 05/21/24 14:05 Pulse 70 05/21/24 10:33 Resp 19 H 05/21/24 14:05 BP 181/76 05/21/24 14:05 Pulse Ox 99 05/21/24 14:05 O2 Del Method Nasal Cannula 05/21/24 10:33 O2 Flow Rate 3 05/21/24 10:33 05/20/24 05/21/24 05/21/24 22:59 06:59 14:59 Intake Total 485 / 820 0 / 0 Output Total 600 / 1700 Balance -115 / -880 0 / 0 Weight last 48 hrs Weight 159.5 kg Weight 157.17 kg Physical Exam 2 Narrative: General: Patient is awake and alert. Pleasant. Head: Normocephalic. Atraumatic. EOM intact. Cardiovascular: RRR. No gallops. No murmurs. Bilateral lower extremity edema present. Lungs: Breath sounds are diminished bilateral bases, no use of accessory muscles Abdomen: Normal bowel sounds, abdomen soft and nontender. Extremities: No cyanosis or clubbing. Musculoskeletal: No swollen or erythematous joints. Neurological: Moves all 4 extremities. No myoclonus. Urinary Catheter Management: Briceño: Cath Placed During This Visit: yes Reason for Continuing Indwelling Catheter: Accurate Measurement of Urinary Output in Critically Ill Patients Urinary Catheter Date of Insertion: 05/19/24 Data 05/21/24 04:06 05/21/24 04:06 A&P Assessment and plan (1) Hyperkalemia: Severe life-threatening hyperkalemia to 8.0 Status post calcium gluconate, insulin/dextrose, Kayexalate in ED Trend potassium level Continuous telemetry monitoring Nephrology evaluated prior to my evaluation, follow-up recommendations (2) Acute kidney injury superimposed on CKD: Acute acute kidney injury on chronic kidney disease Patient started on lactated Ringer's by nephrology Urine analysis with urine electrolytes pending Strict I's and O's Renally dose medications Serial labs (3) Chronic hypoxemic respiratory failure: Continue supplemental oxygen Chest x-ray reviewed Breathing treatments as needed (4) Iron deficiency anemia: Hemoglobin at recent baseline Iron labs pending Continue to monitor (5) Diabetes mellitus type 2, uncontrolled, with complications: Continue long-acting insulin at reduced home dose Sliding scale insulin correction (6) Atrial fibrillation: Continue beta-rustam Telemetry monitoring (7) Heart failure with preserved ejection fraction: Strict I's and O's Daily weights IV Bumex ordered Continue home beta-rustam Plan DVT prophylaxis: SCD 05/20/2024 -Hemoglobin 7.6 today. Possible dilutional component? However patient is 2.9 L negative since admission. Says he has had a EGD colonoscopy in the past along with PillCam endoscopy. Currently on IV iron. Iron 31, TIBC 321, percent saturation 9.6, ferritin 61. He has a combined picture of anemia of chronic disease and iron deficiency anemia. Will continue oral iron at discharge. I will repeat CBC today. Will check FOBT. However he did see oncology in 2021 where it shows that patient's EGD colonoscopy in October 2021 showed nonerosive gastritis and a polyp in his colon which was removed. No obvious source of blood loss. Capsule endoscopy done in March 2022 showed no abnormality. ? Place patient on Protonix 40 twice daily. ? Vitamin D level 6. Will place on oral vitamin D ? CT chest shows low-density blood within the heart suggesting significant anemia. ? Patient's last stress test was in 2021. He denies any chest pain at this time. However he does have decreased tracer uptake in inferior inferolateral apical lateral regions with some reversibility. Patient was supposed to follow- up with cardiology in April 2024 however did not make it to the appointment. He denies chest pain or shortness of breath at this time. May follow-up as an outpatient. ? Continue on ceftriaxone azithromycin for possible COPD exacerbation. He did have shortness of breath yesterday. Does wear a CPAP at home. Is on 4 L nasal cannula at baseline and on the same here. ? Will need to avoid nephrotoxic medications. ? Continue Bumex 1 mg p.o. twice daily. I discussed with him regarding being on a low potassium diet going forward. ? Recheck CBC every 12 hours. Will transfuse for hemoglobin less than 7. ? Patient has been hypertensive. Will restart home amlodipine, Imdur, hydralazine. Continue to hold lisinopril. Stop spironolactone at discharge. -Will transfer to [facility] [place]. 05/21/2024 -Hemoglobin 7.6. Continue IV iron. Order 1 unit packed RBC. Patient to follow-up as an outpatient for potential EGD colonoscopy. He has been anemic for a long time. No acute bleed suspected. ? Hold lisinopril. ? Increase hydralazine to 75 3 times daily., Continue amlodipine 10 daily, Imdur to be continued. Metoprolol tartrate reduced to 25 twice daily. ? Continue on Bumex 1.5 mg p.o. twice daily. Will probably use 1 mg Bumex today one-time dose for fluid overload potentially secondary to blood transfusion ? Patient was discharged home on [facility]. ? Plan to discharge home in next 24 to 48 hours. ? FOBT still pending Attestations 2 Medical Necessity Statement*: Will need to continue to hospitalize patient for acute on chronic anemia requiring a blood transfusion today. He is also hypertensive. Hypertension medications need to be optimized. Diagnoses Hyperkalemia E87.5 Acute kidney injury superimposed on CKD N17.9; N18.9 Chronic hypoxemic respiratory failure J96.11 Iron deficiency anemia D50.9 Diabetes mellitus type 2, uncontrolled, with complications Atrial fibrillation I48.91 Heart failure with preserved ejection fraction I50.30
[2024-05-21] MEDS: hyDRALAzine 50 mg Tablet 75 MG PO ×2 (14:21→21:06)
[2024-05-21 17:12] LABS: Glucose Point of Care 196 mg/dL (70-110)
[2024-05-21] MEDS: bumetanide 1 mg Tablet 1.5 MG PO (17:40)
[2024-05-21] MEDS: sodium chloride 0.9% 100 mL Bag 50 ML IV (17:43)
[2024-05-21] MEDS: cefTRIAXone 1,000 mg SDV 1000 MG IVP (18:52)
[2024-05-21] MEDS: AZITHROMYCIN ADD-Vantage 500 MG in 0.9% NaCl ADD-Vantage 250 ML 250 MG IV (18:52)
[2024-05-21] MEDS: hyDRALAzine 20 mg/mL INJ 1 mL 10 MG IVP (18:53)
[2024-05-21 21:03] LABS: Glucose Point of Care 266 mg/dL (70-110)
[2024-05-21] MEDS: metoprolol tartrate 50 mg Tablet 25 MG PO (21:07)
[2024-05-22] VITALS (15 sets, daily range): BP systolic 154–215; BP diastolic 57–98; PULSE 64–82; RESP 12–26; TEMP 36.8–37.1; O2SAT 95–99
[2024-05-22] MEDS: hyDRALAzine 20 mg/mL INJ 1 mL 10 MG IVP ×2 (02:02→08:29)
[2024-05-22 05:06] LABS: Basophils # 0.1 10^3/uL (0.0-0.1); Basophils % 0.5 %; Eosinophils # 0.3 10^3/uL (0.0-0.8); Eosinophils % 2.1 %; Hematocrit 26.4 % (37-53); Lymphocytes # 1.4 10^3/uL (0.8-4.8); Lymphocytes % 11.4 %; Mean Corpuscular HGB Conc 31.4 g/dL (30-55); Mean Corpuscular Hemoglobin 28.7 pg (27-33); Mean Corpuscular Volume 91.3 fl (82-101); Mean Platelet Volume 9.3 fL (7.4-10.4); Monocytes # 1.2 10^3/uL (0.2-0.9); Monocytes % 9.7 %; Neutrophils # 9.05 10^3/uL (1.8-7.7); Neutrophils % 75.3 %; Nucleated Red Blood Cells % 0 %; Platelet Count 184 10^3/cmm (157-399); Red Blood Count 2.89 10^6/uL (3.85-5.65); Red Cell Distribution Width 13.9 % (12.1-15.1); White Blood Count 12.01 10^3/uL (3.29-11.43)
[2024-05-22 05:19] LABS: Alanine Aminotransferase 12 U/L (0-41); Albumin Level 3.4 g/dL (3.5-5.2); Alkaline Phosphatase 131 U/L (40-130); Anion Gap 16.7 (5-19); Aspartate Amino Transferase 20 U/L (0-40); Blood Urea Nitrogen 40 mg/dL (8-23); Calcium 8.4 mg/dL (8.5-10.5); Carbon Dioxide 27 mmol/L (22-29); Chloride 98 mmol/L (98-107); Creatinine Clr Calc Pharmacy 42.9769; Globulin 3.1 g/dL (1.3-4.6); Glomerular Filtration Rate 24.7 mL/min (90-130); Glucose 171 mg/dL (65-115); Magnesium 1.8 mg/dL (1.7-2.3); Osmolality Calculated 298 mOsm/kg (285-295); Phosphorus 4.5 mg/dL (2.5-4.5); Potassium 4.7 mmol/L (3.5-5.1); Sodium 137 mmol/L (136-145); Total Bilirubin 0.2 mg/dL (0.15-1.2); Total Protein 6.5 g/dL (6.6-8.7)
[2024-05-22] MEDS: sertraline 100 mg Tablet PO (06:08)
[2024-05-22] MEDS: isosorbide mononitrate ER 30 mg Tablet PO (07:41)
[2024-05-22] MEDS: amlodipine 10 mg Tablet PO (07:42)
[2024-05-22] MEDS: hyDRALAzine 50 mg Tablet 75 MG PO (07:42)
--- NOTE | 2024-05-22 07:46 | P.PN_ITS ---
Subjective 2 Subjective: The patient feels well. No nausea vomiting shortness of breath chest pain headaches itching or cramps. Decreased edema. The patient want to go home. Medications: Reviewed: Yes Medication Review Details: Current Medications Acetaminophen (Acetaminophen 325 Mg Tablet) 650 mg PO Q6H PRN PRN Reason: Mild/Mod Pain Or Temp >/= 101 Amlodipine Besylate (Amlodipine 10 Mg Tablet) 10 mg PO DAILY [facility] Last Admin: 05/22/24 07:42 Dose: 10 mg Bumetanide (Bumetanide 1 Mg Tablet) 1.5 mg PO BID [facility] Last Admin: 05/21/24 17:40 Dose: 1.5 mg Ceftriaxone Sodium (Ceftriaxone 1,000 Mg Sdv) 1,000 mg IVP Q24H [facility]; Protocol Last Admin: 05/21/24 18:52 Dose: 1,000 mg Gabapentin (Gabapentin 300 Mg Capsule) 300 mg PO TID [facility] Last Admin: 05/21/24 21:06 Dose: 300 mg Glucagon (Glucagon 1 Mg/Ml Kit 1 Ml) 1 mg IM ONCE PRN; Protocol PRN Reason: Adult Acute Hypoglycemia Nursing Prot. Hydralazine HCl (Hydralazine 20 Mg/Ml Inj 1 Ml) 10 mg IVP Q4H PRN PRN Reason: SBP>180mmHg or DBP>110mmHG Last Admin: 05/22/24 02:02 Dose: 10 mg Hydralazine HCl (Hydralazine 50 Mg Tablet) 75 mg PO TID [facility] Last Admin: 05/22/24 07:42 Dose: 75 mg Dextrose (D5w) 500 mls @ 0 mls/hr IV ONCE PRN; Protocol PRN Reason: Adult Acute Hypoglycemia Prot Dextrose (D10w) 125 mls @ 750 mls/hr IV PRN PRN; Protocol PRN Reason: Adult Acute Hypoglycemia Nursing Protocol Dextrose (D10w) 250 mls @ 1,000 mls/hr IV PRN PRN; Protocol PRN Reason: Adult Acute Hypoglycemia Nursing Protocol Ferric Sodium Gluconate 125 mg (/ Sodium Chloride) 110 mls @ 110 mls/hr IV Q24H [facility] Stop: 05/26/24 10:44 Last Infusion: 05/21/24 10:30 Dose: Infused Azithromycin 500 mg/ Sodium (Chloride) 250 mls @ 250 mls/hr IV Q24H [facility]; Protocol Last Admin: 05/21/24 18:52 Dose: 250 mls/hr Insulin Glargine (Insulin Glargine 100 Units/1 Ml) 16 unit SUBCUT BID [facility] Last Admin: 05/21/24 17:42 Dose: 16 unit Insulin Human Lispro (Insulin Lispro 100 Unit/1 Ml) 0 unit SUBCUT WM&BEDTIME [facility]; Protocol Last Admin: 05/21/24 21:10 Dose: 10 unit Isosorbide Mononitrate (Isosorbide Mononitrate Er 30 Mg Tablet) 30 mg PO BID [facility] Last Admin: 05/22/24 07:41 Dose: 30 mg Levothyroxine Sodium (Levothyroxine 25 Mcg Tablet) 25 mcg PO DAILY [facility] Last Admin: 05/21/24 09:30 Dose: 25 mcg Metoprolol Tartrate (Metoprolol Tartrate 50 Mg Tablet) 25 mg PO BID@0900,2100 [facility] Last Admin: 05/21/24 21:07 Dose: 25 mg Non-Formulary Medication( Empagliflozin) 25 each XX UNK [facility] Ondansetron HCl (Ondansetron 2 Mg/Ml Sdv 2 Ml) 4 mg IVP Q8H PRN PRN Reason: vomiting, or N/V if npo Ondansetron HCl (Ondansetron 4 Mg Tablet) 4 mg PO Q8H PRN PRN Reason: NAUSEA Pantoprazole Sodium (Pantoprazole Dr 40 Mg Tablet) 40 mg PO BID [facility] Last Admin: 05/21/24 17:40 Dose: 40 mg Pramipexole Dihydrochloride (Pramipexole 0.25 Mg Tablet) 0.25 mg PO TID PRN PRN Reason: Restless Leg Syndrome Last Admin: 05/21/24 17:50 Dose: 0.25 mg Ropinirole HCl (Ropinirole 0.25 Mg Tablet) 0.25 mg PO TID [facility] Last Admin: 05/21/24 21:06 Dose: 0.25 mg Sertraline HCl (Sertraline 100 Mg Tablet) 100 mg PO QAM [facility] Last Admin: 05/22/24 06:08 Dose: 100 mg Sodium Chloride (Sodium Chloride 0.9% 100 Ml Bag) 50 ml IV PRN PRN PRN Reason: Blood transfusion prime and flush Stop: 05/22/24 10:05 Last Admin: 05/21/24 17:43 Dose: 50 ml Sodium Polystyrene Sulfonate (Sodium Polystyrene Sulfonate 15 Gm/60 Ml Btl) 15 gm PO DAILY [facility] Stop: 05/23/24 11:00 Last Admin: 05/21/24 09:29 Dose: 15 gm Vitamin D (Cholecalciferol (Vitamin D3) 5,000 Unit Tablet) 5,000 unit PO DAILY [facility] Last Admin: 05/21/24 09:30 Dose: 5,000 unit Vitals/I&O/Wt Last Vital Signs Temp 98.2 F 05/22/24 06:00 Pulse 78 05/22/24 06:00 Resp 18 05/22/24 06:00 BP 154/57 05/22/24 06:00 Pulse Ox 99 05/22/24 06:00 O2 Del Method Nasal Cannula 05/21/24 20:00 O2 Flow Rate 4 05/21/24 20:00 05/21/24 05/22/24 05/22/24 22:59 06:59 14:59 Intake Total 710 / 820 880 / 1700 Output Total 1900 / 2800 Balance 710 / -80 -1020 / -1100 Weight last 48 hrs Weight 73.482 kg Weight 159.5 kg Physical Exam 2 Narrative: obese man, sitting up comfotably, vital signs noted. HEENT normocephalic atraumatic. Neck obese supple. Lungs improved air movement b/l. Heart regular positive S1-S2. Abdomen is soft positive bowel sounds. Extremities bilateral Movement of legs. Minimal left lower extremity edema Neuro awake alert oriented x 3 Urinary Catheter Management: Briceño: Cath Placed During This Visit: yes Reason for Continuing Indwelling Catheter: Accurate Measurement of Urinary Output in Critically Ill Patients Urinary Catheter Date of Insertion: 05/19/24 Data 05/22/24 04:52 05/22/24 04:52 A&P Assessment and plan (1) Acute kidney injury superimposed on CKD: 68-year-old gentleman obesity hypertension insulin-dependent diabetes, COPD, HFpEF. The patient presents with weakness and shortness of breath involved. 1. CKD stage IV baseline creatinine 2.5 mg/dL from cardiorenal syndrome, hypertension, diabetes and previous NSAID use. 2. Acute on chronic renal failure question of progression versus question obstruction question medication. Patient denies any NSAID use ADRIANA inhibitor's ARB or Aldactone. -no hydronephrosis on renal us cr back to baseline w/ diuresis inc bumex to po low k diet 3. Hyperkalemia -improved w/ diuresis and med management. outpt lokelma 10 mg every other d 4. anemia- give iv iron, will give a dose of EPO 5. PTH is normal esrd. replace vit d. - TSH is normal 6. htn -back on outpt meds- metoprolol 25 bid, imdur 30 bid, hydralazine 50 tid, and amlodipine 10 d. - consider decreasing hydralazine to 25 mg po tid As patient has HFpEF we will start Jardiance. renal okay for d/c with outpt renal f/u in 2 weeks Patient was seen and examined using audiovisual equipment with the aid of a nurse. The patient consented to telehealth. Discussed w/ Dr. العلي . Plan see above Attestations 2 Medical Necessity Statement*: per medicine Time Spent in Patient Care: 16 - 35 minutes (>than 50% of time sp ent in counselling and/or direct pt care on unit) . Coding Level of Care Code Acute Code for Chg Fwd Diagnoses Acute kidney injury superimposed on CKD N17.9; N18.9
[2024-05-22 07:47] LABS: Glucose Point of Care 152 mg/dL (70-110)
[2024-05-22] MEDS: bumetanide 1 mg Tablet 1.5 MG PO (08:21)
[2024-05-22] MEDS: pramipexole 0.25 mg Tablet PO (08:22)
[2024-05-22] MEDS: gabapentin 300 mg Capsule PO (08:22)
[2024-05-22] MEDS: pantoprazole DR 40 mg Tablet PO (08:22)
[2024-05-22] MEDS: cholecalciferol (vitamin D3) 5,000 unit Tablet 5000 UNIT PO (08:23)
[2024-05-22] MEDS: levothyroxine 25 mcg Tablet PO (08:23)
[2024-05-22] MEDS: metoprolol tartrate 50 mg Tablet 25 MG PO (08:23)
[2024-05-22] MEDS: ropinirole 0.25 mg Tablet PO (08:23)
[2024-05-22] MEDS: insulin lispro 100 unit/1 mL SUBCUT ×2 (08:24→13:05)
[2024-05-22] MEDS: insulin glargine 100 units/1 mL 16 UNIT SUBCUT (08:25)
--- NOTE | 2024-05-22 10:48 | PM.DCS ---
Discharge Providers Date of Admission: 05/19/24 00:05 Date of Discharge: May 22, 2024 Attending Provider at Admission: Dave Kothari MD Attending Provider at Discharge: Daksha العلي MD Primary Care Provider: Rachel Bills MD Diagnoses at Discharge Discharge Diagnosis (1) Acute kidney injury superimposed on CKD: Status: Resolved Reason for Visit Reason for Visit: WEAKNESS Hospital Course Hospital Course Patient presented to the hospital with hyperkalemia potassium 8. He was seen by nephrology and medications were adjusted. Eventually was recommended to go home on Lokelma however his insurance would not cover it therefore he was sent home on Kayexalate. He was also found to have iron deficiency anemia. Hemoglobin remained stable. He did get blood transfusion during hospitalization. Was given repeat CBC at discharge and asked to follow-up with hematology outpatient. He was diuresed with Bumex during hospitalization and Bumex was switched to 1.5 mg twice daily as per nephrology recommendations. No acute bleed was suspected and he was asked to follow-up outpatient for potential EGD colonoscopy. Hydralazine Imdur amlodipine were adjusted. The Toprol tartrate was also adjusted. Physical Exam Narrative: General: Patient is awake and alert. Pleasant. Head: Normocephalic. Atraumatic. EOM intact. Cardiovascular: RRR. No gallops. No murmurs. Bilateral lower extremity edema present. Lungs: Breath sounds are diminished bilateral bases, no use of accessory muscles Abdomen: Normal bowel sounds, abdomen soft and nontender. Extremities: No cyanosis or clubbing. Musculoskeletal: No swollen or erythematous joints. Neurological: Moves all 4 extremities. No myoclonus. Urinary Catheter Management: Briceño: Cath Placed During This Visit: yes Reason for Continuing Indwelling Catheter: Accurate Measurement of Urinary Output in Critically Ill Patients Urinary Catheter Date of Insertion: 05/19/24 Discharge Data Studies Completed and Pending Completed Studies During Hospitalization Category Date Time Status CT chest wo con [id number] Routine Cat Scan 05/19/24 18:43 Completed XR chest 1V portable [id number] Stat Exams 05/18/24 22:48 Completed US renal BI* [id number] Routine Ultrasound 05/19/24 00:35 Completed Pending at discharge Category Date Time Status Blood Culture Stat Lab 05/18/24 23:12 Results Fecal Occult Blood [Immunochemical Fecal OCB] Routine Lab 05/20/24 13:42 Uncollected Sputum Culture and Gram Stain Stat Lab 05/19/24 18:43 Uncollected Radiology Impressions Chest X-Ray 05/18/24 22:48 IMPRESSION: Left basilar opacities suggesting atelectasis or scarring, similar compared to prior study. Developing consolidation could also have this appearance. Renal Ultrasound 05/19/24 00:35 IMPRESSION: Unremarkable renal ultrasound. Chest CT 05/19/24 18:43 IMPRESSION: 1. Mild basilar atelectasis 2. Findings suggesting significant anemia. Laboratory Results WBC 12.01 10^3/uL (3.29-11.43) H 05/22/24 04:52 RBC 2.89 10^6/uL (3.85-5.65) L 05/22/24 04:52 Hgb 8.30 g/dL (11.27-16.99) L 05/22/24 04:52 Hct 26.4 % (37-53) L 05/22/24 04:52 MCV 91.3 fl (82-101) 05/22/24 04:52 MCH 28.7 pg (27-33) 05/22/24 04:52 MCHC 31.4 g/dL (30-55) 05/22/24 04:52 RDW 13.9 % (12.1-15.1) 05/22/24 04:52 Plt Count 184 10^3/cmm (157-399) 05/22/24 04:52 MPV 9.3 fL (7.4-10.4) 05/22/24 04:52 Neut % (Auto) 75.3 % 05/22/24 04:52 Lymph % (Auto) 11.4 % 05/22/24 04:52 [place] % (Auto) 9.7 % 05/22/24 04:52 Eos % (Auto) 2.1 % 05/22/24 04:52 Baso % (Auto) 0.5 % 05/22/24 04:52 Neut # (Auto) 9.05 10^3/uL (1.8-7.7) H 05/22/24 04:52 Lymph # (Auto) 1.4 10^3/uL (0.8-4.8) 05/22/24 04:52 [place] # (Auto) 1.2 10^3/uL (0.2-0.9) H 05/22/24 04:52 Eos # (Auto) 0.3 10^3/uL (0.0-0.8) 05/22/24 04:52 Baso # (Auto) 0.1 10^3/uL (0.0-0.1) 05/22/24 04:52 Nucleated RBC % (auto) 0 % 05/22/24 04:52 Nucleated RBCs # 0.0 /100WBC 05/22/24 04:52 Specimen Type Arterial 05/18/24 23:19 Sample Site Brachial, right 05/18/24 23:19 ABG pH 7.36 (7.35-7.45) 05/18/24 23:19 ABG pCO2 44.1 mmHg (35-45) 05/18/24 23:19 ABG pO2 83.6 mmHg (80.0-100.0) 05/18/24 23:19 ABG HCO3 25.1 mmol/L (22-26) 05/18/24 23:19 ABG O2 Saturation 96.4 05/18/24 23:19 ABG Base Excess -0.4 mmol/L (-2.0-2.0) 05/18/24 23:19 Matthew Test N/a 05/18/24 23:19 A-a O2 Gradient 1.6 mmHg (5-10) L 05/18/24 23:19 Hematocrit 25.4 % (42-52) L 05/18/24 23:19 Hgb O2 Saturation 92.8 % (95-100) L 05/18/24 23:19 Carboxyhemoglobin 2.4 %THgb (0.4-20.1) 05/18/24 23:19 Methemoglobin 1.4 % (0.4-1.5) 05/18/24 23:19 Total Hemoglobin 8.3 g/dL (14-18) L 05/18/24 23:19 Sodium 135.0 mmol/L (131-143) 05/18/24 23:19 Potassium 7.5 mmol/L (3.5-5.0) H 05/18/24 23:19 Glucose 222.0 mg/dL (70-115) H 05/18/24 23:19 Ionized Calcium 1.2 mmol/L (1.1-1.4) 05/18/24 23:19 O2 Delivery Device Nc 05/18/24 23:19 O2 Liters/Min 4.0 % 05/18/24 23:19 Clinical Lab Clerk ID [email or web address] 05/18/24 23:19 Sodium 137 mmol/L (136-145) 05/22/24 04:52 Potassium 4.7 mmol/L (3.5-5.1) 05/22/24 04:52 Chloride 98 mmol/L (98-107) 05/22/24 04:52 Carbon Dioxide 27 mmol/L (22-29) 05/22/24 04:52 Anion Gap 16.7 (5-19) 05/22/24 04:52 BUN 40 mg/dL (8-23) H 05/22/24 04:52 Creatinine 2.6 mg/dL (0.7-1.2) H 05/22/24 04:52 GFR Calculation 24.7 mL/min (90-130) L 05/22/24 04:52 Glucose 171 mg/dL (65-115) H 05/22/24 04:52 POC Glucose 152 mg/dL (70-110) H 05/22/24 07:29 Calculated Osmolality 298 mOsm/kg (285-295) H 05/22/24 04:52 Lactic Acid 1.1 mmol/L (0.5-2.2) 05/18/24 23:12 Uric Acid 10.4 mg/dL (3.4-7.0) H 05/19/24 05:20 Calcium 8.4 mg/dL (8.5-10.5) L 05/22/24 04:52 Phosphorus 4.5 mg/dL (2.5-4.5) 05/22/24 04:52 Magnesium 1.8 mg/dL (1.7-2.3) 05/22/24 04:52 Iron 31 ug/dL (59-158) L 05/19/24 05:20 TIBC 321 mcg/dl 05/19/24 05:20 % Saturation 9.6 % (20-50) L 05/19/24 05:20 Unsat Iron Binding 290 ug/dL (112-347) 05/19/24 05:20 Ferritin 61 ng/mL (30-400) 05/19/24 05:20 Total Bilirubin 0.2 mg/dL (0.15-1.2) 05/22/24 04:52 AST 20 U/L (0-40) 05/22/24 04:52 ALT 12 U/L (0-41) 05/22/24 04:52 Alkaline Phosphatase 131 U/L (40-130) H 05/22/24 04:52 Creatine Kinase 148 U/L (39-308) 05/18/24 23:12 Troponin T Baseline 107 ng/L (0-15) H* 05/18/24 23:12 Troponin T 120 Minute 96.40 ng/L (0-15) H 05/19/24 00:54 Delta Troponin T -10.60 ABS# (0-10) L 05/19/24 00:54 Troponin T Hi Sens 6Hr 106.5 ng/L (0-15) H 05/19/24 05:20 Troponin T Hi Sens 6Hr Delta -0.5 ng/L (0-12) L 05/19/24 05:20 NT-Pro-B Natriuret Pep 1743 pg/mL (0-125) H 05/18/24 23:12 Total Protein 6.5 g/dL (6.6-8.7) L 05/22/24 04:52 Albumin 3.4 g/dL (3.5-5.2) L 05/22/24 04:52 Globulin 3.1 g/dL (1.3-4.6) 05/22/24 04:52 25-OH Vitamin D Total 6 ng/mL (30-100) L 05/19/24 05:20 Procalcitonin 0.11 ng/mL (0-0.5) 05/19/24 18:08 TSH 1.66 uIU/mL (0.27-4.20) 05/19/24 09:31 PTH Intact 36.7 pg/mL (15-65) 05/19/24 05:20 Calcium (PTH Intact) 9.2 mg/dL (8.5-10.5) 05/19/24 05:20 Urine Color Yellow (Yellow) 05/19/24 01:11 Urine Appearance Clear (CLEAR) 05/19/24 01:11 Urine pH 5.0 (5-7) 05/19/24 01:11 Ur Specific [place] 1.013 (1.005-1.030) 05/19/24 01:11 Urine Protein 3+ (Negative) A 05/19/24 01:11 Urine Glucose (UA) Trace (Normal) H 05/19/24 01:11 Urine Ketones Negative (Negative) 05/19/24 01:11 Urine Blood Negative (Negative) 05/19/24 01:11 Urine Nitrate Negative (Negative) 05/19/24 01:11 Urine Bilirubin Negative (Negative) 05/19/24 01:11 Urine Urobilinogen 0.2 mg/dL (Negative) 05/19/24 01:11 Ur Leukocyte Esterase Negative (Negative) 05/19/24 01:11 Urine RBC 0-2 /hpf (0-2) 05/19/24 01:11 Urine WBC 0-5 /hpf (0-5) 05/19/24 01:11 Ur Squamous Epith Cells 0-5 /hpf (0-5) 05/19/24 01:11 Amorphous Sediment Not Reportable 05/19/24 01:11 Urine Bacteria None seen /hpf (NONE) 05/19/24 01:11 Hyaline Casts 0.40 /lpf 05/19/24 01:11 Ur Random Sodium 73 mmol/L 05/19/24 01:11 Ur Random Potassium 38 mmol/L 05/19/24 01:11 Ur Random Chloride 76 mmol/L 05/19/24 01:11 Coronavirus (PCR) Negative (Negative) 05/18/24 23:12 Hepatitis C Antibody Non-reactive (Nonreactive) 05/18/24 23:12 Influenza A (PCR) Negative (Negative) 05/18/24 23:12 Influenza Type B (PCR) Negative (Negative) 05/18/24 23:12 RSV (PCR) Negative (Negative) 05/18/24 23:12 Blood Type O Negative 05/21/24 11:22 Rho(D) Type Rh negative 05/21/24 11:22 Antibody Screen Negative 05/21/24 11:22 Crossmatch See Detail 05/21/24 11:22 Vitals Last Vital Signs Temp 98.2 F 05/22/24 06:00 Pulse 70 05/22/24 08:21 Resp 18 05/22/24 06:00 BP 154/57 05/22/24 06:00 Pulse Ox 95 05/22/24 08:21 O2 Del Method Nasal Cannula 05/22/24 08:21 O2 Flow Rate 3 05/22/24 08:21 Discharge Plan Discharge Patient Disposition: Home Condition: Stable Prescriptions: New Lokelma 10 gram powder in packet 10 g PO EVERY OTHER DAY 30 Days Qty: 15 0RF Continued sertraline 100 mg tablet 100 mg PO QAM clonazepam 1 mg tablet 0.5 mg PO BEDTIME PRN (Reason: Sleep) levothyroxine 25 mcg tablet 25 mcg PO DAILY levocetirizine 5 mg tablet 5 mg PO DAILY simvastatin 10 mg tablet 10 mg PO DAILY tamsulosin 0.4 mg capsule 0.4 mg PO DAILY ipratropium-albuterol 0.5 mg-3 mg(2.5 mg base)/3 mL Solution For Nebulization 3 ml inhalation Q6H PRN (Reason: Shortness Of Breath) Qty: 280 0RF isosorbide mononitrate 30 mg Tablet Extended Release 24 Hr 30 mg PO BID Qty: 60 0RF pantoprazole 40 mg Tablet,Delayed Release (Dr/Ec) 40 mg PO BID Qty: 60 0RF pramipexole 0.25 mg Tablet 0.25 mg PO TID PRN (Reason: Restless Leg Syndrome) Qty: 90 0RF amlodipine 10 mg tablet 10 mg PO DAILY gabapentin 300 mg capsule 300 mg PO TID omeprazole 20 mg capsule,delayed release(DR/EC) 20 mg PO DAILY Changed hydralazine 50 mg Tablet 100 mg PO TID Qty: 90 0RF metoprolol tartrate 25 mg Tablet 25 mg PO BID@0900,2100 Qty: 120 0RF insulin glargine [Lantus Solostar U-100 Insulin] 100 unit/mL (3 mL) insulin pen 16 unit SUBCUT BID Qty: 10 0RF bumetanide 1 mg Tablet 1.5 mg PO BID Qty: 60 0RF Discontinued lisinopril 20 mg tablet 20 mg PO DAILY spironolactone 50 mg tablet 50 mg PO DAILY Discharge Orders: Discharge Order (Routine); Ordered 05/22/24 Ordered By: Daksha العلي Other Ambulatory Orders: Basic Metabolic Panel (Q7D) Timeframe: 20240529 Facility: [facility] - Location: Lab - Main Lab Ordered By: Daksha العلي Basic Metabolic Panel (Q7D) Timeframe: 20240605 Facility: [facility] - Location: Lab - Main Lab Ordered By: Daksha Zohra Basic Metabolic Panel (Q7D) Timeframe: 20240612 Facility: [facility] - Location: Lab - Main Lab Ordered By: Daksha Zohra Complete Blood Count w/Auto (Q7D) Timeframe: 20240529 Location: Determined by Patient Ordered By: Daksha Zohra Complete Blood Count w/Auto (Q7D) Timeframe: 20240605 Location: Determined by Patient Ordered By: Daksha Zohra Complete Blood Count w/Auto (Q7D) Timeframe: 20240612 Location: Determined by Patient Ordered By: Daksha Zohra Referrals: Jairo Root DO [Physician] - 1 week (please follow with primary care physican for evaluation of scope for this patient ) Rachel Bills MD [Primary Care Provider] - 05/28/24 2:30 pm Richard Mayer MD [Hospitalist] - 7-10 days (We have notified your physician's clinic of the need for a follow-up appointment to be scheduled. If you have not heard from them within the next 2 business days, please call them directly. for referral / iron deficiency anema ) Discharge Diet: Cardiac and Diabetic Discharge Activity: Resume usual activity Patient Instructions: Heart Failure (DC), A-fib (Atrial Fibrillation) (DC), Acute Kidney Injury (DC), Potassium Content of Foods List (DC), Hyperkalemia (DC), Anemia (DC), Shortness of Breath (DC), CHF Stoplight, Chest Pain Stoplight, Opioid Safety Activity Restrictions/Additional Instructions: Low potassium diet. Discharge Attestations Time Spent in Discharge Care*: greater than 30 min Quality Metrics Clinical Quality Measures [ No reported AMI, CVA or VTE this stay] Coding Level of Care Code Acute Code for Chg Fwd Diagnoses Acute kidney injury superimposed on CKD N17.9; N18.9
[2024-05-22] MEDS: ferric gluconate 125 MG in sodium chloride 0.9% (100 ml) 100 ML 110 MG IV (11:13)
[2024-05-22 12:17] LABS: Glucose Point of Care 175 mg/dL (70-110)
--- NOTE | 2024-05-22 15:54 | PC.NURSE ---
Discharged patient, meds to beds. IV removed. Asher catheter removed. Educated patient on upcoming appointments, blood draws, and new/changed medications.
== END 2024-05-22 13:10 | disposition home health service (06) | DRG 641 ==
LOC: ER 05-19 00:28 → ICU 05-19 00:51
PROVIDERS: Internal Medicine Nephrology; Admitting Provider Internal Medicine; Emergency Provider Emergency Medicine; PCP Family Medicine; Visit Provider Internal Medicine
DX: E87.5 Hyperkalemia (principal); N17.9 Acute kidney failure, unspecified; I13.0 Hypertensive heart and chronic kidney disease with heart failure and stage 1 through stage 4 chronic kidney disease, or unspecified chronic kidney disease; I50.32 Chronic diastolic (congestive) heart failure; N18.4 Chronic kidney disease, stage 4 (severe); J96.11 Chronic respiratory failure with hypoxia; Z68.42 Body mass index [BMI] 45.0-49.9, adult; E11.22 Type 2 diabetes mellitus with diabetic chronic kidney disease; E11.65 Type 2 diabetes mellitus with hyperglycemia; I48.91 Unspecified atrial fibrillation; K21.9 Gastro-esophageal reflux disease without esophagitis; D63.1 Anemia in chronic kidney disease; F41.9 Anxiety disorder, unspecified; F32.A Depression, unspecified; Z87.01 Personal history of pneumonia (recurrent); D50.9 Iron deficiency anemia, unspecified; F17.210 Nicotine dependence, cigarettes, uncomplicated; E55.9 Vitamin D deficiency, unspecified; J44.9 Chronic obstructive pulmonary disease, unspecified; E66.01 Morbid (severe) obesity due to excess calories; Z99.81 Dependence on supplemental oxygen; Z79.4 Long term (current) use of insulin; Z82.49 Family history of ischemic heart disease and other diseases of the circulatory system; Z80.1 Family history of malignant neoplasm of trachea, bronchus and lung; Z83.3 Family history of diabetes mellitus; Z82.3 Family history of stroke
CPT/HCPCS: 36415; 36416; 36430; 36600; 51702; 71045; 71250; 76770; 80048; 80051; 80053; 81001; 82306; 82310; 82330; 82436; 82550; 82728; 82805; 82962; 83540; 83550; 83605; 83735; 83880; 83970; 84100; 84132; 84133; 84145; 84300; 84443; 84484; 84550; 85025; 86803; 86850; 86900; 86920; 87040; 87637; 93005; 96372; 96374; 96375; 97161; 97530; 99285; J0360; J0456; J0612; J0696; J1815; J2916; J3490; J7050; J7120; J7799; P9016; Q4081

== ENCOUNTER 2024-06-23 11:38 | Inpatient (IN) | payer MEDICARE, SELFPAY ==
[2024-06-23] VITALS (10 sets, daily range): BP systolic 169–187; BP diastolic 67–83; PULSE 70–101; RESP 16–21; TEMP 36.6–37.1; O2SAT 93–98; BMI 47.5; BMI 50.8
--- NOTE | 2024-06-23 11:43 | ECG_ITS ---
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 Measurements Intervals [place] Rate: 83 P: 0 [place]: 0 QRS: 35 QRSD: 113 T: 80 QT: 369 QTc: 434 Interpretive Statements ATRIAL FIBRILLATION LOW QRS VOLTAGE IN PRECORDIAL LEADS [QRS DEFLECTION < 1.0 mV IN CHEST LEADS] MODERATE INTRAVENTRICULAR CONDUCTION DELAY [105+ ms QRS DURATION, 80+ ms Q/S IN V1/V2, NO Q AND 60+ ms R IN I/aVL/V5/V6] MODERATE ST DEPRESSION [0.05+ mV ST DEPRESSION] Compared to ECG 05/19/2024 04:20:16 Low QRS voltage now present ST (T wave) deviation now present Sinus rhythm no longer present Electronically Signed On 06-27-2024 23:18:59 INSPECTOR PRECISION by Bora Gómez M.D. [email or web address]
--- NOTE | 2024-06-23 11:44 | XRR_ITS ---
PROCEDURE INFORMATION: Exam: XR Chest Exam date and time: 06/23/2024 11:50 AM Age: 68 years old Clinical indication: Cough and dyspnea; Additional info: Dyspnea/cough TECHNIQUE: Imaging protocol: Radiologic exam of the chest. Views: 1 view. COMPARISON: CT chest con [id number] 05/19/2024 8:47 PM FINDINGS: Lungs: Central interstitial markings are indistinct bilaterally. There is mild asymmetric ground-glass opacity in the lower left lung, partially obscuring the left heart border. Pleural spaces: There is no pleural effusion or pneumothorax. Heart/Mediastinum: There is moderate enlargement of the cardiac silhouette. Bones/joints: Bones are unremarkable. XR/XR chest 1V portable [id number] IMPRESSION: 1. Asymmetric opacity in the left lower lung. Nonspecific finding. Possible atelectasis/scarring, edema or infection. 2. Indistinct central interstitial markings may be related to AP technique or interstitial edema. 3. Mild cardiac enlargement.
--- NOTE | 2024-06-23 12:12 | ED_ITS ---
HPI - Weakness 2 General: Chief complaint: Weakness Stated complaint: gen weakness Time Seen by Provider: 06/23/24 11:42 History of Present Illness: 68-year-old male presents emergency room generally complaining of weakness and dark stools. He is known to have anemia he is told they were going to give him iron infusion. 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 He has a history of severe COPD and he is on 4 L/min continuously denies chest pain. Mild abdominal discomfort and generalized weakness. Has difficulty with urinary control wears depends. He has had decreased urinary output the last couple of days. Associated symptoms: Denies chest pain, chills, dysuria or fever(s) Review of Systems 2 Const: Denies: fever(s) or chills Card: Denies: chest pain Resp: Denies: dyspnea GI: Denies: abdominal pain : Reports: difficulty urinating and oliguria; Denies: dysuria, urinary frequency or urinary urgency Musc: Denies: neck pain or back pain Skin/Breast: Denies: rash PFSH ED 2 PFSH: Medical History Anemia Acute hyperkalemia Hypotension Hypochromic microcytic anemia Anxiety and depression Normocytic anemia Heart failure Atrial flutter Pneumonia Respiratory failure Iron deficiency anemia Brain aneurysm Necrotizing fasciitis of shoulder region Diabetes Surgical History Status post colonoscopy (10/18/21) H/O esophagogastroduodenoscopy (10/18/21) History of shoulder surgery Family History Grandfather Clotting disorder Family/Other CAD (coronary artery disease) Cancer Diabetes Stroke Grandmother CAD (coronary artery disease) Dementia Father Cancer Lung disease Mother Cancer Denies family history of Chronic kidney disease (CKD) Suicide Anesthesia complication Bleeding disorder Social History Smoking and tobacco/nicotine status: current every day tobacco/nicotine user (1 ppd, smoked x 50 years) cigarettes Packs smoked per day: 2 Years cigarettes smoked: 50 [ Other cigarette details: started at age 16] Alcohol intake: never Substance/Drug Use: never Physical Exam 2 Const: GENERAL APPEARANCE: cooperative ORIENTATION/CONSCIOUSNESS: Yes awake, Yes oriented to person, Yes oriented to place and Yes oriented to time HENMT: COMMON NORMALS: normocephalic, atraumatic and hearing grossly normal bilaterally HEAD & SCALP: normocephalic and atraumatic Resp: COMMON NORMALS: normal respiratory effort, No retractions, No use of accessory muscles and clear to auscultation bilaterally AUSCULTATION: clear to auscultation bilaterally Cardio: COMMON NORMALS: regular rate, regular rhythm and No murmurs present (Cardio) RATE: regular rate RHYTHM: regular rhythm GI: COMMON NORMALS: Soft to palpation and No hepatosplenomegaly present A USCULTATION: Yes normoactive bowel sounds PALPATION: Yes Soft to palpation, No Tenderness to palpation present (GI), No Guarding due to palpation present (GI) and Yes No hepatosplenomegaly present Extremity: COMMON NORMALS: normal to inspection, capillary refill normal, no clubbing, cyanosis or edema, no calf tenderness and no pedal edema Neuro: SENSORIUM/ORIENTATION: Yes oriented to person, Yes oriented to place and Yes oriented to time Skin: COMMON NORMALS: no rashes or lesions noted GENERAL SKIN EXAM: no rashes or lesions noted Course 2 Vital Signs: Vital signs: Vital Signs Temperature 98.3 F 06/23/24 11:39 Pulse Rate 73 06/23/24 13:01 Respiratory Rate 20 H 06/23/24 11:39 Blood Pressure 172/71 06/23/24 13:01 Pulse Oximetry 95 06/23/24 13:01 Oxygen Delivery Me thod Nasal Cannula 06/23/24 13:01 Oxygen Flow Rate 4 06/23/24 13:01 MDM - Weakness Medical Decision Making Anemia with a hemoglobin of 7 3 chronic kidney disease, creatinine at 2.6. Will place on observation transfuse a unit of packed red blood cells. Discussed with hospitalist orders written. Patient will need to be in the hospital with a transfusion to make sure his fluid status is maintained properly and his kidney function does not worsen. Additionally he is symptomatic of his anemia enough that he has not been able to get up and ambulate Medical Records I reviewed the patient's medical records. Lab Data I reviewed the patient's lab results. 06/23/24 11:44 06/23/24 11:44 Radiology Impressions Chest X-Ray 06/23/24 11:44 IMPRESSION: 1. Asymmetric opacity in the left lower lung. Nonspecific finding. Possible atelectasis/scarring, edema or infection. 2. Indistinct central interstitial markings may be related to AP technique or interstitial edema. 3. Mild cardiac enlargement. Laboratory Results WBC 11.64 10^3/uL (3.29-11.43) H 06/23/24 11:44 RBC 2.64 10^6/uL (3.85-5.65) L 06/23/24 11:44 Hgb 7.30 g/dL (11.27-16.99) L 06/23/24 11:44 Hct 24.6 % (37-53) L 06/23/24 11:44 MCV 93.2 fl (82-101) 06/23/24 11:44 MCH 27.7 pg (27-33) 06/23/24 11:44 MCHC 29.7 g/dL (30-55) L 06/23/24 11:44 RDW 13.4 % (12.1-15.1) 06/23/24 11:44 Plt Count 181 10^3/cmm (157-399) 06/23/24 11:44 MPV 10.3 fL (7.4-10.4) 06/23/24 11:44 Neut % (Auto) 82.9 % 06/23/24 11:44 Lymph % (Auto) 7.9 % 06/23/24 11:44 Hamlin % (Auto) 6.6 % 06/23/24 11:44 Eos % (Auto) 1.4 % 06/23/24 11:44 Baso % (Auto) 0.3 % 06/23/24 11:44 Neut # (Auto) 9.64 10^3/uL (1.8-7.7) H 06/23/24 11:44 Lymph # (Auto) 0.9 10^3/uL (0.8-4.8) 06/23/24 11:44 Hamlin # (Auto) 0.8 10^3/uL (0.2-0.9) 06/23/24 11:44 Eos # (Auto) 0.2 10^3/uL (0.0-0.8) 06/23/24 11:44 Baso # (Auto) 0.0 10^3/uL (0.0-0.1) 06/23/24 11:44 Nucleated RBC % (auto) 0 % 06/23/24 11:44 Nucleated RBCs # 0.0 /100WBC 06/23/24 11:44 Sodium 137 mmol/L (136-145) 06/23/24 11:44 Potassium 4.9 mmol/L (3.5-5.1) 06/23/24 11:44 Chloride 100 mmol/L (98-107) 06/23/24 11:44 Carbon Dioxide 25 mmol/L (22-29) 06/23/24 11:44 Anion Gap 16.9 (5-19) 06/23/24 11:44 BUN 66 mg/dL (8-23) H 06/23/24 11:44 Creatinine 2.6 mg/dL (0.7-1.2) H 06/23/24 11:44 GFR Calculation 24.7 mL/min (90-130) L 06/23/24 11:44 Glucose 378 mg/dL (65-115) H 06/23/24 11:44 Calculated Osmolality 319 mOsm/kg (285-295) H 06/23/24 11:44 Calcium 9.0 mg/dL (8.5-10.5) 06/23/24 11:44 Total Bilirubin 0.2 mg/dL (0.15-1.2) 06/23/24 11:44 AST 13 U/L (0-40) 06/23/24 11:44 ALT 11 U/L (0-41) 06/23/24 11:44 Alkaline Phosphatase 155 U/L (40-130) H 06/23/24 11:44 Total Protein 7.0 g/dL (6.6-8.7) 06/23/24 11:44 Albumin 3.5 g/dL (3.5-5.2) 06/23/24 11:44 Globulin 3.5 g/dL (1.3-4.6) 06/23/24 11:44 Blood Type O Negative 06/23/24 13:40 Rho(D) Type Rh negative 06/23/24 13:40 All radiology interpretation(s) finalized by discharge Discharge Plan Discharge Patient Disposition: Placed in Observation Clinical Impression: Anemia, Atrial fibrillation, Heart failure with preserved ejection fraction, HTN (hypertension), Chronic kidney disease (CKD) Condition: Stable Prescriptions: No Action sertraline 100 mg tablet 100 mg PO QAM clonazepam 1 mg tablet 0.5 mg PO BEDTIME PRN (Reason: Sleep) levothyroxine 25 mcg tablet 25 mcg PO QAM levocetirizine 5 mg tablet 5 mg PO QAM hydralazine 100 mg tablet 100 mg PO TID trazodone 150 mg tablet 150 mg PO BEDTIME ferrous sulfate 325 mg (65 mg iron) tablet 325 mg PO BID Veltassa 8.4 gram powder in packet 8.4 g PO .QOD simvastatin 10 mg tablet 10 mg PO QPM tamsulosin 0.4 mg capsule 0.4 mg PO QPM ipratropium-albuterol 0.5 mg-3 mg(2.5 mg base)/3 mL Solution For Nebulization 3 ml inhalation Q6H PRN (Reason: Shortness Of Breath) Qty: 280 0RF isosorbide mononitrate 30 mg Tablet Extended Release 24 Hr 30 mg PO BID Qty: 60 0RF pantoprazole 40 mg Tablet,Delayed Release (Dr/Ec) 40 mg PO BID Qty: 60 0RF pramipexole 0.25 mg Tablet 0.25 mg PO TID PRN (Reason: Restless Leg Syndrome) Qty: 90 0RF amlodipine 10 mg tablet 10 mg PO QAM gabapentin 300 mg capsule 300 mg PO TID omeprazole 20 mg capsule,delayed release(DR/EC) 20 mg PO QAM metoprolol tartrate 25 mg Tablet 25 mg PO BID@0900,2100 Qty: 120 0RF insulin glargine [Lantus Solostar U-100 Insulin] 100 unit/mL (3 mL) insulin pen 16 unit SUBCUT BID Qty: 10 0RF bumetanide 1 mg Tablet 1.5 mg PO BID Qty: 60 0RF Rx Instructions: AM and NOON Referrals: Rachel Bills MD [Primary Care Provider] - Coding Level of Care Code ED Forming And Assembling Supervisor for Chg Fwd Related Data Home Medications Medication Instructions Recorded Confirmed clonazepam 1 mg tablet 0.5 mg PO BEDTIME PRN Sleep 08/07/21 06/23/24 sertraline 100 mg tablet 100 mg PO QAM 08/07/21 06/23/24 levocetirizine 5 mg tablet 5 mg PO QAM 02/16/22 06/23/24 levothyroxine 25 mcg tablet 25 mcg PO QAM 02/16/22 06/23/24 simvastatin 10 mg tablet 10 mg PO QPM 12/16/23 06/23/24 tamsulosin 0.4 mg capsule 0.4 mg PO QPM 12/16/23 06/23/24 amlodipine 10 mg tablet 10 mg PO QAM 05/19/24 06/23/24 gabapentin 300 mg capsule 300 mg PO TID 05/19/24 06/23/24 omeprazole 20 mg capsule,delayed 20 mg PO QAM 05/19/24 06/23/24 release ferrous sulfate 325 mg (65 mg 325 mg PO BID 06/23/24 06/23/24 iron) tablet hydralazine 100 mg tablet 100 mg PO TID 06/23/24 06/23/24 patiromer calcium sorbitex 8.4 8.4 g PO .QOD 06/23/24 06/23/24 gram oral powder packet (Veltassa) trazodone 150 mg tablet 150 mg PO BEDTIME 06/23/24 06/23/24 Previous Rx's Medication Instructions Recorded ipratropium 0.5 mg-albuterol 3 mg 3 ml inhalation Q6H PRN Shortness 12/19/23 (2.5 mg base)/3 mL nebulization Of Breath #280 mL soln isosorbide mononitrate 30 mg 30 mg PO BID #60 tabs 12/19/23 tablet,extended release 24 hr pantoprazole 40 mg tablet,delayed 40 mg PO BID #60 tabs 12/19/23 release pramipexole 0.25 mg tablet 0.25 mg PO TID PRN Restless Leg 12/19/23 Syndrome #90 tabs bumetanide 1 mg tablet 1.5 mg (1.5 x 1 mg) PO BID #60 tabs 05/22/24 insulin glargine 100 unit/mL (3 16 unit (0.16 mL) SUBCUT BID #10 mL 05/22/24 mL) subcutaneous pen (Lantus Solostar U-100 Insulin) metoprolol tartrate 25 mg tablet 25 mg PO BID@0900,2100 #120 tabs 05/22/24 Allergies Allergy/AdvReac Type Severity Reaction Status Date / Time No Known Allergies Allergy Verified 05/18/24 22:52
[2024-06-23 12:32] LABS: Basophils % 0.3 %; Eosinophils # 0.2 10^3/uL (0.0-0.8); Eosinophils % 1.4 %; Hematocrit 24.6 % (37-53); Lymphocytes # 0.9 10^3/uL (0.8-4.8); Lymphocytes % 7.9 %; Mean Corpuscular HGB Conc 29.7 g/dL (30-55); Mean Corpuscular Hemoglobin 27.7 pg (27-33); Mean Corpuscular Volume 93.2 fl (82-101); Mean Platelet Volume 10.3 fL (7.4-10.4); Monocytes # 0.8 10^3/uL (0.2-0.9); Monocytes % 6.6 %; Neutrophils # 9.64 10^3/uL (1.8-7.7); Neutrophils % 82.9 %; Nucleated Red Blood Cells % 0 %; Platelet Count 181 10^3/cmm (157-399); Red Blood Count 2.64 10^6/uL (3.85-5.65); Red Cell Distribution Width 13.4 % (12.1-15.1); White Blood Count 11.64 10^3/uL (3.29-11.43)
[2024-06-23 12:48] LABS: Alanine Aminotransferase 11 U/L (0-41); Albumin Level 3.5 g/dL (3.5-5.2); Alkaline Phosphatase 155 U/L (40-130); Anion Gap 16.9 (5-19); Aspartate Amino Transferase 13 U/L (0-40); Blood Urea Nitrogen 66 mg/dL (8-23); Carbon Dioxide 25 mmol/L (22-29); Chloride 100 mmol/L (98-107); Creatinine Clr Calc Pharmacy 43.5605; Globulin 3.5 g/dL (1.3-4.6); Glomerular Filtration Rate 24.7 mL/min (90-130); Glucose 378 mg/dL (65-115); Osmolality Calculated 319 mOsm/kg (285-295); Potassium 4.9 mmol/L (3.5-5.1); Sodium 137 mmol/L (136-145); Total Bilirubin 0.2 mg/dL (0.15-1.2)
[2024-06-23] MEDS: sodium chloride 0.9% 500 ML 999 ML IV (14:41)
--- NOTE | 2024-06-23 14:47 | P.HP_ITS ---
Providers/Chief Complaint 2 Primary Care Provider: Rachel Bills MD Chief Complaint: gen weakness History of Present Illness Juan Thomas is a 68 year old male with a past medical history of CKD, morbid obesity, type 2 diabetes mellitus, CHF, hypertension, atrial fibrillation who presents [facility] for complaints of weakness, fatigue, malaise. Currently patient is alert oriented x 3, following all commands, he denies any nausea, no vomiting, no abdominal pain, no chest pain, no shortness of breath does have lower extremity edema but not more than ordinary he tells me, no back pain no headache, blurry vision, he did have a fall a few weeks ago, no persistent pain, Review of Systems 2 Const: Reports: fatigue and malaise; Denies: fever(s) or chills Eyes: Denies: change in vision Card: Denies: chest pain Resp: Denies: dyspnea GI: Denies: abdominal pain : Denies: flank pain or difficulty urinating Musc: Denies: back pain Skin/Breast: Denies: rash Neuro: Denies: headache(s) Medications/Allergies Home Medications Medication Instructions Recorded Confirmed Last Taken Type clonazepam 1 mg tablet 0.5 mg PO BEDTIME PRN Sleep 08/07/21 06/23/24 06/22/24 History sertraline 100 mg tablet 100 mg PO QAM 08/07/21 06/23/24 06/22/24 History levocetirizine 5 mg tablet 5 mg PO QAM 02/16/22 06/23/24 06/22/24 History levothyroxine 25 mcg tablet 25 mcg PO QAM 02/16/22 06/23/24 06/22/24 History simvastatin 10 mg tablet 10 mg PO QPM 12/16/23 06/23/24 06/22/24 History tamsulosin 0.4 mg capsule 0.4 mg PO QPM 12/16/23 06/23/24 06/22/24 History ipratropium 0.5 mg-albuterol 3 mg 3 ml inhalation Q6H PRN Shortness 12/19/23 06/23/24 01/24/24 Rx (2.5 mg base)/3 mL nebulization Of Breath #280 mL soln isosorbide mononitrate 30 mg 30 mg PO BID #60 tabs 12/19/23 06/23/24 06/22/24 Rx tablet,extended release 24 hr pantoprazole 40 mg tablet,delayed 40 mg PO BID #60 tabs 12/19/23 06/23/24 06/22/24 Rx release pramipexole 0.25 mg tablet 0.25 mg PO TID PRN Restless Leg 12/19/23 06/23/24 06/22/24 Rx Syndrome #90 tabs amlodipine 10 mg tablet 10 mg PO QAM 05/19/24 06/23/24 06/22/24 History gabapentin 300 mg capsule 300 mg PO TID 05/19/24 06/23/24 06/22/24 History omeprazole 20 mg capsule,delayed 20 mg PO QAM 05/19/24 06/23/24 06/22/24 History release bumetanide 1 mg tablet 1.5 mg (1.5 x 1 mg) PO BID #60 tabs 05/22/24 06/23/24 06/22/24 Rx insulin glargine 100 unit/mL (3 16 unit (0.16 mL) SUBCUT BID #10 mL 05/22/24 06/23/24 06/22/24 Rx mL) subcutaneous pen (Lantus Solostar U-100 Insulin) metoprolol tartrate 25 mg tablet 25 mg PO BID@0900,2100 #120 tabs 05/22/24 06/23/24 06/22/24 Rx ferrous sulfate 325 mg (65 mg 325 mg PO BID 06/23/24 06/23/24 06/22/24 History iron) tablet hydralazine 100 mg tablet 100 mg PO TID 06/23/24 06/23/24 06/22/24 History patiromer calcium sorbitex 8.4 8.4 g PO .QOD 06/23/24 06/23/24 06/21/24 History gram oral powder packet (Veltassa) trazodone 150 mg tablet 150 mg PO BEDTIME 06/23/24 06/23/24 06/22/24 History Allergies Allergy/AdvReac Type Severity Reaction Status Date / Time No Known Allergies Allergy Verified 05/18/24 22:52 PFSH Acute 2 PFSH: Medical History (Updated 06/23/24 @ 14:51 by Kiran Quinones MD) Pneumonia Anemia Acute hyperkalemia Hypotension Hypochromic microcytic anemia Anxiety and depression Normocytic anemia Heart failure Atrial flutter Respiratory failure Iron deficiency anemia Brain aneurysm Necrotizing fasciitis of shoulder region Diabetes Surgical History Status post colonoscopy (10/18/21) H/O esophagogastroduodenoscopy (10/18/21) History of shoulder surgery Family History Grandfather Clotting disorder Family/Other CAD (coronary artery disease) Cancer Diabetes Stroke Grandmother CAD (coronary artery disease) Dementia Father Cancer Lung disease Mother Cancer Denies family history of Chronic kidney disease (CKD) Suicide Anesthesia complication Bleeding disorder Social History Smoking and tobacco/nicotine status: current every day tobacco/nicotine user (1 ppd, smoked x 50 years) cigarettes Packs smoked per day: 2 Years cigarettes smoked: 50 [ Other cigarette details: started at age 16] Alcohol intake: never Substance/Drug Use: never Vitals/I&O/Wt Last Vital Signs Temp 98.3 F 06/23/24 11:39 Pulse 73 06/23/24 13:01 Resp 20 H 06/23/24 11:39 BP 172/71 06/23/24 13:01 Pulse Ox 95 06/23/24 13:01 O2 Del Method Nasal Cannula 06/23/24 13:01 O2 Flow Rate 4 06/23/24 13:01 Weight last 48 hrs Weight 163.293 kg Physical Exam 2 Const: COMMON NORMALS: no acute distress and patient oriented x3 HENMT: COMMON NORMALS: normocephalic HEAD & SCALP: normocephalic Eye: COMMON NORMALS: Equal, round and reactive pupils present and EOMs intact bilaterally Resp: COMMON NORMALS: normal respiratory effort, No retractions, No use of accessory muscles and clear to auscultation bilaterally AUSCULTATION: clear to auscultation bilaterally Cardio: COMMON NORMALS: no JVD, regular rate, regular rhythm, S1 normal heart sound present and S2 normal heart sound present RATE: regular rate RHYTHM: regular rhythm HEART SOUNDS: S1 normal heart sound present and S2 normal heart sound present GI: COMMON NORMALS: Normal to inspection, nondistended, normoactive bowel sounds present, Soft to palpation and non-tender Extremity: COMMON NORMALS: no calf tenderness and no pedal edema Neuro: COMMON NORMALS: patient oriented x3, CN's II-XII intact bilaterally and moves all extremities Psych: COMMON NORMALS: mental status grossly normal Data 06/23/24 11:44 06/23/24 11:44 A&P Assessment and plan (1) Pneumonia: (2) Generalized weakness: (3) HTN (hypertension): (4) Heart failure with preserved ejection fraction: (5) Atrial fibrillation: (6) Diabetes mellitus type 2, uncontrolled, with complications: Plan Generalized weakness ? UA pending ? Does have acute on chronic anemia, hemoglobin 7.3 check iron studies, monitor hemoglobin every 6 hours ? Protonix 40 IV twice daily, Carafate # Possible component of pneumonia seen on chest x-ray Pneumonia seen on chest x-ray ? Check CRP, Pro-Sylvester, blood cultures, respiratory viral panel ? Rocephin ? Azithromycin Type 2 diabetes mellitus Lantus 10 units twice daily low-dose sliding scale Bilateral lower extremity edema ? Continue home Bumex PT OT ? Lovenox for DVT prophylaxis Attestations 2 Medical Necessity Statement*: Patient requires hospitalization for concerns for generalized weakness, pneumonia, outpatient observation Diagnoses Pneumonia J18.9 Generalized weakness R53.1 HTN (hypertension) I10 Heart failure with preserved ejection fraction I50.30 Atrial fibrillation I48.91 Diabetes mellitus type 2, uncontrolled, with complications
[2024-06-23 15:45] LABS: NT Pro B Type Natriuretic Pept 3960 pg/mL (0-125); Procalcitonin 0.13 ng/mL (0-0.5)
[2024-06-23] MEDS: labetalol 5 mg/mL SDV 20mL 10 MG IVP (15:55)
[2024-06-23] MEDS: hyDRALAzine 20 mg/mL INJ 1 mL 10 MG IVP (15:55)
[2024-06-23 15:56] LABS: C Reactive Protein 31.9 mg/L (0.0-4.9); Ferritin 449 ng/mL (30-400); Iron 41 ug/dL (59-158); Percent Saturation 12.3 % (20-50); Total Iron Binding Capacity 331 mcg/dl; Unsaturated Iron Binding 290 ug/dL (112-347)
[2024-06-23 16:13] LABS: Lactic Sepsis W/Reflex 1.3 mmol/L (0.5-2.2)
[2024-06-23 17:00] LABS: Glucose Point of Care 451 mg/dL (70-110)
[2024-06-23 17:09] LABS: Bilirubin Urine Negative (Negative); Blood Urine Negative (Negative); Glucose Urine UA 2+ (Normal); Ketones Urine Negative (Negative); Leukocyte Esterase Urine Negative (Negative); Nitrate Urine Negative (Negative); Protein Urine 2+ (Negative); Specific Gravity, Urine 1.016 (1.005-1.030); Urine Appearance Clear (CLEAR); Urine Color Yellow (Yellow); Urobilinogen Urine 0.2 mg/dL (Negative)
[2024-06-23 17:12] LABS: Add Urine Microscopic? YES; Bacteria Urine None Seen /hpf; Hyaline Casts Urine 2.46 /lpf; RBC Urine 0-2 /hpf (0-2); Squamous Epithelial Cell Urine 0-5 /hpf (0-5); WBC Urine 0-5 /hpf (0-5)
[2024-06-23 17:27] LABS: Chol HDL Ratio 2.54 mg/dL (1.0-5.00); Cholesterol 94 mg/dL (0-200); HDL Cholesterol 37 mg/dL (60-100); LDL Cholesterol Calculated 44 mg/dL (50-129); LDL HDL Ratio 1.19 RATIO (0.00-3.22); Thyroid Stimulating Hormone 1.14 uIU/mL (0.27-4.20); Triglycerides 65 mg/dL (0-150)
[2024-06-23] MEDS: insulin lispro 100 unit/1 mL SUBCUT (17:53)
[2024-06-23] MEDS: bumetanide 1 mg Tablet 1.5 MG PO (17:59)
[2024-06-23] MEDS: sucralfate 1 gm Tablet PO (17:59)
[2024-06-23] MEDS: atorvastatin 40 mg Tablet PO (17:59)
[2024-06-23] MEDS: tamsulosin 0.4 mg Capsule PO (17:59)
[2024-06-23] MEDS: isosorbide mononitrate ER 30 mg Tablet PO (17:59)
[2024-06-23] MEDS: gabapentin 300 mg Capsule PO ×2 (17:59→20:27)
[2024-06-23] MEDS: pantoprazole 40 mg SDV IVP (18:29)
[2024-06-23] MEDS: cefTRIAXone 1,000 mg SDV 1000 MG IVP (18:31)
[2024-06-23 18:38] LABS: Hematocrit 22.4 % (37-53)
[2024-06-23] MEDS: AZITHROMYCIN ADD-Vantage 500 MG in 0.9% NaCl ADD-Vantage 250 ML 250 MG IV (18:38)
[2024-06-23] MEDS: insulin glargine 100 units/1 mL 10 UNIT SUBCUT (18:41)
[2024-06-23] MEDS: ipratropium-albuterol 3 mL Neb INHALATION (19:31)
[2024-06-23] MEDS: trazodone 150 mg Tablet PO (20:27)
[2024-06-23] MEDS: pramipexole 0.25 mg Tablet PO (20:27)
[2024-06-23] MEDS: metoprolol tartrate 25 mg Tablet PO (20:27)
[2024-06-23] MEDS: hyDRALAzine 50 mg Tablet 100 MG PO (20:27)
[2024-06-23 20:30] LABS: Glucose Point of Care 393 mg/dL (70-110)
[2024-06-23 21:24] LABS: Estmated Average Glucose 192; Hemoglobin A1C 8.3 % (4.0-6.0)
[2024-06-23] MEDS: nystatin cream 30 gm 1 APPLIC TOPICAL (21:36)
[2024-06-24] VITALS (24 sets, daily range): BP systolic 143–202; BP diastolic 60–89; PULSE 63–79; RESP 14–22; TEMP 36.6–37.5; O2SAT 90–97
[2024-06-24 02:28] LABS: Hematocrit 22.4 % (37-53)
[2024-06-24] MEDS: pantoprazole 40 mg SDV IVP ×2 (04:36→16:46)
[2024-06-24 06:02] LABS: Glucose Point of Care 314 mg/dL (70-110)
[2024-06-24] MEDS: sertraline 100 mg Tablet PO (06:10)
[2024-06-24] MEDS: sucralfate 1 gm Tablet PO ×2 (06:10→16:42)
[2024-06-24] MEDS: amlodipine 10 mg Tablet PO (06:11)
[2024-06-24] MEDS: levothyroxine 25 mcg Tablet PO (06:11)
[2024-06-24] MEDS: pramipexole 0.25 mg Tablet PO ×2 (06:19→15:11)
[2024-06-24 06:31] LABS: Basophils # 0.1 10^3/uL (0.0-0.1); Basophils % 0.5 %; Eosinophils # 0.2 10^3/uL (0.0-0.8); Hematocrit 22.7 % (37-53); Lymphocytes # 1.2 10^3/uL (0.8-4.8); Lymphocytes % 12.3 %; Mean Corpuscular HGB Conc 29.5 g/dL (30-55); Mean Corpuscular Hemoglobin 28.3 pg (27-33); Mean Corpuscular Volume 95.8 fl (82-101); Mean Platelet Volume 10.1 fL (7.4-10.4); Monocytes # 0.9 10^3/uL (0.2-0.9); Neutrophils # 7.52 10^3/uL (1.8-7.7); Neutrophils % 75.2 %; Nucleated Red Blood Cells % 0 %; Platelet Count 170 10^3/cmm (157-399); Red Blood Count 2.37 10^6/uL (3.85-5.65); Red Cell Distribution Width 13.6 % (12.1-15.1)
[2024-06-24 06:53] LABS: Alanine Aminotransferase 9 U/L (0-41); Albumin Level 3.3 g/dL (3.5-5.2); Alkaline Phosphatase 134 U/L (40-130); Anion Gap 17.4 (5-19); Aspartate Amino Transferase 12 U/L (0-40); Blood Urea Nitrogen 62 mg/dL (8-23); Calcium 8.6 mg/dL (8.5-10.5); Carbon Dioxide 23 mmol/L (22-29); Chloride 99 mmol/L (98-107); Creatinine Clr Calc Pharmacy 43.6271; Globulin 3.3 g/dL (1.3-4.6); Glomerular Filtration Rate 23.6 mL/min (90-130); Glucose 257 mg/dL (65-115); Magnesium 2.3 mg/dL (1.7-2.3); Osmolality Calculated 306 mOsm/kg (285-295); Phosphorus 3.7 mg/dL (2.5-4.5); Potassium 4.4 mmol/L (3.5-5.1); Sodium 135 mmol/L (136-145); Total Bilirubin 0.2 mg/dL (0.15-1.2); Total Protein 6.6 g/dL (6.6-8.7)
[2024-06-24] MEDS: ipratropium-albuterol 3 mL Neb INHALATION ×4 (08:05→19:48)
[2024-06-24] MEDS: nystatin cream 30 gm 1 APPLIC TOPICAL ×2 (08:30→17:57)
[2024-06-24] MEDS: insulin lispro 100 unit/1 mL SUBCUT ×3 (08:43→17:57)
[2024-06-24] MEDS: insulin glargine 100 units/1 mL 10 UNIT SUBCUT ×2 (08:46→17:57)
[2024-06-24] MEDS: bumetanide 1 mg Tablet 1.5 MG PO ×2 (08:50→17:57)
[2024-06-24] MEDS: isosorbide mononitrate ER 30 mg Tablet PO ×2 (08:55→17:58)
[2024-06-24] MEDS: hyDRALAzine 50 mg Tablet 100 MG PO ×3 (08:56→20:25)
[2024-06-24] MEDS: metoprolol tartrate 25 mg Tablet PO ×2 (08:57→20:25)
[2024-06-24] MEDS: gabapentin 300 mg Capsule PO ×3 (08:57→20:25)
--- NOTE | 2024-06-24 10:00 | PC.CHAP ---
Pastoral Care Encounter/Spiritual Assessment Type of Contact [] Declined riveter hand visit [] Patient/Family/Request visit [] Outpatient visit [] Follow-up visit [] Physician referral [] Code/Alert [] Routine visit [] Staff referral [] Actively dying [x] Patient sleeping [] Family support [] [] Out of room [] Palliative care [] [x] Receiving care in room [] Pre-surgical visit [] Trauma [] Long length of stay [] ICU visit [] Other: Relational/Emotional Strength [] Patient feels connected with others/family/visitors/staff [] Distress [] Loneliness/isolation [] Abandonment Spirituality of Patient [] Person of Kasia [] Attends Anabaptism of their Kasia [] Believes in Prayer [] Reads Bible or Alevism materials [] There are Spiritual issues to be addressed [employer] Department Chair Interventions [] Prayer [] Active listening [] Non-anxious presence [] Spiritual/emotional support [] Crisis/trauma care [] Spiritual counseling [] Bereavement support [] Provided bereavement packet [] Provided Bible/devotional materials [] Provided toy/stuffed animal, coloring book to patient or family member [] Provided Communion [] Anointing/Rumely [] Salvation [] Completed spiritual assessment [] Other: Impact on Illness or Injury [] Angry [] Fearful [] Anxious [] Often cries [] Exhaustion [] Unable to work [] Unable to attend muslim [] Unable to walk/stand [] Unable to read [] Unable to drive [] Unable to eat/drink [] Unable to sleep [] Unable to be with family [] Patient intubated [] Other: Summary Time spent with patient
[2024-06-24 10:41] LABS: Hematocrit 21.5 % (37-53)
[2024-06-24 11:05] LABS: Glucose Point of Care 369 mg/dL (70-110)
[2024-06-24] MEDS: sodium chloride 0.9% 100 mL Bag 50 ML IV (11:54)
[2024-06-24 13:56] LABS: Bacillus cereus group Not Detected (NOT DETECT); Bacillus subtillis group Not Detected (NOT DETECT); Corynebacterium Not Detected (NOT DETECT); Cutibacterium acnes (P.acnes) Not Detected (NOT DETECT); Enterococcus Not Detected (NOT DETECT); Enterococcus faecalis Not Detected (NOT DETECT); Enterococcus faecium Not Detected (NOT DETECT); Lactobacillus species Not Detected (NOT DETECT); Listeria Not Detected (NOT DETECT); Listeria monocytogenes Not Detected (NOT DETECT); Micrococcus Not Detected (NOT DETECT); Pan Candida Not Detected (NOT DETECT); Pan Gram-Negative Not Detected (NOT DETECT); Staphylococcus epidermidis Detected (NOT DETECT); Staphylococcus lugdunensis Not Detected (NOT DETECT); Staphylococcus species Detected (NOT DETECT); Streptococcus agalactiae Not Detected (NOT DETECT); Streptococcus anginosus group Not Detected (NOT DETECT); Streptococcus pneumoniae Not Detected (NOT DETECT); Streptococcus pyogenes Not Detected (NOT DETECT); Streptococcus species Not Detected (NOT DETECT); mecA Detected (NOT DETECT); mecC Not Detected (NOT DETECT)
[2024-06-24] MEDS: bisacodyl 5 mg Tablet 10 MG PO ×2 (15:13→23:48)
[2024-06-24] MEDS: magnesium citrate Btl 296 mL PO ×2 (15:16→15:17)
[2024-06-24 16:02] LABS: Glucose Point of Care 266 mg/dL (70-110)
--- NOTE | 2024-06-24 16:11 | P.PN_ITS ---
Subjective 2 Subjective: Patient was seen this morning, denies any fevers, chills, no cough no bloody or black stools, we discussed his anemia hemoglobin 6.4, he tells me that he has had EGD and colonoscopies in the past which have been normal in the past, he has also had a capsule endoscopy which has been normal, but he has not had any these procedures in some period of time, does report generalized weakness, fatigue, we discussed that his iron levels are reasonable his ferritin is 449 iron 41, discussed transfusion of 1 unit PRBC monitor his hemoglobin consult general surgery for consideration of EGD colonoscopy, discussed risk and benefits, he voiced understanding walkers answered, agreed to proceed, he is agreeable, spoke to general surgery, start bowel prep today, plan for EGD colonoscopy tomorrow Vitals/I&O/Wt Last Vital Signs Temp 98.3 F 06/24/24 15:42 Pulse 72 06/24/24 15:53 Resp 16 06/24/24 15:53 BP 188/82 06/24/24 15:42 Pulse Ox 95 06/24/24 15:53 O2 Del Method Nasal Cannula 06/24/24 15:53 O2 Flow Rate 4 06/24/24 15:53 06/24/24 06/24/24 06/24/24 06:59 14:59 22:59 Intake Total 360 / 2070 600 / 600 0 / 600 Output Total 100 / 100 Balance 360 / 1420 500 / 500 0 / 500 Weight last 48 hrs Weight 174.633 kg Weight 174.996 kg Weight 163.293 kg Physical Exam 2 Const: COMMON NORMALS: no acute distress and patient oriented x3 Resp: COMMON NORMALS: normal respiratory effort, No retractions, No use of accessory muscles and clear to auscultation bilaterally AUSCULTATION: clear to auscultation bilaterally Cardio: COMMON NORMALS: regular rate, regular rhythm, S1 normal heart sound present and S2 normal heart sound present RATE: regular rate RHYTHM: r egular rhythm HEART SOUNDS: S1 normal heart sound present and S2 normal heart sound present GI: COMMON NORMALS: Normal to inspection, nondistended, normoactive bowel sounds present and non-tender Extremity: COMMON NORMALS: no pedal edema Neuro: COMMON NORMALS: patient oriented x3 Psych: COMMON NORMALS: mental status grossly normal Data 06/24/24 10:15 06/24/24 06:14 Micro: Microbiology 06/23/24 15:42 Blood Culture - Preliminary Blood NEGATIVE TO DATE 06/23/24 15:50 Blood Culture - Preliminary Blood Staphylococcus epidermidis A&P Assessment and plan (1) Pneumonia: (2) Generalized weakness: (3) HTN (hypertension): (4) Heart failure with preserved ejection fraction: (5) Atrial fibrillation: (6) Diabetes mellitus type 2, uncontrolled, with complications: (7) Acute anemia: (8) Staphylococcus epidermidis bacteremia: Plan Acute anemia -Hemoglobin 6.4 -Transfuse 1 unit PRBC -Protonix, Carafate -Ferritin 449, iron 41, will hold off on IV Venofer infusion, monitor Generalized weakness ? UA p no UTI ? Likely component of acute anemia ? Protonix 40 IV twice daily, Carafate # Possible component of pneumonia seen on chest x-ray Pneumonia seen on chest x-ray ? blood cultures, ? Rocephin ? Azithromycin Type 2 diabetes mellitus Lantus 10 units twice daily low-dose sliding scale Bilateral lower extremity edema ? Continue home Bumex Staphylococcus epidermidis bacteremia -Seen in 1 of 2 blood cultures -Likely contamination -However we will repeat blood cultures -Start vancomycin for now PT OT ? Lovenox for DVT prophylaxis Attestations 2 Medical Necessity Statement*: Patient requires hospitalization for acute anemia, generalized weakness, Staphylococcus epidermidis bacteremia Diagnoses Pneumonia J18.9 Generalized weakness R53.1 HTN (hypertension) I10 Heart failure with preserved ejection fraction I50.30 Atrial fibrillation I48.91 Diabetes mellitus type 2, uncontrolled, with complications Acute anemia D64.9 Staphylococcus epidermidis bacteremia R78.81; B95.7
--- NOTE | 2024-06-24 16:11 | PHA.VACGOAL ---
Vancomycin Goal - Goal Vancomycin Goal:: 15-20 mg/L Vancomycin Indication:: Pneumonia - Therapy Day of therpy:: Day []of [] . Actual body weight (kg): 385 lb - Data Labs: WBC 10.00 10^3/uL (3.29-11.43) 06/24/24 06:14 RBC 2.37 10^6/uL (3.85-5.65) L 06/24/24 06:14 Hgb 6.40 g/dL (11.27-16.99) L* 06/24/24 10:15 Hct 21.5 % (37-53) L 06/24/24 10:15 MCV 95.8 fl (82-101) 06/24/24 06:14 MCH 28.3 pg (27-33) 06/24/24 06:14 MCHC 29.5 g/dL (30-55) L 06/24/24 06:14 RDW 13.6 % (12.1-15.1) 06/24/24 06:14 Sodium 135 mmol/L (136-145) L 06/24/24 06:14 Potassium 4.4 mmol/L (3.5-5.1) 06/24/24 06:14 Chloride 99 mmol/L (98-107) 06/24/24 06:14 Carbon Dioxide 23 mmol/L (22-29) 06/24/24 06:14 Anion Gap 17.4 (5-19) 06/24/24 06:14 BUN 62 mg/dL (8-23) H 06/24/24 06:14 Creatinine 2.7 mg/dL (0.7-1.2) H 06/24/24 06:14 GFR Calculation 23.6 mL/min (90-130) L 06/24/24 06:14 Treatment plan:: new consult Regimen:: 3000 MG LOAD 1000 MG Q12H MAINT
[2024-06-24] MEDS: cefTRIAXone 1,000 mg SDV 1000 MG IVP (16:43)
[2024-06-24] MEDS: vancomycin 3,000 MG/600 ML PIGGYBACK 200 MG IV (16:49)
[2024-06-24] MEDS: atorvastatin 40 mg Tablet PO (17:57)
--- NOTE | 2024-06-24 18:22 | PC.NURSE ---
Shift summary: Pt rested in bed throughout shift. He did rest with his CPAP mask on briefly this afternoon. Otherwise he used 4lpm/NC, his home O2 amount. His HGB low, 6.7 then 6.4 One unit of PRBCs transfused. He remains on bedrest due to Hgb. He has an enormous appetite. He eats everything offered. His fluid intact is high too. He is scheduled for EGD/colonoscopy tomorrow. Bowel prep has started. He has clear liquid diet until 1000 tomorrow. He is incontinent of urine, he cannot be quick enough with the urinal. His perineal area is very excoriated. He stated he wears depends at home and when they get wet they chafe him. Blood sugars have been 266-396 this shift.
[2024-06-24] MEDS: tamsulosin 0.4 mg Capsule PO (18:41)
[2024-06-24] MEDS: trazodone 150 mg Tablet PO (20:26)
[2024-06-24 20:48] LABS: Glucose Point of Care 208 mg/dL (70-110)
--- NOTE | 2024-06-24 21:10 | PM.CONSULT ---
Providers/Reason For Consult Consulting Physician/Specialty*: Dr. Jairo Root, DO Reason for Consult*: Iron deficiency anemia Attending Physician: Kiran Quinones MD Primary Care Provider: Rachel Bills MD History of Present Illness History of Present Illness Juan Thomas is a 68 year old male who presented to the hospital due to generalized weakness. He reports that he did have a fall about a month ago and slightly hit his head but does not have any pain related to it and did not lose consciousness. He has iron deficiency anemia for which she takes iron supplementation orally. He reports that his stools are always black because of the iron so he is unsure if he has any melena. He was found to have a significant drop in his hemoglobin levels and general surgery was consulted for endoscopy. He denies any abdominal pain, nausea, emesis. Review of Systems General: Reports: 10 or more systems reviewed and unremarkable except in HPI and below Medications/Allergies Home Medications Medication Instructions Recorded Confirmed Last Taken Type clonazepam 1 mg tablet 0.5 mg PO BEDTIME PRN Sleep 08/07/21 06/23/24 06/22/24 History sertraline 100 mg tablet 100 mg PO QAM 08/07/21 06/23/24 06/22/24 History levocetirizine 5 mg tablet 5 mg PO QAM 02/16/22 06/23/24 06/22/24 History levothyroxine 25 mcg tablet 25 mcg PO QAM 02/16/22 06/23/24 06/22/24 History simvastatin 10 mg tablet 10 mg PO QPM 12/16/23 06/23/24 06/22/24 History tamsulosin 0.4 mg capsule 0.4 mg PO QPM 12/16/23 06/23/24 06/22/24 History ipratropium 0.5 mg-albuterol 3 mg 3 ml inhalation Q6H PRN Shortness 12/19/23 06/23/24 01/24/24 Rx (2.5 mg base)/3 mL nebulization Of Breath #280 mL soln isosorbide mononitrate 30 mg 30 mg PO BID #60 tabs 12/19/23 06/23/24 06/22/24 Rx tablet,extended release 24 hr pantoprazole 40 mg tablet,delayed 40 mg PO BID #60 tabs 12/19/23 06/23/24 06/22/24 Rx release pramipexole 0.25 mg tablet 0.25 mg PO TID PRN Restless Leg 12/19/23 06/23/24 06/22/24 Rx Syndrome #90 tabs amlodipine 10 mg tablet 10 mg PO QAM 05/19/24 06/23/24 06/22/24 History gabapentin 300 mg capsule 300 mg PO TID 05/19/24 06/23/24 06/22/24 History omeprazole 20 mg capsule,delayed 20 mg PO QAM 05/19/24 06/23/24 06/22/24 History release bumetanide 1 mg tablet 1.5 mg (1.5 x 1 mg) PO BID #60 tabs 05/22/24 06/23/24 06/22/24 Rx insulin glargine 100 unit/mL (3 16 unit (0.16 mL) SUBCUT BID #10 mL 05/22/24 06/23/24 06/22/24 Rx mL) subcutaneous pen (Lantus Solostar U-100 Insulin) metoprolol tartrate 25 mg tablet 25 mg PO BID@0900,2100 #120 tabs 05/22/24 06/23/24 06/22/24 Rx ferrous sulfate 325 mg (65 mg 325 mg PO BID 06/23/24 06/23/24 06/22/24 History iron) tablet hydralazine 100 mg tablet 100 mg PO TID 06/23/24 06/23/24 06/22/24 History patiromer calcium sorbitex 8.4 8.4 g PO .QOD 06/23/24 06/23/24 06/21/24 History gram oral powder packet (Velt[place]) trazodone 150 mg tablet 150 mg PO BEDTIME 06/23/24 06/23/24 06/22/24 History Allergies Allergy/AdvReac Type Severity Reaction Status Date / Time No Known Allergies Allergy Verified 05/18/24 22:52 Current Medications Generic Name Dose Route Start Last Admin Trade Name Freq PRN Reason Stop Dose Admin Albuterol/Ipratropium 3 ml 06/23/24 20:00 06/24/24 19:48 Ipratropium-Albuterol 3 Ml Neb INHALATION 3 ml QID.RESPIRATORY ARMANDO Administration Amlodipine Besylate 10 mg 06/24/24 06:00 06/24/24 06:11 Amlodipine 10 Mg Tablet PO 10 mg QAM ARMANDO Administration Atorvastatin Calcium 40 mg 06/23/24 18:00 06/24/24 17:57 Atorvastatin 40 Mg Tablet PO 40 mg QPM ARMANDO Administration Bisacodyl 10 mg 06/24/24 11:45 06/24/24 15:13 Bisacodyl 5 Mg Tablet PO 10 mg Q12H ARMANDO Administration Bumetanide 1.5 mg 06/23/24 18:00 06/24/24 17:57 Bumetanide 1 Mg Tablet PO 1.5 mg BID ARMANDO Administration Ceftriaxone Sodium 1,000 mg 06/23/24 16:42 06/24/24 16:43 Ceftriaxone 1,000 Mg Sdv IVP 1,000 mg Q24H [facility] Administration Protocol Gabapentin 300 mg 06/23/24 16:42 06/24/24 20:25 Gabapentin 300 Mg Capsule PO 300 mg TID ARMANDO Administration Hydralazine HCl 100 mg 06/23/24 21:00 06/24/24 20:25 Hydralazine 50 Mg Tablet PO 100 mg TID ARMANDO Administration Insulin Glargine 10 unit 06/23/24 18:00 06/24/24 17:57 Insulin Glargine 100 Units/1 Ml SUBCUT 10 unit BID ARMANDO Administration Insulin Human Lispro 0 unit 06/23/24 18:00 06/24/24 17:57 Insulin Lispro 100 Unit/1 Ml SUBCUT 8 unit TIDWM [facility] Administration Protocol Isosorbide Mononitrate 30 mg 06/23/24 18:00 06/24/24 17:58 Isosorbide Mononitrate Er 30 Mg Tablet PO 30 mg BID ARMANDO Administration Levothyroxine Sodium 25 mcg 06/24/24 06:00 06/24/24 06:11 Levothyroxine 25 Mcg Tablet PO 25 mcg QAM [facility] Administration Metoprolol Tartrate 25 mg 06/23/24 21:00 06/24/24 20:25 Metoprolol Tartrate 25 Mg Tablet PO 25 mg BID@0900,2100 [facility] Administration Nystatin 1 applic 06/23/24 20:45 06/24/24 17:57 Nystatin Cream 30 Gm TOPICAL 1 applic BID [facility] Administration Pantoprazole Sodium 40 mg 06/23/24 16:42 06/24/24 16:46 Pantoprazole 40 Mg Sdv IVP 40 mg Q12H ARMANDO Administration Pramipexole Dihydrochloride 0.25 mg 06/23/24 16:42 06/24/24 15:11 Pramipexole 0.25 Mg Tablet PO 0.25 mg TID PRN Administration Restless Leg Syndrome Sertraline HCl 100 mg 06/24/24 06:00 06/24/24 06:10 Sertraline 100 Mg Tablet PO 100 mg QAM ARMANDO Administration Sodium Chloride 50 ml 06/24/24 08:51 06/24/24 11:54 Sodium Chloride 0.9% 100 Ml Bag IV 06/25/24 08:52 50 ml PRN PRN Administration Blood transfusion prime and flush Sucralfate 1 gm 06/23/24 17:00 06/24/24 16:42 Sucralfate 1 Gm Tablet PO 1 gm BIDAC ARMANDO Administration Tamsulosin HCl 0.4 mg 06/23/24 18:00 06/24/24 18:41 Tamsulosin 0.4 Mg Capsule PO 0.4 mg QPM ARMANDO Administration Trazodone HCl 150 mg 06/23/24 21:00 06/24/24 20:26 Trazodone 150 Mg Tablet PO 150 mg BEDTIME ARMANDO Administration PFSH Acute PFSH: Medical History Pneumonia Anemia Acute hyperkalemia Hypotension Hypochromic microcytic anemia Anxiety and depression Normocytic anemia Heart failure Atrial flutter Respiratory failure Iron deficiency anemia Brain aneurysm Necrotizing fasciitis of shoulder region Diabetes Surgical History Status post colonoscopy (10/18/21) H/O esophagogastroduodenoscopy (10/18/21) History of shoulder surgery Family History Grandfather Clotting disorder Family/Other CAD (coronary artery disease) Cancer Diabetes Stroke Grandmother CAD (coronary artery disease) Dementia Father Cancer Lung disease Mother Cancer Denies family history of Chronic kidney disease (CKD) Suicide Anesthesia complication Bleeding disorder Social History Smoking and tobacco/nicotine status: current every day tobacco/nicotine user (1 ppd, smoked x 50 years) cigarettes Packs smoked per day: 2 Years cigarettes smoked: 50 [ Other cigarette details: started at age 16] Alcohol intake: never Substance/Drug Use: never Vitals/I&O/Wt Last Vital Signs Temp 98.6 F 06/24/24 19:57 Pulse 72 06/24/24 19:57 Resp 20 H 06/24/24 19:57 BP 191/76 06/24/24 19:57 Pulse Ox 90 06/24/24 19:57 O2 Del Method Nasal Cannula 06/24/24 19:57 O2 Flow Rate 4 06/24/24 19:57 06/24/24 06/24/24 06/24/24 06:59 14:59 22:59 Intake Total 360 / 2070 600 / 600 840 / 1440 Output Total 100 / 100 Balance 360 / 1420 500 / 500 840 / 1340 Weight last 48 hrs Weight 385 lb Weight 385 lb 12.8 oz Weight 360 lb Physical Exam Narrative: General : Patient is well developed , no acute distress, oriented x3 Head : Normal cephalic, a-traumatic. Ears : Pinnae and external canal are normal. Hearing is normal. Eyes : PERRLA, Sclera and injection are normal. No conjunctival discharge. Nose : Mucous membranes are without erythema. Throat : buccal mucosa is normal, gums are without significant recession or hypertrophy. Lungs : Equal chest rise bilaterally, no use of accessory muscles, trachea is midline. Cor : Rate and rhythm are normal. Abdomen : Soft, ND, NT, no g/r/m Extremities : No edema, no cyanosis or clubbing, dorsalis pedis pulses are present bilaterally, non-tender to palpation of calves. Upper extremities are normal bilaterally. Back : non-tender to palpation, no CVA tenderness. Neuro : CN II - XII intact, Upper and lower extremities have equal and full strength Data 06/25/24 05:48 06/25/24 05:48 Micro: Microbiology 06/24/24 16:52 Blood Culture - Preliminary Blood SPECIMEN COLLECTED 06/24/24 16:47 Blood Culture - Preliminary Blood SPECIMEN COLLECTED 06/23/24 15:42 Blood Culture - Preliminary Blood NEGATIVE TO DATE 06/23/24 15:50 Blood Culture - Preliminary Blood Staphylococcus epidermidis A&P Assessment and plan (1) Iron deficiency anemia: Plan Bowel Prep EGD and Colonoscopy tomorrow The risks and benefits of the procedure, including bleeding, infection, intestinal perforation requiring surgery, missed lesion were explained to the patient. The patient is understanding of the risks and wishes to proceed. Medical management per primary Coding Level of Care Code 83806 Diagnoses Iron deficiency anemia D50.9
[2024-06-24] MEDS: magnesium citrate Btl 296 mL 150 ML PO (21:42)
[2024-06-25] VITALS (22 sets, daily range): BP systolic 111–191; BP diastolic 40–98; PULSE 62–82; RESP 15–20; TEMP 36.1–37.1; O2SAT 88–98
[2024-06-25] MEDS: pantoprazole 40 mg SDV IVP ×2 (05:25→17:47)
[2024-06-25] MEDS: VANCOMYCIN ADD-Vantage 1,000 MG in 0.9% NaCl ADD-Vantage 250 ML 250 MG IV ×2 (05:26→17:48)
[2024-06-25 06:02] LABS: Basophils # 0.1 10^3/uL (0.0-0.1); Basophils % 0.5 %; Eosinophils # 0.2 10^3/uL (0.0-0.8); Eosinophils % 2.1 %; Hematocrit 24.5 % (37-53); Lymphocytes # 1.1 10^3/uL (0.8-4.8); Lymphocytes % 9.8 %; Mean Corpuscular HGB Conc 29.8 g/dL (30-55); Mean Corpuscular Hemoglobin 28.2 pg (27-33); Mean Corpuscular Volume 94.6 fl (82-101); Monocytes # 0.9 10^3/uL (0.2-0.9); Monocytes % 8.2 %; Neutrophils # 8.47 10^3/uL (1.8-7.7); Neutrophils % 78.7 %; Nucleated Red Blood Cells % 0 %; Platelet Count 164 10^3/cmm (157-399); Red Blood Count 2.59 10^6/uL (3.85-5.65); Red Cell Distribution Width 14.4 % (12.1-15.1); White Blood Count 10.76 10^3/uL (3.29-11.43)
[2024-06-25 06:06] LABS: Glucose Point of Care 205 mg/dL (70-110)
[2024-06-25] MEDS: levothyroxine 25 mcg Tablet PO (06:17)
[2024-06-25] MEDS: sucralfate 1 gm Tablet PO (06:17)
[2024-06-25] MEDS: sertraline 100 mg Tablet PO (06:17)
[2024-06-25] MEDS: amlodipine 10 mg Tablet PO (06:17)
[2024-06-25 06:24] LABS: Alanine Aminotransferase 12 U/L (0-41); Albumin Level 3.2 g/dL (3.5-5.2); Alkaline Phosphatase 146 U/L (40-130); Anion Gap 18.5 (5-19); Aspartate Amino Transferase 22 U/L (0-40); Blood Urea Nitrogen 67 mg/dL (8-23); Calcium 8.5 mg/dL (8.5-10.5); Carbon Dioxide 22 mmol/L (22-29); Chloride 101 mmol/L (98-107); Creatinine Clr Calc Pharmacy 40.6559; Globulin 3.5 g/dL (1.3-4.6); Glomerular Filtration Rate 21.7 mL/min (90-130); Glucose 194 mg/dL (65-115); Osmolality Calculated 309 mOsm/kg (285-295); Phosphorus 4.2 mg/dL (2.5-4.5); Potassium 4.5 mmol/L (3.5-5.1); Sodium 137 mmol/L (136-145); Total Bilirubin 0.2 mg/dL (0.15-1.2); Total Protein 6.7 g/dL (6.6-8.7)
[2024-06-25] MEDS: ipratropium-albuterol 3 mL Neb INHALATION ×3 (08:26→20:19)
[2024-06-25] MEDS: bumetanide 1 mg Tablet 1.5 MG PO ×2 (08:44→17:48)
[2024-06-25] MEDS: hyDRALAzine 50 mg Tablet 100 MG PO ×2 (08:45→21:20)
[2024-06-25] MEDS: gabapentin 300 mg Capsule PO ×2 (08:45→21:20)
[2024-06-25] MEDS: metoprolol tartrate 25 mg Tablet PO ×2 (08:45→23:29)
[2024-06-25] MEDS: insulin glargine 100 units/1 mL 10 UNIT SUBCUT (08:45)
[2024-06-25] MEDS: isosorbide mononitrate ER 30 mg Tablet PO ×2 (08:45→17:49)
[2024-06-25] MEDS: insulin lispro 100 unit/1 mL SUBCUT ×2 (08:46→12:42)
[2024-06-25] MEDS: nystatin cream 30 gm 1 APPLIC TOPICAL ×2 (08:50→17:56)
[2024-06-25 12:14] LABS: Glucose Point of Care 206 mg/dL (70-110)
--- NOTE | 2024-06-25 12:26 | P.PN_ITS ---
Vitals/I&O/Wt Last Vital Signs Temp 97.7 F 06/25/24 11:54 Pulse 64 06/25/24 11:54 Resp 17 06/25/24 11:54 BP 140/49 06/25/24 11:54 Pulse Ox 94 06/25/24 11:54 O2 Del Method Nasal Cannula 06/25/24 11:54 O2 Flow Rate 4 06/25/24 11:11 06/24/24 06/25/24 06/25/24 22:59 06:59 14:59 Intake Total 1200 / 1800 250 / 250 Output Total 200 / 300 300 / 600 Balance 1000 / 1500 -300 / 1200 250 / 250 Weight last 48 hrs Weight 385 lb 9.6 oz Weight 385 lb Weight 385 lb 12.8 oz Data 06/25/24 05:48 06/25/24 05:48 Micro: Microbiology 06/24/24 16:52 Blood Culture - Preliminary Blood SPECIMEN COLLECTED 06/24/24 16:47 Blood Culture - Preliminary Blood SPECIMEN COLLECTED 06/23/24 15:42 Blood Culture - Preliminary Blood NEGATIVE TO DATE 06/23/24 15:50 Blood Culture - Preliminary Blood Staphylococcus epidermidis A&P Assessment and plan (1) Iron deficiency anemia: Plan EGD and Colonoscopy The risks and benefits of the procedure, including bleeding, infection, intestinal perforation requiring surgery, missed lesion were explained to the patient. The patient is understanding of the risks and wishes to proceed. Medical management per primary Attestations 2 Medical Necessity Statement*: per primary Coding Level of Care Code Acute Code for Chg Fwd Diagnoses Iron deficiency anemia D50.9
[2024-06-25] MEDS: sodium chloride 0.9% 500 ML 15 ML IV (14:29)
--- NOTE | 2024-06-25 14:41 | ANES.PREANE2 ---
Pre-Anesthetic Assessment Height/Weight: Height 1.85 m Weight 174.905 kg Temp Pulse Resp BP Pulse Ox O2 Del Method O2 Flow Rate 97.3 F L 69 20 H 185/68 97 Nasal Cannula 4 06/25/24 14:14 06/25/24 14:14 06/25/24 14:14 06/25/24 14:14 06/25/24 14:14 06/25/24 14:14 06/25/24 14:14 Operation Date: 06/25/24 14:15 Proposed Procedures p EGD(Not Applicable) - Jairo Root DO s Colonoscopy(Not Applicable) - Jairo Root DO Familial anesthetic complications: none Was Beta Mary Beth taken within 24 hours: Yes Was Clonidine taken within 24 hours: N/A Last intake: Intake Last Liquid Date 06/25/24 Last Liquid Time 23:00 Last Solid Date 06/24/24 Last Solid Time 23:00 Social Tobacco (1ppd) and No alcohol Exam alert and oriented x 3 Airway Submandibular: within normal limits Cervical ROM: within normal limits Mallampati: Class II Dentition: false Comments: Comments: large falcon Pulmonary Chronic Obstructive Pulmonary Disease, Exertional Dyspnea and Othopnea on 4lNC at all times CV/HEM Hypertension pt states he has chronic AB kidney insufficiency. Hepatic None reported GI Gastroesophageal Reflux Disease (well controlled on meds) Metabolic Diabetes Mellitus, Hyperlipidemia and Morbid Obesity Musc/skel Osteoarthritis/DJD and Weakness walks with walker at home Neuropsych None reported Anesthetic Plan ASA status: 3 Anesthesia: Anesthesia Evaluation and MAC Risk of > 500 ml blood loss (7ml/kg in children): No Medications/Allergies Home Medications Medication Instructions Recorded Confirmed Last Taken Type clonazepam 1 mg tablet 0.5 mg PO BEDTIME PRN Sleep 08/07/21 06/23/24 06/22/24 History sertraline 100 mg tablet 100 mg PO QAM 08/07/21 06/23/24 06/22/24 History levocetirizine 5 mg tablet 5 mg PO QAM 02/16/22 06/23/24 06/22/24 History levothyroxine 25 mcg tablet 25 mcg PO QAM 02/16/22 06/23/24 06/22/24 History simvastatin 10 mg tablet 10 mg PO QPM 12/16/23 06/23/24 06/22/24 History tamsulosin 0.4 mg capsule 0.4 mg PO QPM 12/16/23 06/23/24 06/22/24 History ipratropium 0.5 mg-albuterol 3 mg 3 ml inhalation Q6H PRN Shortness 12/19/23 06/23/24 01/24/24 Rx (2.5 mg base)/3 mL nebulization Of Breath #280 mL soln isosorbide mononitrate 30 mg 30 mg PO BID #60 tabs 12/19/23 06/23/24 06/22/24 Rx tablet,extended release 24 hr pantoprazole 40 mg tablet,delayed 40 mg PO BID #60 tabs 12/19/23 06/23/24 06/22/24 Rx release pramipexole 0.25 mg tablet 0.25 mg PO TID PRN Restless Leg 12/19/23 06/23/24 06/22/24 Rx Syndrome #90 tabs amlodipine 10 mg tablet 10 mg PO QAM 05/19/24 06/23/24 06/22/24 History gabapentin 300 mg capsule 300 mg PO TID 05/19/24 06/23/24 06/22/24 History omeprazole 20 mg capsule,delayed 20 mg PO QAM 05/19/24 06/23/24 06/22/24 History release bumetanide 1 mg tablet 1.5 mg (1.5 x 1 mg) PO BID #60 tabs 05/22/24 06/23/24 06/22/24 Rx insulin glargine 100 unit/mL (3 16 unit (0.16 mL) SUBCUT BID #10 mL 05/22/24 06/23/24 06/22/24 Rx mL) subcutaneous pen (Lantus Solostar U-100 Insulin) metoprolol tartrate 25 mg tablet 25 mg PO BID@0900,2100 #120 tabs 05/22/24 06/23/24 06/22/24 Rx ferrous sulfate 325 mg (65 mg 325 mg PO BID 06/23/24 06/23/24 06/22/24 History iron) tablet hydralazine 100 mg tablet 100 mg PO TID 06/23/24 06/23/24 06/22/24 History patiromer calcium sorbitex 8.4 8.4 g PO .QOD 06/23/24 06/23/24 06/21/24 History gram oral powder packet (Veltanicanora) trazodone 150 mg tablet 150 mg PO BEDTIME 06/23/24 06/23/24 06/22/24 History Allergies Allergy/AdvReac Type Severity Reaction Status Date / Time No Known Allergies Allergy Verified 05/18/24 22:52 Current Medications Generic Name Dose Route Start Last Admin Trade Name Freq PRN Reason Stop Dose Admin Albuterol/Ipratropium 3 ml 06/23/24 20:00 06/25/24 11:10 Ipratropium-Albuterol 3 Ml Neb INHALATION 3 ml QID.RESPIRATORY ARMANDO Administration Amlodipine Besylate 10 mg 06/24/24 06:00 06/25/24 06:17 Amlodipine 10 Mg Tablet PO 10 mg QAM ARMANDO Administration Atorvastatin Calcium 40 mg 06/23/24 18:00 06/24/24 17:57 Atorvastatin 40 Mg Tablet PO 40 mg QPM ARMANDO Administration Bisacodyl 10 mg 06/24/24 11:45 06/25/24 12:07 Bisacodyl 5 Mg Tablet PO Not Given Q12H ARMANDO Bumetanide 1.5 mg 06/23/24 18:00 06/25/24 08:44 Bumetanide 1 Mg Tablet PO 1.5 mg BID ARMANDO Administration Ceftriaxone Sodium 1,000 mg 06/23/24 16:42 06/24/24 16:43 Ceftriaxone 1,000 Mg Sdv IVP 1,000 mg Q24H ARMANDO Administration Protocol Gabapentin 300 mg 06/23/24 16:42 06/25/24 08:45 Gabapentin 300 Mg Capsule PO 300 mg TID ARMANDO Administration Hydralazine HCl 100 mg 06/23/24 21:00 06/25/24 08:45 Hydralazine 50 Mg Tablet PO 100 mg TID ARMANDO Administration Vancomycin HCl 1,000 mg/ 250 mls @ 250 mls/hr 06/25/24 04:30 06/25/24 08:43 Sodium Chloride IV Infused Q12H ARMANDO Infusion Sodium Chloride 500 mls @ 15 mls/hr 06/25/24 14:11 06/25/24 14:29 Sodium Chloride 0.9% IV 06/26/24 14:10 15 mls/hr .Q24H PRN Administration COLONOSCOPY FLUIDS Insulin Glargine 10 unit 06/23/24 18:00 06/25/24 08:45 Insulin Glargine 100 Units/1 Ml SUBCUT 10 unit BID ARMANDO Administration Insulin Human Lispro 0 unit 06/23/24 18:00 06/25/24 12:42 Insulin Lispro 100 Unit/1 Ml SUBCUT 4 unit TIDWM ARMANDO Administration Protocol Isosorbide Mononitrate 30 mg 06/23/24 18:00 06/25/24 08:45 Isosorbide Mononitrate Er 30 Mg Tablet PO 30 mg BID ARMANDO Administration Levothyroxine Sodium 25 mcg 06/24/24 06:00 06/25/24 06:17 Levothyroxine 25 Mcg Tablet PO 25 mcg QAM ARMANDO Administration Metoprolol Tartrate 25 mg 06/23/24 21:00 06/25/24 08:45 Metoprolol Tartrate 25 Mg Tablet PO 25 mg BID@0900,2100 ARMANDO Administration Nystatin 1 applic 06/23/24 20:45 06/25/24 08:50 Nystatin Cream 30 Gm TOPICAL 1 applic BID ARMANDO Administration Pantoprazole Sodium 40 mg 06/23/24 16:42 06/25/24 05:25 Pantoprazole 40 Mg Sdv IVP 40 mg Q12H ARMANDO Administration Pramipexole Dihydrochloride 0.25 mg 06/23/24 16:42 06/24/24 15:11 Pramipexole 0.25 Mg Tablet PO 0.25 mg TID PRN Administration Restless Leg Syndrome Sertraline HCl 100 mg 06/24/24 06:00 06/25/24 06:17 Sertraline 100 Mg Tablet PO 100 mg QAM ARMANDO Administration Sucralfate 1 gm 06/23/24 17:00 06/25/24 06:17 Sucralfate 1 Gm Tablet PO 1 gm BIDAC ARMANDO Administration Tamsulosin HCl 0.4 mg 06/23/24 18:00 06/24/24 18:41 Tamsulosin 0.4 Mg Capsule PO 0.4 mg QPM ARMANDO Administration Trazodone HCl 150 mg 06/23/24 21:00 06/24/24 20:26 Trazodone 150 Mg Tablet PO 150 mg BEDTIME ARMANDO Administration PFSH Anesthesia Medical History Pneumonia Anemia Acute hyperkalemia Hypotension Hypochromic microcytic anemia Anxiety and depression Normocytic anemia Heart failure Atrial flutter Respiratory failure Iron deficiency anemia Brain aneurysm Necrotizing fasciitis of shoulder region Diabetes Surgical History Status post colonoscopy (10/18/21) H/O esophagogastroduodenoscopy (10/18/21) History of shoulder surgery Family History Grandfather Clotting disorder Family/Other CAD (coronary artery disease) Cancer Diabetes Stroke Grandmother CAD (coronary artery disease) Dementia Father Cancer Lung disease Mother Cancer Denies family history of Chronic kidney disease (CKD) Suicide Anesthesia complication Bleeding disorder Social History Smoking and tobacco/nicotine status: current every day tobacco/nicotine user (1 ppd, smoked x 50 years) cigarettes Packs smoked per day: 2 Years cigarettes smoked: 50 [ Other cigarette details: started at age 16] Alcohol intake: never Substance/Drug Use: never Data Anesthesia 06/25/24 05:48 06/25/24 05:48 Short CBC 06/23/24 06/23/24 06/24/24 Range/Units 18:28 21:58 02:20 WBC (3.29-11.43) 10^3/uL Hgb 6.80 L 6.60 L 6.60 L (11.27-16.99) g/dL Hct 22.4 L 22.0 L 22.4 L (37-53) % MCV (82-101) fl Plt Count (157-399) 10^3/cmm Neut % (Auto) % Neut # (Auto) (1.8-7.7) 10^3/uL 06/24/24 06/24/24 06/24/24 Range/Units 06:14 10:15 18:30 WBC 10.00 (3.29-11.43) 10^3/uL Hgb 6.70 L 6.40 L* 6.90 L (11.27-16.99) g/dL Hct 22.7 L 21.5 L 23.0 L (37-53) % MCV 95.8 (82-101) fl Plt Count 170 (157-399) 10^3/cmm Neut % (Auto) 75.2 % Neut # (Auto) 7.52 (1.8-7.7) 10^3/uL 06/25/24 Range/Units 05:48 WBC 10.76 (3.29-11.43) 10^3/uL Hgb 7.30 L (11.27-16.99) g/dL Hct 24.5 L (37-53) % MCV 94.6 (82-101) fl Plt Count 164 (157-399) 10^3/cmm Neut % (Auto) 78.7 % Neut # (Auto) 8.47 H (1.8-7.7) 10^3/uL BMP 06/24/24 06/25/24 06:14 05:48 Sodium 135 L 137 Potassium 4.4 4.5 Chloride 99 101 Carbon Dioxide 23 22 BUN 62 H 67 H Creatinine 2.7 H 2.9 H Glucose 257 H 194 H Calcium 8.6 8.5 Cardiac Enzymes 06/23/24 Range/Units 11:44 NT-Pro-B Natriuret Pep 3960 H (0-125) pg/mL Liver Function 06/24/24 06/25/24 Range/Units 06:14 05:48 Total Bilirubin 0.2 0.2 (0.15-1.2) mg/dL AST 12 22 (0-40) U/L ALT 9 12 (0-41) U/L Alkaline Phosphatase 134 H 146 H (40-130) U/L Albumin 3.3 L 3.2 L (3.5-5.2) g/dL Urine 06/23/24 Range/Units 16:51 Urine Color Yellow (Yellow) Urine Appearance Clear (CLEAR) Urine pH 5.0 (5-7) Ur Specific [place] 1.016 (1.005-1.030) Urine Protein 2+ A (Negative) Urine Glucose (UA) 2+ H (Normal) Urine Ketones Negative (Negative) Urine Nitrate Negative (Negative) Urine Bilirubin Negative (Negative) Ur Leukocyte Esterase Negative (Negative) Urine RBC 0-2 (0-2) /hpf Urine WBC 0-5 (0-5) /hpf Blood Bank 06/23/24 13:40 Blood Type O Negative Rho(D) Type Rh negative Antibody Screen Negative Coags 06/23/24 11:44 ESR Cancelled C-Reactive Protein 31.9 H Microbiology 06/24/24 16:52 Blood Culture - Preliminary Blood SPECIMEN COLLECTED 06/24/24 16:47 Blood Culture - Preliminary Blood SPECIMEN COLLECTED 06/23/24 15:42 Blood Culture - Preliminary Blood NEGATIVE TO DATE 06/23/24 15:50 Blood Culture - Preliminary Blood Staphylococcus epidermidis Cardiac Studies: Echocardiogram 12/16/23 Echocardiogram Limited Views 02/18/22 Sestamibi Stress Test (Cardiology) 03/01/22
--- NOTE | 2024-06-25 15:45 | PC.NURSE ---
Dr. Murphy notified patient 02 sat 88%-90% on 4L NC and BP 191/74. Ok to take patient to floor.
--- NOTE | 2024-06-25 15:57 | P.PN_ITS ---
Subjective 2 Subjective: Patient was seen this morning, does report weakness, fatigue, no nausea, no vomiting, no abdominal pain, Vitals/I&O/Wt Last Vital Signs Temp 97.0 F L 06/25/24 15:40 Pulse 69 06/25/24 15:40 Resp 18 06/25/24 15:40 BP 191/74 06/25/24 15:40 Pulse Ox 90 06/25/24 15:40 O2 Del Method Nasal Cannula 06/25/24 15:40 O2 Flow Rate 4 06/25/24 15:40 06/25/24 06/25/24 06/25/24 06:59 14:59 22:59 Intake Total 250 / 250 300 / 550 Output Total 300 / 600 Balance -300 / 1200 250 / 250 300 / 550 Weight last 48 hrs Weight 174.905 kg Weight 174.633 kg Weight 174.996 kg Physical Exam 2 Const: COMMON NORMALS: no acute distress and patient oriented x3 Resp: COMMON NORMALS: normal respiratory effort, No retractions, No use of accessory muscles and clear to auscultation bilaterally AUSCULTATION: clear to auscultation bilaterally Cardio: COMMON NORMALS: regular rate, regular rhythm, S1 normal heart sound present and S2 normal heart sound present RATE: regular rate RHYTHM: r egular rhythm HEART SOUNDS: S1 normal heart sound present and S2 normal heart sound present GI: COMMON NORMALS: Normal to inspection, nondistended, normoactive bowel sounds present and non-tender Extremity: COMMON NORMALS: no pedal edema Neuro: COMMON NORMALS: patient oriented x3 Psych: COMMON NORMALS: mental status grossly normal Data 06/25/24 05:48 06/25/24 05:48 Micro: Microbiology 06/24/24 16:52 Blood Culture - Preliminary Blood SPECIMEN COLLECTED 06/24/24 16:47 Blood Culture - Preliminary Blood SPECIMEN COLLECTED 06/23/24 15:42 Blood Culture - Preliminary Blood NEGATIVE TO DATE 06/23/24 15:50 Blood Culture - Preliminary Blood Staphylococcus epidermidis A&P Assessment and plan (1) Pneumonia: (2) Generalized weakness: (3) HTN (hypertension): (4) Heart failure with preserved ejection fraction: (5) Atrial fibrillation: (6) Diabetes mellitus type 2, uncontrolled, with complications: (7) Acute anemia: (8) Staphylococcus epidermidis bacteremia: Plan Acute anemia -Hemoglobin 7.3 -Transfuse 1 unit PRBC -Protonix, Carafate -Ferritin 449, iron 41, will hold off on IV Venofer infusion, monitor Generalized weakness ? UA p no UTI ? Likely component of acute anemia ? Protonix 40 IV twice daily, Carafate # Possible component of pneumonia seen on chest x-ray Pneumonia seen on chest x-ray ? blood cultures, ? Rocephin ? Azithromycin Type 2 diabetes mellitus Lantus 10 units twice daily low-dose sliding scale Bilateral lower extremity edema ? Continue home Bumex Staphylococcus epidermidis bacteremia -Seen in 1 of 2 blood cultures -Likely contamination -However we will repeat blood cultures -Start vancomycin for now PT OT ? Lovenox for DVT prophylaxis Patient requires hospitalization for acute anemia, requiring colonoscopy, EGD Attestations 2 Medical Necessity Statement*: Patient requires hospitalization for acute anemia, requiring EGD and colonoscopy, transfusion of PRBC, Staphylococcus epidermidis bacteremia Diagnoses Pneumonia J18.9 Generalized weakness R53.1 HTN (hypertension) I10 Heart failure with preserved ejection fraction I50.30 Atrial fibrillation I48.91 Diabetes mellitus type 2, uncontrolled, with complications Acute anemia D64.9 Staphylococcus epidermidis bacteremia R78.81; B95.7
[2024-06-25 16:34] LABS: Glucose Point of Care 173 mg/dL (70-110)
[2024-06-25] MEDS: cefTRIAXone 1,000 mg SDV 1000 MG IVP (17:47)
[2024-06-25] MEDS: tamsulosin 0.4 mg Capsule PO (17:48)
[2024-06-25] MEDS: atorvastatin 40 mg Tablet PO (17:48)
[2024-06-25 19:05] LABS: Hematocrit 24.8 % (37-53)
[2024-06-25 20:31] LABS: Glucose Point of Care 284 mg/dL (70-110)
[2024-06-25] MEDS: trazodone 150 mg Tablet PO (21:20)
[2024-06-25] MEDS: CLONazepam 1 mg Tablet 0.5 MG PO (23:34)
[2024-06-26] VITALS (16 sets, daily range): BP systolic 109–180; BP diastolic 56–92; PULSE 64–81; RESP 16–20; TEMP 36.4–37.2; O2SAT 91–98
[2024-06-26 03:44] LABS: Basophils % 0.4 %; Eosinophils # 0.3 10^3/uL (0.0-0.8); Eosinophils % 2.6 %; Hematocrit 22.7 % (37-53); Lymphocytes # 0.9 10^3/uL (0.8-4.8); Lymphocytes % 8.8 %; Mean Corpuscular HGB Conc 30.8 g/dL (30-55); Mean Corpuscular Hemoglobin 29.2 pg (27-33); Mean Corpuscular Volume 94.6 fl (82-101); Mean Platelet Volume 10.5 fL (7.4-10.4); Monocytes # 0.8 10^3/uL (0.2-0.9); Monocytes % 8.7 %; Neutrophils % 78.9 %; Nucleated Red Blood Cells % 0 %; Platelet Count 155 10^3/cmm (157-399); Red Cell Distribution Width 13.9 % (12.1-15.1); White Blood Count 9.64 10^3/uL (3.29-11.43)
[2024-06-26 04:06] LABS: Alanine Aminotransferase 12 U/L (0-41); Albumin Level 3.2 g/dL (3.5-5.2); Alkaline Phosphatase 138 U/L (40-130); Anion Gap 15.7 (5-19); Aspartate Amino Transferase 19 U/L (0-40); Blood Urea Nitrogen 69 mg/dL (8-23); Calcium 8.1 mg/dL (8.5-10.5); Carbon Dioxide 24 mmol/L (22-29); Chloride 102 mmol/L (98-107); Creatinine Clr Calc Pharmacy 38.0329; Globulin 3.2 g/dL (1.3-4.6); Glomerular Filtration Rate 20.1 mL/min (90-130); Glucose 262 mg/dL (65-115); Osmolality Calculated 313 mOsm/kg (285-295); Phosphorus 4.8 mg/dL (2.5-4.5); Potassium 4.7 mmol/L (3.5-5.1); Sodium 137 mmol/L (136-145); Total Bilirubin 0.2 mg/dL (0.15-1.2); Total Protein 6.4 g/dL (6.6-8.7)
[2024-06-26] MEDS: pantoprazole 40 mg SDV IVP ×2 (05:57→17:18)
[2024-06-26] MEDS: amlodipine 10 mg Tablet PO (05:57)
[2024-06-26] MEDS: levothyroxine 25 mcg Tablet PO (05:57)
[2024-06-26] MEDS: VANCOMYCIN ADD-Vantage 1,000 MG in 0.9% NaCl ADD-Vantage 250 ML 250 MG IV (05:57)
[2024-06-26] MEDS: sertraline 100 mg Tablet PO (05:57)
[2024-06-26 06:50] LABS: Glucose Point of Care 296 mg/dL (70-110)
[2024-06-26] MEDS: gabapentin 300 mg Capsule PO ×3 (08:50→21:40)
[2024-06-26] MEDS: hyDRALAzine 50 mg Tablet 100 MG PO ×3 (08:50→21:40)
[2024-06-26] MEDS: pramipexole 0.25 mg Tablet PO ×2 (08:50→17:20)
[2024-06-26] MEDS: metoprolol tartrate 25 mg Tablet PO ×2 (08:50→21:40)
[2024-06-26] MEDS: isosorbide mononitrate ER 30 mg Tablet PO ×2 (08:50→17:20)
[2024-06-26] MEDS: insulin lispro 100 unit/1 mL SUBCUT ×3 (08:51→17:21)
[2024-06-26] MEDS: nystatin cream 30 gm 1 APPLIC TOPICAL ×2 (08:51→17:21)
[2024-06-26] MEDS: bumetanide 1 mg Tablet 1.5 MG PO ×2 (08:51→17:20)
[2024-06-26] MEDS: insulin glargine 100 units/1 mL 10 UNIT SUBCUT ×2 (08:51→17:20)
[2024-06-26] MEDS: ipratropium-albuterol 3 mL Neb INHALATION ×4 (09:01→20:13)
[2024-06-26 09:56] LABS: Sed Rate by Modified Western 79 mm/h (< OR = 20)
[2024-06-26 11:21] LABS: Glucose Point of Care 368 mg/dL (70-110)
--- NOTE | 2024-06-26 11:53 | P.PN_ITS ---
Subjective 2 Subjective: Patient seen and examined. Tolerating diabetic diet. Denies any further hematochezia or melena Vitals/I&O/Wt Last Vital Signs Temp 98.0 F 06/26/24 08:00 Pulse 72 06/26/24 11:13 Resp 18 06/26/24 11:13 BP 169/61 06/26/24 08:00 Pulse Ox 94 06/26/24 11:13 O2 Del Method Nasal Cannula 06/26/24 11:13 O2 Flow Rate 4 06/26/24 11:13 06/25/24 06/26/24 06/26/24 22:59 06:59 14:59 Intake Total 1440 / 1690 440 / 2130 256 / 256 Output Total 400 / 400 Balance 1040 / 1290 440 / 1730 256 / 256 Weight last 48 hrs Weight 385 lb 8 oz Weight 385 lb 9.6 oz Physical Exam 2 Narrative: General: No acute distress, awake alert and oriented x 3 Abdomen: Soft, nontender, nondistended Data 06/26/24 03:24 06/26/24 03:24 Micro: Microbiology 06/24/24 16:52 Blood Culture - Preliminary Blood NEGATIVE TO DATE 06/24/24 16:47 Blood Culture - Preliminary Blood NEGATIVE TO DATE A&P Assessment and plan (1) Iron deficiency anemia: Plan Postprocedure day #1 status post EGD and Colonoscopy with polypectomy of a bleeding semipedunculated polyp just proximal to the hepatic flexure. Base was bleeding and controlled with 3 ultra clips Type diet Follow-up my office in 2 weeks to go over polyp and biopsy Medical management per primary Attestations 2 Medical Necessity Statement*: Per primary Coding Level of Care Code 13504 Diagnoses Iron deficiency anemia D50.9
--- NOTE | 2024-06-26 14:03 | PC.SOCIAL ---
IMM Updated Updated pt on IMM.. No questions voiced. Provided pt a copy. Initialed, dated, & timed a copy & placed in chart.
[2024-06-26 16:57] LABS: Glucose Point of Care 227 mg/dL (70-110)
[2024-06-26] MEDS: cefTRIAXone 1,000 mg SDV 1000 MG IVP (17:18)
[2024-06-26] MEDS: atorvastatin 40 mg Tablet PO (17:20)
[2024-06-26] MEDS: tamsulosin 0.4 mg Capsule PO (17:21)
--- NOTE | 2024-06-26 17:21 | P.PN_ITS ---
Subjective 2 Subjective: Patient was seen this morning, he is sitting up in a chair, did ambulate with physical therapy does report weakness and fatigue hemoglobin 7.0 this morning discussed colonoscopy findings, will transfuse 1 unit PRBC, monitor thereafter, he is agreeable creatinine is up to 3.1 will have to monitor urine output Vitals/I&O/Wt Last Vital Signs Temp 97.7 F 06/26/24 12:00 Pulse 78 06/26/24 16:00 Resp 20 H 06/26/24 16:00 BP 153/62 06/26/24 12:00 Pulse Ox 93 06/26/24 16:00 O2 Del Method Nasal Cannula 06/26/24 16:00 O2 Flow Rate 4 06/26/24 16:00 06/26/24 06/26/24 06/26/24 06:59 14:59 22:59 Intake Total 440 / 2130 616 / 616 Balance 440 / 1730 616 / 616 Weight last 48 hrs Weight 174.86 kg Weight 174.905 kg Physical Exam 2 Const: COMMON NORMALS: no acute distress and patient oriented x3 Resp: COMMON NORMALS: normal respiratory effort, No retractions, No use of accessory muscles and clear to auscultation bilaterally AUSCULTATION: clear to auscultation bilaterally Cardio: COMMON NORMALS: regular rate, regular rhythm, S1 normal heart sound present and S2 normal heart sound present RATE: regular rate RHYTHM: r egular rhythm HEART SOUNDS: S1 normal heart sound present and S2 normal heart sound present GI: COMMON NORMALS: Normal to inspection, nondistended, normoactive bowel sounds present and non-tender Extremity: COMMON NORMALS: no pedal edema Neuro: COMMON NORMALS: patient oriented x3 Psych: COMMON NORMALS: mental status grossly normal Data 06/26/24 03:24 06/26/24 03:24 Micro: Microbiology 06/24/24 16:52 Blood Culture - Preliminary Blood NEGATIVE TO DATE 06/24/24 16:47 Blood Culture - Preliminary Blood NEGATIVE TO DATE A&P Assessment and plan (1) Pneumonia: (2) Generalized weakness: (3) HTN (hypertension): (4) Heart failure with preserved ejection fraction: (5) Atrial fibrillation: (6) Diabetes mellitus type 2, uncontrolled, with complications: (7) Acute anemia: (8) Staphylococcus epidermidis bacteremia: Plan Acute anemia -Hemoglobin 7.0 -Transfuse 1 unit PRBC, will transfuse another unit PRBC -Protonix, Carafate -Ferritin 449, iron 41, will hold off on IV Venofer infusion, monitor -Status post colonoscopy, found to have polypectomy of bleeding semipedunculated polyp just proximal to hepatic flexure base was bleeding and controlled with 3 ultra clips -Follow-up with Dr. Root as outpatient Generalized weakness ? UA p no UTI ? Likely component of acute anemia ? Protonix 40 IV twice daily, Carafate # Possible component of pneumonia seen on chest x-ray Pneumonia seen on chest x-ray ? blood cultures, -Switch to Augmentin Type 2 diabetes mellitus Lantus 10 units twice daily low-dose sliding scale Bilateral lower extremity edema ? Continue home Bumex Staphylococcus epidermidis bacteremia -Seen in 1 of 2 blood cultures -Likely contamination -Repeat blood cultures negative -discontinue vancomycin for now MONCHO, creatinine up to 3.1 hold Bumex PT OT ? Lovenox for DVT prophylaxis on hold due to acute anemia, switch to SCDs Patient requires hospitalization for acute anemia, Attestations 2 Medical Necessity Statement*: Patient requires hospitalization, for acute anemia, generalized weakness,moncho Diagnoses Pneumonia J18.9 Generalized weakness R53.1 HTN (hypertension) I10 Heart failure with preserved ejection fraction I50.30 Atrial fibrillation I48.91 Diabetes mellitus type 2, uncontrolled, with complications Acute anemia D64.9 Staphylococcus epidermidis bacteremia R78.81; B95.7
[2024-06-26] MEDS: amoxicillin-clav 875-125 mg Tablet 1 TAB PO (18:11)
[2024-06-26 20:55] LABS: Glucose Point of Care 291 mg/dL (70-110)
[2024-06-26] MEDS: trazodone 150 mg Tablet PO (21:40)
[2024-06-27] VITALS (15 sets, daily range): BP systolic 150–189; BP diastolic 65–82; PULSE 65–79; RESP 16–20; TEMP 36.4–37.1; O2SAT 92–97
[2024-06-27] MEDS: hyDRALAzine 20 mg/mL INJ 1 mL IVP (02:11)
[2024-06-27 05:27] LABS: Basophils % 0.4 %; Eosinophils # 0.3 10^3/uL (0.0-0.8); Eosinophils % 3.4 %; Hematocrit 24.3 % (37-53); Mean Corpuscular Hemoglobin 27.9 pg (27-33); Mean Corpuscular Volume 92.7 fl (82-101); Mean Platelet Volume 10.3 fL (7.4-10.4); Monocytes # 0.9 10^3/uL (0.2-0.9); Monocytes % 9.9 %; Neutrophils % 74.7 %; Nucleated Red Blood Cells % 0 %; Platelet Count 155 10^3/cmm (157-399); Red Blood Count 2.62 10^6/uL (3.85-5.65); Red Cell Distribution Width 14.2 % (12.1-15.1); White Blood Count 9.25 10^3/uL (3.29-11.43)
[2024-06-27 05:55] LABS: Alanine Aminotransferase 9 U/L (0-41); Albumin Level 3.3 g/dL (3.5-5.2); Alkaline Phosphatase 134 U/L (40-130); Anion Gap 14.6 (5-19); Aspartate Amino Transferase 15 U/L (0-40); Blood Urea Nitrogen 68 mg/dL (8-23); Calcium 8.5 mg/dL (8.5-10.5); Carbon Dioxide 23 mmol/L (22-29); Chloride 104 mmol/L (98-107); Creatinine Clr Calc Pharmacy 42.8466; Globulin 3.3 g/dL (1.3-4.6); Glomerular Filtration Rate 22.6 mL/min (90-130); Glucose 259 mg/dL (65-115); Magnesium 2.9 mg/dL (1.7-2.3); Osmolality Calculated 313 mOsm/kg (285-295); Phosphorus 4.9 mg/dL (2.5-4.5); Potassium 4.6 mmol/L (3.5-5.1); Sodium 137 mmol/L (136-145); Total Bilirubin 0.2 mg/dL (0.15-1.2); Total Protein 6.6 g/dL (6.6-8.7)
[2024-06-27] MEDS: amlodipine 10 mg Tablet PO (06:18)
[2024-06-27] MEDS: pantoprazole 40 mg SDV IVP ×2 (06:18→17:42)
[2024-06-27] MEDS: levothyroxine 25 mcg Tablet PO (06:18)
[2024-06-27] MEDS: sertraline 100 mg Tablet PO (06:18)
[2024-06-27 06:36] LABS: Glucose Point of Care 259 mg/dL (70-110)
[2024-06-27 08:28] LABS: LAB Peripheral Smear Sent for Review
[2024-06-27] MEDS: ipratropium-albuterol 3 mL Neb INHALATION ×4 (08:35→19:41)
[2024-06-27] MEDS: hyDRALAzine 50 mg Tablet 100 MG PO ×3 (08:38→20:52)
[2024-06-27] MEDS: amoxicillin-clav 875-125 mg Tablet 1 TAB PO ×2 (08:38→17:42)
[2024-06-27] MEDS: isosorbide mononitrate ER 30 mg Tablet PO ×2 (08:39→17:42)
[2024-06-27] MEDS: pramipexole 0.25 mg Tablet PO ×2 (08:39→17:45)
[2024-06-27] MEDS: metoprolol tartrate 25 mg Tablet PO ×2 (08:39→20:52)
[2024-06-27] MEDS: insulin lispro 100 unit/1 mL SUBCUT ×3 (08:39→17:41)
[2024-06-27] MEDS: gabapentin 300 mg Capsule PO ×3 (08:39→20:52)
[2024-06-27] MEDS: insulin glargine 100 units/1 mL 10 UNIT SUBCUT ×2 (08:42→17:41)
[2024-06-27] MEDS: nystatin cream 30 gm 1 APPLIC TOPICAL ×2 (08:45→17:43)
[2024-06-27 08:51] LABS: Lactate Dehydrogenase 226 U/L (135-225)
[2024-06-27 11:18] LABS: Glucose Point of Care 302 mg/dL (70-110)
--- NOTE | 2024-06-27 12:27 | PC.NURSE ---
This nurse takes over care of this pt at this time.
--- NOTE | 2024-06-27 16:50 | P.PN_ITS ---
Vitals/I&O/Wt Last Vital Signs Temp 98.5 F 06/27/24 12:00 Pulse 77 06/27/24 15:35 Resp 16 06/27/24 15:24 BP 167/67 06/27/24 12:00 Pulse Ox 97 06/27/24 15:24 O2 Del Method Nasal Cannula 06/27/24 15:24 O2 Flow Rate 4 06/27/24 15:24 06/27/24 06/27/24 06/27/24 06:59 14:59 22:59 Intake Total 240 / 1096 0 / 0 Output Total 400 / 400 550 / 550 Balance -160 / 696 -550 / -550 Weight last 48 hrs Weight 180.076 kg Weight 174.86 kg Physical Exam 2 Const: COMMON NORMALS: no acute distress and patient oriented x3 Resp: COMMON NORMALS: normal respiratory effort, No retractions, No use of accessory muscles and clear to auscultation bilaterally AUSCULTATION: clear to auscultation bilaterally Cardio: COMMON NORMALS: regular rate, regular rhythm, S1 normal heart sound present and S2 normal heart sound present RATE: regular rate RHYTHM: r egular rhythm HEART SOUNDS: S1 normal heart sound present and S2 normal heart sound present GI: COMMON NORMALS: Normal to inspection, nondistended, normoactive bowel sounds present and non-tender Extremity: COMMON NORMALS: no pedal edema Neuro: COMMON NORMALS: patient oriented x3 Psych: COMMON NORMALS: mental status grossly normal Data 06/27/24 04:40 06/27/24 04:40 Micro: Microbiology 06/23/24 15:50 Blood Culture - Final Blood Staphylococcus epidermidis A&P Assessment and plan (1) Pneumonia: (2) Generalized weakness: (3) HTN (hypertension): (4) Heart failure with preserved ejection fraction: (5) Atrial fibrillation: (6) Diabetes mellitus type 2, uncontrolled, with complications: (7) Acute anemia: (8) Staphylococcus epidermidis bacteremia: Plan Acute anemia -Hemoglobin 7.3 -Transfused 2 unit PRBC -Will do a workup for hemolytic anemia, LDH, haptoglobin, thalassemia -MDS is a possibility likely will require bone marrow biopsy -Protonix, Carafate -Ferritin 449, iron 41, will hold off on IV Venofer infusion, monitor -History of iron deficiency anemia, has multiple EGDs and colonoscopy and capsule endoscopy -Status post colonoscopy, found to have polypectomy of bleeding semipedunculated polyp just proximal to hepatic flexure base was bleeding and controlled with 3 ultra clips -Follow-up with Dr. Root as outpatient Generalized weakness ? UA p no UTI ? Likely component of acute anemia ? Protonix 40 IV twice daily, Carafate # Possible component of pneumonia seen on chest x-ray Pneumonia seen on chest x-ray ? blood cultures, -Switch to Augmentin Type 2 diabetes mellitus Lantus 10 units twice daily Moderate dose sliding scale Bilateral lower extremity edema ? Continue home Bumex Staphylococcus epidermidis bacteremia -Seen in 1 of 2 blood cultures -Likely contamination -Repeat blood cultures negative -discontinue vancomycin for now MONCHO, creatinine up to 3.1 hold Bumex PT OT ? Lovenox for DVT prophylaxis on hold due to acute anemia, switch to SCDs Patient requires hospitalization for acute anemia, Attestations 2 Medical Necessity Statement*: Patient requires hospitalization for acute anemia, generalized weakness, hemoglobin down to 7.3 status post 2 units PRBC status post EGD, scope he Diagnoses Pneumonia J18.9 Generalized weakness R53.1 HTN (hypertension) I10 Heart failure with preserved ejection fraction I50.30 Atrial fibrillation I48.91 Diabetes mellitus type 2, uncontrolled, with complications Acute anemia D64.9 Staphylococcus epidermidis bacteremia R78.81; B95.7
[2024-06-27 16:56] LABS: Glucose Point of Care 269 mg/dL (70-110)
[2024-06-27] MEDS: bumetanide 1 mg Tablet 1.5 MG PO (17:41)
[2024-06-27] MEDS: tamsulosin 0.4 mg Capsule PO (17:42)
[2024-06-27] MEDS: atorvastatin 40 mg Tablet PO (17:42)
[2024-06-27 18:36] LABS: Reticulocyte % 3.8 % (0.5-2.0)
[2024-06-27 20:49] LABS: Glucose Point of Care 335 mg/dL (70-110)
[2024-06-27] MEDS: CLONazepam 1 mg Tablet 0.5 MG PO (20:52)
[2024-06-27] MEDS: trazodone 150 mg Tablet PO (20:52)
[2024-06-28] VITALS (10 sets, daily range): BP systolic 147–183; BP diastolic 59–92; PULSE 69–76; RESP 17–20; TEMP 36.3–36.7; O2SAT 4–95
[2024-06-28] MEDS: pantoprazole 40 mg SDV IVP ×2 (05:21→17:44)
[2024-06-28] MEDS: sertraline 100 mg Tablet PO (05:21)
[2024-06-28] MEDS: levothyroxine 25 mcg Tablet PO (05:21)
[2024-06-28] MEDS: amlodipine 10 mg Tablet PO (05:21)
[2024-06-28 06:03] LABS: Basophils % 0.4 %; Eosinophils # 0.3 10^3/uL (0.0-0.8); Eosinophils % 2.8 %; Hematocrit 24.4 % (37-53); Lymphocytes # 0.7 10^3/uL (0.8-4.8); Lymphocytes % 6.7 %; Mean Corpuscular HGB Conc 30.3 g/dL (30-55); Mean Corpuscular Volume 92.4 fl (82-101); Mean Platelet Volume 9.9 fL (7.4-10.4); Monocytes # 0.9 10^3/uL (0.2-0.9); Monocytes % 8.5 %; Neutrophils # 8.64 10^3/uL (1.8-7.7); Neutrophils % 80.9 %; Nucleated Red Blood Cells % 0 %; Platelet Count 159 10^3/cmm (157-399); Red Blood Count 2.64 10^6/uL (3.85-5.65); Red Cell Distribution Width 13.7 % (12.1-15.1); White Blood Count 10.69 10^3/uL (3.29-11.43)
[2024-06-28 06:21] LABS: Blood Urea Nitrogen 70 mg/dL (8-23); Calcium 8.3 mg/dL (8.5-10.5); Carbon Dioxide 24 mmol/L (22-29); Chloride 99 mmol/L (98-107); Glomerular Filtration Rate 21.7 mL/min (90-130); Glucose 245 mg/dL (65-115); Osmolality Calculated 307 mOsm/kg (285-295); Sodium 134 mmol/L (136-145)
[2024-06-28 06:22] LABS: Lactate Dehydrogenase 170 U/L (135-225)
[2024-06-28 06:23] LABS: Creatinine Clr Calc Pharmacy 41.1541
[2024-06-28 06:37] LABS: Glucose Point of Care 257 mg/dL (70-110)
[2024-06-28] MEDS: ipratropium-albuterol 3 mL Neb INHALATION ×4 (08:53→20:28)
[2024-06-28] MEDS: hyDRALAzine 50 mg Tablet 100 MG PO ×3 (09:16→20:09)
[2024-06-28] MEDS: pramipexole 0.25 mg Tablet PO ×2 (09:16→20:10)
[2024-06-28] MEDS: amoxicillin-clav 875-125 mg Tablet 1 TAB PO ×2 (09:17→17:44)
[2024-06-28] MEDS: gabapentin 300 mg Capsule PO ×3 (09:17→20:09)
[2024-06-28] MEDS: isosorbide mononitrate ER 30 mg Tablet PO ×2 (09:17→17:44)
[2024-06-28] MEDS: metoprolol tartrate 25 mg Tablet PO ×2 (09:17→20:09)
[2024-06-28] MEDS: bisacodyl 5 mg Tablet 10 MG PO (09:17)
[2024-06-28] MEDS: bumetanide 1 mg Tablet 1.5 MG PO ×2 (09:17→17:44)
[2024-06-28] MEDS: insulin lispro 100 unit/1 mL SUBCUT ×3 (09:18→18:43)
[2024-06-28] MEDS: insulin glargine 100 units/1 mL 10 UNIT SUBCUT ×2 (11:11→18:43)
[2024-06-28] MEDS: nystatin cream 30 gm 1 APPLIC TOPICAL (11:11)
[2024-06-28 12:37] LABS: Glucose Point of Care 279 mg/dL (70-110)
--- NOTE | 2024-06-28 15:53 | P.PN_ITS ---
Subjective 2 Subjective: Patient was seen this morning, sitting up in a chair, no fevers, no chills, no cough, no abdominal pain we discussed his persistent anemia he will eventually require bone marrow biopsy which we can set up for him to follow-up with hematology oncology as outpatient, no blood or black stools reported Vitals/I&O/Wt Last Vital Signs Temp 97.9 F 06/28/24 12:00 Pulse 73 06/28/24 15:30 Resp 18 06/28/24 15:30 BP 147/92 06/28/24 12:00 Pulse Ox 93 06/28/24 15:30 O2 Del Method Nasal Cannula 06/28/24 15:30 O2 Flow Rate 4 06/28/24 15:30 06/28/24 06/28/24 06/28/24 06:59 14:59 22:59 Intake Total 1315 / 1315 Output Total 300 / 1150 Balance -300 / -910 1315 / 1315 Weight last 48 hrs Weight 178.517 kg Weight 180.076 kg Physical Exam 2 Const: COMMON NORMALS: no acute distress and patient oriented x3 Resp: COMMON NORMALS: normal respiratory effort, No retractions, No use of accessory muscles and clear to auscultation bilaterally AUSCULTATION: clear to auscultation bilaterally Cardio: COMMON NORMALS: regular rate, regular rhythm, S1 normal heart sound present and S2 normal heart sound present RATE: regular rate RHYTHM: r egular rhythm HEART SOUNDS: S1 normal heart sound present and S2 normal heart sound present GI: COMMON NORMALS: Normal to inspection, nondistended, normoactive bowel sounds present and non-tender Extremity: COMMON NORMALS: no pedal edema Neuro: COMMON NORMALS: patient oriented x3 Psych: COMMON NORMALS: mental status grossly normal Data 06/28/24 05:47 06/28/24 05:47 Micro: Microbiology 06/23/24 15:50 Blood Culture - Final Blood Staphylococcus epidermidis A&P Assessment and plan (1) Pneumonia: (2) Generalized weakness: (3) HTN (hypertension): (4) Heart failure with preserved ejection fraction: (5) Atrial fibrillation: (6) Diabetes mellitus type 2, uncontrolled, with complications: (7) Acute anemia: (8) Staphylococcus epidermidis bacteremia: Plan Acute anemia -Hemoglobin 7.3 -Transfused 2 unit PRBC -Will do a workup for hemolytic anemia, LDH, haptoglobin, thalassemia -MDS is a possibility likely will require bone marrow biopsy -Haptoglobin 268 -LDH 170 -Peripheral smear pending -Reticulocyte count 3.8 -Protonix, Carafate -Ferritin 449, iron 41, will hold off on IV Venofer infusion, monitor -History of iron deficiency anemia, has multiple EGDs and colonoscopy and capsule endoscopy -Status post colonoscopy, found to have polypectomy of bleeding semipedunculated polyp just proximal to hepatic flexure base was bleeding and controlled with 3 ultra clips -Follow-up with Dr. Root as outpatient Generalized weakness ? UA p no UTI ? Likely component of acute anemia ? Protonix 40 IV twice daily, Carafate # Possible component of pneumonia seen on chest x-ray Pneumonia seen on chest x-ray ? blood cultures, -Switch to Augmentin Type 2 diabetes mellitus Lantus 10 units twice daily Moderate dose sliding scale Bilateral lower extremity edema ? Continue home Bumex Staphylococcus epidermidis bacteremia -Seen in 1 of 2 blood cultures -Likely contamination -Repeat blood cultures negative -discontinue vancomycin for now MONCHO, creatinine up to 3.1 hold Bumex PT OT ? Lovenox for DVT prophylaxis on hold due to acute anemia, switch to SCDs Patient requires hospitalization for acute anemia, Attestations 2 Medical Necessity Statement*: Patient requires hospitalization for acute anemia Diagnoses Pneumonia J18.9 Generalized weakness R53.1 HTN (hypertension) I10 Heart failure with preserved ejection fraction I50.30 Atrial fibrillation I48.91 Diabetes mellitus type 2, uncontrolled, with complications Acute anemia D64.9 Staphylococcus epidermidis bacteremia R78.81; B95.7
[2024-06-28] MEDS: tamsulosin 0.4 mg Capsule PO (17:44)
[2024-06-28] MEDS: atorvastatin 40 mg Tablet PO (17:44)
[2024-06-28 17:50] LABS: Glucose Point of Care 284 mg/dL (70-110)
[2024-06-28] MEDS: trazodone 150 mg Tablet PO (20:09)
[2024-06-28 20:46] LABS: Glucose Point of Care 371 mg/dL (70-110)
[2024-06-28] MEDS: insulin glargine 100 units/1 mL 5 UNIT SUBCUT (22:28)
[2024-06-28] MEDS: insulin lispro 100 unit/1 mL 6 UNIT SUBCUT (22:28)
[2024-06-29] VITALS (14 sets, daily range): BP systolic 141–186; BP diastolic 55–83; PULSE 68–82; RESP 16–22; TEMP 36.3–36.7; O2SAT 91–95
[2024-06-29 02:02] LABS: Glucose Point of Care 262 mg/dL (70-110)
[2024-06-29] MEDS: insulin lispro 100 unit/1 mL 7 UNIT SUBCUT (02:27)
[2024-06-29] MEDS: nicotine 21 mg Patch 1 PATCH TRANSDERMA (03:12)
[2024-06-29] MEDS: ipratropium-albuterol 3 mL Neb INHALATION ×5 (03:28→21:49)
[2024-06-29] MEDS: levothyroxine 25 mcg Tablet PO (05:56)
[2024-06-29] MEDS: amlodipine 10 mg Tablet PO (05:56)
[2024-06-29] MEDS: pantoprazole 40 mg SDV IVP ×2 (05:56→18:15)
[2024-06-29] MEDS: sertraline 100 mg Tablet PO (05:56)
[2024-06-29] MEDS: saline nasal spray 44mL Btl 1 SPRAY NASAL (06:00)
[2024-06-29] MEDS: pramipexole 0.25 mg Tablet PO ×2 (06:00→21:23)
[2024-06-29 06:32] LABS: Glucose Point of Care 184 mg/dL (70-110)
[2024-06-29 06:59] LABS: Basophils # 0.1 10^3/uL (0.0-0.1); Basophils % 0.5 %; Eosinophils # 0.3 10^3/uL (0.0-0.8); Hematocrit 23.7 % (37-53); Lymphocytes # 0.8 10^3/uL (0.8-4.8); Lymphocytes % 8.1 %; Mean Corpuscular HGB Conc 30.8 g/dL (30-55); Mean Corpuscular Hemoglobin 28.4 pg (27-33); Mean Corpuscular Volume 92.2 fl (82-101); Mean Platelet Volume 10.3 fL (7.4-10.4); Monocytes % 9.5 %; Neutrophils # 8.07 10^3/uL (1.8-7.7); Neutrophils % 78.2 %; Nucleated Red Blood Cells % 0 %; Platelet Count 164 10^3/cmm (157-399); Red Blood Count 2.57 10^6/uL (3.85-5.65); Red Cell Distribution Width 13.4 % (12.1-15.1); White Blood Count 10.31 10^3/uL (3.29-11.43)
[2024-06-29 07:16] LABS: Anion Gap 15.6 (5-19); Blood Urea Nitrogen 67 mg/dL (8-23); Calcium 8.2 mg/dL (8.5-10.5); Carbon Dioxide 24 mmol/L (22-29); Chloride 98 mmol/L (98-107); Glomerular Filtration Rate 22.6 mL/min (90-130); Glucose 163 mg/dL (65-115); Osmolality Calculated 299 mOsm/kg (285-295); Potassium 4.6 mmol/L (3.5-5.1); Sodium 133 mmol/L (136-145)
[2024-06-29] MEDS: insulin glargine 100 units/1 mL 15 UNIT SUBCUT ×2 (11:10→18:22)
[2024-06-29] MEDS: insulin lispro 100 unit/1 mL SUBCUT ×4 (11:10→21:24)
[2024-06-29] MEDS: amoxicillin-clav 875-125 mg Tablet 1 TAB PO ×2 (11:11→18:14)
[2024-06-29] MEDS: metoprolol tartrate 25 mg Tablet PO (11:12)
[2024-06-29] MEDS: isosorbide mononitrate ER 30 mg Tablet PO ×2 (11:12→18:14)
[2024-06-29] MEDS: hyDRALAzine 50 mg Tablet 100 MG PO ×3 (11:12→21:23)
[2024-06-29] MEDS: bumetanide 1 mg Tablet 1.5 MG PO ×2 (11:13→18:14)
[2024-06-29] MEDS: gabapentin 300 mg Capsule PO ×3 (11:17→21:19)
[2024-06-29] MEDS: nystatin cream 30 gm 1 APPLIC TOPICAL ×2 (11:20→18:18)
[2024-06-29 11:47] LABS: Glucose Point of Care 272 mg/dL (70-110)
--- NOTE | 2024-06-29 11:47 | PC.SOCIAL ---
IMM Update pg 2 of IMM Updated and reviewed w/ patient. Copy provided and copy dated, initialed and placed in chart.
[2024-06-29] MEDS: bisacodyl 5 mg Tablet 10 MG PO (12:45)
[2024-06-29 16:45] LABS: Glucose Point of Care 247 mg/dL (70-110)
--- NOTE | 2024-06-29 17:59 | P.PN_ITS ---
Subjective 2 Subjective: Patient was seen this morning, no complaints, no fevers, chills, no cough Vitals/I&O/Wt Last Vital Signs Temp 97.7 F 06/29/24 16:00 Pulse 80 06/29/24 16:00 Resp 16 06/29/24 16:00 BP 186/71 06/29/24 16:00 Pulse Ox 94 06/29/24 16:00 O2 Del Method Nasal Cannula 06/29/24 16:00 O2 Flow Rate 4 06/29/24 15:47 06/29/24 06/29/24 06/29/24 06:59 14:59 22:59 Intake Total 712 / 712 Balance 712 / 712 Weight last 48 hrs Weight 183.523 kg Weight 178.517 kg Physical Exam 2 Const: COMMON NORMALS: no acute distress and patient oriented x3 Resp: COMMON NORMALS: normal respiratory effort, No retractions, No use of accessory muscles and clear to auscultation bilaterally AUSCULTATION: clear to auscultation bilaterally Cardio: COMMON NORMALS: regular rate, regular rhythm, S1 normal heart sound present and S2 normal heart sound present RATE: regular rate RHYTHM: r egular rhythm HEART SOUNDS: S1 normal heart sound present and S2 normal heart sound present GI: COMMON NORMALS: Normal to inspection, nondistended, normoactive bowel sounds present and non-tender Extremity: COMMON NORMALS: no pedal edema Neuro: COMMON NORMALS: patient oriented x3 Psych: COMMON NORMALS: mental status grossly normal Data 06/29/24 06:38 06/29/24 06:38 Micro: Microbiology 06/24/24 16:52 Blood Culture - Final Blood NO GROWTH AFTER 5 DAYS 06/24/24 16:47 Blood Culture - Final Blood NO GROWTH AFTER 5 DAYS 06/23/24 15:42 Blood Culture - Final Blood NO GROWTH AFTER 5 DAYS A&P Assessment and plan (1) Pneumonia: (2) Generalized weakness: (3) HTN (hypertension): (4) Heart failure with preserved ejection fraction: (5) Atrial fibrillation: (6) Diabetes mellitus type 2, uncontrolled, with complications: (7) Acute anemia: (8) Staphylococcus epidermidis bacteremia: Plan Acute anemia -Hemoglobin 7.3 -Transfused 2 unit PRBC -Will do a workup for hemolytic anemia, LDH, haptoglobin, thalassemia -MDS is a possibility likely will require bone marrow biopsy -Haptoglobin 268 -LDH 170 -Peripheral smear pending -Reticulocyte count 3.8 -Protonix, Carafate -Ferritin 449, iron 41, will hold off on IV Venofer infusion, monitor -History of iron deficiency anemia, has multiple EGDs and colonoscopy and capsule endoscopy -Status post colonoscopy, found to have polypectomy of bleeding semipedunculated polyp just proximal to hepatic flexure base was bleeding and controlled with 3 ultra clips -Follow-up with Dr. Root as outpatient Generalized weakness ? UA p no UTI ? Likely component of acute anemia ? Protonix 40 IV twice daily, Carafate # Possible component of pneumonia seen on chest x-ray Pneumonia seen on chest x-ray ? blood cultures, -Switch to Augmentin Type 2 diabetes mellitus Lantus 10 units twice daily Moderate dose sliding scale Bilateral lower extremity edema ? Continue home Bumex Staphylococcus epidermidis bacteremia -Seen in 1 of 2 blood cultures -Likely contamination -Repeat blood cultures negative -discontinue vancomycin for now MONCHO, creatinine up to 2.8, Bumex PT OT ? Lovenox for DVT prophylaxis on hold due to acute anemia, switch to SCDs Patient requires hospitalization for acute anemia, Attestations 2 Medical Necessity Statement*: Patient requires hospitalization acute anemia Diagnoses Pneumonia J18.9 Generalized weakness R53.1 HTN (hypertension) I10 Heart failure with preserved ejection fraction I50.30 Atrial fibrillation I48.91 Diabetes mellitus type 2, uncontrolled, with complications Acute anemia D64.9 Staphylococcus epidermidis bacteremia R78.81; B95.7
[2024-06-29] MEDS: tamsulosin 0.4 mg Capsule PO (18:14)
[2024-06-29] MEDS: atorvastatin 40 mg Tablet PO (18:14)
[2024-06-29 20:29] LABS: Glucose Point of Care 272 mg/dL (70-110)
[2024-06-29] MEDS: trazodone 150 mg Tablet PO (21:19)
[2024-06-30] VITALS (9 sets, daily range): BP systolic 106–172; BP diastolic 61–80; PULSE 76–84; RESP 17–19; TEMP 36.5–36.8; O2SAT 90–97
[2024-06-30] MEDS: amlodipine 10 mg Tablet PO (06:05)
[2024-06-30] MEDS: sertraline 100 mg Tablet PO (06:05)
[2024-06-30] MEDS: levothyroxine 25 mcg Tablet PO (06:05)
[2024-06-30] MEDS: pantoprazole 40 mg SDV IVP (06:05)
[2024-06-30 06:27] LABS: Glucose Point of Care 228 mg/dL (70-110)
[2024-06-30] MEDS: ipratropium-albuterol 3 mL Neb INHALATION ×2 (07:33→11:52)
[2024-06-30 07:44] LABS: Basophils # 0.1 10^3/uL (0.0-0.1); Basophils % 0.7 %; Eosinophils # 0.3 10^3/uL (0.0-0.8); Hematocrit 23.8 % (37-53); Lymphocytes # 0.8 10^3/uL (0.8-4.8); Lymphocytes % 9.1 %; Mean Corpuscular HGB Conc 30.3 g/dL (30-55); Mean Corpuscular Hemoglobin 28.1 pg (27-33); Mean Platelet Volume 10.3 fL (7.4-10.4); Monocytes # 0.8 10^3/uL (0.2-0.9); Monocytes % 8.6 %; Neutrophils # 6.93 10^3/uL (1.8-7.7); Neutrophils % 77.6 %; Nucleated Red Blood Cells % 0 %; Platelet Count 156 10^3/cmm (157-399); Red Blood Count 2.56 10^6/uL (3.85-5.65); Red Cell Distribution Width 13.2 % (12.1-15.1); White Blood Count 8.93 10^3/uL (3.29-11.43)
[2024-06-30 08:01] LABS: Anion Gap 16.7 (5-19); Blood Urea Nitrogen 72 mg/dL (8-23); Calcium 8.2 mg/dL (8.5-10.5); Carbon Dioxide 24 mmol/L (22-29); Chloride 100 mmol/L (98-107); Creatinine Clr Calc Pharmacy 43.7279; Glomerular Filtration Rate 23.6 mL/min (90-130); Glucose 214 mg/dL (65-115); Osmolality Calculated 310 mOsm/kg (285-295); Potassium 4.7 mmol/L (3.5-5.1); Sodium 136 mmol/L (136-145)
[2024-06-30] MEDS: insulin glargine 100 units/1 mL 15 UNIT SUBCUT (08:10)
[2024-06-30] MEDS: hyDRALAzine 50 mg Tablet 100 MG PO (08:11)
[2024-06-30] MEDS: insulin lispro 100 unit/1 mL SUBCUT ×2 (08:11→11:52)
[2024-06-30] MEDS: gabapentin 300 mg Capsule PO (08:12)
[2024-06-30] MEDS: isosorbide mononitrate ER 30 mg Tablet PO (08:12)
[2024-06-30] MEDS: bumetanide 1 mg Tablet 1.5 MG PO (08:12)
[2024-06-30] MEDS: amoxicillin-clav 875-125 mg Tablet 1 TAB PO (08:12)
[2024-06-30] MEDS: metoprolol tartrate 25 mg Tablet PO (08:12)
[2024-06-30] MEDS: nicotine 21 mg Patch 1 PATCH TRANSDERMA (08:14)
[2024-06-30] MEDS: nystatin cream 30 gm 1 APPLIC TOPICAL (08:17)
[2024-06-30 11:38] LABS: Glucose Point of Care 256 mg/dL (70-110)
[2024-06-30] MEDS: pramipexole 0.25 mg Tablet PO (11:57)
--- NOTE | 2024-06-30 12:58 | P.DS_ITS ---
Discharge Providers Date of Admission: 06/24/24 10:38 Date of Discharge: June 30, 2024 Attending Provider at Admission: Kiran Quinones MD Attending Provider at Discharge: Kiran Quinones MD Primary Care Provider: Rachel Bills MD Diagnoses at Discharge Discharge Diagnosis (1) Pneumonia: Status: Resolved (2) Generalized weakness: Status: Resolved (3) HTN (hypertension): Status: Acute (4) Heart failure with preserved ejection fraction: Status: Acute (5) Atrial fibrillation: Status: Resolved (6) Diabetes mellitus type 2, uncontrolled, with complications: Status: Acute (7) Acute anemia: Status: Resolved (8) Staphylococcus epidermidis bacteremia: Status: Resolved Reason for Visit Reason for Visit: gen weakness Hospital Course Hospital Course Juan Thomas is a 68 year old male with a past medical history of CKD, morbid obesity, type 2 diabetes mellitus, CHF, hypertension, atrial fibrillation who presents [facility] for complaints of weakness, fatigue, malaise. Currently patient is alert oriented x 3, following all commands, he denies any nausea, no vomiting, no abdominal pain, no chest pain, no shortness of breath does have lower extremity edema but not more than ordinary he tells me, no back pain no headache, blurry vision, he did have a fall a few weeks ago, no persistent pain, Patient was admitted to [facility] for generalized weakness multifactorial from UTI, anemia UTI received IV antibiotics, completed antibiotic therapy as inpatient Concerns for pneumonia completed antibiotic therapy as inpatient Acute anemia hemoglobin down to 7, transfused 2 units PRBC, status post EGD and colonoscopy with a history of multiple EGD and colonoscopies and capsule endoscopy in the past with no acute findings. Found to have a polyp, pathology pending, status post polypectomy with bleeding, controlled with 3 clips. Monitored as inpatient, overall clinically improved, hemoglobin remained stable, no bloody or black stools, no hemodynamic compromise. On discharge had a detailed discussion with patient that I believe that his persistent chronic anemia is likely a component of bone marrow pathology such as myelodysplastic syndrome. He does have iron deficient anemia however his iron levels were reasonable during his hospitalization. Referral sent for him to follow-up with hematology oncology as outpatient for consideration of bone marrow biopsy. Physical Exam Const: COMMON NORMALS: no acute distress and patient oriented x3 Resp: COMMON NORMALS: normal respiratory effort, No retractions, No use of accessory muscles and clear to auscultation bilaterally AUSCULTATION: clear to auscultation bilaterally Cardio: COMMON NORMALS: regular rate, regular rhythm, S1 normal heart sound present and S2 normal heart sound present RATE: regular rate RHYTHM: regular rhythm HEART SOUNDS: S1 normal heart sound present and S2 normal heart sound present GI: COMMON NORMALS: Normal to inspection, nondistended, normoactive bowel sounds present and non-tender Extremity: COMMON NORMALS: no pedal edema Neuro: COMMON NORMALS: patient oriented x3 Psych: COMMON NORMALS: mental status grossly normal Discharge Data Studies Completed and Pending Completed Studies During Hospitalization Category Date Time Status XR chest 1V portable [id number] Stat Exams 06/23/24 11:44 Completed Pathology: Surgical [PTH] Routine Pth 06/25/24 15:11 Completed Pending at discharge Category Date Time Status COVID [SARS Covid-2 Antigen] Routine Lab 06/30/24 12:39 Uncollected Thalassemia & Hemoglobinopathy Routine Lab 06/27/24 16:56 Ordered Radiology Impressions Chest X-Ray 06/23/24 11:44 IMPRESSION: 1. Asymmetric opacity in the left lower lung. Nonspecific finding. Possible atelectasis/scarring, edema or infection. 2. Indistinct central interstitial markings may be related to AP technique or interstitial edema. 3. Mild cardiac enlargement. Laboratory Results WBC 8.93 10^3/uL (3.29-11.43) 06/30/24 06:58 RBC 2.56 10^6/uL (3.85-5.65) L 06/30/24 06:58 Hgb 7.20 g/dL (11.27-16.99) L 06/30/24 06:58 Hct 23.8 % (37-53) L 06/30/24 06:58 MCV 93.0 fl (82-101) 06/30/24 06:58 MCH 28.1 pg (27-33) 06/30/24 06:58 MCHC 30.3 g/dL (30-55) 06/30/24 06:58 RDW 13.2 % (12.1-15.1) 06/30/24 06:58 Plt Count 156 10^3/cmm (157-399) L 06/30/24 06:58 MPV 10.3 fL (7.4-10.4) 06/30/24 06:58 Neut % (Auto) 77.6 % 06/30/24 06:58 Lymph % (Auto) 9.1 % 06/30/24 06:58 [place] % (Auto) 8.6 % 06/30/24 06:58 Eos % (Auto) 3.0 % 06/30/24 06:58 Baso % (Auto) 0.7 % 06/30/24 06:58 Reticulocyte % (Auto) 3.8 % (0.5-2.0) H 06/27/24 04:40 Neut # (Auto) 6.93 10^3/uL (1.8-7.7) 06/30/24 06:58 Lymph # (Auto) 0.8 10^3/uL (0.8-4.8) 06/30/24 06:58 [place] # (Auto) 0.8 10^3/uL (0.2-0.9) 06/30/24 06:58 Eos # (Auto) 0.3 10^3/uL (0.0-0.8) 06/30/24 06:58 Baso # (Auto) 0.1 10^3/uL (0.0-0.1) 06/30/24 06:58 Nucleated RBC % (auto) 0 % 06/30/24 06:58 Nucleated RBCs # 0.0 /100WBC 06/30/24 06:58 Peripher Smr Path Cons Sent for review 06/27/24 04:40 ESR Cancelled 06/23/24 11:44 ESR Westergren 79 mm/h (< OR = 20) H 06/23/24 11:44 ESR Comment Not Reportable 06/23/24 11:44 Haptoglobin 268.0 mg/L (30-200) H 06/27/24 04:40 Sodium 136 mmol/L (136-145) 06/30/24 06:58 Potassium 4.7 mmol/L (3.5-5.1) 06/30/24 06:58 Chloride 100 mmol/L (98-107) 06/30/24 06:58 Carbon Dioxide 24 mmol/L (22-29) 06/30/24 06:58 Anion Gap 16.7 (5-19) 06/30/24 06:58 BUN 72 mg/dL (8-23) H 06/30/24 06:58 Creatinine 2.7 mg/dL (0.7-1.2) H 06/30/24 06:58 GFR Calculation 23.6 mL/min (90-130) L 06/30/24 06:58 Glucose 214 mg/dL (65-115) H 06/30/24 06:58 POC Glucose 256 mg/dL (70-110) H 06/30/24 11:10 Estimat Average Glucose 192 06/23/24 18:28 Hemoglobin A1c 8.3 % (4.0-6.0) H 06/23/24 18:28 Calculated Osmolality 310 mOsm/kg (285-295) H 06/30/24 06:58 Lactic Acid 1.3 mmol/L (0.5-2.2) 06/23/24 15:50 Calcium 8.2 mg/dL (8.5-10.5) L 06/30/24 06:58 Phosphorus 4.9 mg/dL (2.5-4.5) H 06/27/24 04:40 Magnesium 2.9 mg/dL (1.7-2.3) H 06/27/24 04:40 Iron 41 ug/dL (59-158) L 06/23/24 11:44 TIBC 331 mcg/dl 06/23/24 11:44 % Saturation 12.3 % (20-50) L 06/23/24 11:44 Unsat Iron Binding 290 ug/dL (112-347) 06/23/24 11:44 Ferritin 449 ng/mL (30-400) H 06/23/24 11:44 Total Bilirubin 0.2 mg/dL (0.15-1.2) 06/27/24 04:40 AST 15 U/L (0-40) 06/27/24 04:40 ALT 9 U/L (0-41) 06/27/24 04:40 Alkaline Phosphatase 134 U/L (40-130) H 06/27/24 04:40 Lactate Dehydrogenase 170 U/L (135-225) 06/28/24 05:47 C-Reactive Protein 31.9 mg/L (0.0-4.9) H 06/23/24 11:44 NT-Pro-B Natriuret Pep 3960 pg/mL (0-125) H 06/23/24 11:44 Total Protein 6.6 g/dL (6.6-8.7) 06/27/24 04:40 Albumin 3.3 g/dL (3.5-5.2) L 06/27/24 04:40 Globulin 3.3 g/dL (1.3-4.6) 06/27/24 04:40 Triglycerides 65 mg/dL (0-150) 06/23/24 11:44 Cholesterol 94 mg/dL (0-200) 06/23/24 11:44 LDL Cholesterol, Calc 44 mg/dL (50-129) L 06/23/24 11:44 HDL Cholesterol 37 mg/dL (60-100) L 06/23/24 11:44 LDL/HDL Ratio 1.19 RATIO (0.00-3.22) 06/23/24 11:44 Cholesterol/HDL Ratio 2.54 mg/dL (1.0-5.00) 06/23/24 11:44 Procalcitonin 0.13 ng/mL (0-0.5) 06/23/24 11:44 TSH 1.14 uIU/mL (0.27-4.20) 06/23/24 11:44 Urine Color Yellow (Yellow) 06/23/24 16:51 Urine Appearance Clear (CLEAR) 06/23/24 16:51 Urine pH 5.0 (5-7) 06/23/24 16:51 Ur Specific [place] 1.016 (1.005-1.030) 06/23/24 16:51 Urine Protein 2+ (Negative) A 06/23/24 16:51 Urine Glucose (UA) 2+ (Normal) H 06/23/24 16:51 Urine Ketones Negative (Negative) 06/23/24 16:51 Urine Blood Negative (Negative) 06/23/24 16:51 Urine Nitrate Negative (Negative) 06/23/24 16:51 Urine Bilirubin Negative (Negative) 06/23/24 16:51 Urine Urobilinogen 0.2 mg/dL (Negative) 06/23/24 16:51 Ur Leukocyte Esterase Negative (Negative) 06/23/24 16:51 Urine RBC 0-2 /hpf (0-2) 06/23/24 16:51 Urine WBC 0-5 /hpf (0-5) 06/23/24 16:51 Ur Squamous Epith Cells 0-5 /hpf (0-5) 06/23/24 16:51 Amorphous Sediment Not Reportable 06/23/24 16:51 Urine Bacteria None seen /hpf (NONE) 06/23/24 16:51 Hyaline Casts 2.46 /lpf 06/23/24 16:51 Blood Type O Negative 06/23/24 13:40 Rho(D) Type Rh negative 06/23/24 13:40 Antibody Screen Negative 06/23/24 13:40 Crossmatch See Detail 06/23/24 13:40 Vitals Last Vital Signs Temp 98.2 F 06/30/24 11:08 Pulse 78 06/30/24 11:59 Resp 18 06/30/24 11:52 BP 172/61 06/30/24 11:08 Pulse Ox 94 06/30/24 11:52 O2 Del Method Nasal Cannula 06/30/24 11:52 O2 Flow Rate 4 06/30/24 11:52 Discharge Plan Discharge Patient Disposition: Xfer SNF Condition: Stable Prescriptions: Continued sertraline 100 mg tablet 100 mg PO QAM clonazepam 1 mg tablet 0.5 mg PO BEDTIME PRN (Reason: Sleep) levothyroxine 25 mcg tablet 25 mcg PO QAM levocetirizine 5 mg tablet 5 mg PO QAM hydralazine 100 mg tablet 100 mg PO TID trazodone 150 mg tablet 150 mg PO BEDTIME ferrous sulfate 325 mg (65 mg iron) tablet See Rx Instructions .ROUTE .COMPLEX Rx Instructions: take 1 tablet by mouth every other day [place]elt[place] 8.4 gram powder in packet 8.4 g PO .QOD simvastatin 10 mg tablet 10 mg PO QPM tamsulosin 0.4 mg capsule 0.4 mg PO QPM ipratropium-albuterol 0.5 mg-3 mg(2.5 mg base)/3 mL Solution For Nebulization 3 ml inhalation Q6H PRN (Reason: Shortness Of Breath) Qty: 280 0RF isosorbide mononitrate 30 mg Tablet Extended Release 24 Hr 30 mg PO BID Qty: 60 0RF pramipexole 0.25 mg Tablet 0.25 mg PO TID PRN (Reason: Restless Leg Syndrome) Qty: 90 0RF gabapentin 300 mg capsule 300 mg PO TID omeprazole 20 mg capsule,delayed release(DR/EC) 20 mg PO BID metoprolol tartrate 25 mg Tablet 25 mg PO BID@0900,2100 Qty: 120 0RF bumetanide 1 mg Tablet 1.5 mg PO BID Qty: 60 0RF Rx Instructions: AM and NOON No Action acetaminophen [Tylenol] 325 mg Tablet 650 mg PO Q6H PRN (Reason: Pain) bisacodyl [Dulcolax (bisacodyl)] 10 mg Suppository 10 mg WI DAILY PRN (Reason: Constipation) nystatin 100,000 unit/gram Powder 1 applic TOPICAL BID insulin aspart U-100 100 unit/mL (3 mL) Insulin Pen See Rx Instructions .ROUTE .COMPLEX Rx Instructions: per sliding scale subcut BEFORE MEALS and at bedtime if blood sugar is: 201-250=2 251-300=4 301-350=6 351-400=8 if over 400 call insulin aspart U-100 100 unit/mL (3 mL) Insulin Pen 8 unit SUBCUT .WITH MEALS insulin glargine [Lantus Solostar U-100 Insulin] 100 unit/mL (3 mL) insulin pen 20 unit SUBCUT BID Discharge Orders: Discharge Order (Routine); Ordered 06/30/24 Ordered By: Kiran Quinones Referrals: [facility] [Outside] Jairo Root DO [Physician] - 07/13/24 9:00 am Rachel Bills MD [Primary Care Provider] - Ad Stewart MD [Hospitalist] - 1 week (We have notified your physician's clinic of the need for a follow-up appointment to be scheduled. If you have not heard from them within the next 2 business days, please call them directly. ) Discharge Diet: Cardiac Discharge Activity: Resume usual activity Patient Instructions: GI Post Discharge Instructions w/ Anesthesia, Opioid Safety Activity Restrictions/Additional Instructions: -recheck cbc in 48 hours, transfuse if hgb<7 -follow up with oncology -follow up with dr root -avoid nsaid and blood thinners -if you develop bloody or black stools please go to emergency room -Please monitor your blood sugars closely -Monitor your blood sugars 3 times daily as after meals -Please record your blood sugars, and a blood sugar log -For your NovoLog -Please inject blood sugar after meals based on sliding scale provided -Do not inject insulin if you do not eat as hypoglycemia kills -This is a NovoLog sliding scale -Insulin sliding ?fingerstick? Insulin ?141-180?0 units/sq 181-220?2 units/sq ?221-260?4 units/sq ?261-300 6 units/sq ?301-350?8 units/sq ?351-400 10 units/sq ?401-450?12 units/sq >450? 14units/sq -If your blood sugar is greater than 500 go to the emergency room -If your blood sugar is less than 60 or at anytime you feel lightheaded or dizzy or diaphoretic or have chest palpitations check your blood sugar, and eat a hard candy or drink orange juice and go immediately to the emergency room -Remember hypoglycemia kills, so if his blood sugar is less than 60 we have to increase it by taking in a sugary meal such as a hard candy or orange juice and go to the emergency room -If you have any questions please call us where here to help Discharge Attestations Time Spent in Discharge Care*: greater than 30 min Quality Metrics Clinical Quality Measures [ No reported AMI, CVA or VTE this stay] Coding Level of Care Code 45735 Total time (in minutes) for Discharge: 45 Diagnoses Pneumonia J18.9 Generalized weakness R53.1 HTN (hypertension) I10 Heart failure with preserved ejection fraction I50.30 Atrial fibrillation I48.91 Diabetes mellitus type 2, uncontrolled, with complications Acute anemia D64.9 Staphylococcus epidermidis bacteremia R78.81; B95.7
[2024-06-30 13:38] LABS: SARS Covid-2 Antigen negative (Negative)
== END 2024-06-30 15:45 | disposition skilled nursing facility (03) | DRG 811 ==
LOC: ER 14:41 → MEDSURG 17:56
PROVIDERS: Surgery; Admitting Provider Family Medicine; Emergency Provider Family Medicine; PCP Family Medicine; Visit Provider Family Medicine
PROC: 0DJ08ZZ Inspection of Upper Intestinal Tract, Via Natural or Artificial Opening Endoscopic (ICD-10-PCS; principal; 2024-06-25 14:15)
PROC: 0DJD8ZZ Inspection of Lower Intestinal Tract, Via Natural or Artificial Opening Endoscopic (ICD-10-PCS; CPT 45378; 2024-06-25 14:15)
DX: D50.9 Iron deficiency anemia, unspecified (principal); J18.9 Pneumonia, unspecified organism; I13.0 Hypertensive heart and chronic kidney disease with heart failure and stage 1 through stage 4 chronic kidney disease, or unspecified chronic kidney disease; I50.30 Unspecified diastolic (congestive) heart failure; N39.0 Urinary tract infection, site not specified; K92.2 Gastrointestinal hemorrhage, unspecified; N18.9 Chronic kidney disease, unspecified; E11.22 Type 2 diabetes mellitus with diabetic chronic kidney disease; Z79.4 Long term (current) use of insulin; I48.91 Unspecified atrial fibrillation; F17.210 Nicotine dependence, cigarettes, uncomplicated; F41.9 Anxiety disorder, unspecified; F32.A Depression, unspecified; K63.5 Polyp of colon
CPT/HCPCS: 36415; 36416; 36430; 43239; 45382; 45385; 71045; 80048; 80053; 80061; 80503; 81001; 82728; 82962; 83010; 83020; 83036; 83540; 83550; 83605; 83615; 83735; 83880; 84100; 84145; 84443; 85014; 85018; 85025; 85041; 85045; 85652; 86140; 86850; 86900; 86920; 87040; 87077; 87150; 87186; 87205; 87426; 88305; 93005; 94640; 94664; 96361; 96372; 96374; 96375; 97110; 97116; 97161; 97167; 97530; 97535; 99285; G0378; J0360; J0456; J0696; J1815; J2470; J2704; J3370; J3490; J7040; J7050; P9058

== ENCOUNTER 2024-07-03 16:09 | Emergency (ER) | payer MEDICARE, SELFPAY ==
[2024-07-03] VITALS (7 sets, daily range): BP systolic 140–169; BP diastolic 72–87; PULSE 70–83; RESP 15–23; TEMP 36.6; O2SAT 91–94; BMI 51.4
--- NOTE | 2024-07-03 16:13 | USR_ITS ---
PROCEDURE INFORMATION: Exam: US Duplex Right Upper Extremity Veins, Limited Exam date and time: 07/03/2024 4:53 PM Age: 68 years old Clinical indication: Swelling (edema) of limb; Upper extremity, right; Prior surgery; Surgery date: 6+ months; Surgery type: Shoulder TECHNIQUE: Imaging protocol: Real-time duplex ultrasound of the right Upper Extremity with 2-D mishra scale, color Doppler flow and spectral waveform analysis with image documentation. Limited exam focused on the right upper extremity veins. COMPARISON: US renal BI* [id number] 05/19/2024 1:13 AM FINDINGS: Right deep veins: Unremarkable. Axillary, brachial and radial veins are patent throughout without thrombus. Normal Doppler waveforms. Normal compressibility and/or augmentation response. Visualized internal jugular and subclavian veins are patent. Superficial veins: Unremarkable. Visualized cephalic and basilic veins are patent without thrombus. Soft tissues: Mild subcutaneous [place]. [place] [id number] IMPRESSION: No sonographic evidence of deep vein thrombosis.
--- NOTE | 2024-07-03 16:13 | XRR_ITS ---
PROCEDURE INFORMATION: Exam: XR Chest Exam date and time: 07/03/2024 4:44 PM Age: 68 years old Clinical indication: Dyspnea; Additional info: SOB and cough TECHNIQUE: Imaging protocol: Radiologic exam of the chest. Views: 1 view. COMPARISON: CR XR chest 1V portable [id number] 06/23/2024 11:50 AM FINDINGS: Lungs: Streaky opacities at the lung bases, likely secondary to atelectasis and/or scarring. No consolidation. Pleural spaces: Unremarkable. No pleural effusion. No pneumothorax. Heart/Mediastinum: Mild cardiomegaly. Bones/joints: No acute osseous abnormality. Mild degenerative changes. XR/XR chest 1V portable [id number] IMPRESSION: No acute radiographic findings.
[2024-07-03] MEDS: FUROsemide 10 mg/mL SDV 10mL 60 MG IVP (16:37)
[2024-07-03 16:45] LABS: Basophils % 0.5 %; Eosinophils # 0.2 10^3/uL (0.0-0.8); Eosinophils % 2.4 %; Hematocrit 23.1 % (37-53); Lymphocytes # 0.8 10^3/uL (0.8-4.8); Mean Corpuscular HGB Conc 30.3 g/dL (30-55); Mean Corpuscular Hemoglobin 28.6 pg (27-33); Mean Corpuscular Volume 94.3 fl (82-101); Mean Platelet Volume 10.3 fL (7.4-10.4); Monocytes # 0.8 10^3/uL (0.2-0.9); Monocytes % 9.2 %; Neutrophils # 6.77 10^3/uL (1.8-7.7); Neutrophils % 78.2 %; Nucleated Red Blood Cells % 0 %; Platelet Count 187 10^3/cmm (157-399); Red Blood Count 2.45 10^6/uL (3.85-5.65); Red Cell Distribution Width 13.2 % (12.1-15.1); White Blood Count 8.66 10^3/uL (3.29-11.43)
--- NOTE | 2024-07-03 16:51 | ED_ITS ---
HPI - Extremity Problem 2 General: Chief complaint: Extremity Injury, Upper Stated complaint: possible blood in R arm Time Seen by Provider: 07/03/24 16:10 Source: patient and EMS Mode of arrival: EMS Limitations: no limitations History of Present Illness: 68-year-old male who has extensive histo ry of CHF states has been having some increasing swelling to his right arm the last few days was sent here with concern of a blood clot. He denies any pain denies any injuries he wears 4 L at baseline denies any increased shortness of breath. Denies any chest pain. Associated symptoms: Deny chest pain, fever(s) or rash Related Data Home Medications Medication Instructions Recorded Confirmed clonazepam 1 mg tablet 0.5 mg PO BEDTIME PRN Sleep 08/07/21 06/23/24 sertraline 100 mg tablet 100 mg PO QAM 08/07/21 06/23/24 levocetirizine 5 mg tablet 5 mg PO QAM 02/16/22 06/23/24 levothyroxine 25 mcg tablet 25 mcg PO QAM 02/16/22 06/23/24 simvastatin 10 mg tablet 10 mg PO QPM 12/16/23 06/23/24 tamsulosin 0.4 mg capsule 0.4 mg PO QPM 12/16/23 06/23/24 amlodipine 10 mg tablet 10 mg PO QAM 05/19/24 06/23/24 gabapentin 300 mg capsule 300 mg PO TID 05/19/24 06/23/24 omeprazole 20 mg capsule,delayed 20 mg PO QAM 05/19/24 06/23/24 release ferrous sulfate 325 mg (65 mg 325 mg PO BID 06/23/24 06/23/24 iron) tablet hydralazine 100 mg tablet 100 mg PO TID 06/23/24 06/23/24 patiromer calcium sorbitex 8.4 8.4 g PO .QOD 06/23/24 06/23/24 gram oral powder packet (Veltassa) trazodone 150 mg tablet 150 mg PO BEDTIME 06/23/24 06/23/24 Previous Rx's Medication Instructions Recorded ipratropium 0.5 mg-albuterol 3 mg 3 ml inhalation Q6H PRN Shortness 12/19/23 (2.5 mg base)/3 mL nebulization Of Breath #280 mL soln isosorbide mononitrate 30 mg 30 mg PO BID #60 tabs 12/19/23 tablet,extended release 24 hr pantoprazole 40 mg tablet,delayed 40 mg PO BID #60 tabs 12/19/23 release pramipexole 0.25 mg tablet 0.25 mg PO TID PRN Restless Leg 12/19/23 Syndrome #90 tabs bumetanide 1 mg tablet 1.5 mg (1.5 x 1 mg) PO BID #60 tabs 05/22/24 insulin glargine 100 unit/mL (3 16 unit (0.16 mL) SUBCUT BID #10 mL 05/22/24 mL) subcutaneous pen (Lantus Solostar U-100 Insulin) metoprolol tartrate 25 mg tablet 25 mg PO BID@0900,2100 #120 tabs 05/22/24 insulin aspart U-100 100 unit/mL See Rx Instructions .Route 06/30/24 (3 mL) subcutaneous pen (Novolog .COMPLEX #15 mL FlexPen U-100 Insulin aspart) Allergies Allergy/AdvReac Type Severity Reaction Status Date / Time No Known Allergies Allergy Verified 07/03/24 16:20 Review of Systems 2 Const: Denies: fever(s), chills, body aches or change in appetite Eyes: Denies: blurry vision or eye discomfort ENMT: Denies: throat pain or dental pain Card: Denies: chest pain Resp: Denies: dyspnea GI: Denies: abdominal pain, nausea, vomiting or diarrhea Musc: Reports: extremity swelling; Denies: neck pain or back pain Skin/Breast: Denies: rash Neuro: Denies: headache(s) PFSH ED 2 PFSH: Medical History Pneumonia Anemia Acute hyperkalemia Hypotension Hypochromic microcytic anemia Anxiety and depression Normocytic anemia Heart failure Atrial flutter Respiratory failure Iron deficiency anemia Brain aneurysm Necrotizing fasciitis of shoulder region Diabetes Surgical History Status post colonoscopy (10/18/21) H/O esophagogastroduodenoscopy (10/18/21) History of shoulder surgery Family History Grandfather Clotting disorder Family/Other CAD (coronary artery disease) Cancer Diabetes Stroke Grandmother CAD (coronary artery disease) Dementia Father Cancer Lung disease Mother Cancer Denies family history of Chronic kidney disease (CKD) Suicide Anesthesia complication Bleeding disorder Social History Smoking and tobacco/nicotine status: current every day tobacco/nicotine user (1 ppd, smoked x 50 years) cigarettes Packs smoked per day: 2 Years cigarettes smoked: 50 [ Other cigarette details: started at age 16] Alcohol intake: never Substance/Drug Use: never Physical Exam 2 Const: COMMON NORMALS: patient oriented x3 HENMT: COMMON NORMALS: normocephalic and atraumatic HEAD & SCALP: n ormocephalic and atraumatic Eye: COMMON NORMALS: conjunctivae normal CONJUNCTIVA: Yes conjunctivae normal Neck/C-Spine: COMMON NORMALS: full ROM and supple Chest: COMMONS NORMALS: normal inspection of the chest Resp: COMMON NORMALS: normal respiratory effort, No retractions, No use of accessory muscles and clear to auscultation bilaterally AUSCULTATION: clear to auscultation bilaterally Cardio: COMMON NORMALS: regular rate, regular rhythm and No murmurs present (Cardio) RATE: regular rate RHYTHM: regular rhythm GI: COMMON NORMALS: Normal to inspection, nondistended, normoactive bowel sounds present, Soft to palpation, non-tender and no masses PALPATION: Yes Soft to palpation Extremity: COMMON NORMALS: full ROM NARRATIVE EXTREMITY EXAM: 2+ edema to lower extremities does have some right arm swelling distal pulses sensation intact no warmth to touch Neuro: COMMON NORMALS: patient oriented x3, moves all extremities and no focal motor deficits Psych: COMMON NORMALS: mental status grossly normal, Normal thought process present and cooperative THOUGHT PROCESS: Normal thought process present Skin: COMMON NORMALS: no rashes or lesions noted and no wounds GENERAL SKIN EXAM: no rashes or lesions noted Course 2 Vital Signs: Vital signs: Vital Signs Temperature 97.8 F 07/03/24 16:12 Pulse Rate 79 07/03/24 16:50 Respiratory Rate 15 07/03/24 16:50 Blood Pressure 164/76 07/03/24 16:50 Pulse Oximetry 93 07/03/24 16:50 Oxygen Delivery Me thod Nasal Cannula 07/03/24 16:50 Oxygen Flow Rate 4 07/03/24 16:50 MDM - Extremity (Nontraumatic) Medical Decision Making Patient presents with right arm swelling is likely edema from his CHF he has no signs of pulmonary edema no signs of DVT on ultrasound he is stable for discharge he is to do compression return if worsening. Medical Records I reviewed the patient's medical records. Lab Data I reviewed the patient's lab results. 07/03/24 16:38 07/03/24 16:38 Radiology Impressions Venous Duplex 07/03/24 16:13 IMPRESSION: No sonographic evidence of deep vein thrombosis. Laboratory Results WBC 8.66 10^3/uL (3.29-11.43) 07/03/24 16:38 RBC 2.45 10^6/uL (3.85-5.65) L 07/03/24 16:38 Hgb 7.00 g/dL (11.27-16.99) L 07/03/24 16:38 Hct 23.1 % (37-53) L 07/03/24 16:38 MCV 94.3 fl (82-101) 07/03/24 16:38 MCH 28.6 pg (27-33) 07/03/24 16:38 MCHC 30.3 g/dL (30-55) 07/03/24 16:38 RDW 13.2 % (12.1-15.1) 07/03/24 16:38 Plt Count 187 10^3/cmm (157-399) 07/03/24 16:38 MPV 10.3 fL (7.4-10.4) 07/03/24 16:38 Neut % (Auto) 78.2 % 07/03/24 16:38 Lymph % (Auto) 9.0 % 07/03/24 16:38 [place] % (Auto) 9.2 % 07/03/24 16:38 Eos % (Auto) 2.4 % 07/03/24 16:38 Baso % (Auto) 0.5 % 07/03/24 16:38 Neut # (Auto) 6.77 10^3/uL (1.8-7.7) 07/03/24 16:38 Lymph # (Auto) 0.8 10^3/uL (0.8-4.8) 07/03/24 16:38 [place] # (Auto) 0.8 10^3/uL (0.2-0.9) 07/03/24 16:38 Eos # (Auto) 0.2 10^3/uL (0.0-0.8) 07/03/24 16:38 Baso # (Auto) 0.0 10^3/uL (0.0-0.1) 07/03/24 16:38 Nucleated RBC % (auto) 0 % 07/03/24 16:38 Nucleated RBCs # 0.0 /100WBC 07/03/24 16:38 Sodium 141 mmol/L (136-145) 07/03/24 16:38 Potassium 4.6 mmol/L (3.5-5.1) 07/03/24 16:38 Chloride 103 mmol/L (98-107) 07/03/24 16:38 Carbon Dioxide 26 mmol/L (22-29) 07/03/24 16:38 Anion Gap 16.6 (5-19) 07/03/24 16:38 BUN 61 mg/dL (8-23) H 07/03/24 16:38 Creatinine 2.5 mg/dL (0.7-1.2) H 07/03/24 16:38 GFR Calculation 25.8 mL/min (90-130) L 07/03/24 16:38 Glucose 246 mg/dL (65-115) H 07/03/24 16:38 Calculated Osmolality 317 mOsm/kg (285-295) H 07/03/24 16:38 Calcium 8.2 mg/dL (8.5-10.5) L 07/03/24 16:38 Total Bilirubin 0.2 mg/dL (0.15-1.2) 07/03/24 16:38 AST 17 U/L (0-40) 07/03/24 16:38 ALT 10 U/L (0-41) 07/03/24 16:38 Alkaline Phosphatase 142 U/L (40-130) H 07/03/24 16:38 NT-Pro-B Natriuret Pep 3974 pg/mL (0-125) H 07/03/24 16:38 Total Protein 6.6 g/dL (6.6-8.7) 07/03/24 16:38 Albumin 3.3 g/dL (3.5-5.2) L 07/03/24 16:38 Globulin 3.3 g/dL (1.3-4.6) 07/03/24 16:38 All radiology interpretation(s) finalized by discharge Discharge Plan Discharge Patient Disposition: Home Clinical Impression: Arm swelling, CHF (congestive heart failure) Condition: Stable Prescriptions: No Action sertraline 100 mg tablet 100 mg PO QAM clonazepam 1 mg tablet 0.5 mg PO BEDTIME PRN (Reason: Sleep) levothyroxine 25 mcg tablet 25 mcg PO QAM levocetirizine 5 mg tablet 5 mg PO QAM hydralazine 100 mg tablet 100 mg PO TID trazodone 150 mg tablet 150 mg PO BEDTIME ferrous sulfate 325 mg (65 mg iron) tablet 325 mg PO BID Veltassa 8.4 gram powder in packet 8.4 g PO .QOD insulin aspart U-100 [Novolog FlexPen U-100 Insulin] 100 unit/mL (3 mL) insulin pen See Rx Instructions .ROUTE .COMPLEX Qty: 15 0RF Rx Instructions: Inject, subcut, 3 times daily, after meals, based on sliding scale provided simvastatin 10 mg tablet 10 mg PO QPM tamsulosin 0.4 mg capsule 0.4 mg PO QPM ipratropium-albuterol 0.5 mg-3 mg(2.5 mg base)/3 mL Solution For Nebulization 3 ml inhalation Q6H PRN (Reason: Shortness Of Breath) Qty: 280 0RF isosorbide mononitrate 30 mg Tablet Extended Release 24 Hr 30 mg PO BID Qty: 60 0RF pantoprazole 40 mg Tablet,Delayed Release (Dr/Ec) 40 mg PO BID Qty: 60 0RF pramipexole 0.25 mg Tablet 0.25 mg PO TID PRN (Reason: Restless Leg Syndrome) Qty: 90 0RF amlodipine 10 mg tablet 10 mg PO QAM gabapentin 300 mg capsule 300 mg PO TID omeprazole 20 mg capsule,delayed release(DR/EC) 20 mg PO QAM metoprolol tartrate 25 mg Tablet 25 mg PO BID@0900,2100 Qty: 120 0RF insulin glargine [Lantus Solostar U-100 Insulin] 100 unit/mL (3 mL) insulin pen 16 unit SUBCUT BID Qty: 10 0RF bumetanide 1 mg Tablet 1.5 mg PO BID Qty: 60 0RF Rx Instructions: AM and NOON Discharge Orders: Discharge ED (Routine); Ordered 07/03/24 Ordered By: Ronaldo Tobias Referrals: Rachel Bills MD [Primary Care Provider] - Discharge Diet: Advance as tolerated Discharge Activity: Resume usual activity Patient Instructions: Heart Failure (ED), Edema (ED) Coding Level of Care Code ED Housecleaner Floor for Josh Gallego
[2024-07-03 17:14] LABS: Alanine Aminotransferase 10 U/L (0-41); Albumin Level 3.3 g/dL (3.5-5.2); Alkaline Phosphatase 142 U/L (40-130); Anion Gap 16.6 (5-19); Aspartate Amino Transferase 17 U/L (0-40); Blood Urea Nitrogen 61 mg/dL (8-23); Calcium 8.2 mg/dL (8.5-10.5); Carbon Dioxide 26 mmol/L (22-29); Chloride 103 mmol/L (98-107); Creatinine Clr Calc Pharmacy 47.4802; Globulin 3.3 g/dL (1.3-4.6); Glomerular Filtration Rate 25.8 mL/min (90-130); Glucose 246 mg/dL (65-115); NT Pro B Type Natriuretic Pept 3974 pg/mL (0-125); Osmolality Calculated 317 mOsm/kg (285-295); Potassium 4.6 mmol/L (3.5-5.1); Sodium 141 mmol/L (136-145); Total Bilirubin 0.2 mg/dL (0.15-1.2); Total Protein 6.6 g/dL (6.6-8.7)
--- NOTE | 2024-07-03 21:15 | PC.NURSE ---
This nurse gave Sharee at [facility] update on patient discharge status and that he is waiting on ambulance ride back to facility.
== END 2024-07-03 23:01 | disposition home or self-care (01) ==
PROVIDERS: Emergency Provider Emergency Medicine; PCP Family Medicine
DX: M79.89 Other specified soft tissue disorders (principal); I50.9 Heart failure, unspecified; Z79.4 Long term (current) use of insulin; E11.9 Type 2 diabetes mellitus without complications; F17.210 Nicotine dependence, cigarettes, uncomplicated
CPT/HCPCS: 71045; 80053; 83880; 85025; 93971; 96374; 99284; J1940

== ENCOUNTER 2024-07-08 12:04 | Inpatient (IN) | payer MEDICARE, MEDICAID, SELFPAY ==
[2024-07-08] VITALS (76 sets, daily range): BP systolic 175–229; BP diastolic 69–160; PULSE 63–91; RESP 14–33; TEMP 36.2–36.8; O2SAT 90–100; BMI 50.8
--- NOTE | 2024-07-08 12:10 | ECG_ITS ---
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 Measurements Intervals [place] Rate: 81 P: 94 [place]: 213 QRS: 46 QRSD: 109 T: 74 QT: 380 QTc: 441 Interpretive Statements SINUS RHYTHM WITH FIRST DEGREE AV BLOCK MINIMAL ST DEPRESSION [0.025+ mV ST DEPRESSION] Compared to ECG 06/23/2024 11:43:27 First degree AV block now present Atrial fibrillation no longer present Intraventricular conduction delay no longer present ST (T wave) deviation still present Electronically Signed On 07-09-2024 21:58:48 AGRICULTURAL EQUIPMENT SALES MANAGER by Bora Gómez M.D. [email or web address] [id number]
--- NOTE | 2024-07-08 12:10 | XR_ITS ---
WS: [id number] Portable AP upright chest, 07/08/2024 Clinical Data: sob Comparison: Portable chest, 07/03/2024 Findings: Minimal bilateral basilar opacities remain the same. No nodules, masses or effusions are seen. The heart is enlarged. The pulmonary vascularity is not increased. No pneumonia or pneumothorax is seen. The aortic arch shows mild calcification. Monitor leads are on the chest wall. There is osteoarthritis of the right shoulder joint. XR/XR chest 1V portable [id number] Impression: Cardiomegaly and atherosclerosis.
--- NOTE | 2024-07-08 12:16 | W.ED.SOB ---
HPI - SOB/Dyspnea General: Chief Complaint: Shortness of Breath/Dyspnea Stated Complaint: SOB Time Seen by Provider: 07/08/24 12:05 Source: patient and EMS Mode of arrival: EMS Limitations: no limitations History of Present Illness: HPI Narrative: 69-year-old male who has history of COPD along with CHF states that over the last 2 days been having increasing cough congestion along with shortness of breath he wears 4 L oxygen baseline he states that he has been on CPAP there due to hypoxia. He denies any known fevers denies any pain has had some increased swelling to extremities Associated symptoms: Deny abdominal pain, chest pain, fever(s), nausea or vomiting Related Data Home Medications ?Medication ?Instructions ?Recorded ?Confirmed clonazepam 1 mg tablet 0.5 mg PO BEDTIME PRN Sleep 08/07/21 07/08/24 sertraline 100 mg tablet 100 mg PO QAM 08/07/21 07/08/24 levocetirizine 5 mg tablet 5 mg PO QAM 02/16/22 07/08/24 levothyroxine 25 mcg tablet 25 mcg PO QAM 02/16/22 07/08/24 simvastatin 10 mg tablet 10 mg PO QPM 12/16/23 07/08/24 tamsulosin 0.4 mg capsule 0.4 mg PO QPM 12/16/23 07/08/24 gabapentin 300 mg capsule 300 mg PO TID 05/19/24 07/08/24 omeprazole 20 mg capsule,delayed 20 mg PO BID 05/19/24 07/08/24 release ferrous sulfate 325 mg (65 mg See Rx Instructions .Route .COMPLEX 06/23/24 07/08/24 iron) tablet hydralazine 100 mg tablet 100 mg PO TID 06/23/24 07/08/24 patiromer calcium sorbitex 8.4 8.4 g PO .QOD 06/23/24 07/08/24 gram oral powder packet (Veltassa) trazodone 150 mg tablet 150 mg PO BEDTIME 06/23/24 07/08/24 acetaminophen 325 mg tablet 650 mg PO Q6H PRN Pain 07/08/24 07/08/24 (Tylenol) bisacodyl 10 mg rectal suppository 10 mg LA DAILY PRN Constipation 07/08/24 07/08/24 (Dulcolax (bisacodyl)) insulin aspart U-100 100 unit/mL 8 unit SUBCUT .WITH MEALS 07/08/24 07/08/24 (3 mL) subcutaneous pen insulin aspart U-100 100 unit/mL See Rx Instructions .Route .COMPLEX 07/08/24 07/08/24 (3 mL) subcutaneous pen insulin glargine 100 unit/mL (3 20 unit SUBCUT BID 07/08/24 07/08/24 mL) subcutaneous pen (Lantus Solostar U-100 Insulin) nystatin 100,000 unit/gram topical 1 applic topical BID 07/08/24 07/08/24 powder Previous Rx's ?Medication ?Instructions ?Recorded ipratropium 0.5 mg-albuterol 3 mg 3 ml inhalation Q6H PRN Shortness 12/19/23 (2.5 mg base)/3 mL nebulization Of Breath #280 mL soln isosorbide mononitrate 30 mg 30 mg PO BID #60 tabs 12/19/23 tablet,extended release 24 hr pramipexole 0.25 mg tablet 0.25 mg PO TID PRN Restless Leg 12/19/23 Syndrome #90 tabs bumetanide 1 mg tablet 1.5 mg (1.5 x 1 mg) PO BID #60 tabs 05/22/24 metoprolol tartrate 25 mg tablet 25 mg PO BID@0900,2100 #120 tabs 05/22/24 Allergies Allergy/AdvReac Type Severity Reaction Status Date / Time No Known Allergies Allergy Verified 07/03/24 16:20 Review of Systems Const: Denies: fever(s), chills, body aches or change in appetite ENMT: Denies: throat pain or dental pain Card: Denies: chest pain Resp: Reports: dyspnea and non-productive cough GI: Denies: abdominal pain, nausea, vomiting or diarrhea Musc: Reports: extremity swelling; Denies: neck pain or back pain Skin/Breast: Denies: rash Neuro: Denies: headache(s) PFSH ED PFSH: Medical History Pneumonia Anemia Acute hyperkalemia Hypotension Hypochromic microcytic anemia Anxiety and depression Normocytic anemia Heart failure Atrial flutter Respiratory failure Iron deficiency anemia Brain aneurysm Necrotizing fasciitis of shoulder region Diabetes Surgical History Status post colonoscopy (10/18/21) H/O esophagogastroduodenoscopy (10/18/21) History of shoulder surgery Family History Grandfather Clotting disorder Family/Other CAD (coronary artery disease) Cancer Diabetes Stroke Grandmother CAD (coronary artery disease) Dementia Father Cancer Lung disease Mother Cancer Denies family history of Chronic kidney disease (CKD) Suicide Anesthesia complication Bleeding disorder Social History Smoking and tobacco/nicotine status: current every day tobacco/nicotine user (1 ppd, smoked x 50 years) cigarettes Packs smoked per day: 2 Years cigarettes smoked: 50 [ Other cigarette details: started at age 16] Alcohol intake: never Substance/Drug Use: never Physical Exam Const: COMMON NORMALS: patient oriented x3 HENMT: COMMON NORMALS: normocephalic and atraumatic HEAD & SCALP: normocephalic and atraumatic Eye: COMMON NORMALS: Equal, round and reactive pupils present and EOMs intact bilaterally PUPIL: Yes Equal, round and reactive pupils present Neck/C-Spine: COMMON NORMALS: full ROM and supple Chest: COMMONS NORMALS: normal inspection of the chest Resp: COMMON NORMALS: No retractions and No use of accessory muscles EFFORT & INSPECTION: Yes respiratory distress and Yes labored AUSCULTATION: rales Cardio: COMMON NORMALS: regular rate, regular rhythm and No murmurs present (Cardio) RATE: regular rate RHYTHM: regular rhythm GI: COMMON NORMALS: Normal to inspection, nondistended, normoactive bowel sounds present, Soft to palpation, non-tender and no masses PALPATION: Yes Soft to palpation Extremity: COMMON NORMALS: full ROM NARRATIVE EXTREMITY EXAM: 2+edema Neuro: COMMON NORMALS: patient oriented x3, moves all extremities and no focal motor deficits Psych: COMMON NORMALS: mental status grossly normal, Normal thought process present and cooperative THOUGHT PROCESS: Normal thought process present Skin: COMMON NORMALS: no rashes or lesions noted and no wounds GENERAL SKIN EXAM: no rashes or lesions noted Course Vital Signs: Vital signs: Vital Signs Temperature 98.3 F 07/08/24 12:05 Pulse Rate 71 07/08/24 14:10 Respiratory Rate 24 H 07/08/24 14:05 Blood Pressure 175/69 07/08/24 12:05 Pulse Oximetry 98 07/08/24 14:08 Oxygen Delivery Me thod BiPAP 07/08/24 14:05 Fraction of Inspir ed Oxygen 45 07/08/24 14:08 MDM - SOB/Dyspnea Medical Decision Making Patient presents here with shortness of breath he was hypercapnic hypoxic did place him on BiPAP he is improved on BiPAP he also has some anemia we will transfuse him I did give him Lasix I spoke to the hospitalist will admit to ICU at this time Medical Records I reviewed the patient's medical records. Lab Data I reviewed the patient's lab results. 07/08/24 12:50 07/08/24 12:50 Labs/Radiology: Radiology Impressions Chest X-Ray 07/08/24 12:10 Impression: Cardiomegaly and atherosclerosis. Laboratory Results WBC 6.22 10^3/uL (3.29-11.43) 07/08/24 12:50 RBC 2.24 10^6/uL (3.85-5.65) L 07/08/24 12:50 Hgb 6.20 g/dL (11.27-16.99) L* 07/08/24 12:50 Hct 21.4 % (37-53) L 07/08/24 12:50 MCV 95.5 fl (82-101) 07/08/24 12:50 MCH 27.7 pg (27-33) 07/08/24 12:50 MCHC 29.0 g/dL (30-55) L 07/08/24 12:50 RDW 13.4 % (12.1-15.1) 07/08/24 12:50 Plt Count 164 10^3/cmm (157-399) 07/08/24 12:50 MPV 10.0 fL (7.4-10.4) 07/08/24 12:50 Neut % (Auto) 74.9 % 07/08/24 12:50 Lymph % (Auto) 8.0 % 07/08/24 12:50 [place] % (Auto) 15.8 % 07/08/24 12:50 Eos % (Auto) 0.2 % 07/08/24 12:50 Baso % (Auto) 0.3 % 07/08/24 12:50 Neut # (Auto) 4.66 10^3/uL (1.8-7.7) 07/08/24 12:50 Lymph # (Auto) 0.5 10^3/uL (0.8-4.8) L 07/08/24 12:50 [place] # (Auto) 1.0 10^3/uL (0.2-0.9) H 07/08/24 12:50 Eos # (Auto) 0.0 10^3/uL (0.0-0.8) 07/08/24 12:50 Baso # (Auto) 0.0 10^3/uL (0.0-0.1) 07/08/24 12:50 Nucleated RBC % (auto) 0 % 07/08/24 12:50 Nucleated RBCs # 0.0 /100WBC 07/08/24 12:50 PT 16.40 SECONDS (12.1-14.9) H 07/08/24 12:50 INR 1.23 (0.8-1.2) H 07/08/24 12:50 Specimen Type Arterial 07/08/24 12:19 Sample Site Radial, left 07/08/24 12:19 ABG pH 7.28 (7.35-7.45) L 07/08/24 12:19 ABG pCO2 65.5 mmHg (35-45) H* 07/08/24 12:19 ABG pO2 219.0 mmHg (80.0-100.0) H 07/08/24 12:19 ABG PO2/FiO2 Ratio 219 07/08/24 12:19 ABG HCO3 30.9 mmol/L (22-26) H 07/08/24 12:19 ABG Base Excess 3.6 mmol/L (-2.0-2.0) H 07/08/24 12:19 Matthew Test Pos 07/08/24 12:19 Hematocrit 20.8 % (42-52) L 07/08/24 12:19 Hgb O2 Saturation 98.1 % (95-100) 07/08/24 12:19 Carboxyhemoglobin 1.7 %THgb (0.4-20.1) 07/08/24 12:19 Methemoglobin 0.5 % (0.4-1.5) 07/08/24 12:19 Total Hemoglobin 6.8 g/dL (14-18) L 07/08/24 12:19 O2 Delivery Device Nrb 07/08/24 12:19 O2 Liters/Min 13.0 % 07/08/24 12:19 FiO2 100.0 % 07/08/24 12:19 [place] ID [place] 07/08/24 12:19 Sodium 137 mmol/L (136-145) 07/08/24 12:50 Potassium 4.3 mmol/L (3.5-5.1) 07/08/24 12:50 Chloride 99 mmol/L (98-107) 07/08/24 12:50 Carbon Dioxide 28 mmol/L (22-29) 07/08/24 12:50 Anion Gap 14.3 (5-19) 07/08/24 12:50 BUN 51 mg/dL (8-23) H 07/08/24 12:50 Creatinine 2.7 mg/dL (0.7-1.2) H 07/08/24 12:50 GFR Calculation 23.5 mL/min (90-130) L 07/08/24 12:50 Glucose 191 mg/dL (65-115) H 07/08/24 12:50 Calculated Osmolality 303 mOsm/kg (285-295) H 07/08/24 12:50 Calcium 8.3 mg/dL (8.5-10.5) L 07/08/24 12:50 Total Bilirubin 0.2 mg/dL (0.15-1.2) 07/08/24 12:50 AST 23 U/L (0-40) 07/08/24 12:50 ALT 10 U/L (0-41) 07/08/24 12:50 Alkaline Phosphatase 122 U/L (40-130) 07/08/24 12:50 NT-Pro-B Natriuret Pep 8669 pg/mL (0-125) H 07/08/24 12:50 Total Protein 6.7 g/dL (6.6-8.7) 07/08/24 12:50 Albumin 3.3 g/dL (3.5-5.2) L 07/08/24 12:50 Globulin 3.4 g/dL (1.3-4.6) 07/08/24 12:50 Coronavirus (PCR) Negative (Negative) 07/08/24 12:27 Influenza A (PCR) Positive (Negative) 07/08/24 12:27 Influenza Type B (PCR) Negative (Negative) 07/08/24 12:27 RSV (PCR) Negative (Negative) 07/08/24 12:27 All radiology interpretation(s) finalized by discharge EKG Data EKG 1: I personally reviewed and interpreted this EKG as follows: EKG Interpretation Date: 07/08/24 EKG interpretation time: 12:10 Interpretation: nsr hr [address] or t wave abnormalities qrs 109 qtc 417 Critical Care Time Critical Care Time: Critical Care Time: Yes Total Critical Care Time: 45 Attestation: The high probability of a clinically significant, sudden or life threatening deterioration of the patient's resp system(s) required my full and direct attention, intervention and personal management. The critical care time is as shown. This time is in addition to time spent performing any reported procedures but includes the following: [x] Data and vital sign review and interpretation [x] Patient assessment, examination and intervention [x] Documentation [x] Medication orders and management Discharge Plan Discharge Patient Disposition: Admitted As Inpatient Clinical Impression: Influenza A, Anemia, Acute respiratory failure with hypoxia and hypercapnia Condition: Stable Prescriptions: No Action sertraline 100 mg tablet 100 mg PO QAM clonazepam 1 mg tablet 0.5 mg PO BEDTIME PRN (Reason: Sleep) levothyroxine 25 mcg tablet 25 mcg PO QAM levocetirizine 5 mg tablet 5 mg PO QAM hydralazine 100 mg tablet 100 mg PO TID trazodone 150 mg tablet 150 mg PO BEDTIME ferrous sulfate 325 mg (65 mg iron) tablet See Rx Instructions .ROUTE .COMPLEX Rx Instructions: take 1 tablet by mouth every other day Veltassa 8.4 gram powder in packet 8.4 g PO .QOD acetaminophen [Tylenol] 325 mg Tablet 650 mg PO Q6H PRN (Reason: Pain) bisacodyl [Dulcolax (bisacodyl)] 10 mg Suppository 10 mg LA DAILY PRN (Reason: Constipation) nystatin 100,000 unit/gram Powder 1 applic TOPICAL BID insulin aspart U-100 100 unit/mL (3 mL) Insulin Pen See Rx Instructions .ROUTE .COMPLEX Rx Instructions: per sliding scale subcut BEFORE MEALS and at bedtime if blood sugar is: 201-250=2 251-300=4 301-350=6 351-400=8 if over 400 call insulin aspart U-100 100 unit/mL (3 mL) Insulin Pen 8 unit SUBCUT .WITH MEALS insulin glargine [Lantus Solostar U-100 Insulin] 100 unit/mL (3 mL) insulin pen 20 unit SUBCUT BID simvastatin 10 mg tablet 10 mg PO QPM tamsulosin 0.4 mg capsule 0.4 mg PO QPM ipratropium-albuterol 0.5 mg-3 mg(2.5 mg base)/3 mL Solution For Nebulization 3 ml inhalation Q6H PRN (Reason: Shortness Of Breath) Qty: 280 0RF isosorbide mononitrate 30 mg Tablet Extended Release 24 Hr 30 mg PO BID Qty: 60 0RF pramipexole 0.25 mg Tablet 0.25 mg PO TID PRN (Reason: Restless Leg Syndrome) Qty: 90 0RF gabapentin 300 mg capsule 300 mg PO TID omeprazole 20 mg capsule,delayed release(DR/EC) 20 mg PO BID metoprolol tartrate 25 mg Tablet 25 mg PO BID@0900,2100 Qty: 120 0RF bumetanide 1 mg Tablet 1.5 mg PO BID Qty: 60 0RF Rx Instructions: AM and NOON Referrals: Rachel Bills MD [Primary Care Provider] - Print Language: Syriac Coding Level of Care Code ED Crossbow Maker for Josh Gallego
[2024-07-08 12:31] LABS: ABG PH Result 7.28 (7.35-7.45); Arterial Blood Gas Hematocrit 20.8 % (42-52); Base Excess ABG 3.6 mmol/L (-2.0-2.0); Blood Gas Allen Test Pos; Blood Gas Operator Identificat MONRO; Blood Gas Sample Site Radial, left; Blood Gas Sample Type Arterial; Carboxyhemoglobin 1.7 %THgb (0.4-20.1); HCO3 ABG 30.9 mmol/L (22-26); HGB O2 Sat 98.1 % (95-100); Methemoglobin 0.5 % (0.4-1.5); Oxygen Device NRB; PO2 FiO2 Ratio Arterial Blood 219; Total Hemoglobin 6.8 g/dL (14-18)
[2024-07-08 12:32] LABS: ABG PCO2 65.5 mmHg (35-45)
--- NOTE | 2024-07-08 12:39 | PC.PHAR ---
Patient is from [facility]
[2024-07-08] MEDS: methylPREDNISolone sod succ 125 mg/2 mL INJ IV (12:45)
[2024-07-08] MEDS: FUROsemide 10 mg/mL SDV 10mL 60 MG IVP (12:45)
[2024-07-08 13:03] LABS: Basophils % 0.3 %; Eosinophils % 0.2 %; Hematocrit 21.4 % (37-53); Lymphocytes # 0.5 10^3/uL (0.8-4.8); Mean Corpuscular Hemoglobin 27.7 pg (27-33); Mean Corpuscular Volume 95.5 fl (82-101); Monocytes % 15.8 %; Neutrophils # 4.66 10^3/uL (1.8-7.7); Neutrophils % 74.9 %; Nucleated Red Blood Cells % 0 %; Platelet Count 164 10^3/cmm (157-399); Red Blood Count 2.24 10^6/uL (3.85-5.65); Red Cell Distribution Width 13.4 % (12.1-15.1); White Blood Count 6.22 10^3/uL (3.29-11.43)
[2024-07-08 13:14] LABS: INR 1.23 (0.8-1.2)
[2024-07-08 13:29] LABS: Alanine Aminotransferase 10 U/L (0-41); Albumin Level 3.3 g/dL (3.5-5.2); Alkaline Phosphatase 122 U/L (40-130); Anion Gap 14.3 (5-19); Aspartate Amino Transferase 23 U/L (0-40); Blood Urea Nitrogen 51 mg/dL (8-23); Calcium 8.3 mg/dL (8.5-10.5); Carbon Dioxide 28 mmol/L (22-29); Chloride 99 mmol/L (98-107); Creatinine Clr Calc Pharmacy 43.3525; Globulin 3.4 g/dL (1.3-4.6); Glomerular Filtration Rate 23.5 mL/min (90-130); Glucose 191 mg/dL (65-115); NT Pro B Type Natriuretic Pept 8669 pg/mL (0-125); Osmolality Calculated 303 mOsm/kg (285-295); Potassium 4.3 mmol/L (3.5-5.1); Sodium 137 mmol/L (136-145); Total Bilirubin 0.2 mg/dL (0.15-1.2); Total Protein 6.7 g/dL (6.6-8.7)
[2024-07-08 13:36] LABS: Influenza A POSITIVE (Negative); Influenza B NEGATIVE (Negative); Respiratory Syncytial Virus Ce NEGATIVE (Negative); SARS-CoV-2 PCR NEGATIVE (Negative)
[2024-07-08] MEDS: ipratropium-albuterol 3 mL Neb INHALATION (14:05)
--- NOTE | 2024-07-08 14:36 | PC.NURSE ---
RT got this nurse states that pt was bleeding, entering room, pt noted to have a skin tear to right outer forearm, unsure of what caused skin tear, possibly the bed rail. area cleansed, pat dry and placed gauze over area and wrapped with coban.
--- NOTE | 2024-07-08 15:20 | PC.NURSE ---
[facility] called, spoke to angelina Coulter, given update that pt is being admitted to hospital.
--- NOTE | 2024-07-08 15:46 | PM.HP ---
Providers/Chief Complaint Primary Care Provider: Rachel Bills MD Chief Complaint: SOB History of Present Illness Juan Thomas is a 69 year old male with a past medical history of COPD, obesity hypoventilation syndrome, on Bi[facility] at [facility] chronic anemia, hypertension hyperlipidemia, type 2 diabetes, hypertension who presents to [facility] for complaints of shortness of breath. Currently patient is alert to person, to place not to time, follows all commands on BiPAP, in mild to moderate respiratory distress nasal flaring, intercostal retraction suprasternal retractions, tachypnea, tachycardia, short of breath with a few words. Family member at bedside, valvular at bedside tells me that other residents at [facility] had been sick with viral infection. Patient reports increased shortness of breath for the last day subjective fevers and chills during the night increased lower extremity edema, does have a cough, congestion, no chest pain, no palpitations, no abdominal pain, he was supposed to receive iron infusions today, denies bloody or black stools, Review of Systems Const: Reports: chills; Denies: fever(s) Card: Denies: chest pain Resp: Reports: dyspnea and productive cough GI: Denies: abdominal pain Neuro: Denies: headache(s) Medications/Allergies Home Medications ?Medication ?Instructions ?Recorded ?Confirmed ?Last Taken ?Type clonazepam 1 mg tablet 0.5 mg PO BEDTIME PRN Sleep 08/07/21 07/08/24 07/06/24 History sertraline 100 mg tablet 100 mg PO QAM 08/07/21 07/08/24 07/08/24 History levocetirizine 5 mg tablet 5 mg PO QAM 02/16/22 07/08/24 07/08/24 History levothyroxine 25 mcg tablet 25 mcg PO QAM 02/16/22 07/08/24 07/08/24 History simvastatin 10 mg tablet 10 mg PO QPM 12/16/23 07/08/24 07/07/24 History tamsulosin 0.4 mg capsule 0.4 mg PO QPM 12/16/23 07/08/24 07/07/24 History ipratropium 0.5 mg-albuterol 3 mg 3 ml inhalation Q6H PRN Shortness 12/19/23 07/08/24 07/02/24 Rx (2.5 mg base)/3 mL nebulization Of Breath #280 mL soln isosorbide mononitrate 30 mg 30 mg PO BID #60 tabs 12/19/23 07/08/24 07/08/24 Rx tablet,extended release 24 hr pramipexole 0.25 mg tablet 0.25 mg PO TID PRN Restless Leg 12/19/23 07/08/24 07/08/24 Rx Syndrome #90 tabs gabapentin 300 mg capsule 300 mg PO TID 05/19/24 07/08/24 07/08/24 History omeprazole 20 mg capsule,delayed 20 mg PO BID 05/19/24 07/08/24 07/08/24 History release bumetanide 1 mg tablet 1.5 mg (1.5 x 1 mg) PO BID #60 tabs 05/22/24 07/08/24 07/08/24 Rx metoprolol tartrate 25 mg tablet 25 mg PO BID@0900,2100 #120 tabs 05/22/24 07/08/24 07/08/24 Rx ferrous sulfate 325 mg (65 mg See Rx Instructions .Route .COMPLEX 06/23/24 07/08/24 07/08/24 History iron) tablet hydralazine 100 mg tablet 100 mg PO TID 06/23/24 07/08/24 07/08/24 History patiromer calcium sorbitex 8.4 8.4 g PO .QOD 06/23/24 07/08/24 06/21/24 History gram oral powder packet (Veltassa) trazodone 150 mg tablet 150 mg PO BEDTIME 06/23/24 07/08/24 07/07/24 History acetaminophen 325 mg tablet 650 mg PO Q6H PRN Pain 07/08/24 07/08/24 07/08/24 History (Tylenol) bisacodyl 10 mg rectal suppository 10 mg VA DAILY PRN Constipation 07/08/24 07/08/24 Unknown History (Dulcolax (bisacodyl)) insulin aspart U-100 100 unit/mL 8 unit SUBCUT .WITH MEALS 07/08/24 07/08/24 07/08/24 History (3 mL) subcutaneous pen insulin aspart U-100 100 unit/mL See Rx Instructions .Route .COMPLEX 07/08/24 07/08/24 07/07/24 History (3 mL) subcutaneous pen insulin glargine 100 unit/mL (3 20 unit SUBCUT BID 07/08/24 07/08/24 07/08/24 History mL) subcutaneous pen (Lantus Solostar U-100 Insulin) nystatin 100,000 unit/gram topical 1 applic topical BID 07/08/24 07/08/24 07/07/24 History powder Allergies Allergy/AdvReac Type Severity Reaction Status Date / Time No Known Allergies Allergy Verified 07/03/24 16:20 PFSH Acute PFSH: Medical History Pneumonia Anemia Acute hyperkalemia Hypotension Hypochromic microcytic anemia Anxiety and depression Normocytic anemia Heart failure Atrial flutter Respiratory failure Iron deficiency anemia Brain aneurysm Necrotizing fasciitis of shoulder region Diabetes Surgical History Status post colonoscopy (10/18/21) H/O esophagogastroduodenoscopy (10/18/21) History of shoulder surgery Family History Grandfather Clotting disorder Family/Other CAD (coronary artery disease) Cancer Diabetes Stroke Grandmother CAD (coronary artery disease) Dementia Father Cancer Lung disease Mother Cancer Denies family history of Chronic kidney disease (CKD) Suicide Anesthesia complication Bleeding disorder Social History Smoking and tobacco/nicotine status: current every day tobacco/nicotine user (1 ppd, smoked x 50 years) cigarettes Packs smoked per day: 2 Years cigarettes smoked: 50 [ Other cigarette details: started at age 16] Alcohol intake: never Substance/Drug Use: never Vitals/I&O/Wt Last Vital Signs Temp 98.3 F 07/08/24 12:05 Pulse 75 07/08/24 15:00 Resp 20 H 07/08/24 15:00 BP 175/69 07/08/24 12:05 Pulse Ox 98 07/08/24 15:00 O2 Del Method BiPAP 07/08/24 15:00 FiO2 45 07/08/24 14:08 Weight last 48 hrs Weight 176.901 kg Physical Exam Const: COMMON NORMALS: no acute distress ORIENTATION/CONSCIOUSNESS: Yes awake, Yes oriented to person and Yes oriented to place; not oriented to time Eye: COMMON NORMALS: Equal, round and reactive pupils present and EOMs intact bilaterally Resp: OTHER: Tachypnea, tachycardia, nasal flaring intercostal retractions suprasternal retractions diffuse wheezing, short of breath with a few words mild to moderate respiratory distress Cardio: COMMON NORMALS: regular rate, regular rhythm, S1 normal heart sound present and S2 normal heart sound present RATE: regular rate RHYTHM: regular rhythm HEART SOUNDS: S1 normal heart sound present and S2 normal heart sound present GI: COMMON NORMALS: Normal to inspection, nondistended, normoactive bowel sounds present, Soft to palpation and non-tender Extremity: NARRATIVE EXTREMITY EXAM: 1+Edema Neuro: COMMON NORMALS: patient oriented x3, CN's II-XII intact bilaterally and moves all extremities Psych: COMMON NORMALS: mental status grossly normal Urinary Catheter Management: Briceño: Cath Placed During This Visit: yes Urinary Catheter Date of Insertion: 07/08/24 Urinary Catheter Time of Insertion: 13:00 Sepsis: Is patient septic: Yes Focused sepsis exam performed: Yes Date exam was performed: 07/08/24 Time exam was performed: 15:49 Data 07/08/24 12:50 07/08/24 12:50 Micro: Microbiology 07/08/24 12:50 Blood Culture - Preliminary Blood SPECIMEN COLLECTED 07/08/24 12:32 Blood Culture - Preliminary Blood SPECIMEN COLLECTED A&P Assessment and plan (1) Acute hypoxic respiratory failure: (2) Influenza A: (3) Heart failure with preserved ejection fraction: (4) HTN (hypertension): (5) Diabetes mellitus type 2, uncontrolled, with complications: (6) Acquired hypothyroidism: (7) Anemia: (8) Acute on chronic respiratory failure with hypoxia and hypercapnia: (9) Sepsis: Plan Acute hypoxic hypercarbic respiratory failure -Secondary to influenza A pneumonia -Secondary to CHF exacerbation -With underlying diastolic CHF -With underlying obesity hypoventilation syndrome Plan -Admit to ICU given mild to moderate respiratory distress -Continue BiPAP therapy -Received 60 mg of IV Lasix in emergency room, 40 mg IV twice daily -Place Briceño catheter -Monitor urine output, monitor creatinine monitor potassium -Tamiflu 75 mg p.o. once, followed by 30 mg twice daily -Pro-Sylvester, CRP, blood cultures, sputum cultures Sepsis -Sepsis features met given influenza A, respiratory failure, moncho MONCHO on CKD -Creatinine 2.7, monitor urine output monitor creatinine Acute on chronic anemia -Check iron levels, ferritin, -Will receive 2 units PRBC Diastolic CHF -Diuresis as above Influenza A pneumonia, placed under isolation PDMP PDMP Reviewed: Not Reviewed Attestations Medical Necessity Statement*: Patient requires hospitalization, inpatient, greater than 2 midnights for acute hypoxic respiratory failure secondary to influenza A, CHF, acute anemia, CKD, hypercarbia, acute anemia, sepsis Diagnoses Acute hypoxic respiratory failure J96.01 Influenza A J10.1 Heart failure with preserved ejection fraction I50.30 HTN (hypertension) I10 Diabetes mellitus type 2, uncontrolled, with complications Acquired hypothyroidism E03.9 Anemia D64.9 Acute on chronic respiratory failure with hypoxia and hypercapnia J96.21; J96.22 Sepsis A41.9
[2024-07-08 16:16] LABS: Ferritin 151 ng/mL (30-400); Iron 45 ug/dL (59-158)
[2024-07-08 16:23] LABS: Procalcitonin 0.18 ng/mL (0-0.5)
[2024-07-08] MEDS: sodium chloride 0.9% 100 mL Bag 50 ML IV ×2 (17:45→22:45)
[2024-07-08] MEDS: hyDRALAzine 50 mg Tablet 100 MG PO (20:01)
[2024-07-08 22:30] LABS: Chol HDL Ratio 2.37 mg/dL (1.0-5.00); Cholesterol 71 mg/dL (0-200); HDL Cholesterol 30 mg/dL (60-100); LDL Cholesterol Calculated 22 mg/dL (50-129); LDL HDL Ratio 0.73 RATIO (0.00-3.22); Triglycerides 95 mg/dL (0-150)
[2024-07-08 22:54] LABS: Estmated Average Glucose 166; Hemoglobin A1C 7.4 % (4.0-6.0)
[2024-07-08] MEDS: FUROsemide 10 mg/mL SDV 4mL 40 MG IVP (23:23)
[2024-07-08] MEDS: trazodone 150 mg Tablet PO (23:24)
[2024-07-08] MEDS: oseltamivir phosphate 75 mg Capsule PO (23:24)
[2024-07-08] MEDS: gabapentin 300 mg Capsule PO (23:24)
[2024-07-08] MEDS: tamsulosin 0.4 mg Capsule PO (23:24)
[2024-07-08] MEDS: isosorbide mononitrate ER 30 mg Tablet PO (23:24)
[2024-07-08] MEDS: metoprolol tartrate 25 mg Tablet PO (23:24)
[2024-07-08] MEDS: pantoprazole 40 mg SDV IVP (23:25)
[2024-07-08] MEDS: sucralfate 1 gm/10 mL Oral Liq UDC PO (23:25)
[2024-07-08] MEDS: insulin glargine 100 units/1 mL 10 UNIT SUBCUT (23:36)
[2024-07-08] MEDS: insulin lispro 100 unit/1 mL SUBCUT (23:38)
[2024-07-08 23:47] LABS: Glucose Point of Care 340 mg/dL (70-110)
[2024-07-09] VITALS (50 sets, daily range): BP systolic 119–215; BP diastolic 65–135; PULSE 63–127; RESP 13–29; TEMP 36.6–37.7; O2SAT 90–96
[2024-07-09 04:19] LABS: Basophils % 0.2 %; Lymphocytes # 0.3 10^3/uL (0.8-4.8); Lymphocytes % 6.2 %; Mean Corpuscular Hemoglobin 28.1 pg (27-33); Mean Corpuscular Volume 93.6 fl (82-101); Mean Platelet Volume 10.3 fL (7.4-10.4); Monocytes # 0.5 10^3/uL (0.2-0.9); Monocytes % 10.1 %; Neutrophils # 4.13 10^3/uL (1.8-7.7); Neutrophils % 81.9 %; Nucleated Red Blood Cells % 0 %; Platelet Count 146 10^3/cmm (157-399); Red Blood Count 2.67 10^6/uL (3.85-5.65); Red Cell Distribution Width 14.6 % (12.1-15.1); White Blood Count 5.04 10^3/uL (3.29-11.43)
[2024-07-09 04:36] LABS: Alanine Aminotransferase 11 U/L (0-41); Albumin Level 3.1 g/dL (3.5-5.2); Alkaline Phosphatase 114 U/L (40-130); Anion Gap 15.5 (5-19); Aspartate Amino Transferase 24 U/L (0-40); Blood Urea Nitrogen 63 mg/dL (8-23); Calcium 8.3 mg/dL (8.5-10.5); Carbon Dioxide 29 mmol/L (22-29); Chloride 100 mmol/L (98-107); Creatinine Clr Calc Pharmacy 40.1041; Globulin 3.7 g/dL (1.3-4.6); Glomerular Filtration Rate 21.7 mL/min (90-130); Glucose 315 mg/dL (65-115); Magnesium 2.3 mg/dL (1.7-2.3); Osmolality Calculated 320 mOsm/kg (285-295); Potassium 4.5 mmol/L (3.5-5.1); Sodium 140 mmol/L (136-145); Total Bilirubin 0.6 mg/dL (0.15-1.2); Total Protein 6.8 g/dL (6.6-8.7)
[2024-07-09] MEDS: levothyroxine 25 mcg Tablet PO (05:31)
[2024-07-09] MEDS: sertraline 100 mg Tablet PO (05:32)
[2024-07-09] MEDS: hyDRALAzine 20 mg/mL INJ 1 mL 10 MG IVP (05:50)
[2024-07-09] MEDS: sucralfate 1 gm/10 mL Oral Liq UDC PO ×4 (05:51→21:28)
--- NOTE | 2024-07-09 07:17 | PC.NURSE ---
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
[2024-07-09 07:32] LABS: Glucose Point of Care 313 mg/dL (70-110)
[2024-07-09 07:54] LABS: Add Urine Microscopic? YES; Bilirubin Urine Neg (Negative); Blood Urine 1+ (Negative); Glucose Urine UA Norm (Normal); Ketones Urine Negative (Negative); Leukocyte Esterase Urine 1+ (Negative); Nitrate Urine Negative (Negative); Protein Urine 2+ (Negative); RBC Urine 21-50 /hpf (0-2); Specific Gravity, Urine 1.013 (1.005-1.030); UA Slide Review UA Slide Review Perf; Urine Appearance Clear (CLEAR); Urine Color Yellow (Yellow); Urobilinogen Urine 0.2 mg/dL (Negative)
[2024-07-09 07:55] LABS: Add Urine Culture? No; Bacteria Urine 1+ /hpf; Hyaline Casts Urine 24.82 /lpf; Squamous Epithelial Cell Urine 0-5 /hpf (0-5); WBC Urine 21-50 /hpf (0-5)
[2024-07-09] MEDS: budesonide 0.5 mg/2 mL Neb INHALATION ×2 (08:06→21:49)
[2024-07-09] MEDS: ipratropium-albuterol 3 mL Neb INHALATION ×4 (08:06→21:50)
[2024-07-09] MEDS: hyDRALAzine 50 mg Tablet 100 MG PO ×3 (08:30→21:30)
[2024-07-09] MEDS: gabapentin 300 mg Capsule PO ×3 (08:30→21:30)
[2024-07-09] MEDS: insulin lispro 100 unit/1 mL SUBCUT ×4 (08:31→21:29)
[2024-07-09] MEDS: isosorbide mononitrate ER 30 mg Tablet PO ×2 (08:31→17:02)
[2024-07-09] MEDS: oseltamivir phosphate 30 mg Capsule PO ×2 (08:31→17:02)
[2024-07-09] MEDS: metoprolol tartrate 25 mg Tablet PO ×2 (08:45→21:30)
[2024-07-09] MEDS: insulin glargine 100 units/1 mL 10 UNIT SUBCUT ×2 (08:57→21:29)
[2024-07-09] MEDS: FUROsemide 10 mg/mL SDV 4mL 40 MG IVP ×2 (08:57→21:28)
[2024-07-09] MEDS: pantoprazole 40 mg SDV IVP ×2 (08:57→21:29)
[2024-07-09 11:27] LABS: Glucose Point of Care 343 mg/dL (70-110)
[2024-07-09] MEDS: nystatin powder 15 gm Btl 1 APPLIC TOPICAL (11:34)
[2024-07-09] MEDS: AZITHROMYCIN ADD-Vantage 500 MG in 0.9% NaCl ADD-Vantage 250 ML 250 MG IV (11:51)
[2024-07-09] MEDS: cefTRIAXone 1,000 mg SDV 1000 MG IVP (11:55)
[2024-07-09] MEDS: metOLazone 5 MG Tablet PO (11:55)
[2024-07-09] MEDS: ferrous sulfate EC 325 mg Tablet PO (11:55)
--- NOTE | 2024-07-09 13:02 | PC.NURSE ---
Report was called to [facility] in med surge. Patient was transferred with all their belongings. Patient was stable during transfer.
[2024-07-09 13:39] LABS: Anion Gap 15.4 (5-19); Blood Urea Nitrogen 62 mg/dL (8-23); Calcium 8.5 mg/dL (8.5-10.5); Carbon Dioxide 27 mmol/L (22-29); Chloride 97 mmol/L (98-107); Creatinine Clr Calc Pharmacy 41.7659; Glomerular Filtration Rate 22.6 mL/min (90-130); Glucose 314 mg/dL (65-115); Osmolality Calculated 310 mOsm/kg (285-295); Potassium 4.4 mmol/L (3.5-5.1); Sodium 135 mmol/L (136-145)
[2024-07-09] MEDS: amlodipine 10 mg Tablet PO (14:48)
--- NOTE | 2024-07-09 15:10 | P.PN_ITS ---
Subjective 2 Subjective: Patient was seen this morning, currently on 5 L, alert oriented x 3, following all commands, he slept well last night shortness of breath is improving does have a cough, Vitals/I&O/Wt Last Vital Signs Temp 98.5 F 07/09/24 13:34 Pulse 83 07/09/24 13:34 Resp 17 07/09/24 13:34 BP 152/77 07/09/24 13:34 Pulse Ox 92 07/09/24 13:34 O2 Del Method Nasal Cannula 07/09/24 13:34 O2 Flow Rate 5 07/09/24 12:30 FiO2 45 07/08/24 20:33 07/09/24 07/09/24 07/09/24 06:59 14:59 22:59 Intake Total 1035 / 1725 250 / 250 Output Total 500 / 1770 550 / 550 Balance 535 / -45 -300 / -300 Weight last 48 hrs Weight 176.629 kg Weight 175 kg Weight 176.901 kg Physical Exam 2 Const: COMMON NORMALS: no acute distress and patient oriented x3 HENMT: COMMON NORMALS: normocephalic HEAD & SCALP: normocephalic Resp: COMMON NORMALS: normal respiratory effort, No retractions and No use of accessory muscles AUSCULTATION: crackles and wheezes Cardio: COMMON NORMALS: regular rate, regular rhythm, S1 normal heart sound present and S2 normal heart sound present RATE: regular rate RHYTHM: r egular rhythm HEART SOUNDS: S1 normal heart sound present and S2 normal heart sound present GI: COMMON NORMALS: Normal to inspection, nondistended, normoactive bowel sounds present and non-tender Extremity: NARRATIVE EXTREMITY EXAM: 1+ edema Neuro: COMMON NORMALS: patient oriented x3 Psych: COMMON NORMALS: mental status grossly normal Urinary Catheter Management: Briceño: Cath Placed During This Visit: yes Reason for Continuing Indwelling Catheter: Accurate Measurement of Urinary Output in Critically Ill Patients Urinary Catheter Date of Insertion: 07/08/24 Urinary Catheter Time of Insertion: 13:00 Data 07/09/24 03:21 07/09/24 13:13 Micro: Microbiology 07/08/24 12:32 Blood Culture - Preliminary Blood NEGATIVE TO DATE 07/08/24 12:50 Blood Culture - Preliminary Blood NEGATIVE TO DATE A&P Assessment and plan (1) Acute hypoxic respiratory failure: (2) Influenza A: (3) Heart failure with preserved ejection fraction: (4) HTN (hypertension): (5) Diabetes mellitus type 2, uncontrolled, with complications: (6) Acquired hypothyroidism: (7) Anemia: (8) Acute on chronic respiratory failure with hypoxia and hypercapnia: (9) Sepsis: Plan Acute hypoxic hypercarbic respiratory failure -Secondary to influenza A pneumonia -Secondary to CHF exacerbation -With underlying diastolic CHF -With underlying obesity hypoventilation syndrome Plan -As respiratory distress is improving will moved to medical floors -Continue BiPAP therapy -40 mg IV twice daily -Place Briceño catheter -Monitor urine output, monitor creatinine monitor potassium -Tamiflu 75 mg p.o. once, followed by 30 mg twice daily -Given elevated CRP productive cough, started on IV antibiotics for secondary bacterial pneumonia, IV Rocephin, Zithromycin -blood cultures, sputum cultures UTI, IV Rocephin Sepsis -Sepsis features met given influenza A, respiratory failure, moncho MONCHO on CKD -Creatinine 2.7, monitor urine output monitor creatinine Acute on chronic anemia -Check iron levels, ferritin, -Status post 2 units PRBC Diastolic CHF -Diuresis as above Influenza A pneumonia, placed under isolation PDMP PDMP Reviewed: Not Reviewed Attestations 2 Medical Necessity Statement*: Patient requires hospitalization for acute hypoxic respiratory failure secondary to influenza, CHF, concerns for secondary bacterial infection, UTI acute anemia Diagnoses Acute hypoxic respiratory failure J96.01 Influenza A J10.1 Heart failure with preserved ejection fraction I50.30 HTN (hypertension) I10 Diabetes mellitus type 2, uncontrolled, with complications Acquired hypothyroidism E03.9 Anemia D64.9 Acute on chronic respiratory failure with hypoxia and hypercapnia J96.21; J96.22 Sepsis A41.9
[2024-07-09 16:19] LABS: Bacillus cereus group Not Detected (NOT DETECT); Bacillus subtillis group Not Detected (NOT DETECT); Corynebacterium Not Detected (NOT DETECT); Cutibacterium acnes (P.acnes) Not Detected (NOT DETECT); Enterococcus Not Detected (NOT DETECT); Enterococcus faecalis Not Detected (NOT DETECT); Enterococcus faecium Not Detected (NOT DETECT); Lactobacillus species Not Detected (NOT DETECT); Listeria Not Detected (NOT DETECT); Listeria monocytogenes Not Detected (NOT DETECT); Micrococcus Not Detected (NOT DETECT); Pan Candida Not Detected (NOT DETECT); Pan Gram-Negative Not Detected (NOT DETECT); Staphylococcus epidermidis Not Detected (NOT DETECT); Staphylococcus lugdunensis Not Detected (NOT DETECT); Streptococcus agalactiae Not Detected (NOT DETECT); Streptococcus anginosus group Not Detected (NOT DETECT); Streptococcus pneumoniae Not Detected (NOT DETECT); Streptococcus pyogenes Not Detected (NOT DETECT); Streptococcus species Not Detected (NOT DETECT); mecC Not Detected (NOT DETECT)
[2024-07-09 16:28] LABS: Glucose Point of Care 294 mg/dL (70-110)
[2024-07-09 16:32] LABS: Staphylococcus species Detected (NOT DETECT); mecA Detected (NOT DETECT)
[2024-07-09] MEDS: atorvastatin 40 mg Tablet 20 MG PO (17:02)
[2024-07-09] MEDS: tamsulosin 0.4 mg Capsule PO (17:02)
[2024-07-09 21:12] LABS: Glucose Point of Care 253 mg/dL (70-110)
[2024-07-09] MEDS: trazodone 100 mg Tablet 150 MG PO (21:30)
[2024-07-09] MEDS: nicotine 14 mg Patch 1 PATCH TRANSDERMA (22:41)
[2024-07-10] VITALS (12 sets, daily range): BP systolic 121–170; BP diastolic 57–79; PULSE 71–83; RESP 18–20; TEMP 36.5–36.8; O2SAT 90–96
--- NOTE | 2024-07-10 02:52 | PC.NURSE ---
Patient requested nicotine patch while nurse was administering bedtime medications. Nurse contacted Dr. Rodriguez to advise him of patients request. Order was placed and nurse administered 14 mg transdermal nicotine patch.
[2024-07-10 05:48] LABS: Basophils % 0.3 %; Eosinophils % 0.3 %; Hematocrit 25.5 % (37-53); Lymphocytes # 0.8 10^3/uL (0.8-4.8); Lymphocytes % 11.2 %; Mean Corpuscular HGB Conc 30.6 g/dL (30-55); Mean Corpuscular Hemoglobin 27.7 pg (27-33); Mean Corpuscular Volume 90.4 fl (82-101); Mean Platelet Volume 10.1 fL (7.4-10.4); Monocytes # 0.9 10^3/uL (0.2-0.9); Monocytes % 11.3 %; Neutrophils # 5.75 10^3/uL (1.8-7.7); Neutrophils % 76.2 %; Nucleated Red Blood Cells % 0 %; Platelet Count 163 10^3/cmm (157-399); Red Blood Count 2.82 10^6/uL (3.85-5.65); Red Cell Distribution Width 14.3 % (12.1-15.1); White Blood Count 7.53 10^3/uL (3.29-11.43)
[2024-07-10] MEDS: sertraline 100 mg Tablet PO (06:04)
[2024-07-10] MEDS: levothyroxine 25 mcg Tablet PO (06:04)
[2024-07-10] MEDS: sucralfate 1 gm/10 mL Oral Liq UDC PO ×4 (06:05→20:50)
[2024-07-10 06:08] LABS: Alanine Aminotransferase 13 U/L (0-41); Albumin Level 3.1 g/dL (3.5-5.2); Alkaline Phosphatase 105 U/L (40-130); Aspartate Amino Transferase 26 U/L (0-40); Blood Urea Nitrogen 73 mg/dL (8-23); Calcium 8.2 mg/dL (8.5-10.5); Carbon Dioxide 28 mmol/L (22-29); Chloride 97 mmol/L (98-107); Creatinine Clr Calc Pharmacy 36.5452; Globulin 3.5 g/dL (1.3-4.6); Glomerular Filtration Rate 19.4 mL/min (90-130); Glucose 152 mg/dL (65-115); Magnesium 2.2 mg/dL (1.7-2.3); Osmolality Calculated 309 mOsm/kg (285-295); Phosphorus 4.4 mg/dL (2.5-4.5); Sodium 137 mmol/L (136-145); Total Bilirubin 0.2 mg/dL (0.15-1.2); Total Protein 6.6 g/dL (6.6-8.7)
[2024-07-10 06:28] LABS: Glucose Point of Care 172 mg/dL (70-110)
[2024-07-10] MEDS: ipratropium-albuterol 3 mL Neb INHALATION ×4 (08:30→20:47)
[2024-07-10] MEDS: budesonide 0.5 mg/2 mL Neb INHALATION ×2 (08:30→20:48)
[2024-07-10] MEDS: pantoprazole 40 mg SDV IVP ×2 (08:51→20:49)
[2024-07-10] MEDS: oseltamivir phosphate 30 mg Capsule PO ×2 (08:52→18:00)
[2024-07-10] MEDS: nystatin powder 15 gm Btl 1 APPLIC TOPICAL ×2 (08:52→18:00)
[2024-07-10] MEDS: gabapentin 300 mg Capsule PO ×3 (08:53→20:49)
[2024-07-10] MEDS: isosorbide mononitrate ER 30 mg Tablet PO ×2 (08:53→18:00)
[2024-07-10] MEDS: insulin lispro 100 unit/1 mL SUBCUT ×4 (08:53→22:54)
[2024-07-10] MEDS: hyDRALAzine 50 mg Tablet 100 MG PO ×3 (08:53→20:49)
[2024-07-10] MEDS: metoprolol tartrate 25 mg Tablet PO ×2 (08:59→20:49)
[2024-07-10] MEDS: insulin glargine 100 units/1 mL 10 UNIT SUBCUT ×2 (09:33→20:50)
[2024-07-10 10:47] LABS: Glucose Point of Care 256 mg/dL (70-110)
[2024-07-10] MEDS: AZITHROMYCIN ADD-Vantage 500 MG in 0.9% NaCl ADD-Vantage 250 ML 250 MG IV (11:37)
[2024-07-10] MEDS: cefTRIAXone 1,000 mg SDV 1000 MG IVP (11:38)
--- NOTE | 2024-07-10 11:48 | PC.SOCIAL ---
IMM Update pg 2 of IMM Updated and reviewed w/ patient. Copy provided and copy dated, initialed and placed in chart.
[2024-07-10] MEDS: amlodipine 10 mg Tablet PO (13:28)
--- NOTE | 2024-07-10 14:59 | P.PN_ITS ---
Subjective 2 Subjective: Patient was seen this morning, he is alert oriented x 3, following all commands no fevers, chills does have a cough, does complain of lower extremity edema, abdominal wall edema, Vitals/I&O/Wt Last Vital Signs Temp 98.2 F 07/10/24 11:29 Pulse 72 07/10/24 12:39 Resp 18 07/10/24 11:29 BP 168/78 07/10/24 11:29 Pulse Ox 94 07/10/24 12:39 O2 Del Method Nasal Cannula 07/10/24 12:39 O2 Flow Rate 4 07/10/24 12:39 FiO2 45 07/08/24 20:33 07/09/24 07/10/24 07/10/24 22:59 06:59 14:59 Intake Total 250 / 250 Output Total 650 / 650 Balance -400 / -400 Weight last 48 hrs Weight 176.629 kg Weight 176.629 kg Weight 175 kg Physical Exam 2 Const: COMMON NORMALS: no acute distress and patient oriented x3 Resp: COMMON NORMALS: normal respiratory effort, No retractions, No use of accessory muscles and clear to auscultation bilaterally AUSCULTATION: clear to auscultation bilaterally Cardio: COMMON NORMALS: regular rate, regular rhythm, S1 normal heart sound present and S2 normal heart sound present RATE: regular rate RHYTHM: r egular rhythm HEART SOUNDS: S1 normal heart sound present and S2 normal heart sound present GI: COMMON NORMALS: Normal to inspection, nondistended, normoactive bowel sounds present and non-tender Extremity: NARRATIVE EXTREMITY EXAM: 1+ pitting edema Neuro: COMMON NORMALS: patient oriented x3 Psych: COMMON NORMALS: mental status grossly normal Urinary Catheter Management: Briceño: Cath Placed During This Visit: yes Reason for Continuing Indwelling Catheter: Other Urinary Catheter Date of Insertion: 07/08/24 Urinary Catheter Time of Insertion: 13:00 Data 07/10/24 05:33 07/10/24 05:33 Micro: Microbiology 07/08/24 12:32 Blood Culture - Preliminary Blood Staphylococcus sp coag neg 07/09/24 06:23 Urine Culture - Preliminary Urine,Clean Catch 07/08/24 12:50 Blood Culture - Preliminary Blood NEGATIVE TO DATE A&P Assessment and plan (1) Acute hypoxic respiratory failure: (2) Influenza A: (3) Heart failure with preserved ejection fraction: (4) HTN (hypertension): (5) Diabetes mellitus type 2, uncontrolled, with complications: (6) Acquired hypothyroidism: (7) Anemia: (8) Acute on chronic respiratory failure with hypoxia and hypercapnia: (9) Sepsis: Plan Acute hypoxic hypercarbic respiratory failure -Secondary to influenza A pneumonia -Secondary to CHF exacerbation -With underlying diastolic CHF -With underlying obesity hypoventilation syndrome Plan -As respiratory distress is improving will moved to medical floors -Continue BiPAP therapy -40 mg IV twice daily currently on hold due to MONCHO creatinine 3.2 -Place Briceño catheter -Monitor urine output, monitor creatinine monitor potassium -Tamiflu 75 mg p.o. once, followed by 30 mg twice daily for 4 days -Given elevated CRP productive cough, started on IV antibiotics for secondary bacterial pneumonia, IV Rocephin, Zithromycin -blood cultures, sputum cultures Staphylococcal bacteremia -Seen in 1 out of 4 blood cultures -Likely contamination -Will monitor -Repeat blood cultures pending UTI, IV Rocephin Sepsis -Sepsis features met given influenza A, respiratory failure, moncho MONCHO on CKD -Creatinine 3.2, monitor urine output monitor creatinine Acute on chronic anemia -Check iron levels, ferritin, -Status post 2 units PRBC Diastolic CHF -Diuresis as above Influenza A pneumonia, placed under isolation PDMP PDMP Reviewed: Not Reviewed Attestations 2 Medical Necessity Statement*: Patient requires hospitalization for acute hypoxic respiratory failure, CHF, pneumonia, flu, MONCHO, anemia Diagnoses Acute hypoxic respiratory failure J96.01 Influenza A J10.1 Heart failure with preserved ejection fraction I50.30 HTN (hypertension) I10 Diabetes mellitus type 2, uncontrolled, with complications Acquired hypothyroidism E03.9 Anemia D64.9 Acute on chronic respiratory failure with hypoxia and hypercapnia J96.21; J96.22 Sepsis A41.9
[2024-07-10] MEDS: pramipexole 0.25 mg Tablet PO (16:37)
[2024-07-10 17:08] LABS: Glucose Point of Care 196 mg/dL (70-110)
[2024-07-10] MEDS: atorvastatin 40 mg Tablet 20 MG PO (18:00)
[2024-07-10] MEDS: tamsulosin 0.4 mg Capsule PO (18:00)
[2024-07-10] MEDS: trazodone 100 mg Tablet 150 MG PO (20:49)
[2024-07-10 21:20] LABS: Glucose Point of Care 260 mg/dL (70-110)
[2024-07-11] VITALS (13 sets, daily range): BP systolic 136–171; BP diastolic 63–77; PULSE 65–82; RESP 16–20; TEMP 36.4–36.8; O2SAT 88–95
--- NOTE | 2024-07-11 01:58 | PC.NURSE ---
Pt complained of leaking fluid from stomach . Upon assessment, discovered area of open skin on underside of pannus. This area and the surrounding tissue was weeping. The skin was hot and red to the touch. Nystatin powder which had previously been applied mixed with weeping fluid and formed a thick paste on the skin. Cleaned area thoroughly and applied interdry fabric to underside of pannus, as well as left groin which was also very red and excoriated.
[2024-07-11 05:18] LABS: Basophils % 0.2 %; Eosinophils # 0.1 10^3/uL (0.0-0.8); Eosinophils % 1.2 %; Hematocrit 25.3 % (37-53); Lymphocytes # 0.8 10^3/uL (0.8-4.8); Lymphocytes % 13.1 %; Mean Corpuscular HGB Conc 29.2 g/dL (30-55); Mean Corpuscular Hemoglobin 27.5 pg (27-33); Mean Corpuscular Volume 94.1 fl (82-101); Mean Platelet Volume 10.1 fL (7.4-10.4); Monocytes # 0.8 10^3/uL (0.2-0.9); Monocytes % 12.4 %; Neutrophils # 4.37 10^3/uL (1.8-7.7); Neutrophils % 72.4 %; Nucleated Red Blood Cells % 0 %; Platelet Count 138 10^3/cmm (157-399); Red Blood Count 2.69 10^6/uL (3.85-5.65); Red Cell Distribution Width 14.1 % (12.1-15.1); White Blood Count 6.03 10^3/uL (3.29-11.43)
[2024-07-11 05:44] LABS: Total Bilirubin 0.2 mg/dL (0.15-1.2)
[2024-07-11 05:48] LABS: NT Pro B Type Natriuretic Pept 6105 pg/mL (0-125)
[2024-07-11 06:10] LABS: Alanine Aminotransferase 14 U/L (0-41); Albumin Level 2.8 g/dL (3.5-5.2); Alkaline Phosphatase 111 U/L (40-130); Aspartate Amino Transferase 30 U/L (0-40); Blood Urea Nitrogen 74 mg/dL (8-23); Calcium 7.8 mg/dL (8.5-10.5); Carbon Dioxide 26 mmol/L (22-29); Chloride 96 mmol/L (98-107); Creatinine Clr Calc Pharmacy 39.7747; Globulin 3.3 g/dL (1.3-4.6); Glomerular Filtration Rate 20.9 mL/min (90-130); Glucose 173 mg/dL (65-115); Magnesium 2.2 mg/dL (1.7-2.3); Osmolality Calculated 308 mOsm/kg (285-295); Phosphorus 3.7 mg/dL (2.5-4.5); Sodium 136 mmol/L (136-145); Total Protein 6.1 g/dL (6.6-8.7)
--- NOTE | 2024-07-11 06:10 | PM.CONSULT ---
Providers/Reason For Consult Consulting Physician/Specialty*: [facility]/Nephrology Reason for Consult*: Acute on CKD Attending Physician: Kiran Quinones MD Primary Care Provider: Rachel Bills MD History of Present Illness History of Present Illness Juan Thomas is a 69 year old male Patient is a 69-year-old male with past medical history of chronic respiratory failure due to COPD obesity hypoventilation, on BiPAP at custodial, chronic kidney disease stage IV, diabetes, hypertension, dyslipidemia, CHF chronic anemia was sent to the emergency department due to shortness of breath. Blood pressure was elevated at 175/69 on presentation, was on BiPAP, was tachypneic on presentation. Lab data showed hemoglobin of 6.0 creatinine was 2.7 on presentation. Patient also tested positive for influenza A. Patient received 2 units of PRBCs for severe anemia. Review of Systems Narrative: NEGATIVE Medications/Allergies Home Medications ?Medication ?Instructions ?Recorded ?Confirmed ?Last Taken ?Type clonazepam 1 mg tablet 0.5 mg PO BEDTIME PRN Sleep 08/07/21 07/08/24 07/06/24 History sertraline 100 mg tablet 100 mg PO QAM 08/07/21 07/08/24 07/08/24 History levocetirizine 5 mg tablet 5 mg PO QAM 02/16/22 07/08/24 07/08/24 History levothyroxine 25 mcg tablet 25 mcg PO QAM 02/16/22 07/08/24 07/08/24 History simvastatin 10 mg tablet 10 mg PO QPM 12/16/23 07/08/24 07/07/24 History tamsulosin 0.4 mg capsule 0.4 mg PO QPM 12/16/23 07/08/24 07/07/24 History ipratropium 0.5 mg-albuterol 3 mg 3 ml inhalation Q6H PRN Shortness 12/19/23 07/08/24 07/02/24 Rx (2.5 mg base)/3 mL nebulization Of Breath #280 mL soln isosorbide mononitrate 30 mg 30 mg PO BID #60 tabs 12/19/23 07/08/24 07/08/24 Rx tablet,extended release 24 hr pramipexole 0.25 mg tablet 0.25 mg PO TID PRN Restless Leg 07/07/08/24 07/08/24 Rx Syndrome #90 tabs gabapentin 300 mg capsule 300 mg PO TID 05/19/24 07/08/24 07/08/24 History omeprazole 20 mg capsule,delayed 20 mg PO BID 05/19/24 07/08/24 07/08/24 History release bumetanide 1 mg tablet 1.5 mg (1.5 x 1 mg) PO BID #60 tabs 05/22/24 07/08/24 07/08/24 Rx metoprolol tartrate 25 mg tablet 25 mg PO BID@0900,2100 #120 tabs 05/22/24 07/08/24 07/08/24 Rx ferrous sulfate 325 mg (65 mg See Rx Instructions .Route .COMPLEX 06/23/24 07/08/24 07/08/24 History iron) tablet hydralazine 100 mg tablet 100 mg PO TID 06/23/24 07/08/24 07/08/24 History patiromer calcium sorbitex 8.4 8.4 g PO .QOD 06/23/24 07/08/24 06/21/24 History gram oral powder packet ([place]) trazodone 150 mg tablet 150 mg PO BEDTIME 06/23/24 07/08/24 07/07/24 History acetaminophen 325 mg tablet 650 mg PO Q6H PRN Pain 07/08/24 07/08/24 07/08/24 History (Tylenol) bisacodyl 10 mg rectal suppository 10 mg FL DAILY PRN Constipation 07/08/24 07/08/24 Unknown History (Dulcolax (bisacodyl)) insulin aspart U-100 100 unit/mL 8 unit SUBCUT .WITH MEALS 07/08/24 07/08/24 07/08/24 History (3 mL) subcutaneous pen insulin aspart U-100 100 unit/mL See Rx Instructions .Route .COMPLEX 07/08/24 07/08/24 07/07/24 History (3 mL) subcutaneous pen insulin glargine 100 unit/mL (3 20 unit SUBCUT BID 07/08/24 07/08/24 07/08/24 History mL) subcutaneous pen (Lantus Solostar U-100 Insulin) nystatin 100,000 unit/gram topical 1 applic topical BID 07/08/24 07/08/24 07/07/24 History powder Allergies Allergy/AdvReac Type Severity Reaction Status Date / Time No Known Allergies Allergy Verified 07/03/24 16:20 Current Medications Generic Name Dose Route Start Last Admin Trade Name Sadiq PRN Reason Stop Dose Admin Albuterol/Ipratropium 3 ml 07/08/24 21:58 07/10/24 20:47 Ipratropium-Albuterol 3 Ml Neb INHALATION 3 ml QID.RESPIRATORY ARMANDO Administration Amlodipine Besylate 10 mg 07/09/24 13:00 07/10/24 13:28 Amlodipine 10 Mg Tablet PO 10 mg Q24H ARMANDO Administration Atorvastatin Calcium 20 mg 07/09/24 18:00 07/10/24 18:00 Atorvastatin 40 Mg Tablet PO 20 mg QPM ARMANDO Administration Budesonide 0.5 mg 07/08/24 21:58 07/10/24 20:48 Budesonide 0.5 Mg/2 Ml Neb INHALATION 0.5 mg BID.RESPIRATORY ARMANDO Administration Ceftriaxone Sodium 1,000 mg 07/09/24 11:45 07/10/24 11:38 Ceftriaxone 1,000 Mg Sdv IVP 1,000 mg Q24H ARMANDO Administration Protocol Ferrous Sulfate 325 mg 07/09/24 11:45 07/09/24 11:55 Ferrous Sulfate Ec 325 Mg Tablet PO 325 mg EVERY OTHER DAY ARMANDO Administration Gabapentin 300 mg 07/08/24 21:58 07/10/24 20:49 Gabapentin 300 Mg Capsule PO 300 mg TID ARMANDO Administration Hydralazine HCl 100 mg 07/08/24 19:30 07/10/24 20:49 Hydralazine 50 Mg Tablet PO 100 mg TID ARMANDO Administration Insulin Glargine 10 unit 07/08/24 23:30 07/10/24 20:50 Insulin Glargine 100 Units/1 Ml SUBCUT 10 unit BID@0900,2100 ARMANDO Administration Insulin Human Lispro 0 unit 07/08/24 21:58 07/10/24 22:54 Insulin Lispro 100 Unit/1 Ml SUBCUT 10 unit WM&BEDTIME ARMANDO Administration Protocol Isosorbide Mononitrate 30 mg 07/08/24 21:58 07/10/24 18:00 Isosorbide Mononitrate Er 30 Mg Tablet PO 30 mg BID ARMANDO Administration Levothyroxine Sodium 25 mcg 07/09/24 06:00 07/10/24 06:04 Levothyroxine 25 Mcg Tablet PO 25 mcg QAM ARMANDO Administration Metoprolol Tartrate 25 mg 07/08/24 21:58 07/10/24 20:49 Metoprolol Tartrate 25 Mg Tablet PO 25 mg BID@0900,2100 ARMANDO Administration Nicotine 1 patch 07/09/24 22:00 07/10/24 08:53 Nicotine 14 Mg Patch TRANSDERMA Not Given DAILY ARMANDO Nystatin 1 applic 07/09/24 10:53 07/10/24 18:00 Nystatin Powder 15 Gm Btl TOPICAL 1 applic BID ARMANDO Administration Oseltamivir Phosphate 30 mg 07/09/24 09:00 07/10/24 18:00 Oseltamivir Phosphate 30 Mg Capsule PO 07/13/24 08:59 30 mg BID ARMANDO Administration Pantoprazole Sodium 40 mg 07/08/24 21:58 07/10/24 20:49 Pantoprazole 40 Mg Sdv IVP 40 mg Q12H ARMANDO Administration Pramipexole Dihydrochloride 0.25 mg 07/08/24 21:58 07/10/24 16:37 Pramipexole 0.25 Mg Tablet PO 0.25 mg TID PRN Administration Restless Leg Syndrome Sertraline HCl 100 mg 07/09/24 06:00 07/10/24 06:04 Sertraline 100 Mg Tablet PO 100 mg QAM ARMANDO Administration Sucralfate 1 gm 07/09/24 07:00 07/10/24 20:50 Sucralfate 1 Gm/10 Ml Oral Liq Udc PO 1 gm AC&BEDTIME ARMANDO Administration Tamsulosin HCl 0.4 mg 07/08/24 21:58 07/10/24 18:00 Tamsulosin 0.4 Mg Capsule PO 0.4 mg QPM ARMANDO Administration Trazodone HCl 150 mg 07/09/24 21:00 07/10/24 20:49 Trazodone 100 Mg Tablet PO 150 mg BEDTIME ARMANDO Administration PFSH Acute PFSH: Medical History Pneumonia Anemia Acute hyperkalemia Hypotension Hypochromic microcytic anemia Anxiety and depression Normocytic anemia Heart failure Atrial flutter Respiratory failure Iron deficiency anemia Brain aneurysm Necrotizing fasciitis of shoulder region Diabetes Surgical History Status post colonoscopy (10/18/21) H/O esophagogastroduodenoscopy (10/18/21) History of shoulder surgery Family History Grandfather Clotting disorder Family/Other CAD (coronary artery disease) Cancer Diabetes Stroke Grandmother CAD (coronary artery disease) Dementia Father Cancer Lung disease Mother Cancer Denies family history of Chronic kidney disease (CKD) Suicide Anesthesia complication Bleeding disorder Social History Smoking and tobacco/nicotine status: current every day tobacco/nicotine user (1 ppd, smoked x 50 years) cigarettes Packs smoked per day: 2 Years cigarettes smoked: 50 [ Other cigarette details: started at age 16] Alcohol intake: never Substance/Drug Use: never Vitals/I&O/Wt Last Vital Signs Temp 98.2 F 07/11/24 04:00 Pulse 66 07/11/24 04:00 Resp 20 H 07/11/24 04:00 BP 136/63 07/11/24 04:00 Pulse Ox 91 07/11/24 04:00 O2 Del Method CPAP 07/11/24 04:00 O2 Flow Rate 4 07/10/24 21:03 FiO2 45 07/08/24 20:33 07/10/24 07/10/24 07/11/24 14:59 22:59 06:59 Intake Total 250 / 250 120 / 370 Output Total 650 / 650 1300 / 1950 Balance -400 / -400 -1180 / -1580 Weight last 48 hrs Weight 182.662 kg Weight 176.629 kg Physical Exam Narrative: Awake , alert , no distress PEEERLA S1S2 RRR per report Lungs - ronchi davonte + EDEMA Urinary Catheter Management: Briceño: Cath Placed During This Visit: yes Reason for Continuing Indwelling Catheter: Other Urinary Catheter Date of Insertion: 07/08/24 Urinary Catheter Time of Insertion: 13:00 Data 07/11/24 04:55 07/11/24 04:55 Micro: Microbiology 07/11/24 04:59 Blood Culture - Preliminary Blood SPECIMEN COLLECTED 07/11/24 04:45 Blood Culture - Preliminary Blood SPECIMEN COLLECTED 07/08/24 12:32 Blood Culture - Preliminary Blood Staphylococcus sp coag neg 07/09/24 06:23 Urine Culture - Preliminary Urine,Clean Catch A&P Assessment and plan (1) Acute kidney injury superimposed on CKD: Plan 1. Acute on chronic kidney disease stage IV: Baseline creatinine is in the mid 2 range, creatinine is up to 3.2 likely in the setting of acute infection, probably ATN. Volume overloaded -Creatinine trended down to 3.0 today, -Will give IV albumin and IV Lasix today -Needs nephrology follow-up as outpatient 2. Acute on chronic respiratory failure: In the setting of influenza, known history of COPD and obstructive sleep apnea, on BiPAP 3. Severe anemia status post transfusion, will also give a dose of Epogen 4. History of diabetes 5. History of hypertension, blood pressures fluctuating patient evaluated using audiovisual cart. Time spent 40 minutes. PDMP PDMP Reviewed: Not Reviewed Consult Attestations Medical Necessity Statement: PER MAT[facility] Coding Level of Care Code Acute Code for Chg Fwd Diagnoses Acute kidney injury superimposed on CKD N17.9; N18.9
[2024-07-11] MEDS: sertraline 100 mg Tablet PO (06:19)
[2024-07-11] MEDS: sucralfate 1 gm/10 mL Oral Liq UDC PO ×4 (06:19→21:41)
[2024-07-11] MEDS: levothyroxine 25 mcg Tablet PO (06:19)
[2024-07-11] MEDS: pramipexole 0.25 mg Tablet PO ×3 (06:27→21:44)
[2024-07-11 06:29] LABS: Glucose Point of Care 195 mg/dL (70-110)
[2024-07-11] MEDS: ipratropium-albuterol 3 mL Neb INHALATION ×4 (07:21→20:01)
[2024-07-11] MEDS: budesonide 0.5 mg/2 mL Neb INHALATION ×2 (07:21→20:01)
[2024-07-11] MEDS: nicotine 14 mg Patch 1 PATCH TRANSDERMA (08:44)
[2024-07-11] MEDS: insulin glargine 100 units/1 mL 10 UNIT SUBCUT ×2 (08:44→21:45)
[2024-07-11] MEDS: insulin lispro 100 unit/1 mL SUBCUT ×4 (08:44→22:07)
[2024-07-11] MEDS: isosorbide mononitrate ER 30 mg Tablet PO ×2 (08:45→17:53)
[2024-07-11] MEDS: oseltamivir phosphate 30 mg Capsule PO ×2 (08:45→17:54)
[2024-07-11] MEDS: ferrous sulfate EC 325 mg Tablet PO (08:45)
[2024-07-11] MEDS: gabapentin 300 mg Capsule PO ×3 (08:45→21:41)
[2024-07-11] MEDS: pantoprazole 40 mg SDV IVP ×2 (08:45→21:42)
[2024-07-11] MEDS: hyDRALAzine 50 mg Tablet 100 MG PO ×3 (08:45→21:41)
[2024-07-11] MEDS: nystatin powder 15 gm Btl 1 APPLIC TOPICAL ×2 (08:46→18:29)
[2024-07-11] MEDS: metoprolol tartrate 25 mg Tablet PO ×2 (08:47→21:41)
[2024-07-11 11:51] LABS: Glucose Point of Care 182 mg/dL (70-110)
[2024-07-11] MEDS: cefTRIAXone 1,000 mg SDV 1000 MG IVP (12:26)
[2024-07-11] MEDS: amlodipine 10 mg Tablet PO (12:26)
[2024-07-11 16:38] LABS: Glucose Point of Care 178 mg/dL (70-110)
--- NOTE | 2024-07-11 17:09 | P.PN_ITS ---
Subjective 2 Subjective: Patient was seen this morning, he has no complaints no fevers, chills, no cough no abdominal pain does have edema complaints Vitals/I&O/Wt Last Vital Signs Temp 97.6 F 07/11/24 16:36 Pulse 75 07/11/24 16:36 Resp 16 07/11/24 16:36 BP 168/65 07/11/24 16:36 Pulse Ox 93 07/11/24 16:36 O2 Del Method CPAP 07/11/24 16:36 O2 Flow Rate 4 07/11/24 16:36 FiO2 45 07/08/24 20:33 07/11/24 07/11/24 07/11/24 06:59 14:59 22:59 Intake Total 1200 / 1570 Output Total 450 / 2400 Balance 750 / -830 Weight last 48 hrs Weight 182.662 kg Weight 176.629 kg Physical Exam 2 Const: COMMON NORMALS: no acute distress and patient oriented x3 Resp: COMMON NORMALS: normal respiratory effort, No retractions, No use of accessory muscles and clear to auscultation bilaterally AUSCULTATION: clear to auscultation bilaterally Cardio: COMMON NORMALS: regular rate, regular rhythm, S1 normal heart sound present and S2 normal heart sound present RATE: regular rate RHYTHM: r egular rhythm HEART SOUNDS: S1 normal heart sound present and S2 normal heart sound present GI: COMMON NORMALS: Normal to inspection, nondistended, normoactive bowel sounds present Extremity: COMMON NORMALS: no pedal edema Neuro: COMMON NORMALS: patient oriented x3 Psych: COMMON NORMALS: mental status grossly normal Urinary Catheter Management: Briceño: Cath Placed During This Visit: yes Reason for Continuing Indwelling Catheter: Other Urinary Catheter Date of Insertion: 07/08/24 Urinary Catheter Time of Insertion: 13:00 Data 07/11/24 04:55 07/11/24 04:55 Micro: Microbiology 07/09/24 06:23 Urine Culture - Final Urine,Clean Catch 07/11/24 04:59 Blood Culture - Preliminary Blood SPECIMEN COLLECTED 07/11/24 04:45 Blood Culture - Preliminary Blood SPECIMEN COLLECTED 07/08/24 12:32 Blood Culture - Preliminary Blood Staphylococcus sp coag neg A&P Assessment and plan (1) Acute hypoxic respiratory failure: (2) Influenza A: (3) Heart failure with preserved ejection fraction: (4) HTN (hypertension): (5) Diabetes mellitus type 2, uncontrolled, with complications: (6) Acquired hypothyroidism: (7) Anemia: (8) Acute on chronic respiratory failure with hypoxia and hypercapnia: (9) Sepsis: Plan Acute hypoxic hypercarbic respiratory failure -Secondary to influenza A pneumonia -Secondary to CHF exacerbation -With underlying diastolic CHF -With underlying obesity hypoventilation syndrome Plan -As respiratory distress is improving will moved to medical floors -Continue BiPAP therapy - creatinine 3.01 dose IV Lasix -Place Briceño catheter -Monitor urine output, monitor creatinine monitor potassium -Tamiflu 75 mg p.o. once, followed by 30 mg twice daily for 4 days -Given elevated CRP productive cough, started on IV antibiotics for secondary bacterial pneumonia, IV Rocephin, Zithromycin -blood cultures, sputum cultures Staphylococcal bacteremia -Seen in 1 out of 4 blood cultures -Likely contamination -Will monitor -Repeat blood cultures pending UTI, IV Rocephin Sepsis -Sepsis features met given influenza A, respiratory failure, moncho MONCHO on CKD -Creatinine 3.2, monitor urine output monitor creatinine Acute on chronic anemia -Likely second to bone marrow pathology -as patient had EGD during last hospitalization and no acute findings colonoscopy status post polypectomy, but no complaints of bloody black stools -Check iron levels, ferritin, -Status post 2 units PRBC Diastolic CHF -Diuresis as above Influenza A pneumonia, placed under isolation Plan monitor urine output monitor creatinine repeat BMP this afternoon repeat CBC this afternoon, 1 dose IV Lasix PDMP PDMP Reviewed: Not Reviewed Attestations 2 Medical Necessity Statement*: Patient requires hospitalization for UTI, Staph aureus bacteremia, acute respiratory failure, CHF, Diagnoses Acute hypoxic respiratory failure J96.01 Influenza A J10.1 Heart failure with preserved ejection fraction I50.30 HTN (hypertension) I10 Diabetes mellitus type 2, uncontrolled, with complications Acquired hypothyroidism E03.9 Anemia D64.9 Acute on chronic respiratory failure with hypoxia and hypercapnia J96.21; J96.22 Sepsis A41.9
[2024-07-11] MEDS: atorvastatin 40 mg Tablet 20 MG PO (17:53)
[2024-07-11] MEDS: tamsulosin 0.4 mg Capsule PO (17:54)
[2024-07-11] MEDS: azithromycin 250 mg Tablet PO (17:57)
[2024-07-11] MEDS: FUROsemide 10 mg/mL SDV 4mL 40 MG IVP (18:22)
[2024-07-11 18:33] LABS: Basophils % 0.2 %; Eosinophils # 0.1 10^3/uL (0.0-0.8); Hematocrit 25.7 % (37-53); Lymphocytes # 0.8 10^3/uL (0.8-4.8); Lymphocytes % 13.3 %; Mean Corpuscular HGB Conc 30.4 g/dL (30-55); Mean Corpuscular Hemoglobin 27.8 pg (27-33); Mean Corpuscular Volume 91.5 fl (82-101); Mean Platelet Volume 10.5 fL (7.4-10.4); Monocytes # 0.6 10^3/uL (0.2-0.9); Monocytes % 9.8 %; Neutrophils # 4.67 10^3/uL (1.8-7.7); Neutrophils % 75.1 %; Nucleated Red Blood Cells % 0 %; Platelet Count 146 10^3/cmm (157-399); Red Blood Count 2.81 10^6/uL (3.85-5.65); Red Cell Distribution Width 13.7 % (12.1-15.1); White Blood Count 6.22 10^3/uL (3.29-11.43)
[2024-07-11 18:53] LABS: Alanine Aminotransferase 15 U/L (0-41); Albumin Level 3.1 g/dL (3.5-5.2); Alkaline Phosphatase 117 U/L (40-130); Aspartate Amino Transferase 32 U/L (0-40); Blood Urea Nitrogen 69 mg/dL (8-23); Calcium 8.1 mg/dL (8.5-10.5); Carbon Dioxide 27 mmol/L (22-29); Chloride 98 mmol/L (98-107); Creatinine Clr Calc Pharmacy 44.1941; Globulin 3.4 g/dL (1.3-4.6); Glomerular Filtration Rate 23.5 mL/min (90-130); Glucose 158 mg/dL (65-115); Osmolality Calculated 307 mOsm/kg (285-295); Sodium 137 mmol/L (136-145); Total Bilirubin 0.2 mg/dL (0.15-1.2); Total Protein 6.5 g/dL (6.6-8.7)
[2024-07-11 18:54] LABS: Anion Gap 16.2 (5-19); Potassium 4.2 mmol/L (3.5-5.1)
[2024-07-11] MEDS: trazodone 100 mg Tablet 150 MG PO (21:41)
[2024-07-11 21:42] LABS: Glucose Point of Care 221 mg/dL (70-110)
[2024-07-12] VITALS (12 sets, daily range): BP systolic 145–175; BP diastolic 49–91; PULSE 70–100; RESP 15–18; TEMP 36.3–36.8; O2SAT 91–96
[2024-07-12 05:30] LABS: Basophils % 0.5 %; Eosinophils # 0.1 10^3/uL (0.0-0.8); Eosinophils % 1.8 %; Hematocrit 26.2 % (37-53); Lymphocytes # 0.8 10^3/uL (0.8-4.8); Lymphocytes % 13.7 %; Mean Corpuscular HGB Conc 29.4 g/dL (30-55); Mean Corpuscular Hemoglobin 27.8 pg (27-33); Mean Corpuscular Volume 94.6 fl (82-101); Mean Platelet Volume 10.7 fL (7.4-10.4); Monocytes # 0.6 10^3/uL (0.2-0.9); Monocytes % 10.1 %; Neutrophils # 4.44 10^3/uL (1.8-7.7); Neutrophils % 73.2 %; Nucleated Red Blood Cells % 0 %; Platelet Count 143 10^3/cmm (157-399); Red Blood Count 2.77 10^6/uL (3.85-5.65); Red Cell Distribution Width 13.7 % (12.1-15.1); White Blood Count 6.06 10^3/uL (3.29-11.43)
[2024-07-12 05:49] LABS: Alanine Aminotransferase 16 U/L (0-41); Albumin Level 2.9 g/dL (3.5-5.2); Alkaline Phosphatase 121 U/L (40-130); Aspartate Amino Transferase 30 U/L (0-40); Blood Urea Nitrogen 72 mg/dL (8-23); Calcium 7.9 mg/dL (8.5-10.5); Carbon Dioxide 27 mmol/L (22-29); Chloride 99 mmol/L (98-107); Creatinine Clr Calc Pharmacy 44.1941; Globulin 3.6 g/dL (1.3-4.6); Glomerular Filtration Rate 23.5 mL/min (90-130); Glucose 193 mg/dL (65-115); Magnesium 2.3 mg/dL (1.7-2.3); Osmolality Calculated 314 mOsm/kg (285-295); Phosphorus 3.2 mg/dL (2.5-4.5); Sodium 139 mmol/L (136-145); Total Bilirubin 0.2 mg/dL (0.15-1.2); Total Protein 6.5 g/dL (6.6-8.7)
[2024-07-12 05:57] LABS: NT Pro B Type Natriuretic Pept 6274 pg/mL (0-125)
[2024-07-12] MEDS: sucralfate 1 gm/10 mL Oral Liq UDC PO ×4 (06:10→21:10)
[2024-07-12] MEDS: sertraline 100 mg Tablet PO (06:10)
[2024-07-12] MEDS: levothyroxine 25 mcg Tablet PO (06:10)
[2024-07-12 06:53] LABS: Glucose Point of Care 229 mg/dL (70-110)
[2024-07-12] MEDS: ipratropium-albuterol 3 mL Neb INHALATION ×4 (07:17→20:50)
[2024-07-12] MEDS: budesonide 0.5 mg/2 mL Neb INHALATION ×2 (07:17→20:51)
[2024-07-12] MEDS: FUROsemide 10 mg/mL SDV 4mL 40 MG IVP ×2 (09:03→16:11)
[2024-07-12] MEDS: pantoprazole 40 mg SDV IVP (09:03)
[2024-07-12] MEDS: pramipexole 0.25 mg Tablet PO ×2 (09:04→21:12)
[2024-07-12] MEDS: hyDRALAzine 50 mg Tablet 100 MG PO ×3 (09:04→21:09)
[2024-07-12] MEDS: oseltamivir phosphate 30 mg Capsule PO ×2 (09:04→18:03)
[2024-07-12] MEDS: potassium chloride ER 20 mEq Tablet 40 MEQ PO (09:04)
[2024-07-12] MEDS: isosorbide mononitrate ER 30 mg Tablet PO ×2 (09:04→18:03)
[2024-07-12] MEDS: metoprolol tartrate 25 mg Tablet PO ×2 (09:04→21:09)
[2024-07-12] MEDS: gabapentin 300 mg Capsule PO ×3 (09:04→21:09)
[2024-07-12] MEDS: metOLazone 5 MG Tablet PO (09:04)
[2024-07-12] MEDS: nystatin powder 15 gm Btl 1 APPLIC TOPICAL ×2 (09:05→18:04)
[2024-07-12] MEDS: insulin lispro 100 unit/1 mL SUBCUT ×4 (09:05→21:10)
[2024-07-12] MEDS: nicotine 14 mg Patch 1 PATCH TRANSDERMA (09:05)
[2024-07-12] MEDS: insulin glargine 100 units/1 mL 10 UNIT SUBCUT ×2 (09:05→21:10)
--- NOTE | 2024-07-12 09:44 | P.PN_ITS ---
Subjective 2 Subjective: Patient was seen this morning, he is alert oriented x 3, following all commands, complains of shortness of breath increased abdominal distention, abdominal wall edema lower extremity edema discussed his creatinine was 2.7 after getting Lasix, as he is tolerated well but he tells he did not urinate much overnight will give him 2 doses of Lasix today with metolazone and watch him closely watch his kidney function watch his potassium, he is agreeable Vitals/I&O/Wt Last Vital Signs Temp 98.0 F 07/12/24 08:00 Pulse 72 07/12/24 08:00 Resp 16 07/12/24 08:00 BP 156/49 07/12/24 08:00 Pulse Ox 93 07/12/24 08:00 O2 Del Method Nasal Cannula 07/12/24 08:00 O2 Flow Rate 4 07/12/24 07:18 FiO2 45 07/08/24 20:33 07/11/24 07/12/24 07/12/24 22:59 06:59 14:59 Output Total 700 / 700 950 / 1650 Balance -700 / -700 -950 / -1650 Weight last 48 hrs Weight 182.662 kg Physical Exam 2 Const: COMMON NORMALS: no acute distress and patient oriented x3 Resp: COMMON NORMALS: normal respiratory effort, No retractions and No use of accessory muscles AUSCULTATION: crackles Cardio: COMMON NORMALS: regular rate, regular rhythm, S1 normal heart sound present and S2 normal heart sound present RATE: regular rate RHYTHM: r egular rhythm HEART SOUNDS: S1 normal heart sound present and S2 normal heart sound present GI: COMMON NORMALS: Normal to inspection, nondistended, normoactive bowel sounds present and non-tender Extremity: OTHER: Anasarca, 2+ pitting edema bilateral extremity Neuro: COMMON NORMALS: patient oriented x3 Psych: COMMON NORMALS: mental status grossly normal Urinary Catheter Management: Briceño: Cath Placed During This Visit: yes Reason for Continuing Indwelling Catheter: Acute Urinary Retention or Obstruction Urinary Catheter Date of Insertion: 07/08/24 Urinary Catheter Time of Insertion: 13:00 Data 07/12/24 04:17 07/12/24 04:17 Micro: Microbiology 07/11/24 04:59 Blood Culture - Preliminary Blood NEGATIVE TO DATE 07/11/24 04:45 Blood Culture - Preliminary Blood NEGATIVE TO DATE 07/09/24 06:23 Urine Culture - Final Urine,Clean Catch A&P Assessment and plan (1) Acute hypoxic respiratory failure: (2) Influenza A: (3) Heart failure with preserved ejection fraction: (4) HTN (hypertension): (5) Diabetes mellitus type 2, uncontrolled, with complications: (6) Acquired hypothyroidism: (7) Anemia: (8) Acute on chronic respiratory failure with hypoxia and hypercapnia: (9) Sepsis: Plan Acute hypoxic hypercarbic respiratory failure -Secondary to influenza A pneumonia -Secondary to CHF exacerbation -With underlying diastolic CHF -With underlying obesity hypoventilation syndrome Plan -As respiratory distress is improving will moved to medical floors -Continue BiPAP therapy -Creatinine 2.7 ? 2 doses IV Lasix 40 mg, with 1 dose metolazone with potassium replacement -Place Briceño catheter -Monitor urine output, monitor creatinine monitor potassium -Tamiflu 75 mg p.o. once, followed by 30 mg twice daily for 4 days -Given elevated CRP productive cough, started on IV antibiotics for secondary bacterial pneumonia, IV Rocephin, Zithromycin, last day today -blood cultures, sputum cultures Staphylococcal bacteremia -Seen in 1 out of 4 blood cultures -Likely contamination -Will monitor -Repeat blood cultures pending UTI, IV Rocephin, last day of antibiotics today Sepsis -Sepsis features met given influenza A, respiratory failure, moncho MONCHO on CKD -Creatinine 2.7 monitor urine output monitor creatinine Acute on chronic anemia -Likely second to bone marrow pathology -as patient had EGD during last hospitalization and no acute findings colonoscopy status post polypectomy, but no complaints of bloody black stools -Check iron levels, ferritin, within reasonable range hold off on iron transfusion -Status post 2 units PRBC Diastolic CHF -Diuresis as above Influenza A pneumonia, placed under isolation Plan monitor monitor urine output, monitor creatinine 2 doses IV Lasix with metolazone PDMP PDMP Reviewed: Not Reviewed Attestations 2 Medical Necessity Statement*: Patient requires hospitalization for diastolic CHF exacerbation requiring IV diuresis, pneumonia, flu, staphylococcal bacteremia Diagnoses Acute hypoxic respiratory failure J96.01 Influenza A J10.1 Heart failure with preserved ejection fraction I50.30 HTN (hypertension) I10 Diabetes mellitus type 2, uncontrolled, with complications Acquired hypothyroidism E03.9 Anemia D64.9 Acute on chronic respiratory failure with hypoxia and hypercapnia J96.21; J96.22 Sepsis A41.9
--- NOTE | 2024-07-12 10:11 | P.PN_ITS ---
Subjective 2 Subjective: no new complaints Medications: Reviewed: Yes Vitals/I&O/Wt Last Vital Signs Temp 98.0 F 07/12/24 08:00 Pulse 72 07/12/24 08:00 Resp 16 07/12/24 08:00 BP 156/49 07/12/24 08:00 Pulse Ox 93 07/12/24 08:00 O2 Del Method Nasal Cannula 07/12/24 08:00 O2 Flow Rate 4 07/12/24 07:18 FiO2 45 07/08/24 20:33 07/11/24 07/12/24 07/12/24 22:59 06:59 14:59 Output Total 700 / 700 950 / 1650 Balance -700 / -700 -950 / -1650 Weight last 48 hrs Weight 182.662 kg Physical Exam 2 Narrative: Awake , alert , no distress PEEERLA S1S2 RRR per report Lungs - ronchi davonte + EDEMA Urinary Catheter Management: Briceño: Cath Placed During This Visit: yes Reason for Continuing Indwelling Catheter: Acute Urinary Retention or Obstruction Urinary Catheter Date of Insertion: 07/08/24 Urinary Catheter Time of Insertion: 13:00 Data 07/12/24 04:17 07/12/24 04:17 Micro: Microbiology 07/11/24 04:59 Blood Culture - Preliminary Blood NEGATIVE TO DATE 07/11/24 04:45 Blood Culture - Preliminary Blood NEGATIVE TO DATE 07/09/24 06:23 Urine Culture - Final Urine,Clean Catch A&P Assessment and plan (1) Acute kidney injury superimposed on CKD: Plan 1. Acute on chronic kidney disease stage IV: Baseline creatinine is in the mid 2 range, creatinine is up to 3.2 likely in the setting of acute infection, probably ATN. Volume overloaded -Creatinine trended down to 2.7 today, -s/p IV albumin and IV Lasix , continue PRN lasix -Needs nephrology follow-up as outpatient 2. Acute on chronic respiratory failure: In the setting of influenza, known history of COPD and obstructive sleep apnea, on BiPAP 3. Severe anemia status post transfusion, will also give a dose of Epogen 4. History of diabetes 5. History of hypertension, blood pressures fluctuating patient evaluated using audiovisual cart. Time spent 40 minutes. PDMP PDMP Reviewed: Not Reviewed Attestations 2 Medical Necessity Statement*: per cintia Coding Level of Care Code Acute Code for Chg Fwd Diagnoses Acute kidney injury superimposed on CKD N17.9; N18.9
[2024-07-12 12:01] LABS: Glucose Point of Care 277 mg/dL (70-110)
[2024-07-12] MEDS: cefTRIAXone 1,000 mg SDV 1000 MG IVP (12:11)
[2024-07-12] MEDS: amlodipine 10 mg Tablet PO (12:12)
[2024-07-12] MEDS: potassium chloride ER 20 mEq Tablet PO (16:11)
[2024-07-12] MEDS: azithromycin 250 mg Tablet PO (16:11)
[2024-07-12 17:35] LABS: Glucose Point of Care 176 mg/dL (70-110)
[2024-07-12] MEDS: tamsulosin 0.4 mg Capsule PO (18:03)
[2024-07-12] MEDS: atorvastatin 40 mg Tablet 20 MG PO (18:03)
[2024-07-12 20:36] LABS: Glucose Point of Care 263 mg/dL (70-110)
[2024-07-12] MEDS: trazodone 100 mg Tablet 150 MG PO (21:09)
[2024-07-13] VITALS (8 sets, daily range): BP systolic 136–197; BP diastolic 63–93; PULSE 70–85; RESP 16–19; TEMP 36.4–37; O2SAT 93–96
[2024-07-13 05:37] LABS: Basophils % 0.2 %; Eosinophils # 0.2 10^3/uL (0.0-0.8); Eosinophils % 2.6 %; Hematocrit 26.4 % (37-53); Lymphocytes # 0.9 10^3/uL (0.8-4.8); Lymphocytes % 14.1 %; Mean Corpuscular HGB Conc 28.8 g/dL (30-55); Mean Corpuscular Hemoglobin 27.5 pg (27-33); Mean Corpuscular Volume 95.7 fl (82-101); Mean Platelet Volume 10.4 fL (7.4-10.4); Monocytes # 0.6 10^3/uL (0.2-0.9); Monocytes % 8.8 %; Neutrophils # 4.61 10^3/uL (1.8-7.7); Neutrophils % 73.7 %; Nucleated Red Blood Cells % 0 %; Platelet Count 130 10^3/cmm (157-399); Red Blood Count 2.76 10^6/uL (3.85-5.65); Red Cell Distribution Width 13.6 % (12.1-15.1); White Blood Count 6.25 10^3/uL (3.29-11.43)
[2024-07-13 06:05] LABS: Alanine Aminotransferase 16 U/L (0-41); Albumin Level 3.1 g/dL (3.5-5.2); Alkaline Phosphatase 145 U/L (40-130); Aspartate Amino Transferase 30 U/L (0-40); Blood Urea Nitrogen 71 mg/dL (8-23); Calcium 7.9 mg/dL (8.5-10.5); Carbon Dioxide 26 mmol/L (22-29); Chloride 99 mmol/L (98-107); Creatinine Clr Calc Pharmacy 45.7838; Glomerular Filtration Rate 24.6 mL/min (90-130); Glucose 202 mg/dL (65-115); Magnesium 2.3 mg/dL (1.7-2.3); Osmolality Calculated 313 mOsm/kg (285-295); Phosphorus 3.3 mg/dL (2.5-4.5); Sodium 138 mmol/L (136-145); Total Bilirubin 0.2 mg/dL (0.15-1.2); Total Protein 6.1 g/dL (6.6-8.7)
[2024-07-13 06:10] LABS: Anion Gap 17.1 (5-19); Potassium 4.1 mmol/L (3.5-5.1)
[2024-07-13] MEDS: levothyroxine 25 mcg Tablet PO (06:13)
[2024-07-13] MEDS: pramipexole 0.25 mg Tablet PO ×3 (06:13→21:10)
[2024-07-13] MEDS: sertraline 100 mg Tablet PO (06:14)
[2024-07-13] MEDS: sucralfate 1 gm/10 mL Oral Liq UDC PO ×4 (06:14→20:07)
[2024-07-13 06:42] LABS: NT Pro B Type Natriuretic Pept 5761 pg/mL (0-125)
[2024-07-13 06:47] LABS: Glucose Point of Care 214 mg/dL (70-110)
--- NOTE | 2024-07-13 07:38 | P.PN_ITS ---
Subjective 2 Subjective: c/o edema, orthopnea, ALVAREZ. SOB Medications: Reviewed: Yes Medication Review Details: Current Medications Acetaminophen (Acetaminophen 325 Mg Tablet) 650 mg PO Q6H PRN PRN Reason: Mild/Mod Pain Or Temp >/= 101 Albuterol/Ipratropium (Ipratropium-Albuterol 3 Ml Neb) 3 ml INHALATION QID.RESPIRATORY [facility] Last Admin: 07/12/24 20:50 Dose: 3 ml Amlodipine Besylate (Amlodipine 10 Mg Tablet) 10 mg PO Q24H [facility] Last Admin: 07/12/24 12:12 Dose: 10 mg Atorvastatin Calcium (Atorvastatin 40 Mg Tablet) 20 mg PO QPM [facility] Last Admin: 07/12/24 18:03 Dose: 20 mg Bisacodyl (Bisacodyl 10 Mg Supp) 10 mg [place] DAILY PRN PRN Reason: Constipation Budesonide (Budesonide 0.5 Mg/2 Ml Neb) 0.5 mg INHALATION BID.RESPIRATORY [facility] Last Admin: 07/12/24 20:51 Dose: 0.5 mg Clonazepam (Clonazepam 1 Mg Tablet) 0.5 mg PO BEDTIME PRN PRN Reason: Sleep Ferrous Sulfate (Ferrous Sulfate Ec 325 Mg Tablet) 325 mg PO EVERY OTHER DAY [facility] Last Admin: 07/11/24 08:45 Dose: 325 mg Gabapentin (Gabapentin 300 Mg Capsule) 300 mg PO TID [facility] Last Admin: 07/12/24 21:09 Dose: 300 mg Glucagon (Glucagon 1 Mg/Ml Kit 1 Ml) 1 mg IM ONCE PRN; Protocol PRN Reason: Adult Acute Hypoglycemia Nursing Prot. Hydralazine HCl (Hydralazine 50 Mg Tablet) 100 mg PO TID [facility] Last Admin: 07/12/24 21:09 Dose: 100 mg Dextrose (D5w) 500 mls @ 0 mls/hr IV ONCE PRN; Protocol PRN Reason: Adult Acute Hypoglycemia Prot Dextrose (D10w) 125 mls @ 750 mls/hr IV PRN PRN; Protocol PRN Reason: Adult Acute Hypoglycemia Nursing Protocol Dextrose (D10w) 250 mls @ 1,000 mls/hr IV PRN PRN; Protocol PRN Reason: Adult Acute Hypoglycemia Nursing Protocol Insulin Glargine (Insulin Glargine 100 Units/1 Ml) 10 unit SUBCUT BID@0900,2100 [facility] Last Admin: 07/12/24 21:10 Dose: 10 unit Insulin Human Lispro (Insulin Lispro 100 Unit/1 Ml) 0 unit SUBCUT WM&BEDTIME [facility]; Protocol Last Admin: 07/12/24 21:10 Dose: 12 unit Isosorbide Mononitrate (Isosorbide Mononitrate Er 30 Mg Tablet) 30 mg PO BID [facility] Last Admin: 07/12/24 18:03 Dose: 30 mg Levothyroxine Sodium (Levothyroxine 25 Mcg Tablet) 25 mcg PO QAM [facility] Last Admin: 07/13/24 06:13 Dose: 25 mcg Metoprolol Tartrate (Metoprolol Tartrate 25 Mg Tablet) 25 mg PO BID@0900,2100 [facility] Last Admin: 07/12/24 21:09 Dose: 25 mg Morphine Sulfate (Morphine 4 Mg/Ml Sdv 1 Ml) 2 mg IVP Q4H PRN PRN Reason: SEVERE PAIN Naloxone HCl (Naloxone 0.4 Mg/Ml Sdv) 0.1 mg IVP Q2M PRN PRN Reason: OPIATERV Nicotine (Nicotine 14 Mg Patch) 1 patch TRANSDERMA DAILY [facility] Last Admin: 07/12/24 09:05 Dose: 1 patch Nystatin (Nystatin Powder 15 Gm Btl) 1 applic TOPICAL BID [facility] Last Admin: 07/12/24 18:04 Dose: 1 applic Ondansetron HCl (Ondansetron 2 Mg/Ml Sdv 2 Ml) 4 mg IVP Q8H PRN PRN Reason: vomiting, or N/V if npo Oseltamivir Phosphate (Oseltamivir Phosphate 30 Mg Capsule) 30 mg PO BID [facility] Stop: 07/13/24 08:59 Last Admin: 07/12/24 18:03 Dose: 30 mg Pantoprazole Sodium (Pantoprazole 40 Mg Sdv) 40 mg IVP Q12H [facility] Last Admin: 07/13/24 07:16 Dose: Not Given Pramipexole Dihydrochloride (Pramipexole 0.25 Mg Tablet) 0.25 mg PO TID PRN PRN Reason: Restless Leg Syndrome Last Admin: 07/13/24 06:13 Dose: 0.25 mg Sertraline HCl (Sertraline 100 Mg Tablet) 100 mg PO QAM [facility] Last Admin: 07/13/24 06:14 Dose: 100 mg Sucralfate (Sucralfate 1 Gm/10 Ml Oral Liq Udc) 1 gm PO AC&BEDTIME [facility] Last Admin: 07/13/24 06:14 Dose: 1 gm Tamsulosin HCl (Tamsulosin 0.4 Mg Capsule) 0.4 mg PO QPM [facility] Last Admin: 07/12/24 18:03 Dose: 0.4 mg Trazodone HCl (Trazodone 100 Mg Tablet) 150 mg PO BEDTIME [facility] Last Admin: 07/12/24 21:09 Dose: 150 mg Vitals/I&O/Wt Last Vital Signs Temp 98.2 F 07/13/24 03:43 Pulse 72 07/13/24 03:43 Resp 19 H 07/13/24 03:43 BP 136/63 07/13/24 03:43 Pulse Ox 94 07/13/24 03:43 O2 Del Method CPAP 07/13/24 03:43 O2 Flow Rate 4 07/12/24 20:52 FiO2 45 07/08/24 20:33 07/12/24 07/13/24 07/13/24 22:59 06:59 14:59 Intake Total 800 / 800 Output Total 3500 / 3500 700 / 4200 Balance -3500 / -3500 100 / -3400 Weight last 48 hrs Weight 181.936 kg Physical Exam 2 Narrative: Morbidly obese sitting up in chair using nasal cannula oxygen. Vital signs stable. HEENT normocephalic atraumatic. 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 Lungs diminished and crackles. Heart is regular positive S1-S2. Abdomen soft positive bowel sounds. Extremities 2-3+ pitting edema bilaterally. Neuro awake alert oriented x 3. Poor distal pulses. Urinary Catheter Management: Briceño: Cath Placed During This Visit: yes Reason for Continuing Indwelling Catheter: Other Urinary Catheter Date of Insertion: 07/08/24 Urinary Catheter Time of Insertion: 13:00 Data 07/13/24 05:00 07/13/24 05:00 Micro: Microbiology 07/08/24 12:32 Blood Culture - Final Blood Staphylococcus Auricularis 07/11/24 04:59 Blood Culture - Preliminary Blood NEGATIVE TO DATE 07/11/24 04:45 Blood Culture - Preliminary Blood NEGATIVE TO DATE A&P Assessment and plan (1) Acute kidney injury superimposed on CKD: 69-year-old gentleman here with influenza A. Patient has underlying hypertension diabetes hypothyroidism. The patient has heart failure with preserved EF. 1. Patient is CKD stage IV baseline creatinine mid twos working etiology is hypertension diabetes and cardiorenal syndrome. Acute kidney injury has improved. 2. anemia - hgb stable at 7.6. ferritin 151 iron sat 12%- givr iv iron and epo 3. HFpEF- BNP 5761- diuresis- lasix 60 iv bid and metolazone. dec amlodipine dose. can stop hydralazine of bp drops 4. COPD 5. replace vit d- was low in may. pth low in may 2024 6. check tsh 7. dm control seen and examine dw/ RN using A/V equipment. pt consents to telehealth Plan see above PDMP PDMP Reviewed: Not Reviewed Attestations 2 Medical Necessity Statement*: CKF, acute on chronic HFpEF, obesity Time Spent in Patient Care: 16 - 35 minutes (>than 50% of time sp ent in counselling and/or direct pt care on unit) . Coding Level of Care Code Acute Code for Chg Fwd Diagnoses Acute kidney injury superimposed on CKD N17.9; N18.9
[2024-07-13] MEDS: ipratropium-albuterol 3 mL Neb INHALATION ×3 (07:42→20:36)
[2024-07-13] MEDS: budesonide 0.5 mg/2 mL Neb INHALATION ×2 (07:42→20:36)
[2024-07-13] MEDS: isosorbide mononitrate ER 30 mg Tablet PO ×2 (08:33→17:33)
[2024-07-13] MEDS: amlodipine 10 mg Tablet 5 MG PO (08:33)
[2024-07-13] MEDS: gabapentin 300 mg Capsule PO ×3 (08:34→20:08)
[2024-07-13] MEDS: metoprolol tartrate 25 mg Tablet PO ×2 (08:34→20:08)
[2024-07-13] MEDS: hyDRALAzine 50 mg Tablet 100 MG PO ×3 (08:34→20:07)
[2024-07-13] MEDS: ferrous sulfate EC 325 mg Tablet PO (08:34)
[2024-07-13] MEDS: insulin lispro 100 unit/1 mL SUBCUT ×4 (08:34→21:08)
[2024-07-13] MEDS: insulin glargine 100 units/1 mL 10 UNIT SUBCUT ×2 (08:36→21:09)
[2024-07-13] MEDS: epoetin alfa 20,000 unit/mL MDV (ESRD) 10000 UNIT SUBCUT (08:36)
[2024-07-13] MEDS: metOLazone 5 MG Tablet 2.5 MG PO (08:44)
[2024-07-13] MEDS: ergocalciferol (vitamin D2) 50,000 Unit Capsule 50000 UNIT PO (08:45)
[2024-07-13] MEDS: nicotine 14 mg Patch 1 PATCH TRANSDERMA (08:45)
[2024-07-13] MEDS: nystatin powder 15 gm Btl 1 APPLIC TOPICAL ×2 (08:46→17:33)
[2024-07-13 09:24] LABS: Thyroid Stimulating Hormone 1.31 uIU/mL (0.27-4.20); Uric Acid 15.1 mg/dL (3.4-7.0)
--- NOTE | 2024-07-13 09:49 | PICC.NOTE ---
Referred to vascular access nurse due to no access. 20 guage peripheral IV started to left forearm using US guidance x 1 stick. Good blood return noted. Flushes without diffiuculty. Report given to bedside nurse JORGITO Verma.
[2024-07-13] MEDS: pantoprazole 40 mg SDV IVP ×2 (10:25→21:09)
[2024-07-13] MEDS: FUROsemide 10 mg/mL SDV 10mL 60 MG IVP ×2 (10:25→20:09)
[2024-07-13] MEDS: ferric gluconate 125 MG in sodium chloride 0.9% (100 ml) 100 ML 110 MG IV (10:25)
[2024-07-13 11:28] LABS: Glucose Point of Care 270 mg/dL (70-110)
[2024-07-13] MEDS: LORazepam 0.5 mg Tablet PO (13:19)
--- NOTE | 2024-07-13 15:24 | PC.SOCIAL ---
IMM updated IMM dated and initialed, copy given to patient and copy placed in chart
[2024-07-13 17:09] LABS: Glucose Point of Care 224 mg/dL (70-110)
[2024-07-13] MEDS: tamsulosin 0.4 mg Capsule PO (17:33)
[2024-07-13] MEDS: atorvastatin 40 mg Tablet 20 MG PO (17:33)
--- NOTE | 2024-07-13 17:46 | PC.OT ---
OT tx attempted 2x today. First time pt reports he is in pain and needs his nurse to take care of my groin . Second time pt eating dinner. OT tx to be attempted again tomorrow.
--- NOTE | 2024-07-13 18:46 | PM.PN ---
Subjective Subjective: 69-year-old with past medical history of hypertension, hyperlipidemia, type 2 diabetes mellitus, chronic obstructive pulmonary disease (COPD), stage 3 chronic kidney disease (CKD), and heart failure presents with worsening dyspnea. The patient uses BiPAP at night at his nursing facility ([facility]) and has continued to use it during this hospitalization. He was admitted on 07/08/2024 and treated for influenza A with Tamiflu. Initial workup revealed a hemoglobin of 6.2 g/dL, hematocrit of 21.6%, platelets of 164 K/uL, and creatinine of 2.7 mg/dL. He received 2 units of packed red blood cells on admission. The patient denies any overt bleeding but notes dark stools, which he attributes to iron supplementation. Hemoglobin improved to 7.6 g/dL following transfusion. The patient was also treated for sepsis secondary to a urinary tract infection (UTI) with antibiotics, which he completed on 07/12/2024. Blood cultures grew Staphylococcus species in 1 out of 4 bottles, thought to be a contaminant. Despite initial improvement in his breathing, the patient reported worsening dyspnea this morning (07/13/2024). He typically requires 4L of supplemental oxygen at home. Chest X-ray on 07/08/2024 showed improvement in fluid overload. Vitals/I&O/Wt Last Vital Signs Temp 97.5 F L 07/13/24 15:15 Pulse 71 07/13/24 15:15 Resp 18 07/13/24 15:15 BP 188/71 07/13/24 15:15 Pulse Ox 96 07/13/24 15:15 O2 Del Method Nasal Cannula 07/13/24 15:15 O2 Flow Rate 4 07/13/24 15:15 FiO2 45 07/08/24 20:33 07/13/24 07/13/24 07/13/24 06:59 14:59 22:59 Intake Total 800 / 800 350 / 350 Output Total 700 / 4200 750 / 750 1600 / 2350 Balance 100 / -3400 -400 / -400 -1600 / -2000 Weight last 48 hrs Weight 181.936 kg Physical Exam Narrative: No distress HEENT normocephalic atraumatic. 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 Lungs diminished and crackles. Heart is regular positive S1-S2. Abdomen soft positive bowel sounds. Extremities 2-3+ pitting edema bilaterally. Neuro awake alert oriented x 3. Poor distal pulses. Urinary Catheter Management: Briceño: Cath Placed During This Visit: yes Reason for Continuing Indwelling Catheter: Other Urinary Catheter Date of Insertion: 07/08/24 Urinary Catheter Time of Insertion: 13:00 Data 07/13/24 05:00 07/13/24 05:00 Micro: Microbiology 07/08/24 12:50 Blood Culture - Final Blood NO GROWTH AFTER 5 DAYS A&P Assessment and plan (1) Acute on chronic respiratory failure with hypoxia and hypercapnia: (2) Sepsis: (3) Chronic hypoxemic respiratory failure: (4) Heart failure with preserved ejection fraction: (5) BPH (benign prostatic hyperplasia): Plan Acute on Chronic Hypoxemic Respiratory Failure secondary to COPD Exacerbation and Influenza A - Patient with known COPD presenting with worsening dyspnea in the setting of influenza A infection. - Chest X-ray on 07/08/2024 showed improvement in fluid overload following initial diuresis. Differential Diagnosis: 1. COPD exacerbation triggered by influenza A infection. 2. Concomitant fluid overload contributing to dyspnea. Plan: 1. Continue BiPAP as tolerated. 2. Maintain supplemental oxygen to keep saturations > 90%. 3. Continue Tamiflu for influenza A treatment. 4. Chest physiotherapy and incentive spirometry. 5. Monitor respiratory status closely. Acute on chronic Heart Failure - Optimize fluid status with diuretic therapy as guided by Nephrology. Currently on Lasix 60 mg IV q12 + Metolazone - Monitor daily weights, fluid intake, and output. - Continue home heart failure medications as tolerated. - BMP in am Anemia - Hemoglobin of 6.2 g/dL and hematocrit of 21.6% on admission, requiring transfusion of 2 units of packed red blood cells. Hemoglobin improved to 7.6 g/dL post-transfusion. Differential Diagnosis: 1. Anemia of chronic disease in the setting of CKD and heart failure. 2. Occult gastrointestinal bleeding, though EGD was unremarkable and no overt bleeding noted. Plan: 1. Monitor hemoglobin and hematocrit closely. 2. Continue iron supplementation. 4. Consider repeat EGD if anemia persists or worsens. Stage 3 Chronic Kidney Disease - Baseline creatinine of 2.7 mg/dL on admission, consistent with known stage 3 CKD. Creatinine stable at 2.6 mg/dL on 07/13/2024. Plan: 1. Continue to monitor renal function closely. 2. Nephrology to manage CKD and adjust diuretic therapy as needed. 3. Avoid nephrotoxic medications. Urinary Tract Infection - Treated for UTI and sepsis with antibiotics, completed on 07/12/2024. Blood cultures grew Staphylococcus species in 1 out of 4 bottles, likely contaminant. Plan: 1. Monitor for signs and symptoms of ongoing infection. 2. Repeat urinalysis and culture if clinically indicated. Type 2 Diabetes Mellitus - Continue home diabetes medications. - Monitor blood glucose levels closely. - Adjust insulin regimen as needed for optimal glycemic control. Hypertension - Continue home antihypertensive medications. - Monitor blood pressure closely. - Titrate medications as needed to maintain goal blood pressure. Hyperlipidemia - Continue statin Additional Notes - Lower extremity ultrasound negative for deep vein thrombosis. - Renal ultrasound not performed during this admission. PDMP PDMP Reviewed: Not Reviewed Attestations Medical Necessity Statement*: Will need further day in hospital for IV diuretics Coding Level of Care Code Acute Code for Chg Fwd Diagnoses Acute on chronic respiratory failure with hypoxia and hypercapnia J96.21; J96.22 Sepsis A41.9 Chronic hypoxemic respiratory failure J96.11 Heart failure with preserved ejection fraction I50.30 BPH (benign prostatic hyperplasia) N40.0
[2024-07-13] MEDS: trazodone 100 mg Tablet 150 MG PO (20:07)
[2024-07-13 20:30] LABS: Glucose Point of Care 331 mg/dL (70-110)
[2024-07-14] VITALS (10 sets, daily range): BP systolic 156–167; BP diastolic 60–74; PULSE 66–90; RESP 16–20; TEMP 36.4–36.7; O2SAT 92–97
[2024-07-14] MEDS: sucralfate 1 gm/10 mL Oral Liq UDC PO ×4 (06:07→21:27)
[2024-07-14] MEDS: sertraline 100 mg Tablet PO (06:07)
[2024-07-14] MEDS: levothyroxine 25 mcg Tablet PO (06:08)
[2024-07-14 06:13] LABS: Glucose Point of Care 200 mg/dL (70-110)
[2024-07-14 06:47] LABS: Basophils % 0.3 %; Eosinophils # 0.3 10^3/uL (0.0-0.8); Hematocrit 24.8 % (37-53); Lymphocytes % 16.1 %; Mean Corpuscular HGB Conc 30.2 g/dL (30-55); Mean Corpuscular Hemoglobin 27.9 pg (27-33); Mean Corpuscular Volume 92.2 fl (82-101); Mean Platelet Volume 10.3 fL (7.4-10.4); Monocytes # 0.6 10^3/uL (0.2-0.9); Monocytes % 8.7 %; Neutrophils # 4.41 10^3/uL (1.8-7.7); Neutrophils % 70.1 %; Nucleated Red Blood Cells % 0 %; Platelet Count 139 10^3/cmm (157-399); Red Blood Count 2.69 10^6/uL (3.85-5.65); Red Cell Distribution Width 13.3 % (12.1-15.1); White Blood Count 6.29 10^3/uL (3.29-11.43)
[2024-07-14 07:09] LABS: Alanine Aminotransferase 13 U/L (0-41); Alkaline Phosphatase 131 U/L (40-130); Anion Gap 13.7 (5-19); Aspartate Amino Transferase 21 U/L (0-40); Blood Urea Nitrogen 62 mg/dL (8-23); Calcium 8.3 mg/dL (8.5-10.5); Carbon Dioxide 30 mmol/L (22-29); Chloride 99 mmol/L (98-107); Creatinine Clr Calc Pharmacy 49.7035; Globulin 3.4 g/dL (1.3-4.6); Glucose 204 mg/dL (65-115); Magnesium 2.2 mg/dL (1.7-2.3); Osmolality Calculated 311 mOsm/kg (285-295); Phosphorus 3.3 mg/dL (2.5-4.5); Potassium 3.7 mmol/L (3.5-5.1); Sodium 139 mmol/L (136-145); Total Bilirubin 0.2 mg/dL (0.15-1.2); Total Protein 6.4 g/dL (6.6-8.7)
[2024-07-14 07:12] LABS: Calcium 8.5 mg/dL (8.5-10.5)
[2024-07-14 07:18] LABS: Parathyroid Hormone 95.4 pg/mL (15-65)
[2024-07-14] MEDS: budesonide 0.5 mg/2 mL Neb INHALATION ×2 (07:30→20:10)
[2024-07-14] MEDS: ipratropium-albuterol 3 mL Neb INHALATION ×3 (07:30→20:10)
[2024-07-14 07:31] LABS: 25 Hydroxy Vitamin D 7 ng/mL (30-100)
[2024-07-14] MEDS: insulin glargine 100 units/1 mL 10 UNIT SUBCUT ×2 (08:04→21:26)
[2024-07-14] MEDS: insulin lispro 100 unit/1 mL SUBCUT ×4 (08:04→21:26)
[2024-07-14] MEDS: pantoprazole 40 mg SDV IVP ×2 (08:05→21:29)
[2024-07-14] MEDS: FUROsemide 10 mg/mL SDV 10mL 60 MG IVP (08:05)
[2024-07-14] MEDS: hyDRALAzine 50 mg Tablet 100 MG PO ×3 (08:06→21:28)
[2024-07-14] MEDS: metOLazone 5 MG Tablet 2.5 MG PO (08:06)
[2024-07-14] MEDS: isosorbide mononitrate ER 30 mg Tablet PO ×2 (08:06→17:29)
[2024-07-14] MEDS: gabapentin 300 mg Capsule PO (08:06)
[2024-07-14] MEDS: nicotine 14 mg Patch 1 PATCH TRANSDERMA (08:06)
[2024-07-14] MEDS: amlodipine 10 mg Tablet 5 MG PO (08:07)
[2024-07-14] MEDS: nystatin powder 15 gm Btl 1 APPLIC TOPICAL ×2 (08:09→17:29)
[2024-07-14] MEDS: metoprolol tartrate 25 mg Tablet PO ×2 (08:10→21:28)
[2024-07-14] MEDS: gabapentin 100 mg Capsule PO ×3 (09:49→21:28)
[2024-07-14] MEDS: FUROsemide 10 mg/mL SDV 2mL 20 MG IVP (09:49)
--- NOTE | 2024-07-14 10:26 | PM.PN ---
Subjective Subjective: less sob. decreasing edema. still weak and volume overloaded and requiring nc 02 Medications: Reviewed: Yes Medication Review Details: Current Medications Acetaminophen (Acetaminophen 325 Mg Tablet) 650 mg PO Q6H PRN PRN Reason: Mild/Mod Pain Or Temp >/= 101 Albuterol/Ipratropium (Ipratropium-Albuterol 3 Ml Neb) 3 ml INHALATION QID.RESPIRATORY [facility] Last Admin: 07/14/24 07:30 Dose: 3 ml Amlodipine Besylate (Amlodipine 10 Mg Tablet) 5 mg PO Q24H [facility] Last Admin: 07/14/24 08:07 Dose: 5 mg Atorvastatin Calcium (Atorvastatin 40 Mg Tablet) 20 mg PO QPM [facility] Last Admin: 07/13/24 17:33 Dose: 20 mg Bisacodyl (Bisacodyl 10 Mg Supp) 10 mg [place] DAILY PRN PRN Reason: Constipation Budesonide (Budesonide 0.5 Mg/2 Ml Neb) 0.5 mg INHALATION BID.RESPIRATORY [facility] Last Admin: 07/14/24 07:30 Dose: 0.5 mg Clonazepam (Clonazepam 1 Mg Tablet) 0.5 mg PO BEDTIME PRN PRN Reason: Sleep Ergocalciferol (Ergocalciferol (Vitamin D2) 50,000 Unit Capsule) 50,000 unit PO Q7D [facility] Last Admin: 07/13/24 08:45 Dose: 50,000 unit Ferrous Sulfate (Ferrous Sulfate Ec 325 Mg Tablet) 325 mg PO EVERY OTHER DAY [facility] Last Admin: 07/13/24 08:34 Dose: 325 mg Furosemide (Furosemide 10 Mg/Ml Sdv 10ml) 80 mg IVP Q12H [facility] Last Admin: 07/14/24 09:10 Dose: Not Given Gabapentin (Gabapentin 100 Mg Capsule) 100 mg PO TID [facility] Last Admin: 07/14/24 09:49 Dose: 100 mg Glucagon (Glucagon 1 Mg/Ml Kit 1 Ml) 1 mg IM ONCE PRN; Protocol PRN Reason: Adult Acute Hypoglycemia Nursing Prot. Hydralazine HCl (Hydralazine 50 Mg Tablet) 100 mg PO TID [facility] Last Admin: 07/14/24 08:06 Dose: 100 mg Dextrose (D5w) 500 mls @ 0 mls/hr IV ONCE PRN; Protocol PRN Reason: Adult Acute Hypoglycemia Prot Dextrose (D10w) 125 mls @ 750 mls/hr IV PRN PRN; Protocol PRN Reason: Adult Acute Hypoglycemia Nursing Protocol Dextrose (D10w) 250 mls @ 1,000 mls/hr IV PRN PRN; Protocol PRN Reason: Adult Acute Hypoglycemia Nursing Protocol Insulin Glargine (Insulin Glargine 100 Units/1 Ml) 10 unit SUBCUT BID@0900,2100 [facility] Last Admin: 07/14/24 08:04 Dose: 10 unit Insulin Human Lispro (Insulin Lispro 100 Unit/1 Ml) 0 unit SUBCUT WM&BEDTIME [facility]; Protocol Last Admin: 07/14/24 08:04 Dose: 9 unit Isosorbide Mononitrate (Isosorbide Mononitrate Er 30 Mg Tablet) 30 mg PO BID [facility] Last Admin: 07/14/24 08:06 Dose: 30 mg Levothyroxine Sodium (Levothyroxine 25 Mcg Tablet) 25 mcg PO QAM [facility] Last Admin: 07/14/24 06:08 Dose: 25 mcg Metolazone (Metolazone 5 Mg Tablet) 2.5 mg PO DAILY [facility] Last Admin: 07/14/24 08:06 Dose: 2.5 mg Metoprolol Tartrate (Metoprolol Tartrate 25 Mg Tablet) 25 mg PO BID@0900,2100 [facility] Last Admin: 07/14/24 08:10 Dose: 25 mg Morphine Sulfate (Morphine 4 Mg/Ml Sdv 1 Ml) 2 mg IVP Q4H PRN PRN Reason: SEVERE PAIN Naloxone HCl (Naloxone 0.4 Mg/Ml Sdv) 0.1 mg IVP Q2M PRN PRN Reason: OPIATERV Nicotine (Nicotine 14 Mg Patch) 1 patch TRANSDERMA DAILY [facility] Last Admin: 07/14/24 08:06 Dose: 1 patch Nystatin (Nystatin Powder 15 Gm Btl) 1 applic TOPICAL BID [facility] Last Admin: 07/14/24 08:09 Dose: 1 applic Ondansetron HCl (Ondansetron 2 Mg/Ml Sdv 2 Ml) 4 mg IVP Q8H PRN PRN Reason: vomiting, or N/V if npo Pantoprazole Sodium (Pantoprazole 40 Mg Sdv) 40 mg IVP Q12H [facility] Last Admin: 07/14/24 08:05 Dose: 40 mg Pramipexole Dihydrochloride (Pramipexole 0.25 Mg Tablet) 0.25 mg PO TID PRN PRN Reason: Restless Leg Syndrome Last Admin: 07/13/24 21:10 Dose: 0.25 mg Sertraline HCl (Sertraline 100 Mg Tablet) 100 mg PO QAM [facility] Last Admin: 07/14/24 06:07 Dose: 100 mg Sucralfate (Sucralfate 1 Gm/10 Ml Oral Liq Udc) 1 gm PO AC&BEDTIME [facility] Last Admin: 07/14/24 09:49 Dose: 1 gm Tamsulosin HCl (Tamsulosin 0.4 Mg Capsule) 0.4 mg PO QPM [facility] Last Admin: 07/13/24 17:33 Dose: 0.4 mg Trazodone HCl (Trazodone 100 Mg Tablet) 150 mg PO BEDTIME [facility] Last Admin: 07/13/24 20:07 Dose: 150 mg Vitals/I&O/Wt Last Vital Signs Temp 97.5 F L 07/14/24 07:59 Pulse 66 07/14/24 07:59 Resp 18 07/14/24 07:59 BP 166/74 07/14/24 07:59 Pulse Ox 92 07/14/24 07:59 O2 Del Method Nasal Cannula 07/14/24 07:59 O2 Flow Rate 4 07/14/24 08:00 FiO2 45 07/08/24 20:33 07/13/24 07/14/24 07/14/24 22:59 06:59 14:59 Output Total 1600 / 2350 900 / 3250 1000 / 1000 Balance -1600 / -2000 -900 / -2900 -1000 / -1000 Weight last 48 hrs Weight 182.571 kg Weight 181.936 kg Physical Exam Narrative: Morbidly obese sitting up in bed, using nasal cannula oxygen. Vital signs stable. HEENT normocephalic atraumatic. Neck is supple Lungs-coarses sounds more on right then left Heart is regular positive S1-S2. Abdomen soft positive bowel sounds. Extremities 2+ pitting edema bilaterally -improved overnight. Neuro awake alert oriented x 3. Poor distal pulses. Urinary Catheter Management: Briceño: Cath Placed During This Visit: yes Reason for Continuing Indwelling Catheter: Other Urinary Catheter Date of Insertion: 07/08/24 Urinary Catheter Time of Insertion: 13:00 Data 07/14/24 06:29 07/14/24 06:29 Micro: Microbiology 07/08/24 12:50 Blood Culture - Final Blood NO GROWTH AFTER 5 DAYS A&P Assessment and plan (1) Acute kidney injury superimposed on CKD: 69-year-old gentleman here with influenza A. Patient has underlying hypertension diabetes hypothyroidism. The patient has heart failure with preserved EF. 1. Patient is CKD stage IV baseline creatinine mid twos working etiology is hypertension diabetes and cardiorenal syndrome. Acute kidney injury has improved. he may need k. if bicarb raises too high- then will dec furosemide and add acetazolamide 2. anemia - hgb stable at 7.5. ferritin 151 iron sat 12%- give iv iron and epo he received 2 u prbc on this admission 3. HFpEF- BNP 5761- diuresis- inc lasix to 80 mg iv bid and cont metolazone. dec amlodipine dose. can stop hydralazine of bp drops 4. COPD 5. replace vit d- level is 7. pth 95-acceptable for CKD stage 4 6. check tsh 7. dm control seen and examined w/ RN using A/V equipment. pt consents to telehealth Plan see above PDMP PDMP Reviewed: Not Reviewed Attestations Medical Necessity Statement*: diuresis needed Time Spent in Patient Care: 16 - 35 minutes (>than 50% of time spent in counselling and/or direct pt care on unit). Coding Level of Care Code Acute Code for Chg Fwd Diagnoses Acute kidney injury superimposed on CKD N17.9; N18.9
[2024-07-14 10:48] LABS: Glucose Point of Care 246 mg/dL (70-110)
[2024-07-14] MEDS: potassium chloride ER 20 mEq Tablet PO ×2 (11:27)
[2024-07-14 16:39] LABS: Glucose Point of Care 218 mg/dL (70-110)
[2024-07-14] MEDS: atorvastatin 40 mg Tablet 20 MG PO (17:29)
[2024-07-14] MEDS: tamsulosin 0.4 mg Capsule PO (17:29)
--- NOTE | 2024-07-14 18:48 | PM.PN ---
Subjective Subjective: 69-year-old with past medical history of hypertension, hyperlipidemia, type 2 diabetes mellitus, chronic obstructive pulmonary disease (COPD), stage 3 chronic kidney disease (CKD), and heart failure presents with worsening dyspnea. The patient uses BiPAP at night at his nursing facility ([facility]) and has continued to use it during this hospitalization. He was admitted on 07/08/2024 and treated for influenza A with Tamiflu. Initial workup revealed a hemoglobin of 6.2 g/dL, hematocrit of 21.6%, platelets of 164 K/uL, and creatinine of 2.7 mg/dL. He received 2 units of packed red blood cells on admission. The patient denies any overt bleeding but notes dark stools, which he attributes to iron supplementation. Hemoglobin improved to 7.6 g/dL following transfusion. The patient was also treated for sepsis secondary to a urinary tract infection (UTI) with antibiotics, which he completed on 07/12/2024. Blood cultures grew Staphylococcus species in 1 out of 4 bottles, thought to be a contaminant. Despite initial improvement in his breathing, the patient reported worsening dyspnea this morning (07/13/2024). He typically requires 4L of supplemental oxygen at home. Chest X-ray on 07/08/2024 showed improvement in fluid overload. 07/14 - Noted to have ongoing lower extremity edema - No fever, chills, nausea or vomiting. Vitals/I&O/Wt Last Vital Signs Temp 97.6 F 07/14/24 15:55 Pulse 77 07/14/24 15:55 Resp 16 07/14/24 15:55 BP 165/61 07/14/24 15:55 Pulse Ox 92 07/14/24 15:55 O2 Del Method CPAP 07/14/24 15:55 O2 Flow Rate 4 07/14/24 08:00 FiO2 45 07/08/24 20:33 07/14/24 07/14/24 07/14/24 06:59 14:59 22:59 Output Total 900 / 3250 1700 / 1700 900 / 2600 Balance -900 / -2900 -1700 / -1700 -900 / -2600 Weight last 48 hrs Weight 182.571 kg Weight 181.936 kg Physical Exam Narrative: No distress HEENT normocephalic atraumatic. 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 Lungs diminished and crackles. Heart is regular positive S1-S2. Abdomen soft positive bowel sounds. Extremities 2-3+ pitting edema bilaterally. Neuro awake alert oriented x 3. Poor distal pulses. Urinary Catheter Management: Briceño: Cath Placed During This Visit: yes Reason for Continuing Indwelling Catheter: Other Urinary Catheter Date of Insertion: 07/08/24 Urinary Catheter Time of Insertion: 13:00 Data 07/14/24 06:29 07/14/24 06:29 Micro: Microbiology 07/08/24 12:50 Blood Culture - Final Blood NO GROWTH AFTER 5 DAYS A&P Assessment and plan (1) Acute on chronic respiratory failure with hypoxia and hypercapnia: (2) Sepsis: (3) Chronic hypoxemic respiratory failure: (4) Heart failure with preserved ejection fraction: (5) BPH (benign prostatic hyperplasia): Plan Acute on Chronic Hypoxemic Respiratory Failure secondary to COPD Exacerbation and Influenza A - Patient with known COPD presenting with worsening dyspnea in the setting of influenza A infection. - Chest X-ray on 07/08/2024 showed improvement in fluid overload following initial diuresis. Plan: 1. Continue PPV Qhs 2. Maintain supplemental oxygen to keep saturations > 90%. 3. Tamiflu for influenza A Acute on chronic Heart Failure - Optimize fluid status with diuretic therapy as guided by Nephrology. Lasix 60 mg IV q12 dose was increased to 80 mg IV 8hr today. - Monitor daily weights, fluid intake, and output. - Continue home heart failure medications as tolerated. - BMP in am - Appreciate nephrology assistance Anemia - Hemoglobin of 6.2 g/dL and hematocrit of 21.6% on admission, requiring transfusion of 2 units of packed red blood cells. Hemoglobin improved to 7.6 g/dL post-transfusion. - Hemoglobin stable - No evidence of bleeding - Taking iron, noted stools not bloody. Plan: 1. Monitor hemoglobin and hematocrit closely. 2. Consider repeat EGD if anemia persists or worsens. Stage 3 Chronic Kidney Disease - Baseline creatinine of 2.7 mg/dL on admission, consistent with known stage 3 CKD. Creatinine stable at 2.4 mg/dL on 07/13/2024. Plan: 1. Continue to monitor renal function closely. 2. Nephrology to manage CKD and adjust diuretic therapy as needed. 3. Avoid nephrotoxic medications. Urinary Tract Infection - Treated for UTI and sepsis with antibiotics, completed on 07/12/2024. Blood cultures grew Staphylococcus species in 1 out of 4 bottles, likely contaminant. Plan: 1. Monitor for signs and symptoms of ongoing infection. Type 2 Diabetes Mellitus - Continue home diabetes medications. - Monitor blood glucose levels closely. - Adjust insulin regimen as needed for optimal glycemic control. Hypertension - Continue home antihypertensive medications. - Monitor blood pressure closely. - Titrate medications as needed to maintain goal blood pressure. Hyperlipidemia - Continue statin Additional Notes - Lower extremity ultrasound negative for deep vein thrombosis. - Renal ultrasound not performed during this admission. PDMP PDMP Reviewed: Not Reviewed Attestations Medical Necessity Statement*: Will need further day in hospital for IV diuretics Coding Level of Care Code Acute Code for Chg Fwd Diagnoses Acute on chronic respiratory failure with hypoxia and hypercapnia J96.21; J96.22 Sepsis A41.9 Chronic hypoxemic respiratory failure J96.11 Heart failure with preserved ejection fraction I50.30 BPH (benign prostatic hyperplasia) N40.0
[2024-07-14 20:55] LABS: Glucose Point of Care 237 mg/dL (70-110)
[2024-07-14] MEDS: trazodone 100 mg Tablet 150 MG PO (21:27)
[2024-07-14] MEDS: FUROsemide 10 mg/mL SDV 10mL 80 MG IVP (21:28)
[2024-07-14] MEDS: pramipexole 0.25 mg Tablet PO (21:30)
[2024-07-14] MEDS: CLONazepam 1 mg Tablet 0.5 MG PO (21:32)
[2024-07-15] VITALS: BP 166/69; PULSE 73; RESP 18; TEMP 36.9; O2SAT 95
[2024-07-15 03:10] LABS: Basophils % 0.3 %; Eosinophils # 0.3 10^3/uL (0.0-0.8); Hematocrit 25.4 % (37-53); Mean Corpuscular HGB Conc 29.9 g/dL (30-55); Mean Corpuscular Hemoglobin 27.3 pg (27-33); Mean Corpuscular Volume 91.4 fl (82-101); Mean Platelet Volume 9.9 fL (7.4-10.4); Monocytes # 0.6 10^3/uL (0.2-0.9); Monocytes % 8.4 %; Neutrophils # 4.71 10^3/uL (1.8-7.7); Neutrophils % 71.5 %; Nucleated Red Blood Cells % 0 %; Platelet Count 145 10^3/cmm (157-399); Red Blood Count 2.78 10^6/uL (3.85-5.65); Red Cell Distribution Width 13.2 % (12.1-15.1); White Blood Count 6.58 10^3/uL (3.29-11.43)
[2024-07-15 03:31] LABS: Alanine Aminotransferase 13 U/L (0-41); Albumin Level 3.1 g/dL (3.5-5.2); Alkaline Phosphatase 133 U/L (40-130); Anion Gap 12.6 (5-19); Aspartate Amino Transferase 21 U/L (0-40); Blood Urea Nitrogen 63 mg/dL (8-23); Calcium 8.3 mg/dL (8.5-10.5); Carbon Dioxide 30 mmol/L (22-29); Chloride 99 mmol/L (98-107); Creatinine Clr Calc Pharmacy 49.7035; Globulin 3.4 g/dL (1.3-4.6); Glucose 201 mg/dL (65-115); Magnesium 2.1 mg/dL (1.7-2.3); Osmolality Calculated 310 mOsm/kg (285-295); Phosphorus 2.6 mg/dL (2.5-4.5); Potassium 3.6 mmol/L (3.5-5.1); Sodium 138 mmol/L (136-145); Total Bilirubin 0.2 mg/dL (0.15-1.2); Total Protein 6.5 g/dL (6.6-8.7)
[2024-07-15 04:00] VITALS: BP 189/90; PULSE 76; RESP 18; TEMP 37; O2SAT 96
[2024-07-15] MEDS: sucralfate 1 gm/10 mL Oral Liq UDC PO ×2 (06:27→12:24)
[2024-07-15] MEDS: sertraline 100 mg Tablet PO (06:27)
[2024-07-15] MEDS: levothyroxine 25 mcg Tablet PO (06:27)
[2024-07-15 06:30] LABS: Glucose Point of Care 210 mg/dL (70-110)
[2024-07-15 07:09] VITALS: BP 198/73; PULSE 72; RESP 17; TEMP 36.7; O2SAT 97
[2024-07-15] MEDS: nicotine 14 mg Patch 1 PATCH TRANSDERMA (09:05)
[2024-07-15] MEDS: gabapentin 100 mg Capsule PO (09:05)
[2024-07-15] MEDS: hyDRALAzine 50 mg Tablet 100 MG PO (09:05)
[2024-07-15] MEDS: amlodipine 10 mg Tablet 5 MG PO (09:06)
[2024-07-15] MEDS: isosorbide mononitrate ER 30 mg Tablet PO (09:07)
[2024-07-15] MEDS: ferrous sulfate EC 325 mg Tablet PO (09:07)
[2024-07-15] MEDS: FUROsemide 10 mg/mL SDV 10mL 80 MG IVP (09:07)
[2024-07-15] MEDS: metOLazone 5 MG Tablet 2.5 MG PO (09:16)
[2024-07-15] MEDS: pramipexole 0.25 mg Tablet PO (09:16)
[2024-07-15] MEDS: metoprolol tartrate 25 mg Tablet PO (09:16)
[2024-07-15] MEDS: pantoprazole 40 mg SDV IVP (09:17)
[2024-07-15] MEDS: insulin lispro 100 unit/1 mL SUBCUT ×2 (09:17→12:24)
[2024-07-15] MEDS: insulin glargine 100 units/1 mL 10 UNIT SUBCUT (09:25)
[2024-07-15] MEDS: nystatin powder 15 gm Btl 1 APPLIC TOPICAL (09:26)
--- NOTE | 2024-07-15 09:36 | PM.PN ---
Subjective Subjective: still swollen but improving w/ diuresis. dec edema and shortness of breath. still on Medications: Reviewed: Yes Medication Review Details: Current Medications Acetaminophen (Acetaminophen 325 Mg Tablet) 650 mg PO Q6H PRN PRN Reason: Mild/Mod Pain Or Temp >/= 101 Albuterol/Ipratropium (Ipratropium-Albuterol 3 Ml Neb) 3 ml INHALATION QID.RESPIRATORY ARMANDO Last Admin: 07/14/24 20:10 Dose: 3 ml Amlodipine Besylate (Amlodipine 10 Mg Tablet) 5 mg PO Q24H ARMANDO Last Admin: 07/15/24 09:06 Dose: 5 mg Atorvastatin Calcium (Atorvastatin 40 Mg Tablet) 20 mg PO QPM ARMANDO Last Admin: 07/14/24 17:29 Dose: 20 mg Bisacodyl (Bisacodyl 10 Mg Supp) 10 mg SD DAILY PRN PRN Reason: Constipation Budesonide (Budesonide 0.5 Mg/2 Ml Neb) 0.5 mg INHALATION BID.RESPIRATORY [facility] Last Admin: 07/14/24 20:10 Dose: 0.5 mg Clonazepam (Clonazepam 1 Mg Tablet) 0.5 mg PO BEDTIME PRN PRN Reason: Sleep Last Admin: 07/14/24 21:32 Dose: 0.5 mg Ergocalciferol (Ergocalciferol (Vitamin D2) 50,000 Unit Capsule) 50,000 unit PO Q7D ARMANDO Last Admin: 07/13/24 08:45 Dose: 50,000 unit Ferrous Sulfate (Ferrous Sulfate Ec 325 Mg Tablet) 325 mg PO EVERY OTHER DAY [facility] Last Admin: 07/15/24 09:07 Dose: 325 mg Furosemide (Furosemide 10 Mg/Ml Sdv 10ml) 80 mg IVP Q12H ARMANDO Last Admin: 07/15/24 09:07 Dose: 80 mg Gabapentin (Gabapentin 100 Mg Capsule) 100 mg PO TID ARMANDO Last Admin: 07/15/24 09:05 Dose: 100 mg Glucagon (Glucagon 1 Mg/Ml Kit 1 Ml) 1 mg IM ONCE PRN; Protocol PRN Reason: Adult Acute Hypoglycemia Nursing Prot. Hydralazine HCl (Hydralazine 50 Mg Tablet) 100 mg PO TID [facility] Last Admin: 07/15/24 09:05 Dose: 100 mg Dextrose (D5w) 500 mls @ 0 mls/hr IV ONCE PRN; Protocol PRN Reason: Adult Acute Hypoglycemia Prot Dextrose (D10w) 125 mls @ 750 mls/hr IV PRN PRN; Protocol PRN Reason: Adult Acute Hypoglycemia Nursing Protocol Dextrose (D10w) 250 mls @ 1,000 mls/hr IV PRN PRN; Protocol PRN Reason: Adult Acute Hypoglycemia Nursing Protocol Insulin Glargine (Insulin Glargine 100 Units/1 Ml) 10 unit SUBCUT BID@0900,2100 [facility] Last Admin: 07/15/24 09:25 Dose: 10 unit Insulin Human Lispro (Insulin Lispro 100 Unit/1 Ml) 0 unit SUBCUT WM&BEDTIME [facility]; Protocol Last Admin: 07/15/24 09:17 Dose: 8 unit Isosorbide Mononitrate (Isosorbide Mononitrate Er 30 Mg Tablet) 30 mg PO BID [facility] Last Admin: 07/15/24 09:07 Dose: 30 mg Levothyroxine Sodium (Levothyroxine 25 Mcg Tablet) 25 mcg PO QAM [facility] Last Admin: 07/15/24 06:27 Dose: 25 mcg Metolazone (Metolazone 5 Mg Tablet) 2.5 mg PO DAILY [facility] Last Admin: 07/15/24 09:16 Dose: 2.5 mg Metoprolol Tartrate (Metoprolol Tartrate 25 Mg Tablet) 25 mg PO BID@0900,2100 [facility] Last Admin: 07/15/24 09:16 Dose: 25 mg Morphine Sulfate (Morphine 4 Mg/Ml Sdv 1 Ml) 2 mg IVP Q4H PRN PRN Reason: SEVERE PAIN Naloxone HCl (Naloxone 0.4 Mg/Ml Sdv) 0.1 mg IVP Q2M PRN PRN Reason: OPIATERV Nicotine (Nicotine 14 Mg Patch) 1 patch TRANSDERMA DAILY [facility] Last Admin: 07/15/24 09:05 Dose: 1 patch Nystatin (Nystatin Powder 15 Gm Btl) 1 applic TOPICAL BID [facility] Last Admin: 07/15/24 09:26 Dose: 1 applic Ondansetron HCl (Ondansetron 2 Mg/Ml Sdv 2 Ml) 4 mg IVP Q8H PRN PRN Reason: vomiting, or N/V if npo Pantoprazole Sodium (Pantoprazole 40 Mg Sdv) 40 mg IVP Q12H [facility] Last Admin: 07/15/24 09:17 Dose: 40 mg Pramipexole Dihydrochloride (Pramipexole 0.25 Mg Tablet) 0.25 mg PO TID PRN PRN Reason: Restless Leg Syndrome Last Admin: 07/15/24 09:16 Dose: 0.25 mg Sertraline HCl (Sertraline 100 Mg Tablet) 100 mg PO QAM [facility] Last Admin: 07/15/24 06:27 Dose: 100 mg Sucralfate (Sucralfate 1 Gm/10 Ml Oral Liq Udc) 1 gm PO AC&BEDTIME [facility] Last Admin: 07/15/24 06:27 Dose: 1 gm Tamsulosin HCl (Tamsulosin 0.4 Mg Capsule) 0.4 mg PO QPM [facility] Last Admin: 07/14/24 17:29 Dose: 0.4 mg Trazodone HCl (Trazodone 100 Mg Tablet) 150 mg PO BEDTIME [facility] Last Admin: 07/14/24 21:27 Dose: 150 mg Vitals/I&O/Wt Last Vital Signs Temp 98.0 F 07/15/24 07:09 Pulse 72 07/15/24 07:09 Resp 17 07/15/24 07:09 BP 198/73 07/15/24 07:09 Pulse Ox 97 07/15/24 07:09 O2 Del Method Nasal Cannula 07/15/24 07:09 O2 Flow Rate 4 07/15/24 07:09 FiO2 45 07/08/24 20:33 07/14/24 07/15/24 07/15/24 22:59 06:59 14:59 Intake Total 480 / 480 Output Total 900 / 2600 1200 / 3800 Balance -900 / -2600 -720 / -3320 Weight last 48 hrs Weight 182.616 kg Weight 182.571 kg Physical Exam Narrative: Morbidly obese sitting up in bed, using nasal cannula oxygen. Vital signs noted- bp rising HEENT normocephalic atraumatic. Neck is supple Lungs-improving b/l still has fine crackles Heart is regular positive S1-S2. Abdomen soft positive bowel sounds. Extremities 1+ pitting edema bilaterally -improving. Neuro awake alert oriented x 3. Poor distal pulses. Urinary Catheter Management: Briceño: Cath Placed During This Visit: yes Reason for Continuing Indwelling Catheter: Other Urinary Catheter Date of Insertion: 07/08/24 Urinary Catheter Time of Insertion: 13:00 Data 07/15/24 02:55 07/15/24 02:55 A&P Assessment and plan (1) Acute kidney injury superimposed on CKD: 69-year-old gentleman here with influenza A. Patient has underlying hypertension diabetes hypothyroidism. The patient has heart failure with preserved EF. 1. Patient is CKD stage IV baseline creatinine mid twos working etiology is hypertension diabetes and cardiorenal syndrome. Acute kidney injury has improved. 2. anemia - hgb stable at 7.6. ferritin 151 iron sat 12%- give iv iron and epo he received 2 u prbc on this admission -consider another unit of blood 3. HFpEF- BNP 5761- diuresis- dec lasix to 40 mg iv bid and cont metolazone. add aldactone 4. COPD 5. replace vit d- level is 7. pth 95-acceptable for CKD stage 4 6. check tsh 7. dm control seen and examined w/ RN using A/V equipment. pt consents to telehealth Plan see above PDMP PDMP Reviewed: Not Reviewed Attestations Medical Necessity Statement*: iv diuresis, ckf, chf Time Spent in Patient Care: 16 - 35 minutes (>than 50% of time spent in counselling and/or direct pt care on unit). Coding Level of Care Code Acute Code for Chg Fwd Diagnoses Acute kidney injury superimposed on CKD N17.9; N18.9
[2024-07-15] MEDS: ipratropium-albuterol 3 mL Neb INHALATION (09:38)
[2024-07-15] MEDS: budesonide 0.5 mg/2 mL Neb INHALATION (09:38)
[2024-07-15 09:40] VITALS: PULSE 87; RESP 18; O2SAT 96
[2024-07-15] MEDS: potassium chloride ER 20 mEq Tablet PO (10:46)
[2024-07-15 10:52] LABS: Glucose Point of Care 265 mg/dL (70-110)
[2024-07-15 11:20] LABS: Influenza A NEGATIVE (Negative); Influenza B NEGATIVE (Negative); Respiratory Syncytial Virus Ce NEGATIVE (Negative); SARS-CoV-2 PCR NEGATIVE (Negative)
[2024-07-15 11:37] VITALS: BP 165/76; PULSE 72; RESP 17; TEMP 36.7; O2SAT 93
--- NOTE | 2024-07-15 12:39 | PC.NURSE ---
Report called to Emy at [facility].
[2024-07-15 13:41] VITALS: BP 165/76; PULSE 72; RESP 17; TEMP 36.7; O2SAT 93
--- NOTE | 2024-07-23 10:05 | P.DS_ITS ---
Discharge Providers Date of Admission: 07/08/24 16:56 Date of Discharge: July 15, 2024 Attending Provider at Admission: Kiran Quinones MD Attending Provider at Discharge: Muriel Lambert Primary Care Provider: Rachel Bills MD Diagnoses at Discharge Discharge Diagnosis (1) Acute kidney injury superimposed on CKD: Status: Resolved Reason for Visit Reason for Visit: SOB Hospital Course Hospital Course 69-year-old with past medical history of hypertension, hyperlipidemia, type 2 diabetes mellitus, chronic obstructive pulmonary disease (COPD), stage 3 chronic kidney disease (CKD), and heart failure presents with worsening dyspnea. The patient uses BiPAP at night at his nursing facility ([facility]) and has continued to use it during this hospitalization. He was admitted on 07/08/2024 and treated for influenza A with Tamiflu. Initial workup revealed a hemoglobin of 6.2 g/dL, hematocrit of 21.6%, platelets of 164 K/uL, and creatinine of 2.7 mg/dL. He received 2 units of packed red blood cells on admission. The patient denies any overt bleeding but notes dark stools, which he attributes to iron supplementation. Hemoglobin improved to 7.6 g/dL following transfusion. Patient was to follow up outpatient for further work up as hgb was remaining stable The patient was also treated for sepsis secondary to a urinary tract infection (UTI) with antibiotics, which he completed on 07/12/2024. Blood cultures grew Staphylococcus species in 1 out of 4 bottles, thought to be a contaminant. Despite initial improvement in his breathing, the patient reported worsening dyspnea this morning (07/13/2024). He typically requires 4L of supplemental oxygen at home. Chest X-ray on 07/08/2024 showed improvement in fluid overload. Contiued to diurse under direction of nephorlogy. He was continued also on metolazone, and aldactone was added to regimen. He felt comfortablet with discharging. Also cleared by neprhology for discharge. Physical Exam Narrative: No distress HEENT normocephalic atraumatic. 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 Lungs diminished and crackles. Heart is regular positive S1-S2. Abdomen soft positive bowel sounds. Extremities 2-3+ pitting edema bilaterally. Neuro awake alert oriented x 3. Poor distal pulses. Urinary Catheter Management: Briceño: Cath Placed During This Visit: yes, but has since been removed by the nurse Reason for Continuing Indwelling Catheter: Decision to DC Catheter Urinary Catheter Date of Insertion: 07/08/24 Urinary Catheter Time of Insertion: 13:00 Date Urinary Catheter Removed: 07/15/24 Time Urinary Catheter Discontinued: 13:00 Discharge Data Studies Completed and Pending Completed Studies During Hospitalization Category Date Time Status XR chest 1V portable [id number] Stat Exams 07/08/24 12:10 Completed Radiology Impressions Chest X-Ray 07/08/24 12:10 Impression: Cardiomegaly and atherosclerosis. Laboratory Results WBC 6.58 10^3/uL (3.29-11.43) 07/15/24 02:55 RBC 2.78 10^6/uL (3.85-5.65) L 07/15/24 02:55 Hgb 7.60 g/dL (11.27-16.99) L 07/15/24 02:55 Hct 25.4 % (37-53) L 07/15/24 02:55 MCV 91.4 fl (82-101) 07/15/24 02:55 MCH 27.3 pg (27-33) 07/15/24 02:55 MCHC 29.9 g/dL (30-55) L 07/15/24 02:55 RDW 13.2 % (12.1-15.1) 07/15/24 02:55 Plt Count 145 10^3/cmm (157-399) L 07/15/24 02:55 MPV 9.9 fL (7.4-10.4) 07/15/24 02:55 Neut % (Auto) 71.5 % 07/15/24 02:55 Lymph % (Auto) 15.0 % 07/15/24 02:55 [place] % (Auto) 8.4 % 07/15/24 02:55 Eos % (Auto) 4.0 % 07/15/24 02:55 Baso % (Auto) 0.3 % 07/15/24 02:55 Neut # (Auto) 4.71 10^3/uL (1.8-7.7) 07/15/24 02:55 Lymph # (Auto) 1.0 10^3/uL (0.8-4.8) 07/15/24 02:55 [place] # (Auto) 0.6 10^3/uL (0.2-0.9) 07/15/24 02:55 Eos # (Auto) 0.3 10^3/uL (0.0-0.8) 07/15/24 02:55 Baso # (Auto) 0.0 10^3/uL (0.0-0.1) 07/15/24 02:55 Nucleated RBC % (auto) 0 % 07/15/24 02:55 Nucleated RBCs # 0.0 /100WBC 07/15/24 02:55 PT 16.40 SECONDS (12.1-14.9) H 07/08/24 12:50 INR 1.23 (0.8-1.2) H 07/08/24 12:50 Specimen Type Arterial 07/08/24 12:19 Sample Site Radial, left 07/08/24 12:19 ABG pH 7.28 (7.35-7.45) L 07/08/24 12:19 ABG pCO2 65.5 mmHg (35-45) H* 07/08/24 12:19 ABG pO2 219.0 mmHg (80.0-100.0) H 07/08/24 12:19 ABG PO2/FiO2 Ratio 219 07/08/24 12:19 ABG HCO3 30.9 mmol/L (22-26) H 07/08/24 12:19 ABG Base Excess 3.6 mmol/L (-2.0-2.0) H 07/08/24 12:19 Matthew Test Pos 07/08/24 12:19 Hematocrit 20.8 % (42-52) L 07/08/24 12:19 Hgb O2 Saturation 98.1 % (95-100) 07/08/24 12:19 Carboxyhemoglobin 1.7 %THgb (0.4-20.1) 07/08/24 12:19 Methemoglobin 0.5 % (0.4-1.5) 07/08/24 12:19 Total Hemoglobin 6.8 g/dL (14-18) L 07/08/24 12:19 O2 Delivery Device Nrb 07/08/24 12:19 O2 Liters/Min 13.0 % 07/08/24 12:19 FiO2 100.0 % 07/08/24 12:19 Customer Care Assistant ID [place] 07/08/24 12:19 Sodium 138 mmol/L (136-145) 07/15/24 02:55 Potassium 3.6 mmol/L (3.5-5.1) 07/15/24 02:55 Chloride 99 mmol/L (98-107) 07/15/24 02:55 Carbon Dioxide 30 mmol/L (22-29) H 07/15/24 02:55 Anion Gap 12.6 (5-19) 07/15/24 02:55 BUN 63 mg/dL (8-23) H 07/15/24 02:55 Creatinine 2.4 mg/dL (0.7-1.2) H 07/15/24 02:55 GFR Calculation 27.0 mL/min (90-130) L 07/15/24 02:55 Glucose 201 mg/dL (65-115) H 07/15/24 02:55 POC Glucose 265 mg/dL (70-110) H 07/15/24 10:43 Estimat Average Glucose 166 07/08/24 12:50 Hemoglobin A1c 7.4 % (4.0-6.0) H 07/08/24 12:50 Calculated Osmolality 310 mOsm/kg (285-295) H 07/15/24 02:55 Lactic Acid 1.0 mmol/L (0.5-2.2) 07/08/24 17:11 Uric Acid 15.1 mg/dL (3.4-7.0) H 07/13/24 05:00 Uric Acid Cancelled 07/13/24 05:00 Calcium 8.3 mg/dL (8.5-10.5) L 07/15/24 02:55 Phosphorus 2.6 mg/dL (2.5-4.5) 07/15/24 02:55 Magnesium 2.1 mg/dL (1.7-2.3) 07/15/24 02:55 Iron 45 ug/dL (59-158) L 07/08/24 12:50 Ferritin 151 ng/mL (30-400) 07/08/24 12:50 Total Bilirubin 0.2 mg/dL (0.15-1.2) 07/15/24 02:55 AST 21 U/L (0-40) 07/15/24 02:55 ALT 13 U/L (0-41) 07/15/24 02:55 Alkaline Phosphatase 133 U/L (40-130) H 07/15/24 02:55 C-Reactive Protein 61.0 mg/L (0.0-4.9) H 07/08/24 12:50 NT-Pro-B Natriuret Pep 5761 pg/mL (0-125) H 07/13/24 05:00 Total Protein 6.5 g/dL (6.6-8.7) L 07/15/24 02:55 Albumin 3.1 g/dL (3.5-5.2) L 07/15/24 02:55 Globulin 3.4 g/dL (1.3-4.6) 07/15/24 02:55 Triglycerides 95 mg/dL (0-150) 07/08/24 12:50 Cholesterol 71 mg/dL (0-200) 07/08/24 12:50 LDL Cholesterol, Calc 22 mg/dL (50-129) L 07/08/24 12:50 HDL Cholesterol 30 mg/dL (60-100) L 07/08/24 12:50 LDL/HDL Ratio 0.73 RATIO (0.00-3.22) 07/08/24 12:50 Cholesterol/HDL Ratio 2.37 mg/dL (1.0-5.00) 07/08/24 12:50 25-OH Vitamin D Total 7 ng/mL (30-100) L 07/14/24 06:29 Procalcitonin 0.18 ng/mL (0-0.5) 07/08/24 12:50 TSH 1.31 uIU/mL (0.27-4.20) 07/13/24 05:00 TSH Cancelled 07/13/24 05:00 PTH Intact 95.4 pg/mL (15-65) H 07/14/24 06:29 Calcium (PTH Intact) 8.5 mg/dL (8.5-10.5) 07/14/24 06:29 Urine Color Yellow (Yellow) 07/09/24 06:23 Urine Appearance Clear (CLEAR) 07/09/24 06:23 Urine pH 5.0 (5-7) 07/09/24 06:23 Ur Specific [place] 1.013 (1.005-1.030) 07/09/24 06:23 Urine Protein 2+ (Negative) H 07/09/24 06:23 Urine Glucose (UA) Norm (Normal) 07/09/24 06:23 Urine Ketones Negative (Negative) 07/09/24 06:23 Urine Blood 1+ (Negative) H 07/09/24 06:23 Urine Nitrate Negative (Negative) 07/09/24 06:23 Urine Bilirubin Neg (Negative) 07/09/24 06:23 Prot Sulfosalicylic Acd Cancelled 07/08/24 06:23 Urine Urobilinogen 0.2 mg/dL (Negative) 07/09/24 06:23 Ur Leukocyte Esterase 1+ (Negative) H 07/09/24 06:23 Urine RBC 21-50 /hpf (0-2) H 07/09/24 06:23 Urine WBC 21-50 /hpf (0-5) H 07/09/24 06:23 Ur Squamous Epith Cells 0-5 /hpf (0-5) 07/09/24 06:23 Ur Transition Epith Cell Cancelled 07/08/24 06:23 Ur Renal Epithelial Cell Cancelled 07/08/24 06:23 Calcium Oxalate Crystal Cancelled 07/08/24 06:23 Uric Acid Crystals Cancelled 07/08/24 06:23 Triple Phos Crystals Cancelled 07/08/24 06:23 Other Crystals Cancelled 07/08/24 06:23 Amorphous Sediment Not Reportable 07/09/24 06:23 Urine Bacteria 1+ /hpf (NONE) H 07/09/24 06:23 Hyaline Casts 24.82 /lpf 07/09/24 06:23 Fine Granular Casts Cancelled 07/08/24 06:23 Coarse Granular Casts Cancelled 07/08/24 06:23 RBC Casts Cancelled 07/08/24 06:23 Other Casts Cancelled 07/08/24 06:23 Urine Mucus Cancelled 07/08/24 06:23 Urine Trichomonas Cancelled 07/08/24 06:23 Urine Yeast Cancelled 07/08/24 06:23 Urine Sperm Cancelled 07/08/24 06:23 Ur Oval Fat Bodies Cancelled 07/08/24 06:23 Coronavirus (PCR) Negative (Negative) 07/15/24 10:30 Influenza A (PCR) Negative (Negative) 07/15/24 10:30 Influenza Type B (PCR) Negative (Negative) 07/15/24 10:30 RSV (PCR) Negative (Negative) 07/15/24 10:30 Blood Type O Negative 07/08/24 15:05 Rho(D) Type Rh negative 07/08/24 15:05 Antibody Screen Negative 07/08/24 15:05 Crossmatch See Detail 07/08/24 15:05 Vitals Last Vital Signs Temp 98.1 F 07/15/24 13:41 Pulse 72 07/15/24 13:41 Resp 17 07/15/24 13:41 BP 165/76 07/15/24 13:41 Pulse Ox 93 07/15/24 13:41 O2 Del Method Nasal Cannula 07/15/24 11:37 O2 Flow Rate 4 07/15/24 11:37 FiO2 45 07/08/24 20:33 Discharge Plan Discharge Patient Disposition: Home Condition: Stable Prescriptions: New spironolactone 25 mg Tablet 25 mg PO DAILY 30 Days Qty: 30 0RF gabapentin 100 mg Capsule 100 mg PO TID 30 Days Qty: 90 0RF pantoprazole [Protonix] [address] for susp in packet 40 mg PO BID Qty: 60 0RF metolazone 5 mg Tablet 2.5 mg PO DAILY 30 Days Qty: 30 0RF furosemide [Lasix] 40 mg tablet 40 mg PO BID Qty: 60 0RF Continued sertraline 100 mg tablet 100 mg PO QAM levothyroxine 25 mcg tablet 25 mcg PO QAM levocetirizine 5 mg tablet 5 mg PO QAM hydralazine 100 mg tablet 100 mg PO TID trazodone 150 mg tablet 150 mg PO BEDTIME ferrous sulfate 325 mg (65 mg iron) tablet 325 mg PO DAILY Rx Instructions: take 1 tablet by mouth every other day acetaminophen [Tylenol] 325 mg Tablet 650 mg PO Q6H PRN (Reason: Pain) bisacodyl [Dulcolax (bisacodyl)] 10 mg Suppository [address] DAILY PRN (Reason: Constipation) nystatin 100,000 unit/gram Powder 1 applic TOPICAL BID insulin aspart U-100 100 unit/mL (3 mL) Insulin Pen See Rx Instructions .ROUTE .COMPLEX Rx Instructions: per sliding scale subcut BEFORE MEALS and at bedtime if blood sugar is: 201-250=2 251-300=4 301-350=6 351-400=8 if over 400 call insulin glargine [Lantus Solostar U-100 Insulin] 100 unit/mL (3 mL) insulin pen 20 unit SUBCUT BID simvastatin 10 mg tablet 10 mg PO QPM tamsulosin 0.4 mg capsule 0.4 mg PO QPM ipratropium-albuterol 0.5 mg-3 mg(2.5 mg base)/3 mL Solution For Nebulization 3 ml inhalation Q6H PRN (Reason: Shortness Of Breath) Qty: 280 0RF isosorbide mononitrate 30 mg Tablet Extended Release 24 Hr 30 mg PO BID Qty: 60 0RF pramipexole 0.25 mg Tablet 0.25 mg PO TID PRN (Reason: Restless Leg Syndrome) Qty: 90 0RF omeprazole 20 mg capsule,delayed release(DR/EC) 20 mg PO BID metoprolol tartrate 25 mg Tablet 25 mg PO BID@0900,2100 Qty: 120 0RF Discontinued [place] 8.4 gram powder in packet 8.4 g PO .QOD insulin aspart U-100 100 unit/mL (3 mL) Insulin Pen 8 unit SUBCUT .WITH MEALS gabapentin 300 mg capsule 300 mg PO TID bumetanide 1 mg Tablet 1.5 mg PO BID Qty: 60 0RF Rx Instructions: AM and NOON No Action clonazepam 0.5 mg tablet 0.5 mg PO QPM azithromycin [Zithromax Z-Chavez] 250 mg tablet See Rx Instructions .ROUTE .COMPLEX Qty: 6 0RF Rx Instructions: For 250 mg dose pack: take 500 mg today (day 1), then 250 mg for 4 days (days 2-5) dexamethasone 6 mg tablet 6 mg PO DAILY 5 Days Qty: 5 0RF Discharge Orders: Discharge Order (Routine); Ordered 07/15/24 Ordered By: Muriel Lambert Referrals: Rachel Bills MD [Primary Care Provider] - Discharge Diet: Usual diet Discharge Activity: Increase activity as tolerated Patient Instructions: Spironolactone (By mouth), Metolazone (By mouth), Furosemide (By mouth), Opioid Safety Discharge Attestations Time Spent in Discharge Care*: greater than 30 min Status at Discharge: Cognitive status at discharge: cognitively intact , Behavioral status at discharge: cooperative , Functional status at discharge: independent ambulation , Overall status at discharge: patient is progressing back to baseline Quality Metrics Clinical Quality Measures [ No reported AMI, CVA or VTE this stay] Coding Level of Care Code Acute Code for Chg Fwd Diagnoses Acute kidney injury superimposed on CKD N17.9; N18.9
== END 2024-07-15 13:00 | disposition skilled nursing facility (03) | DRG 871 ==
LOC: ER 14:23 → ER IP 16:56 → ICU 20:01 → MEDSURG 07-09 12:53
PROVIDERS: Internal Medicine Nephrology; Admitting Provider Family Medicine; Emergency Provider Emergency Medicine; PCP Family Medicine; Visit Provider Hospitalist
DX: A41.9 Sepsis, unspecified organism (principal); J96.21 Acute and chronic respiratory failure with hypoxia; J96.22 Acute and chronic respiratory failure with hypercapnia; N17.9 Acute kidney failure, unspecified; I13.0 Hypertensive heart and chronic kidney disease with heart failure and stage 1 through stage 4 chronic kidney disease, or unspecified chronic kidney disease; N18.4 Chronic kidney disease, stage 4 (severe); I50.32 Chronic diastolic (congestive) heart failure; J44.1 Chronic obstructive pulmonary disease with (acute) exacerbation; N39.0 Urinary tract infection, site not specified; E66.2 Morbid (severe) obesity with alveolar hypoventilation; Z68.43 Body mass index [BMI] 50.0-59.9, adult; R65.20 Severe sepsis without septic shock; E11.22 Type 2 diabetes mellitus with diabetic chronic kidney disease; Z79.4 Long term (current) use of insulin; E78.5 Hyperlipidemia, unspecified; J10.1 Influenza due to other identified influenza virus with other respiratory manifestations; D64.9 Anemia, unspecified; Z99.81 Dependence on supplemental oxygen; E03.9 Hypothyroidism, unspecified; F17.210 Nicotine dependence, cigarettes, uncomplicated; F41.9 Anxiety disorder, unspecified; F32.A Depression, unspecified
CPT/HCPCS: 36415; 36416; 36430; 36600; 51702; 71045; 80048; 80053; 80061; 81001; 82306; 82310; 82728; 82805; 82962; 83036; 83540; 83605; 83735; 83880; 83970; 84100; 84145; 84443; 84550; 85025; 85610; 86140; 86850; 86900; 86920; 87040; 87077; 87086; 87150; 87186; 87205; 87637; 93005; 94640; 94660; 94664; 96372; 96374; 96375; 97110; 97116; 97163; 97167; 97530; 97535; 99285; 99291; J0360; J0456; J0696; J1815; J1940; J2470; J2916; J2919; J7050; J7626; P9016; P9058; Q0144; Q4081

== ENCOUNTER 2024-07-17 07:57 | Oncology outpatient (recurring) (ONCR) | payer MEDICARE, MEDICAID, SELFPAY ==
--- NOTE | 2024-06-24 09:11 | PC.NURSE ---
Received Venofer order from Dr. Maggie Bills. No diagnosis information on order. Called Dr. Bills, spoke with Sherie. Diagnosis is anemia, D64.9
[2024-07-17] MEDS: iron sucrose 200 MG in sodium chloride 0.9% 50 ML 240 MG IV (09:31)
[2024-07-17 10:14] VITALS: BP 169/86; PULSE 68; RESP 18; TEMP 36.4; O2SAT 96
== END 2024-07-31 23:59 | disposition home or self-care (01) ==
LOC: ONCMED 07:58
PROVIDERS: PCP Family Medicine; Visit Provider Family Medicine
DX: D50.9 Iron deficiency anemia, unspecified (principal); Z79.899 Other long term (current) drug therapy
CPT/HCPCS: 96365; J1756

== ENCOUNTER 2024-07-20 11:57 | Emergency (ER) | payer MEDICARE, MEDICAID, SELFPAY ==
[2024-07-20] VITALS (9 sets, daily range): BP systolic 174–181; BP diastolic 65–71; PULSE 67–78; RESP 20–22; TEMP 36.9; O2SAT 94–98
--- NOTE | 2024-07-20 12:03 | XR_ITS ---
WS: [id number] Exam: XR chest 1V portable [id number] Date/Time of Exam: 07/20/2024 12:08 PM Reason For Exam: Shortness of breath Comparison 07/08/2024. Increased pulmonary vascularity and chronic interstitial changes noted bilaterally. No consolidated infiltrates or pneumothorax. Heart size top limits normal. No pleural effusions. Bony structures are intact. The mediastinum is normal in contour. XR/XR chest 1V portable [id number] IMPRESSION: 1. Chronic interstitial changes and increased pulmonary vascularity. The patter n is unchanged. No new finding.
--- NOTE | 2024-07-20 12:04 | ECG_ITS ---
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 Measurements Intervals [place] Rate: 68 P: 56 NE: 197 QRS: 21 QRSD: 105 T: 58 QT: 408 QTc: 437 Interpretive Statements SINUS RHYTHM NONSPECIFIC T-WAVE ABNORMALITY Compared to ECG 07/08/2024 12:10:15 T-wave abnormality now present First degree AV block no longer present ST (T wave) deviation no longer present Electronically Signed On 07-20-2024 20:28:25 CENTRAL STERILE TECH by Rohit Mas M.D. [email or web address]
--- NOTE | 2024-07-20 12:13 | W.ED.SOB ---
HPI - SOB/Dyspnea General: Chief Complaint: Shortness of Breath/Dyspnea Stated Complaint: SOB Time Seen by Provider: 07/20/24 12:00 History of Present Illness: HPI Narrative: 69-year-old man with a history of COPD, chronic hypoxemic respiratory failure on 4 L nasal cannula at all time, obstructive sleep apnea on BiPAP at night and as needed, obesity, diabetes,Depression and tobacco dependence who presents to the emergency room by ambulance from the [facility] with shortness of breath. They had reported worsening hypoxemia there. He been placed on his BiPAP for a while but had less oxygen than sounds like was necessary. He says he has been feeling worse. He is had worsening cough. He has worsening swelling in his legs. He has a history of heart failure but no history of coronary disease he says. He is on Bumex. Also he was recently diagnosed with flu and pneumonia. No altered mental status. No chest pain. No abdominal pain. No nausea or vomiting. No known fevers. He is afebrile on presentation Related Data Home Medications ?Medication ?Instructions ?Recorded ?Confirmed sertraline 100 mg tablet 100 mg PO QAM 08/07/21 07/20/24 levocetirizine 5 mg tablet 5 mg PO QAM 02/16/22 07/20/24 levothyroxine 25 mcg tablet 25 mcg PO QAM 02/16/22 07/20/24 simvastatin 10 mg tablet 10 mg PO QPM 12/16/23 07/20/24 tamsulosin 0.4 mg capsule 0.4 mg PO QPM 12/16/23 07/20/24 omeprazole 20 mg capsule,delayed 20 mg PO BID 05/19/24 07/20/24 release ferrous sulfate 325 mg (65 mg 325 mg PO DAILY 06/23/24 07/20/24 iron) tablet hydralazine 100 mg tablet 100 mg PO TID 06/23/24 07/20/24 trazodone 150 mg tablet 150 mg PO BEDTIME 06/23/24 07/20/24 acetaminophen 325 mg tablet 650 mg PO Q6H PRN Pain 07/08/24 07/20/24 (Tylenol) bisacodyl 10 mg rectal suppository 10 mg PA DAILY PRN Constipation 07/08/24 07/20/24 (Dulcolax (bisacodyl)) insulin aspart U-100 100 unit/mL See Rx Instructions .Route .COMPLEX 07/08/24 07/20/24 (3 mL) subcutaneous pen insulin glargine 100 unit/mL (3 20 unit SUBCUT BID 07/08/24 07/20/24 mL) subcutaneous pen (Lantus Solostar U-100 Insulin) nystatin 100,000 unit/gram topical 1 applic topical BID 07/08/24 07/20/24 powder clonazepam 0.5 mg tablet 0.5 mg PO QPM 07/20/24 07/20/24 Previous Rx's ?Medication ?Instructions ?Recorded ipratropium 0.5 mg-albuterol 3 mg 3 ml inhalation Q6H PRN Shortness 12/19/23 (2.5 mg base)/3 mL nebulization Of Breath #280 mL soln isosorbide mononitrate 30 mg 30 mg PO BID #60 tabs 12/19/23 tablet,extended release 24 hr pramipexole 0.25 mg tablet 0.25 mg PO TID PRN Restless Leg 12/19/23 Syndrome #90 tabs metoprolol tartrate 25 mg tablet 25 mg PO BID@0900,2100 #120 tabs 05/22/24 furosemide 40 mg tablet (Lasix) 40 mg PO BID #60 tabs 07/15/24 gabapentin 100 mg capsule 100 mg PO TID 30 days #90 caps 07/15/24 metolazone 5 mg tablet 2.5 mg (1/2 x 5 mg) PO DAILY 30 07/15/24 days #30 tabs pantoprazole 40 mg granules 40 mg PO BID #60 ea 07/15/24 delayed-release for susp in packet (Protonix) spironolactone 25 mg tablet 25 mg PO DAILY 30 days #30 tabs 07/15/24 azithromycin 250 mg tablet See Rx Instructions PO .COMPLEX #6 07/20/24 (Zithromax Z-Chavez) tabs dexamethasone 6 mg tablet 6 mg PO DAILY 5 days #5 tabs 07/20/24 Allergies Allergy/AdvReac Type Severity Reaction Status Date / Time No Known Allergies Allergy Verified 07/03/24 16:20 Review of Systems Narrative: Constitutional symptoms: Negative except as documented in HPI. Skin symptoms: Negative except as documented in HPI. Eye symptoms: Negative except as documented in HPI. ENMT symptoms: Negative except as documented in HPI. Respiratory symptoms: Negative except as documented in HPI. Cardiovascular symptoms: Negative except as documented in HPI. Gastrointestinal symptoms: Negative except as documented in HPI. Genitourinary symptoms: Negative except as documented in HPI. Musculoskeletal symptoms: Negative except as documented in HPI. Neurologic symptoms: Negative except as documented in HPI. Psychiatric symptoms: Negative except as documented in HPI. Endocrine symptoms: Negative except as documented in HPI. PFSH ED PFSH: Medical History Pneumonia Anemia Acute hyperkalemia Hypotension Hypochromic microcytic anemia Anxiety and depression Normocytic anemia Heart failure Atrial flutter Respiratory failure Iron deficiency anemia Brain aneurysm Necrotizing fasciitis of shoulder region Diabetes Surgical History Status post colonoscopy (10/18/21) H/O esophagogastroduodenoscopy (10/18/21) History of shoulder surgery Family History Grandfather Clotting disorder Family/Other CAD (coronary artery disease) Cancer Diabetes Stroke Grandmother CAD (coronary artery disease) Dementia Father Cancer Lung disease Mother Cancer Denies family history of Chronic kidney disease (CKD) Suicide Anesthesia complication Bleeding disorder Social History Smoking and tobacco/nicotine status: current every day tobacco/nicotine user (1 ppd, smoked x 50 years) cigarettes Packs smoked per day: 2 Years cigarettes smoked: 50 [ Other cigarette details: started at age 16] Alcohol intake: never Substance/Drug Use: never Physical Exam Narrative: EXAM NARRATIVE: General: Alert, no acute distress. Skin: Warm, dry. Head: Normocephalic, atraumatic. Neck: Supple, trachea midline. Eye: Extraocular movements are intact. Ears, nose, mouth and throat: Oral mucosa moist. Cardiovascular: Regular rate and rhythm, Normal peripheral perfusion. 1-2+ tibial edema. Respiratory: some expiratory wheeze, mild increased wob, breath sounds are equal, Symmetrical chest wall expansion. Gastrointestinal: Soft, Nontender, Non distended, Normal bowel sounds. Musculoskeletal: Normal ROM, no deformity. Neurological: Alert and oriented to person, place, time, and situation, No focal neurological deficit observed. Psychiatric: Cooperative, appropriate mood & affect. Course Vital Signs: Vital signs: Vital Signs Temperature 98.4 F 07/20/24 12:02 Pulse Rate 78 07/20/24 16:39 Respiratory Rate 20 H 07/20/24 16:39 Blood Pressure 181/71 07/20/24 16:39 Pulse Oximetry 97 07/20/24 16:39 Oxygen Delivery Me thod Nasal Cannula 07/20/24 14:42 Oxygen Flow Rate 4 07/20/24 14:42 MDM - SOB/Dyspnea Medical Decision Making Differential diagnosis for patient with shortness of breath includes but is not limited to and based on the above HPI, review of systems and physical exam: Pneumonia. Bronchitis. Asthma or COPD with acute exacerbation. Acute coronary syndrome / [place]. Pulmonary embolism. Anxiety. Congestive heart failure. Viral infections including influenza and Covid-19. Atrial fibrillation. Anxiety. Pleural effusion. Pneumothorax. Orders placed to evaluate differential diagnosis based on the above differential, HPI and physical exam EKG: Time 1400. Rate 70. Sinus rhythm with PVCs, No ST-T changes, This was reviewed and interpreted by myself the ER physician at 1405. Repeat EKG: Time 1203. Rate 68. Normal sinus rhythm, nonspecific ST-T changes, no ectopy, normal PA & QRS intervals, This was reviewed and interpreted by myself the ER physician at 1207. No significant changes from EKG done previously today in the emergency room except for no longer has frequent PACs. Chest x-ray: Chronic interstitial changes and increased pulmonary vascularity. Unchanged from previous. No acute process. No infiltrate. No pneumothorax. This was reviewed and interpreted by myself the emergency room physician. I also reviewed the radiology report. Lab Review: Laboratory results were reviewed and interpreted by myself the emergency room physician. No leukocytosis. Stable anemia with a hemoglobin of 7. It is remained above 7 but below 8 for some time now. BUN/creatinine are 45 and 2.3 which is slightly below his normal chronic kidney numbers. Flu and COVID are negative. His initial troponin is slightly elevated at 191. This is above his baseline and may just be due to hypoxemia, may be due to his renal function. I reviewed the patient's medical record. Reexamination: Patient is stable on his home 4 L nasal cannula. No increased work of breathing. We talked about going home and he is comfortable. Actually back to the retirement. Assessment and plan: COPD with acute exacerbation Congestive heart failure Edema Chronic hypoxemic respiratory failure ?Patient is stable on his home 4 L ? IV Solu-Medrol, IV Lasix, breathing treatments with some improvement. - Discharged home - Discussed plan with patient. Answered any questions. - Evaluation and treatment of this problem were appropriate in the emergency setting. Lab Data 07/20/24 12:35 07/20/24 12:35 Labs/Radiology: Radiology Impressions Chest X-Ray 07/20/24 12:03 IMPRESSION: 1. Chronic interstitial changes and increased pulmonary vascularity. The pattern is unchanged. No new finding. Laboratory Results WBC 7.59 10^3/uL (3.29-11.43) 07/20/24 12:35 RBC 2.63 10^6/uL (3.85-5.65) L 07/20/24 12:35 Hgb 7.20 g/dL (11.27-16.99) L 07/20/24 12:35 Hct 23.8 % (37-53) L 07/20/24 12:35 MCV 90.5 fl (82-101) 07/20/24 12:35 MCH 27.4 pg (27-33) 07/20/24 12:35 MCHC 30.3 g/dL (30-55) 07/20/24 12:35 RDW 13.3 % (12.1-15.1) 07/20/24 12:35 Plt Count 169 10^3/cmm (157-399) 07/20/24 12:35 MPV 9.8 fL (7.4-10.4) 07/20/24 12:35 Neut % (Auto) 76.3 % 07/20/24 12:35 Lymph % (Auto) 9.4 % 07/20/24 12:35 [place] % (Auto) 11.5 % 07/20/24 12:35 Eos % (Auto) 2.1 % 07/20/24 12:35 Baso % (Auto) 0.3 % 07/20/24 12:35 Neut # (Auto) 5.80 10^3/uL (1.8-7.7) 07/20/24 12:35 Lymph # (Auto) 0.7 10^3/uL (0.8-4.8) L 07/20/24 12:35 [place] # (Auto) 0.9 10^3/uL (0.2-0.9) 07/20/24 12:35 Eos # (Auto) 0.2 10^3/uL (0.0-0.8) 07/20/24 12:35 Baso # (Auto) 0.0 10^3/uL (0.0-0.1) 07/20/24 12:35 Nucleated RBC % (auto) 0 % 07/20/24 12:35 Nucleated RBCs # 0.0 /100WBC 07/20/24 12:35 Specimen Type Arterial 07/20/24 12:12 Sample Site Brachial, right 07/20/24 12:12 ABG pH 7.44 (7.35-7.45) 07/20/24 12:12 ABG pCO2 51.5 mmHg (35-45) H 07/20/24 12:12 ABG pO2 83.3 mmHg (80.0-100.0) 07/20/24 12:12 ABG PO2/FiO2 Ratio 231 07/20/24 12:12 ABG HCO3 34.9 mmol/L (22-26) H 07/20/24 12:12 ABG O2 Saturation 97.5 07/20/24 12:12 ABG Base Excess 9.6 mmol/L (-2.0-2.0) H 07/20/24 12:12 Matthew Test Pos 07/20/24 12:12 A-a O2 Gradient 14.6 mmHg (5-10) H 07/20/24 12:12 Hematocrit 23.1 % (42-52) L 07/20/24 12:12 Hgb O2 Saturation 94.5 % (95-100) L 07/20/24 12:12 Carboxyhemoglobin 1.8 %THgb (0.4-20.1) 07/20/24 12:12 Methemoglobin 1.2 % (0.4-1.5) 07/20/24 12:12 Total Hemoglobin 7.5 g/dL (14-18) L 07/20/24 12:12 Sodium 143.0 mmol/L (131-143) 07/20/24 12:12 Potassium 3.8 mmol/L (3.5-5.0) 07/20/24 12:12 Glucose 167.0 mg/dL (70-115) H 07/20/24 12:12 Ionized Calcium 1.1 mmol/L (1.1-1.4) 07/20/24 12:12 O2 Delivery Device Nc 07/20/24 12:12 O2 Liters/Min 4.0 % 07/20/24 12:12 FiO2 36.0 % 07/20/24 12:12 Swimming Pool Salesperson ID [email or web address] 07/20/24 12:12 Sodium 140 mmol/L (136-145) 07/20/24 12:35 Potassium 3.9 mmol/L (3.5-5.1) 07/20/24 12:35 Chloride 97 mmol/L (98-107) L 07/20/24 12:35 Carbon Dioxide 29 mmol/L (22-29) 07/20/24 12:35 Anion Gap 17.9 (5-19) 07/20/24 12:35 BUN 45 mg/dL (8-23) H 07/20/24 12:35 Creatinine 2.3 mg/dL (0.7-1.2) H 07/20/24 12:35 GFR Calculation 28.3 mL/min (90-130) L 07/20/24 12:35 Glucose 166 mg/dL (65-115) H 07/20/24 12:35 Calculated Osmolality 305 mOsm/kg (285-295) H 07/20/24 12:35 Lactic Acid 0.8 mmol/L (0.5-2.2) 07/20/24 12:35 Calcium 8.5 mg/dL (8.5-10.5) 07/20/24 12:35 Total Bilirubin 0.3 mg/dL (0.15-1.2) 07/20/24 12:35 AST 24 U/L (0-40) 07/20/24 12:35 ALT 13 U/L (0-41) 07/20/24 12:35 Alkaline Phosphatase 140 U/L (40-130) H 07/20/24 12:35 Troponin T Baseline 191 ng/L (0-15) H* 07/20/24 12:35 Troponin T 120 Minute 188.5 ng/L (0-15) H 07/20/24 14:37 Delta Troponin T -2.5 ABS# (0-10) L 07/20/24 14:37 C-Reactive Protein 22.1 mg/L (0.0-4.9) H 07/20/24 12:35 NT-Pro-B Natriuret Pep 5099 pg/mL (0-125) H 07/20/24 12:35 Total Protein 7.0 g/dL (6.6-8.7) 07/20/24 12:35 Albumin 3.2 g/dL (3.5-5.2) L 07/20/24 12:35 Globulin 3.8 g/dL (1.3-4.6) 07/20/24 12:35 Procalcitonin 0.10 ng/mL (0-0.5) 07/20/24 12:35 Influenza A (PCR) Negative (Negative) 07/20/24 12:29 Influenza Type B (PCR) Negative (Negative) 07/20/24 12:29 RSV (PCR) Negative (Negative) 07/20/24 12:29 SARS-CoV-2 (PCR) Negative (Negative) 07/20/24 12:29 All radiology interpretation(s) finalized by discharge Discharge Plan Discharge Patient Disposition: Home Clinical Impression: COPD with acute exacerbation, Chronic hypoxemic respiratory failure, Congestive heart failure Condition: Stable Prescriptions: New azithromycin [Zithromax Z-Chavez] 250 mg tablet See Rx Instructions .ROUTE .COMPLEX Qty: 6 0RF Rx Instructions: For 250 mg dose pack: take 500 mg today (day 1), then 250 mg for 4 days (days 2-5) dexamethasone 6 mg tablet 6 mg PO DAILY 5 Days Qty: 5 0RF No Action sertraline 100 mg tablet 100 mg PO QAM levothyroxine 25 mcg tablet 25 mcg PO QAM levocetirizine 5 mg tablet 5 mg PO QAM hydralazine 100 mg tablet 100 mg PO TID trazodone 150 mg tablet 150 mg PO BEDTIME ferrous sulfate 325 mg (65 mg iron) tablet 325 mg PO DAILY Rx Instructions: take 1 tablet by mouth every other day acetaminophen [Tylenol] 325 mg Tablet 650 mg PO Q6H PRN (Reason: Pain) bisacodyl [Dulcolax (bisacodyl)] 10 mg Suppository 10 mg PA DAILY PRN (Reason: Constipation) nystatin 100,000 unit/gram Powder 1 applic TOPICAL BID insulin aspart U-100 100 unit/mL (3 mL) Insulin Pen See Rx Instructions .ROUTE .COMPLEX Rx Instructions: per sliding scale subcut BEFORE MEALS and at bedtime if blood sugar is: 201-250=2 251-300=4 301-350=6 351-400=8 if over 400 call insulin glargine [Lantus Solostar U-100 Insulin] 100 unit/mL (3 mL) insulin pen 20 unit SUBCUT BID spironolactone 25 mg Tablet 25 mg PO DAILY 30 Days Qty: 30 0RF gabapentin 100 mg Capsule 100 mg PO TID 30 Days Qty: 90 0RF pantoprazole [Protonix] [address] for susp in packet 40 mg PO BID Qty: 60 0RF metolazone 5 mg Tablet 2.5 mg PO DAILY 30 Days Qty: 30 0RF furosemide [Lasix] 40 mg tablet 40 mg PO BID Qty: 60 0RF clonazepam 0.5 mg tablet 0.5 mg PO QPM simvastatin 10 mg tablet 10 mg PO QPM tamsulosin 0.4 mg capsule 0.4 mg PO QPM ipratropium-albuterol 0.5 mg-3 mg(2.5 mg base)/3 mL Solution For Nebulization 3 ml inhalation Q6H PRN (Reason: Shortness Of Breath) Qty: 280 0RF isosorbide mononitrate 30 mg Tablet Extended Release 24 Hr 30 mg PO BID Qty: 60 0RF pramipexole 0.25 mg Tablet 0.25 mg PO TID PRN (Reason: Restless Leg Syndrome) Qty: 90 0RF omeprazole 20 mg capsule,delayed release(DR/EC) 20 mg PO BID metoprolol tartrate 25 mg Tablet 25 mg PO BID@0900,2100 Qty: 120 0RF Discharge Orders: Discharge ED (Routine); Ordered 07/20/24 Ordered By: Janie Alonso Referrals: Rachel Bills MD [Primary Care Provider] - Discharge Diet: Usual diet Discharge Activity: Increase activity as tolerated Patient Instructions: COPD (Chronic Obstructive Pulmonary Disease) (ED), Opioid Safety, Pain Management Activity Restrictions/Additional Instructions: Thank you for choosing [facility] for your healthcare needs today. Please realize this is an emergency room and that we are providing you with a medical screening exam and this may not be complete and all inclusive of all the testing and or work up that you may need to determine your ailment or severity of your illness. You have been screened and evaluated and felt safe for discharge. Health conditions do change or evolve sometimes and as such it is important that you follow up with your Primary Doctor to be re checked, 3-5 days is a general good time frame for follow up. You are always welcome to return to the ED for re assessment if your symptoms are worsening or you have new concerns Print Language: Romansh Coding Level of Care Code ED [employer] for Josh Gallego
[2024-07-20 12:24] LABS: ABG PCO2 51.5 mmHg (35-45); ABG PH Result 7.44 (7.35-7.45); Alveolar-Arterial Oxygen Gradi 14.6 mmHg (5-10); Arterial Blood Gas Hematocrit 23.1 % (42-52); Base Excess ABG 9.6 mmol/L (-2.0-2.0); Blood Gas Allen Test Pos; Blood Gas Sample Type Arterial; Carboxyhemoglobin 1.8 %THgb (0.4-20.1); HCO3 ABG 34.9 mmol/L (22-26); HGB O2 Sat 94.5 % (95-100); Ionized Calcium Level - ABG 1.1 mmol/L (1.1-1.4); Methemoglobin 1.2 % (0.4-1.5); Oxygen Device NC; Oxygen Saturation ABG 97.5; PO2 ABG 83.3 mmHg (80.0-100.0); PO2 FiO2 Ratio Arterial Blood 231; Potassium Level - ABG 3.8 mmol/L (3.5-5.0); Total Hemoglobin 7.5 g/dL (14-18)
[2024-07-20 13:07] LABS: Basophils % 0.3 %; Eosinophils # 0.2 10^3/uL (0.0-0.8); Eosinophils % 2.1 %; Hematocrit 23.8 % (37-53); Lymphocytes # 0.7 10^3/uL (0.8-4.8); Lymphocytes % 9.4 %; Mean Corpuscular HGB Conc 30.3 g/dL (30-55); Mean Corpuscular Hemoglobin 27.4 pg (27-33); Mean Corpuscular Volume 90.5 fl (82-101); Mean Platelet Volume 9.8 fL (7.4-10.4); Monocytes # 0.9 10^3/uL (0.2-0.9); Monocytes % 11.5 %; Neutrophils % 76.3 %; Nucleated Red Blood Cells % 0 %; Platelet Count 169 10^3/cmm (157-399); Red Blood Count 2.63 10^6/uL (3.85-5.65); Red Cell Distribution Width 13.3 % (12.1-15.1); White Blood Count 7.59 10^3/uL (3.29-11.43)
[2024-07-20 13:21] LABS: Lactic Sepsis W/Reflex 0.8 mmol/L (0.5-2.2)
[2024-07-20 13:24] LABS: Influenza A NEGATIVE (Negative); Influenza B NEGATIVE (Negative); Respiratory Syncytial Virus Ce NEGATIVE (Negative); SARS-CoV-2 PCR NEGATIVE (Negative)
[2024-07-20 13:28] LABS: Troponin(5th) Baseline 191 ng/L (0-15)
[2024-07-20 13:30] LABS: NT Pro B Type Natriuretic Pept 5099 pg/mL (0-125)
[2024-07-20 13:41] LABS: Alanine Aminotransferase 13 U/L (0-41); Albumin Level 3.2 g/dL (3.5-5.2); Alkaline Phosphatase 140 U/L (40-130); Anion Gap 17.9 (5-19); Aspartate Amino Transferase 24 U/L (0-40); Blood Urea Nitrogen 45 mg/dL (8-23); C Reactive Protein 22.1 mg/L (0.0-4.9); Calcium 8.5 mg/dL (8.5-10.5); Carbon Dioxide 29 mmol/L (22-29); Chloride 97 mmol/L (98-107); Creatinine Clr Calc Pharmacy 50.1142; Globulin 3.8 g/dL (1.3-4.6); Glomerular Filtration Rate 28.3 mL/min (90-130); Glucose 166 mg/dL (65-115); Osmolality Calculated 305 mOsm/kg (285-295); Potassium 3.9 mmol/L (3.5-5.1); Sodium 140 mmol/L (136-145); Total Bilirubin 0.3 mg/dL (0.15-1.2)
--- NOTE | 2024-07-20 14:04 | ECG_ITS ---
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
[2024-07-20] MEDS: ipratropium-albuterol 3 mL Neb INHALATION (14:41)
[2024-07-20] MEDS: methylPREDNISolone sod succ 125 mg/2 mL INJ IVP (14:47)
[2024-07-20] MEDS: FUROsemide 10 mg/mL SDV 10mL 80 MG IVP (14:47)
[2024-07-20 14:49] LABS: Blood Gas Operator Identificat gerca; Blood Gas Sample Site Brachial, right
[2024-07-20 15:23] LABS: Troponin 5 2HR 188.5 ng/L (0-15); Troponin 5 2HR Delta -2.5 ABS# (0-10)
== END 2024-07-20 16:40 | disposition home or self-care (01) ==
PROVIDERS: Emergency Provider Emergency Medicine; PCP Family Medicine
DX: J44.1 Chronic obstructive pulmonary disease with (acute) exacerbation (principal); J96.11 Chronic respiratory failure with hypoxia; I50.9 Heart failure, unspecified; E11.9 Type 2 diabetes mellitus without complications; F17.210 Nicotine dependence, cigarettes, uncomplicated; Z79.4 Long term (current) use of insulin; Z11.52 Encounter for screening for COVID-19
CPT/HCPCS: 36415; 36600; 71045; 80051; 80053; 82330; 82805; 83605; 83880; 84145; 84484; 85025; 86140; 87040; 87637; 93005; 94640; 96374; 96375; 99285; J1940; J2919

== ENCOUNTER 2024-08-08 01:35 | Emergency (ER) | payer MEDICARE, MEDICAID, SELFPAY ==
--- NOTE | 2024-08-08 01:45 | XRR_ITS ---
XR/XR chest 1V portable [id number] PROCEDURE INFORMATION: Exam: XR Chest Exam date and time: 08/08/2024 1:48 AM Age: 69 years old Clinical indication: Shortness of breath; EMS arrival for SOB with general weakness. History of chf. TECHNIQUE: Imaging protocol: Radiologic exam of the chest. Views: 1 view. COMPARISON: CR XR chest 1V portable [id number] 07/20/2024 12:10 PM FINDINGS: Lungs: Pulmonary vascular congestion. Pleural spaces: Unremarkable. No pleural effusion. No pneumothorax. Heart/Mediastinum: Cardiomegaly. Bones/joints: Unremarkable.
[2024-08-08 01:47] VITALS: BP 180/84; PULSE 64; RESP 24; TEMP 37.1; O2SAT 96
--- NOTE | 2024-08-08 01:49 | W.ED.WEAKNES ---
HPI - Weakness General: Chief complaint: Nausea/Vomiting/Diarrhea Stated complaint: not feeling well Time Seen by Provider: 08/08/24 01:45 History of Present Illness: Patient presents to the ER by EMS with complaints of just not feeling well all over, weakness and nausea vomiting. Patient is currently on hospice for CHF hospice nurse was contacted and instructed him to come here to be evaluated. Patient states this been going on for the last several days. EMS stated he was so weak that he could not help him get up out of his chair to get on the stretcher. Patient does have a history of renal failure, anemia requiring blood transfusion pneumonia,, patient is on 4 L of oxygen per nasal cannula at all times. Review of Systems General: Reports: 10 or more systems reviewed and unremarkable except in HPI and below PFSH ED PFSH: Medical History Pneumonia Anemia Acute hyperkalemia Hypotension Hypochromic microcytic anemia Anxiety and depression Normocytic anemia Heart failure Atrial flutter Respiratory failure Iron deficiency anemia Brain aneurysm Necrotizing fasciitis of shoulder region Diabetes Surgical History Status post colonoscopy (10/18/21) H/O esophagogastroduodenoscopy (10/18/21) History of shoulder surgery Family History Grandfather Clotting disorder Family/Other CAD (coronary artery disease) Cancer Diabetes Stroke Grandmother CAD (coronary artery disease) Dementia Father Cancer Lung disease Mother Cancer Denies family history of Chronic kidney disease (CKD) Suicide Anesthesia complication Bleeding disorder Social History Smoking and tobacco/nicotine status: current every day tobacco/nicotine user (1 ppd, smoked x 50 years) cigarettes Packs smoked per day: 2 Years cigarettes smoked: 50 [ Other cigarette details: started at age 16] Alcohol intake: never Substance/Drug Use: never Physical Exam Const: COMMON NORMALS: no acute distress, average body habitus, patient oriented x3, no limitations, healthy appearing, alert and well nourished HENMT: COMMON NORMALS: normocephalic, atraumatic, hearing grossly normal bilaterally, external ears normal, Normal external nose present and oropharynx normal; oral mucous membranes not moist (Dry mucous membranes) HEAD & SCALP: normocephalic and atraumatic NOSE: Normal external nose present EXTERNAL EAR: Yes external ears normal Eye: COMMON NORMALS: Equal, round and reactive pupils present, EOMs intact bilaterally, conjunctivae normal and no scleral icterus CONJUNCTIVA: Yes conjunctivae normal PUPIL: Yes Equal, round and reactive pupils present Neck/C-Spine: COMMON NORMALS: full ROM, no lymphadenopathy, supple, no meningeal signs and no JVD Chest: COMMONS NORMALS: normal inspection of the chest and normal palpation of entire chest wall Resp: COMMON NORMALS: normal respiratory effort, No retractions, No use of accessory muscles and clear to auscultation bilaterally AUSCULTATION: clear to auscultation bilaterally Cardio: COMMON NORMALS: no JVD, regular rate, regular rhythm, S1 normal heart sound present, S2 normal heart sound present, No gallops present (Cardio), No clicks present (Cardio), No murmurs present (Cardio) and No rub (Cardio) RATE: regular rate RHYTHM: regular rhythm HEART SOUNDS: S1 normal heart sound present and S2 normal heart sound present GI: COMMON NORMALS: Normal to inspection, nondistended, normoactive bowel sounds present, Soft to palpation, non-tender, No hepatosplenomegaly present and no masses PALPATION: Yes Soft to palpation and Yes No hepatosplenomegaly present Extremity: NARRATIVE EXTREMITY EXAM: 1+ pitting edema bilateral lower extremities Neuro: COMMON NORMALS: patient oriented x3 SENSORIUM/ORIENTATION: Yes alert MENINGEAL SIGNS: Yes no meningeal signs Course Vital Signs: Vital signs: Vital Signs Temperature 98.7 F 08/08/24 01:47 Pulse Rate 64 08/08/24 01:47 Respiratory Rate 24 H 08/08/24 01:47 Blood Pressure 180/84 08/08/24 01:47 Pulse Oximetry 96 08/08/24 01:47 MDM - Weakness Medical Decision Making Lab work revealed a white count 9.98, sodium 129, BUN/creatinine 55 2.6, BNP 5057, hemoglobin 7.2, chest x-ray showed no acute infiltrate, there is a patient stay here in the ER he was on his home oxygen at 4 L/min, patient said he was feeling better. Patient be discharged home. Medical Records I reviewed the patient's medical records. Lab Data I reviewed the patient's lab results. 08/08/24 02:16 08/08/24 02:16 Radiology Impressions Chest X-Ray 08/08/24 01:45 PROCEDURE INFORMATION: Exam: XR Chest Exam date and time: 08/08/2024 1:48 AM Age: 69 years old Clinical indication: Shortness of breath; EMS arrival for SOB with general weakness. History of chf. TECHNIQUE: Imaging protocol: Radiologic exam of the chest. Views: 1 view. COMPARISON: CR XR chest 1V portable [id number] 07/20/2024 12:10 PM FINDINGS: Lungs: Pulmonary vascular congestion. Pleural spaces: Unremarkable. No pleural effusion. No pneumothorax. Heart/Mediastinum: Cardiomegaly. Bones/joints: Unremarkable. Laboratory Results WBC 9.98 10^3/uL (3.29-11.43) 08/08/24 02:16 RBC 2.68 10^6/uL (3.85-5.65) L 08/08/24 02:16 Hgb 7.20 g/dL (11.27-16.99) L 08/08/24 02:16 Hct 24.0 % (37-53) L 08/08/24 02:16 MCV 89.6 fl (82-101) 08/08/24 02:16 MCH 26.9 pg (27-33) L 08/08/24 02:16 MCHC 30.0 g/dL (30-55) 08/08/24 02:16 RDW 13.2 % (12.1-15.1) 08/08/24 02:16 Plt Count 214 10^3/cmm (157-399) 08/08/24 02:16 MPV 9.8 fL (7.4-10.4) 08/08/24 02:16 Neut % (Auto) 84.0 % 08/08/24 02:16 Lymph % (Auto) 6.6 % 08/08/24 02:16 Person % (Auto) 7.0 % 08/08/24 02:16 Eos % (Auto) 0.6 % 08/08/24 02:16 Baso % (Auto) 0.5 % 08/08/24 02:16 Neut # (Auto) 8.38 10^3/uL (1.8-7.7) H 08/08/24 02:16 Lymph # (Auto) 0.7 10^3/uL (0.8-4.8) L 08/08/24 02:16 Person # (Auto) 0.7 10^3/uL (0.2-0.9) 08/08/24 02:16 Eos # (Auto) 0.1 10^3/uL (0.0-0.8) 08/08/24 02:16 Baso # (Auto) 0.1 10^3/uL (0.0-0.1) 08/08/24 02:16 Nucleated RBC % (auto) 0 % 08/08/24 02:16 Nucleated RBCs # 0.0 /100WBC 08/08/24 02:16 Sodium 129 mmol/L (136-145) L 08/08/24 02:16 Potassium 4.5 mmol/L (3.5-5.1) 08/08/24 02:16 Chloride 89 mmol/L (98-107) L 08/08/24 02:16 Carbon Dioxide 27 mmol/L (22-29) 08/08/24 02:16 Anion Gap 17.5 (5-19) 08/08/24 02:16 BUN 55 mg/dL (8-23) H 08/08/24 02:16 Creatinine 2.6 mg/dL (0.7-1.2) H 08/08/24 02:16 GFR Calculation 24.6 mL/min (90-130) L 08/08/24 02:16 Glucose 268 mg/dL (65-115) H 08/08/24 02:16 Calculated Osmolality 293 mOsm/kg (285-295) 08/08/24 02:16 Lactic Acid 0.8 mmol/L (0.5-2.2) 08/08/24 02:16 Calcium 8.8 mg/dL (8.5-10.5) 08/08/24 02:16 Phosphorus 3.9 mg/dL (2.5-4.5) 08/08/24 02:16 Magnesium 2.2 mg/dL (1.7-2.3) 08/08/24 02:16 Total Bilirubin 0.2 mg/dL (0.15-1.2) 08/08/24 02:16 AST 15 U/L (0-40) 08/08/24 02:16 ALT 9 U/L (0-41) 08/08/24 02:16 Alkaline Phosphatase 137 U/L (40-130) H 08/08/24 02:16 NT-Pro-B Natriuret Pep 5057 pg/mL (0-125) H 08/08/24 02:16 Total Protein 7.8 g/dL (6.6-8.7) 08/08/24 02:16 Albumin 3.4 g/dL (3.5-5.2) L 08/08/24 02:16 Globulin 4.4 g/dL (1.3-4.6) 08/08/24 02:16 Lipase 24 U/L (13-60) 08/08/24 02:16 Procalcitonin 0.16 ng/mL (0-0.5) 08/08/24 02:16 All radiology interpretation(s) finalized by discharge Discharge Plan Discharge Patient Disposition: Home Clinical Impression: Generalized weakness, Heart failure with preserved ejection fraction, Iron deficiency anemia Condition: Stable Prescriptions: No Action sertraline 100 mg tablet 100 mg PO QAM levothyroxine 25 mcg tablet 25 mcg PO QAM levocetirizine 5 mg tablet 5 mg PO QAM hydralazine 100 mg tablet 100 mg PO TID trazodone 150 mg tablet 150 mg PO BEDTIME ferrous sulfate 325 mg (65 mg iron) tablet 325 mg PO DAILY Rx Instructions: take 1 tablet by mouth every other day acetaminophen [Tylenol] 325 mg Tablet 650 mg PO Q6H PRN (Reason: Pain) bisacodyl [Dulcolax (bisacodyl)] 10 mg Suppository 10 mg MT DAILY PRN (Reason: Constipation) nystatin 100,000 unit/gram Powder 1 applic TOPICAL BID insulin aspart U-100 100 unit/mL (3 mL) Insulin Pen See Rx Instructions .ROUTE .COMPLEX Rx Instructions: per sliding scale subcut BEFORE MEALS and at bedtime if blood sugar is: 201-250=2 251-300=4 301-350=6 351-400=8 if over 400 call insulin glargine [Lantus Solostar U-100 Insulin] 100 unit/mL (3 mL) insulin pen 20 unit SUBCUT BID spironolactone 25 mg Tablet 25 mg PO DAILY 30 Days Qty: 30 0RF gabapentin 100 mg Capsule 100 mg PO TID 30 Days Qty: 90 0RF pantoprazole [Protonix] [address] for susp in packet 40 mg PO BID Qty: 60 0RF metolazone 5 mg Tablet 2.5 mg PO DAILY 30 Days Qty: 30 0RF furosemide [Lasix] 40 mg tablet 40 mg PO BID Qty: 60 0RF clonazepam 0.5 mg tablet 0.5 mg PO QPM azithromycin [Zithromax Z-Chavez] 250 mg tablet See Rx Instructions .ROUTE .COMPLEX Qty: 6 0RF Rx Instructions: For 250 mg dose pack: take 500 mg today (day 1), then 250 mg for 4 days (days 2-5) simvastatin 10 mg tablet 10 mg PO QPM tamsulosin 0.4 mg capsule 0.4 mg PO QPM ipratropium-albuterol 0.5 mg-3 mg(2.5 mg base)/3 mL Solution For Nebulization 3 ml inhalation Q6H PRN (Reason: Shortness Of Breath) Qty: 280 0RF isosorbide mononitrate 30 mg Tablet Extended Release 24 Hr 30 mg PO BID Qty: 60 0RF pramipexole 0.25 mg Tablet 0.25 mg PO TID PRN (Reason: Restless Leg Syndrome) Qty: 90 0RF omeprazole 20 mg capsule,delayed release(DR/EC) 20 mg PO BID metoprolol tartrate 25 mg Tablet 25 mg PO BID@0900,2100 Qty: 120 0RF Discharge Orders: Discharge ED (Routine); Ordered 08/08/24 Ordered By: Chepe Cardoso Referrals: Rachel Bills MD [Primary Care Provider] - 1 week Patient Instructions: Weakness (Generalized), Iron Rich Diet (ED), Chronic Kidney Disease (ED), Heart Failure (ED) Activity Restrictions/Additional Instructions: Your evaluation ER included chest x-ray and lab work, all of which was unchanged since your last hospital discharge. You did state you are starting to feel better after being in the ER for couple hours. Please contact hospice and tell them you have recently been in the hospital. Please follow-up with your family practice physician within the next 5 to 7 days for further evaluation and treatment as needed. Thank you for choosing [facility] for your healthcare needs today. Please realize that you were seen in the emergency department and that we are providing you with an emergency medical screening exam and this may not be a complete and all exclusive of all testing and/or medical workup we may need to determine your element or severity of your illness. It is very important that you follow-up as instructed with your primary care provider or specialist for the additional evaluation and to discuss your medical treatment plan. You may return to the emergency department should you have concerns or if your condition changes or worsens in any way. Print Language: [place] Island[place] Coding Level of Care Code ED Egg Sorter for Chg Fwd Related Data Home Medications ?Medication ?Instructions ?Recorded ?Confirmed sertraline 100 mg tablet 100 mg PO QAM 08/07/21 07/20/24 levocetirizine 5 mg tablet 5 mg PO QAM 02/16/22 07/20/24 levothyroxine 25 mcg tablet 25 mcg PO QAM 02/16/22 07/20/24 simvastatin 10 mg tablet 10 mg PO QPM 12/16/23 07/20/24 tamsulosin 0.4 mg capsule 0.4 mg PO QPM 12/16/23 07/20/24 omeprazole 20 mg capsule,delayed 20 mg PO BID 05/19/24 07/20/24 release ferrous sulfate 325 mg (65 mg 325 mg PO DAILY 06/23/24 07/20/24 iron) tablet hydralazine 100 mg tablet 100 mg PO TID 06/23/24 07/20/24 trazodone 150 mg tablet 150 mg PO BEDTIME 06/23/24 07/20/24 acetaminophen 325 mg tablet 650 mg PO Q6H PRN Pain 07/08/24 07/20/24 (Tylenol) bisacodyl 10 mg rectal suppository 10 mg MT DAILY PRN Constipation 07/08/24 07/20/24 (Dulcolax (bisacodyl)) insulin aspart U-100 100 unit/mL See Rx Instructions .Route .COMPLEX 07/08/24 07/20/24 (3 mL) subcutaneous pen insulin glargine 100 unit/mL (3 20 unit SUBCUT BID 07/08/24 07/20/24 mL) subcutaneous pen (Lantus Solostar U-100 Insulin) nystatin 100,000 unit/gram topical 1 applic topical BID 07/08/24 07/20/24 powder clonazepam 0.5 mg tablet 0.5 mg PO QPM 07/20/24 07/20/24 Previous Rx's ?Medication ?Instructions ?Recorded ipratropium 0.5 mg-albuterol 3 mg 3 ml inhalation Q6H PRN Shortness 12/19/23 (2.5 mg base)/3 mL nebulization Of Breath #280 mL soln isosorbide mononitrate 30 mg 30 mg PO BID #60 tabs 12/19/23 tablet,extended release 24 hr pramipexole 0.25 mg tablet 0.25 mg PO TID PRN Restless Leg 12/19/23 Syndrome #90 tabs metoprolol tartrate 25 mg tablet 25 mg PO BID@0900,2100 #120 tabs 05/22/24 furosemide 40 mg tablet (Lasix) 40 mg PO BID #60 tabs 07/15/24 gabapentin 100 mg capsule 100 mg PO TID 30 days #90 caps 07/15/24 metolazone 5 mg tablet 2.5 mg (1/2 x 5 mg) PO DAILY 30 07/15/24 days #30 tabs pantoprazole 40 mg granules 40 mg PO BID #60 ea 07/15/24 delayed-release for susp in packet (Protonix) spironolactone 25 mg tablet 25 mg PO DAILY 30 days #30 tabs 07/15/24 azithromycin 250 mg tablet See Rx Instructions PO .COMPLEX #6 07/20/24 (Zithromax Z-Chavez) tabs Allergies Allergy/AdvReac Type Severity Reaction Status Date / Time No Known Allergies Allergy Verified 07/03/24 16:20
--- NOTE | 2024-08-08 02:21 | PC.NURSE ---
Patient states that he cannot produce urine sample, and refused straight cath.
[2024-08-08 02:25] LABS: Basophils # 0.1 10^3/uL (0.0-0.1); Basophils % 0.5 %; Eosinophils # 0.1 10^3/uL (0.0-0.8); Eosinophils % 0.6 %; Lymphocytes # 0.7 10^3/uL (0.8-4.8); Lymphocytes % 6.6 %; Mean Corpuscular Hemoglobin 26.9 pg (27-33); Mean Corpuscular Volume 89.6 fl (82-101); Mean Platelet Volume 9.8 fL (7.4-10.4); Monocytes # 0.7 10^3/uL (0.2-0.9); Neutrophils # 8.38 10^3/uL (1.8-7.7); Nucleated Red Blood Cells % 0 %; Platelet Count 214 10^3/cmm (157-399); Red Blood Count 2.68 10^6/uL (3.85-5.65); Red Cell Distribution Width 13.2 % (12.1-15.1); White Blood Count 9.98 10^3/uL (3.29-11.43)
[2024-08-08 02:42] LABS: Lactic Sepsis W/Reflex 0.8 mmol/L (0.5-2.2)
[2024-08-08 02:52] LABS: NT Pro B Type Natriuretic Pept 5057 pg/mL (0-125); Procalcitonin 0.16 ng/mL (0-0.5)
[2024-08-08 03:03] LABS: Alanine Aminotransferase 9 U/L (0-41); Albumin Level 3.4 g/dL (3.5-5.2); Alkaline Phosphatase 137 U/L (40-130); Anion Gap 17.5 (5-19); Aspartate Amino Transferase 15 U/L (0-40); Blood Urea Nitrogen 55 mg/dL (8-23); Calcium 8.8 mg/dL (8.5-10.5); Carbon Dioxide 27 mmol/L (22-29); Chloride 89 mmol/L (98-107); Globulin 4.4 g/dL (1.3-4.6); Glomerular Filtration Rate 24.6 mL/min (90-130); Glucose 268 mg/dL (65-115); Lipase 24 U/L (13-60); Magnesium 2.2 mg/dL (1.7-2.3); Osmolality Calculated 293 mOsm/kg (285-295); Phosphorus 3.9 mg/dL (2.5-4.5); Potassium 4.5 mmol/L (3.5-5.1); Sodium 129 mmol/L (136-145); Total Bilirubin 0.2 mg/dL (0.15-1.2); Total Protein 7.8 g/dL (6.6-8.7)
--- NOTE | 2024-08-08 03:49 | PC.NURSE ---
This nurse contacted patient's sister Kaur on behalf of patient request in order to transfer back home.
[2024-08-08 03:50] VITALS: BP 181/90; PULSE 78; O2SAT 99
== END 2024-08-08 04:27 | disposition home or self-care (01) ==
PROVIDERS: Emergency Provider Emergency Medicine; PCP Family Medicine
DX: R53.1 Weakness (principal); D64.9 Anemia, unspecified; E11.9 Type 2 diabetes mellitus without complications; I50.30 Unspecified diastolic (congestive) heart failure; Z79.4 Long term (current) use of insulin; F17.210 Nicotine dependence, cigarettes, uncomplicated
CPT/HCPCS: 36415; 71045; 80053; 83605; 83690; 83735; 83880; 84100; 84145; 85025; 99284

== ENCOUNTER 2024-08-24 07:05 | Emergency (ER) | payer MEDICARE, SELFPAY ==
[2024-08-24] VITALS (17 sets, daily range): BP systolic 161–263; BP diastolic 75–121; PULSE 52–123; RESP 16–20; TEMP 36.3; O2SAT 95–100
--- NOTE | 2024-08-24 07:12 | W.ED.GENADLT ---
Documented by User: Clayton Ricci DO 08/25/24 05:40 HPI - General Adult General: Chief complaint: Skin/Abscess/Foreign Body Stated complaint: left side face swelling Time Seen by Provider: 08/24/24 07:06 History of Present Illness: 69-year-old male presents emergency room from the care home with left-sided facial swelling with induration. He has moderate to severe pain in the area as well. Patient is on hospice for COPD CHF he also has chronic kidney disease and is diabetic. Patient is a dentulous has a set of dentures with him at the bedside but cannot put them in due to pain. It has been going on for about 4 days now was initially started on oral antibiotic through the hospice nurse 4 days ago despite this has continued to advance an increase in discomfort. He denies any difficulty with breathing at this time. Associated symptoms: Deny chest pain, dyspnea or rash Related Data Home Medications ?Medication ?Instructions ?Recorded ?Confirmed sertraline 100 mg tablet 100 mg PO QAM 08/07/21 08/24/24 levocetirizine 5 mg tablet 5 mg PO QAM 02/16/22 08/24/24 levothyroxine 25 mcg tablet 25 mcg PO QAM 02/16/22 08/24/24 simvastatin 10 mg tablet 10 mg PO QPM 12/16/23 08/24/24 tamsulosin 0.4 mg capsule 0.4 mg PO QPM 12/16/23 08/24/24 ferrous sulfate 325 mg (65 mg 325 mg PO DAILY 06/23/24 08/24/24 iron) tablet nystatin 100,000 unit/gram topical 1 applic topical BID 07/08/24 08/24/24 powder acetaminophen 500 mg tablet 1,500 mg PO Q6H PRN Pain 08/24/24 08/24/24 furosemide 40 mg tablet (Lasix) 40 mg PO DAILY 08/24/24 08/24/24 gabapentin 100 mg capsule 100 mg PO TID 08/24/24 08/24/24 hydralazine 100 mg tablet 100 mg PO TID PRN Anxiety 08/24/24 08/24/24 insulin aspart U-100 100 unit/mL See Rx Instructions .Route .COMPLEX 08/24/24 08/24/24 (3 mL) subcutaneous pen (Novolog FlexPen U-100 Insulin aspart) insulin glargine-yfgn 100 unit/mL 20 unit SUBCUT BID 08/24/24 08/24/24 (3 mL) subcutaneous pen isosorbide mononitrate 30 mg 20 mg PO DAILY 08/24/24 08/24/24 tablet,extended release 24 hr spironolactone 50 mg tablet 50 mg PO DAILY 08/24/24 08/24/24 sulfamethoxazole 800 1 tab PO Q12H 08/24/24 08/24/24 mg-trimethoprim 160 mg tablet tramadol 50 mg tablet 50 mg PO Q6H PRN mild or moderate 08/24/24 08/24/24 pain tramadol 50 mg tablet 100 mg PO Q6H PRN severe pain. 08/24/24 08/24/24 trazodone 150 mg tablet 150 mg PO BEDTIME 08/24/24 08/24/24 Previous Rx's ?Medication ?Instructions ?Recorded ipratropium 0.5 mg-albuterol 3 mg 3 ml inhalation Q6H PRN Shortness 12/19/23 (2.5 mg base)/3 mL nebulization Of Breath #280 mL soln pramipexole 0.25 mg tablet 0.25 mg PO TID PRN Restless Leg 12/19/23 Syndrome #90 tabs metoprolol tartrate 25 mg tablet 25 mg PO BID@0900,2100 #120 tabs 05/22/24 Allergies Allergy/AdvReac Type Severity Reaction Status Date / Time No Known Allergies Allergy Verified 07/03/24 16:20 Review of Systems Const: Denies: fever(s) or chills ENMT: Reports: other (Left-sided facial swelling) Card: Denies: chest pain Resp: Denies: dyspnea GI: Denies: abdominal pain : Denies: dysuria, urinary frequency or urinary urgency Musc: Denies: neck pain or back pain Skin/Breast: Denies: rash PFSH ED PFSH: Medical History Pneumonia Anemia Acute hyperkalemia Hypotension Hypochromic microcytic anemia Anxiety and depression Normocytic anemia Heart failure Atrial flutter Respiratory failure Iron deficiency anemia Brain aneurysm Necrotizing fasciitis of shoulder region Diabetes Surgical History Status post colonoscopy (10/18/21) H/O esophagogastroduodenoscopy (10/18/21) History of shoulder surgery Family History Grandfather Clotting disorder Family/Other CAD (coronary artery disease) Cancer Diabetes Stroke Grandmother CAD (coronary artery disease) Dementia Father Cancer Lung disease Mother Cancer Denies family history of Chronic kidney disease (CKD) Suicide Anesthesia complication Bleeding disorder Social History Smoking and tobacco/nicotine status: current every day tobacco/nicotine user (1 ppd, smoked x 50 years) cigarettes Packs smoked per day: 2 Years cigarettes smoked: 50 [ Other cigarette details: started at age 16] Alcohol intake: never Substance/Drug Use: never Physical Exam Const: GENERAL APPEARANCE: cooperative ORIENTATION/CONSCIOUSNESS: Yes awake, Yes oriented to person, Yes oriented to place and Yes oriented to time HENMT: COMMON NORMALS: normocephalic, atraumatic and hearing grossly normal bilaterally HEAD & SCALP: normocephalic and atraumatic Resp: COMMON NORMALS: normal respiratory effort, No retractions, No use of accessory muscles and clear to auscultation bilaterally AUSCULTATION: clear to auscultation bilaterally Cardio: COMMON NORMALS: regular rate, regular rhythm and No murmurs present (Cardio) RATE: regular rate RHYTHM: regular rhythm GI: COMMON NORMALS: Soft to palpation and No hepatosplenomegaly present AUSCULTATION: Yes normoactive bowel sounds PALPATION: Yes Soft to palpation, No Tenderness to palpation present (GI), No Guarding due to palpation present (GI) and Yes No hepatosplenomegaly present Extremity: COMMON NORMALS: normal to inspection, capillary refill normal and no calf tenderness OTHER: 1+ edema lower extremities bilaterally Neuro: SENSORIUM/ORIENTATION: Yes oriented to person, Yes oriented to place and Yes oriented to time Skin: COMMON NORMALS: no rashes or lesions noted GENERAL SKIN EXAM: no rashes or lesions noted Procedures Intubation Time out performed: Yes sedative: Etomidate Mg Given: 20 paralytic: Succinylcholine Mg Given: 100 Laryngoscope: fiber optic video scope ET Tube Size: 8 ET Tube Uncuffed: No Tube Secured Depth (cm): 25 Tube Secured Location: teeth Tube Placement Confirmation: visualized tube passing through cords, equal breath sounds bilaterally, no breath sounds over epigastrium and confirmation by capnometry Patient Tolerated Procedure: well Intubation Complications: none Additional Comments: ET tube withdrawn 1/2 cm after chest x-ray Course Vital Signs: Vital signs: Vital Signs Temperature 97.4 F L 08/24/24 07:07 Pulse Rate 54 L 08/24/24 23:32 Respiratory Rate 17 08/24/24 20:55 Blood Pressure 171/79 08/24/24 23:32 Pulse Oximetry 98 08/24/24 23:32 Oxygen Delivery Me thod Mechanical Ventil ation 08/24/24 19:00 Oxygen Flow Rate 4 08/24/24 07:07 Fraction of Inspir ed Oxygen 40 08/24/24 16:31 MDM - General Adult Medical Decision Making Initially patient showed parotiditis on the left parotid gland we are making arrangements to see ENT at [place] I discussed with Dr. Cardoso who is on-call at our facility he does not have privileges for an incision and drainage of abscess such as this since there does appear to be a forming abscess will need to transfer where surgical surgeons services are available. We initially made arrangements to transfer to [facility] in [place]. However during the time we are waiting for transportation patient began to deteriorate a repeat ABG was done patient was acidotic with hypercapnia. He reported increasing difficulty with speech and swallowing the redness that he had initially had now was extending into the submandibular space crossed the midline across the larynx. An initial CT there was comment about swelling extending to the neck to the level of the pharynx. Immediately after that he was not having any difficulty with breathing or swallowing however over time is developed despite the antibiotics he was given. Discussed with the patient he is willing to be intubated recommend that he be intubated at this time before the he gets any worse. On not sure how much longer it is going to take to get a bed at [facility] his level of care will now have to change so we have contacted them they are working on getting an ICU bed. Patient is agreeable to be intubated was electively intubated see note above. At the time of the end of my shift discussed with the oncoming physician Ebony is still willing to accept the patient have discussed with her body line finisher we are awaiting a callback for bed assignment. Patient care have been transitioned to fl at shift change. Patient had been accepted to [facility] but after shift change Ebony called back and said it was gone to be at least 24 to 48 hours before bed was available. Given that the patient was intubated and in need of fairly urgent surgical evaluation I called [facility] in [place] and patient was accepted to the ICU by the ICU physician Dr. Sanchez. Lab Data 08/24/24 07:22 08/24/24 07:[address] 08/24/24 07:26 IMPRESSION: 1. Marked enlargement of the LEFT parotid gland compatible with acute parotiditis with reactive lymph nodes. Recommend follow-up to resolution to exclude neoplasm in a patient this age 2. No intraparotid drainable abscess at this time 3. Enhancement dilatation with fluid or phlegmon in the LEFT parotid duct. No visualized obstructing calculi. 4. Diffuse induration in the LEFT neck subcutaneous soft tissues extending into the submandibular space with edema extending into the parapharyngeal fat and LEFT pharynx. Notified Clayton Ricci DO at 08/24/2024 9:03 AM. Chest X-Ray 08/24/24 13:09 IMPRESSION: 1. ET tube in place ending about 2 cm above the yue. The tube could be withdrawn an additional 2 cm for optimal position. 2. Mild cardiac enlargement unchanged. No acute process. These findings and recommendations were discussed by phone with the emergency room nurse rAam at 1:29 p.m. 08/24/2024. Laboratory Results WBC 15.47 10^3/uL (3.29-11.43) H 08/24/24 07:22 RBC 2.89 10^6/uL (3.85-5.65) L 08/24/24 07:22 Hgb 7.90 g/dL (11.27-16.99) L 08/24/24 07:22 Hct 25.4 % (37-53) L 08/24/24 07:22 MCV 87.9 fl (82-101) 08/24/24 07:22 MCH 27.3 pg (27-33) 08/24/24 07:22 MCHC 31.1 g/dL (30-55) 08/24/24 07:22 RDW 13.7 % (12.1-15.1) 08/24/24 07:22 Plt Count 208 10^3/cmm (157-399) 08/24/24 07:22 MPV 9.5 fL (7.4-10.4) 08/24/24 07:22 Neut % (Auto) 83.7 % 08/24/24 07:22 Lymph % (Auto) 6.9 % 08/24/24 07:22 [place] % (Auto) 7.8 % 08/24/24 07:22 Eos % (Auto) 0.7 % 08/24/24 07:22 Baso % (Auto) 0.3 % 08/24/24 07:22 Neut # (Auto) 12.95 10^3/uL (1.8-7.7) H 08/24/24 07:22 Lymph # (Auto) 1.1 10^3/uL (0.8-4.8) 08/24/24 07:22 [place] # (Auto) 1.2 10^3/uL (0.2-0.9) H 08/24/24 07:22 Eos # (Auto) 0.1 10^3/uL (0.0-0.8) 08/24/24 07:22 Baso # (Auto) 0.1 10^3/uL (0.0-0.1) 08/24/24 07:22 Nucleated RBC % (auto) 0 % 08/24/24 07:22 Nucleated RBCs # 0.0 /100WBC 08/24/24 07:22 Specimen Type Arterial 08/24/24 15:09 Sample Site Brachial, right 08/24/24 15:09 ABG pH 7.34 (7.35-7.45) L 08/24/24 15:09 ABG pCO2 45.8 mmHg (35-45) H 08/24/24 15:09 ABG pO2 207.0 mmHg (80.0-100.0) H 08/24/24 15:09 ABG PO2/FiO2 Ratio 207 08/24/24 15:09 ABG HCO3 24.5 mmol/L (22-26) 08/24/24 15:09 ABG O2 Saturation 96.2 08/24/24 12:20 ABG Base Excess -1.3 mmol/L (-2.0-2.0) 08/24/24 15:09 Matthew Test N/a 08/24/24 15:09 A-a O2 Gradient 14.7 mmHg (5-10) H 08/24/24 12:20 Hematocrit 21.5 % (42-52) L 08/24/24 15:09 Hgb O2 Saturation 92.7 % (95-100) L 08/24/24 12:20 Carboxyhemoglobin 2.2 %THgb (0.4-20.1) 08/24/24 12:20 Methemoglobin 1.3 % (0.4-1.5) 08/24/24 12:20 Total Hemoglobin 8.3 g/dL (14-18) L 08/24/24 12:20 Sodium 134.0 mmol/L (131-143) 08/24/24 12:20 Potassium 4.9 mmol/L (3.5-5.0) 08/24/24 12:20 Glucose 300.0 mg/dL (70-115) H 08/24/24 12:20 Ionized Calcium 1.2 mmol/L (1.1-1.4) 08/24/24 12:20 O2 Delivery Device Vent 08/24/24 15:09 O2 Liters/Min 4.0 % 08/24/24 12:20 FiO2 100.0 % 08/24/24 15:09 Tidal Volume 0.50 08/24/24 15:09 PEEP 8.0 cmH20 08/24/24 15:09 Stripper Color ID Amh 08/24/24 15:09 Sodium 133 mmol/L (136-145) L 08/24/24 07:22 Potassium 5.0 mmol/L (3.5-5.1) 08/24/24 07:22 Chloride 97 mmol/L (98-107) L 08/24/24 07:22 Carbon Dioxide 24 mmol/L (22-29) 08/24/24 07:22 Anion Gap 17.0 (5-19) 08/24/24 07:22 BUN 67 mg/dL (8-23) H 08/24/24 07:22 Creatinine 3.3 mg/dL (0.7-1.2) H 08/24/24 07:22 GFR Calculation 18.7 mL/min (90-130) L 08/24/24 07:22 Glucose 322 mg/dL (65-115) H 08/24/24 07:22 Calculated Osmolality 308 mOsm/kg (285-295) H 08/24/24 07:22 Lactic Acid 1.1 mmol/L (0.5-2.2) 08/24/24 07:22 Calcium 8.8 mg/dL (8.5-10.5) 08/24/24 07:22 Total Bilirubin 0.2 mg/dL (0.15-1.2) 08/24/24 07:22 AST 18 U/L (0-40) 08/24/24 07:22 ALT 11 U/L (0-41) 08/24/24 07:22 Alkaline Phosphatase 167 U/L (40-130) H 08/24/24 07:22 Total Protein 8.0 g/dL (6.6-8.7) 08/24/24 07:22 Albumin 3.4 g/dL (3.5-5.2) L 08/24/24 07:22 Globulin 4.6 g/dL (1.3-4.6) 08/24/24 07:22 All radiology interpretation(s) finalized by discharge Discharge Plan Discharge Patient Disposition: Xfer Short-Term Hosp Clinical Impression: Acute parotitis, Diabetes mellitus type 2, uncontrolled, with complications Condition: Stable Referrals: Rachel Bills MD [Primary Care Provider] - Print Language: Salvadorean Coding Level of Care Code ED Manager Payment for Chg Fwd Documented by User: Janie Alonso MD 08/24/24 22:50 HPI - General Adult General: Chief complaint: Skin/Abscess/Foreign Body Stated complaint: left side face swelling Time Seen by Provider: 08/24/24 07:06 Related Data Home Medications ?Medication ?Instructions ?Recorded ?Confirmed sertraline 100 mg tablet 100 mg PO QAM 08/07/21 08/24/24 levocetirizine 5 mg tablet 5 mg PO QAM 02/16/22 08/24/24 levothyroxine 25 mcg tablet 25 mcg PO QAM 02/16/22 08/24/24 simvastatin 10 mg tablet 10 mg PO QPM 12/16/23 08/24/24 tamsulosin 0.4 mg capsule 0.4 mg PO QPM 12/16/23 08/24/24 ferrous sulfate 325 mg (65 mg 325 mg PO DAILY 06/23/24 08/24/24 iron) tablet nystatin 100,000 unit/gram topical 1 applic topical BID 07/08/24 08/24/24 powder acetaminophen 500 mg tablet 1,500 mg PO Q6H PRN Pain 08/24/24 08/24/24 furosemide 40 mg tablet (Lasix) 40 mg PO DAILY 08/24/24 08/24/24 gabapentin 100 mg capsule 100 mg PO TID 08/24/24 08/24/24 hydralazine 100 mg tablet 100 mg PO TID PRN Anxiety 08/24/24 08/24/24 insulin aspart U-100 100 unit/mL See Rx Instructions .Route .COMPLEX 08/24/24 08/24/24 (3 mL) subcutaneous pen (Novolog FlexPen U-100 Insulin aspart) insulin glargine-yfgn 100 unit/mL 20 unit SUBCUT BID 08/24/24 08/24/24 (3 mL) subcutaneous pen isosorbide mononitrate 30 mg 20 mg PO DAILY 08/24/24 08/24/24 tablet,extended release 24 hr spironolactone 50 mg tablet 50 mg PO DAILY 08/24/24 08/24/24 sulfamethoxazole 800 1 tab PO Q12H 08/24/24 08/24/24 mg-trimethoprim 160 mg tablet tramadol 50 mg tablet 50 mg PO Q6H PRN mild or moderate 08/24/24 08/24/24 pain tramadol 50 mg tablet 100 mg PO Q6H PRN severe pain. 08/24/24 08/24/24 trazodone 150 mg tablet 150 mg PO BEDTIME 08/24/24 08/24/24 Previous Rx's ?Medication ?Instructions ?Recorded ipratropium 0.5 mg-albuterol 3 mg 3 ml inhalation Q6H PRN Shortness 12/19/23 (2.5 mg base)/3 mL nebulization Of Breath #280 mL soln pramipexole 0.25 mg tablet 0.25 mg PO TID PRN Restless Leg 12/19/23 Syndrome #90 tabs metoprolol tartrate 25 mg tablet 25 mg PO BID@0900,2100 #120 tabs 05/22/24 Allergies Allergy/AdvReac Type Severity Reaction Status Date / Time No Known Allergies Allergy Verified 07/03/24 16:20 COUNTS INCLUDE 234 BEDS AT THE [facility] ED PFSH: Medical History Pneumonia Anemia Acute hyperkalemia Hypotension Hypochromic microcytic anemia Anxiety and depression Normocytic anemia Heart failure Atrial flutter Respiratory failure Iron deficiency anemia Brain aneurysm Necrotizing fasciitis of shoulder region Diabetes Surgical History Status post colonoscopy (10/18/21) H/O esophagogastroduodenoscopy (10/18/21) History of shoulder surgery Family History Grandfather Clotting disorder Family/Other CAD (coronary artery disease) Cancer Diabetes Stroke Grandmother CAD (coronary artery disease) Dementia Father Cancer Lung disease Mother Cancer Denies family history of Chronic kidney disease (CKD) Suicide Anesthesia complication Bleeding disorder Social History Smoking and tobacco/nicotine status: current every day tobacco/nicotine user (1 ppd, smoked x 50 years) cigarettes Packs smoked per day: 2 Years cigarettes smoked: 50 [ Other cigarette details: started at age 16] Alcohol intake: never Substance/Drug Use: never Course Vital Signs: Vital signs: Vital Signs Temperature 97.4 F L 08/24/24 07:07 Pulse Rate 54 L 08/24/24 23:32 Respiratory Rate 17 08/24/24 20:55 Blood Pressure 171/79 08/24/24 23:32 Pulse Oximetry 98 08/24/24 23:32 Oxygen Delivery In thod Mechanical Ventil ation 08/24/24 19:00 Oxygen Flow Rate 4 08/24/24 07:07 Fraction of Inspir ed Oxygen 40 08/24/24 16:31 MDM - General Adult Medical Decision Making Patient care have been transitioned to fl at shift change. Patient had been accepted to [facility] but after shift change [facility] called back and said it was gone to be at least 24 to 48 hours before bed was available. Given that the patient was intubated and in need of fairly urgent surgical evaluation I called [facility] in [place] and patient was accepted to the ICU by the ICU physician Dr. Sanchez. Lab Data 08/24/24 07:22 08/24/24 07:[address] 08/24/24 07:26 IMPRESSION: 1. Marked enlargement of the LEFT parotid gland compatible with acute parotiditis with reactive lymph nodes. Recommend follow-up to resolution to exclude neoplasm in a patient this age 2. No intraparotid drainable abscess at this time 3. Enhancement dilatation with fluid or phlegmon in the LEFT parotid duct. No visualized obstructing calculi. 4. Diffuse induration in the LEFT neck subcutaneous soft tissues extending into the submandibular space with edema extending into the parapharyngeal fat and LEFT pharynx. Notified Clayton Ricci DO at 08/24/2024 9:03 AM. Chest X-Ray 08/24/24 13:09 IMPRESSION: 1. ET tube in place ending about 2 cm above the yue. The tube could be withdrawn an additional 2 cm for optimal position. 2. Mild cardiac enlargement unchanged. No acute process. These findings and recommendations were discussed by phone with the emergency room nurse Aram at 1:29 p.m. 08/24/2024. Laboratory Results WBC 15.47 10^3/uL (3.29-11.43) H 08/24/24 07:22 RBC 2.89 10^6/uL (3.85-5.65) L 08/24/24 07:22 Hgb 7.90 g/dL (11.27-16.99) L 08/24/24 07:22 Hct 25.4 % (37-53) L 08/24/24 07:22 MCV 87.9 fl (82-101) 08/24/24 07:22 MCH 27.3 pg (27-33) 08/24/24 07:22 MCHC 31.1 g/dL (30-55) 08/24/24 07:22 RDW 13.7 % (12.1-15.1) 08/24/24 07:22 Plt Count 208 10^3/cmm (157-399) 08/24/24 07:22 MPV 9.5 fL (7.4-10.4) 08/24/24 07:22 Neut % (Auto) 83.7 % 08/24/24 07:22 Lymph % (Auto) 6.9 % 08/24/24 07:22 [place] % (Auto) 7.8 % 08/24/24 07:22 Eos % (Auto) 0.7 % 08/24/24 07:22 Baso % (Auto) 0.3 % 08/24/24 07:22 Neut # (Auto) 12.95 10^3/uL (1.8-7.7) H 08/24/24 07:22 Lymph # (Auto) 1.1 10^3/uL (0.8-4.8) 08/24/24 07:22 [place] # (Auto) 1.2 10^3/uL (0.2-0.9) H 08/24/24 07:22 Eos # (Auto) 0.1 10^3/uL (0.0-0.8) 08/24/24 07:22 Baso # (Auto) 0.1 10^3/uL (0.0-0.1) 08/24/24 07:22 Nucleated RBC % (auto) 0 % 08/24/24 07:22 Nucleated RBCs # 0.0 /100WBC 08/24/24 07:22 Specimen Type Arterial 08/24/24 15:09 Sample Site Brachial, right 08/24/24 15:09 ABG pH 7.34 (7.35-7.45) L 08/24/24 15:09 ABG pCO2 45.8 mmHg (35-45) H 08/24/24 15:09 ABG pO2 207.0 mmHg (80.0-100.0) H 08/24/24 15:09 ABG PO2/FiO2 Ratio 207 08/24/24 15:09 ABG HCO3 24.5 mmol/L (22-26) 08/24/24 15:09 ABG O2 Saturation 96.2 08/24/24 12:20 ABG Base Excess -1.3 mmol/L (-2.0-2.0) 08/24/24 15:09 Matthew Test N/a 08/24/24 15:09 A-a O2 Gradient 14.7 mmHg (5-10) H 08/24/24 12:20 Hematocrit 21.5 % (42-52) L 08/24/24 15:09 Hgb O2 Saturation 92.7 % (95-100) L 08/24/24 12:20 Carboxyhemoglobin 2.2 %THgb (0.4-20.1) 08/24/24 12:20 Methemoglobin 1.3 % (0.4-1.5) 08/24/24 12:20 Total Hemoglobin 8.3 g/dL (14-18) L 08/24/24 12:20 Sodium 134.0 mmol/L (131-143) 08/24/24 12:20 Potassium 4.9 mmol/L (3.5-5.0) 08/24/24 12:20 Glucose 300.0 mg/dL (70-115) H 08/24/24 12:20 Ionized Calcium 1.2 mmol/L (1.1-1.4) 08/24/24 12:20 O2 Delivery Device Vent 08/24/24 15:09 O2 Liters/Min 4.0 % 08/24/24 12:20 FiO2 100.0 % 08/24/24 15:09 Tidal Volume 0.50 08/24/24 15:09 PEEP 8.0 cmH20 08/24/24 15:09 Stripper Color ID Amh 08/24/24 15:09 Sodium 133 mmol/L (136-145) L 08/24/24 07:22 Potassium 5.0 mmol/L (3.5-5.1) 08/24/24 07:22 Chloride 97 mmol/L (98-107) L 08/24/24 07:22 Carbon Dioxide 24 mmol/L (22-29) 08/24/24 07:22 Anion Gap 17.0 (5-19) 08/24/24 07:22 BUN 67 mg/dL (8-23) H 08/24/24 07:22 Creatinine 3.3 mg/dL (0.7-1.2) H 08/24/24 07:22 GFR Calculation 18.7 mL/min (90-130) L 08/24/24 07:22 Glucose 322 mg/dL (65-115) H 08/24/24 07:22 Calculated Osmolality 308 mOsm/kg (285-295) H 08/24/24 07:22 Lactic Acid 1.1 mmol/L (0.5-2.2) 08/24/24 07:22 Calcium 8.8 mg/dL (8.5-10.5) 08/24/24 07:22 Total Bilirubin 0.2 mg/dL (0.15-1.2) 08/24/24 07:22 AST 18 U/L (0-40) 08/24/24 07:22 ALT 11 U/L (0-41) 08/24/24 07:22 Alkaline Phosphatase 167 U/L (40-130) H 08/24/24 07:22 Total Protein 8.0 g/dL (6.6-8.7) 08/24/24 07:22 Albumin 3.4 g/dL (3.5-5.2) L 08/24/24 07:22 Globulin 4.6 g/dL (1.3-4.6) 08/24/24 07:22 Discharge Plan Discharge Patient Disposition: Xfer Short-Term Hosp Clinical Impression: Acute parotitis, Diabetes mellitus type 2, uncontrolled, with complications Condition: Stable Referrals: Rachel Bills MD [Primary Care Provider] - Print Language: Salvadorean Coding Level of Care Code ED Manager Payment for Josh Gallego
--- NOTE | 2024-08-24 07:26 | CT_ITS ---
WS: [id number] CT FACIAL BONES TECHNIQUE: Contrast-enhanced facial bones with coronal and sagittal reformatted images. CLINICAL INFORMATION: Left facial indurated abscess COMPARISON: None. DLP: 742.[address] scans at [facility] use at least one of these dose optimization techniques: automated exposure control; mA and/or kV adjustment per patient size (includes targeted exams where dose is matched to clinical indication); or iterative reconstruction. FINDINGS: Marked enlargement LEFT parotid gland with heterogeneous enhancement compatible with acute parotitis. Multiple enlarged reactive lymph nodes. Thickening of the platysma. Fluid distention of the LEFT parotid duct with enhancement some of which may represent intraductal phlegmon. No obstructing calculi. Diffuse edema extends into the LEFT facial soft tissues and submandibular space. Edema involving the LEFT oropharynx and pharyngeal wall. No critical airway stenosis. Prior LEFT frontotemporal craniotomy with aneurysm clips along the clinoid and supraclinoid ICA CT/CT facial bones w con [id number] IMPRESSION: 1. Marked enlargement of the LEFT parotid gland compatible with acute parotidi tis with reactive lymph nodes. Recommend follow-up to resolution to exclude josh plasm in a patient this age 2. No intraparotid drainable abscess at this time 3. Enhancement dilatation with fluid or phlegmon in the LEFT parotid duct. No visualized obstructing calculi. 4. Diffuse induration in the LEFT neck subcutaneous soft tissues extending int o the submandibular space with edema extending into the parapharyngeal fat and LEFT pharynx. Notified Clayton Ricci DO at 08/24/2024 9:03 AM.
[2024-08-24 07:44] LABS: Basophils # 0.1 10^3/uL (0.0-0.1); Basophils % 0.3 %; Eosinophils # 0.1 10^3/uL (0.0-0.8); Eosinophils % 0.7 %; Hematocrit 25.4 % (37-53); Lymphocytes # 1.1 10^3/uL (0.8-4.8); Lymphocytes % 6.9 %; Mean Corpuscular HGB Conc 31.1 g/dL (30-55); Mean Corpuscular Hemoglobin 27.3 pg (27-33); Mean Corpuscular Volume 87.9 fl (82-101); Mean Platelet Volume 9.5 fL (7.4-10.4); Monocytes # 1.2 10^3/uL (0.2-0.9); Monocytes % 7.8 %; Neutrophils # 12.95 10^3/uL (1.8-7.7); Neutrophils % 83.7 %; Nucleated Red Blood Cells % 0 %; Platelet Count 208 10^3/cmm (157-399); Red Blood Count 2.89 10^6/uL (3.85-5.65); Red Cell Distribution Width 13.7 % (12.1-15.1); White Blood Count 15.47 10^3/uL (3.29-11.43)
[2024-08-24 07:53] LABS: Lactic Sepsis W/Reflex 1.1 mmol/L (0.5-2.2)
[2024-08-24 07:54] LABS: Alanine Aminotransferase 11 U/L (0-41); Albumin Level 3.4 g/dL (3.5-5.2); Alkaline Phosphatase 167 U/L (40-130); Aspartate Amino Transferase 18 U/L (0-40); Blood Urea Nitrogen 67 mg/dL (8-23); Calcium 8.8 mg/dL (8.5-10.5); Carbon Dioxide 24 mmol/L (22-29); Chloride 97 mmol/L (98-107); Creatinine Clr Calc Pharmacy 32.6509; Globulin 4.6 g/dL (1.3-4.6); Glomerular Filtration Rate 18.7 mL/min (90-130); Glucose 322 mg/dL (65-115); Osmolality Calculated 308 mOsm/kg (285-295); Sodium 133 mmol/L (136-145); Total Bilirubin 0.2 mg/dL (0.15-1.2)
[2024-08-24] MEDS: iohexol 350 mg/mL 500 mL Btl (per mL) IV (08:33)
[2024-08-24] MEDS: sodium chloride 0.9% 500 ML IV (09:02)
--- NOTE | 2024-08-24 09:08 | PC.PHAR ---
Addendum entered by Dana Cota 08/24/24 09:35: After speaking to patient, pharmacy, and Dr Valentine's office-current med list is corrected and has been faxed to [facility]. Original Note: Pt is currently on [facility] [phone]. Several discrepancies on his previous med list compared to current hospice list. Hospice shows Isosorbide dinitrate 30 mg daily and pt has taken Isosorbide Mononitrate ER 30mg daily for a long time. Dr Valentine's nurse Ellie agrees pt should be taking the extended release. Pt also previously was taking insulin aspart. sliding scale, lantus 20 units at hs, Hydralazxine 100mg tid prn, Trazodone 150mg at hs, and bisacodyl 10mg suppository daily prn constipation. Hospice does not have any of these medications on their list.
[2024-08-24] MEDS: morphine 4 mg/mL SDV 1 mL IVP ×2 (10:04→11:50)
[2024-08-24] MEDS: ondansetron 2 mg/ML SDV 2 mL 4 MG IVP (10:04)
[2024-08-24] MEDS: piperacillin-tazobactam 3.375 GM in sodium chloride 0.9% (plus) 50 ML IV (10:07)
[2024-08-24] MEDS: VANCOMYCIN ADD-Vantage 1,000 MG in 0.9% NaCl ADD-Vantage 250 ML 250 MG IV (10:27)
[2024-08-24] MEDS: dexamethasone 10 mg/mL INJ IVP (12:09)
[2024-08-24 12:31] LABS: ABG PCO2 51.7 mmHg (35-45); ABG PH Result 7.28 (7.35-7.45); Alveolar-Arterial Oxygen Gradi 14.7 mmHg (5-10); Arterial Blood Gas Hematocrit 25.4 % (42-52); Base Excess ABG -2.5 mmol/L (-2.0-2.0); Blood Gas Operator Identificat AMH; Blood Gas Sample Site Brachial, right; Blood Gas Sample Type Arterial; Carboxyhemoglobin 2.2 %THgb (0.4-20.1); HCO3 ABG 24.3 mmol/L (22-26); HGB O2 Sat 92.7 % (95-100); Ionized Calcium Level - ABG 1.2 mmol/L (1.1-1.4); Methemoglobin 1.3 % (0.4-1.5); Oxygen Device NC; Oxygen Saturation ABG 96.2; PO2 ABG 80.1 mmHg (80.0-100.0); PO2 FiO2 Ratio Arterial Blood 222; Potassium Level - ABG 4.9 mmol/L (3.5-5.0); Total Hemoglobin 8.3 g/dL (14-18)
[2024-08-24] MEDS: etomidate 2 mg/mL INJ SDV 10 mL 20 MG IVP (12:54)
[2024-08-24] MEDS: succinylcholine 20 mg/mL SDV 10mL 100 MG IV (12:54)
[2024-08-24] MEDS: propofol 1,000 MG/100 ML INJ 4.6 MG IV (13:00)
--- NOTE | 2024-08-24 13:09 | XR_ITS ---
WS: [id number] Exam: XR chest 1V portable [id number] Date/Time of Exam: 08/24/2024 1:09 PM Reason For Exam: intubation Comparison 08/08/2024. An endotracheal tube is been placed and ends about 2 cm above the yue. The lungs are adequately ventilated. Mild cardiac enlargement unchanged. No consolidating infiltrates or pleural effusions. No pneumothorax. The mediastinum is unremarkable for technique. Bony structures are intact. XR/XR chest 1V portable [id number] IMPRESSION: 1. ET tube in place ending about 2 cm above the yue. The tube could be withd rawn an additional 2 cm for optimal position. 2. Mild cardiac enlargement unchanged. No acute process. These findings and recommendations were discussed by phone with the emergency r oom nurse Aram at 1:29 p.m. 08/24/2024.
[2024-08-24 15:19] LABS: ABG PCO2 45.8 mmHg (35-45); ABG PH Result 7.34 (7.35-7.45); Arterial Blood Gas Hematocrit 21.5 % (42-52); Base Excess ABG -1.3 mmol/L (-2.0-2.0); Blood Gas Operator Identificat AMH; Blood Gas Sample Site Brachial, right; Blood Gas Sample Type Arterial; HCO3 ABG 24.5 mmol/L (22-26); Oxygen Device VENT; PO2 FiO2 Ratio Arterial Blood 207
[2024-08-24] MEDS: propofol 1,000 MG/100 ML INJ 45.99 MG IV (19:00)
--- NOTE | 2024-08-24 19:07 | PC.NURSE ---
this nurse took over patient care @1850.
--- NOTE | 2024-08-24 23:30 | PC.NURSE ---
new propofol pulled for [facility] due to bottle almost out before transfer to [facility].
== END 2024-08-24 21:00 | disposition short-term general hospital (02) ==
LOC: ER 07:17 → NP 19:20 → ER 22:50
PROVIDERS: Family Medicine; Emergency Provider Emergency Medicine; PCP Family Medicine
DX: K11.21 Acute sialoadenitis (principal); E11.9 Type 2 diabetes mellitus without complications; I50.9 Heart failure, unspecified; F17.210 Nicotine dependence, cigarettes, uncomplicated
CPT/HCPCS: 31500; 36415; 36600; 70487; 71045; 80051; 80053; 82330; 82803; 82805; 83605; 85025; 87040; 87070; 87205; 94002; 94799; 96365; 96366; 96367; 96375; 96376; 99291; 99292; J0330; J1100; J2270; J2405; J2543; J2704; J3370; J3490; J7040; J7050

== ENCOUNTER 2024-10-12 18:22 | Inpatient (IN) | payer MEDICARE, SELFPAY ==
[2024-10-12] VITALS (10 sets, daily range): BP systolic 154–213; BP diastolic 59–98; PULSE 63–78; RESP 12–20; TEMP 36.3; O2SAT 92–97
--- NOTE | 2024-10-12 18:33 | XRR_ITS ---
PROCEDURE INFORMATION: Exam: XR Chest Exam date and time: 10/12/2024 7:08 PM Age: 69 years old Clinical indication: Other: Hypoxia TECHNIQUE: Imaging protocol: Radiologic exam of the chest. Views: 1 view. COMPARISON: CR XR chest 1V portable [id number] 08/24/2024 1:19 PM FINDINGS: Lungs: Vhto-bk-qiddzetv left basilar atelectasis and/or pneumonia. Pleural spaces: Unremarkable. No pleural effusion. No pneumothorax. Heart/Mediastinum: Unremarkable. No cardiomegaly. Bones/joints: Unremarkable. XR/XR chest 1V portable [id number] IMPRESSION: [id number]-[id number] left basilar atelectasis and/or pneumonia.
--- NOTE | 2024-10-12 18:33 | CTR_ITS ---
PROCEDURE INFORMATION: Exam: CT Head Without Contrast Exam date and time: 10/12/2024 7:04 PM Age: 69 years old Clinical indication: Altered mental status/memory loss; Additional info: Mental status change TECHNIQUE: Imaging protocol: Computed tomography of the head without contrast. Radiation optimization: All CT scans at this facility use at least one of these dose optimization techniques: automated exposure control; mA and/or kV adjustment per patient size (includes targeted exams where dose is matched to clinical indication); or iterative reconstruction. COMPARISON: CT head dated February 15, 2022. RADIATION DOSE METRICS: Total DLP (mGy-cm): 1916.6 FINDINGS: Brain: Normal. No hemorrhage. Unremarkable white matter. No mass effect. Cerebral ventricles: No ventriculomegaly. Paranasal sinuses: Visualized sinuses are unremarkable. No fluid levels. Mastoid air cells: Visualized mastoid air cells are well aerated. Bones: Stable left craniectomy with left aneurysm clip and metallic artifact. Soft tissues: Unremarkable. Other findings: Moderate calcified intracranial atherosclerotic vessel disease. CT/CT head wo con* [id number] IMPRESSION: 1. Stable left craniectomy with left aneurysm clip and metallic artifact. 2. No acute intracranial findings.
--- NOTE | 2024-10-12 18:34 | ECG_ITS ---
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: : 1955 Requested By: Evan Euceda Order Number: [id number] Gaudencio MD: LALITA PEACE Measurements Intervals [place] Rate: 69 P: 55 TX: 170 QRS: 39 QRSD: 119 T: 58 QT: 403 QTc: 435 Interpretive Statements SINUS RHYTHM WITH SINUS ARRHYTHMIA MODERATE INTRAVENTRICULAR CONDUCTION DELAY [105+ ms QRS DURATION, 80+ ms Q/S IN V1/V2, NO Q AND 60+ ms R IN I/aVL/V5/V6] Compared to ECG 07/20/2024 14:00:09 Intraventricular conduction delay now present Atrial fibrillation no longer present Electronically Signed On 10-15-2024 23:35:46 CDT by LALITA PEACE [id number] [id number]
[2024-10-12 18:49] LABS: ABG PH Result 7.27 (7.35-7.45); Arterial Blood Gas Hematocrit 27.3 % (42-52); Base Excess ABG 3.4 mmol/L (-2.0-2.0); Blood Gas Allen Test Pos; Blood Gas Operator Identificat MONRO; Blood Gas Sample Site Radial, left; Blood Gas Sample Type Arterial; HCO3 ABG 31.4 mmol/L (22-26); Oxygen Device NC; PO2 ABG 56.9 mmHg (80.0-100.0); PO2 FiO2 Ratio Arterial Blood 177
--- NOTE | 2024-10-12 18:58 | W.ED.GENADLT ---
HPI - General Adult General: Chief complaint: ER Hold Stated complaint: decreased LOC Time Seen by Provider: 10/12/24 18:24 History of Present Illness: Patient is a 69-year-old male on hospice from home by ambulance seen for altered mental status. 911 was called by his caregiver who said that he was normal yesterday and today was somnolent to the point where she could not interact with him. My understanding is that guardian would like all medical interventions to be made despite his hospice status and they are happy to revoke it if needed. He arrives unaccompanied and is not able to provide history for himself. History was gleaned by nurse calling guardian. Guardian states that he is not compliant with his medications and sometimes uses too much THC. He only wears oxygen intermittently at home and was found to have saturation of 81% on room air when EMS found him. Related Data Home Medications ?Medication ?Instructions ?Recorded ?Confirmed sertraline 100 mg tablet 100 mg PO QAM 08/07/21 08/24/24 levocetirizine 5 mg tablet 5 mg PO QAM 02/16/22 08/24/24 levothyroxine 25 mcg tablet 25 mcg PO QAM 02/16/22 08/24/24 simvastatin 10 mg tablet 10 mg PO QPM 12/16/23 08/24/24 tamsulosin 0.4 mg capsule 0.4 mg PO QPM 12/16/23 08/24/24 ferrous sulfate 325 mg (65 mg 325 mg PO DAILY 06/23/24 08/24/24 iron) tablet nystatin 100,000 unit/gram topical 1 applic topical BID 07/08/24 08/24/24 powder acetaminophen 500 mg tablet 1,500 mg PO Q6H PRN Pain 08/24/24 08/24/24 furosemide 40 mg tablet (Lasix) 40 mg PO DAILY 08/24/24 08/24/24 gabapentin 100 mg capsule 100 mg PO TID 08/24/24 08/24/24 hydralazine 100 mg tablet 100 mg PO TID PRN Anxiety 08/24/24 08/24/24 insulin aspart U-100 100 unit/mL See Rx Instructions .Route .COMPLEX 08/24/24 08/24/24 (3 mL) subcutaneous pen (Novolog FlexPen U-100 Insulin aspart) insulin glargine-yfgn 100 unit/mL 20 unit SUBCUT BID 08/24/24 08/24/24 (3 mL) subcutaneous pen isosorbide mononitrate 30 mg 20 mg PO DAILY 08/24/24 08/24/24 tablet,extended release 24 hr spironolactone 50 mg tablet 50 mg PO DAILY 08/24/24 08/24/24 sulfamethoxazole 800 1 tab PO Q12H 08/24/24 08/24/24 mg-trimethoprim 160 mg tablet tramadol 50 mg tablet 50 mg PO Q6H PRN mild or moderate 08/24/24 08/24/24 pain tramadol 50 mg tablet 100 mg PO Q6H PRN severe pain. 08/24/24 08/24/24 trazodone 150 mg tablet 150 mg PO BEDTIME 08/24/24 08/24/24 Previous Rx's ?Medication ?Instructions ?Recorded ipratropium 0.5 mg-albuterol 3 mg 3 ml inhalation Q6H PRN Shortness 12/19/23 (2.5 mg base)/3 mL nebulization Of Breath #280 mL soln pramipexole 0.25 mg tablet 0.25 mg PO TID PRN Restless Leg 12/19/23 Syndrome #90 tabs metoprolol tartrate 25 mg tablet 25 mg PO BID@0900,2100 #120 tabs 05/22/24 Allergies Allergy/AdvReac Type Severity Reaction Status Date / Time No Known Allergies Allergy Verified 07/03/24 16:20 FORMERLY [facility], [facility]–1983 ED PFSH: Medical History Pneumonia Anemia Acute hyperkalemia Hypotension Hypochromic microcytic anemia Anxiety and depression Normocytic anemia Heart failure Atrial flutter Respiratory failure Iron deficiency anemia Brain aneurysm Necrotizing fasciitis of shoulder region Diabetes Surgical History Status post colonoscopy (10/18/21) H/O esophagogastroduodenoscopy (10/18/21) History of shoulder surgery Family History Grandfather Clotting disorder Family/Other CAD (coronary artery disease) Cancer Diabetes Stroke Grandmother CAD (coronary artery disease) Dementia Father Cancer Lung disease Mother Cancer Denies family history of Chronic kidney disease (CKD) Suicide Anesthesia complication Bleeding disorder Social History Smoking and tobacco/nicotine status: current every day tobacco/nicotine user (1 ppd, smoked x 50 years) cigarettes Packs smoked per day: 2 Years cigarettes smoked: 50 [ Other cigarette details: started at age 16] Alcohol intake: never Substance/Drug Use: never Physical Exam Const: COMMON NORMALS: no acute distress HENMT: COMMON NORMALS: normocephalic and atraumatic HEAD & SCALP: normocephalic and atraumatic Eye: COMMON NORMALS: Equal, round and reactive pupils present, EOMs intact bilaterally and no scleral icterus PUPIL: Yes Equal, round and reactive pupils present Resp: COMMON NORMALS: normal respiratory effort and No retractions Cardio: COMMON NORMALS: regular rate, regular rhythm and No murmurs present (Cardio) RATE: regular rate RHYTHM: regular rhythm GI: COMMON NORMALS: Normal to inspection, nondistended, normoactive bowel sounds present, Soft to palpation and non-tender PALPATION: Yes Soft to palpation Neuro: OTHER: Somnolent, grimaces to painful stimulus. Does not follow directions or answer questions. No obvious lateralizing deficits of sensation or strength. Skin: COMMON NORMALS: no rashes or lesions noted GENERAL SKIN EXAM: no rashes or lesions noted Course Vital Signs: Vital signs: Vital Signs Temperature 97.3 F L 10/12/24 18:23 Pulse Rate 71 10/13/24 04:00 Respiratory Rate 21 H 10/13/24 03:30 Blood Pressure 146/58 10/13/24 04:00 Pulse Oximetry 96 10/13/24 04:00 Oxygen Delivery Me thod Nasal Cannula, Bi PAP 10/13/24 04:10 Oxygen Flow Rate 4 10/12/24 20:30 Fraction of Inspir ed Oxygen 50 10/13/24 00:56 MDM - General Adult Medical Decision Making On arrival, patient was quite somnolent but vital signs are stable on nasal cannula oxygen. As time progressed, he became more more agitated and hallucinated, stating that there are people on the ceiling and behind the machines in the room. Laboratory evaluation showed hyperkalemia for which she was given several doses of insulin and glucose as well as IV fluids and calcium gluconate. EKG change of T wave tenting improved and potassium did drop appreciably with treatments. He required multiple doses of Ativan for his agitation. With respect to hospice, family states that he was placed on hospice to help get resources in the home as he did not want to live in a fci and insurance would not pay for other in-home resources. Both patient and DPOA state that they would like to rescind hospice at this time to pursue inpatient care for his hyperkalemia. CT brain shows nothing acute. True etiology of his altered mental status is unclear at this time. Blood gas did not imply hypercarbia to be the etiology and his chronic kidney disease appears to be stable thus metabolic encephalopathy is considered but not obviously the source. He will be admitted to the hospital service in guarded but relatively stable condition Lab Data 10/12/24 18:58 10/13/24 01:20 Radiology Impressions Chest X-Ray 10/12/24 18:33 IMPRESSION: Isin-yv-arnhboxm left basilar atelectasis and/or pneumonia. Head CT 10/12/24 18:33 IMPRESSION: 1. Stable left craniectomy with left aneurysm clip and metallic artifact. 2. No acute intracranial findings. Laboratory Results WBC 10.39 10^3/uL (3.29-11.43) 10/12/24 18:58 RBC 3.12 10^6/uL (3.85-5.65) L 10/12/24 18:58 Hgb 8.50 g/dL (11.27-16.99) L 10/12/24 18:58 Hct 29.1 % (37-53) L 10/12/24 18:58 MCV 93.3 fl (82-101) 10/12/24 18:58 MCH 27.2 pg (27-33) 10/12/24 18:58 MCHC 29.2 g/dL (30-55) L 10/12/24 18:58 RDW 15.5 % (12.1-15.1) H 10/12/24 18:58 Plt Count 162 10^3/cmm (157-399) 10/12/24 18:58 MPV 9.9 fL (7.4-10.4) 10/12/24 18:58 Neut % (Auto) 88.4 % 10/12/24 18:58 Lymph % (Auto) 4.2 % 10/12/24 18:58 [place] % (Auto) 6.4 % 10/12/24 18:58 Eos % (Auto) 0.0 % 10/12/24 18:58 Baso % (Auto) 0.2 % 10/12/24 18:58 Neut # (Auto) 9.18 10^3/uL (1.8-7.7) H 10/12/24 18:58 Lymph # (Auto) 0.4 10^3/uL (0.8-4.8) L 10/12/24 18:58 [place] # (Auto) 0.7 10^3/uL (0.2-0.9) 10/12/24 18:58 Eos # (Auto) 0.0 10^3/uL (0.0-0.8) 10/12/24 18:58 Baso # (Auto) 0.0 10^3/uL (0.0-0.1) 10/12/24 18:58 Nucleated RBC % (auto) 0 % 10/12/24 18:58 Nucleated RBCs # 0.0 /100WBC 10/12/24 18:58 PT 15.90 SECONDS (12.1-14.9) H 10/13/24 02:45 INR 1.19 (0.8-1.2) 10/13/24 02:45 APTT 26.9 SECONDS (23.9-36.7) 10/13/24 02:45 Specimen Type Arterial 10/12/24 18:35 Sample Site Radial, left 10/12/24 18:35 ABG pH 7.27 (7.35-7.45) L 10/12/24 18:35 ABG pO2 56.9 mmHg (80.0-100.0) L 10/12/24 18:35 ABG PO2/FiO2 Ratio 177 10/12/24 18:35 ABG HCO3 31.4 mmol/L (22-26) H 10/12/24 18:35 ABG Base Excess 3.4 mmol/L (-2.0-2.0) H 10/12/24 18:35 Matthew Test Pos 10/12/24 18:35 Hematocrit 27.3 % (42-52) L 10/12/24 18:35 O2 Delivery Device Nc 10/12/24 18:35 O2 Liters/Min 3.0 % 10/12/24 18:35 FiO2 32.0 % 10/12/24 18:35 Agriculture Department Chair ID [place] 10/12/24 18:35 Sodium 134 mmol/L (136-145) L 10/13/24 01:20 Potassium 6.0 mmol/L (3.5-5.1) H 10/13/24 01:20 Chloride 95 mmol/L (98-107) L 10/13/24 01:20 Carbon Dioxide 27 mmol/L (22-29) 10/13/24 01:20 Anion Gap 18.0 (5-19) 10/13/24 01:20 BUN 60 mg/dL (8-23) H 10/13/24 01:20 Creatinine 3.2 mg/dL (0.7-1.2) H 10/13/24 01:20 GFR Calculation 19.4 mL/min (90-130) L 10/13/24 01:20 Glucose 217 mg/dL (65-115) H 10/13/24 01:20 POC Glucose 159 mg/dL (70-110) H 10/13/24 00:39 Calculated Osmolality 301 mOsm/kg (285-295) H 10/13/24 01:20 Lactic Acid 1.3 mmol/L (0.5-2.2) 10/12/24 18:58 Calcium 8.5 mg/dL (8.5-10.5) 10/13/24 01:20 Total Bilirubin 0.3 mg/dL (0.15-1.2) 10/12/24 18:58 AST 20 U/L (0-40) 10/12/24 18:58 ALT 10 U/L (0-41) 10/12/24 18:58 Alkaline Phosphatase 174 U/L (40-130) H 10/12/24 18:58 Ammonia 20 umol/L (16-60) 10/13/24 01:20 Troponin T Baseline 178 ng/L (0-15) H* 10/12/24 18:58 NT-Pro-B Natriuret Pep 6418 pg/mL (0-125) H 10/12/24 18:58 Total Protein 7.9 g/dL (6.6-8.7) 10/12/24 18:58 Albumin 3.8 g/dL (3.5-5.2) 10/12/24 18:58 Globulin 4.1 g/dL (1.3-4.6) 10/12/24 18:58 Urine Color Yellow (Yellow) 10/12/24 23:05 Urine Appearance Clear (CLEAR) 10/12/24 23:05 Urine pH 5.0 (5-7) 10/12/24 23:05 Ur Specific [place] 1.012 (1.005-1.030) 10/12/24 23:05 Urine Protein 2+ (Negative) A 10/12/24 23:05 Urine Glucose (UA) Negative (Normal) 10/12/24 23:05 Urine Ketones Negative (Negative) 10/12/24 23:05 Urine Blood Negative (Negative) 10/12/24 23:05 Urine Nitrate Negative (Negative) 10/12/24 23:05 Urine Bilirubin Negative (Negative) 10/12/24 23:05 Urine Urobilinogen 1.0 mg/dL (Negative) 10/12/24 23:05 Ur Leukocyte Esterase Negative (Negative) 10/12/24 23:05 Urine RBC 0-2 /hpf (0-2) 10/12/24 23:05 Urine WBC 0-5 /hpf (0-5) 10/12/24 23:05 Ur Squamous Epith Cells 0-5 /hpf (0-5) 10/12/24 23:05 Amorphous Sediment Not Reportable 10/12/24 23:05 Urine Bacteria None seen /hpf (NONE) 10/12/24 23:05 Hyaline Casts 29.78 /lpf 10/12/24 23:05 Fine Granular Casts 0-4 /lpf H 10/12/24 23:05 Urine Opiates Screen Positive ng/mL (Negative) H 10/12/24 23:05 Ur Barbiturates Screen Negative ng/mL (Negative) 10/12/24 23:05 Ur Phencyclidine Scrn Negative ng/mL (Negative) 10/12/24 23:05 Ur Amphetamines Screen Negative ng/mL (Negative) 10/12/24 23:05 U Benzodiazepines Scrn Negative ng/mL (Negative) 10/12/24 23:05 Urine Cocaine Screen Negative ng/mL (Negative) 10/12/24 23:05 U Marijuana (THC) Screen Negative ng/mL (Negative) 10/12/24 23:05 Ethyl Alcohol < 10 mg/dL (0-10) 10/12/24 18:58 Serum Ketones Negative (Negative) 10/12/24 18:58 All radiology interpretation(s) finalized by discharge EKG Data EKG 1: Computer generated interpretation: Chest X-Ray 10/12/24 18:33 IMPRESSION: Duvi-ya-gddwbvhu left basilar atelectasis and/or pneumonia. Head CT 10/12/24 18:33 IMPRESSION: 1. Stable left craniectomy with left aneurysm clip and metallic artifact. 2. No acute intracranial findings. Other EKG comments: EKG: Time?1845?sinus rhythm with sinus arrhythmia, rate of 69, no ST segment elevation or depression, no T wave inversions, T waves are somewhat symmetrical. QRS complexes are narrow. QTc = 423. EKG 2: Interpretation: Repeat EKG at 0055 after insulin and glucose given for hyperkalemia. Sinus rhythm, rate of 78, no ST segment elevation or depression, QRS complexes are narrow. T waves have normal morphology. T wave Tenting from prior EKG has improved. QTc = 426 Computer generated interpretation: Chest X-Ray 10/12/24 18:33 IMPRESSION: Jgoe-ih-tystgwre left basilar atelectasis and/or pneumonia. Head CT 10/12/24 18:33 IMPRESSION: 1. Stable left craniectomy with left aneurysm clip and metallic artifact. 2. No acute intracranial findings. Discharge Plan Discharge Patient Disposition: Admitted As Inpatient Admit Provider: Mary Swanson Clinical Impression: Acute hyperkalemia, Acute alteration in mental status Condition: Stable Discharge Diet: Advance as tolerated Discharge Activity: Increase activity as tolerated Coding Level of Care Code ED Pbx Technician for Elinorg Julián
[2024-10-12 19:16] LABS: Basophils % 0.2 %; Hematocrit 29.1 % (37-53); Lymphocytes # 0.4 10^3/uL (0.8-4.8); Lymphocytes % 4.2 %; Mean Corpuscular HGB Conc 29.2 g/dL (30-55); Mean Corpuscular Hemoglobin 27.2 pg (27-33); Mean Corpuscular Volume 93.3 fl (82-101); Mean Platelet Volume 9.9 fL (7.4-10.4); Monocytes # 0.7 10^3/uL (0.2-0.9); Monocytes % 6.4 %; Neutrophils # 9.18 10^3/uL (1.8-7.7); Neutrophils % 88.4 %; Nucleated Red Blood Cells % 0 %; Platelet Count 162 10^3/cmm (157-399); Red Blood Count 3.12 10^6/uL (3.85-5.65); Red Cell Distribution Width 15.5 % (12.1-15.1); White Blood Count 10.39 10^3/uL (3.29-11.43)
[2024-10-12 19:27] LABS: Ketone (Acetest) Serum Negative (Negative)
[2024-10-12 19:34] LABS: Lactic Sepsis W/Reflex 1.3 mmol/L (0.5-2.2)
[2024-10-12 19:37] LABS: Troponin(5th) Baseline 178 ng/L (0-15)
[2024-10-12 19:46] LABS: Alanine Aminotransferase 10 U/L (0-41); Albumin Level 3.8 g/dL (3.5-5.2); Alkaline Phosphatase 174 U/L (40-130); Aspartate Amino Transferase 20 U/L (0-40); Blood Urea Nitrogen 57 mg/dL (8-23); Calcium 8.5 mg/dL (8.5-10.5); Carbon Dioxide 29 mmol/L (22-29); Chloride 95 mmol/L (98-107); Globulin 4.1 g/dL (1.3-4.6); Glomerular Filtration Rate 19.4 mL/min (90-130); Glucose 197 mg/dL (65-115); NT Pro B Type Natriuretic Pept 6418 pg/mL (0-125); Osmolality Calculated 303 mOsm/kg (285-295); Sodium 136 mmol/L (136-145); Total Bilirubin 0.3 mg/dL (0.15-1.2); Total Protein 7.9 g/dL (6.6-8.7)
[2024-10-12] MEDS: dextrose 10% 250 ML 1000 ML IV (20:23)
[2024-10-12] MEDS: insulin regular-human 100 units/1 mL 10 UNIT IVP (20:37)
[2024-10-12 21:10] LABS: Alcohol Level < 10 mg/dL (0-10)
[2024-10-12] MEDS: LORazepam 1 MG/0.5 ML injection 0.5 MG IVP (22:09)
[2024-10-12 22:37] LABS: Glucose Point of Care 204 mg/dL (70-110)
[2024-10-12 22:54] LABS: Anion Gap 18.5 (5-19); Blood Urea Nitrogen 59 mg/dL (8-23); Calcium 8.2 mg/dL (8.5-10.5); Carbon Dioxide 25 mmol/L (22-29); Chloride 96 mmol/L (98-107); Glomerular Filtration Rate 19.4 mL/min (90-130); Glucose 203 mg/dL (65-115); Osmolality Calculated 298 mOsm/kg (285-295); Sodium 133 mmol/L (136-145)
[2024-10-12 22:55] LABS: Potassium 6.5 mmol/L (3.5-5.1)
[2024-10-12 23:23] LABS: Bilirubin Urine Negative (Negative); Blood Urine Negative (Negative); Glucose Urine UA Negative (Normal); Ketones Urine Negative (Negative); Leukocyte Esterase Urine Negative (Negative); Nitrate Urine Negative (Negative); Protein Urine 2+ (Negative); Specific Gravity, Urine 1.012 (1.005-1.030); Urine Appearance Clear (CLEAR); Urine Color Yellow (Yellow)
[2024-10-12 23:28] LABS: Bacteria Urine None Seen /hpf; Hyaline Casts Urine 29.78 /lpf; RBC Urine 0-2 /hpf (0-2); Squamous Epithelial Cell Urine 0-5 /hpf (0-5); WBC Urine 0-5 /hpf (0-5)
[2024-10-12 23:29] LABS: Amphetamines Screen Urine Negative (Negative); Barbiturates Screen Urine Negative (Negative); Benzodiazepines Screen Urine Negative (Negative); Cocaine Screen Urine Negative (Negative); Opiate Screen Urine Positive (Negative); PCP Screen Urine Negative (Negative); THC Screen Urine Negative (Negative)
[2024-10-12 23:51] LABS: UA Slide Review UA Slide Review Perf
[2024-10-12 23:52] LABS: Add Urine Culture? No; Fine Granular Casts Urine 0-4 /lpf
[2024-10-13] VITALS (44 sets, daily range): BP systolic 124–204; BP diastolic 51–117; PULSE 58–104; RESP 10–30; TEMP 36.4–36.9; O2SAT 77–100
--- NOTE | 2024-10-13 00:52 | ECG_ITS ---
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1955 Requested By: Evan Euceda Order Number: [id number] Gaudencio MD: LALITA PEACE Measurements Intervals [place] Rate: 78 P: 13 TN: 179 QRS: 1 QRSD: 118 T: 53 QT: 393 QTc: 449 Interpretive Statements SINUS RHYTHM MODERATE INTRAVENTRICULAR CONDUCTION DELAY [105+ ms QRS DURATION, 80+ ms Q/S IN V1/V2, NO Q AND 60+ ms R IN I/aVL/V5/V6] MINIMAL ST DEPRESSION [0.025+ mV ST DEPRESSION] INTERPRETATION BASED ON A DEFAULT AGE OF 40 YEARS Compared to ECG 10/12/2024 18:46:38 ST (T wave) deviation now present Sinus arrhythmia no longer present Electronically Signed On 10-15-2024 23:35:14 CDT by LALITA PEACE [email or web address] [id number]
[2024-10-13] MEDS: insulin regular-human 100 units/1 mL 10 UNIT IVP (01:06)
[2024-10-13] MEDS: dextrose 10% 250 ML 1000 ML IV (01:06)
[2024-10-13] MEDS: LORazepam 1 MG/0.5 ML injection IVP (01:18)
[2024-10-13] MEDS: calcium gluconate 0.1 gm/mL 10% SDV 10mL 1 GM IVP (01:25)
[2024-10-13] MEDS: sodium chloride 0.9% 1,000 ML 999 ML IV (01:30)
[2024-10-13 01:44] LABS: Ammonia 20 umol/L (16-60); Blood Urea Nitrogen 60 mg/dL (8-23); Calcium 8.5 mg/dL (8.5-10.5); Carbon Dioxide 27 mmol/L (22-29); Chloride 95 mmol/L (98-107); Glomerular Filtration Rate 19.4 mL/min (90-130); Glucose 217 mg/dL (65-115); Osmolality Calculated 301 mOsm/kg (285-295); Sodium 134 mmol/L (136-145)
[2024-10-13 02:30] LABS: Glucose Point of Care 159 mg/dL (70-110)
--- NOTE | 2024-10-13 02:46 | PM.HP ---
Providers/Chief Complaint Admitting Physician: Mary Swanson MD Primary Care Provider: Rachel Bills MD Chief Complaint: decreased LOC History of Present Illness No family member was around at the time of admission. Patient was AOx1 to self at the time that he was being seen. Hx was obtained from chart review, the ED nurse and ED Physician. Tyrel Thomas is a 69 year old man, on home hospice, w/ chronic hypoxic resp failure on 4L at baseline & BiPAP at night, concern for non-compliance, IDDM2, chronic HFpEF, CKDIV, COPD on BiPAP, HTN, allergic rhinitis, hypothyroidism, Insomnia, RLS, who was brought to the ED on 10/13/2023 after he was deemed altered by the hospice nurse from [facility] on routine visit. Per report, the sister revoked home hospice. She told the ED physician and nurse that the patient was on hospice so that he can get help at home, not necessarily that he is end of life. Per ED physician, the patient declined usp stay. The ED nurse states that the home hospice nurse called to inform her that the patient was full code on hospice. When EMS arrived, patient was not on his O2 and his O2 sat was 83% on RA. In the ED, the patient was initially unresponsive to pain. He became agitated and agressive when waking up and was given a total of 1.5mg of Ativan. His vital signs were significant for elevated BP of 213/84 mmHg. His labs showed K of 6.5, Cr of 3.2 (baseline Cr of 2.6-3.3 as of 08/2023). His UDS was negative for THC, as has been shown in the past, but positive for opiates (on Tramadol prn at home). His UA was negative for a UTI, but showed fine granular casts. He had no leukocytosis. His ABG was 7.27/___/56.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 His CXR showed moderate mild to moderate L. basilar atelectasis vs pneumonia. His hyperkalemia was medidcally managed and he was placed on BiPAP. Also in the ED, per nurse, the patient had a UOP of ~400cc. At the time that he was being admitted, he wanted to urinate, but could not, so a royal catheter was placed and an additional 1L was removed. Per nurse, the patient's BP improved with Ativan. Per chart review, the patient was last seen here on 08/24/2024 for an acute otitis, that progressed to the point that he required intubation and transferred to [facility] in [place], [place]. Review of Systems General: Reports: ROS unobtainable due to medical condition and ROS unobtainable due to mental status Medications/Allergies Home Medications ?Medication ?Instructions ?Recorded ?Confirmed ?Last Taken ?Type sertraline 100 mg tablet 100 mg PO QAM 08/07/21 08/24/24 08/24/24 History levocetirizine 5 mg tablet 5 mg PO QAM 02/16/22 08/24/24 08/24/24 History levothyroxine 25 mcg tablet 25 mcg PO QAM 02/16/22 08/24/24 08/24/24 History simvastatin 10 mg tablet 10 mg PO QPM 12/16/23 08/24/24 08/23/24 History tamsulosin 0.4 mg capsule 0.4 mg PO QPM 12/16/23 08/24/24 08/23/24 History ipratropium 0.5 mg-albuterol 3 mg 3 ml inhalation Q6H PRN Shortness 12/19/23 08/24/24 07/19/24 Rx (2.5 mg base)/3 mL nebulization Of Breath #280 mL soln pramipexole 0.25 mg tablet 0.25 mg PO TID PRN Restless Leg 12/19/23 08/24/24 07/20/24 Rx Syndrome #90 tabs metoprolol tartrate 25 mg tablet 25 mg PO BID@0900,2100 #120 tabs 05/22/24 08/24/24 08/24/24 Rx ferrous sulfate 325 mg (65 mg 325 mg PO DAILY 06/23/24 08/24/24 08/24/24 History iron) tablet nystatin 100,000 unit/gram topical 1 applic topical BID 07/08/24 08/24/24 07/20/24 History powder acetaminophen 500 mg tablet 1,500 mg PO Q6H PRN Pain 08/24/24 08/24/24 Unknown History furosemide 40 mg tablet (Lasix) 40 mg PO DAILY 08/24/24 08/24/24 08/24/24 History gabapentin 100 mg capsule 100 mg PO TID 08/24/24 08/24/24 08/24/24 History hydralazine 100 mg tablet 100 mg PO TID PRN Anxiety 08/24/24 08/24/24 Unknown History insulin aspart U-100 100 unit/mL See Rx Instructions .Route .COMPLEX 08/24/24 08/24/24 08/24/24 History (3 mL) subcutaneous pen (Novolog FlexPen U-100 Insulin aspart) insulin glargine-yfgn 100 unit/mL 20 unit SUBCUT BID 08/24/24 08/24/24 08/24/24 History (3 mL) subcutaneous pen isosorbide mononitrate 30 mg 20 mg PO DAILY 08/24/24 08/24/24 08/24/24 History tablet,extended release 24 hr spironolactone 50 mg tablet 50 mg PO DAILY 08/24/24 08/24/24 08/23/24 History sulfamethoxazole 800 1 tab PO Q12H 08/24/24 08/24/24 08/24/24 History mg-trimethoprim 160 mg tablet tramadol 50 mg tablet 50 mg PO Q6H PRN mild or moderate 08/24/24 08/24/24 Unknown History pain tramadol 50 mg tablet 100 mg PO Q6H PRN severe pain. 08/24/24 08/24/24 Unknown History trazodone 150 mg tablet 150 mg PO BEDTIME 08/24/24 08/24/24 08/23/24 History Allergies Allergy/AdvReac Type Severity Reaction Status Date / Time No Known Allergies Allergy Verified 07/03/24 16:20 PFSH Acute PFSH: Medical History Pneumonia Anemia Acute hyperkalemia Hypotension Hypochromic microcytic anemia Anxiety and depression Normocytic anemia Heart failure Atrial flutter Respiratory failure Iron deficiency anemia Brain aneurysm Necrotizing fasciitis of shoulder region Diabetes Surgical History Status post colonoscopy (10/18/21) H/O esophagogastroduodenoscopy (10/18/21) History of shoulder surgery Family History Grandfather Clotting disorder Family/Other CAD (coronary artery disease) Cancer Diabetes Stroke Grandmother CAD (coronary artery disease) Dementia Father Cancer Lung disease Mother Cancer Denies family history of Chronic kidney disease (CKD) Suicide Anesthesia complication Bleeding disorder Social History Smoking and tobacco/nicotine status: current every day tobacco/nicotine user (1 ppd, smoked x 50 years) cigarettes Packs smoked per day: 2 Years cigarettes smoked: 50 [ Other cigarette details: started at age 16] Alcohol intake: never Substance/Drug Use: never Vitals/I&O/Wt Last Vital Signs Temp 97.3 F L 10/12/24 18:23 Pulse 79 10/13/24 00:56 Resp 18 10/13/24 00:56 BP 209/88 10/12/24 20:00 Pulse Ox 95 10/13/24 00:56 O2 Del Method BiPAP 10/13/24 00:56 O2 Flow Rate 4 10/12/24 19:28 FiO2 50 10/13/24 00:56 10/12/24 10/12/24 10/13/24 14:59 22:59 06:59 Intake Total 250 / 250 250 / 500 Balance 250 / 250 250 / 500 Physical Exam Narrative: Physical exam was limited by the patient's body habitus and inability to follow commands. Const: GENERAL APPEARANCE: cooperative and ill appearing NUTRITIONAL APPEARANCE: obese ORIENTATION/CONSCIOUSNESS: Yes awake and Yes oriented to person HENMT: HEAD & SCALP: normocephalic and atraumatic NOSE: Normal external nose present EXTERNAL EAR: Yes external ears normal MOUTH: oral and palatal mucosa not normal (Dry) Eye: CONJUNCTIVA: Yes conjunctival abnormal positive bilateral pallor PUPIL: Yes Equal, round and reactive pupils present EOM: No EOM abnormal Neck/C-Spine: GENERAL: Yes normal visual inspection, Yes trachea midline and No lymphadenopathy Lymph: OTHER: no cervical or supraclavicular LAD Cardio: OTHER: RRR, no m/r/g or clicks. No carotid bruits. GI: OTHER: BS+, NT, ND, no guarding, no rebound, no rigidity or hepatosplenomegaly. Extremity: NARRATIVE EXTREMITY EXAM: 2+ pitting edema to the upper 1/3 of the bilateral tibia. Neuro: CONNOR COMA SCALE: document GCS findings Montgomery coma scale eye opening: Spontaneous Connor coma scale verbal response: Confused Connor coma scale motor response: Obey commands Montgomery coma scale total score: 14 SENSORY EXAM: No sensory level loss detected MOTOR EXAM: No Abnormal muscle tone present Psych: OTHER: unable to assess given mental status. Skin: GENERAL SKIN EXAM: no rashes or lesions noted Data 10/12/24 18:58 10/13/24 01:20 A&P Assessment and plan (1) Acute on chronic respiratory failure with hypoxia and hypercapnia: (2) Hyperkalemia: Plan Juan Thomas is a 69 year old man, on home hospice, w/ chronic hypoxic resp failure on 4L at baseline & BiPAP at night, IDDM2, chronic HFpEF, CKDIV, COPD on BiPAP, HTN, allergic rhinitis, hypothyroidism, Insomnia, RLS, who was brought to the ED on 10/13/2023 after he was deemed altered by the hospice nurse from [facility] on routine visit. #AMS: Multifactorial including possible infection in the setting of pulmonary/cardio/renal diagnoses #Acute on chronic hypoxic/hypercapneic respiratory failure #Possible Pneumonia - F/u CT chest. Ordered BCx. Repeat ABG ordered, but patient has not been able to comply to obtain an ABG. Only a venous blood gas could be obtained. -If patient becomes agitated, will start Precedex drip and transferred to the ICU. - Start Empiric abx. #Hyperkalemia: Multifactorial, but exacerbated by medication. - Consider holding spironolactone on discharge. - Will order Kayexalate #CKDIV - continue Lasix if CT chest is negative for pneumonia. - Defer Nephrology consult to day hospitalist. #Possible Acute on chronic HFpEF #HTN -Resume Lasix prn and Imdur. Held Metoprolol tartrate. -Hydralazine 1V prn. #IDDM2: sliding scale insulin low dose in the day and high dose SSI at bed time. Insulin glargine BID. #COPD: unclear if sounds heard on auscultation were transmitted upper airway sounds due to his altered mental status. Start and continue duonebs. #RLS: Resume home meds #Insomnia: Resume home meds. #Possible Anxiety/Depression: Resume home meds #Anemia of chronic disease #Vit D deficiency - Differ mgmt to day shift #Urinary retention #BPH: - Royal in place - On Tamsulosin at home. #Hx of L. craniectomy w/ a L. aneurysm clip - noted on CT head DVT ppx: lovenox Code status: FULL CODE WHILE ON HOSPICE? PDMP PDMP Reviewed: Not Reviewed Attestations Medical Necessity Statement*: Patient needs to be hospitalized for >2 midnights for his altered mental status and acute on chronic hypoxic/hypercapneic respiratory failure, with hyperkalemia. He has low threshold to be transferred to the ICU. Coding Level of Care Code 45818 High Time for a total of 90 minutes, includes reviewing past or interval history, examining/interviewing patient, placing orders, counseling patient/family/other support, updating patient/family/other support, discussing plan of care with staff, communicating with other healthcare providers, documenting encounter and coordinating care Diagnoses Acute on chronic respiratory failure with hypoxia and hypercapnia J96.21; J96.22 Hyperkalemia E87.5
[2024-10-13 03:12] LABS: INR 1.19 (0.8-1.2)
[2024-10-13 03:13] LABS: Partial Thromboplastin Time 26.9 SECONDS (23.9-36.7)
--- NOTE | 2024-10-13 04:57 | CTR_ITS ---
PROCEDURE INFORMATION: Exam: CT Chest Without Contrast; Diagnostic Exam date and time: 10/13/2024 5:06 AM Age: 69 years old Clinical indication: Shortness of breath; Additional info: Bibasilar atelectasis vs pneumonia TECHNIQUE: Imaging protocol: Diagnostic computed tomography of the chest without contrast. Radiation optimization: All CT scans at this facility use at least one of these dose optimization techniques: automated exposure control; mA and/or kV adjustment per patient size (includes targeted exams where dose is matched to clinical indication); or iterative reconstruction. COMPARISON: CT chest wo con [id number] 05/19/2024 8:47 PM RADIATION DOSE METRICS: Total DLP (mGy-cm): 798.1 FINDINGS: Lungs: Dense mild dependent opacities, oolv-bhoilif-skth-right representing either mild atelectasis or infiltrates. Pleural spaces: Unremarkable. No pneumothorax. No pleural effusion. Heart: Unremarkable. No cardiomegaly. No pericardial effusion. Coronary arteries: Coronary artery calcifications. Lymph nodes: Unremarkable. No enlarged lymph nodes. Vasculature: Unremarkable. No aortic aneurysm. Gallbladder and biliary ducts: Likely cholelithiasis. Adrenal glands: Stable nodular hyperplasia of the left adrenal. Bones/joints: Unremarkable. No acute fracture. Soft tissues: Unremarkable. CT/CT chest con [id number] IMPRESSION: Mild bibasilar opacities, left greater than right.
[2024-10-13 05:57] LABS: ABG PH Result 7.23 (7.35-7.45); Alveolar-Arterial Oxygen Gradi 4.5 mmHg (5-10); Arterial Blood Gas Hematocrit 27.2 % (42-52); Base Excess ABG 3.7 mmol/L (-2.0-2.0); Blood Gas Allen Test Pos; Blood Gas Operator Identificat gerca; Blood Gas Sample Site Radial, right; Carboxyhemoglobin 1.7 %THgb (0.4-20.1); HCO3 ABG 32.4 mmol/L (22-26); Ionized Calcium Level - ABG 1.2 mmol/L (1.1-1.4); Methemoglobin 0.7 % (0.4-1.5); Oxygen Device NC; Oxygen Saturation ABG 35.9; PO2 ABG 22.6 mmHg (80.0-100.0); Potassium Level - ABG 5.7 mmol/L (3.5-5.0); Total Hemoglobin 8.9 g/dL (14-18)
[2024-10-13 06:07] LABS: Blood Gas Sample Type Venous
[2024-10-13 06:08] LABS: ABG PCO2 76.6 mmHg (35-45)
[2024-10-13 06:35] LABS: Basophils % 0.2 %; Eosinophils % 0.2 %; Hematocrit 26.8 % (37-53); Lymphocytes # 0.9 10^3/uL (0.8-4.8); Lymphocytes % 7.6 %; Mean Corpuscular HGB Conc 29.9 g/dL (30-55); Mean Corpuscular Volume 93.7 fl (82-101); Mean Platelet Volume 10.3 fL (7.4-10.4); Monocytes # 1.1 10^3/uL (0.2-0.9); Monocytes % 10.1 %; Neutrophils # 9.22 10^3/uL (1.8-7.7); Neutrophils % 81.2 %; Nucleated Red Blood Cells % 0 %; Platelet Count 157 10^3/cmm (157-399); Red Blood Count 2.86 10^6/uL (3.85-5.65); Red Cell Distribution Width 15.6 % (12.1-15.1); White Blood Count 11.34 10^3/uL (3.29-11.43)
[2024-10-13 06:45] LABS: Alanine Aminotransferase 9 U/L (0-41); Albumin Level 3.4 g/dL (3.5-5.2); Alkaline Phosphatase 156 U/L (40-130); Anion Gap 15.8 (5-19); Aspartate Amino Transferase 23 U/L (0-40); Blood Urea Nitrogen 60 mg/dL (8-23); Calcium 8.4 mg/dL (8.5-10.5); Carbon Dioxide 27 mmol/L (22-29); Chloride 98 mmol/L (98-107); Creatinine Clr Calc Pharmacy 34.0243; Globulin 3.7 g/dL (1.3-4.6); Glomerular Filtration Rate 19.4 mL/min (90-130); Glucose 111 mg/dL (65-115); Magnesium 2.7 mg/dL (1.7-2.3); Osmolality Calculated 298 mOsm/kg (285-295); Potassium 5.8 mmol/L (3.5-5.1); Sodium 135 mmol/L (136-145); Thyroid Stimulating Hormone 0.43 uIU/mL (0.27-4.20); Total Bilirubin 0.2 mg/dL (0.15-1.2); Total Protein 7.1 g/dL (6.6-8.7)
--- NOTE | 2024-10-13 07:41 | PC.NURSE ---
THIS NURSE CONTACTED PATIENT SISTER, MAC ROBERSON [phone] TO GIVE UPDATE ON PATIENT. AFTER PATIENT UPDATE WAS GIVEN, PATIENT SISTER BEGAN TO MAKE COMMENTS OF MAYBE HE OVERDOSED AND HE KEPT ASKING ME IF HE WAS IN THE STRESS UNIT . THIS NURSE WAS UNAWARE OF SUSPICION OF POSSIBLE OVERDOSE UNTIL 0730 THIS AM. PER SISTER, THE CAREGIVER THAT FOUND PATIENT FOUND HIM ON THE FLOOR WITH PILLS ALL OVER . PER PT SISTER, PATIENT HAS ACCESS TO MEDICATIONS. PATIENT HAS HOSPICE NURSE THAT SEPARATES MEDICATIONS BUT PATIENT HAS ACCESS TO MORE THAN ONE DOSE. PATIENT TAKES PAIN MEDICATIONS AT HOME. PATIENT SISTER DOES NOT KNOW WHAT EXACT PILLS AND HOW MANY WERE FOUND NEXT TO PATIENT.
[2024-10-13] MEDS: dexmedeTOMIDine 0.9 % NaCL 400 MCG/100 ML PREMIX IV (08:39)
[2024-10-13] MEDS: AZITHROMYCIN ADD-Vantage 500 MG in 0.9% NaCl ADD-Vantage 250 ML 250 MG IV (08:40)
[2024-10-13] MEDS: enoxaparin 30 mg/0.3 mL Syringe SUBCUT (08:44)
[2024-10-13] MEDS: insulin glargine 100 units/1 mL 15 UNIT SUBCUT (08:44)
[2024-10-13] MEDS: ipratropium-albuterol 3 mL Neb INHALATION ×2 (08:52→13:40)
--- NOTE | 2024-10-13 09:00 | PC.PHAR ---
I spoke to Patients Pharmacy and the nurse at Dr. Valentine's office for patient's current med list.
[2024-10-13] MEDS: haloperidol inj 5 mg/mL INJ 1 mL IM ×2 (09:21→23:12)
[2024-10-13 10:33] LABS: ABG PCO2 68.7 mmHg (35-45)
[2024-10-13] MEDS: sodium polystyrene sulfonate 15 gm/60 mL Btl 30 GM PO (10:41)
[2024-10-13] MEDS: isosorbide mononitrate ER 30 mg Tablet PO (10:43)
[2024-10-13] MEDS: docusate sodium 100 mg Capsule 200 MG PO (10:44)
[2024-10-13] MEDS: sertraline 100 mg Tablet PO (10:44)
[2024-10-13] MEDS: hyDRALAzine 20 mg/mL INJ 1 mL 10 MG IVP (11:24)
[2024-10-13 11:38] LABS: Glucose Point of Care 217 mg/dL (70-110)
[2024-10-13] MEDS: FUROsemide 10 mg/mL SDV 4mL 40 MG IVP (11:40)
[2024-10-13] MEDS: insulin lispro 100 unit/1 mL SUBCUT (11:46)
[2024-10-13] MEDS: dexmedeTOMIDine 0.9 % NaCL 400 MCG/100 ML PREMIX 27.33 MCG IV (12:38)
[2024-10-13] MEDS: pramipexole 0.25 mg Tablet PO (15:23)
[2024-10-13] MEDS: gabapentin 100 mg Capsule PO (15:23)
--- NOTE | 2024-10-13 16:47 | P.PN_ITS ---
Subjective 2 Subjective: Admitted overnight. Patient presented to the ER via EMS when he was found unresponsive with saturation of 70% at home. Patient history gathered through his sister who is also the DPOA. Patient was on hospice. Currently on examination he is awake but not alert, incoherent, combative on 4 L saturating 92%. Appreciate ABG showing hypercapnia, acidosis. Around 1 L urine in Briceño bag. Vitals/I&O/Wt Last Vital Signs Temp 98.4 F 10/13/24 12:00 Pulse 64 10/13/24 15:27 Resp 13 10/13/24 13:40 BP 165/88 10/13/24 12:15 Pulse Ox 99 10/13/24 15:27 O2 Del Method BiPAP 10/13/24 13:40 O2 Flow Rate 50 10/13/24 13:40 FiO2 40 10/13/24 15:27 10/13/24 10/13/24 10/13/24 06:59 14:59 22:59 Intake Total 1250 / 1500 483.463 / 483.463 15.293 / 498.756 Output Total 1500 / 1500 1600 / 1600 Balance -250 / 0 -1116.537 / -1116.537 15.293 / -1101.244 Weight last 48 hrs Weight 156.807 kg Weight 156.178 kg Physical Exam 2 Narrative: General: No acute distress, awake, alert to self, address, date of , and current, combative HEENT: PERRLA, pupils bilaterally equal and reactive Chest: Normal vesicular breath sounds, decreased air entry bilaterally in lower zone, fine crackles bilateral lower zone, equal good air entry bilaterally CVS: S1-S2 regular, no murmurs, no tachycardia, no gallops, no rubs Abdomen: Soft, nontender, no organomegaly, bowel sounds present Neuro: No focal deficits, no facial deformity, power 5/5 in all limbs Urinary Catheter Management: Briceño: Cath Placed During This Visit: yes Reason for Continuing Indwelling Catheter: Accurate Measurement of Urinary Output in Critically Ill Patients Urinary Catheter Date of Insertion: 10/13/24 Data 10/13/24 06:01 10/13/24 06:01 Micro: Microbiology 10/13/24 07:23 Blood Culture - Preliminary Blood SPECIMEN COLLECTED 10/12/24 15:58 Blood Culture - Preliminary Blood SPECIMEN COLLECTED A&P Assessment and plan (1) Metabolic encephalopathy: (2) Acute on chronic respiratory failure with hypoxia and hypercapnia: (3) CHF (congestive heart failure): (4) Heart failure with preserved ejection fraction: (5) Hypertensive urgency: (6) Diabetes mellitus type 2, uncontrolled, with complications: (7) Chronic kidney disease (CKD): (8) Acute hyperkalemia: (9) Hospice care: (10) Hyperkalemia: Plan Juan Thomas is a 69 year old man, on home hospice, w/ chronic hypoxic resp failure on 4L at baseline & BiPAP at night, IDDM2, chronic HFpEF, CKDIV, COPD on BiPAP, HTN, allergic rhinitis, hypothyroidism, Insomnia, RLS, who was brought to the ED on 10/13/2023 after he was deemed altered by the hospice nurse from [facility] on routine visit. #AMS: Multifactorial including possible infection in the setting of pulmonary/cardio/renal diagnoses #Acute on chronic hypoxic/hypercapneic respiratory failure #Possible Pneumonia - F/u CT chest. Ordered BCx. Repeat ABG ordered, but patient has not been able to comply to obtain an ABG. Only a venous blood gas could be obtained. -If patient becomes agitated, will start Precedex drip and transferred to the ICU. - Start Empiric abx. #Hyperkalemia: Multifactorial, but exacerbated by medication. - Consider holding spironolactone on discharge. - Will order Kayexalate #CKDIV - continue Lasix if CT chest is negative for pneumonia. - Defer Nephrology consult to day hospitalist. #Possible Acute on chronic HFpEF #HTN -Resume Lasix prn and Imdur. Held Metoprolol tartrate. -Hydralazine 1V prn. #IDDM2: sliding scale insulin low dose in the day and high dose SSI at bed time. Insulin glargine BID. #COPD: unclear if sounds heard on auscultation were transmitted upper airway sounds due to his altered mental status. Start and continue duonebs. #RLS: Resume home meds #Insomnia: Resume home meds. #Possible Anxiety/Depression: Resume home meds #Anemia of chronic disease #Vit D deficiency - Differ mgmt to day shift #Urinary retention #BPH: - Briceño in place - On Tamsulosin at home. #Hx of L. craniectomy w/ a L. aneurysm clip - noted on CT head DVT ppx: lovenox Code status: FULL CODE WHILE ON HOSPICE? Plan for the day: 69-year-old gentleman with past medical history of CKD, diastolic congestive heart failure, morbid obesity who is on hospice as an outpatient with [facility] was brought into the hospital today with concerns for mental status alteration due to metabolic encephalopathy from acute on chronic hypoxic and hypercapnic respiratory failure, worsening renal functions with electrode abnormality currently incoherent and combative. History taken through sister over the phone who is also the DPOA. Patient currently having Acute on chronic hypoxic and hypercapnic respiratory failure. Metabolic and respiratory acidosis. MONCHO on CKD. Congestive heart failure exacerbation. Hypertensive urgency. Given concerns for hypertensive urgency he was given IV hydralazine. He did receive oral home antihypertensive. Started on Precedex drip and BiPAP ventilation. Given IV Lasix 40 mg. Detailed goals of care discussions were done with patient's sister/DPOA. She confirms he is on hospice as an outpatient. But states she is not aware what hospice exactly means. We discussed hospice usually is provided to patient Evan Webb life expectancy is expected to be 6 months or less. During hospice care concentration is given solely on keeping patient comfortable while continuing chronic medical therapy though patient remains comfortable while nature takes its own course which would also mean that patient could . We discussed following options. Option 1 continuing the current treatment while keeping patient full code. In which treatment would be concentrated on congestive heart failure, hypercapnia. And if and when if patient has cardiac arrest or respiratory failure plan would be to mechanically ventilate or chest compressions. And if patient improves possibly discharge to home or SNF. Also discussed during this time patient might need dialysis given his severe CKD and requiring further diuresis. Option 2: Would be to continue medical therapy but if and when patient has a cardiac arrest at that time patient to be transition to hospice care. If patient does not improve in 48 to 72 hours and we can discuss again about further goals of care. Option 3: Discharging back home with hospice. Hospice would entail as discussed above. Changing CODE STATUS to DNR/DNI. Patient sister states patient's goals in the past has been not to go on dialysis, be comfortable, be at home and not at group home. He always considered more about quality of life than quantity of life. After further discussions between family members sister decided about transitioning patient back to hospice care. She verbalizes the meaning of hospice care. Plan: DC BiPAP. Hold off on further antibiotics, diuretics, further blood work. Continue chronic medications. Discharge back home with hospice within next 24 hours. PDMP PDMP Reviewed: Not Reviewed Attestations 2 Medical Necessity Statement*: Requires further hospitalization received discharge planning is sought transfer goals of care discussions Diagnoses Metabolic encephalopathy G93.41 Acute on chronic respiratory failure with hypoxia and hypercapnia J96.21; J96.22 CHF (congestive heart failure) I50.9 Heart failure with preserved ejection fraction I50.30 Hypertensive urgency I16.0 Diabetes mellitus type 2, uncontrolled, with complications Chronic kidney disease (CKD) N18.9 Acute hyperkalemia E87.5 Hospice care Z51.5 Hyperkalemia E87.5
--- NOTE | 2024-10-13 19:22 | PC.NURSE ---
Report given to JORGITO Goodwin
[2024-10-14 00:03] VITALS: BP 118/68; PULSE 92; RESP 18; TEMP 36.6; O2SAT 78
[2024-10-14 03:34] VITALS: BP 162/72; PULSE 73; RESP 17; TEMP 36.5; O2SAT 93
[2024-10-14] MEDS: LORazepam 1 MG/0.5 ML injection IVP ×3 (05:14→14:14)
[2024-10-14] MEDS: haloperidol inj 5 mg/mL INJ 1 mL IVP (05:14)
--- NOTE | 2024-10-14 05:23 | PC.NURSE ---
Patient remained confused through out whole shift. He was pulling at Telemetry wires and iv trying to pull out/off. Said cork screw in butt,fork up, spoon up, I cant live like this! You trying to kill me? He is paranoid and refused to take meds said we were trying to confuse him. He has been notified new orders given and administered.
[2024-10-14 07:06] VITALS: BP 176/80; PULSE 84; RESP 16; TEMP 37.2; O2SAT 95
--- NOTE | 2024-10-14 07:46 | P.DS_ITS ---
Discharge Providers Date of Admission: 10/13/24 03:19 Date of Discharge: October 14, 2024 Attending Provider at Admission: Mary Swanson MD Attending Provider at Discharge: Sascha Em MD Primary Care Provider: Rachel Bills MD Diagnoses at Discharge Discharge Diagnosis (1) Metabolic encephalopathy: Status: Acute (2) Acute on chronic respiratory failure with hypoxia and hypercapnia: Status: Acute (3) CHF (congestive heart failure): Status: Acute (4) Heart failure with preserved ejection fraction: Status: Acute (5) Hypertensive urgency: Status: Acute (6) Diabetes mellitus type 2, uncontrolled, with complications: Status: Acute (7) Chronic kidney disease (CKD): Status: Acute (8) Acute hyperkalemia: Status: Acute (9) Hospice care: Status: Acute (10) Hyperkalemia: Status: Resolved Reason for Visit Reason for Visit: decreased LOC Brief History: History as per HPI: No family member was around at the time of admission. Patient was AOx1 to self at the time that he was being seen. Hx was obtained from chart review, the ED nurse and ED Physician. Tyrel Thomas is a 69 year old man, on home hospice, w/ chronic hypoxic resp failure on 4L at baseline & BiPAP at night, concern for non-compliance, IDDM2, chronic HFpEF, CKDIV, COPD on BiPAP, HTN, allergic rhinitis, hypothyroidism, Insomnia, RLS, who was brought to the ED on 10/13/2023 after he was deemed altered by the hospice nurse from [facility] on routine visit. Per report, the sister revoked home hospice. She told the ED physician and nurse that the patient was on hospice so that he can get help at home, not necessarily that he is end of life. Per ED physician, the patient declined [facility]. The ED nurse states that the home hospice nurse called to inform her that the patient was full code on hospice. When EMS arrived, patient was not on his O2 and his O2 sat was 83% on RA. In the ED, the patient was initially unresponsive to pain. He became agitated and agressive when waking up and was given a total of 1.5mg of Ativan. His vital signs were significant for elevated BP of 213/84 mmHg. His labs showed K of 6.5, Cr of 3.2 (baseline Cr of 2.6-3.3 as of 08/2023). His UDS was negative for THC, as has been shown in the past, but positive for opiates (on Tramadol prn at home). His UA was negative for a UTI, but showed fine granular casts. He had no leukocytosis. His ABG was 7.27/___/56.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 His CXR showed moderate mild to moderate L. basilar atelectasis vs pneumonia. His hyperkalemia was medidcally managed and he was placed on BiPAP. Also in the ED, per nurse, the patient had a UOP of ~400cc. At the time that he was being admitted, he wanted to urinate, but could not, so a royal catheter was placed and an additional 1L was removed. Per nurse, the patient's BP improved with Ativan. Per chart review, the patient was last seen here on 08/24/2024 for an acute otitis, that progressed to the point that he required intubation and transferred to [facility] in [place], [place]. Hospital Course Hospital Course Patient was admitted to the hospital for evaluation and management of acute on chronic hypoxic and hypercapnic respiratory failure leading to altered mental status from metabolic encephalopathy due to congestive heart failure, COPD exacerbation, MONCHO on CKD, hypertensive urgency requiring BiPAP ventilation. Patient was confused, altered and mildly combative for which he required Precedex drip. Multiple goals of care discussions were done with patient's sister/DPOA. She confirms he is on hospice as an outpatient. But states she is not aware what hospice exactly means. We discussed hospice usually is provided to patient [facility] life expectancy is expected to be 6 months or less. During hospice care concentration is given solely on keeping patient comfortable while continuing chronic medical therapy though patient remains comfortable while nature takes its own course which would also mean that patient could . We discussed following options. Option 1 continuing the current treatment while keeping patient full code. In which treatment would be concentrated on congestive heart failure, hypercapnia. And if and when if patient has cardiac arrest or respiratory failure plan would be to mechanically ventilate or chest compressions. And if patient improves possibly discharge to home or SNF. Also discussed during this time patient might need dialysis given his severe CKD and requiring further diuresis. Option 2: Would be to continue medical therapy but if and when patient has a cardiac arrest at that time patient to be transition to hospice care. If patient does not improve in 48 to 72 hours and we can discuss again about further goals of care. Option 3: Discharging back home with hospice. Hospice would entail as discussed above. Changing CODE STATUS to DNR/DNI. Patient sister states patient's goals in the past has been not to go on dialysis, be comfortable, be at home and not at [facility]. He always considered more about quality of life than quantity of life. After further discussions between family members sister decided about transitioning patient back to hospice care. She verbalizes the meaning of hospice care. He has been discharged back home with hospice services. Given morbid obesity, he has goals of being at home with comfort rather than being at a [place] [facility], significant debility patient would benefit from in-home services so that he can continue hospice services at home. Physical Exam Narrative: General: No acute distress, awake, alert to self, address, date of , and current, combative HEENT: PERRLA, pupils bilaterally equal and reactive Chest: Normal vesicular breath sounds, decreased air entry bilaterally in lower zone, fine crackles bilateral lower zone, equal good air entry bilaterally CVS: S1-S2 regular, no murmurs, no tachycardia, no gallops, no rubs Abdomen: Soft, nontender, no organomegaly, bowel sounds present Neuro: No focal deficits, no facial deformity, power 5/5 in all limbs Urinary Catheter Management: Royal: Cath Placed During This Visit: yes Reason for Continuing Indwelling Catheter: Accurate Measurement of Urinary Output in Critically Ill Patients Urinary Catheter Date of Insertion: 10/13/24 Discharge Data Studies Completed and Pending Completed Studies During Hospitalization Category Date Time Status CT chest wo con [id number] Stat Cat Scan 10/13/24 04:[address] head wo con* [id number] Stat Cat Scan 10/12/24 18:33 Completed XR chest 1V portable [id number] Stat Exams 10/12/24 18:33 Completed Pending at discharge Category Date Time Status Blood Culture Stat Lab 10/13/24 07:23 Results Sputum Culture and Gram Stain Stat Lab 10/13/24 06:57 Uncollected Radiology Impressions Chest X-Ray 10/12/24 18:33 IMPRESSION: [id number] left basilar atelectasis and/or pneumonia. Head CT 10/12/24 18:33 IMPRESSION: 1. Stable left craniectomy with left aneurysm clip and metallic artifact. 2. No acute intracranial findings. Chest CT 10/13/24 04:57 IMPRESSION: Mild bibasilar opacities, left greater than right. Microbiology 10/13/24 07:23 Blood Blood Culture - Preliminary NEGATIVE TO DATE 10/12/24 15:58 Blood Blood Culture - Preliminary NEGATIVE TO DATE Laboratory Results WBC 11.34 10^3/uL (3.29-11.43) 10/13/24 06:01 RBC 2.86 10^6/uL (3.85-5.65) L 10/13/24 06:01 Hgb 8.00 g/dL (11.27-16.99) L 10/13/24 06:01 Hct 26.8 % (37-53) L 10/13/24 06:01 MCV 93.7 fl (82-101) 10/13/24 06:01 MCH 28.0 pg (27-33) 10/13/24 06:01 MCHC 29.9 g/dL (30-55) L 10/13/24 06:01 RDW 15.6 % (12.1-15.1) H 10/13/24 06:01 Plt Count 157 10^3/cmm (157-399) 10/13/24 06:01 MPV 10.3 fL (7.4-10.4) 10/13/24 06:01 Neut % (Auto) 81.2 % 10/13/24 06:01 Lymph % (Auto) 7.6 % 10/13/24 06:01 Ware % (Auto) 10.1 % 10/13/24 06:01 Eos % (Auto) 0.2 % 10/13/24 06:01 Baso % (Auto) 0.2 % 10/13/24 06:01 Neut # (Auto) 9.22 10^3/uL (1.8-7.7) H 10/13/24 06:01 Lymph # (Auto) 0.9 10^3/uL (0.8-4.8) 10/13/24 06:01 Ware # (Auto) 1.1 10^3/uL (0.2-0.9) H 10/13/24 06:01 Eos # (Auto) 0.0 10^3/uL (0.0-0.8) 10/13/24 06:01 Baso # (Auto) 0.0 10^3/uL (0.0-0.1) 10/13/24 06:01 Nucleated RBC % (auto) 0 % 10/13/24 06:01 Nucleated RBCs # 0.0 /100WBC 10/13/24 06:01 PT 15.90 SECONDS (12.1-14.9) H 10/13/24 02:45 INR 1.19 (0.8-1.2) 10/13/24 02:45 APTT 26.9 SECONDS (23.9-36.7) 10/13/24 02:45 Specimen Type Venous 10/13/24 05:44 Sample Site Radial, right 10/13/24 05:44 ABG pH 7.23 (7.35-7.45) L 10/13/24 05:44 ABG pCO2 76.6 mmHg (35-45) H* 10/13/24 05:44 ABG pO2 22.6 mmHg (80.0-100.0) L* 10/13/24 05:44 ABG PO2/FiO2 Ratio 177 10/12/24 18:35 ABG HCO3 32.4 mmol/L (22-26) H 10/13/24 05:44 ABG O2 Saturation 35.9 10/13/24 05:44 ABG Base Excess 3.7 mmol/L (-2.0-2.0) H 10/13/24 05:44 Matthew Test Pos 10/13/24 05:44 A-a O2 Gradient 4.5 mmHg (5-10) L 10/13/24 05:44 Hematocrit 27.2 % (42-52) L 10/13/24 05:44 Hgb O2 Saturation 35.0 % (95-100) L 10/13/24 05:44 Carboxyhemoglobin 1.7 %THgb (0.4-20.1) 10/13/24 05:44 Methemoglobin 0.7 % (0.4-1.5) 10/13/24 05:44 Total Hemoglobin 8.9 g/dL (14-18) L 10/13/24 05:44 Sodium 138.0 mmol/L (131-143) 10/13/24 05:44 Potassium 5.7 mmol/L (3.5-5.0) H 10/13/24 05:44 Glucose 112.0 mg/dL (70-115) 10/13/24 05:44 Ionized Calcium 1.2 mmol/L (1.1-1.4) 10/13/24 05:44 O2 Delivery Device Nc 10/13/24 05:44 O2 Liters/Min 4.0 % 10/13/24 05:44 FiO2 32.0 % 10/12/24 18:35 Payroll And Benefits Coordinator ID [email or web address] 10/13/24 05:44 Sodium 135 mmol/L (136-145) L 10/13/24 06:01 Potassium 5.8 mmol/L (3.5-5.1) H 10/13/24 06:01 Chloride 98 mmol/L (98-107) 10/13/24 06:01 Carbon Dioxide 27 mmol/L (22-29) 10/13/24 06:01 Anion Gap 15.8 (5-19) 10/13/24 06:01 BUN 60 mg/dL (8-23) H 10/13/24 06:01 Creatinine 3.2 mg/dL (0.7-1.2) H 10/13/24 06:01 GFR Calculation 19.4 mL/min (90-130) L 10/13/24 06:01 Glucose 111 mg/dL (65-115) 10/13/24 06:01 POC Glucose 217 mg/dL (70-110) H 10/13/24 11:35 Calculated Osmolality 298 mOsm/kg (285-295) H 10/13/24 06:01 Lactic Acid 1.3 mmol/L (0.5-2.2) 10/12/24 18:58 Calcium 8.4 mg/dL (8.5-10.5) L 10/13/24 06:01 Phosphorus 4.0 mg/dL (2.5-4.5) 10/13/24 06:01 Magnesium 2.7 mg/dL (1.7-2.3) H 10/13/24 06:01 Total Bilirubin 0.2 mg/dL (0.15-1.2) 10/13/24 06:01 AST 23 U/L (0-40) 10/13/24 06:01 ALT 9 U/L (0-41) 10/13/24 06:01 Alkaline Phosphatase 156 U/L (40-130) H 10/13/24 06:01 Ammonia 20 umol/L (16-60) 10/13/24 01:20 Troponin T Baseline 178 ng/L (0-15) H* 10/12/24 18:58 NT-Pro-B Natriuret Pep 6418 pg/mL (0-125) H 10/12/24 18:58 Total Protein 7.1 g/dL (6.6-8.7) 10/13/24 06:01 Albumin 3.4 g/dL (3.5-5.2) L 10/13/24 06:01 Globulin 3.7 g/dL (1.3-4.6) 10/13/24 06:01 TSH 0.43 uIU/mL (0.27-4.20) 10/13/24 06:01 Urine Color Yellow (Yellow) 10/12/24 23:05 Urine Appearance Clear (CLEAR) 10/12/24 23:05 Urine pH 5.0 (5-7) 10/12/24 23:05 Ur Specific [place] 1.012 (1.005-1.030) 10/12/24 23:05 Urine Protein 2+ (Negative) A 10/12/24 23:05 Urine Glucose (UA) Negative (Normal) 10/12/24 23:05 Urine Ketones Negative (Negative) 10/12/24 23:05 Urine Blood Negative (Negative) 10/12/24 23:05 Urine Nitrate Negative (Negative) 10/12/24 23:05 Urine Bilirubin Negative (Negative) 10/12/24 23:05 Urine Urobilinogen 1.0 mg/dL (Negative) 10/12/24 23:05 Ur Leukocyte Esterase Negative (Negative) 10/12/24 23:05 Urine RBC 0-2 /hpf (0-2) 10/12/24 23:05 Urine WBC 0-5 /hpf (0-5) 10/12/24 23:05 Ur Squamous Epith Cells 0-5 /hpf (0-5) 10/12/24 23:05 Amorphous Sediment Not Reportable 10/12/24 23:05 Urine Bacteria None seen /hpf (NONE) 10/12/24 23:05 Hyaline Casts 29.78 /lpf 10/12/24 23:05 Fine Granular Casts 0-4 /lpf H 10/12/24 23:05 Urine Opiates Screen Positive ng/mL (Negative) H 10/12/24 23:05 Ur Barbiturates Screen Negative ng/mL (Negative) 10/12/24 23:05 Ur Phencyclidine Scrn Negative ng/mL (Negative) 10/12/24 23:05 Ur Amphetamines Screen Negative ng/mL (Negative) 10/12/24 23:05 U Benzodiazepines Scrn Negative ng/mL (Negative) 10/12/24 23:05 Urine Cocaine Screen Negative ng/mL (Negative) 10/12/24 23:05 U Marijuana (THC) Screen Negative ng/mL (Negative) 10/12/24 23:05 Ethyl Alcohol < 10 mg/dL (0-10) 10/12/24 18:58 Serum Ketones Negative (Negative) 10/12/24 18:58 Vitals Last Vital Signs Temp 99 F 10/14/24 07:06 Pulse 84 10/14/24 07:06 Resp 16 10/14/24 07:06 BP 176/80 10/14/24 07:06 Pulse Ox 95 10/14/24 07:06 O2 Del Method Nasal Cannula 10/14/24 07:06 O2 Flow Rate 4 10/13/24 16:00 FiO2 40 10/13/24 15:27 Discharge Plan Discharge Patient Disposition: Hospice - Home Condition: Stable Prescriptions: Continued levothyroxine 25 mcg tablet 25 mcg PO QAM levocetirizine 5 mg tablet 5 mg PO QAM tamsulosin 0.4 mg capsule 0.4 mg PO QPM ipratropium-albuterol 0.5 mg-3 mg(2.5 mg base)/3 mL Solution For Nebulization 3 ml inhalation Q6H PRN (Reason: Shortness Of Breath) Qty: 280 0RF pramipexole 0.25 mg Tablet 0.25 mg PO TID PRN (Reason: Restless Leg Syndrome) Qty: 90 0RF metoprolol tartrate 25 mg Tablet 25 mg PO BID@0900,2100 Qty: 120 0RF acetaminophen 500 mg Tablet 1,500 mg PO Q6H PRN (Reason: Pain) gabapentin 100 mg capsule 100 mg PO TID spironolactone 50 mg tablet 50 mg PO DAILY furosemide [Lasix] 40 mg tablet 40 mg PO DAILY hydralazine 100 mg tablet 100 mg PO TID PRN (Reason: Anxiety) trazodone 150 mg tablet 150 mg PO BEDTIME morphine concentrate 100 mg/5 mL (20 mg/mL) solution See Rx Instructions .ROUTE .COMPLEX Rx Instructions: take 0.5ml TO 1ml EVERY 2 HOURS NEEDED metolazone 5 mg tablet 5 mg PO DAILY tramadol 50 mg tablet 50 - 100 mg PO Q6H amlodipine 10 mg tablet 10 mg PO DAILY omeprazole 20 mg capsule,delayed release(DR/EC) 20 mg PO BID isosorbide mononitrate 30 mg tablet extended release 24 hr 30 mg PO DAILY sertraline 100 mg tablet 100 mg PO DAILY simvastatin 10 mg tablet 10 mg PO BEDTIME clonazepam 1 mg Tablet 1 mg PO BEDTIME PRN (Reason: Anxiety) ferrous sulfate [FeroSul] 325 mg (65 mg iron) Tablet 325 mg PO DAILY nystatin 100,000 unit/gram Cream 1 applic TOPICAL DAILY PRN (Reason: skin folds and groin area) Discharge Orders: Discharge Order (Routine); Ordered 10/14/24 Ordered By: Sascha Em Referrals: [facility] [Outside] Rachel Bills MD [Primary Care Provider, Family Practice] Discharge Diet: Advance as tolerated Discharge Activity: Increase activity as tolerated Patient Instructions: Hospice Care (GEN), Opioid Safety Activity Restrictions/Additional Instructions: Hospice Discharge Attestations Time Spent in Discharge Care*: greater than 30 min Specific Discharge Activities: educating and/or supporting family/caregiver, discussing with pcp/other providers, discussing with nurse case management/social workers/dc planners, documenting/other paperwork and evaluating patient/reviewing data Status at Discharge: Cognitive status at discharge: mildly impaired cognition , Behavioral status at discharge: cooperative , Functional status at discharge: other assisted ambulation , Overall status at discharge: patient has a new baseline Quality Metrics Clinical Quality Measures [ No reported AMI, CVA or VTE this stay] Coding Level of Care Code 24826 Total time (in minutes) for Discharge: 50 Diagnoses Metabolic encephalopathy G93.41 Acute on chronic respiratory failure with hypoxia and hypercapnia J96.21; J96.22 CHF (congestive heart failure) I50.9 Heart failure with preserved ejection fraction I50.30 Hypertensive urgency I16.0 Diabetes mellitus type 2, uncontrolled, with complications Chronic kidney disease (CKD) N18.9 Acute hyperkalemia E87.5 Hospice care Z51.5 Hyperkalemia E87.5
[2024-10-14 08:28] VITALS: PULSE 86; RESP 20; O2SAT 96
--- NOTE | 2024-10-14 08:36 | PC.NURSE ---
This DIRECTOR OF STUDENT AFFAIRS was assigned as a sitter to the patient. Family came to visit and while family was visiting she was on the phone with the daughter of the patient and the daughter asked the PT how he is doing and the Pt stated that he is not doing good and we the Nursing staff is not taking care of him.PT stated that we are disturbing him all the time and keep poking his butt .This DIRECTOR OF STUDENT AFFAIRS and the nurse assigned him just cleaned him from having a bowel movement. PT has been restless wanted his bed up and down all the time and complain of pain but he did refused all his medications.Family is still here and had spoken to the DR. PT is still restless.Will continue to monitor.
[2024-10-14] MEDS: HYDROmorphone 0.5 MG/0.5 ML INJ 0.4 MG IVP (17:05)
[2024-10-14] MEDS: haloperidol inj 5 mg/mL INJ 1 mL IM (18:11)
[2024-10-14 19:54] VITALS: BP 206/82; PULSE 80; RESP 21; TEMP 37.1; O2SAT 93
[2024-10-14] MEDS: hyDRALAzine 20 mg/mL INJ 1 mL 10 MG IVP (20:12)
[2024-10-14] MEDS: gabapentin 100 mg Capsule PO (20:12)
[2024-10-14 23:47] VITALS: BP 127/82; PULSE 104; RESP 22; TEMP 36.8; O2SAT 86
--- NOTE | 2024-10-15 05:21 | PC.NURSE ---
AT THE BEGINNING OF THE SHIFT, THIS RN WENT INTO THE PTS ROOM TO DO A SHIFT ASSESSMENT AND TO PASS PT MEDS. UPON ENTERING PT WAS SAYING I NEED HELP GETTING THIS OUT OF MY BUTT. WHEN I LAY HERE THE SCREW FALLS BACK DOWN MY BUTT. THIS RN HELPED THE PT ROLL ON HIS SIDE TO SEE IF THAT WOULD HELP. THIS RN DID A SHIFT ASSESSMENT TO THE BEST OF THIS RN ABILITY WHILE PT WAS MOVING HIS BODY ALL OVER THE BED. THIS RN TOLD THE PT WHAT MEDICATIONS HE HAS FOR THE NIGHT AND EXPLAINED THEM ALL TO THE PT. PT VERBALIZED UNDERSTANDING OF THE MEDICATIONS. WHEN THIS RN WENT TO ADMINISTER THE MEDICATIONS THE PT SAID NO. I AM NOT TAKING THAT. I DON'T WANT ANYTHING. THIS RN DOCUMENTED THE REFUSAL. A LITTLE WHILE LATER THE FINANCIAL COMPLIANCE EXAMINER NOTICED THAT THE PT WAS ON OXYGEN ANYMORE. THE FINANCIAL COMPLIANCE EXAMINER ASKED THIS RN IF THEY STILL NEEDED IT. THIS RN TOLD THEM YES, BUT IF HE REFUSES THATS OKAY HE IS COMFORT CARE. PT HAS BEEN OFF OXYGEN THE TOTAL OF THIS RNS SHIFT. PT REFUSED TO LET THE FINANCIAL COMPLIANCE EXAMINER OBTAIN 0400 VITALS. PT WAS ALSO FOUND TO HAVE SOILED HIS BRIEF. WHEN THE AID WENT TO CLEAN HIM HE REFUSED. THIS RN AND FINANCIAL COMPLIANCE EXAMINER ASSISTED THE PT INTO A CLEAN BRIEF.
[2024-10-15 07:14] VITALS: PULSE 85; RESP 18; TEMP 38; O2SAT 90
--- NOTE | 2024-10-15 07:57 | PC.NURSE ---
This aide was not able to get a blood pressure as the patient wouldn't stop moving his arm and refused for this aide to try and take it again.
[2024-10-15 08:51] VITALS: PULSE 94; RESP 20; O2SAT 93
[2024-10-15] MEDS: docusate sodium 100 mg Capsule 200 MG PO (09:22)
[2024-10-15] MEDS: isosorbide mononitrate ER 30 mg Tablet PO (09:22)
[2024-10-15] MEDS: pramipexole 0.25 mg Tablet PO (09:22)
[2024-10-15] MEDS: sertraline 100 mg Tablet PO (09:23)
[2024-10-15] MEDS: gabapentin 100 mg Capsule PO (09:23)
[2024-10-15] MEDS: FUROsemide 40 mg Tablet PO (09:23)
[2024-10-15] MEDS: metOLazone 5 MG Tablet PO (09:24)
--- NOTE | 2024-10-15 10:38 | P.PN_ITS ---
Subjective 2 Subjective: Patient could not be discharged yesterday as needed discharge family requested patient to be transition to SNF for comfort care. Overnight patient has not had any active issues. Has remained comfortable. Has refused his oral medications. No concerns for agitation. Date of discharge 10/15 Vitals/I&O/Wt Last Vital Signs Temp 100.4 F H 10/15/24 07:14 Pulse 94 10/15/24 08:51 Resp 20 H 10/15/24 08:51 BP 127/82 10/14/24 23:47 Pulse Ox 93 10/15/24 08:51 O2 Del Method Nasal Cannula 10/15/24 08:51 O2 Flow Rate 4 10/15/24 08:51 FiO2 40 10/13/24 15:27 10/14/24 10/15/24 10/15/24 22:59 06:59 14:59 Intake Total 120 / 360 Output Total 700 / 4200 Balance -580 / -3840 Weight last 48 hrs Weight 144.242 kg Weight 156.659 kg Physical Exam 2 Narrative: Deferred given comfort care status Urinary Catheter Management: Briceño: Cath Placed During This Visit: yes, but has since been removed by the nurse Reason for Continuing Indwelling Catheter: Accurate Measurement of Urinary Output in Critically Ill Patients Urinary Catheter Date of Insertion: 10/13/24 Date Urinary Catheter Removed: 10/14/24 Time Urinary Catheter Discontinued: 17:11 Data 10/13/24 06:01 10/13/24 06:01 Micro: Microbiology 10/13/24 07:23 Blood Culture - Preliminary Blood NEGATIVE TO DATE 10/12/24 15:58 Blood Culture - Preliminary Blood NEGATIVE TO DATE A&P Assessment and plan (1) Metabolic encephalopathy: (2) Acute on chronic respiratory failure with hypoxia and hypercapnia: (3) CHF (congestive heart failure): (4) Heart failure with preserved ejection fraction: (5) Hypertensive urgency: (6) Diabetes mellitus type 2, uncontrolled, with complications: (7) Chronic kidney disease (CKD): (8) Acute hyperkalemia: (9) Hospice care: (10) Hyperkalemia: Plan Juan Thomas is a 69 year old man, on home hospice, w/ chronic hypoxic resp failure on 4L at baseline & BiPAP at night, IDDM2, chronic HFpEF, CKDIV, COPD on BiPAP, HTN, allergic rhinitis, hypothyroidism, Insomnia, RLS, who was brought to the ED on 10/13/2023 after he was deemed altered by the hospice nurse from [facility] on routine visit. Plan for the day: 69-year-old gentleman with past medical history of CKD, diastolic congestive heart failure, morbid obesity who is on hospice as an outpatient with [facility] was brought into the hospital today with concerns for mental status alteration due to metabolic encephalopathy from acute on chronic hypoxic and hypercapnic respiratory failure, worsening renal functions with electrode abnormality currently incoherent and combative. History taken through sister over the phone who is also the DPOA. Patient currently having Acute on chronic hypoxic and hypercapnic respiratory failure. Metabolic and respiratory acidosis. MONCHO on CKD. Congestive heart failure exacerbation. Hypertensive urgency. Given concerns for hypertensive urgency he was given IV hydralazine. He did receive oral home antihypertensive. Started on Precedex drip and BiPAP ventilation. Given IV Lasix 40 mg. Detailed goals of care discussions were done with patient's sister/DPOA. She confirms he is on hospice as an outpatient. But states she is not aware what hospice exactly means. We discussed hospice usually is provided to patient [facility] life expectancy is expected to be 6 months or less. During hospice care concentration is given solely on keeping patient comfortable while continuing chronic medical therapy though patient remains comfortable while nature takes its own course which would also mean that patient could . We discussed following options. Option 1 continuing the current treatment while keeping patient full code. In which treatment would be concentrated on congestive heart failure, hypercapnia. And if and when if patient has cardiac arrest or respiratory failure plan would be to mechanically ventilate or chest compressions. And if patient improves possibly discharge to home or SNF. Also discussed during this time patient might need dialysis given his severe CKD and requiring further diuresis. Option 2: Would be to continue medical therapy but if and when patient has a cardiac arrest at that time patient to be transition to hospice care. If patient does not improve in 48 to 72 hours and we can discuss again about further goals of care. Option 3: Discharging back home with hospice. Hospice would entail as discussed above. Changing CODE STATUS to DNR/DNI. Patient sister states patient's goals in the past has been not to go on dialysis, be comfortable, be at home and not at retirement. He always considered more about quality of life than quantity of life. After further discussions between family members sister decided about transitioning patient back to hospice care. She verbalizes the meaning of hospice care. Plan: Discharged on 10/15. PDMP PDMP Reviewed: Not Reviewed Attestations 2 Medical Necessity Statement*: Requires further hospitalization while safe discharge planning with comfort care measures sought Diagnoses Metabolic encephalopathy G93.41 Acute on chronic respiratory failure with hypoxia and hypercapnia J96.21; J96.22 CHF (congestive heart failure) I50.9 Heart failure with preserved ejection fraction I50.30 Hypertensive urgency I16.0 Diabetes mellitus type 2, uncontrolled, with complications Chronic kidney disease (CKD) N18.9 Acute hyperkalemia E87.5 Hospice care Z51.5 Hyperkalemia E87.5
--- NOTE | 2024-10-15 11:15 | PC.CHAP ---
Pastoral Care Encounter/Spiritual Assessment Type of Contact [] Declined sourcing analyst visit [] Patient/Family/Request visit [] Outpatient visit [] Follow-up visit [] Physician referral [] Code/Alert [x] Routine visit [] Staff referral [] Actively dying [] Patient sleeping [x] Family support [] [] Out of room [] Palliative care [] [] Receiving care in room [] Pre-surgical visit [] Trauma [] Long length of stay [] ICU visit [] Other: Relational/Emotional Strength [x] Patient feels connected with others/family/visitors/staff [] Distress [] Loneliness/isolation [] Abandonment Spirituality of Patient [x] Person of Kasia [] Attends [facility] of their Kasia [x] Believes in Prayer [] Reads Bible or Baptism materials [] There are Spiritual issues to be addressed Childcare Attendant Interventions [x] Prayer [x] Active listening [x] Non-anxious presence [x] Spiritual/emotional support [] Crisis/trauma care [] Spiritual counseling [] Bereavement support [] Provided bereavement packet [] Provided Bible/devotional materials [] Provided toy/stuffed animal, coloring book to patient or family member [] Provided Communion [] Anointing/Raymond [] Salvation [x] Completed spiritual assessment [] Other: Impact on Illness or Injury [] Angry [] Fearful [] Anxious [] Often cries [] Exhaustion [] Unable to work [] Unable to attend rastafari [] Unable to walk/stand [] Unable to read [] Unable to drive [] Unable to eat/drink [] Unable to sleep [] Unable to be with family [] Patient intubated [] Other: Summary Time spent with patient 5 mjinh
[2024-10-15 12:04] VITALS: BP 186/77; PULSE 87; RESP 17; TEMP 37.2; O2SAT 95
[2024-10-15 13:27] VITALS: BP 186/77; PULSE 87; RESP 17; TEMP 37.2; O2SAT 95
== END 2024-10-15 12:45 | disposition hospice, home (50) | DRG 189 ==
LOC: ER 10-13 03:22 → ER IP 10-13 04:11 → ICU 10-13 07:17 → MEDSURG 10-13 20:03
PROVIDERS: Admitting Provider Internal Medicine; Emergency Provider Student in an Organized Health Care Education/Training Program; PCP Family Medicine; Visit Provider Student in an Organized Health Care Education/Training Program
DX: J96.22 Acute and chronic respiratory failure with hypercapnia (principal); J18.9 Pneumonia, unspecified organism; G93.41 Metabolic encephalopathy; I50.31 Acute diastolic (congestive) heart failure; I13.0 Hypertensive heart and chronic kidney disease with heart failure and stage 1 through stage 4 chronic kidney disease, or unspecified chronic kidney disease; N18.4 Chronic kidney disease, stage 4 (severe); Z68.41 Body mass index [BMI] 40.0-44.9, adult; E87.4 Mixed disorder of acid-base balance; N17.9 Acute kidney failure, unspecified; J98.11 Atelectasis; J44.0 Chronic obstructive pulmonary disease with (acute) lower respiratory infection; J44.1 Chronic obstructive pulmonary disease with (acute) exacerbation; J96.21 Acute and chronic respiratory failure with hypoxia; Z66 Do not resuscitate; I16.0 Hypertensive urgency; E11.22 Type 2 diabetes mellitus with diabetic chronic kidney disease; E87.5 Hyperkalemia; J44.9 Chronic obstructive pulmonary disease, unspecified; G47.00 Insomnia, unspecified; G25.81 Restless legs syndrome; E66.01 Morbid (severe) obesity due to excess calories; F41.9 Anxiety disorder, unspecified; F32.A Depression, unspecified; N40.1 Benign prostatic hyperplasia with lower urinary tract symptoms; R33.8 Other retention of urine; E55.9 Vitamin D deficiency, unspecified; F17.210 Nicotine dependence, cigarettes, uncomplicated; D63.1 Anemia in chronic kidney disease; D50.9 Iron deficiency anemia, unspecified; Z99.81 Dependence on supplemental oxygen
CPT/HCPCS: 36416; 36600; 51702; 70450; 71045; 71250; 80048; 80051; 80053; 80306; 80307; 81001; 82009; 82140; 82330; 82803; 82805; 82962; 83605; 83735; 83880; 84100; 84443; 84484; 85025; 85610; 85730; 87040; 93005; 94640; 94660; 96365; 96367; 96372; 96375; 96376; 99285; J0360; J0456; J0612; J1171; J1630; J1650; J1815; J1938; J2060; J7030; J7050; J7799; J9999

== ENCOUNTER 2024-10-25 19:30 | Emergency (ER) | payer MEDICARE, SELFPAY ==
[2024-10-25] VITALS (8 sets, daily range): BP systolic 189–197; BP diastolic 81–97; PULSE 68–72; RESP 12–94; TEMP 36.9; O2SAT 90–95; BMI 32.1
--- NOTE | 2024-10-25 19:36 | ECG_ITS ---
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
[2024-10-25] MEDS: cloNIDine 0.1 mg Tablet PO ×2 (20:42→21:54)
[2024-10-25] MEDS: ipratropium-albuterol 3 mL Neb INHALATION (20:47)
--- NOTE | 2024-10-25 21:19 | W.ED.RECABL ---
HPI - Recheck/Abnormal Lab/Rx General: Chief Complaint: Recheck/Abnormal Lab/Rx Stated Complaint: HIGH BP Time Seen by Provider: 10/25/24 19:58 History of Present Illness: 69-year-old male, Mr. Juan Thomas, presents from [facility] with elevated blood pressure and earlier complaints of shortness of breath. Patient was recently discharged from hospital 10 days ago and is currently on hospice care. Initial blood pressure was noted to be elevated at 197/94. Patient reports feeling 'relaxed' at present and denies current shortness of breath, though acknowledges having some earlier. He denies chest pain or other acute complaints. Patient is currently on his baseline oxygen requirement of 4 liters. Of note, patient had an episode of incontinence during his ED stay. Related Data Home Medications ?Medication ?Instructions ?Recorded ?Confirmed levocetirizine 5 mg tablet 5 mg PO QAM 02/16/22 10/13/24 levothyroxine 25 mcg tablet 25 mcg PO QAM 02/16/22 10/13/24 tamsulosin 0.4 mg capsule 0.4 mg PO QPM 12/16/23 10/13/24 acetaminophen 500 mg tablet 1,500 mg PO Q6H PRN Pain 08/24/24 10/13/24 furosemide 40 mg tablet (Lasix) 40 mg PO DAILY 08/24/24 10/13/24 gabapentin 100 mg capsule 100 mg PO TID 08/24/24 10/13/24 hydralazine 100 mg tablet 100 mg PO TID PRN Anxiety 08/24/24 10/13/24 spironolactone 50 mg tablet 50 mg PO DAILY 08/24/24 10/13/24 trazodone 150 mg tablet 150 mg PO BEDTIME 08/24/24 10/13/24 amlodipine 10 mg tablet 10 mg PO DAILY 10/13/24 10/13/24 clonazepam 1 mg tablet 1 mg PO BEDTIME PRN Anxiety 10/13/24 10/13/24 ferrous sulfate 325 mg (65 mg 325 mg PO DAILY 10/13/24 10/13/24 iron) tablet (FeroSul) isosorbide mononitrate 30 mg 30 mg PO DAILY 10/13/24 10/13/24 tablet,extended release 24 hr metolazone 5 mg tablet 5 mg PO DAILY 10/13/24 10/13/24 morphine concentrate 100 mg/5 mL See Rx Instructions .Route .COMPLEX 10/13/24 10/13/24 (20 mg/mL) oral solution nystatin 100,000 unit/gram topical 1 applic topical DAILY PRN skin 10/13/24 10/13/24 cream folds and groin area omeprazole 20 mg capsule,delayed 20 mg PO BID 10/13/24 10/13/24 release sertraline 100 mg tablet 100 mg PO DAILY depression 10/13/24 10/13/24 simvastatin 10 mg tablet 10 mg PO BEDTIME 10/13/24 10/13/24 tramadol 50 mg tablet 50 - 100 mg PO Q6H 10/13/24 10/13/24 Previous Rx's ?Medication ?Instructions ?Recorded ipratropium 0.5 mg-albuterol 3 mg 3 ml inhalation Q6H PRN Shortness 12/19/23 (2.5 mg base)/3 mL nebulization Of Breath #280 mL soln pramipexole 0.25 mg tablet 0.25 mg PO TID PRN Restless Leg 12/19/23 Syndrome #90 tabs metoprolol tartrate 25 mg tablet 25 mg PO BID@0900,2100 #120 tabs 05/22/24 Allergies Allergy/AdvReac Type Severity Reaction Status Date / Time No Known Allergies Allergy Verified 07/03/24 16:20 [facility]: Medical History (Updated 10/25/24 @ 21:22 by Jovani Georges MD) Hospice care Pneumonia Anemia Acute hyperkalemia Hypotension Hypochromic microcytic anemia Anxiety and depression Normocytic anemia Heart failure Atrial flutter Respiratory failure Iron deficiency anemia Brain aneurysm Necrotizing fasciitis of shoulder region Diabetes Surgical History Status post colonoscopy (10/18/21) H/O esophagogastroduodenoscopy (10/18/21) History of shoulder surgery Family History Grandfather Clotting disorder Family/Other CAD (coronary artery disease) Cancer Diabetes Stroke Grandmother CAD (coronary artery disease) Dementia Father Cancer Lung disease Mother Cancer Denies family history of Chronic kidney disease (CKD) Suicide Anesthesia complication Bleeding disorder Social History Smoking and tobacco/nicotine status: current every day tobacco/nicotine user (1 ppd, smoked x 50 years) cigarettes Packs smoked per day: 2 Years cigarettes smoked: 50 [ Other cigarette details: started at age 16] Alcohol intake: never Substance/Drug Use: never Course Vital Signs: Vital signs: Vital Signs Temperature 98.4 F 10/25/24 19:31 Pulse Rate 68 10/25/24 20:54 Respiratory Rate 17 10/25/24 20:48 Blood Pressure 197/94 10/25/24 20:42 Pulse Oximetry 95 10/25/24 20:48 Oxygen Delivery Me thod Nasal Cannula 10/25/24 20:48 Oxygen Flow Rate 3 10/25/24 20:48 MDM - Recheck/Abnormal Lab/Rx Medical Decision Making ROS: Constitutional: Denies fever Respiratory: Reports earlier shortness of breath, now improved Cardiovascular: Denies chest pain Gastrointestinal: Denies abdominal pain Musculoskeletal: Reports discomfort from prolonged sitting All other systems reviewed and negative PAST HISTORICAL DATA: PMH: Chronic renal failure, Hyperkalemia, Respiratory failure requiring oxygen supplementation Recent hospitalization 10 days ago for similar complaints Currently enrolled in hospice care with DNR status VITAL SIGNS: Blood Pressure: 197/94 Oxygen: On 4L nasal cannula (baseline) PHYSICAL EXAM: General: Alert, non-toxic appearing HEENT: Head normocephalic and atraumatic. Mucous membranes moist Neck: Supple Respiratory: Faint wheezing noted on auscultation, no increased work of breathing Cardiovascular: Regular rate and rhythm Extremities: No significant peripheral edema noted INITIAL IMPRESSION AND PLAN: Given the history and presentation, the primary working diagnosis is hypertensive urgency in a hospice patient. Additional considerations include acute on chronic respiratory failure. Plan: 1. Administer clonidine for blood pressure control 2. Provide albuterol/DuoNeb treatment for wheezing 3. Discuss goals of care with family/POA 4. Arrange return to hospice facility TEST INTERPRETATIONS: No laboratory or imaging studies performed in accordance with hospice goals of care PROCEDURES: No invasive procedures performed CONSIDERED BUT NOT PERFORMED: Laboratory studies including renal function and potassium level CONSIDERED but NOT DONE due to established hospice status and family agreement to avoid aggressive interventions Imaging studies CONSIDERED but NOT DONE as they would not knife changer given established goals of care FINAL IMPRESSION: Primary diagnosis: Hypertensive urgency in the setting of terminal illness Secondary diagnoses: Chronic respiratory failure, Chronic renal failure The clinical picture is not currently suggestive of acute coronary syndrome or acute decompensated heart failure Although other conditions were also considered, they were deemed unlikely based on the clinical information available CLINICAL DISPOSITION: The patient's current condition is stable in my estimation and the most appropriate and indicated disposition at this time is discharge back to hospice facility. Rationale: Patient's symptoms have improved with minimal intervention, and continued care can be appropriately managed in the hospice setting in accordance with established goals of care. This plan has been discussed and agreed upon with both the patient's daughter and sister (POA). CASE SUMMARY: 69-year-old male hospice patient presented with hypertensive urgency and improved shortness of breath. Recent hospital discharge 10 days prior for similar issues. After discussion with family/POA, care focused on comfort measures in alignment with hospice goals. Treated with clonidine for blood pressure and breathing treatment for wheezing. Patient stabilized and arranged for return to hospice facility with family agreement. No radiology studies performed this visit Discharge Plan Discharge Patient Disposition: Home Clinical Impression: Asymptomatic hypertensive urgency, Hospice care patient Condition: Stable Prescriptions: No Action levothyroxine 25 mcg tablet 25 mcg PO QAM levocetirizine 5 mg tablet 5 mg PO QAM tamsulosin 0.4 mg capsule 0.4 mg PO QPM ipratropium-albuterol 0.5 mg-3 mg(2.5 mg base)/3 mL Solution For Nebulization 3 ml inhalation Q6H PRN (Reason: Shortness Of Breath) Qty: 280 0RF pramipexole 0.25 mg Tablet 0.25 mg PO TID PRN (Reason: Restless Leg Syndrome) Qty: 90 0RF metoprolol tartrate 25 mg Tablet 25 mg PO BID@0900,2100 Qty: 120 0RF acetaminophen 500 mg Tablet 1,500 mg PO Q6H PRN (Reason: Pain) gabapentin 100 mg capsule 100 mg PO TID spironolactone 50 mg tablet 50 mg PO DAILY furosemide [Lasix] 40 mg tablet 40 mg PO DAILY hydralazine 100 mg tablet 100 mg PO TID PRN (Reason: Anxiety) trazodone 150 mg tablet 150 mg PO BEDTIME morphine concentrate 100 mg/5 mL (20 mg/mL) solution See Rx Instructions .ROUTE .COMPLEX Rx Instructions: take 0.5ml TO 1ml EVERY 2 HOURS NEEDED metolazone 5 mg tablet 5 mg PO DAILY tramadol 50 mg tablet 50 - 100 mg PO Q6H amlodipine 10 mg tablet 10 mg PO DAILY omeprazole 20 mg capsule,delayed release(DR/EC) 20 mg PO BID isosorbide mononitrate 30 mg tablet extended release 24 hr 30 mg PO DAILY sertraline 100 mg tablet 100 mg PO DAILY simvastatin 10 mg tablet 10 mg PO BEDTIME clonazepam 1 mg Tablet 1 mg PO BEDTIME PRN (Reason: Anxiety) ferrous sulfate [FeroSul] 325 mg (65 mg iron) Tablet 325 mg PO DAILY nystatin 100,000 unit/gram Cream 1 applic TOPICAL DAILY PRN (Reason: skin folds and groin area) Discharge Orders: Discharge ED (Routine); Ordered 10/25/24 Ordered By: Jovani Georges Discharge Activity: Increase activity as tolerated Patient Instructions: Hospice Care, Opioid Safety, Pain Management Activity Restrictions/Additional Instructions: DISCHARGE INSTRUCTIONS: Patient to return to hospice facility with continued hospice care. Continue current medications and oxygen supplementation as prescribed. Follow up with hospice team for ongoing care and symptom management. Hospice provider can further manage chronic hypertension as necessary and may consider increasing metoprolol to 50 mg twice daily. Print Language: [place] Coding Level of Care Code ED Racker [employer] Board for Josh Gallego
--- NOTE | 2024-10-25 22:10 | W.ED.RECABL ---
HPI - Recheck/Abnormal Lab/Rx General: Chief Complaint: Recheck/Abnormal Lab/Rx Stated Complaint: HIGH BP Time Seen by Provider: 10/25/24 19:58 Related Data Home Medications ?Medication ?Instructions ?Recorded ?Confirmed levocetirizine 5 mg tablet 5 mg PO QAM 02/16/22 10/13/24 levothyroxine 25 mcg tablet 25 mcg PO QAM 02/16/22 10/13/24 tamsulosin 0.4 mg capsule 0.4 mg PO QPM 12/16/23 10/13/24 acetaminophen 500 mg tablet 1,500 mg PO Q6H PRN Pain 08/24/24 10/13/24 furosemide 40 mg tablet (Lasix) 40 mg PO DAILY 08/24/24 10/13/24 gabapentin 100 mg capsule 100 mg PO TID 08/24/24 10/13/24 hydralazine 100 mg tablet 100 mg PO TID PRN Anxiety 08/24/24 10/13/24 spironolactone 50 mg tablet 50 mg PO DAILY 08/24/24 10/13/24 trazodone 150 mg tablet 150 mg PO BEDTIME 08/24/24 10/13/24 amlodipine 10 mg tablet 10 mg PO DAILY 10/13/24 10/13/24 clonazepam 1 mg tablet 1 mg PO BEDTIME PRN Anxiety 10/13/24 10/13/24 ferrous sulfate 325 mg (65 mg 325 mg PO DAILY 10/13/24 10/13/24 iron) tablet (FeroSul) isosorbide mononitrate 30 mg 30 mg PO DAILY 10/13/24 10/13/24 tablet,extended release 24 hr metolazone 5 mg tablet 5 mg PO DAILY 10/13/24 10/13/24 morphine concentrate 100 mg/5 mL See Rx Instructions .Route .COMPLEX 10/13/24 10/13/24 (20 mg/mL) oral solution nystatin 100,000 unit/gram topical 1 applic topical DAILY PRN skin 10/13/24 10/13/24 cream folds and groin area omeprazole 20 mg capsule,delayed 20 mg PO BID 10/13/24 10/13/24 release sertraline 100 mg tablet 100 mg PO DAILY depression 10/13/24 10/13/24 simvastatin 10 mg tablet 10 mg PO BEDTIME 10/13/24 10/13/24 tramadol 50 mg tablet 50 - 100 mg PO Q6H 10/13/24 10/13/24 Previous Rx's ?Medication ?Instructions ?Recorded ipratropium 0.5 mg-albuterol 3 mg 3 ml inhalation Q6H PRN Shortness 12/19/23 (2.5 mg base)/3 mL nebulization Of Breath #280 mL soln pramipexole 0.25 mg tablet 0.25 mg PO TID PRN Restless Leg 12/19/23 Syndrome #90 tabs metoprolol tartrate 25 mg tablet 25 mg PO BID@0900,2100 #120 tabs 05/22/24 clonidine HCl 0.1 mg tablet 0.1 mg PO Q8H PRN hypertensive 10/25/24 emergency #20 tabs Allergies Allergy/AdvReac Type Severity Reaction Status Date / Time No Known Allergies Allergy Verified 07/03/24 16:20 [facility]: Medical History (Updated 10/25/24 @ 21:22 by Jovani Georges MD) Hospice care Pneumonia Anemia Acute hyperkalemia Hypotension Hypochromic microcytic anemia Anxiety and depression Normocytic anemia Heart failure Atrial flutter Respiratory failure Iron deficiency anemia Brain aneurysm Necrotizing fasciitis of shoulder region Diabetes Surgical History Status post colonoscopy (10/18/21) H/O esophagogastroduodenoscopy (10/18/21) History of shoulder surgery Family History Grandfather Clotting disorder Family/Other CAD (coronary artery disease) Cancer Diabetes Stroke Grandmother CAD (coronary artery disease) Dementia Father Cancer Lung disease Mother Cancer Denies family history of Chronic kidney disease (CKD) Suicide Anesthesia complication Bleeding disorder Social History Smoking and tobacco/nicotine status: current every day tobacco/nicotine user (1 ppd, smoked x 50 years) cigarettes Packs smoked per day: 2 Years cigarettes smoked: 50 [ Other cigarette details: started at age 16] Alcohol intake: never Substance/Drug Use: never Course Vital Signs: Vital signs: Vital Signs Temperature 98.4 F 10/25/24 19:31 Pulse Rate 72 10/25/24 21:47 Respiratory Rate 17 10/25/24 20:48 Blood Pressure 194/81 10/25/24 21:54 Pulse Oximetry 94 10/25/24 21:47 Oxygen Delivery Me thod Nasal Cannula 10/25/24 20:48 Oxygen Flow Rate 3 10/25/24 20:48 Discharge Plan Discharge Patient Disposition: Home Clinical Impression: Asymptomatic hypertensive urgency, Hospice care patient Condition: Stable Prescriptions: New clonidine HCl 0.1 mg tablet 0.1 mg PO Q8H PRN (Reason: hypertensive emergency) Qty: 20 0RF No Action levothyroxine 25 mcg tablet 25 mcg PO QAM levocetirizine 5 mg tablet 5 mg PO QAM tamsulosin 0.4 mg capsule 0.4 mg PO QPM ipratropium-albuterol 0.5 mg-3 mg(2.5 mg base)/3 mL Solution For Nebulization 3 ml inhalation Q6H PRN (Reason: Shortness Of Breath) Qty: 280 0RF pramipexole 0.25 mg Tablet 0.25 mg PO TID PRN (Reason: Restless Leg Syndrome) Qty: 90 0RF metoprolol tartrate 25 mg Tablet 25 mg PO BID@0900,2100 Qty: 120 0RF acetaminophen 500 mg Tablet 1,500 mg PO Q6H PRN (Reason: Pain) gabapentin 100 mg capsule 100 mg PO TID spironolactone 50 mg tablet 50 mg PO DAILY furosemide [Lasix] 40 mg tablet 40 mg PO DAILY hydralazine 100 mg tablet 100 mg PO TID PRN (Reason: Anxiety) trazodone 150 mg tablet 150 mg PO BEDTIME morphine concentrate 100 mg/5 mL (20 mg/mL) solution See Rx Instructions .ROUTE .COMPLEX Rx Instructions: take 0.5ml TO 1ml EVERY 2 HOURS NEEDED metolazone 5 mg tablet 5 mg PO DAILY tramadol 50 mg tablet 50 - 100 mg PO Q6H amlodipine 10 mg tablet 10 mg PO DAILY omeprazole 20 mg capsule,delayed release(DR/EC) 20 mg PO BID isosorbide mononitrate 30 mg tablet extended release 24 hr 30 mg PO DAILY sertraline 100 mg tablet 100 mg PO DAILY simvastatin 10 mg tablet 10 mg PO BEDTIME clonazepam 1 mg Tablet 1 mg PO BEDTIME PRN (Reason: Anxiety) ferrous sulfate [FeroSul] 325 mg (65 mg iron) Tablet 325 mg PO DAILY nystatin 100,000 unit/gram Cream 1 applic TOPICAL DAILY PRN (Reason: skin folds and groin area) Discharge Orders: Discharge ED (Routine); Ordered 10/25/24 Ordered By: Jovani Georges Discharge Activity: Increase activity as tolerated Patient Instructions: Hospice Care, Opioid Safety, Pain Management Activity Restrictions/Additional Instructions: DISCHARGE INSTRUCTIONS: Patient to return to hospice facility with continued hospice care. Continue current medications and oxygen supplementation as prescribed. Follow up with hospice team for ongoing care and symptom management. Hospice provider can further manage chronic hypertension as necessary and may consider increasing metoprolol to 50 mg twice daily. Print Language: [place] Coding Level of Care Code ED Local [employer] Legislator for Josh Gallego
== END 2024-10-25 22:34 | disposition home or self-care (01) ==
PROVIDERS: Emergency Provider Student in an Organized Health Care Education/Training Program
DX: I16.0 Hypertensive urgency (principal); I10 Essential (primary) hypertension; R32 Unspecified urinary incontinence; Z99.81 Dependence on supplemental oxygen
CPT/HCPCS: 93005; 94640; 99283; J9999